=== PATIENT | male | born 1950 | race Caucasian/White ===

== ENCOUNTER 2020-04-04 10:07 | Emergency (ER) | payer MEDICARE, MEDICAID, SELFPAY ==
[2020-04-04 10:12] VITALS: BP 200/101; BP 202/83; PULSE 83; PULSE 84; RESP 20; TEMP 36.6; O2SAT 98; BMI 33.1
--- NOTE | 2020-04-04 11:11 | ED.MALEGU ---
HPI - Male Genitourinary General Chief complaint: Urogenital-Male Stated complaint: BLOOD IN URINE,HIGH BLOOD PRESSURE Time Seen by Provider: 04/04/20 11:11 Source: patient Mode of arrival: ambulatory Limitations: no limitations History of Present Illness HPI Narrative: patient recently admitted and discharged on 02/01 for UTI /urosepsis urine culture grew Enterococcus which was resistant to multiple antibiotics was prescribed Levaquin for 2 weeks. Patient does have history of hematuria post recent bladder intervention for bladder cancer in 01/05/20 and there is no change in hematuria patient came here as continuation of hematuria and now complaining of pain on the left side of abdomen for last few days Related Data Sexually active: Yes Allergies Allergy/AdvReac Type Severity Reaction Status Date / Time piperacillin [From ZOSYN] Allergy Intermediate REDNESS/WARMTH Verified 04/04/20 10:27 TO IV SITE. tazobactam [From ZOSYN] Allergy Intermediate REDNESS/WARMTH Verified 04/04/20 10:27 TO IV SITE. ibuprofen Allergy Unknown Unknown Verified 04/04/20 10:27 lamotrigine [Lamictal] Allergy Unknown Unknown Verified 04/04/20 10:27 Anti-Inflammatory Enzyme Allergy Unknown rash on Uncoded 02/12/20 00:00 both legs Review of Systems Review of Systems: Constitutional : No Weight loss, No Fever, No Chills, No Night Sweats, No Fatigue, No Malaise ENT/Mouth : No Hearing loss, No Ear Pain, No Nasal Congestion, No Sinus Pain, No Hoarseness, No sore throat, No Rhinorrhea, No Swallowing Difficulty Eyes: No Eye Pain, No Swelling, No Redness, No Foreign Body, No Discharge, No Vision Changes Cardiovascular : No Chest Pain, No SOB, No Dyspnea on Exertion, No Orthopnea, No Edema, No Palpitations Respiratory : No Cough, No Sputum, No Wheezing, No Smoke Exposure, No Dyspnea Gastrointestinal : neg Nausea, neg Vomiting, neg Diarrhea, positive abdominal Pain, No Hematochezia, No Melena Genitourinary : no irregular bleeding, No Dysuria, No Urinary Frequency, ++Hematuria, No Urinary Incontinence, No Urgency, No Flank Pain, No Urinary Flow Changes, No Hesitancy Musculoskeletal : No joint pain, No Myalgias, No Joint Swelling Skin : No Skin Lesions, No rash Neuro : No Weakness, No Numbness, No Paresthesias, No Loss of Consciousness, No Dizziness, No Headache Psych : No Anxiety/Panic, No Depression, No SI/HI/AH/VH, No Social Issues, Heme/Lymph: No Bruising, No Bleeding,No Lymphadenopathy Endocrine : No Polyuria, No Polydipsia, No Temperature Intolerance NEUROLOGIC: Alert and oriented x 3. Strength and sensation to light touch were grossly intact x 4. Yes all other systems are reviewed and are negative PMFSH Past Medical History Medical History Asthma Bladder cancer H disease HLD (hyperlipidemia) HTN (hypertension) Metabolic encephalopathy Sepsis Social History Social History Alcohol intake: never Smoking Status: Never smoker Smoked in Last 30 Days: No Use of substances other than those prescribed or required for medical reasons: No Advance Directives: No Advance Directives Information Provided: Yes Physical Exam Vital Signs and I&O and Narrative: Vital Signs and I&O: Vital Signs Temp 982 F H 04/04/20 13:41 Pulse 68 04/04/20 13:41 Resp 18 04/04/20 13:41 BP 188/82 H 04/04/20 13:41 Pulse Ox 97 04/04/20 13:41 Intake & Output 04/03/20 04/04/20 04/04/20 18:59 06:59 18:59 Intake Total 1000 / 1000 Balance 1000 / 1000 Weight 98.883 kg Intake: Intake, IV Amoun t 1000 / 1000 0.9 % Sodium C hloride 1,000 ml 1000 / 1000 @ 999 mls/hr I VCONT .Q1H1M [facility] Rx#:[id number] Body Mass Index 33.1 VITAL SIGNS: Reviewed. GENERAL: Well developed, well nourished, in no acute distress. HEAD: Normocephalic/atraumatic, Posterior oropharynx was without edema, erythema or exudate. EYES: PERRLA, Pupils <>, EOMI intact without pain, no nystagmus/pallor/icterus noted EARS: Ext canals without abnormality, TMs non-bulging and non-erythematous NOSE: Nares patent bilateral OROPHARYNX: no oral lesions noted, posterior pharynx clear and non-erythematous without noted tonsillar enlargement/erythema/exudates NECK: Supple, no adenopathy LUNGS: Normal breath sounds. No adventitious sounds or accessory muscle use. SpO2<> CARDIOVASCULAR: Regular rate and rhythm without noted murmurs, no JVD or lower extremity edema. ABDOMEN: Soft, mild tender LLQ, non-distended with bowel sounds. No rigidity. No guarding. No palpable masses or hernias noted MUSCULOSKELETAL: No tenderness, deformities, or effusions noted on gross inspection. EXTREMITIES: No cyanosis, clubbing or edema. SKIN: Inspection of the skin reveals no rashes, ulcerations, jaundice, pallor, or petechiae Course Course Course Narrative: patient with gross hematuria for more than 6 months secondary to bladder cancer seen urologist who did cystoscopy and removed the tumor in 02/17. Patient continued to bleed H&H is stable dropped to 8.6 from 9[address] Case discussed Dr[address] nereyda gamez urologist will see him in the office in 2 days advised to continue his old medications and drink plenty of water. I will give patient 1 g of tranexamic acid IV Reevaluation(s) Time: 13:55 Reevaluation #2: patient would like to go home refused to have finish tranexamic acid received only 500 mg will see urologist in 2 days MDM - Male Genitourinary Lab Data Result diagrams: 04/04/20 11:38 04/04/20 11:38 Labs: Lab Results 04/04/20 04/04/20 04/04/20 Range/Units 11:38 11:38 11:38 WBC 5.6 (4.8-10.8) X10*3/uL RBC 3.51 L (4.60-5.80) X10*6/uL Hgb 8.6 L (14.0-18.0) g/dl Hct 28.7 L (42-52) % MCV 81.8 (80-98) fL MCH 24.5 L (27.0-33.0) pg MCHC 30.0 L (31.0-36.0) g/dl RDW 14.2 (11.0-16.0) % Plt Count 243 (160-400) X10*3/uL MPV 11.5 (9.4-12.4) fL Immature Gran % (Auto) 0.4 (0.0-0.4) % Neut % (Auto) 73.7 H (45-73) % Lymph % (Auto) 19.4 L (20-40) % [place] % (Auto) 4.7 (2-11) % Eos % (Auto) 1.4 (0-4) % Baso % (Auto) 0.4 (0-2) % Neut # (Auto) 4.1 (2.0-8.3) X10*3/uL Lymph # (Auto) 1.1 L (1.2-4.9) X10*3/uL [place] # (Auto) 0.3 (0.1-1.2) X10*3/uL Eos # (Auto) 0.1 (0.0-0.4) X10*3/uL Baso # (Auto) 0.0 (0.0-0.2) X10*3/uL Abs Immat Gran (auto) 0.02 (0.00-0.03) X10*3/uL Absolute Nucleated RBC 0.000 (0.0-0.012) X10*3/uL Nucleated RBC % (auto) 0.0 (0.0-0.2) /100WBC Sodium 141 (135-145) mmol/L Potassium 4.6 (3.3-5.1) mmol/l Chloride 109 H (96-108) mmol/L Carbon Dioxide 24 (22-29) mmol/L Anion Gap 13 (12-20) BUN 13 (9-16) mg/dL Creatinine 1.31 (0.5-1.4) mg/dL Estim Creat Clear Calc 60.6 Estimated GFR 54 Random Glucose 105 (60-115) mg/dL Calcium 8.7 (8.4-10.2) mg/dL Total Bilirubin 0.7 (0.0-1.0) mg/dL AST 11 (5-37) U/L ALT 9 (0-40) U/L Alkaline Phosphatase 97 (39-117) U/L Total Protein 6.4 L (6.5-8.0) g/dL Albumin 4.0 (3.5-5.0) g/dL Urine Color RED Urine Appearance TURBID Urine pH 8.5 H (5.0-8.0) Ur Specific [place] 1.020 (1.005-1.025) Urine Protein 1+ H (NEG-TRACE) MG/DL Urine Glucose (UA) NEG (NEG) MG/DL Urine Ketones NEG (NEG) MG/DL Urine Blood 3+ H (NEG) Urine Nitrite NEG (NEG) Ur Leukocyte Esterase NEG (NEG) Urine RBC TNTC H (0) /HPF Urine WBC 1-4 (0-4) /HPF Ur Squamous Epith Cells NONE /LPF Urine Bacteria NONE /LPF Discharge Plan Discharge Clinical Impression: Hematuria Qualifiers: Hematuria type: gross Qualified Code(s): R31.0 - Gross hematuria Patient Disposition: Home, Self-Care Instructions: Hematuria (ED) Additional Instructions: call Urologist office tomorrow for appointment in next 2 days, drink plenty of fluids Referrals: Goyo Ortiz III, MD [Physician] - 2 days
[2020-04-04 11:19] VITALS: BP 176/89; PULSE 75
--- NOTE | 2020-04-04 11:20 | PC.NURSE ---
PT ALERT AND ORIENTED X4. SKIN PALE, WARM, DRY. PT REPORTS URINARY PROCEDURE BY DR. STARK ABOUT 2 MONTHS AGO AND HEMATURIA SINCE. PT DENIES DYSURIA. STATES HE IS ABLE TO FULLY EMPTY BLADDER. PT ALSO REPORTS LLQ PAIN, TENDER TO PALPATION. REPORTS A LITTLE NAUSEA. DENIES VOMITING, DIARRHEA. PT VOIDED APPROX 150ML CLEAR RED/ BROWN URINE. DR. SCHMITT AT BEDSIDE FOR INITIAL EVAL.
[2020-04-04 11:47] LABS: MANUAL DIFF FLAG NO
[2020-04-04 11:54] LABS: Basophils Percent Auto 0.4 % (0-2); Eosinophils Absolute Auto 0.1 X10*3/uL (0.0-0.4); Eosinophils Percent Auto 1.4 % (0-4); Hematocrit 28.7 % (42-52); Hemoglobin 8.6 g/dl (14.0-18.0); Imm Gran Abs Auto 0.02 X10*3/uL (0.00-0.03); Imm Gran Pct Auto 0.4 % (0.0-0.4); Lymphocytes Absolute Auto 1.1 X10*3/uL (1.2-4.9); Lymphocytes Percent Auto 19.4 % (20-40); Mean Corpuscular Hemoglobin 24.5 pg (27.0-33.0); Mean Corpuscular Volume 81.8 fL (80-98); Mean Platelet Volume 11.5 fL (9.4-12.4); Monocytes Absolute Auto 0.3 X10*3/uL (0.1-1.2); Monocytes Percent Auto 4.7 % (2-11); Neutrophils Absolute Auto 4.1 X10*3/uL (2.0-8.3); Neutrophils Percent Auto 73.7 % (45-73); Platelet Count 243 X10*3/uL (160-400); Red Blood Count 3.51 X10*6/uL (4.60-5.80); Red Cell Distribution Width 14.2 % (11.0-16.0); White Blood Count 5.6 X10*3/uL (4.8-10.8)
[2020-04-04] MEDS: Morphine Sulfate 4 MG/ML CARTRIDGE IVPUSH (11:55)
[2020-04-04] MEDS: ondansetron HCL 4 MG/2 ML VIAL IVPUSH (11:55)
[2020-04-04] MEDS: 0.9 % Sodium Chloride 1,000 ML 999 ML IVCONT (11:55)
[2020-04-04 12:17] LABS: Glucose Urine UA NEG (NEG); Leukocyte Esterase Urine NEG (NEG); Nitrite Urine NEG (NEG); PH 8.5 (5.0-8.0); Urine Blood 3+ (NEG); Urine Ketones NEG (NEG)
[2020-04-04 12:42] LABS: Alanine Aminotransferase 9 U/L (0-40); Alkaline Phosphatase 97 U/L (39-117); Anion Gap 13 (12-20); Aspartate Amino Transferase 11 U/L (5-37); Bilirubin Total 0.7 mg/dL (0.0-1.0); Blood Urea Nitrogen 13 mg/dL (9-16); Calcium 8.7 mg/dL (8.4-10.2); Carbon Dioxide 24 mmol/L (22-29); Chloride 109 mmol/L (96-108); Creatinine Clr Calc Pharmacy 60.6; Estimated Glomerular Filt Rate 54; Glucose Random 105 mg/dL (60-115); Potassium 4.6 mmol/l (3.3-5.1); Sodium 141 mmol/L (135-145); Total Protein 6.4 g/dL (6.5-8.0)
[2020-04-04 12:46] LABS: Appearance Urine TURBID; Urine Protein 1+ MG/DL (NEG-TRACE)
[2020-04-04 12:48] LABS: Color Urine RED
[2020-04-04 12:52] LABS: RBC Urine TNTC /HPF (0)
[2020-04-04 13:41] VITALS: BP 188/82; PULSE 68; RESP 18; TEMP 527.7; TEMP 982; O2SAT 97
--- NOTE | 2020-04-04 14:01 | PC.NURSE ---
PT EXPRESSING FRUSTERATION THAT HE WILL NOT BE ADMITTED. STATED JUST STOP THIS MEDICATION, I WANT TO LEAVE. THIS RN AND DR. SCHMITT ATTEMPTED TO CONVINCE PT TO STAY UNTIL TRANEXAMIC ACID FINISHED INFUSING, BUT PT REFUSED. APPROX 50-75% OF MED INFUSED.
== END 2020-04-04 14:04 | disposition home or self-care (01) ==
PROVIDERS: Emergency Provider Internal Medicine; PCP Internal Medicine
DX: R31.0 Gross hematuria (principal); C67.9 Malignant neoplasm of bladder, unspecified; I10 Essential (primary) hypertension; Z79.899 Other long term (current) drug therapy
CPT/HCPCS: 36415; 80053; 81001; 81003; 85025; 96361; 96374; 96375; 99284; J2270; J2405

== ENCOUNTER 2020-08-30 08:11 | Outpatient (REF) | payer MEDICARE, MEDICAID, SELFPAY ==
[2020-08-30 14:45] LABS: Hematocrit 32.5 % (42-52); Hemoglobin 9.6 g/dl (14.0-18.0); Mean Corpuscular HGB Conc 29.5 g/dl (31.0-36.0); Mean Corpuscular Hemoglobin 22.4 pg (27.0-33.0); Mean Corpuscular Volume 75.8 fL (80-98); Mean Platelet Volume 10.9 fL (9.4-12.4); Platelet Count 373 X10*3/uL (160-400); Red Blood Count 4.29 X10*6/uL (4.60-5.80); Red Cell Distribution Width 18.1 % (11.0-16.0); White Blood Count 8.9 X10*3/uL (4.8-10.8)
== END 2020-08-30 08:12 | disposition home or self-care (01) ==
LOC: HO.MDS 08:11
PROVIDERS: Visit Provider Internal Medicine
DX: D64.9 Anemia, unspecified (principal)
CPT/HCPCS: 36415; 36430; 85027; 86850; 86900; 86923; P9016

== ENCOUNTER 2020-09-04 04:31 | Emergency (ER) | payer MEDICARE, MEDICAID, SELFPAY ==
[2020-09-04 04:41] VITALS: BP 164/71; PULSE 81; RESP 15; TEMP 36; O2SAT 99; BMI 30.5
--- NOTE | 2020-09-04 05:00 | ED_ITS ---
HPI - Skin/Abscess/Foreign Bdy General Chief complaint: Allergic Reaction Stated complaint: Rash Time Seen by Provider: 09/04/20 04:36 Source: patient Mode of arrival: ambulatory Limitations: no limitations History of Present Illness HPI narrative: rash x 2 weeks did well with steroids but rash returned, has derm appointment in next couple of weeks complaint: rash Onset (ago): week(s) (2) Location: chest, LUE and RUE Severity: mild Quality: pruritic Pain Consistency: constant Relieving factors: medication Exacerbating factors: none Context: none Associated symptoms: denies other symptoms Treatments prior to arrival: OTC topical medication Related Data Home Medications Medication Instructions Recorded Confirmed albuterol sulfate 90 mcg/actuation 2 puff INHALATION Q4-6H PRN 06/17/20 08/24/20 aerosol inhaler atenolol 25 mg tablet 25 mg PO DAILY 06/17/20 08/24/20 budesonide-formoterol HFA 160 2 puff INHALATION BID 06/17/20 08/24/20 mcg-4.5 mcg/actuation aerosol inhaler Previous Rx's Medication Instructions Recorded zolpidem 10 mg tablet 10 mg PO BEDTIME PRN 30 Days #30 08/05/20 tab hydroxyzine HCl 25 mg tablet 25 mg PO TID PRN #30 tab 08/22/20 prednisone 10 mg tablet See Rx Instructions PO DAILY #20 08/22/20 tab oxycodone 20 mg tablet 20 mg PO .COMPLEX PRN 28 Days #84 09/02/20 tab hydrocortisone 1 appl TOPICAL BID PRN #28.4 g 09/04/20 prednisone 40 mg PO DAILY 5 Days #10 tab 09/04/20 Allergies Allergy/AdvReac Type Severity Reaction Status Date / Time piperacillin [From ZOSYN] Allergy Intermediate REDNESS/WARMTH Verified 09/02/20 12:48 TO IV SITE. tazobactam [From ZOSYN] Allergy Intermediate REDNESS/WARMTH Verified 09/02/20 12:48 TO IV SITE. ibuprofen Allergy Unknown Unknown Verified 09/02/20 12:48 lamotrigine [Lamictal] Allergy Unknown Unknown Verified 09/02/20 12:48 Anti-Inflammatory Enzyme Allergy Unknown rash on Uncoded 08/24/20 12:40 both legs Review of Systems Review of Systems: Constitutional : No Fever, No Chills ENT/Mouth : No sore throat, No Rhinorrhea Eyes: No Eye Pain, No Swelling, No Redness Cardiovascular : No Chest Pain, No SOB Respiratory : No Cough, No Sputum Gastrointestinal : No Nausea, No Vomiting, No Diarrhea, No abdominal Pain Genitourinary : No Dysuria, No Hematuria Musculoskeletal : No joint pain, No Myalgias, No Joint Swelling Skin : No Skin Lesions, positive skin rash Neuro : No Weakness, No Numbness, No Headache Psych : No Anxiety, No Depression [facility] Past Medical History Medical History Asthma Benign essential hypertension Bladder cancer Chronic kidney disease (CKD), stage III (moderate) H disease Hematuria HLD (hyperlipidemia) HTN (hypertension) Insomnia Lumbar degenerative disc disease Metabolic encephalopathy Obesity (BMI 30-39.9) Pure hypercholesterolemia Sepsis Type 2 diabetes mellitus with diabetic chronic kidney disease Surgical History History of bladder surgery History of cystoscopy Family History Family History Father Hypertension CVD (cardiovascular disease) Mother No problems noted. Social History Social History Alcohol intake: unknown Smoking Status: Unknown if ever smoked Use of substances other than those prescribed or required for medical reasons: Unknown Advance Directives: No Advance Directives Information Provided: No Physical Exam Vital Signs: Vital Signs: Last Vital Signs Temp 96.8 F 09/04/20 04:41 Pulse 81 09/04/20 04:41 Resp 15 09/04/20 04:41 BP 164/71 H 09/04/20 04:41 Pulse Ox 99 09/04/20 04:41 Body Mass Index 30.5 Appearance: Alert. Oriented X3. No acute distress. Eyes: Pupils equal, round and reactive to light. ENT: Pharynx normal. Neck: Normal inspection. Neck supple. CVS: Normal heart rate and rhythm. Pulses normal. Respiratory: No respiratory distress. Breath sounds normal. Abdomen: Soft and nontender. Skin: Skin warm and dry. on forearms pink shiny and somewhat flaky excoriated rash no signs of cellulitis or abscess Extremities: No lower extremity edema. Neuro: Oriented X 3. No motor deficit. No sensory deficit. MDM - Skin/Abscess/Foreign Bdy MDM Narrative Medical decision making narrative: 70 yo male with raised excoriated shiny flaking rash on extremities appears consistent wtih a dermatitis - will start on steroids and topical hydrocortisone refer to dermatology Lab Data Result diagrams: 09/04/20 05:03 Labs: Lab Results 09/04/20 Range/Units 05:03 Sodium 143 (135-145) mmol/L Potassium 4.3 (3.3-5.1) mmol/L Chloride 112 H (96-108) mmol/L Carbon Dioxide 24 (22-29) mmol/L Anion Gap 11 L (12-20) BUN 15 (9-16) mg/dL Creatinine 1.17 (0.5-1.4) mg/dL Estim Creat Clear Calc 65.3 Estimated GFR > 60 Random Glucose 110 (60-115) mg/dL Calcium 8.8 (8.4-10.2) mg/dL Discharge Plan Discharge Clinical Impression: Allergic contact dermatitis Patient Disposition: Home, Self-Care Instructions: Contact Dermatitis (ED) Additional Instructions: return to ED for any worsening symptoms or concerns Prescriptions: New prednisone 20 mg tablet 40 mg PO DAILY 5 Days Qty: 10 RF: 0 hydrocortisone 1 % cream 1 appl topical BID PRN (Reason: itching) Qty: 28.4 RF: 0 No Action zolpidem 10 mg tablet 10 mg PO BEDTIME PRN (Reason: insomnia) 30 Days Qty: 30 RF: 1 oxycodone 20 mg tablet 20 mg PO .COMPLEX PRN (Reason: SEVERE PAIN) 28 Days Qty: 84 RF: 0 albuterol sulfate 90 mcg/actuation HFA aerosol inhaler 2 puff inhalation Q4-6H PRNRF: 0 atenolol 25 mg tablet 25 mg PO DAILY RF: 0 budesonide-formoterol [Symbicort] 160-4.5 mcg/actuation HFA aerosol inhaler 2 puff inhalation BID RF: 0 prednisone 10 mg tablet See Rx Instructions PO DAILY Qty: 20 RF: 0 hydroxyzine HCl 25 mg tablet 25 mg PO TID PRN (Reason: itching) Qty: 30 RF: 0 Referrals: Nelson Pineda MD [Primary Care Provider] - 2 days (you need to see a chemical processing equipment repairer)
[2020-09-04] MEDS: predniSONE 20 MG TABLET 60 MG PO (05:20)
[2020-09-04 05:42] LABS: Blood Urea Nitrogen 15 mg/dL (9-16); Calcium 8.8 mg/dL (8.4-10.2); Creatinine Clr Calc Pharmacy 65.3; Estimated Glomerular Filt Rate > 60; Glucose Random 110 mg/dL (60-115)
[2020-09-04 05:51] LABS: Anion Gap 11 (12-20); Carbon Dioxide 24 mmol/L (22-29); Chloride 112 mmol/L (96-108); Potassium 4.3 mmol/L (3.3-5.1); Sodium 143 mmol/L (135-145)
== END 2020-09-04 07:07 | disposition home or self-care (01) ==
PROVIDERS: Emergency Provider Emergency Medicine; PCP Internal Medicine
DX: L23.9 Allergic contact dermatitis, unspecified cause (principal); E11.22 Type 2 diabetes mellitus with diabetic chronic kidney disease; I12.9 Hypertensive chronic kidney disease with stage 1 through stage 4 chronic kidney disease, or unspecified chronic kidney disease; N18.30 Chronic kidney disease, stage 3 unspecified; J45.909 Unspecified asthma, uncomplicated; Z85.51 Personal history of malignant neoplasm of bladder; E78.5 Hyperlipidemia, unspecified
CPT/HCPCS: 36415; 80048; 99283; 99284

== ENCOUNTER 2020-10-19 14:45 | Emergency (ER) | payer MEDICARE, MEDICAID, SELFPAY ==
--- NOTE | 2020-10-19 | ECG_ITS ---
Test Reason : CHEST PAIN Blood Pressure : / mmHG Vent. Rate : 070 BPM Atrial Rate : 070 BPM P-R Int : 194 ms QRS Dur : 112 ms QT Int : 414 ms P-R-T Axes : 035 -13 015 degrees QTc Int : 447 ms Normal sinus rhythm Minimal voltage criteria for LVH, may be normal variant Borderline ECG When compared with ECG of 28-JAN-2020 13:35, Vent. rate has decreased BY 41 BPM Referred By: Generic ED Physician Electronically Signed By:Salas Vanessa
[2020-10-19 14:52] VITALS: BP 189/82; BP 194/90; PULSE 73; PULSE 76; RESP 18; TEMP 36.8; O2SAT 100; O2SAT 98; BMI 30.4
[2020-10-19 15:15] VITALS: BP 172/77; PULSE 74; RESP 18; TEMP 36.6; O2SAT 100
--- NOTE | 2020-10-19 16:24 | ED.CHESTPAIN ---
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 stressed out with anxiety felt left-sided chest pain pulsating corrected for a few minutes while walking no radiation of pain no diaphoresis no shortness of breath no nausea or vomiting patient had similar pain in the past with workup negative Related Data Home Medications Medication Instructions Recorded Confirmed albuterol sulfate 90 mcg/actuation 2 puff INHALATION Q4-6H PRN 06/17/20 10/16/20 aerosol inhaler atenolol 25 mg tablet 25 mg PO DAILY 06/17/20 10/16/20 budesonide-formoterol HFA 160 2 puff INHALATION BID 06/17/20 10/16/20 mcg-4.5 mcg/actuation aerosol inhaler Previous Rx's Medication Instructions Recorded hydroxyzine HCl 25 mg tablet 25 mg PO TID PRN #30 tab 08/22/20 hydrocortisone 1 appl TOPICAL BID PRN #28.4 g 09/04/20 amlodipine 5 mg tablet 5 mg PO DAILY 30 Days #30 tab 09/08/20 triamcinolone acetonide 0.025 % 1 appl TOPICAL BID 10 Days #60 ml 09/08/20 lotion prednisone 20 mg tablet 40 mg PO DAILY 5 Days #10 tab 09/25/20 oxycodone 20 mg tablet 20 mg PO .COMPLEX PRN 28 Days #84 10/03/20 tab prednisone 10 mg tablet See Rx Instructions PO DAILY #20 10/03/20 tab zolpidem 10 mg tablet 10 mg PO BEDTIME PRN 30 Days #30 10/03/20 tab prednisone 10 mg PO DAILY #7 tab 10/19/20 Allergies Allergy/AdvReac Type Severity Reaction Status Date / Time piperacillin [From ZOSYN] Allergy Intermediate REDNESS/WARMTH Verified 10/16/20 18:19 TO IV SITE. tazobactam [From ZOSYN] Allergy Intermediate REDNESS/WARMTH Verified 10/16/20 18:19 TO IV SITE. ibuprofen Allergy Unknown Unknown Verified 10/16/20 18:19 lamotrigine [Lamictal] Allergy Unknown Unknown Verified 10/16/20 18:19 Anti-Inflammatory Enzyme Allergy Unknown rash on Uncoded 10/16/20 18:19 both legs Review of Systems Review of Systems: Constitutional : No Weight loss, No Fever, No Chills ENT/Mouth : No sore throat, No Rhinorrhea Eyes: No Eye Pain, No Swelling Cardiovascular : ++ Chest Pain, no palpitations Respiratory : No Cough, No Sputum, no shortness of breath Gastrointestinal : no Nausea, No Vomiting, No Diarrhea, No abdominal Pain, no black stools Genitourinary : No Dysuria, No Urinary Frequency Musculoskeletal : No joint pain, No Myalgias, No Joint Swelling Skin : No Skin Lesions, No rash Neuro : No Weakness, No Numbness, No Dizziness, No Headache Psych : No Anxiety/Panic, No Depression Heme/Lymph: No Bruising, No Lymphadenopathy Endocrine : No Polyuria, No Polydipsia All other systems reviewed and are negative [facility] Past Medical History Medical History Anemia Asthma Benign essential hypertension Bladder cancer Chronic kidney disease (CKD), stage III (moderate) H disease Hematuria HLD (hyperlipidemia) HTN (hypertension) Insomnia Lumbar degenerative disc disease Metabolic encephalopathy Obesity (BMI 30-39.9) Pruritic erythematous rash Pure hypercholesterolemia Sepsis 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 Social History Social History Alcohol intake: unknown Smoking Status: Unknown if ever smoked Advance Directives: No Advance Directives Information Provided: Yes Physical Exam Vital Signs: Vital Signs: Last Vital Signs Temp 98.2 F 10/19/20 16:36 Pulse 71 10/19/20 16:36 Resp 17 10/19/20 16:36 BP 175/84 H 10/19/20 16:49 Pulse Ox 98 10/19/20 16:36 Body Mass Index 30.4 Appearance: Alert. Oriented X3. No acute distress. anxious Eyes: Pupils equal, round and reactive to light. ENT: Pharynx normal. Neck: Normal inspection. Neck supple. CVS: Normal heart rate and rhythm. Pulses normal. Respiratory: No respiratory distress. Breath sounds normal. Abdomen: Soft and nontender. Bowel sounds are present, no mass palpable, no CVA tenderness Skin: Skin warm and dry. Normal skin color. Normal skin turgor. Extremities: No lower extremity edema. Neuro: Oriented X 3. No motor deficit. No sensory deficit. MDM - Chest Pain MDM Narrative Medical decision making narrative: Patient with atypical chest pain more interested in getting the pain medication for body aches and asking for prednisone not worried about chest pain no chest pain on arrival patient had just received 84 tablets of oxycodone on 10/03. Patient advised not to take that much pain medication and follow with PCP. Also patient insisted on getting prednisone for chronic dermatitis and has seen web pressman in the past gave him prednisone I advised him to use triamcinolone cream but patient insisting to get prednisone Lab Data Attestation: I reviewed the patient's lab results. Result diagrams: 10/19/20 16:34 10/19/20 16:34 Labs: Lab Results 10/19/20 10/19/20 10/19/20 Range/Units 16:34 16:34 16:34 WBC 7.5 (4.8-10.8) X10*3/uL RBC 3.97 L (4.60-5.80) X10*6/uL Hgb 9.4 L (14.0-18.0) g/dl Hct 32.2 L (42-52) % MCV 81.1 (80-98) fL MCH 23.7 L (27.0-33.0) pg MCHC 29.2 L (31.0-36.0) g/dl RDW 20.2 H (11.0-16.0) % Plt Count 260 D (160-400) X10*3/uL MPV 11.4 (9.4-12.4) fL Immature Gran % (Auto) 1.7 H (0.0-0.4) % Neut % (Auto) 60.7 (45-73) % Lymph % (Auto) 27.5 (20-40) % [place] % (Auto) 6.8 (2-11) % Eos % (Auto) 2.9 (0-4) % Baso % (Auto) 0.4 (0-2) % Lymph # (Auto) 2.1 (1.2-4.9) X10*3/uL [place] # (Auto) 0.5 (0.1-1.2) X10*3/uL Eos # (Auto) 0.2 (0.0-0.4) X10*3/uL Baso # (Auto) 0.0 (0.0-0.2) X10*3/uL Abs Immat Gran (auto) 0.13 H (0.00-0.03) X10*3/uL Absolute Neuts (auto) 4.6 (2.0-8.3) X10*3/uL Absolute Nucleated RBC 0.000 (0.0-0.012) X10*3/uL Nucleated RBC % (auto) 0.0 (0.0-0.2) /100WBC PT 11.6 (10.8-13.0) SEC INR 1.0 (0.9-1.1) APTT 31.7 (24.1-38.0) SEC Sodium 142 (135-145) mmol/L Potassium 3.7 (3.3-5.1) mmol/L Chloride 106 (96-108) mmol/L Carbon Dioxide 30 H (22-29) mmol/L Anion Gap 10 L (12-20) BUN 18 H (9-16) mg/dL Creatinine 1.43 H (0.5-1.4) mg/dL Estim Creat Clear Calc 53.3 Estimated GFR 49 Random Glucose 105 (60-115) mg/dL Calcium 8.5 (8.4-10.2) mg/dL Troponin I High Sens (<3.5-35.0) ng/L 10/19/20 Range/Units 16:34 WBC (4.8-10.8) X10*3/uL RBC (4.60-5.80) X10*6/uL Hgb (14.0-18.0) g/dl Hct (42-52) % MCV (80-98) fL MCH (27.0-33.0) pg MCHC (31.0-36.0) g/dl RDW (11.0-16.0) % Plt Count (160-400) X10*3/uL MPV (9.4-12.4) fL Immature Gran % (Auto) (0.0-0.4) % Neut % (Auto) (45-73) % Lymph % (Auto) (20-40) % [place] % (Auto) (2-11) % Eos % (Auto) (0-4) % Baso % (Auto) (0-2) % Lymph # (Auto) (1.2-4.9) X10*3/uL [place] # (Auto) (0.1-1.2) X10*3/uL Eos # (Auto) (0.0-0.4) X10*3/uL Baso # (Auto) (0.0-0.2) X10*3/uL Abs Immat Gran (auto) (0.00-0.03) X10*3/uL Absolute Neuts (auto) (2.0-8.3) X10*3/uL Absolute Nucleated RBC (0.0-0.012) X10*3/uL Nucleated RBC % (auto) (0.0-0.2) /100WBC PT (10.8-13.0) SEC INR (0.9-1.1) APTT (24.1-38.0) SEC Sodium (135-145) mmol/L Potassium (3.3-5.1) mmol/L Chloride (96-108) mmol/L Carbon Dioxide (22-29) mmol/L Anion Gap (12-20) BUN (9-16) mg/dL Creatinine (0.5-1.4) mg/dL Estim Creat Clear Calc Estimated GFR Random Glucose (60-115) mg/dL Calcium (8.4-10.2) mg/dL Troponin I High Sens 7.2 (<3.5-35.0) ng/L ECG Data ECG #1: Attestation: I personally reviewed and interpreted this ECG as follows: Interpretation: Sinus rhythm heart rate 70 beats per minute LVH normal intervals normal axis no acute ischemic changes Discharge Plan Discharge Clinical Impression: Anxiety Chest pain Qualifiers: Chest pain type: unspecified Qualified Code(s): R07.9 - Chest pain, unspecified Patient Disposition: Home, Self-Care Instructions: Chest Pain (ED), Anxiety (ED) Additional Instructions: Take medication as prescribed. Follow with web pressman and PCP for pain management Prescriptions: New prednisone 10 mg tablet 10 mg PO DAILY Qty: 7 RF: 0 No Action prednisone 20 mg tablet 40 mg PO DAILY 5 Days Qty: 10 RF: 0 oxycodone 20 mg tablet 20 mg PO .COMPLEX PRN (Reason: SEVERE PAIN) 28 Days Qty: 84 RF: 0 prednisone 10 mg tablet See Rx Instructions PO DAILY Qty: 20 RF: 0 zolpidem 10 mg tablet 10 mg PO BEDTIME PRN (Reason: insomnia) 30 Days Qty: 30 RF: 1 hydrocortisone 1 % cream 1 appl topical BID PRN (Reason: itching) Qty: 28.4 RF: 0 albuterol sulfate 90 mcg/actuation HFA aerosol inhaler 2 puff inhalation Q4-6H PRNRF: 0 atenolol 25 mg tablet 25 mg PO DAILY RF: 0 budesonide-formoterol [Symbicort] 160-4.5 mcg/actuation HFA aerosol inhaler 2 puff inhalation BID RF: 0 hydroxyzine HCl 25 mg tablet 25 mg PO TID PRN (Reason: itching) Qty: 30 RF: 0 amlodipine 5 mg tablet 5 mg PO DAILY 30 Days Qty: 30 RF: 2 triamcinolone acetonide 0.025 % lotion 1 appl topical BID 10 Days Qty: 60 RF: 0
[2020-10-19 16:36] VITALS: BP 184/83; PULSE 71; RESP 17; TEMP 36.8; O2SAT 98
[2020-10-19 16:40] LABS: MANUAL DIFF FLAG NO
[2020-10-19 16:44] LABS: Basophils Percent Auto 0.4 % (0-2); Eosinophils Absolute Auto 0.2 X10*3/uL (0.0-0.4); Eosinophils Percent Auto 2.9 % (0-4); Hematocrit 32.2 % (42-52); Hemoglobin 9.4 g/dl (14.0-18.0); Imm Gran Abs Auto 0.13 X10*3/uL (0.00-0.03); Imm Gran Pct Auto 1.7 % (0.0-0.4); Lymphocytes Absolute Auto 2.1 X10*3/uL (1.2-4.9); Lymphocytes Percent Auto 27.5 % (20-40); Mean Corpuscular HGB Conc 29.2 g/dl (31.0-36.0); Mean Corpuscular Hemoglobin 23.7 pg (27.0-33.0); Mean Corpuscular Volume 81.1 fL (80-98); Mean Platelet Volume 11.4 fL (9.4-12.4); Monocytes Absolute Auto 0.5 X10*3/uL (0.1-1.2); Monocytes Percent Auto 6.8 % (2-11); Neutrophils Absolute Auto 4.6 X10*3/uL (2.0-8.3); Neutrophils Percent Auto 60.7 % (45-73); Platelet Count 260 X10*3/uL (160-400); Red Blood Count 3.97 X10*6/uL (4.60-5.80); Red Cell Distribution Width 20.2 % (11.0-16.0); White Blood Count 7.5 X10*3/uL (4.8-10.8)
[2020-10-19 16:49] VITALS: BP 175/84
[2020-10-19 16:49] LABS: Prothrombin Time 11.6 SEC (10.8-13.0)
[2020-10-19 16:52] LABS: Partial Thromboplastin Time 31.7 SEC (24.1-38.0)
[2020-10-19 17:06] LABS: Anion Gap 10 (12-20); Blood Urea Nitrogen 18 mg/dL (9-16); Calcium 8.5 mg/dL (8.4-10.2); Carbon Dioxide 30 mmol/L (22-29); Chloride 106 mmol/L (96-108); Creatinine Clr Calc Pharmacy 53.3; Estimated Glomerular Filt Rate 49; Glucose Random 105 mg/dL (60-115); Potassium 3.7 mmol/L (3.3-5.1); Sodium 142 mmol/L (135-145)
[2020-10-19 17:14] LABS: Troponin-I High Sensitivity 7.2 ng/L (<3.5-35.0)
== END 2020-10-19 17:36 | disposition home or self-care (01) ==
PROVIDERS: Emergency Provider Internal Medicine; PCP Internal Medicine
DX: R07.9 Chest pain, unspecified (principal); F41.9 Anxiety disorder, unspecified; R53.1 Weakness; E11.22 Type 2 diabetes mellitus with diabetic chronic kidney disease; I12.9 Hypertensive chronic kidney disease with stage 1 through stage 4 chronic kidney disease, or unspecified chronic kidney disease; N18.30 Chronic kidney disease, stage 3 unspecified; C64.2 Malignant neoplasm of left kidney, except renal pelvis; Z85.51 Personal history of malignant neoplasm of bladder
CPT/HCPCS: 36415; 80048; 84484; 85025; 85610; 85730; 93005; 99283; 99284

== ENCOUNTER 2020-11-04 19:17 | Emergency (ER) | payer MEDICARE, MEDICAID, SELFPAY ==
[2020-11-04 19:31] VITALS: BMI 30.4
--- NOTE | 2020-11-04 19:33 | PC.NURSE ---
PA at bedside for wound repair.
[2020-11-04 20:26] VITALS: BP 197/94; PULSE 98; RESP 20; TEMP 36.3; O2SAT 97
--- NOTE | 2020-11-04 20:27 | ED.SKABFB ---
HPI - Skin/Abscess/Foreign Bdy General Chief complaint: Skin/Abscess/Foreign Body Stated complaint: r hand laceration Time Seen by Provider: 11/04/20 20:25 Source: patient Mode of arrival: ambulatory History of Present Illness HPI narrative: 64-year-old male with a past medical history of bladder and kidney cancer presenting to the ED complaining of multiple lacerations to right hand s/p catching falling knife. Tetanus unknown. Denies taking anticoagulation. Denies numbness, tingling, weakness, injury to other area MD complaint: laceration Related Data Home Medications Medication Instructions Recorded Confirmed albuterol sulfate 90 mcg/actuation 2 puff INHALATION Q4-6H PRN 06/17/20 10/16/20 aerosol inhaler atenolol 25 mg tablet 25 mg PO DAILY 06/17/20 10/16/20 budesonide-formoterol HFA 160 2 puff INHALATION BID 06/17/20 10/16/20 mcg-4.5 mcg/actuation aerosol inhaler Previous Rx's Medication Instructions Recorded hydroxyzine HCl 25 mg tablet 25 mg PO TID PRN #30 tab 08/22/20 hydrocortisone 1 appl TOPICAL BID PRN #28.4 g 09/04/20 amlodipine 5 mg tablet 5 mg PO DAILY 30 Days #30 tab 09/08/20 triamcinolone acetonide 0.025 % 1 appl TOPICAL BID 10 Days #60 ml 09/08/20 lotion prednisone 10 mg tablet See Rx Instructions PO DAILY #20 10/03/20 tab prednisone 10 mg PO DAILY #7 tab 10/19/20 oxycodone 20 mg tablet 20 mg PO .COMPLEX PRN 28 Days #84 11/01/20 tab zolpidem 10 mg tablet 10 mg PO BEDTIME PRN 30 Days #30 11/01/20 tab prednisone 20 mg tablet 40 mg PO DAILY 7 Days #14 tab 11/03/20 Allergies Allergy/AdvReac Type Severity Reaction Status Date / Time piperacillin [From ZOSYN] Allergy Intermediate REDNESS/WARMTH Verified 10/16/20 18:19 TO IV SITE. tazobactam [From ZOSYN] Allergy Intermediate REDNESS/WARMTH Verified 10/16/20 18:19 TO IV SITE. ibuprofen Allergy Unknown Unknown Verified 10/16/20 18:19 lamotrigine [Lamictal] Allergy Unknown Unknown Verified 10/16/20 18:19 Anti-Inflammatory Enzyme Allergy Unknown rash on Uncoded 10/16/20 18:19 both legs Review of Systems Review of Systems: Constitutional: No Fever, No Chills Cardiovascular: No Chest Pain, No SOB Respiratory: No Cough, No Sputum, No Wheezing Gastrointestinal: No Nausea, No Vomiting, No Abdominal pain Skin: +lacerations Neuro: No Weakness, No Numbness, No Paresthesias Yes all other systems are reviewed and are negative [facility] Past Medical History Attestation statement: The following information was validated with the patient. 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 Social History Social History Alcohol intake: unknown Smoking Status: Unknown if ever smoked Advance Directives: No Advance Directives Information Provided: No Physical Exam Vital Signs: Vital Signs: Last Vital Signs Temp 97.3 F 11/04/20 20:26 Pulse 98 11/04/20 20:26 Resp 20 11/04/20 20:26 BP 197/94 H 11/04/20 20:26 Pulse Ox 97 11/04/20 20:26 Body Mass Index 30.4 Const: General: cooperative and healthy appearing Orientation/consciousness: patient oriented x3 Limitations: no limitations HENMT: Head: Yes normal to inspection Ears: hearing grossly normal bilaterally General nose exam: Normal external nose present Face and sinus: Yes normal facial exam Eyes: General: appearance normal, both eyes and all related structures EOM: EOMs intact bilaterally Neck: Neck: Yes normal visual inspection and Yes no meningeal signs Resp: Effort & Inspection: normal respiratory effort Cardio: Rate: regular rate Peripheral pulses: radial pulses present Skin: Other: +2cm jagged laceration to right thumb proximal to PIP 1cm superficial laceration to thenar aspect right hand And 1.5cm laceration to the right palm thenar aspect with pulsatile bleeding Rashes: no rashes Neuro: General: patient oriented x3, tone normal and no meningeal signs Gait exam (Neuro): Normal gait present Extrem: Other: FROM right hand/digits intact. Finger to thumb opposition intact. NV intact. Wrist ROM intact Procedures Laceration Laceration 1: Site: hand Side (If applicable): right Size (cm): 2 Description: flap and irregular Local Anesthetic: lidocaine 1% and with epi Amount of anesthesia used (mL): 1 Pre-repair: wound explored and irrigated extensively Skin layer closed with: nylon Size (cm): 4-0 Number of sutures: 4 Technique: simple, interrupted Laceration 2: Site: hand Side (If applicable): right Size (cm): 1 Description: linear and clean Depth: simple, single layer Local Anesthetic: lidocaine 1% Amount of anesthesia used (mL): 2 Pre-repair: wound explored and irrigated extensively Skin layer closed with: nylon Size (cm): 4-0 Number of sutures: 2 Technique: simple, interrupted Laceration 3: Site: hand Size (cm): 1.5 Description: linear Local Anesthetic: lidocaine 1% Amount of anesthesia used (mL): 3 Pre-repair: wound explored Skin layer closed with: nylon Size (cm): 4-0 Number of sutures: 4 Technique: simple, interrupted MDM - Skin/Abscess/Foreign Bdy MDM Narrative Medical decision making narrative: On exam VSS, NAD/well-appearing, initial 1.5 cm laceration to right palm with pulsatile bleeding, controlled with deep suture. Remaining lacerations repaired with sutures. Tetanus updated. FROM/NV intact Discharge Plan Discharge Clinical Impression: Laceration Patient Disposition: Home, Self-Care Instructions: Laceration (ED) Additional Instructions: You need to return to any emergency department or urgent care in 7-10 days to have your stitches taken out Keep area dry and clean Do not get wet for 24 hours, after that you may get wet, but only pat dry, do not scrub Apply bacitracin or Neosporin at home Keep covered if working with hand/dirty If area begins to look infected, is red, there is drainage, or pus please return to the ED immediately Referrals: ED Physician,Generic [Emergency Provider] - 1 week (Return to any emergency department or urgent care in 7-10 days to have her stitches taken out) Interventions: ED Discharge Assessment Last Done: 11/04/20 20:31
[2020-11-04] MEDS: Diphth,Pertus(ACell),Tet Adult 0.5 ML SYRINGE IM (20:39)
--- NOTE | 2020-11-04 20:43 | PC.NURSE ---
Pts arms/hands cleaned of blood. graphic arts technician at bedside bandaging lac. VSS. Pt medicated with Tetanus per AUG. Pt provided with DC paperwork, discharged home with son.
== END 2020-11-04 20:46 | disposition home or self-care (01) ==
PROVIDERS: Emergency Provider Emergency Medicine
DX: S61.411A Laceration without foreign body of right hand, initial encounter (principal); M79.641 Pain in right hand; W26.0XXA Contact with knife, initial encounter; Y93.9 Activity, unspecified; Y92.9 Unspecified place or not applicable; Y99.9 Unspecified external cause status; Z79.899 Other long term (current) drug therapy
CPT/HCPCS: 12002; 90471; 90715; 99284

== ENCOUNTER 2020-11-14 09:14 | Outpatient (REF) | payer MEDICARE, MEDICAID, SELFPAY ==
--- NOTE | 2020-11-14 09:23 | ECG_ITS ---
Test Reason : MALIGNANT NEOPLASM Blood Pressure : / mmHG Vent. Rate : 072 BPM Atrial Rate : 072 BPM P-R Int : 170 ms QRS Dur : 098 ms QT Int : 400 ms P-R-T Axes : 051 -11 016 degrees QTc Int : 438 ms Normal sinus rhythm Normal ECG When compared with ECG of 19-OCT-2020 15:05, No significant change was found Referred By: Thomas Mena Electronically Signed By:SANDRA MARTIN MD
[2020-11-14 10:41] LABS: Eosinophils Absolute Auto 0.3 X10*3/uL (0.0-0.4); Eosinophils Percent Auto 3.9 % (0-4); Mean Platelet Volume 11.3 fL (9.4-12.4); Red Cell Distribution Width 18.4 % (11.0-16.0)
[2020-11-14 10:43] LABS: Basophils Percent Auto 0.2 % (0-2); Hematocrit 29.7 % (42-52); Hemoglobin 8.6 g/dl (14.0-18.0); Imm Gran Abs Auto 0.13 X10*3/uL (0.00-0.03); Lymphocytes Absolute Auto 1.1 X10*3/uL (1.2-4.9); Lymphocytes Percent Auto 16.5 % (20-40); Mean Corpuscular Hemoglobin 23.7 pg (27.0-33.0); Mean Corpuscular Volume 81.8 fL (80-98); Monocytes Absolute Auto 0.4 X10*3/uL (0.1-1.2); Monocytes Percent Auto 6.1 % (2-11); Neutrophils Absolute Auto 4.6 X10*3/uL (2.0-8.3); Neutrophils Percent Auto 71.3 % (45-73); Platelet Count 168 X10*3/uL (160-400); Red Blood Count 3.63 X10*6/uL (4.60-5.80); White Blood Count 6.4 X10*3/uL (4.8-10.8)
[2020-11-14 10:45] LABS: INTERNATIONAL NORM RATIO 0.9 (0.9-1.1)
[2020-11-14 11:12] LABS: Anion Gap 10 (12-20); Blood Urea Nitrogen 17 mg/dL (9-16); Calcium 8.2 mg/dL (8.4-10.2); Carbon Dioxide 27 mmol/L (22-29); Chloride 108 mmol/L (96-108); Estimated Glomerular Filt Rate 56; Glucose Random 98 mg/dL (60-115); Potassium 4.3 mmol/L (3.3-5.1); Sodium 141 mmol/L (135-145)
[2020-11-14 11:41] LABS: Glucose Urine UA NEG (NEG); Leukocyte Esterase Urine TRACE (NEG); Nitrite Urine NEG (NEG); PH 6.5 (5.0-8.0); Urine Blood 3+ (NEG); Urine Ketones NEG (NEG); Urine Protein 1+ MG/DL (NEG-TRACE)
[2020-11-14 11:53] LABS: Appearance Urine CLOUDY; Color Urine YELLOW
[2020-11-14 12:27] LABS: Mucus Urine TRACE /LPF; RBC Urine TNTC /HPF (0); Squamous Epithelial Cell Urine TRACE /LPF
== END 2020-11-14 09:15 | disposition home or self-care (01) ==
LOC: HO.LAB 09:14
PROVIDERS: PCP Internal Medicine; Visit Provider Urology
DX: C65.2 Malignant neoplasm of left renal pelvis (principal)
CPT/HCPCS: 36415; 80048; 81001; 85025; 85610; 86850; 86900; 86901; 87086; 93005

== ENCOUNTER 2021-04-10 10:14 | Inpatient (IN) | payer MEDICARE, MEDICAID, SELFPAY ==
[2021-04-10] VITALS (8 sets, daily range): BP systolic 146–193; BP diastolic 56–113; PULSE 66–96; RESP 16–20; TEMP 36.3–37.1; O2SAT 93–96; BMI 31.4; BMI 32.4
--- NOTE | ~2021-04-10 | US_ITS ---
EXAMINATION: US ABDOMEN COMPLETE CLINICAL INFORMATION: Acute kidney injury. History of bladder cancer.. COMPARISON: CT abdomen pelvis January 28, 2020 TECHNIQUE: Real-time imaging of the abdominal viscera. Color Doppler exam used. FINDINGS: PANCREAS: The head and body of pancreas are normal. The tail is obscured by bowel gas. ABDOMINAL AORTA: The proximal aorta not well seen due to bowel gas the mid and distal aorta are normal. INFERIOR VENA CAVA: Visualized portions are normal. LIVER: There is diffuse increased echogenicity of the parenchyma of liver consistent with fatty change. No focal liver lesion or intrahepatic bile duct dilatation. Right lobe of liver measures 16 cm. GALLBLADDER: Normal. The gallbladder is physiologically distended without evidence of stones, sludge, polyps, wall thickening or pericholecystic fluid. COMMON BILE DUCT: Normal in caliber measuring 0.2 cm in diameter. RIGHT KIDNEY: Normal. No hydronephrosis. No renal calculi or focal parenchymal lesions. The kidney measures 11.7 cm in maximum dimension. LEFT KIDNEY: Status post left nephrectomy. SPLEEN: Spleen is mildly enlarged. The spleen measures 13.4 cm in maximum dimension. FREE FLUID: None. US/US abdomen complete IMPRESSION: 1. Status post left nephrectomy. 2. No acute abnormality of the right kidney. 3. Mild diffuse fatty change of liver. No focal liver lesion. 4. Mild splenomegaly. Spleen measures 13.4 cm.
--- NOTE | 2021-04-10 10:49 | ED_ITS ---
HPI - Weakness General Chief complaint: Weakness Stated complaint: weakness Time Seen by Provider: 04/10/21 10:48 Source: patient Mode of arrival: EMS Limitations: no limitations History of Present Illness HPI Narrative: patient with extensive work up for bladder and prostate cancer and possibly kidney cancer. patient states he is weak all over. MD Complaint: generalized weakness Onset (ago): week(s) Duration: constant Location: generalized Severity: severe Relieving factors: none Exacerbating factors: none Related Data Home Medications Medication Instructions Recorded Confirmed oxycodone 20 mg tablet 1 tab PO BID-TID PRN 04/10/21 04/10/21 Previous Rx's Medication Instructions Recorded Ventolin HFA 90 mcg/actuation 2 puff INHALATION Q4H PRN #18 g NS 03/07/21 aerosol inhaler (albuterol sulfate) zolpidem 10 mg tablet 10 mg PO BEDTIME PRN 30 Days #30 03/24/21 tab ibuprofen 600 mg tablet 600 mg PO Q6H PRN #120 tab 04/02/21 Allergies Allergy/AdvReac Type Severity Reaction Status Date / Time piperacillin [From ZOSYN] Allergy Intermediate REDNESS/WARMTH Verified 02/15/21 10:33 TO IV SITE. tazobactam [From ZOSYN] Allergy Intermediate REDNESS/WARMTH Verified 02/15/21 10:33 TO IV SITE. ibuprofen Allergy Unknown Unknown Verified 02/15/21 10:33 lamotrigine [Lamictal] Allergy Unknown Unknown Verified 02/15/21 10:33 Anti-Inflammatory Enzyme Allergy Unknown rash on Uncoded 02/15/21 10:33 both legs Review of Systems Constitutional: Constitutional: Reports no additional constitutional complaints Eyes: Eyes: Reports no additional eye complaints ENT: Denies dizziness Cardiovascular: Cardiovascular: Reports no additional cardiovascular complaints Respiratory: Respiratory: Reports as per HPI Gastrointestinal: Gastrointestinal: Reports no additional gastrointestinal complaints Musculoskeletal: Musculoskeletal: Reports no additional musculoskeletal complaints Integumentary/Breasts: Skin/Breast: Denies rash Neurologic: Reports system reviewed and no additional complaints, except as documented, Denies dizziness and Denies Sensory deficit (Neuro) Psychiatric: Psychiatric: Denies anxiety [facility] Past Medical History Medical History (Updated 04/10/21 @ 15:11 by Marisela Thomas NP) Anemia Asthma Benign essential hypertension Bipolar disorder Bladder cancer 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 Social History Social History Housing: Apartment Alcohol intake: unknown Patient Tobacco Use Status: Never used Tobacco Use of substances other than those prescribed or required for medical reasons: No Advance Directives: No Advance Directives Information Provided: No service: No Current occupational status: disabled Physical Exam Vital Signs: Vital Signs: Last Vital Signs Temp 98.7 F 04/10/21 10:26 Pulse 94 04/10/21 15:29 Resp 20 04/10/21 15:29 BP 193/90 H 04/10/21 15:29 Pulse Ox 96 04/10/21 15:29 Body Mass Index 31.4 Neuro: Sensory Exam: No Sensory deficit (Neuro) Course Reevaluation(s) Reevaluation #1: patient with renal insufficiency, dehydration and one kidney will admit for ZINA and dehydration Time: 12:56 MDM - Weakness Lab Data Result diagrams: 04/10/21 10:57 04/10/21 10:57 Labs: Lab Results 04/10/21 04/10/21 04/10/21 Range/Units 10:57 10:57 11:42 WBC 9.2 (4.8-10.8) X10*3/uL RBC 4.70 D (4.60-5.80) X10*6/uL Hgb 12.5 L D (14.0-18.0) g/dl Hct 40.2 L D (42-52) % MCV 85.5 (80-98) fL MCH 26.6 L (27.0-33.0) pg MCHC 31.1 (31.0-36.0) g/dl RDW 15.2 (11.0-16.0) % Plt Count 227 D (160-400) X10*3/uL MPV 11.1 (9.4-12.4) fL Immature Gran % (Auto) 0.8 H (0.0-0.4) % Neut % (Auto) 68.3 (45-73) % Lymph % (Auto) 18.9 L (20-40) % [place] % (Auto) 8.3 (2-11) % Eos % (Auto) 3.3 (0-4) % Baso % (Auto) 0.4 (0-2) % Lymph # (Auto) 1.7 (1.2-4.9) X10*3/uL [place] # (Auto) 0.8 (0.1-1.2) X10*3/uL Eos # (Auto) 0.3 (0.0-0.4) X10*3/uL Baso # (Auto) 0.0 (0.0-0.2) X10*3/uL Abs Immat Gran (auto) 0.07 H (0.00-0.03) X10*3/uL Absolute Neuts (auto) 6.3 (2.0-8.3) X10*3/uL Absolute Nucleated RBC 0.000 (0.0-0.012) X10*3/uL Nucleated RBC % (auto) 0.0 (0.0-0.2) /100WBC Sodium 144 (135-145) mmol/L Potassium 4.7 (3.3-5.1) mmol/L Chloride 110 H (96-108) mmol/L Carbon Dioxide 24 (22-29) mmol/L Anion Gap 15 (12-20) BUN 23 H (9-16) mg/dL Creatinine 2.19 H (0.5-1.4) mg/dL Estim Creat Clear Calc 34.8 Estimated GFR 30 Random Glucose 82 (60-115) mg/dL Calcium 9.3 D (8.4-10.2) mg/dL Total Bilirubin 1.5 H (0.0-1.0) mg/dL Direct Bilirubin 0.4 (0.0-0.5) mg/dL AST 15 (5-37) U/L ALT 18 (0-40) U/L Alkaline Phosphatase 80 (39-117) U/L Total Protein 6.9 (6.5-8.0) g/dL Albumin 4.3 (3.5-5.0) g/dL Lipase 19 (8-78) U/L Urine Color YELLOW Urine Appearance CLOUDY Urine pH 6.0 (5.0-8.0) Ur Specific [place] 1.020 (1.005-1.025) Urine Protein 2+ H (NEG-TRACE) MG/DL Urine Glucose (UA) NEG (NEG) MG/DL Urine Ketones NEG (NEG) MG/DL Urine Blood 3+ H (NEG) Urine Nitrite NEG (NEG) Ur Leukocyte Esterase 1+ H (NEG) Urine RBC 76-150 H (0) /HPF Urine WBC 5-9 H (0-4) /HPF Ur Squamous Epith Cells 1+ /LPF Urine Bacteria TRACE /LPF Urine Mucus TRACE /LPF COVID-19 ([facility]) (Negative) COVID-19 Clin Com 04/10/21 Range/Units 14:30 WBC (4.8-10.8) X10*3/uL RBC (4.60-5.80) X10*6/uL Hgb (14.0-18.0) g/dl Hct (42-52) % MCV (80-98) fL MCH (27.0-33.0) pg MCHC (31.0-36.0) g/dl RDW (11.0-16.0) % Plt Count (160-400) X10*3/uL MPV (9.4-12.4) fL Immature Gran % (Auto) (0.0-0.4) % Neut % (Auto) (45-73) % Lymph % (Auto) (20-40) % [place] % (Auto) (2-11) % Eos % (Auto) (0-4) % Baso % (Auto) (0-2) % Lymph # (Auto) (1.2-4.9) X10*3/uL [place] # (Auto) (0.1-1.2) X10*3/uL Eos # (Auto) (0.0-0.4) X10*3/uL Baso # (Auto) (0.0-0.2) X10*3/uL Abs Immat Gran (auto) (0.00-0.03) X10*3/uL Absolute Neuts (auto) (2.0-8.3) X10*3/uL Absolute Nucleated RBC (0.0-0.012) X10*3/uL Nucleated RBC % (auto) (0.0-0.2) /100WBC Sodium (135-145) mmol/L Potassium (3.3-5.1) mmol/L Chloride (96-108) mmol/L Carbon Dioxide (22-29) mmol/L Anion Gap (12-20) BUN (9-16) mg/dL Creatinine (0.5-1.4) mg/dL Estim Creat Clear Calc Estimated GFR Random Glucose (60-115) mg/dL Calcium (8.4-10.2) mg/dL Total Bilirubin (0.0-1.0) mg/dL Direct Bilirubin (0.0-0.5) mg/dL AST (5-37) U/L ALT (0-40) U/L Alkaline Phosphatase (39-117) U/L Total Protein (6.5-8.0) g/dL Albumin (3.5-5.0) g/dL Lipase (8-78) U/L Urine Color Urine Appearance Urine pH (5.0-8.0) Ur Specific [place] (1.005-1.025) Urine Protein (NEG-TRACE) MG/DL Urine Glucose (UA) (NEG) MG/DL Urine Ketones (NEG) MG/DL Urine Blood (NEG) Urine Nitrite (NEG) Ur Leukocyte Esterase (NEG) Urine RBC (0) /HPF Urine WBC (0-4) /HPF Ur Squamous Epith Cells /LPF Urine Bacteria /LPF Urine Mucus /LPF COVID-19 ([facility]) Negative (Negative) COVID-19 Clin Com See Note Discharge Plan Discharge Clinical Impression: Acute kidney injury, Acute dehydration Patient Disposition: Admitted As Inpatient
[2021-04-10] MEDS: 0.9 % Sodium Chloride 1,000 ML 999 ML IVCONT ×2 (10:59→12:25)
[2021-04-10] MEDS: ondansetron HCL 4 MG/2 ML VIAL IVPUSH ×2 (11:02→20:47)
[2021-04-10 11:17] LABS: MANUAL DIFF FLAG NO
[2021-04-10 11:32] LABS: Basophils Percent Auto 0.4 % (0-2); Eosinophils Absolute Auto 0.3 X10*3/uL (0.0-0.4); Eosinophils Percent Auto 3.3 % (0-4); Hematocrit 40.2 % (42-52); Hemoglobin 12.5 g/dl (14.0-18.0); Imm Gran Abs Auto 0.07 X10*3/uL (0.00-0.03); Imm Gran Pct Auto 0.8 % (0.0-0.4); Lymphocytes Absolute Auto 1.7 X10*3/uL (1.2-4.9); Lymphocytes Percent Auto 18.9 % (20-40); Mean Corpuscular HGB Conc 31.1 g/dl (31.0-36.0); Mean Corpuscular Hemoglobin 26.6 pg (27.0-33.0); Mean Corpuscular Volume 85.5 fL (80-98); Mean Platelet Volume 11.1 fL (9.4-12.4); Monocytes Absolute Auto 0.8 X10*3/uL (0.1-1.2); Monocytes Percent Auto 8.3 % (2-11); Neutrophils Absolute Auto 6.3 X10*3/uL (2.0-8.3); Neutrophils Percent Auto 68.3 % (45-73); Platelet Count 227 X10*3/uL (160-400); Red Cell Distribution Width 15.2 % (11.0-16.0); White Blood Count 9.2 X10*3/uL (4.8-10.8)
[2021-04-10 11:45] LABS: Alanine Aminotransferase 18 U/L (0-40); Albumin Level 4.3 g/dL (3.5-5.0); Alkaline Phosphatase 80 U/L (39-117); Anion Gap 15 (12-20); Aspartate Amino Transferase 15 U/L (5-37); Bilirubin Direct 0.4 mg/dL (0.0-0.5); Bilirubin Total 1.5 mg/dL (0.0-1.0); Blood Urea Nitrogen 23 mg/dL (9-16); Calcium 9.3 mg/dL (8.4-10.2); Carbon Dioxide 24 mmol/L (22-29); Chloride 110 mmol/L (96-108); Creatinine Clr Calc Pharmacy 34.8; Estimated Glomerular Filt Rate 30; Glucose Random 82 mg/dL (60-115); Lipase 19 U/L (8-78); Potassium 4.7 mmol/L (3.3-5.1); Sodium 144 mmol/L (135-145); Total Protein 6.9 g/dL (6.5-8.0)
[2021-04-10 11:47] LABS: Appearance Urine CLOUDY; Color Urine YELLOW; Glucose Urine UA NEG (NEG); Leukocyte Esterase Urine 1+ (NEG); Nitrite Urine NEG (NEG); UACC Culture Trigger YES; Urine Blood 3+ (NEG); Urine Ketones NEG (NEG); Urine Protein 2+ MG/DL (NEG-TRACE)
[2021-04-10 12:15] LABS: Bacteria Urine TRACE /LPF; Mucus Urine TRACE /LPF; Squamous Epithelial Cell Urine 1+ /LPF
--- NOTE | 2021-04-10 13:31 | PM.IMHP ---
History of Present Illness Date of Service: 04/10/21 71-year-old man presented to the ER with complaints of weakness, dizziness and nausea over the last few days. He has a history of cancer of the left renal pelvis and ureter as well as bladder cancer that he was diagnosed with in 2010 and has undergone several ureteral procedures. He stated that he was also diagnosed with prostate cancer however, there is no documentation of that. His vital signs are stable although his blood pressure is noted to be elevated. HIs creatitine is elevated at 2.19. last creat of 1.27 in 10/2020. Urinalysis mildly positive with hx of kleibsiella. Bladder scan showed 60ml post void. He did report poor appetite and some nausea. No chest pain, sob, vomiting, diarrhea, bloody stool or urine. he was given a Liter of IV fluid. He will be admitted for further management and treatment of ZINA, nausea and generalized pain Review of Systems Review of Systems: Denies any recent fever chills or decrease in appetite respiratory denies any shortness of breath coverage production cardiovascular is adjustment of any PND or edema gastrointestinal denies any dysphagia abdominal pain nausea vomiting or diarrhea genitourinary denies any dysuria frequency or hematuria musculoskeletal denies any joint pain or swelling neuropsych denies any weakness or seizures all other systems reviewed are negative [facility] Medical History (Updated 04/10/21 @ 15:11 by Marisela Thomas NP) Anemia Asthma Benign essential hypertension Bipolar disorder Bladder cancer 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 Pertinent family history: . Surgical History History of bladder surgery History of cystoscopy History of left nephrectomy (~11/29/20) Social History Housing: Apartment Alcohol intake: unknown Patient Tobacco Use Status: Never used Tobacco Use of substances other than those prescribed or required for medical reasons: No Advance Directives: No Advance Directives Information Provided: No service: No Current occupational status: disabled Meds Allergies Allergy/AdvReac Type Severity Reaction Status Date / Time piperacillin [From ZOSYN] Allergy Intermediate REDNESS/WARMTH Verified 02/15/21 10:33 TO IV SITE. tazobactam [From ZOSYN] Allergy Intermediate REDNESS/WARMTH Verified 02/15/21 10:33 TO IV SITE. ibuprofen Allergy Unknown Unknown Verified 02/15/21 10:33 lamotrigine [Lamictal] Allergy Unknown Unknown Verified 02/15/21 10:33 Anti-Inflammatory Enzyme Allergy Unknown rash on Uncoded 02/15/21 10:33 both legs Active Medications: Current Medications Pharmacy Consult (Consult Rx Perform Med Rec) 1 each MISCELLANE ONCE PRN PRN Reason: Consult order Pharmacy Consult (Consult Rx Perform Med Rec) 1 each MISCELLANE ONCE PRN PRN Reason: Consult order Home Medications Medication Instructions Recorded Confirmed Last Taken Type oxycodone 20 mg tablet 1 tab PO BID-TID PRN 04/10/21 04/10/21 04/08/21 History Physical Exam Vital Signs and Narrative: Vital Signs: Last Vital Signs Temp 98.7 F 04/10/21 10:26 Pulse 94 04/10/21 11:58 Resp 19 04/10/21 11:58 BP 147/84 H 04/10/21 11:58 Pulse Ox 95 04/10/21 11:58 Body Mass Index 31.4 Appearing in no acute distress head is normocephalic atraumatic eyes pupils are PERRLA sclera is anicteric mouth throat mucous membranes are intact and moist neck is supple no lymphadenopathy, no JVD noted lung sounds are clear to auscultation heart regular rate rhythm, clear S1, S2 positive bowel sounds, abdomen is soft, nontender neuro patient is alert x3, no focal deficits Results Labs CBC and Chem 7: 04/10/21 10:57 04/10/21 10:57 Labs: Laboratory Results - last 24 hr 04/10/21 04/10/21 04/10/21 10:57 10:57 11:42 MCV 85.5 MCH 26.6 L MCHC 31.1 RDW 15.2 Plt Count 227 D MPV 11.1 Immature Gran % (Auto) 0.8 H Neut % (Auto) 68.3 Lymph % (Auto) 18.9 L [place] % (Auto) 8.3 Eos % (Auto) 3.3 Baso % (Auto) 0.4 Lymph # (Auto) 1.7 [place] # (Auto) 0.8 Eos # (Auto) 0.3 Baso # (Auto) 0.0 Abs Immat Gran (auto) 0.07 H Absolute Neuts (auto) 6.3 Absolute Nucleated RBC 0.000 Nucleated RBC % (auto) 0.0 Anion Gap 15 Estim Creat Clear Calc 34.8 Estimated GFR 30 Random Glucose 82 Calcium 9.3 D Total Bilirubin 1.5 H Direct Bilirubin 0.4 AST 15 ALT 18 Alkaline Phosphatase 80 Total Protein 6.9 Albumin 4.3 Lipase 19 Urine Color YELLOW Urine Appearance CLOUDY Urine pH 6.0 Ur Specific [place] 1.020 Urine Protein 2+ H Urine Glucose (UA) NEG Urine Ketones NEG Urine Blood 3+ H Urine Nitrite NEG Ur Leukocyte Esterase 1+ H Urine RBC 76-150 H Urine WBC 5-9 H Ur Squamous Epith Cells 1+ Urine Bacteria TRACE Urine Mucus TRACE Assessment and Plan (1) Acute kidney injury: Status: Acute 71 year old man with hx of Nephroureterectomy with bladder cuff on 11/29/2020 with 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 He reports a long history of bladder cancer diagnosed in 2010 ZINA No residual on bladder scan History of bladder cancer, no urinary symptoms IV fluids Urology consultation as patient reported that he is looking for a new urologist and would like a 2nd opinion Possible urinary tract infection Will treat empirically Follow cultures Recent Klebsiella urine culture on 02/24 Flank pain Will obtain renal ultrasound Bladder carcinoma Will consult Oncology, patient looking for a 2nd opinion Interested in treatment options He also reported prostate cancer however no documentation of this, add PSA Normocytic Anemia. No overt bleeding Follow CBC DVT prophylaxis with heparin Attending Dr. Mendoza Full code Quality Stroke Does the patient have a stroke diagnosis?: No VTE Prior VTE?: No VTE Risk Level:: Medical - moderate - high VTE Device Contraindication: Treatment Not Indicated VTE Drug Contraindication: N/A - Med Ordered
--- NOTE | 2021-04-10 14:51 | PHA.MEDREC ---
Pharmacy Consult ? Medication Reconciliation Pharmacy has completed the medication reconciliation. Patient has a prescription for atenolol but does not take it. Calli Starr, PharmD
[2021-04-10 14:56] LABS: COVID-19 Test Negative (Negative)
--- NOTE | 2021-04-10 16:32 | PC.NURSE ---
Attempted to hang maintenance fluids, but pt is refusing at this time. pt states his body cant handle that amount of fluid and he does not drink that much water. Pt explained the need for continous IV fluids, but he continues to refuse. Pt has a bed [facility]. Attempted to call report but nurse is at lunch.
[2021-04-10] MEDS: HYDROmorphone HCl 0.5 MG/0.5 ML SYRINGE IVPUSH ×2 (17:32→22:23)
[2021-04-10] MEDS: ALPRAZolam 0.5 MG TABLET PO (18:08)
[2021-04-10] MEDS: amLODIPine Besylate 2.5 MG TABLET PO (18:08)
[2021-04-10] MEDS: Lactated Ringers 1,000 ML 100 ML IVCONT (18:20)
--- NOTE | 2021-04-10 18:34 | PC.NURSE ---
Pt currently refusing Indwelling Molina catheter insertion. Patient educated on need for Molina and continued to refuse. Dr. Mendoza made aware. Will make oncoming nurse landa.
[2021-04-10] MEDS: Acetaminophen 325 MG TABLET 650 MG PO (20:47)
[2021-04-11] VITALS (8 sets, daily range): BP systolic 114–165; BP diastolic 54–82; PULSE 65–86; RESP 18–20; TEMP 36.3–36.9; O2SAT 94–96
[2021-04-11] MEDS: Heparin Sodium,Porcine 5,000 UNIT/ML VIAL 5000 UNIT SUBCUT ×2 (02:50→16:15)
[2021-04-11] MEDS: Lactated Ringers 1,000 ML 100 ML IVCONT ×3 (02:53→23:00)
[2021-04-11] MEDS: HYDROmorphone HCl 0.5 MG/0.5 ML SYRINGE IVPUSH ×3 (04:12→16:15)
[2021-04-11 06:18] LABS: MANUAL DIFF FLAG NO
[2021-04-11 06:29] LABS: Basophils Percent Auto 0.7 % (0-2); Eosinophils Absolute Auto 0.4 X10*3/uL (0.0-0.4); Eosinophils Percent Auto 6.1 % (0-4); Hematocrit 36.9 % (42-52); Hemoglobin 11.4 g/dl (14.0-18.0); Imm Gran Abs Auto 0.04 X10*3/uL (0.00-0.03); Imm Gran Pct Auto 0.7 % (0.0-0.4); Lymphocytes Absolute Auto 1.6 X10*3/uL (1.2-4.9); Lymphocytes Percent Auto 27.1 % (20-40); Mean Corpuscular HGB Conc 30.9 g/dl (31.0-36.0); Mean Corpuscular Hemoglobin 26.8 pg (27.0-33.0); Mean Corpuscular Volume 86.8 fL (80-98); Mean Platelet Volume 11.6 fL (9.4-12.4); Monocytes Absolute Auto 0.5 X10*3/uL (0.1-1.2); Monocytes Percent Auto 8.6 % (2-11); Neutrophils Absolute Auto 3.2 X10*3/uL (2.0-8.3); Neutrophils Percent Auto 56.8 % (45-73); Platelet Count 173 X10*3/uL (160-400); Red Blood Count 4.25 X10*6/uL (4.60-5.80); Red Cell Distribution Width 15.1 % (11.0-16.0); White Blood Count 5.7 X10*3/uL (4.8-10.8)
[2021-04-11 06:48] LABS: Anion Gap 10 (12-20); Blood Urea Nitrogen 19 mg/dL (9-16); Calcium 8.8 mg/dL (8.4-10.2); Carbon Dioxide 24 mmol/L (22-29); Chloride 112 mmol/L (96-108); Creatinine Clr Calc Pharmacy 42.5; Estimated Glomerular Filt Rate 37; Glucose Random 104 mg/dL (60-115); Potassium 4.1 mmol/L (3.3-5.1); Sodium 142 mmol/L (135-145)
[2021-04-11 07:12] LABS: Prostate Specific Antigen 2.58 ng/mL (<0.05-4.0)
[2021-04-11] MEDS: polyethylene glycoL 3350 17 GM POWD.PACK PO (08:18)
[2021-04-11] MEDS: amLODIPine Besylate 2.5 MG TABLET PO (08:18)
[2021-04-11] MEDS: 0.9 % Sodium Chloride Flush 3 ML SYRINGE IVFLUSH ×2 (08:19→16:16)
--- NOTE | 2021-04-11 09:22 | MHC.CM.PN ---
CM met with Patient at bedside and addressed IMM with him, providing him with the original and placing a copy on the chart. Patient lives alone in an apartment and has both a cane and a walker to assist with mobility. Home with new VNA is the goal for dc and CM has initiated and will follow for dc planning. Patient's Son/Cj is the HCP anf Dr. Nelson Pineda is the PCP.
[2021-04-11] MEDS: oxyCODONE HCl Immed Release 5 MG TABLET 20 MG PO ×2 (12:27→20:03)
--- NOTE | 2021-04-11 15:04 | MHC.CLN ---
Addendum entered by Rut Jeff, MELISSA 04/12/21 11:31: AGREE WITH PROVIDER'S ASSESSMENT BELOW Original Note: REGARDING 34 POUND WT LOSS REPORTED ON ADMISSION ASSESSMENT NO EVIDENCE OF WT LOSS PT HAD 13 POUND WT GAIN (10/19/20: 199.5 POUNDS, 04/11/21: 213 POUNDS)
--- NOTE | 2021-04-11 16:03 | PM.IMPN ---
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 He reports a long history of bladder cancer diagnosed in 2010 ZINA. improving No residual on bladder scan History of bladder cancer, no urinary symptoms IV fluids Urology consultation as patient reported that he is looking for a new urologist and would like a 2nd opinion Possible urinary tract infection No growth on urine cx Recent Klebsiella urine culture on 02/24 Flank pain Will obtain renal ultrasound-negative for acute abnormality Bladder carcinoma Will consult Oncology, patient looking for a 2nd opinion Interested in treatment options He also reported prostate cancer however no documentation of this, add PSA Normocytic Anemia.? No overt bleeding Follow CBC DVT prophylaxis with heparin Attending Dr. Ma Full code Subjective Subjective Date of Service: 04/11/21 Review of Systems Follow up ZINA, flank pain Pain is better today OOB to chair Physical Exam Vital Signs: Vital Signs: Last Vital Signs Temp 97.3 F 04/11/21 15:03 Pulse 71 04/11/21 15:03 Resp 20 04/11/21 15:03 BP 148/77 H 04/11/21 15:03 Pulse Ox 96 04/11/21 15:03 Body Mass Index 32.4 Appearing in no acute distress lung sounds are clear to auscultation heart regular rate rhythm, clear S1, S2 positive bowel sounds, abdomen is soft, nontender neuro patient is alert x3, no focal deficits Objective Data Current Medications Acetaminophen (Acetaminophen 325 Mg Tablet) 650 mg PO Q6H PRN PRN Reason: Pain, Mild (Pain Scale 1-3) Last Admin: 04/10/21 20:47 Dose: 650 mg Documented by: Amlodipine Besylate (Amlodipine Besylate 2.5 Mg Tablet) 2.5 mg PO DAILY [facility]; Protocol Last Admin: 04/11/21 08:18 Dose: 2.5 mg Documented by: Docusate Sodium (Docusate Sodium 100 Mg Capsule) 100 mg PO BEDTIME BALA Last Admin: 04/10/21 21:06 Dose: Not Given Documented by: Heparin Sodium (Porcine) (Heparin Sodium,Porcine 5,000 Unit/Ml Vial) 5,000 unit SUBCUT Q12H [facility] Last Admin: 04/11/21 02:50 Dose: 5,000 unit Documented by: Hydromorphone HCl (Hydromorphone Hcl 0.5 Mg/0.5 Ml Syringe) 0.5 mg IVPUSH Q4H PRN; Protocol PRN Reason: pain Last Admin: 04/11/21 08:18 Dose: 0.5 mg Documented by: Lactated Ringer's (Lr) 1,000 mls @ 100 mls/hr IVCONT .Q10H [facility] Last Admin: 04/11/21 12:28 Dose: 100 mls/hr Documented by: Ondansetron HCl (Ondansetron Hcl 4 Mg/2 Ml Vial) 4 mg IVPUSH Q8H PRN PRN Reason: Nausea and Vomiting Last Admin: 04/10/21 20:47 Dose: 4 mg Documented by: Oxycodone HCl (Oxycodone Hcl Immed Release 5 Mg Tablet) 20 mg PO TID PRN PRN Reason: severe pain Last Admin: 04/11/21 12:27 Dose: 20 mg Documented by: Pharmacy Consult (Consult Rx Perform Med Rec) 1 each MISCELLANE ONCE PRN PRN Reason: Consult order Polyethylene Glycol (Polyethylene Glycol 3350 17 Gm Powd.Pack) 17 gm PO DAILY [facility] Last Admin: 04/11/21 08:18 Dose: 17 gm Documented by: Sodium Chloride (0.9 % Sodium Chloride Flush 3 Ml Syringe) 3 ml IVFLUSH QSHIFT [facility] Last Admin: 04/11/21 08:19 Dose: 3 ml Documented by: Zolpidem Tartrate (Zolpidem Tartrate 5 Mg Tablet) 10 mg PO BEDTIME PRN PRN Reason: insomnia Labs CBC & Chem 7: 04/11/21 05:55 04/11/21 05:55 Labs: Laboratory Results - last 24 hr 04/11/21 04/11/21 05:55 05:55 MCV 86.8 MCH 26.8 L MCHC 30.9 L RDW 15.1 Plt Count 173 MPV 11.6 Immature Gran % (Auto) 0.7 H Neut % (Auto) 56.8 Lymph % (Auto) 27.1 [place] % (Auto) 8.6 Eos % (Auto) 6.1 H Baso % (Auto) 0.7 Lymph # (Auto) 1.6 [place] # (Auto) 0.5 Eos # (Auto) 0.4 Baso # (Auto) 0.0 Abs Immat Gran (auto) 0.04 H Absolute Neuts (auto) 3.2 Absolute Nucleated RBC 0.000 Nucleated RBC % (auto) 0.0 Anion Gap 10 L Estim Creat Clear Calc 42.5 Estimated GFR 37 Random Glucose 104 Calcium 8.8 Prostate Specific Ag 2.58 Microbiology Microbiology Results: Microbiology 04/10/21 Unknown Urine clean catch - Urine staples top Urine Culture - Final No growth. Quality Stroke Does the patient have a stroke diagnosis?: No VTE Prior VTE?: No VTE Risk Level:: Medical - moderate - high VTE Device Contraindication: Treatment Not Indicated VTE Drug Contraindication: N/A - Med Ordered
[2021-04-11] MEDS: Docusate Sodium 100 MG CAPSULE PO (19:54)
[2021-04-11] MEDS: Zolpidem Tartrate 5 MG TABLET 10 MG PO (19:55)
[2021-04-12 04:00] VITALS: BP 166/70; PULSE 56; RESP 18; TEMP 36.4; O2SAT 95
[2021-04-12] MEDS: Heparin Sodium,Porcine 5,000 UNIT/ML VIAL 5000 UNIT SUBCUT (04:10)
[2021-04-12 07:11] LABS: Anion Gap 11 (12-20); Blood Urea Nitrogen 22 mg/dL (9-16); Carbon Dioxide 28 mmol/L (22-29); Chloride 107 mmol/L (96-108); Creatinine Clr Calc Pharmacy 42.1; Estimated Glomerular Filt Rate 37; Glucose Random 92 mg/dL (60-115); Potassium 4.5 mmol/L (3.3-5.1); Sodium 141 mmol/L (135-145)
[2021-04-12 07:33] LABS: Calcium 8.8 mg/dL (8.4-10.2)
[2021-04-12 08:00] VITALS: BP 154/81; PULSE 77; RESP 18; TEMP 36.4; O2SAT 96
[2021-04-12] MEDS: oxyCODONE HCl Immed Release 5 MG TABLET 20 MG PO (08:07)
--- NOTE | 2021-04-12 09:51 | P.DS_ITS ---
DS: Providers Provider Date of Service: 04/12/21 Date of admission: 04/10/21 14:58 Primary care physician: Nelson Pineda MD Consults: 04/10/21 14:58 Consult to Urology Routine Consulting Provider: Ravi Pritchard Reason for consultation: bladder ca, wants second opinion, new urologist Has provider been notified: No 04/10/21 17:24 Consult to Nephrology Routine Consulting Provider: Yuriy Gandara Reason for consultation: zina ? 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 He has a history of cancer of the left renal pelvis and ureter as well as bladder cancer that he was diagnosed with in 2010 and has undergone several ureteral procedures. He stated that he was also diagnosed with prostate cancer however, there is no documentation of that.? His vital signs are stable although his blood pressure is noted to be elevated. HIs creatitine is elevated at 2.19. last creat of 1.27 in 10/2020. Urinalysis mildly positive with hx of kleibsiella. Bladder scan showed 60ml post void. He did report poor appetite and some nausea. No chest pain, sob, vomiting, diarrhea, bloody stool or urine.? he was given a Liter of? IV fluid.? He will be admitted for further management and treatment of ZINA, nausea and generalized pain ZINA. gradually improved History of bladder cancer, no urinary symptoms treated with IV fluids new baseline slightly higher now with solitary kidney (nephrectomy) Bladder carcinoma. no treatment inpatient. he waited by urologist with recommendation to follow-up with [facility] for referral to Radiation Time Spent with Patient Time attestation: Total time spent providing and/or coordinating discharge services: Discharge coordination time: Greater than 30 minutes Quality: Stroke Does the patient have a stroke diagnosis?: No Physical Exam Vital Signs: Vital Signs: Last Vital Signs Temp 97.5 F 04/12/21 08:00 Pulse 77 04/12/21 08:00 Resp 18 04/12/21 08:00 BP 154/81 H 04/12/21 08:00 Pulse Ox 96 04/12/21 08:00 Body Mass Index 32.4 Appearing in no acute distress head is normocephalic atraumatic eyes pupils are PERRLA sclera is anicteric mouth throat mucous membranes are intact and moist neck is supple no lymphadenopathy, no JVD noted lung sounds are clear to auscultation heart regular rate rhythm, clear S1, S2 positive bowel sounds, abdomen is soft, nontender neuro patient is alert x3, no focal deficits DS: Data Data Completed and Pending Labs on day of discharge: Laboratory Results - last 24 hr 04/12/21 06:09 Sodium 141 Potassium 4.5 Chloride 107 Carbon Dioxide 28 Anion Gap 11 L BUN 22 H Creatinine 1.84 H Estim Creat Clear Calc 42.1 Estimated GFR 37 Random Glucose 92 Calcium 8.8 Discharge Plan Discharge Anticipated Discharge Date/Time: 04/12/21 09:40 Patient Disposition: Home, Self-Care Discharge Diagnosis: ZINA Flank pain Referrals: Nelson Pineda MD [Primary Care Provider] - 1 Week Thomas Mena MD [Physician] - 1 Week ( needs referral to [facility] radiation oncology) Discharge Medications: Continued albuterol sulfate [Ventolin HFA] 90 mcg/actuation HFA aerosol inhaler 2 puff inhalation Q4H PRN (Reason: bronchospasm) Qty: 18 RF: 11 zolpidem 10 mg tablet 10 mg PO BEDTIME PRN (Reason: insomnia) 30 Days Qty: 30 RF: 1 ibuprofen 600 mg tablet 600 mg PO Q6H PRN (Reason: for fever) Qty: 120 RF: 0 oxycodone 20 mg tablet 1 tab PO BID-TID PRN (Reason: severe pain) RF: 0 No Action amlodipine 5 mg tablet 5 mg PO DAILY Qty: 90 RF: 0 Discharge Orders: Discharge Order (Routine); Ordered 04/12/21 Ordered By: Marisela Thomas Diet: advance to usual diet Activity on Discharge: As tolerated Stand Alone Forms: Patient Portal Discharge page Care Plan Goals: Follow up with urology service as outpatient Health Concerns: ZINA Flank pain Plan of Treatment: You were seen by Dr. Pritchard, urologist, with recommendation to follow-up with [facility] for referral to [facility] radiation oncology Assessment: See discharge summary Discharge Date/Time: 04/12/21 12:20
[2021-04-12 10:22] VITALS: BP 154/81; PULSE 77
[2021-04-12] MEDS: polyethylene glycoL 3350 17 GM POWD.PACK PO (10:22)
[2021-04-12] MEDS: amLODIPine Besylate 5 MG TABLET PO (10:22)
--- NOTE | 2021-04-12 10:36 | P.PNNP_ITS ---
Subjective Subjective Date of Service: 04/12/21 Principal diagnosis: CKD Interval history: Seen and examined, events noted Physical Exam Vital Signs: Vital Signs: Last Vital Signs Temp 97.5 F 04/12/21 08:00 Pulse 77 04/12/21 10:22 Resp 18 04/12/21 08:00 BP 154/81 H 04/12/21 10:22 Pulse Ox 96 04/12/21 08:00 Body Mass Index 32.4 Resp: Effort & Inspection: normal respiratory effort Auscultation: clear to auscultation bilaterally Cardio: Jugular venous distension: no JVD Neuro: Sensory Exam: No Sensory deficit (Neuro) Objective Data Labs CBC & Chem 7: 04/11/21 05:55 04/12/21 06:09 Labs: Laboratory Results - last 24 hr 04/12/21 06:09 Sodium 141 Potassium 4.5 Chloride 107 Carbon Dioxide 28 Anion Gap 11 L BUN 22 H Creatinine 1.84 H Estim Creat Clear Calc 42.1 Estimated GFR 37 Random Glucose 92 Calcium 8.8 Microbiology Microbiology Results: Microbiology 04/10/21 Unknown Urine clean catch - Urine staples top Urine Culture - Final No growth. 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 He reports a long history of bladder cancer diagnosed in 2010 1. ZINA: suspect at close to bsl func in a solitary func kidney 2. CKD 3: multifact including prior Nephrectomy and solitary func kidney 3. Bladder Ca recurrence and being eval for Urol Tx options REC: cont to track renal func; need to adjust chemo based on GFR Will arrange f/u with me as outpt re CKD management Time Spent With Patient Time: Total time spent is greater than 50% in coordination of care (as docu mented) at patient's floor/unit and/or counseling patient: Progress Note: Quality Stroke Does the patient have a stroke diagnosis?: No
--- NOTE | 2021-04-12 11:27 | MHC.CM.PN ---
Patient has been medically cleared for dc to home today, no services. Last IMM addressed yesterday. Patient will transport via [facility], per his request.
--- NOTE | 2021-04-12 12:04 | MHC.CM.PN ---
CM tried multiple times to reach the shuttle staff at [phone] with no luck. Per RN, Patient VERY eager to leave, CM provided patient with a taxi voucher.
== END 2021-04-12 12:20 | disposition home or self-care (01) | DRG 684 ==
LOC: HO.ED 13:08 → HO.EDOVER 15:32 → HO.IMC 16:29
PROVIDERS: Admitting Provider Nurse Practitioner Acute Care; Emergency Provider Emergency Medicine; PCP Internal Medicine; Visit Provider Nurse Practitioner Acute Care
DX: N17.9 Acute kidney failure, unspecified (principal); R10.9 Unspecified abdominal pain; C67.9 Malignant neoplasm of bladder, unspecified; N18.30 Chronic kidney disease, stage 3 unspecified; D63.1 Anemia in chronic kidney disease; Z90.5 Acquired absence of kidney; Z20.822 Contact with and (suspected) exposure to COVID-19; Z79.1 Long term (current) use of non-steroidal anti-inflammatories (NSAID); Z79.899 Other long term (current) drug therapy
CPT/HCPCS: 36415; 76700; 80048; 80076; 81001; 83690; 84153; 85025; 87086; 87635; 96361; 96374; 99285; J1170; J2405

== ENCOUNTER 2021-05-18 14:34 | Emergency (ER) | payer MEDICARE, MEDICAID, SELFPAY | END 2021-05-18 16:33 | disposition left against medical advice (07) | PROVIDERS: Emergency Provider Emergency Medicine | DX: M79.10 Myalgia, unspecified site (principal); C64.2 Malignant neoplasm of left kidney, except renal pelvis; E11.22 Type 2 diabetes mellitus with diabetic chronic kidney disease; I12.9 Hypertensive chronic kidney disease with stage 1 through stage 4 chronic kidney disease, or unspecified chronic kidney disease; N18.30 Chronic kidney disease, stage 3 unspecified; D63.1 Anemia in chronic kidney disease; E78.00 Pure hypercholesterolemia, unspecified ==

== ENCOUNTER 2021-05-19 00:36 | Inpatient (IN) | payer MEDICARE, MEDICAID, SELFPAY ==
[2021-05-19] VITALS (24 sets, daily range): BP systolic 132–243; BP diastolic 66–117; PULSE 82–97; RESP 15–30; TEMP 36.7–37.3; O2SAT 94–98; BMI 35.3
--- NOTE | 2021-05-19 | ECG_ITS ---
Test Reason : HYPERTENSION Blood Pressure : / mmHG Vent. Rate : 088 BPM Atrial Rate : 088 BPM P-R Int : 174 ms QRS Dur : 100 ms QT Int : 384 ms P-R-T Axes : -23 -26 -18 degrees QTc Int : 464 ms Normal sinus rhythm Minimal voltage criteria for LVH, may be normal variant ( R in aVL ) Left anterior fascicular block Abnormal ECG When compared with ECG of 14-NOV-2020 09:59, No significant change was found QRS Shifted left Referred By: Generic ED Physician Electronically Signed By:SHY TOLEDO MD
--- NOTE | ~2021-05-19 | CT_ITS ---
EXAMINATION: CT ABDOMEN AND PELVIS WITHOUT CONTRAST CLINICAL INFORMATION: Bladder cancer, hematuria and pain COMPARISON: 01/28/2020 TECHNIQUE: Multidetector volumetric imaging was performed from the superior aspect of the liver through the pubic symphysis. Sagittal and coronal reformatted images were obtained on the technologist's workstation. This CT examination was performed using dose optimization techniques as appropriate, variously including the following: *Automated exposure control *Adjustment of mA and/or kV according to patient size (this includes techniques or standardized protocols for targeted exams where dose is matched to indication/reason for exam; i.e. extremities or head) *Use of iterative reconstruction technique DLP: 818 mGy-cm FINDINGS: LUNG BASES: Regions of opacity in the basilar right middle and lower lobes are favored to reflect atelectasis. Coronary artery calcifications are present. LIVER, GALLBLADDER, AND BILIARY TREE: The liver is normal in size, shape, and attenuation. No focal hepatic lesion or biliary ductal dilatation is present. The gallbladder is unremarkable with no evidence of radiopaque gallstones, gallbladder wall thickening, or obvious pericholecystic inflammatory changes. PANCREAS: Unremarkable. SPLEEN: Mildly enlarged, measuring approximately 14 cm in length. ADRENAL GLANDS: Unremarkable. KIDNEYS AND URETERS: Status post left nephrectomy. There is moderate right hydroureteronephrosis with no obstructing calculus seen. Right-sided perinephric stranding noted. BLADDER: Collapsed with a Molina catheter in place. GASTROINTESTINAL TRACT: Colonic diverticulosis is noted. The small and large bowel are otherwise unremarkable without evidence of obstruction or pericolonic inflammatory change. Appendix appears nondilated. No free fluid or free air is seen. ABDOMINAL WALL: Small fat-containing left inguinal hernia noted. LYMPH NODES: Normal. VASCULAR: Scattered atherosclerotic calcifications are present. PELVIC VISCERA: Unremarkable. OSSEOUS STRUCTURES: Degenerative changes are noted in the spine. Bilateral L5 pars defects are noted. CT/CT abdomen pelvis wo con IMPRESSION: 1. Moderate right hydroureteronephrosis, suspicious for obstruction in the region of the ureterovesicular junction, which could be malignant in nature or secondary to blood clot in the setting of hematuria. No obstructing calculus seen. Bladder is collapsed with a Molina catheter and not well evaluated. 2. Status post left nephrectomy. 3. Coronary artery calcifications. Correlation with cardiac risk factors is recommended. This critical result was discussed with Dr. Booth on 05/19/2021 7:06 AM, and it was ascertained that the content and urgency of the report was understood at the time of direct communication.
--- NOTE | ~2021-05-19 | FL_ITS ---
EXAMINATION: XR FLUOROSCOPY WITH IMAGES CLINICAL INFORMATION: Urinary tract calculus COMPARISON: CT abdomen and pelvis 05/19/2021 TECHNIQUE: Fluoroscopy performed by Dr. Ravi Pritchard. Fluoroscopy time: 1.46 minutes Cumulative dose: 50.47 mGy Images: 2 FINDINGS: There is contrast right renal collecting system with hydronephrosis similar to recent CT. There is catheter right urinary tract and local in the collecting system. No extravasation of contrast. FL/FL guidance in OR IMPRESSION: Fluoroscopy for neurologic procedure.
[2021-05-19 03:59] LABS: MANUAL DIFF FLAG NO
[2021-05-19 04:01] LABS: Basophils Percent Auto 0.2 % (0-2); Eosinophils Absolute Auto 0.1 X10*3/uL (0.0-0.4); Eosinophils Percent Auto 0.9 % (0-4); Hematocrit 37.7 % (42.0-52.0); Hemoglobin 11.7 g/dl (14.0-18.0); Imm Gran Abs Auto 0.07 X10*3/uL (0.00-0.03); Imm Gran Pct Auto 0.6 % (0.0-0.4); Lymphocytes Absolute Auto 0.7 X10*3/uL (1.2-4.9); Mean Corpuscular Hemoglobin 27.5 pg (27.0-33.0); Mean Corpuscular Volume 88.5 fL (80.0-98.0); Mean Platelet Volume 10.8 fL (9.4-12.4); Monocytes Absolute Auto 0.7 X10*3/uL (0.1-1.2); Monocytes Percent Auto 5.6 % (2-11); Neutrophils Percent Auto 86.7 % (45-73); Platelet Count 179 X10*3/uL (160-400); Red Blood Count 4.26 X10*6/uL (4.60-5.80); Red Cell Distribution Width 15.6 % (11.0-16.0); White Blood Count 11.5 X10*3/uL (4.8-10.8)
--- NOTE | 2021-05-19 04:01 | ED.ABDPAIN ---
HPI - Abdominal Pain General Chief Complaint: Abdominal Pain <Richie Booth MD - Last Filed: 05/19/21 07:34> Stated Complaint: ABD PAIN/N/V <Richie Booth MD - Last Filed: 05/19/21 07:34> Time Seen by Provider: 05/19/21 04:01 <Richie Booth MD - Last Filed: 05/19/21 07:34> Source: patient <Richie Booth MD - Last Filed: 05/19/21 07:34> Mode of arrival: ambulatory <Richie Booth MD - Last Filed: 05/19/21 07:34> Limitations: no limitations <Richie Booth MD - Last Filed: 05/19/21 07:34> History of Present Illness HPI narrative: patient with low abdominal pain, started urinating blood yesterday, denies fever or chills, patient has had this happen to him before. patient with prior urinary retention and needed a graves. He only has one kidney and now has bladder cancer. <Richie Booth MD - Last Filed: 05/19/21 07:34> MD elicited complaint: abdominal pain <Richie Booth MD - Last Filed: 05/19/21 07:34> Pertinent past history: other (renal cancer, bladder cancer) <Richie Booth MD - Last Filed: 05/19/21 07:34> Onset (ago): hour(s) <Richie Booth MD - Last Filed: 05/19/21 07:34> Pain Consistency: constant <Richie Booth MD - Last Filed: 05/19/21 07:34> Location: suprapubic <Richie Booth MD - Last Filed: 05/19/21 07:34> Severity: severe <Richie Booth MD - Last Filed: 05/19/21 07:34> Quality: cramping <Richie Booth MD - Last Filed: 05/19/21 07:34> Exacerbating factors: nothing <Richie Booth MD - Last Filed: 05/19/21 07:34> Relieving factors: nothing <Richie Booth MD - Last Filed: 05/19/21 07:34> Associated symptoms: hematuria <Richie Booth MD - Last Filed: 05/19/21 07:34> Related Data Home Medications: Home Medications Medication Instructions Recorded Confirmed oxycodone 20 mg tablet 1 tab PO TID PRN 04/10/21 05/19/21 prednisone 10 mg tablet 10 mg PO DAILY tab 05/18/21 05/19/21 acetaminophen 325 mg tablet 650 mg PO Q6H PRN 05/19/21 05/19/21 albuterol sulfate 90 mcg/actuation 2 puff INHALATION Q4H PRN 05/19/21 05/19/21 aerosol inhaler (Ventolin HFA) atenolol 25 mg tablet 1 tab PO DAILY 05/19/21 05/19/21 ferrous sulfate 325 mg (65 mg 1 tab PO BID 05/19/21 05/19/21 iron) tablet Previous Rx's Medication Instructions Recorded ibuprofen 600 mg tablet 600 mg PO Q6H PRN #120 tab 04/30/21 zolpidem 10 mg tablet 10 mg PO BEDTIME PRN 30 Days #30 05/01/21 tab <Richie Booth MD - Last Filed: 05/19/21 07:34> Allergies/Adverse Reactions: Allergies Allergy/AdvReac Type Severity Reaction Status Date / Time piperacillin [From ZOSYN] Allergy Intermediate REDNESS/WARMTH Verified 05/18/21 12:01 TO IV SITE. tazobactam [From ZOSYN] Allergy Intermediate REDNESS/WARMTH Verified 05/18/21 12:01 TO IV SITE. ibuprofen Allergy Unknown Unknown Verified 05/18/21 12:01 lamotrigine [Lamictal] Allergy Unknown Unknown Verified 05/18/21 12:01 Anti-Inflammatory Enzyme Allergy Unknown rash on Uncoded 05/18/21 12:01 both legs <Richie Booth MD - Last Filed: 05/19/21 07:34> Review of Systems Constitutional: Reports no additional constitutional complaints <Richie Booth MD - Last Filed: 05/19/21 07:34> Eyes: Reports no additional eye complaints <Richie Booth MD - Last Filed: 05/19/21 07:34> Denies dizziness <Richie Booth MD - Last Filed: 05/19/21 07:34> Cardiovascular: Reports no additional cardiovascular complaints <Richie Booth MD - Last Filed: 05/19/21 07:34> Respiratory: Reports as per HPI <Richie Booth MD - Last Filed: 05/19/21 07:34> Gastrointestinal: Reports no additional gastrointestinal complaints <Richie Booth MD - Last Filed: 05/19/21 07:34> Musculoskeletal: Reports no additional musculoskeletal complaints <Richie Booth MD - Last Filed: 05/19/21 07:34> Skin/Breast: Denies rash <Richie Booth MD - Last Filed: 05/19/21 07:34> Reports system reviewed and no additional complaints, except as documented, Denies dizziness and Denies Sensory deficit (Neuro) <Richie Booth MD - Last Filed: 05/19/21 07:34> Psychiatric: Denies anxiety <Richie Booth MD - Last Filed: 05/19/21 07:34> Physical Exam Vital Signs: Vital Signs: Last Vital Signs Temp 98.6 F 05/19/21 03:45 Pulse 87 05/19/21 14:22 Resp 20 05/19/21 14:22 BP 198/96 H 05/19/21 14:22 Pulse Ox 95 05/19/21 14:22 Body Mass Index 35.3 <Richie Booth MD - Last Filed: 05/19/21 07:34> Vital Signs: Last Vital Signs Temp 98.6 F 05/19/21 03:45 Pulse 87 05/19/21 14:22 Resp 20 05/19/21 14:22 BP 198/96 H 05/19/21 14:22 Pulse Ox 95 05/19/21 14:22 Body Mass Index 35.3 <Luz Elena Tim DO - Last Filed: 05/19/21 15:44> Const: Other: male in obvious pain <Richie Booth MD - Last Filed: 05/19/21 07:34> Nutritional Appearance: average body habitus <Richie Booth MD - Last Filed: 05/19/21 07:34> Orientation/consciousness: oriented to person and patient oriented x3 <Richie Booth MD - Last Filed: 05/19/21 07:34> Limitations: no limitations <Richie Booth MD - Last Filed: 05/19/21 07:34> HENMT: Head: Yes normal to inspection <Richie Booth MD - Last Filed: 05/19/21 07:34> Ears: external ears normal <Richie Booth MD - Last Filed: 05/19/21 07:34> General nose exam: Normal external nose present <Richie Booth MD - Last Filed: 05/19/21 07:34> Mouth: Normal oral and palatal mucosa present and oropharynx normal <Richie Booth MD - Last Filed: 05/19/21 07:34> Throat: Yes posterior oropharynx normal <Richie Booth MD - Last Filed: 05/19/21 07:34> Eyes: General: appearance normal, both eyes and all related structures <Richie Booth MD - Last Filed: 05/19/21 07:34> Neck: Other: supple <Richie Booth MD - Last Filed: 05/19/21 07:34> Neck: Yes normal visual inspection <Richie Booth MD - Last Filed: 05/19/21 07:34> Chest: Chest palpation & inspection: normal inspection of the chest <Richie Booth MD - Last Filed: 05/19/21 07:34> Resp: Auscultation: clear to auscultation bilaterally <Richie Booth MD - Last Filed: 05/19/21 07:34> Cardio: Jugular venous distension: no JVD <Richie Booth MD - Last Filed: 05/19/21 07:34> Rate: regular rate <Richie Booth MD - Last Filed: 05/19/21 07:34> Rhythm: regular rhythm <Richie Booth MD - Last Filed: 05/19/21 07:34> Heart sounds: S1 normal heart sound present and S2 normal heart sound present <Richie Botoh MD - Last Filed: 05/19/21 07:34> GI: Other: suprapubic tenderness with guarding no rebound <Richie Booth MD - Last Filed: 05/19/21 07:34> : General: Yes no CVA tenderness <Richie Booth MD - Last Filed: 05/19/21 07:34> Back/Spine/Pelvis: Back: no CVA tenderness <Richie Booth MD - Last Filed: 05/19/21 07:34> Skin: General skin exam: no rashes or lesions noted <Richie Booth MD - Last Filed: 05/19/21 07:34> Neuro: General: oriented to person and patient oriented x3 <Richie Booth MD - Last Filed: 05/19/21 07:34> Cranial nerves: Yes CN's II-XII intact bilaterally <Richie Booth MD - Last Filed: 05/19/21 07:34> Motor exam (neuro): 5/5 motor strength present throughout <Richie Booth MD - Last Filed: 05/19/21 07:34> Sensory Exam: No Sensory deficit (Neuro) <Richie Booth MD - Last Filed: 05/19/21 07:34> Extrem: General: Yes normal to inspection <Richie Booth MD - Last Filed: 05/19/21 07:34> Psych: Appearance: grossly normal <Richie Booth MD - Last Filed: 05/19/21 07:34> Course Course Course Narrative: my brief ED course included trying to take care of the patient's BP pending admit to the hospitalists, repeat pain medications, Macho and Dr. Julissa dueñas. downtrending BP at this time, is never normotensive at baseline, Dr. Razo to follow up on admit <Luz Elena Tim DO - Last Filed: 05/19/21 15:44> Reevaluation(s) Reevaluation #1: Patient with slightly elevated WBC, new renal failure, hematuria and pain. Will treat urine for infection, discussed with Dr. Pritchard, will start cerftriaxone, awaiting CT results, admit for UTI and renal failure to the hospitalist <Richie Booth MD - Last Filed: 05/19/21 07:34> Time: 06:51 <Richie Booth MD - Last Filed: 05/19/21 07:34> MDM - Abdominal Pain Lab Data Result diagrams: : 05/19/21 03:54 05/19/21 03:54 <Richie Booth MD - Last Filed: 05/19/21 07:34> Labs: Lab Results 05/19/21 05/19/21 05/19/21 Range/Units 03:54 03:54 03:54 WBC 11.5 H (4.8-10.8) X10*3/uL RBC 4.26 L (4.60-5.80) X10*6/uL Hgb 11.7 L (14.0-18.0) g/dl Hct 37.7 L (42.0-52.0) % MCV 88.5 (80.0-98.0) fL MCH 27.5 (27.0-33.0) pg MCHC 31.0 (31.0-36.0) g/dl RDW 15.6 (11.0-16.0) % Plt Count 179 (160-400) X10*3/uL MPV 10.8 (9.4-12.4) fL Immature Gran % (Auto) 0.6 H (0.0-0.4) % Neut % (Auto) 86.7 H (45-73) % Lymph % (Auto) 6.0 L (20-40) % [place] % (Auto) 5.6 (2-11) % Eos % (Auto) 0.9 (0-4) % Baso % (Auto) 0.2 (0-2) % Lymph # (Auto) 0.7 L (1.2-4.9) X10*3/uL [place] # (Auto) 0.7 (0.1-1.2) X10*3/uL Eos # (Auto) 0.1 (0.0-0.4) X10*3/uL Baso # (Auto) 0.0 (0.0-0.2) X10*3/uL Abs Immat Gran (auto) 0.07 H (0.00-0.03) X10*3/uL Absolute Neuts (auto) 10.0 H (2.0-8.3) x10*3/uL Absolute Nucleated RBC 0.000 (0.0-0.012) X10*3/uL Nucleated RBC % (auto) 0.0 (0.0-0.2) /100WBC Sodium 142 (135-145) mmol/L Potassium 5.9 H D (3.3-5.1) mmol/L Chloride 108 (96-108) mmol/L Carbon Dioxide 25 (22-29) mmol/L Anion Gap 15 (12-20) BUN 33 H (9-16) mg/dL Creatinine 4.60 H* (0.5-1.4) mg/dL Estim Creat Clear Calc 17.0 Estimated GFR 13 Fasting Glucose 127 H (60-99) mg/dL Calcium 8.8 (8.4-10.2) mg/dL Total Bilirubin 1.2 H (0.0-1.0) mg/dL AST 15 (5-37) U/L ALT 17 (0-40) U/L Alkaline Phosphatase 94 (39-117) U/L Total Protein 6.6 (6.5-8.0) g/dL Albumin 4.2 (3.5-5.0) g/dL Urine Color Urine Appearance Urine pH (5.0-8.0) Ur Specific [place] (1.005-1.025) Urine Protein (NEG-TRACE) MG/DL Urine Glucose (UA) (NEG) MG/DL Urine Ketones (NEG) MG/DL Urine Blood (NEG) Urine Nitrite (NEG) Ur Leukocyte Esterase (NEG) Urine RBC (0) /HPF Urine WBC (0-4) /HPF Ur Squamous Epith Cells /LPF Urine Bacteria /LPF Urine Mucus /LPF COVID-19 ([facility]) Negative (Negative) COVID-19 Clin Com See Note 05/19/21 Range/Units 12:58 WBC (4.8-10.8) X10*3/uL RBC (4.60-5.80) X10*6/uL Hgb (14.0-18.0) g/dl Hct (42.0-52.0) % MCV (80.0-98.0) fL MCH (27.0-33.0) pg MCHC (31.0-36.0) g/dl RDW (11.0-16.0) % Plt Count (160-400) X10*3/uL MPV (9.4-12.4) fL Immature Gran % (Auto) (0.0-0.4) % Neut % (Auto) (45-73) % Lymph % (Auto) (20-40) % [place] % (Auto) (2-11) % Eos % (Auto) (0-4) % Baso % (Auto) (0-2) % Lymph # (Auto) (1.2-4.9) X10*3/uL [place] # (Auto) (0.1-1.2) X10*3/uL Eos # (Auto) (0.0-0.4) X10*3/uL Baso # (Auto) (0.0-0.2) X10*3/uL Abs Immat Gran (auto) (0.00-0.03) X10*3/uL Absolute Neuts (auto) (2.0-8.3) x10*3/uL Absolute Nucleated RBC (0.0-0.012) X10*3/uL Nucleated RBC % (auto) (0.0-0.2) /100WBC Sodium (135-145) mmol/L Potassium (3.3-5.1) mmol/L Chloride (96-108) mmol/L Carbon Dioxide (22-29) mmol/L Anion Gap (12-20) BUN (9-16) mg/dL Creatinine (0.5-1.4) mg/dL Estim Creat Clear Calc Estimated GFR Fasting Glucose (60-99) mg/dL Calcium (8.4-10.2) mg/dL Total Bilirubin (0.0-1.0) mg/dL AST (5-37) U/L ALT (0-40) U/L Alkaline Phosphatase (39-117) U/L Total Protein (6.5-8.0) g/dL Albumin (3.5-5.0) g/dL Urine Color RED Urine Appearance TURBID Urine pH 7.0 (5.0-8.0) Ur Specific [place] 1.020 (1.005-1.025) Urine Protein 3+ H (NEG-TRACE) MG/DL Urine Glucose (UA) NEG (NEG) MG/DL Urine Ketones NEG (NEG) MG/DL Urine Blood 3+ H (NEG) Urine Nitrite NEG (NEG) Ur Leukocyte Esterase 2+ H (NEG) Urine RBC TNTC H (0) /HPF Urine WBC 5-9 H (0-4) /HPF Ur Squamous Epith Cells NONE /LPF Urine Bacteria NONE /LPF Urine Mucus TRACE /LPF COVID-19 ([facility]) (Negative) COVID-19 Clin Com <Richie Booth MD - Last Filed: 05/19/21 07:34> Lab Results 05/19/21 05/19/21 05/19/21 Range/Units 03:54 03:54 03:54 WBC 11.5 H (4.8-10.8) X10*3/uL RBC 4.26 L (4.60-5.80) X10*6/uL Hgb 11.7 L (14.0-18.0) g/dl Hct 37.7 L (42.0-52.0) % MCV 88.5 (80.0-98.0) fL MCH 27.5 (27.0-33.0) pg MCHC 31.0 (31.0-36.0) g/dl RDW 15.6 (11.0-16.0) % Plt Count 179 (160-400) X10*3/uL MPV 10.8 (9.4-12.4) fL Immature Gran % (Auto) 0.6 H (0.0-0.4) % Neut % (Auto) 86.7 H (45-73) % Lymph % (Auto) 6.0 L (20-40) % [place] % (Auto) 5.6 (2-11) % Eos % (Auto) 0.9 (0-4) % Baso % (Auto) 0.2 (0-2) % Lymph # (Auto) 0.7 L (1.2-4.9) X10*3/uL [place] # (Auto) 0.7 (0.1-1.2) X10*3/uL Eos # (Auto) 0.1 (0.0-0.4) X10*3/uL Baso # (Auto) 0.0 (0.0-0.2) X10*3/uL Abs Immat Gran (auto) 0.07 H (0.00-0.03) X10*3/uL Absolute Neuts (auto) 10.0 H (2.0-8.3) x10*3/uL Absolute Nucleated RBC 0.000 (0.0-0.012) X10*3/uL Nucleated RBC % (auto) 0.0 (0.0-0.2) /100WBC Sodium 142 (135-145) mmol/L Potassium 5.9 H D (3.3-5.1) mmol/L Chloride 108 (96-108) mmol/L Carbon Dioxide 25 (22-29) mmol/L Anion Gap 15 (12-20) BUN 33 H (9-16) mg/dL Creatinine 4.60 H* (0.5-1.4) mg/dL Estim Creat Clear Calc 17.0 Estimated GFR 13 Fasting Glucose 127 H (60-99) mg/dL Calcium 8.8 (8.4-10.2) mg/dL Total Bilirubin 1.2 H (0.0-1.0) mg/dL AST 15 (5-37) U/L ALT 17 (0-40) U/L Alkaline Phosphatase 94 (39-117) U/L Total Protein 6.6 (6.5-8.0) g/dL Albumin 4.2 (3.5-5.0) g/dL Urine Color Urine Appearance Urine pH (5.0-8.0) Ur Specific [place] (1.005-1.025) Urine Protein (NEG-TRACE) MG/DL Urine Glucose (UA) (NEG) MG/DL Urine Ketones (NEG) MG/DL Urine Blood (NEG) Urine Nitrite (NEG) Ur Leukocyte Esterase (NEG) Urine RBC (0) /HPF Urine WBC (0-4) /HPF Ur Squamous Epith Cells /LPF Urine Bacteria /LPF Urine Mucus /LPF COVID-19 ([facility]) Negative (Negative) COVID-19 Clin Com See Note 05/19/21 Range/Units 12:58 WBC (4.8-10.8) X10*3/uL RBC (4.60-5.80) X10*6/uL Hgb (14.0-18.0) g/dl Hct (42.0-52.0) % MCV (80.0-98.0) fL MCH (27.0-33.0) pg MCHC (31.0-36.0) g/dl RDW (11.0-16.0) % Plt Count (160-400) X10*3/uL MPV (9.4-12.4) fL Immature Gran % (Auto) (0.0-0.4) % Neut % (Auto) (45-73) % Lymph % (Auto) (20-40) % [place] % (Auto) (2-11) % Eos % (Auto) (0-4) % Baso % (Auto) (0-2) % Lymph # (Auto) (1.2-4.9) X10*3/uL [place] # (Auto) (0.1-1.2) X10*3/uL Eos # (Auto) (0.0-0.4) X10*3/uL Baso # (Auto) (0.0-0.2) X10*3/uL Abs Immat Gran (auto) (0.00-0.03) X10*3/uL Absolute Neuts (auto) (2.0-8.3) x10*3/uL Absolute Nucleated RBC (0.0-0.012) X10*3/uL Nucleated RBC % (auto) (0.0-0.2) /100WBC Sodium (135-145) mmol/L Potassium (3.3-5.1) mmol/L Chloride (96-108) mmol/L Carbon Dioxide (22-29) mmol/L Anion Gap (12-20) BUN (9-16) mg/dL Creatinine (0.5-1.4) mg/dL Estim Creat Clear Calc Estimated GFR Fasting Glucose (60-99) mg/dL Calcium (8.4-10.2) mg/dL Total Bilirubin (0.0-1.0) mg/dL AST (5-37) U/L ALT (0-40) U/L Alkaline Phosphatase (39-117) U/L Total Protein (6.5-8.0) g/dL Albumin (3.5-5.0) g/dL Urine Color RED Urine Appearance TURBID Urine pH 7.0 (5.0-8.0) Ur Specific [place] 1.020 (1.005-1.025) Urine Protein 3+ H (NEG-TRACE) MG/DL Urine Glucose (UA) NEG (NEG) MG/DL Urine Ketones NEG (NEG) MG/DL Urine Blood 3+ H (NEG) Urine Nitrite NEG (NEG) Ur Leukocyte Esterase 2+ H (NEG) Urine RBC TNTC H (0) /HPF Urine WBC 5-9 H (0-4) /HPF Ur Squamous Epith Cells NONE /LPF Urine Bacteria NONE /LPF Urine Mucus TRACE /LPF COVID-19 ([facility]) (Negative) COVID-19 Clin Com <Luz Elena TimDO - Last Filed: 05/19/21 15:44> Imaging Data CT scan - abdomen: Radiologist's impression: Moderate right hydronephrosis with question of bladder mass <Richie Booth MD - Last Filed: 05/19/21 07:34> Critical Care Time Critical Care Time Attestation: I spent 40 minutes of critical care, with interventions, assessments, speaking to patient, consultants, and family. <Richie Booth MD - Last Filed: 05/19/21 07:34> Discharge Plan Discharge Clinical Impression: Hypertension, uncontrolled Hematuria Qualifiers: Hematuria type: gross Qualified Code(s): R31.0 - Gross hematuria Acute renal failure Qualifiers: Acute renal failure type: unspecified Qualified Code(s): N17.9 - Acute kidney failure, unspecified Urinary tract infection Qualifiers: Urinary tract infection type: acute cystitis Hematuria presence: with hematuria Qualified Code(s): N30.01 - Acute cystitis with hematuria <Richie Booth MD - Last Filed: 05/19/21 07:34> Patient Disposition: Admitted As Inpatient <Richie Booth MD - Last Filed: 05/19/21 07:34> [facility] Past Medical History Medical History: Medical History Anemia Asthma Benign essential hypertension Bipolar disorder Bladder cancer 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 Chronic kidney disease (CKD), stage III (moderate) Dermatitis Hematuria HLD (hyperlipidemia) HTN (hypertension) Insomnia Lumbar degenerative disc disease Metabolic encephalopathy Obesity (BMI 30-39.9) Pruritic erythematous rash 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 <Richie Booth MD - Last Filed: 05/19/21 07:34> Social History Social History: Social History Household Members: None Housing: Apartment Do you presently have visiting nurse or other home services: No Alcohol intake: unknown Patient Tobacco Use Status: Never used Tobacco Second Hand Smoke Exposure: Yes Use of substances other than those prescribed or required for medical reasons: Unknown Advance Directives: No Advance Directives Information Provided: No service: No Current occupational status: disabled <Richie Booth MD - Last Filed: 05/19/21 07:34>
[2021-05-19] MEDS: Morphine Sulfate 4 MG/ML CARTRIDGE IVPUSH ×2 (04:16→05:37)
[2021-05-19 04:17] LABS: COVID-19 Test Negative (Negative)
[2021-05-19 04:25] LABS: Alanine Aminotransferase 17 U/L (0-40); Albumin Level 4.2 g/dL (3.5-5.0); Alkaline Phosphatase 94 U/L (39-117); Anion Gap 15 (12-20); Aspartate Amino Transferase 15 U/L (5-37); Bilirubin Total 1.2 mg/dL (0.0-1.0); Blood Urea Nitrogen 33 mg/dL (9-16); Calcium 8.8 mg/dL (8.4-10.2); Carbon Dioxide 25 mmol/L (22-29); Chloride 108 mmol/L (96-108); Estimated Glomerular Filt Rate 13; Glucose Fasting 127 mg/dL (60-99); Potassium 5.9 mmol/L (3.3-5.1); Sodium 142 mmol/L (135-145); Total Protein 6.6 g/dL (6.5-8.0)
--- NOTE | 2021-05-19 04:33 | PC.NURSE ---
Pt bladder scanned by RN and tech, unable to detect any urine in bladder. pt states he has not voided all day. Ot states 03/10 at bladder site. Graves catheter placed per MD orders. Pt tolerated well. Red urine noted to come from graves catheter with very minimal urine output at this time, MD aware.
--- NOTE | 2021-05-19 05:24 | PC.NURSE ---
Pt alert and oriented x4, calm and cooperative. Pt extremely jaundice throughout entire body, eyes, and mucous membranes. Pt states eye jaundice started 1 month ago and skin jaundice started 1 week ago. Hx liver failure and cirrhosis. Abdomen slightly distended. Per pt and significant other, rectal bleeding noted all day. Pt states he feels weak and cold. BP negra low, MD Booth aware, fluids running.
[2021-05-19] MEDS: ondansetron HCL 4 MG/2 ML VIAL IVPUSH (05:37)
[2021-05-19] MEDS: 0.9 % Sodium Chloride 1,000 ML 999 ML IVCONT ×2 (05:40→06:26)
[2021-05-19] MEDS: Morphine Sulfate 10 MG/ML CARTRIDGE IVPUSH (07:05)
[2021-05-19] MEDS: HYDROmorphone HCl 2 MG/ML VIAL IVPUSH ×3 (07:45→14:20)
[2021-05-19] MEDS: Labetalol HCL 100 MG/20 ML VIAL 10 MG IVPUSH (07:47)
[2021-05-19] MEDS: cefTRIAXone sodium 1 GM in 0.9 % Sodium Chloride 50 ML IV (07:50)
[2021-05-19] MEDS: Sodium Polystyrene Sulfon/Sorb 15 GM/60 ML ORAL.SUSP 30 GM PO (07:51)
--- NOTE | 2021-05-19 09:06 | PHA.MEDREC ---
Pharmacy Consult ? Medication Reconciliation Pharmacy has completed the medication reconciliation. Patient reports he does not take amlodipine. Calli Starr, PharmD
[2021-05-19] MEDS: Labetalol HCL 100 MG/20 ML VIAL 20 MG IVPUSH (12:55)
[2021-05-19 13:14] LABS: Appearance Urine TURBID; Glucose Urine UA NEG (NEG); Leukocyte Esterase Urine 2+ (NEG); Nitrite Urine NEG (NEG); UACC Culture Trigger YES; Urine Blood 3+ (NEG); Urine Ketones NEG (NEG); Urine Protein 3+ MG/DL (NEG-TRACE)
[2021-05-19 13:15] LABS: Color Urine RED
--- NOTE | 2021-05-19 13:17 | PM.UROCN ---
History of Present Illness Consult details Consult date: 05/19/21 Narrative: Mateus is a pleasant male. He is seen for the following consultation - ZINA with hydronephrosis in the setting with solitary kidney Complicated genitourinary history In short he had bladder cancer superficial many years ago. 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 Underwent a left nephroureterectomy at [facility]. 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 Admitted to ER with general deconditioning and found to have creatinine 4.[address] scan with right hydronephrosis with elevated white count 11.5 Concern regarding distal ureteric obstruction in setting of recurrent bladder cancer Discussion was patient at bedside. Has Molina catheter in that is draining red urine will minimal amounts. Given current laboratories recommend cystoscopy with right stent placement to relieve any potential obstruction. He may require Interventional Radiology in placement of PCN tube if unable to place from below. Review of Systems Constitutional: Constitutional: Denies chills and Denies fever(s) Cardiovascular: Cardiovascular: Reports no additional cardiovascular complaints and Denies syncope Respiratory: Respiratory: Denies cough Gastrointestinal: Gastrointestinal: Denies abdominal pain and Denies heartburn Genitourinary: Genitourinary: Reports as per HPI and Denies change in libido Neurologic: Denies syncope Psychiatric: Psychiatric: Denies change in libido Endocrine: Endocrine: Denies change in libido [facility] Past Medical History Medical History Anemia Asthma Benign essential hypertension Bipolar disorder Bladder cancer 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 Surgical History Surgical History History of bladder surgery History of cystoscopy History of left nephrectomy (~11/29/20) Social History Social History Household Members: None Housing: Apartment Do you presently have visiting nurse or other home services: No Alcohol intake: unknown Patient Tobacco Use Status: Never used Tobacco Second Hand Smoke Exposure: Yes Use of substances other than those prescribed or required for medical reasons: Unknown Advance Directives: No Advance Directives Information Provided: No service: No Current occupational status: disabled Meds Allergies Allergy/AdvReac Type Severity Reaction Status Date / Time piperacillin [From ZOSYN] Allergy Intermediate REDNESS/WARMTH Verified 05/18/21 12:01 TO IV SITE. tazobactam [From ZOSYN] Allergy Intermediate REDNESS/WARMTH Verified 05/18/21 12:01 TO IV SITE. ibuprofen Allergy Unknown Unknown Verified 05/18/21 12:01 lamotrigine [Lamictal] Allergy Unknown Unknown Verified 05/18/21 12:01 Anti-Inflammatory Enzyme Allergy Unknown rash on Uncoded 05/18/21 12:01 both legs Active Medications: Current Medications Pharmacy Consult (Consult Rx Perform Med Rec) 1 each MISCELLANE ONCE PRN PRN Reason: Consult order Home Medications Medication Instructions Recorded Confirmed Last Taken Type oxycodone 20 mg tablet 1 tab PO TID PRN 04/10/21 05/19/21 04/08/21 History prednisone 10 mg tablet 10 mg PO DAILY tab 05/18/21 05/19/21 05/18/21 History acetaminophen 325 mg tablet 650 mg PO Q6H PRN 05/19/21 05/19/21 Unknown History albuterol sulfate 90 mcg/actuation 2 puff INHALATION Q4H PRN 05/19/21 05/19/21 Unknown History aerosol inhaler (Ventolin HFA) atenolol 25 mg tablet 1 tab PO DAILY 05/19/21 05/19/21 05/18/21 History ferrous sulfate 325 mg (65 mg 1 tab PO BID 05/19/21 05/19/21 05/18/21 History iron) tablet Physical Exam Vital Signs: Vital Signs: Last Vital Signs Temp 98.6 F 05/19/21 03:45 Pulse 94 05/19/21 12:54 Resp 16 05/19/21 12:54 BP 227/108 H 05/19/21 12:54 Pulse Ox 95 05/19/21 12:54 Body Mass Index 35.3 Const: General: cooperative, healthy appearing, comfortable and no acute distress Orientation/consciousness: patient oriented x3 HENMT: Face and sinus: Yes normal facial exam Mouth: moist mucous membranes Neck: Neck: Yes normal visual inspection, Yes full ROM and Yes trachea midline Chest: Chest palpation & inspection: normal inspection of the chest Resp: Effort & Inspection: normal respiratory effort, able to speak in complete sentences and no respiratory distress GI: Inspection: Yes normal to inspection Back/Spine/Pelvis: Cervical Spine: normal cervical lordosis Thoracic/Lumbar Spine: thoracic and lumbar spine normal to inspection Skin: General skin exam: no rashes or lesions noted Neuro: General: patient oriented x3, gait normal, tone normal and moves all extremities Extrem: General: Yes normal to inspection and Yes capillary refill normal Results Labs Result diagrams: 05/19/21 03:54 05/19/21 03:54 Labs: Abnormal lab results 05/19/21 05/19/21 05/19/21 Range/Units 03:54 03:54 12:58 WBC 11.5 H (4.8-10.8) X10*3/uL RBC 4.26 L (4.60-5.80) X10*6/uL Hgb 11.7 L (14.0-18.0) g/dl Hct 37.7 L (42.0-52.0) % Immature Gran % (Auto) 0.6 H (0.0-0.4) % Neut % (Auto) 86.7 H (45-73) % Lymph % (Auto) 6.0 L (20-40) % Lymph # (Auto) 0.7 L (1.2-4.9) X10*3/uL Abs Immat Gran (auto) 0.07 H (0.00-0.03) X10*3/uL Absolute Neuts (auto) 10.0 H (2.0-8.3) x10*3/uL Potassium 5.9 H D (3.3-5.1) mmol/L BUN 33 H (9-16) mg/dL Creatinine 4.60 H* (0.5-1.4) mg/dL Fasting Glucose 127 H (60-99) mg/dL Total Bilirubin 1.2 H (0.0-1.0) mg/dL Urine Protein 3+ H (NEG-TRACE) MG/DL Urine Blood 3+ H (NEG) Ur Leukocyte Esterase 2+ H (NEG) Short CBC 05/19/21 Range/Units 03:54 WBC 11.5 H (4.8-10.8) X10*3/uL Hgb 11.7 L (14.0-18.0) g/dl Hct 37.7 L (42.0-52.0) % Plt Count 179 (160-400) X10*3/uL BMP 05/19/21 03:54 Sodium 142 Potassium 5.9 H D Chloride 108 Carbon Dioxide 25 BUN 33 H Creatinine 4.60 H* Calcium 8.8 Liver Function 05/19/21 Range/Units 03:54 Total Bilirubin 1.2 H (0.0-1.0) mg/dL AST 15 (5-37) U/L ALT 17 (0-40) U/L Alkaline Phosphatase 94 (39-117) U/L Albumin 4.2 (3.5-5.0) g/dL Urine 05/19/21 Range/Units 12:58 Urine Color RED Urine Appearance TURBID Urine pH 7.0 (5.0-8.0) Ur Specific [place] 1.020 (1.005-1.025) Urine Protein 3+ H (NEG-TRACE) MG/DL Urine Glucose (UA) NEG (NEG) MG/DL All other labs normal. Assessment and Plan (1) Acute kidney injury: Status: Acute (2) Hydronephrosis: Status: Acute (3) Bladder cancer: Qualifiers: Bladder location: unspecified site Qualified Code(s): C67.9 - Malignant neoplasm of bladder, unspecified Status: Acute Cystoscopy, right retrograde, right stent placement Risks, benefits and alternatives to therapy were discussed. These include but are not limited to infection, bleeding, damage to local organs and tissues, need for further interventions. Anesthetic risks regarding cardiac arrhythmia, blood clots, and potential mortality were discussed. The patient understands the typical recovery time and the outpatient nature of the procedure. After consideration of these risks the patient gives full informed consent and they wish to move ahead with the procedure. Procedures Date of Service Date of Service: 05/19/21
[2021-05-19 13:19] LABS: Mucus Urine TRACE /LPF; RBC Urine TNTC /HPF (0)
[2021-05-19] MEDS: hydrALAZINE HCl 20 MG/ML VIAL 10 MG IVPUSH (14:05)
[2021-05-19] MEDS: atenoloL 25 MG TABLET PO (14:05)
[2021-05-19] MEDS: HYDROmorphone HCl 1 MG/ML SYRINGE IVPUSH (15:41)
[2021-05-19] MEDS: LORazepam 2 MG/ML VIAL 1 MG IVPUSH (15:41)
--- NOTE | 2021-05-19 15:50 | PC.NURSE ---
report given to nicole corea
[2021-05-19 17:40] LABS: Anion Gap 15 (12-20); Blood Urea Nitrogen 41 mg/dL (9-16); Calcium 8.6 mg/dL (8.4-10.2); Carbon Dioxide 23 mmol/L (22-29); Chloride 112 mmol/L (96-108); Creatinine Clr Calc Pharmacy 13.1; Estimated Glomerular Filt Rate 9; Glucose Random 122 mg/dL (60-115); Potassium 6.8 mmol/L (3.3-5.1); Sodium 143 mmol/L (135-145)
--- NOTE | 2021-05-19 18:44 | PM.CCN ---
Critical Care Event Note Summary Date of Service: 05/19/21 Code activated: No Narrative: 71-year-old gentleman with underlying history of urothelial cancer status post prior left nephroureterectomy, underlying bipolar disorder, CKD, obesity, diabetes mellitus being evaluated for right-sided abdominal discomfort, hematuria, and hypertension. Patient has had CT abdomen that demonstrated right-sided hydronephrosis. He also was noted to have an elevated potassium level and significant hypertension. He has been planned for right ureteral stenting. he has received multiple opioids for abdominal pain. On my exam in PACU pre-op, hypertensive SBP 190's, normoxemic on room air, confused, graves with hematuria. Laboratory studies significant for worsening renal function with potassium of 6.8 Patient has essentially obstructive uropathy with hyperkalemia and renal failure. Patient is to undergo right ureteral stenting. Would suggest initiation of Cardene drip and Lokelma 10 g now. Confusion is likely a a combination of acute uremia and secondary to multiple opioid doses. If postop patient has improved urine output with resolution of obstruction, then should be monitored on telemetry, otherwise ICU monitoring would be warranted. Critical Care Time (minutes): 0
--- NOTE | 2021-05-19 19:27 | MHC.SHP ---
Pre-Procedural Eval Section A Date of Service: 05/19/21 The patient is an INPATIENT: Yes Changes since office visit: No Cold of Flu in the past 2 weeks, No New Medical Problems, No Changes in Medication and No Patient answered all questions The History & Physical has been completed within 30 days and I have reviewed it.: Yes Section B Chief Complaint: ABD PAIN/N/V Allergies: Allergies Allergy/AdvReac Type Severity Reaction Status Date / Time piperacillin [From ZOSYN] Allergy Intermediate REDNESS/WARMTH Verified 05/18/21 12:01 TO IV SITE. tazobactam [From ZOSYN] Allergy Intermediate REDNESS/WARMTH Verified 05/18/21 12:01 TO IV SITE. ibuprofen Allergy Unknown Unknown Verified 05/18/21 12:01 lamotrigine [Lamictal] Allergy Unknown Unknown Verified 05/18/21 12:01 Anti-Inflammatory Enzyme Allergy Unknown rash on Uncoded 05/18/21 12:01 both legs Plan Diagnosis/Plan: Unchanged (Cystoscopy, clot evacuation, right retrograde and right stent placement) I have reviewed the history and physical and performed a pertinent physical examination on my patient. No changes have occurred unless specified.
--- NOTE | 2021-05-19 19:30 | P.CONAN_ITS ---
HPI - Anesthesia Eval Consult details Narrative: hydroneprosis PMFSH Active Problems Active Problems: All Active Problems (Updated 05/19/21 @ 15:40 by Luz Elena Tim DO) Hypertension, uncontrolled (Acute) Hydronephrosis (Acute) Acute renal failure (Acute) Urinary tract infection (Acute) Hypertension (Acute) Acute kidney injury (Acute) Dermatitis (Acute) 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 (Acute) Preoperative clearance (Acute) Transitional cell carcinoma of left kidney (Acute) Pruritic erythematous rash (Acute) Anemia (Acute) Allergic contact dermatitis (Acute) Obesity (BMI 30-39.9) (Acute) Insomnia (Acute) Lumbar degenerative disc disease (Acute) Asthma (Acute) Pure hypercholesterolemia (Acute) Type 2 diabetes mellitus with diabetic chronic kidney disease (Acute) Benign essential hypertension (Acute) Chronic kidney disease (CKD), stage III (moderate) (Acute) Hematuria (Acute) Bladder cancer (Acute) Past Medical History Medical History Anemia Asthma Benign essential hypertension Bipolar disorder Bladder cancer 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 Family history of problems with anesthesia: No Surgical History Surgical History History of bladder surgery History of cystoscopy History of left nephrectomy (~11/29/20) History of Problems with Anesthesia: No Social History Social History Household Members: None Housing: Apartment Do you presently have visiting nurse or other home services: No Alcohol intake: unknown Patient Tobacco Use Status: Never used Tobacco Second Hand Smoke Exposure: No Use of substances other than those prescribed or required for medical reasons: No Are you DNR?: No Advance Directives: No Advance Directives Information Provided: No Advance Directives on File: No service: No Current occupational status: disabled Meds Allergies Allergy/AdvReac Type Severity Reaction Status Date / Time piperacillin [From ZOSYN] Allergy Intermediate REDNESS/WARMTH Verified 05/18/21 12:01 TO IV SITE. tazobactam [From ZOSYN] Allergy Intermediate REDNESS/WARMTH Verified 05/18/21 12:01 TO IV SITE. ibuprofen Allergy Unknown Unknown Verified 05/18/21 12:01 lamotrigine [Lamictal] Allergy Unknown Unknown Verified 05/18/21 12:01 Anti-Inflammatory Enzyme Allergy Unknown rash on Uncoded 05/18/21 12:01 both legs Active Medications: Current Medications Pharmacy Consult (Consult Rx Perform Med Rec) 1 each MISCELLANE ONCE PRN PRN Reason: Consult order Home Medications Medication Instructions Recorded Confirmed Last Taken Type oxycodone 20 mg tablet 1 tab PO TID PRN 04/10/21 05/19/21 04/08/21 History prednisone 10 mg tablet 10 mg PO DAILY tab 05/18/21 05/19/21 05/18/21 History acetaminophen 325 mg tablet 650 mg PO Q6H PRN 05/19/21 05/19/21 Unknown History albuterol sulfate 90 mcg/actuation 2 puff INHALATION Q4H PRN 05/19/21 05/19/21 Unknown History aerosol inhaler (Ventolin HFA) atenolol 25 mg tablet 1 tab PO DAILY 05/19/21 05/19/21 05/18/21 History ferrous sulfate 325 mg (65 mg 1 tab PO BID 05/19/21 05/19/21 05/18/21 History iron) tablet Exam Exam Date and Time: May 19, 2021 193 Height,Weight and Vital Signs: Height 5 ft 7 in Weight 102.4 kg Last Vital Signs Temp 98.8 F 05/19/21 16:49 Pulse 97 05/19/21 16:49 Resp 20 05/19/21 16:49 BP 197/94 H 05/19/21 16:49 Pulse Ox 98 05/19/21 16:49 Pertinent Lab Results Pertinent Lab Results: Laboratory Tests 05/19/21 05/19/21 05/19/21 03:54 03:54 03:54 WBC 11.5 H RBC 4.26 L Hgb 11.7 L Hct 37.7 L MCV 88.5 MCH 27.5 MCHC 31.0 RDW 15.6 Plt Count 179 MPV 10.8 Immature Gran % (Auto) 0.6 H Neut % (Auto) 86.7 H Lymph % (Auto) 6.0 L [place] % (Auto) 5.6 Eos % (Auto) 0.9 Baso % (Auto) 0.2 Lymph # (Auto) 0.7 L [place] # (Auto) 0.7 Eos # (Auto) 0.1 Baso # (Auto) 0.0 Abs Immat Gran (auto) 0.07 H Absolute Neuts (auto) 10.0 H Absolute Nucleated RBC 0.000 Nucleated RBC % (auto) 0.0 Sodium 142 Potassium 5.9 H D Chloride 108 Carbon Dioxide 25 Anion Gap 15 BUN 33 H Creatinine 4.60 H* Estim Creat Clear Calc 17.0 Estimated GFR 13 Random Glucose Fasting Glucose 127 H Calcium 8.8 Total Bilirubin 1.2 H AST 15 ALT 17 Alkaline Phosphatase 94 Total Protein 6.6 Albumin 4.2 Urine Color Urine Appearance Urine pH Ur Specific [place] Urine Protein Urine Glucose (UA) Urine Ketones Urine Blood Urine Nitrite Ur Leukocyte Esterase Urine RBC Urine WBC Ur Squamous Epith Cells Urine Bacteria Urine Mucus COVID-19 ([facility]) Negative COVID-19 Clin Com See Note 05/19/21 05/19/21 12:58 17:00 WBC RBC Hgb Hct MCV MCH MCHC RDW Plt Count MPV Immature Gran % (Auto) Neut % (Auto) Lymph % (Auto) [place] % (Auto) Eos % (Auto) Baso % (Auto) Lymph # (Auto) [place] # (Auto) Eos # (Auto) Baso # (Auto) Abs Immat Gran (auto) Absolute Neuts (auto) Absolute Nucleated RBC Nucleated RBC % (auto) Sodium 143 Potassium 6.8 H* Chloride 112 H Carbon Dioxide 23 Anion Gap 15 BUN 41 H Creatinine 5.94 H* Estim Creat Clear Calc 13.1 Estimated GFR 9 Random Glucose 122 H Fasting Glucose Calcium 8.6 Total Bilirubin AST ALT Alkaline Phosphatase Total Protein Albumin Urine Color RED Urine Appearance TURBID Urine pH 7.0 Ur Specific [place] 1.020 Urine Protein 3+ H Urine Glucose (UA) NEG Urine Ketones NEG Urine Blood 3+ H Urine Nitrite NEG Ur Leukocyte Esterase 2+ H Urine RBC TNTC H Urine WBC 5-9 H Ur Squamous Epith Cells NONE Urine Bacteria NONE Urine Mucus TRACE COVID-19 ([facility]) COVID-19 Clin Com Airway Mallampati Class: II TM Dist: >3cm Neck ROM: Full Heart: RRR Lungs: CTA Assessment and Plan Assessment Anesthesia Assessment: Anesthesia Plan Discussed and Chart Reviewed Final Anesthetic Review Family History of Problems with Anesthesia: No History of Problems with Anesthesia: No NPO: Yes ASA Class: IV and Emergency Final Preanesthetic Review: Meds/Allgs Chart Reviewed, Consent Obtained/Reviewed and Anes Risks/Benef Reviewed Patient Risk: High Procedure Risk: Low Anesthetic Plan Anesthetic Plan: GA Disposition: Standard PACU
[2021-05-19 19:45] LABS: Glucose, Whole Blood 118 mg/dL (60-115)
--- NOTE | 2021-05-19 20:48 | W.PM.OPN ---
Operative Note Operative Note Date of Service: 05/19/21 Narrative: PreOperative Diagnosis: Right hydronephrosis Post Operative Diagnosis: Right hydronephrosis secondary to distal ureter tumor Procedure: Cystoscopy, clot evacuation, right retrograde, double stent placement Surgeon: Dr Ravi Pritchard Anesthesia: General Indications for procedure: 71-year-old male with extensive urologic history including recurrent superficial bladder cancer, invasive bladder cancer, left nephro ureterectomy. Presents with creatinine rising over 5 and decreased urine output. Imaging showed right hydroureteronephrosis Procedure: After informed consent was verified the patient was brought to the operating room and placed in a supine position. Anesthesia was administered per protocol. Patient was placed in modified dorsal lithotomy position and prepped and draped in sterile fashion. Safety pause time-out was observed. Antibiotics were held given high creatinine. Cystoscopy was performed. Right ureteric orifice was seen in normal position with bladder cancer exiting from the orifice causing the obstruction. Sensor guidewire was placed. There was a tortuous ureter. After manipulation we were able to advance an open-ended catheter into the renal pelvis. There was post hydronephrotic drip. Sensor guidewire was placed. Dual-lumen catheter placed. A 2nd wire was placed in the bladder. At this 0.26 [place] by 24 cm double-J stents were placed into the right renal pelvis and the bladder under fluoroscopy and direct visualization. This was done as we did not want to risk 1 stent closing. He tolerated procedure well. Molina catheter was placed. Good drainage seen in the bag. Was transferred in stable condition to the recovery area. Pathology: Drains: Six [place] by 24 cm stent x2
[2021-05-19] MEDS: levoFLOXacin/D5W 500 MG/100 ML PIGGYBACK 100 MG IV (21:10)
--- NOTE | 2021-05-19 23:16 | ECG_ITS ---
Test Reason : 453 Blood Pressure : / mmHG Vent. Rate : 085 BPM Atrial Rate : 085 BPM P-R Int : 170 ms QRS Dur : 090 ms QT Int : 410 ms P-R-T Axes : 042 -18 -03 degrees QTc Int : 487 ms Normal sinus rhythm Left axis deviation Nonspecific ST abnormality Abnormal ECG QRS axis Shifted right Referred By: Donaldo Roberts Electronically Signed By:SHY TOLEDO MD
--- NOTE | 2021-05-19 23:16 | PM.IMHP ---
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 very confused. not sure why he is being in the hospital. Patient has had CT abdomen that demonstrated right-sided hydronephrosis.? on initial arrival to the hospital pt found to be significantly hypertensive and managed in the ED initially with bp of 204/105. Pt was taken to OR for ureteral stenting and now pt is confused but graves cath has bloody urine and pt is confused. I cannot get ROS as pt is confused Vitals post procedure shows a temperature of 98.7?, heart rate of 85, respiratory rate of 18, blood pressure 132/66 satting 94% on 2 L of nasal cannula Labs are significant for hemoglobin of 10.2 that dropped from 11.7, hematocrit of 33.4, potassium 6.0, no EKG changes. A on of 43, creatinine of 6.37 which worsened from 4.6 on arrival to the hospital, baseline of around 1.8 , UA showed UTI CT abd showed moderate right hydro ureteral nephrosis, suspicious for obstruction in the region of the urethra vascular junction. She this could be malignant or secondary to blood clot in the setting of hematuria. No obstructing calculus seen. Status post left nephrectomy. 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 Surgical History History of bladder surgery History of cystoscopy History of left nephrectomy (~11/29/20) Social History Household Members: None Housing: House Do you presently have visiting nurse or other home services: No Unable to assess alcohol history related to: Unknown Alcohol intake: unknown Patient Tobacco Use Status: Never used Tobacco Second Hand Smoke Exposure: No Use of substances other than those prescribed or required for medical reasons: No Currently Displaying Signs/Symptoms of Drug Intoxication Withdrawal: No Have you been hit, kicked, punched, or otherwise hurt by someone within the past year? If so, by whom?: No Do you feel safe in your current relationship?: No Current Relationship Is there a partner from a previous relationship who is making you feel unsafe now?: No Are you made to feel afraid or neglected: No Are you DNR?: No Advance Directives: No Advance Directives Information Provided: No Advance Directives on File: No Do you have thoughts of harming others: None Do you have a plan to hurt others: No Plan Recently lost weight without trying: Unsure Eating poorly because of decreased appetite: No Nutrition Risks: No Nutritional Risk Poor oral hygiene: No service: No Current occupational status: disabled Meds Allergies Allergy/AdvReac Type Severity Reaction Status Date / Time piperacillin [From ZOSYN] Allergy Intermediate REDNESS/WARMTH Verified 05/18/21 12:01 TO IV SITE. tazobactam [From ZOSYN] Allergy Intermediate REDNESS/WARMTH Verified 05/18/21 12:01 TO IV SITE. ibuprofen Allergy Unknown Unknown Verified 05/18/21 12:01 lamotrigine [Lamictal] Allergy Unknown Unknown Verified 05/18/21 12:01 Anti-Inflammatory Enzyme Allergy Unknown rash on Uncoded 05/18/21 12:01 both legs Active Medications: Current Medications Acetaminophen (Acetaminophen 325 Mg Tablet) 650 mg PO Q6H PRN PRN Reason: Pain, Mild (Pain Scale 1-3) Albuterol Sulfate (Albuterol Sulfate (0.083%) 2.5 Mg/3 Ml Vial.Neb) 2.5 mg INHALE ONCE PRN PRN Reason: Wheezing Docusate Sodium (Docusate Sodium 100 Mg Capsule) 100 mg PO DAILY PRN PRN Reason: Constipation Fentanyl (Fentanyl Citrate/Pf 100 Mcg/2 Ml Vial) 25 mcg IVPUSH Q5M PRN; Protocol PRN Reason: Pain, Moderate (Pain Scale 4-6 Hydromorphone HCl (Hydromorphone Hcl 0.5 Mg/0.5 Ml Syringe) 0.25 mg IVPUSH Q5M PRN; Protocol PRN Reason: Pain, Severe (Pain Scale 7-10) Hydromorphone HCl (Hydromorphone Hcl 0.5 Mg/0.5 Ml Syringe) 0.5 mg IVPUSH Q4H PRN; Protocol PRN Reason: Pain, Severe (Pain Scale 7-10) Promethazine HCl 12.5 mg/ (Sodium Chloride) 50.5 mls @ 202 mls/hr IV ONCE PRN PRN Reason: Nausea and Vomiting Ceftriaxone Sodium 1 gm/ (Sodium Chloride) 50 mls @ 100 mls/hr IV Q24H BALA Ondansetron HCl (Ondansetron Hcl 4 Mg/2 Ml Vial) 4 mg IVPUSH Q8H PRN PRN Reason: Nausea and Vomiting Pharmacy Consult (Consult Rx Perform Med Rec) 1 each MISCELLANE ONCE PRN PRN Reason: Consult order Sodium Chloride (0.9 % Sodium Chloride Flush 3 Ml Syringe) [address] [facility] Home Medications Medication Instructions Recorded Confirmed Last Taken Type oxycodone 20 mg tablet 1 tab PO TID PRN 04/10/21 05/19/21 04/08/21 History prednisone 10 mg tablet 10 mg PO DAILY tab 05/18/21 05/19/21 05/18/21 History acetaminophen 325 mg tablet 650 mg PO Q6H PRN 05/19/21 05/19/21 Unknown History albuterol sulfate 90 mcg/actuation 2 puff INHALATION Q4H PRN 05/19/21 05/19/21 Unknown History aerosol inhaler (Ventolin HFA) atenolol 25 mg tablet 1 tab PO DAILY 05/19/21 05/19/21 05/18/21 History ferrous sulfate 325 mg (65 mg 1 tab PO BID 05/19/21 05/19/21 05/18/21 History iron) tablet Physical Exam Vital Signs and Narrative: Vital Signs: Last Vital Signs Temp 99.2 F 05/19/21 21:15 Pulse 83 05/19/21 21:15 Resp 22 H 05/19/21 21:15 BP 143/75 H 05/19/21 21:15 Pulse Ox 98 05/19/21 21:15 Oxygen Flow Rate 2 05/19/21 20:27 Body Mass Index 35.3 Const: Other: Pt is confused , oriented to self but not to place or time General: cooperative Eyes: General: appearance normal, both eyes and all related structures Pupils: Equal, round and reactive pupils present Resp: Effort & Inspection: normal respiratory effort, able to speak in complete sentences and abnormal respiratory pattern Auscultation: clear to auscultation bilaterally Cardio: Rate: regular rate Rhythm: regular rhythm GI: Palpation (GI): Soft to palpation Auscultation: normal bowel sounds : Other: graves cath bloody urine Skin: General skin exam: no rashes or lesions noted Neuro: Other: confused Cranial nerves: Yes Equal, round and reactive pupils present Extrem: General: Yes normal to inspection and Yes no pedal edema Results Labs CBC and Chem 7: 05/20/21 00:11 05/20/21 00:11 Labs: Laboratory Results - last 24 hr 05/19/21 05/19/21 05/19/21 03:54 03:54 03:54 MCV 88.5 MCH 27.5 MCHC 31.0 RDW 15.6 Plt Count 179 MPV 10.8 Immature Gran % (Auto) 0.6 H Neut % (Auto) 86.7 H Lymph % (Auto) 6.0 L [facility] % (Auto) 5.6 Eos % (Auto) 0.9 Baso % (Auto) 0.2 Lymph # (Auto) 0.7 L [facility] # (Auto) 0.7 Eos # (Auto) 0.1 Baso # (Auto) 0.0 Abs Immat Gran (auto) 0.07 H Absolute Neuts (auto) 10.0 H Absolute Nucleated RBC 0.000 Nucleated RBC % (auto) 0.0 Anion Gap 15 Estim Creat Clear Calc 17.0 Estimated GFR 13 POC Glucose Random Glucose Fasting Glucose 127 H Calcium 8.8 Total Bilirubin 1.2 H AST 15 ALT 17 Alkaline Phosphatase 94 Total Protein 6.6 Albumin 4.2 Urine Color Urine Appearance Urine pH Ur Specific [place] Urine Protein Urine Glucose (UA) Urine Ketones Urine Blood Urine Nitrite Ur Leukocyte Esterase Urine RBC Urine WBC Ur Squamous Epith Cells Urine Bacteria Urine Mucus COVID-19 ([facility]) Negative COVID-19 Clin Com See Note 05/19/21 05/19/21 05/19/21 12:58 17:00 19:40 MCV MCH MCHC RDW Plt Count MPV Immature Gran % (Auto) Neut % (Auto) Lymph % (Auto) [facility] % (Auto) Eos % (Auto) Baso % (Auto) Lymph # (Auto) [facility] # (Auto) Eos # (Auto) Baso # (Auto) Abs Immat Gran (auto) Absolute Neuts (auto) Absolute Nucleated RBC Nucleated RBC % (auto) Anion Gap 15 Estim Creat Clear Calc 13.1 Estimated GFR 9 POC Glucose 118 H Random Glucose 122 H Fasting Glucose Calcium 8.6 Total Bilirubin AST ALT Alkaline Phosphatase Total Protein Albumin Urine Color RED Urine Appearance TURBID Urine pH 7.0 Ur Specific [place] 1.020 Urine Protein 3+ H Urine Glucose (UA) NEG Urine Ketones NEG Urine Blood 3+ H Urine Nitrite NEG Ur Leukocyte Esterase 2+ H Urine RBC TNTC H Urine WBC 5-9 H Ur Squamous Epith Cells NONE Urine Bacteria NONE Urine Mucus TRACE COVID-19 ([facility]) COVID-19 Clin Com Imaging Radiologist's Impressions: Impressions Abdomen/Pelvis CT 05/19/21 05:38 IMPRESSION: 1. Moderate right hydroureteronephrosis, suspicious for obstruction in the region of the ureterovesicular junction, which could be malignant in nature or secondary to blood clot in the setting of hematuria. No obstructing calculus seen. Bladder is collapsed with a Graves catheter and not well evaluated. 2. Status post left nephrectomy. 3. Coronary artery calcifications. Correlation with cardiac risk factors is recommended. This critical result was discussed with Dr. Booth on 05/19/2021 7:06 AM, and it was ascertained that the content and urgency of the report was understood at the time of direct communication. 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 Status post ureteral stenting done in the ER tonight # hydronephrosis - possibly secondary to malignancy versus blood clot - status post ureteral stent - urology following - has urine output with hematuria # ZINA and CKD - most likely secondary to obstruction as well as UTI - status post resolution of obstruction with stent placement - will start him on IV fluids - follow BMP - nephrology consult # hyperkalemia - most likely secondary to kidney failure - no EKG changes - will start patient on fluids - insulin, glucose, calcium gluconate, Kayexalate given - Follow BMP # hypertensive crisis - now controlled - continue home antihypertensives # hematuria - secondary to cancer as well as not stent - follow H&H - urology consulted # bladder cancer - urology following DVT prophylaxis: SCDs Quality Stroke Does the patient have a stroke diagnosis?: No VTE Prior VTE?: No VTE Risk Level:: Medical - moderate - high VTE Device Contraindication: N/A - Device Ordered VTE Drug Contraindication: Treatment Not Indicated
[2021-05-20] VITALS (10 sets, daily range): BP systolic 129–208; BP diastolic 65–97; PULSE 81–98; RESP 18–20; TEMP 36.4–37.3; O2SAT 90–96; BMI 35.6
[2021-05-20 00:14] LABS: Hematocrit 33.4 % (42.0-52.0); Hemoglobin 10.2 g/dl (14.0-18.0)
[2021-05-20] MEDS: 0.9 % Sodium Chloride Flush 3 ML SYRINGE IVFLUSH ×3 (00:20→21:15)
[2021-05-20 00:35] LABS: Anion Gap 13 (12-20); Blood Urea Nitrogen 43 mg/dL (9-16); Calcium 7.8 mg/dL (8.4-10.2); Carbon Dioxide 25 mmol/L (22-29); Chloride 112 mmol/L (96-108); Creatinine Clr Calc Pharmacy 12.3; Estimated Glomerular Filt Rate 9; Glucose Random 142 mg/dL (60-115); Sodium 144 mmol/L (135-145)
[2021-05-20] MEDS: Insulin Regular, Human 100 UNIT/ML 3 ML VIAL 10 UNIT IVPUSH (07:03)
[2021-05-20] MEDS: Sodium Polystyrene Sulfon/Sorb 15 GM/60 ML ORAL.SUSP 30 GM PO (07:03)
[2021-05-20 07:08] LABS: Glucose, Whole Blood 108 mg/dL (60-115)
[2021-05-20 07:39] LABS: MANUAL DIFF FLAG NO
[2021-05-20 07:47] LABS: Basophils Percent Auto 0.3 % (0-2); Eosinophils Absolute Auto 0.3 X10*3/uL (0.0-0.4); Eosinophils Percent Auto 2.3 % (0-4); Hematocrit 34.2 % (42.0-52.0); Hemoglobin 10.2 g/dl (14.0-18.0); Imm Gran Abs Auto 0.05 X10*3/uL (0.00-0.03); Imm Gran Pct Auto 0.5 % (0.0-0.4); Lymphocytes Percent Auto 9.4 % (20-40); Mean Corpuscular HGB Conc 29.8 g/dl (31.0-36.0); Mean Corpuscular Hemoglobin 26.8 pg (27.0-33.0); Mean Corpuscular Volume 89.8 fL (80.0-98.0); Mean Platelet Volume 11.4 fL (9.4-12.4); Monocytes Absolute Auto 0.7 X10*3/uL (0.1-1.2); Monocytes Percent Auto 6.2 % (2-11); Neutrophils Absolute Auto 8.9 x10*3/uL (2.0-8.3); Neutrophils Percent Auto 81.3 % (45-73); Platelet Count 176 X10*3/uL (160-400); Red Blood Count 3.81 X10*6/uL (4.60-5.80); Red Cell Distribution Width 16.2 % (11.0-16.0); White Blood Count 10.9 X10*3/uL (4.8-10.8)
--- NOTE | 2021-05-20 08:14 | P.CONNP_ITS ---
History of Present Illness Reason for Consult Consult date: 05/20/21 Reason for consult: stone high K Chief Complaint Chief complaint: ZINA, UTI, Hyperkalemia, Obstructing stone Review of Systems Review of Systems Yes all other systems are reviewed and are negative Constitutional: Reports no additional constitutional complaints, Denies chills and Denies fever(s) Eyes: Reports no additional eye complaints Denies dizziness Cardiovascular: Reports no additional cardiovascular complaints and Denies syncope Respiratory: Reports as per HPI and Denies cough Gastrointestinal: Reports no additional gastrointestinal complaints, Denies abdominal pain and Denies heartburn Genitourinary: Reports as per HPI and Denies change in libido Musculoskeletal: Reports no additional musculoskeletal complaints Skin/Breast: Denies rash Reports system reviewed and no additional complaints, except as documented, Denies dizziness, Denies syncope and Denies Sensory deficit (Neuro) Psychiatric: Denies anxiety and Denies change in libido Endocrine: Denies change in libido [facility] Past Medical History Medical History Anemia Asthma Benign essential hypertension Bipolar disorder Bladder cancer 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 Surgical History Surgical History History of bladder surgery History of cystoscopy History of left nephrectomy (~11/29/20) Social History Social History Household Members: None Housing: House Do you presently have visiting nurse or other home services: No Unable to assess alcohol history related to: Unknown Alcohol intake: unknown Patient Tobacco Use Status: Never used Tobacco Second Hand Smoke Exposure: No Use of substances other than those prescribed or required for medical reasons: No Currently Displaying Signs/Symptoms of Drug Intoxication Withdrawal: No Have you been hit, kicked, punched, or otherwise hurt by someone within the past year? If so, by whom?: No Do you feel safe in your current relationship?: No Current Relationship Is there a partner from a previous relationship who is making you feel unsafe now?: No Are you made to feel afraid or neglected: No Are you DNR?: No Advance Directives: No Advance Directives Information Provided: No Advance Directives on File: No Do you have thoughts of harming others: None Do you have a plan to hurt others: No Plan Recently lost weight without trying: Unsure Eating poorly because of decreased appetite: No Nutrition Risks: No Nutritional Risk Poor oral hygiene: No service: No Current occupational status: disabled Meds Allergies Allergy/AdvReac Type Severity Reaction Status Date / Time piperacillin [From ZOSYN] Allergy Intermediate REDNESS/WARMTH Verified 05/18/21 12:01 TO IV SITE. tazobactam [From ZOSYN] Allergy Intermediate REDNESS/WARMTH Verified 05/18/21 12:01 TO IV SITE. ibuprofen Allergy Unknown Unknown Verified 05/18/21 12:01 lamotrigine [Lamictal] Allergy Unknown Unknown Verified 05/18/21 12:01 Anti-Inflammatory Enzyme Allergy Unknown rash on Uncoded 05/18/21 12:01 both legs Active Medications: Current Medications Acetaminophen (Acetaminophen 325 Mg Tablet) 650 mg PO Q6H PRN PRN Reason: Pain, Mild (Pain Scale 1-3) Albuterol Sulfate (Albuterol Sulfate (0.083%) 2.5 Mg/3 Ml Vial.Neb) 2.5 mg INHALE ONCE PRN PRN Reason: Wheezing Albuterol Sulfate (Albuterol Sulfate 90 Mcg 8 Gm Inhaler) 2 puff INHALE Q4H PRN PRN Reason: Wheezing Atenolol (Atenolol 25 Mg Tablet) 25 mg PO DAILY [facility]; Protocol Dextrose (Dextrose 50 % 25 Gm/50 Ml Vial) 25 gm IVPUSH Q15M PRN PRN Reason: per Hypoglycemia Standing Ord. Docusate Sodium (Docusate Sodium 100 Mg Capsule) 100 mg PO DAILY PRN PRN Reason: Constipation Fentanyl (Fentanyl Citrate/Pf 100 Mcg/2 Ml Vial) 25 mcg IVPUSH Q5M PRN; Protocol PRN Reason: Pain, Moderate (Pain Scale 4-6 Ferrous Sulfate (Ferrous Sulfate 324 Mg Tablet.) 324 mg PO BID [facility] Hydromorphone HCl (Hydromorphone Hcl 0.5 Mg/0.5 Ml Syringe) 0.5 mg IVPUSH Q4H PRN; Protocol PRN Reason: Pain, Severe (Pain Scale 7-10) Promethazine HCl 12.5 mg/ (Sodium Chloride) 50.5 mls @ 202 mls/hr IV ONCE PRN PRN Reason: Nausea and Vomiting Ceftriaxone Sodium 1 gm/ (Sodium Chloride) 50 mls @ 100 mls/hr IV Q24H [facility] Lactated Ringer's (Lr) 1,000 mls @ 125 mls/hr IVCONT .Q8H [facility] Ondansetron HCl (Ondansetron Hcl 4 Mg/2 Ml Vial) 4 mg IVPUSH Q8H PRN PRN Reason: Nausea and Vomiting Oxycodone HCl (Oxycodone Hcl Immed Release 5 Mg Tablet) 20 mg PO TID PRN PRN Reason: severe pain Pharmacy Consult (Consult Rx Perform Med Rec) 1 each MISCELLANE ONCE PRN PRN Reason: Consult order Prednisone (Prednisone 10 Mg Tablet) 40 mg PO DAILY [facility] Stop: 05/21/21 09:01 Prednisone (Prednisone 10 Mg Tablet) 30 mg PO DAILY [facility] Stop: 05/23/21 09:01 Prednisone (Prednisone 10 Mg Tablet) 20 mg PO DAILY [facility] Stop: 05/25/21 09:01 Prednisone (Prednisone 10 Mg Tablet) 10 mg PO DAILY [facility] Stop: 05/27/21 09:01 Sodium Chloride (0.9 % Sodium Chloride Flush 3 Ml Syringe) 3 ml IVFLUSH QSTNFT [facility] Last Admin: 05/20/21 00:20 Dose: 3 ml Documented by: Zolpidem Tartrate (Zolpidem Tartrate 5 Mg Tablet) 10 mg PO BEDTIME PRN PRN Reason: insomnia Home Medications Medication Instructions Recorded Confirmed Last Taken Type oxycodone 20 mg tablet 1 tab PO TID PRN 04/10/21 05/19/21 04/08/21 History prednisone 10 mg tablet 10 mg PO DAILY tab 05/18/21 05/19/21 05/18/21 History acetaminophen 325 mg tablet 650 mg PO Q6H PRN 05/19/21 05/19/21 Unknown History albuterol sulfate 90 mcg/actuation 2 puff INHALATION Q4H PRN 05/19/21 05/19/21 Unknown History aerosol inhaler (Ventolin HFA) atenolol 25 mg tablet 1 tab PO DAILY 05/19/21 05/19/21 05/18/21 History ferrous sulfate 325 mg (65 mg 1 tab PO BID 05/19/21 05/19/21 05/18/21 History iron) tablet Physical Exam Vital Signs: Last Vital Signs Temp 97.7 F 05/20/21 08:00 Pulse 85 05/20/21 08:00 Resp 18 05/20/21 08:00 BP 129/66 05/20/21 08:00 Pulse Ox 94 05/20/21 08:00 Oxygen Flow Rate 2 05/19/21 20:27 Body Mass Index 35.6 Const Other: Pt is confused , oriented to self but not to place or time General: cooperative, healthy appearing, comfortable and no acute distress Nutritional Appearance: average body habitus Orientation/consciousness: oriented to person and patient oriented x3 Limitations: no limitations and No language barrier HENMT Head: Yes normal to inspection Ears: external ears normal General nose exam: Normal external nose present Face and sinus: Yes normal facial exam Mouth: Normal oral and palatal mucosa present, oropharynx normal and moist mucous membranes Throat: Yes posterior oropharynx normal Eyes General: appearance normal, both eyes and all related structures Pupils: Equal, round and reactive pupils present Neck Other: supple Neck: Yes normal visual inspection, Yes full ROM and Yes trachea midline Chest Chest palpation & inspection: normal inspection of the chest Resp Effort & Inspection: normal respiratory effort, able to speak in complete sentences, abnormal respiratory pattern and no respiratory distress Auscultation: clear to auscultation bilaterally Cardio Jugular venous distension: no JVD Rate: regular rate Rhythm: regular rhythm Heart sounds: S1 normal heart sound present and S2 normal heart sound present GI Other: suprapubic tenderness with guarding no rebound Inspection: Yes normal to inspection Palpation (GI): Soft to palpation Auscultation: normal bowel sounds Other: graves cath bloody urine General: Yes no CVA tenderness Back/Spine/Pelvis Back: no CVA tenderness Cervical Spine: normal cervical lordosis Thoracic/Lumbar Spine: thoracic and lumbar spine normal to inspection Skin General skin exam: no rashes or lesions noted Neuro Other: confused General: oriented to person, patient oriented x3, gait normal, tone normal and moves all extremities Cranial nerves: Yes CN's II-XII intact bilaterally and Yes Equal, round and nereyda ctive pupils present Motor exam (neuro): 5/5 motor strength present throughout Sensory Exam: No Sensory deficit (Neuro) Extrem General: Yes normal to inspection, Yes capillary refill normal and Yes no pedal edema Psych Appearance: grossly normal Results Lab Results Result Diagrams: 05/20/21 07:02 05/20/21 00:11 Lab results: Chemistry 05/19/21 05/19/21 05/20/21 03:54 17:00 00:11 Sodium 142 143 144 Potassium 5.9 H D 6.8 H* 6.0 H* Carbon Dioxide 25 23 25 BUN 33 H 41 H 43 H Creatinine 4.60 H* 5.94 H* 6.37 H* Calcium 8.8 8.6 7.8 L D Hematology 05/19/21 05/20/21 05/20/21 03:54 00:11 07:02 WBC 11.5 H 10.9 H Hgb 11.7 L 10.2 L 10.2 L Plt Count 179 176 Urinalysis 05/19/21 12:58 Urine Color RED Urine Appearance TURBID Urine pH 7.0 Ur Specific [place] 1.020 Urine Protein 3+ H Urine Glucose (UA) NEG Urine Ketones NEG Urine Blood 3+ H Urine Nitrite NEG Ur Leukocyte Esterase 2+ H Urine RBC TNTC H Urine WBC 5-9 H Ur Squamous Epith Cells NONE Assessment and Plan (1) Hydronephrosis: Status: Acute (2) Acute renal failure: Qualifiers: Acute renal failure type: unspecified Qualified Code(s): N17.9 - Acute kidney failure, unspecified Status: Acute (3) Urinary tract infection: Qualifiers: Hematuria presence: with hematuria Urinary tract infection type: acute cystitis Qualified Code(s): N30.01 - Acute cystitis with hematuria Status: Acute (4) Hypertension: Status: Acute (5) 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 one kidney now remaining kidney is obstructed. He has had a sent placed last night retrograde by urology, and has good UO. He has progression of his cancer obstructing his only kidney. I agree with current management. I have ordered lokelma for the high K This is a 71-year-old male with past medical history of cancer of the left renal pelvis and ureter, transitional cell carcinoma of left kidney status post nephrectomy of left kidney, and now bladder cancer who presents to the hospital with hematuria found to have moderate right hydroureteronephrosis. Status post ureteral stenting done in the ER tonight # hydronephrosis - possibly secondary to malignancy versus blood clot - status post ureteral stent - urology following - has urine output with hematuria # ZINA and CKD - most likely secondary to obstruction as well as UTI - status post resolution of obstruction with stent placement - will start him on IV fluids - follow BMP - # hyperkalemia - most likely secondary to kidney failure - no EKG changes - will start patient on fluids - insulin, glucose, calcium gluconate, Kayexalate given - Follow BMP # hypertensive crisis - now controlled - continue home antihypertensives # hematuria - secondary to cancer as well as not stent - follow H&H - urology consulted # bladder cancer - urology following DVT prophylaxis: SCDs Procedures Date of Service Date of Service: 05/20/21
[2021-05-20 08:18] LABS: Anion Gap 15 (12-20); Blood Urea Nitrogen 43 mg/dL (9-16); Calcium 7.9 mg/dL (8.4-10.2); Carbon Dioxide 24 mmol/L (22-29); Chloride 109 mmol/L (96-108); Creatinine Clr Calc Pharmacy 13.2; Estimated Glomerular Filt Rate 9; Glucose Random 96 mg/dL (60-115); Potassium 5.6 mmol/L (3.3-5.1); Sodium 142 mmol/L (135-145)
[2021-05-20 08:34] LABS: Glucose, Whole Blood 167 mg/dL (60-115)
[2021-05-20 08:34] LABS: Glucose, Whole Blood 46 mg/dL (60-115)
[2021-05-20] MEDS: Calcium Gluconate/NaCl,Iso-Osm 1 GM/50 ML PLAST..BAG IV (08:40)
[2021-05-20] MEDS: Ferrous Sulfate 324 MG TABLET.DR PO ×2 (09:08→21:08)
[2021-05-20 10:18] LABS: Glucose, Whole Blood 127 mg/dL (60-115)
[2021-05-20] MEDS: cefTRIAXone sodium 1 GM in 0.9 % Sodium Chloride 50 ML IV ×2 (10:47→18:12)
[2021-05-20 10:59] LABS: Anion Gap 16 (12-20); Blood Urea Nitrogen 43 mg/dL (9-16); Calcium 8.1 mg/dL (8.4-10.2); Carbon Dioxide 24 mmol/L (22-29); Chloride 109 mmol/L (96-108); Glucose Random 121 mg/dL (60-115); Potassium 5.1 mmol/L (3.3-5.1); Sodium 144 mmol/L (135-145)
[2021-05-20 11:01] LABS: Creatinine Clr Calc Pharmacy 13.8; Estimated Glomerular Filt Rate 10
[2021-05-20] MEDS: 0.9 % Sodium Chloride 1,000 ML 125 ML IVCONT ×2 (12:01→21:13)
--- NOTE | 2021-05-20 14:40 | HO.POSTANES ---
Post Anesthesia Evaluation Post Anesthesia Evaluation Vital Signs: Vital Signs Temp Pulse Resp BP Pulse Ox 05/20/21 11:18 98.2 F 84 20 138/65 96 05/20/21 08:00 97.7 F 85 18 129/66 94 05/20/21 03:08 97.5 F 87 18 134/71 94 Anesthesia: General LMA Mental Status: Awake Pain Control: Satisfactory Nausea/Vomiting: None Hydration: Adequate Anesthesia-Related Issues: No Anes. Related Issues
--- NOTE | 2021-05-20 14:46 | MHC.CM.PN ---
CM MET WITH PT WHO REPORTS HE LIVES ALONE AND IS INDEPENDENT WITH ALL CARE. PT REPORTS HE HAS NO HOME SERVICES PT HAS A CANE AND A NEBULIZER. PT REPORTS HIS HCP IS HIS SON, JESUS, COPY REQUESTED. IMM DELIVERED CURRENT DC PLAN IS HOME WITH NO SERVICES PT WILL SELF ARRANGE TRANSPORT WITH FAMILY
--- NOTE | 2021-05-20 14:54 | P.PNIM_ITS ---
Subjective Subjective Date of Service: 05/21/21 Interval History: Patient found to be hypoglycemic this morning, treated with D50 and orange juice, currently feeling better awake alert answering questions appropriately, feels abdominal pain has improved, denies nausea vomiting, no headache tolerating diet. Review of Systems General no headache, no dizziness no fever chills. CVS no chest pain, no palpitation. Respiratory no cough no sputum production no respiratory distress. Gastrointestinal no nausea, no vomiting, no abdominal pain Skin no itching , chronic rash Review of Systems: Yes all other systems are reviewed and are negative Physical Exam Vital Signs: Vital Signs: Last Vital Signs Temp 98.2 F 05/20/21 11:18 Pulse 84 05/20/21 11:18 Resp 20 05/20/21 11:18 BP 138/65 05/20/21 11:18 Pulse Ox 96 05/20/21 11:18 Oxygen Flow Rate 2 05/19/21 20:27 Body Mass Index 35.6 General awake alert x3,no acute distress. Neck no JVD. CVS regular rate rhythm, Respiratory lungs clear to auscultation, no respiratory distress, no wheeze, no rhonchi. Gastrointestinal abdomen soft, nontender, bowel sounds audible, no guarding , no rigidity. Extremities no edema. Neuro nonfocal Skin rash Psych appropriate affect Molina punch color urine Objective Data Active Medications Acetaminophen (Acetaminophen 325 Mg Tablet) 650 mg PO Q6H PRN PRN Reason: Pain, Mild (Pain Scale 1-3) Albuterol Sulfate (Albuterol Sulfate (0.083%) 2.5 Mg/3 Ml Vial.Neb) 2.5 mg INHALE ONCE PRN PRN Reason: Wheezing Albuterol Sulfate (Albuterol Sulfate 90 Mcg 8 Gm Inhaler) 2 puff INHALE Q4H PRN PRN Reason: Wheezing Atenolol (Atenolol 25 Mg Tablet) 25 mg PO DAILY [facility]; Protocol Last Admin: 05/20/21 08:18 Dose: Not Given Documented by: JAE Non-Admin Reason: Physician Held Med Dextrose (Dextrose 50 % 25 Gm/50 Ml Vial) 25 gm IVPUSH Q15M PRN PRN Reason: per Hypoglycemia Standing Ord. Last Admin: 05/20/21 08:18 Dose: 25 gm Documented by: JAE Docusate Sodium (Docusate Sodium 100 Mg Capsule) 100 mg PO DAILY PRN PRN Reason: Constipation Fentanyl (Fentanyl Citrate/Pf 100 Mcg/2 Ml Vial) 25 mcg IVPUSH Q5M PRN; Protocol PRN Reason: Pain, Moderate (Pain Scale 4-6 Ferrous Sulfate (Ferrous Sulfate 324 Mg Tablet.) 324 mg PO BID [facility] Last Admin: 05/20/21 09:08 Dose: 324 mg Documented by: JAE Hydromorphone HCl (Hydromorphone Hcl 0.5 Mg/0.5 Ml Syringe) 0.5 mg IVPUSH Q4H PRN; Protocol PRN Reason: Pain, Severe (Pain Scale 7-10) Promethazine HCl 12.5 mg/ (Sodium Chloride) 50.5 mls @ 202 mls/hr IV ONCE PRN PRN Reason: Nausea and Vomiting Ceftriaxone Sodium 1 gm/ (Sodium Chloride) 50 mls @ 100 mls/hr IV Q24H [facility] Last Admin: 05/20/21 10:49 Dose: Not Given Documented by: JAE Non-Admin Reason: Medication Discontinued Sodium Chloride (Ns) 1,000 mls @ 125 mls/hr IVCONT .Q8H [facility] Last Admin: 05/20/21 12:01 Dose: 125 mls/hr Documented by: JAE Ceftriaxone Sodium 1 gm/ (Sodium Chloride) 50 mls @ 100 mls/hr IV Q24H [facility] Last Infusion: 05/20/21 11:33 Dose: 0 mls/hr Documented by: JAE Omeprazole (Omeprazole 20 Mg Capsule.) 20 mg PO DAILY@0630 [facility] Ondansetron HCl (Ondansetron Hcl 4 Mg/2 Ml Vial) 4 mg IVPUSH Q8H PRN PRN Reason: Nausea and Vomiting Oxycodone HCl (Oxycodone Hcl Immed Release 5 Mg Tablet) 20 mg PO TID PRN PRN Reason: severe pain Pharmacy Consult (Consult Rx Perform Med Rec) 1 each MISCELLANE ONCE PRN PRN Reason: Consult order Prednisone (Prednisone 10 Mg Tablet) 10 mg PO DAILY [facility] Sodium Chloride (0.9 % Sodium Chloride Flush 3 Ml Syringe) 3 ml IVFLUSH QSHIFT [facility] Last Admin: 05/20/21 08:18 Dose: 3 ml Documented by: HO.MORRIA Sodium Zirconium Cyclosilicate (Sodium Zirconium Cyclosilicate 10 Gm Powd.Pack) 5 gm PO DAILY [facility] Zolpidem Tartrate (Zolpidem Tartrate 5 Mg Tablet) 10 mg PO BEDTIME PRN PRN Reason: insomnia Labs CBC & Chem 7: 05/21/21 05:38 05/21/21 05:38 Labs: Laboratory Results - last 24 hr 05/19/21 05/19/21 05/20/21 17:00 19:40 00:11 MCV MCH MCHC RDW Plt Count MPV Immature Gran % (Auto) Neut % (Auto) Lymph % (Auto) Cobb % (Auto) Eos % (Auto) Baso % (Auto) Lymph # (Auto) Cobb # (Auto) Eos # (Auto) Baso # (Auto) Abs Immat Gran (auto) Absolute Neuts (auto) Absolute Nucleated RBC Nucleated RBC % (auto) Anion Gap 15 13 Estim Creat Clear Calc 13.1 12.3 Estimated GFR 9 9 POC Glucose 118 H Random Glucose 122 H 142 H Calcium 8.6 7.8 L D 05/20/21 05/20/21 05/20/21 07:02 07:02 07:02 MCV 89.8 MCH 26.8 L MCHC 29.8 L RDW 16.2 H Plt Count 176 MPV 11.4 Immature Gran % (Auto) 0.5 H Neut % (Auto) 81.3 H Lymph % (Auto) 9.4 L Cobb % (Auto) 6.2 Eos % (Auto) 2.3 Baso % (Auto) 0.3 Lymph # (Auto) 1.0 L Cobb # (Auto) 0.7 Eos # (Auto) 0.3 Baso # (Auto) 0.0 Abs Immat Gran (auto) 0.05 H Absolute Neuts (auto) 8.9 H Absolute Nucleated RBC 0.000 Nucleated RBC % (auto) 0.0 Anion Gap Cancelled 15 Estim Creat Clear Calc Cancelled 13.2 Estimated GFR Cancelled 9 POC Glucose Random Glucose Cancelled 96 Calcium Cancelled 7.9 L 05/20/21 05/20/21 05/20/21 07:02 08:04 08:31 MCV MCH MCHC RDW Plt Count MPV Immature Gran % (Auto) Neut % (Auto) Lymph % (Auto) Cobb % (Auto) Eos % (Auto) Baso % (Auto) Lymph # (Auto) Cobb # (Auto) Eos # (Auto) Baso # (Auto) Abs Immat Gran (auto) Absolute Neuts (auto) Absolute Nucleated RBC Nucleated RBC % (auto) Anion Gap Estim Creat Clear Calc Estimated GFR POC Glucose 108 46 L* 167 H Random Glucose Calcium 05/20/21 05/20/21 09:44 10:14 MCV MCH MCHC RDW Plt Count MPV Immature Gran % (Auto) Neut % (Auto) Lymph % (Auto) Cobb % (Auto) Eos % (Auto) Baso % (Auto) Lymph # (Auto) Cobb # (Auto) Eos # (Auto) Baso # (Auto) Abs Immat Gran (auto) Absolute Neuts (auto) Absolute Nucleated RBC Nucleated RBC % (auto) Anion Gap 16 Estim Creat Clear Calc 13.8 Estimated GFR 10 POC Glucose 127 H Random Glucose 121 H Calcium 8.1 L Microbiology Microbiology Results: Microbiology 05/19/21 13:15 Urine Culture - Final Urine Catheterized - Molina Catheter 05/19/21 07:33 Blood Culture - Preliminary Blood - Venous No growth after 24 hours. 05/19/21 07:16 Blood Culture - Preliminary Blood - Venous No growth after 24 hours. 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 # ZINA and CKD stage III most likely secondary to obstruction , UA showed no bacteria but positive for WBC and nitrates follow urine culture on IV ceftriaxone will DC if urine culture negative status post resolution of obstruction with stent placement continue IV fluid making urine, follow BMP case discussed with Dr. King # hyperkalemia most likely secondary to acute kidney failure, no EKG changes Potassium improved from 6.8 -5.1this am treated with insulin, glucose, calcium gluconate, and Kayexalate Follow BMP # hypertensive crisis due to obstruction, pain, not taking home medication blood pressure significantly improved continue home antihypertensive atenolol 25 mg daily # hematuria secondary to cancer , follow H&H and Urology follow Hematocrit stable # dermatitis Patient has chronic rash being followed by [facility] as well as primary care physician and is on prednisone 10 mg daily, frequently takes prednisone high-dose with tapering . # chronic back pain due to bladder tumor continue home analgesics takes oxycod one 20 mg t.i.d. DVT prophylaxis: SCDs due to hematuria Quality Stroke Does the patient have a stroke diagnosis?: No VTE Prior VTE?: No VTE Risk Level:: Medical - moderate - high VTE Device Contraindication: N/A - Device Ordered VTE Drug Contraindication: Treatment Not Indicated
[2021-05-20] MEDS: amLODIPine Besylate 5 MG TABLET PO (15:54)
[2021-05-20] MEDS: hydrALAZINE HCl 50 MG TABLET PO (18:50)
[2021-05-20 19:45] LABS: Glucose, Whole Blood 113 mg/dL (60-115)
[2021-05-20] MEDS: predniSONE 10 MG TABLET PO (21:23)
[2021-05-20] MEDS: oxyCODONE HCl Immed Release 5 MG TABLET 20 MG PO (21:24)
[2021-05-21] VITALS (11 sets, daily range): BP systolic 153–190; BP diastolic 76–94; PULSE 62–88; RESP 20; TEMP 36.4–36.9; O2SAT 94–97
[2021-05-21] MEDS: 0.9 % Sodium Chloride 1,000 ML 125 ML IVCONT ×3 (05:03→17:49)
[2021-05-21 06:14] LABS: Hematocrit 31.8 % (42.0-52.0); Hemoglobin 9.5 g/dl (14.0-18.0); Mean Corpuscular HGB Conc 29.9 g/dl (31.0-36.0); Mean Corpuscular Hemoglobin 26.8 pg (27.0-33.0); Mean Corpuscular Volume 89.6 fL (80.0-98.0); Mean Platelet Volume 11.4 fL (9.4-12.4); Platelet Count 139 X10*3/uL (160-400); Red Blood Count 3.55 X10*6/uL (4.60-5.80); Red Cell Distribution Width 15.6 % (11.0-16.0); White Blood Count 6.7 X10*3/uL (4.8-10.8)
[2021-05-21 06:47] LABS: Anion Gap 14 (12-20); Blood Urea Nitrogen 34 mg/dL (9-16); Calcium 8.1 mg/dL (8.4-10.2); Carbon Dioxide 23 mmol/L (22-29); Chloride 109 mmol/L (96-108); Creatinine Clr Calc Pharmacy 19.1; Estimated Glomerular Filt Rate 14; Glucose Random 136 mg/dL (60-115); Sodium 141 mmol/L (135-145)
[2021-05-21 07:46] LABS: Glucose, Whole Blood 109 mg/dL (60-115)
--- NOTE | 2021-05-21 08:19 | PM.PNNEP ---
Subjective Subjective Date of Service: 05/21/21 Interval history: stable overnight Physical Exam Vital Signs: Vital Signs: Last Vital Signs Temp 97.9 F 05/21/21 07:44 Pulse 75 05/21/21 07:44 Resp 20 05/21/21 07:44 BP 185/90 H 05/21/21 07:44 Pulse Ox 97 05/21/21 07:44 Oxygen Flow Rate 2 05/19/21 20:27 Body Mass Index 35.6 Const: Other: Pt is confused , oriented to self but not to place or time General: cooperative, healthy appearing, comfortable and no acute distress Nutritional Appearance: average body habitus Orientation/consciousness: oriented to person and patient oriented x3 Limitations: no limitations and No language barrier HENMT: Head: Yes normal to inspection Ears: external ears normal General nose exam: Normal external nose present Face and sinus: Yes normal facial exam Mouth: Normal oral and palatal mucosa present, oropharynx normal and moist mucous membranes Throat: Yes posterior oropharynx normal Eyes: General: appearance normal, both eyes and all related structures Pupils: Equal, round and reactive pupils present Neck: Other: supple Neck: Yes normal visual inspection, Yes full ROM and Yes trachea midline Chest: Chest palpation & inspection: normal inspection of the chest Resp: Effort & Inspection: normal respiratory effort, able to speak in complete sentences, abnormal respiratory pattern and no respiratory distress Auscultation: clear to auscultation bilaterally Cardio: Jugular venous distension: no JVD Rate: regular rate Rhythm: regular rhythm Heart sounds: S1 normal heart sound present and S2 normal heart sound present GI: Other: suprapubic tenderness with guarding no rebound Inspection: Yes normal to inspection Palpation (GI): Soft to palpation Auscultation: normal bowel sounds : Other: graves cath bloody urine General: Yes no CVA tenderness Back/Spine/Pelvis: Back: no CVA tenderness Cervical Spine: normal cervical lordosis Thoracic/Lumbar Spine: thoracic and lumbar spine normal to inspection Skin: General skin exam: no rashes or lesions noted Neuro: Other: confused General: oriented to person, patient oriented x3, gait normal, tone normal and moves all extremities Cranial nerves: Yes CN's II-XII intact bilaterally and Yes Equal, round and reactive pupils present Motor exam (neuro): 5/5 motor strength present throughout Sensory Exam: No Sensory deficit (Neuro) Extrem: General: Yes normal to inspection, Yes capillary refill normal and Yes no pedal edema Psych: Appearance: grossly normal Objective Data Labs CBC & Chem 7: 05/21/21 05:38 05/21/21 05:38 Labs: Laboratory Results - last 24 hr 05/20/21 05/20/21 05/20/21 08:04 08:31 09:44 WBC RBC Hgb Hct MCV MCH MCHC RDW Plt Count MPV Absolute Nucleated RBC Nucleated RBC % (auto) Sodium 144 Potassium 5.1 Chloride 109 H Carbon Dioxide 24 Anion Gap 16 BUN 43 H Creatinine 5.70 H* Estim Creat Clear Calc 13.8 Estimated GFR 10 POC Glucose 46 L* 167 H Random Glucose 121 H Calcium 8.1 L 05/20/21 05/20/21 05/21/21 10:14 19:29 05:38 WBC 6.7 RBC 3.55 L Hgb 9.5 L Hct 31.8 L MCV 89.6 MCH 26.8 L MCHC 29.9 L RDW 15.6 Plt Count 139 L MPV 11.4 Absolute Nucleated RBC 0.000 Nucleated RBC % (auto) 0.0 Sodium Potassium Chloride Carbon Dioxide Anion Gap BUN Creatinine Estim Creat Clear Calc Estimated GFR POC Glucose 127 H 113 Random Glucose Calcium 05/21/21 05/21/21 05:38 07:37 WBC RBC Hgb Hct MCV MCH MCHC RDW Plt Count MPV Absolute Nucleated RBC Nucleated RBC % (auto) Sodium 141 Potassium 5.0 Chloride 109 H Carbon Dioxide 23 Anion Gap 14 BUN 34 H Creatinine 4.11 H* Estim Creat Clear Calc 19.1 Estimated GFR 14 POC Glucose 109 Random Glucose 136 H Calcium 8.1 L Microbiology Microbiology Results: Microbiology 05/19/21 13:15 Urine Catheterized - Graves Catheter Urine Culture - Final 05/19/21 07:33 Blood - Venous Blood Culture - Preliminary No growth after 24 hours. 05/19/21 07:16 Blood - Venous Blood Culture - Preliminary No growth after 24 hours. 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 Moderate right hydroureteronephrosis, suspicious for obstruction in the region of the ureterovesicular junction, which could be malignant in nature or secondary to blood clot in the setting of hematuria. No obstructing calculus seen. Bladder is collapsed with a Graves catheter and not well evaluated. 2.? Status post left nephrectomy. 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 # ZINA and CKD stage III most likely secondary to obstruction , UA showed no bacteria but positive for WBC and nitrates follow urine culture on IV ceftriaxone status post resolution of obstruction with stent placement continue IV fluid making urine, follow BMP case discussed with Dr. King # hyperkalemia most likely secondary to acute kidney failure, no EKG changes Potassium improved from 6.8 -5.1this am treated with insulin, glucose, calcium gluconate, and Kayexalate Follow BMP # hypertensive crisis due to obstruction, pain, not taking home medication blood pressure significantly improved continue home antihypertensive atenolol 25 mg daily # hematuria secondary to cancer , follow H&H and Urology follow Hematocrit stable # dermatitis Patient has chronic rash being followed by immune a largest as well as primary care physician and is on prednisone 10 mg daily, frequently takes prednisone high-dose with tapering . # chronic back pain due to bladder tumor takes oxycodone 20 mg t.i.d. DVT prophylaxis: SCDs due to hematuria Time Spent With Patient Time: Total time spent is greater than 50% in coordination of care (as documented) at patient's floor/unit and/or counseling patient: Progress Note: Quality Stroke Does the patient have a stroke diagnosis?: No
[2021-05-21] MEDS: Ferrous Sulfate 324 MG TABLET.DR PO ×2 (08:24→19:56)
[2021-05-21] MEDS: hydrALAZINE HCl 50 MG TABLET PO (08:24)
[2021-05-21] MEDS: oxyCODONE HCl Immed Release 5 MG TABLET 20 MG PO ×3 (08:25→19:57)
[2021-05-21] MEDS: atenoloL 25 MG TABLET PO (08:25)
[2021-05-21] MEDS: predniSONE 10 MG TABLET PO (08:25)
[2021-05-21] MEDS: Omeprazole 20 MG CAPSULE.DR PO (08:25)
[2021-05-21] MEDS: 0.9 % Sodium Chloride Flush 3 ML SYRINGE IVFLUSH ×3 (08:26→19:56)
[2021-05-21] MEDS: cefTRIAXone sodium 1 GM in 0.9 % Sodium Chloride 50 ML IV (08:26)
[2021-05-21] MEDS: Sodium Zirconium Cyclosilicate 10 GM POWD.PACK 5 GM PO (08:26)
[2021-05-21] MEDS: amLODIPine Besylate 5 MG TABLET PO ×2 (08:26→10:38)
[2021-05-21] MEDS: Calamine/Zinc Oxide LOTION 177 ML BOTTLE 1 APPL TOPICAL (08:33)
--- NOTE | 2021-05-21 09:04 | P.PNIM_ITS ---
Subjective Subjective Date of Service: 05/21/21 Interval History: Being followed for hematuria acute kidney injury and hypertensive urgency, this morning patient complaining of back pain requesting for oxycodone and also complaining discomfort due to rash both upper extremities and legs, continue to have punch colored urine. Review of Systems General no headache, no dizziness no fever chills.? CVS no chest pain, no palpitation.? Respiratory no cough no sputum production no respiratory distress.? Gastrointestinal no nausea, no vomiting, no abdominal pain Skin itching , chronic rash Musculoskeletal back pain Review of Systems: Yes all other systems are reviewed and are negative Physical Exam Vital Signs: Vital Signs: Last Vital Signs Temp 97.9 F 05/21/21 07:44 Pulse 75 05/21/21 08:26 Resp 20 05/21/21 07:44 BP 185/90 H 05/21/21 08:26 Pulse Ox 97 05/21/21 07:44 Oxygen Flow Rate 2 05/19/21 20:27 Body Mass Index 35.6 General awake aler t x3,no acute dist ress.? Neck? no JV D. CVS? regular ra te rhythm, Respira tory lungs clear t o auscultation, no respiratory distr ess, no wheeze, no rhonchi. Gastroin testinal abdomen s oft, nontender, bravo wel sounds audible , no guarding , no rigidity. Extremi ties pitting edema . Neuro nonfocal S kin rash both uppe r extremities and legs, dry skin wit h hyperemia Psych appropriate affect Molina punch color urine Objective Data Active Medications Acetaminophen (Acetaminophen 325 Mg Tablet) 650 mg PO Q6H PRN PRN Reason: Pain, Mild (Pain Scale 1-3) Albuterol Sulfate (Albuterol Sulfate (0.083%) 2.5 Mg/3 Ml Vial.Neb) 2.5 mg INHALE ONCE PRN PRN Reason: Wheezing Albuterol Sulfate (Albuterol Sulfate 90 Mcg 8 Gm Inhaler) 2 puff INHALE Q4H PRN PRN Reason: Wheezing Amlodipine Besylate (Amlodipine Besylate 10 Mg Tablet) 10 mg PO DAILY BALA; Protocol Atenolol (Atenolol 100 Mg Tablet) 100 mg PO DAILY BALA; Protocol Calamine (Calamine/Zinc Oxide Lotion 177 Ml Bottle) 1 appl TOPICAL Q3H PRN; Protocol PRN Reason: itchiness Last Admin: 05/21/21 08:33 Dose: 1 appl Documented by: JAE Calamine (Calamine/Zinc Oxide Lotion 177 Ml Bottle) 1 appl TOPICAL QID PRN; Protocol PRN Reason: dermatitis Dextrose (Dextrose 50 % 25 Gm/50 Ml Vial) 25 gm IVPUSH Q15M PRN PRN Reason: per Hypoglycemia Standing Ord. Last Admin: 05/20/21 08:18 Dose: 25 gm Documented by: JAE Docusate Sodium (Docusate Sodium 100 Mg Capsule) 100 mg PO DAILY PRN PRN Reason: Constipation Fentanyl (Fentanyl Citrate/Pf 100 Mcg/2 Ml Vial) 25 mcg IVPUSH Q5M PRN; Protocol PRN Reason: Pain, Moderate (Pain Scale 4-6 Ferrous Sulfate (Ferrous Sulfate 324 Mg Tablet.) 324 mg PO BID [facility] Last Admin: 05/21/21 08:24 Dose: 324 mg Documented by: JAE Hydromorphone HCl (Hydromorphone Hcl 0.5 Mg/0.5 Ml Syringe) 0.5 mg IVPUSH Q4H PRN; Protocol PRN Reason: Pain, Severe (Pain Scale 7-10) Promethazine HCl 12.5 mg/ (Sodium Chloride) 50.5 mls @ 202 mls/hr IV ONCE PRN PRN Reason: Nausea and Vomiting Ceftriaxone Sodium 1 gm/ (Sodium Chloride) 50 mls @ 100 mls/hr IV Q24H [facility] Last Admin: 05/21/21 08:26 Dose: 100 mls/hr Documented by: JAE Sodium Chloride (Ns) 1,000 mls @ 125 mls/hr IVCONT .Q8H [facility] Last Admin: 05/21/21 05:03 Dose: 125 mls/hr Documented by: LOIS Ceftriaxone Sodium 1 gm/ (Sodium Chloride) 50 mls @ 100 mls/hr IV Q24H [facility] Last Infusion: 05/20/21 11:33 Dose: 0 mls/hr Documented by: JAE Omeprazole (Omeprazole 20 Mg Capsule.) 20 mg PO DAILY@0630 [facility] Last Admin: 05/21/21 08:25 Dose: 20 mg Documented by: JAE Ondansetron HCl (Ondansetron Hcl 4 Mg/2 Ml Vial) 4 mg IVPUSH Q8H PRN PRN Reason: Nausea and Vomiting Oxycodone HCl (Oxycodone Hcl Immed Release 5 Mg Tablet) 20 mg PO TID PRN PRN Reason: severe pain Last Admin: 05/21/21 08:25 Dose: 20 mg Documented by: JAE Pharmacy Consult (Consult Rx Perform Med Rec) 1 each MISCELLANE ONCE PRN PRN Reason: Consult order Prednisone (Prednisone 10 Mg Tablet) 10 mg PO DAILY [facility] Last Admin: 05/21/21 08:25 Dose: 10 mg Documented by: JAE Sodium Chloride (0.9 % Sodium Chloride Flush 3 Ml Syringe) 3 ml IVFLUSH QSHIFT [facility] Last Admin: 05/21/21 08:26 Dose: 3 ml Documented by: JAE Sodium Zirconium Cyclosilicate (Sodium Zirconium Cyclosilicate 10 Gm Powd.Pack) 5 gm PO DAILY [facility] Last Admin: 05/21/21 08:26 Dose: 5 gm Documented by: JAE Zolpidem Tartrate (Zolpidem Tartrate 5 Mg Tablet) 10 mg PO BEDTIME PRN PRN Reason: insomnia Labs CBC & Chem 7: 05/21/21 05:38 05/21/21 05:38 Labs: Laboratory Results - last 24 hr 05/20/21 05/20/21 05/20/21 09:44 10:14 19:29 MCV MCH MCHC RDW Plt Count MPV Absolute Nucleated RBC Nucleated RBC % (auto) Anion Gap 16 Estim Creat Clear Calc 13.8 Estimated GFR 10 POC Glucose 127 H 113 Random Glucose 121 H Calcium 8.1 L 05/21/21 05/21/21 05/21/21 05:38 05:38 07:37 MCV 89.6 MCH 26.8 L MCHC 29.9 L RDW 15.6 Plt Count 139 L MPV 11.4 Absolute Nucleated RBC 0.000 Nucleated RBC % (auto) 0.0 Anion Gap 14 Estim Creat Clear Calc 19.1 Estimated GFR 14 POC Glucose 109 Random Glucose 136 H Calcium 8.1 L Microbiology Microbiology Results: Microbiology 05/19/21 13:15 Urine Culture - Final Urine Catheterized - Molina Catheter 05/19/21 07:33 Blood Culture - Preliminary Blood - Venous No growth after 24 hours. 05/19/21 07:16 Blood Culture - Preliminary Blood - Venous No growth after 24 hours. 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 # ZINA and CKD stage III ?? most likely secondary to right hydroureteronephrosis , urine culture negative will DC IV ceftriaxone ?? status post resolution of obstruction with stent placement ?? continue IV fluid making urine, creatinine trending down gradually, follow BMP Being followed by Nephrology # hyperkalemia ?? secondary to acute kidney failure, no EKG changes ?? Potassium improved from 6.8 -5 this am ?? treated with insulin, glucose, calcium gluconate, and Kayexalate ?? Continue Lokelma, Follow BMP # hypertensive crisis ? ? Noted to have elevated blood pressure, on atenolol 25 mg and Norvasc 5 mg daily at home Treated with hydralazine 50 mg yesterday will increase dose of atenolol to 100 mg and Norvasc to 10 mg daily case discussed with Nephrology # hematuria ?? secondary to cancer , status post right stent placement 05/19/21, follow H&H and Urology follow up ?? Hematocrit stable # dermatitis ?? Patient has chronic rash being followed by [employer] crm developer and primary care physician with prednisone 10 mg daily, frequently takes prednisone high-dose with tapering . # chronic back pain due to bladder tumor continue home analgesics takes oxycodone 20 mg t.i.d. # normocytic anemia likely due to chronic kidney disease # obesity, low calorie diet recommended DVT prophylaxis: SCDs due to hematuria Quality Stroke Does the patient have a stroke diagnosis?: No VTE Prior VTE?: No VTE Risk Level:: Medical - moderate - high VTE Device Contraindication: N/A - Device Ordered VTE Drug Contraindication: Treatment Not Indicated
[2021-05-21] MEDS: atenoloL 25 MG TABLET 75 MG PO (10:37)
[2021-05-21 11:30] LABS: Glucose, Whole Blood 122 mg/dL (60-115)
[2021-05-21] MEDS: diphenhydrAMINE HCL 25 MG TABLET PO (12:17)
[2021-05-21] MEDS: Zolpidem Tartrate 5 MG TABLET 10 MG PO (19:57)
[2021-05-22 03:23] VITALS: BP 147/67; PULSE 67; RESP 18; TEMP 36.9; O2SAT 93
[2021-05-22] MEDS: oxyCODONE HCl Immed Release 5 MG TABLET 20 MG PO ×3 (06:40→21:05)
[2021-05-22] MEDS: 0.9 % Sodium Chloride 1,000 ML 125 ML IVCONT ×2 (06:40→11:14)
[2021-05-22 06:54] LABS: Hematocrit 34.1 % (42.0-52.0); Hemoglobin 10.2 g/dl (14.0-18.0); Mean Corpuscular HGB Conc 29.9 g/dl (31.0-36.0); Mean Corpuscular Hemoglobin 27.2 pg (27.0-33.0); Mean Corpuscular Volume 90.9 fL (80.0-98.0); Mean Platelet Volume 10.9 fL (9.4-12.4); Platelet Count 169 X10*3/uL (160-400); Red Blood Count 3.75 X10*6/uL (4.60-5.80); Red Cell Distribution Width 15.5 % (11.0-16.0); White Blood Count 6.9 X10*3/uL (4.8-10.8)
[2021-05-22 07:17] LABS: Anion Gap 16 (12-20); Blood Urea Nitrogen 35 mg/dL (9-16); Calcium 8.3 mg/dL (8.4-10.2); Carbon Dioxide 23 mmol/L (22-29); Chloride 111 mmol/L (96-108); Creatinine Clr Calc Pharmacy 24.8; Estimated Glomerular Filt Rate 20; Glucose Random 142 mg/dL (60-115); Potassium 4.7 mmol/L (3.3-5.1); Sodium 145 mmol/L (135-145)
[2021-05-22 07:41] VITALS: BP 156/74; PULSE 67; RESP 67; TEMP 36.7; O2SAT 98
[2021-05-22] MEDS: 0.9 % Sodium Chloride Flush 3 ML SYRINGE IVFLUSH ×3 (09:08→20:14)
[2021-05-22] MEDS: Ferrous Sulfate 324 MG TABLET.DR PO ×2 (09:09→20:14)
[2021-05-22] MEDS: predniSONE 10 MG TABLET PO (09:09)
[2021-05-22] MEDS: amLODIPine Besylate 10 MG TABLET PO (09:09)
[2021-05-22] MEDS: atenoloL 100 MG TABLET PO (09:09)
[2021-05-22] MEDS: Sodium Zirconium Cyclosilicate 10 GM POWD.PACK 5 GM PO (09:14)
[2021-05-22] MEDS: Calamine/Zinc Oxide LOTION 177 ML BOTTLE 1 APPL TOPICAL (09:14)
--- NOTE | 2021-05-22 11:04 | HO.PM.IMPN ---
Subjective Subjective Date of Service: 05/22/21 Interval History: seen and examined this AM reports pain overall improved, but still not at his baseline denies any cp or sob Review of Systems negative except HPI Physical Exam Vital Signs: Vital Signs: Last Vital Signs Temp 98.0 F 05/22/21 07:41 Pulse 67 05/22/21 07:41 Resp 67 H 05/22/21 07:41 BP 156/74 H 05/22/21 07:41 Pulse Ox 98 05/22/21 07:41 Oxygen Flow Rate 2 05/19/21 20:27 Body Mass Index 35.6 Const: Other: General - no acute distress, appears comfortable Cardiovascular - regular rate and rhythm, S1-S2 Lungs - normal respiratory effort, clear to auscultation bilaterally, no wheezing Abdomen - soft, nontender, no rebound or guarding Extremities - no edema bilaterally Neuro - awake and alert, no focal deficits - graves with punch colored urine Objective Data Active Medications Acetaminophen (Acetaminophen 325 Mg Tablet) 650 mg PO Q6H PRN PRN Reason: Pain, Mild (Pain Scale 1-3) Albuterol Sulfate (Albuterol Sulfate (0.083%) 2.5 Mg/3 Ml Vial.Neb) 2.5 mg INHALE ONCE PRN PRN Reason: Wheezing Albuterol Sulfate (Albuterol Sulfate 90 Mcg 8 Gm Inhaler) 2 puff INHALE Q4H PRN PRN Reason: Wheezing Amlodipine Besylate (Amlodipine Besylate 10 Mg Tablet) 10 mg PO DAILY BALA; Protocol Last Admin: 05/22/21 09:09 Dose: 10 mg Documented by: HUSSAIN Atenolol (Atenolol 100 Mg Tablet) 100 mg PO DAILY BALA; Protocol Last Admin: 05/22/21 09:09 Dose: 100 mg Documented by: HUSSAIN Calamine (Calamine/Zinc Oxide Lotion 177 Ml Bottle) 1 appl TOPICAL Q3H PRN; Protocol PRN Reason: itchiness Last Admin: 05/22/21 09:14 Dose: 1 appl Documented by: HUSSAIN Calamine (Calamine/Zinc Oxide Lotion 177 Ml Bottle) 1 appl TOPICAL DAILY BALA; Protocol Last Admin: 05/22/21 09:18 Dose: Not Given Documented by: HUSSAIN Non-Admin Reason: Previously Administered Dextrose (Dextrose 50 % 25 Gm/50 Ml Vial) 25 gm IVPUSH Q15M PRN PRN Reason: per Hypoglycemia Standing Ord. Last Admin: 05/20/21 08:18 Dose: 25 gm Documented by: JAE Diphenhydramine HCl (Diphenhydramine Hcl 25 Mg Tablet) 25 mg PO Q12H PRN PRN Reason: Itching Last Admin: 05/21/21 12:17 Dose: 25 mg Documented by: JAE Docusate Sodium (Docusate Sodium 100 Mg Capsule) 100 mg PO DAILY PRN PRN Reason: Constipation Fentanyl (Fentanyl Citrate/Pf 100 Mcg/2 Ml Vial) 25 mcg IVPUSH Q5M PRN; Protocol PRN Reason: Pain, Moderate (Pain Scale 4-6 Ferrous Sulfate (Ferrous Sulfate 324 Mg Tablet.) 324 mg PO BID ON LICENSE OF [facility] Last Admin: 05/22/21 09:09 Dose: 324 mg Documented by: HUSSAIN Hydromorphone HCl (Hydromorphone Hcl 0.5 Mg/0.5 Ml Syringe) 0.5 mg IVPUSH Q4H PRN; Protocol PRN Reason: Pain, Severe (Pain Scale 7-10) Promethazine HCl 12.5 mg/ (Sodium Chloride) 50.5 mls @ 202 mls/hr IV ONCE PRN PRN Reason: Nausea and Vomiting Last Infusion: 05/21/21 12:37 Dose: 0 mls/hr Documented by: JAE Sodium Chloride (Ns) 1,000 mls @ 125 mls/hr IVCONT .Q8H ON LICENSE OF [facility] Last Admin: 05/22/21 06:40 Dose: 125 mls/hr Documented by: MIGUEL Promethazine HCl 12.5 mg/ (Sodium Chloride) 50.5 mls @ 202 mls/hr IV Q6H PRN PRN Reason: Nausea Omeprazole (Omeprazole 20 Mg Capsule.) 20 mg PO DAILY@0630 ON LICENSE OF [facility] Last Admin: 05/21/21 08:25 Dose: 20 mg Documented by: JAE Oxycodone HCl (Oxycodone Hcl Immed Release 5 Mg Tablet) 20 mg PO TID PRN PRN Reason: severe pain Last Admin: 05/22/21 06:40 Dose: 20 mg Documented by: MIGUEL Pharmacy Consult (Consult Rx Perform Med Rec) 1 each MISCELLANE ONCE PRN PRN Reason: Consult order Prednisone (Prednisone 10 Mg Tablet) 10 mg PO DAILY ON LICENSE OF [facility] Last Admin: 05/22/21 09:09 Dose: 10 mg Documented by: HUSSAIN Sodium Chloride (0.9 % Sodium Chloride Flush 3 Ml Syringe) 3 ml IVFLUSH QSHIFT ON LICENSE OF [facility] Last Admin: 05/22/21 09:08 Dose: 3 ml Documented by: HUSSAIN Sodium Zirconium Cyclosilicate (Sodium Zirconium Cyclosilicate 10 Gm Powd.Pack) 5 gm PO DAILY ON LICENSE OF [facility] Last Admin: 05/22/21 09:14 Dose: 5 gm Documented by: HUSSAIN Zolpidem Tartrate (Zolpidem Tartrate 5 Mg Tablet) 5 mg PO BEDTIME PRN PRN Reason: insomnia Labs CBC & Chem 7: 05/22/21 06:44 05/22/21 06:44 Labs: Laboratory Results - last 24 hr 05/21/21 05/22/21 05/22/21 11:25 06:44 06:44 MCV 90.9 MCH 27.2 MCHC 29.9 L RDW 15.5 Plt Count 169 MPV 10.9 Absolute Nucleated RBC 0.000 Nucleated RBC % (auto) 0.0 Anion Gap 16 Estim Creat Clear Calc 24.8 Estimated GFR 20 POC Glucose 122 H Random Glucose 142 H Calcium 8.3 L Microbiology Microbiology Results: Microbiology 05/19/21 07:33 Blood Culture - Preliminary Blood - Venous No growth after 48 hours. 05/19/21 07:16 Blood Culture - Preliminary Blood - Venous No growth after 48 hours. 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 1. ZINA and CKD stage III, hyperkalemia secondary to obstructive uropathy from suspected bladder Ca s/p stent placement with improvement in renal function SCr below 4 now, continue IV hydration today Nephrology and urology both on board hyperK resolved 2. Hematuria -- secondary to bladder Ca punch colored urine h/h stable graves in place, to d/w urology -- but likely d/c with it in place 3. HTN crisis worsned by his pain on norvasc 10mg, atenolol 100mg - BP trend improved nephrology helping manage 4. 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 Acute on Chronic back pain -- secondary to bladder Ca continue oxycodone 20mg TID (outpatient dose) with IV dilaudid for breakthrough pain 6. normocytic anemia, no sigifniciant blood loss anemia likely due to chronic kidney disease 7.obesity low calorie diet recommended Full Code DVT pptx, SCD dispo: anticipiate home next 24-48 hours Quality Stroke Does the patient have a stroke diagnosis?: No VTE Prior VTE?: No VTE Risk Level:: Medical - moderate - high VTE Device Contraindication: N/A - Device Ordered VTE Drug Contraindication: Treatment Not Indicated
[2021-05-22 11:16] VITALS: BP 163/71; PULSE 62; RESP 18; TEMP 36.6; O2SAT 95
[2021-05-22 12:06] LABS: Glucose, Whole Blood 87 mg/dL (60-115)
--- NOTE | 2021-05-22 12:20 | MHC.CM.PN ---
per rounds pt to be dcd home on saturday plan remains home no servceis
[2021-05-22 15:21] VITALS: BP 154/71; PULSE 88; RESP 20; TEMP 36.8; O2SAT 95
[2021-05-22 19:23] VITALS: PULSE 88; RESP 20; TEMP 37; O2SAT 99
[2021-05-22] MEDS: Zolpidem Tartrate 5 MG TABLET PO (21:06)
--- NOTE | 2021-05-22 22:30 | PM.PNNEP ---
Subjective Subjective Date of Service: 05/22/21 Interval history: seen and examined this AM denies any cp or sob Physical Exam Vital Signs: Vital Signs: Last Vital Signs Temp 98.6 F 05/22/21 19:23 Pulse 88 05/22/21 19:23 Resp 20 05/22/21 19:23 BP 154/71 H 05/22/21 15:21 Pulse Ox 99 05/22/21 19:23 Oxygen Flow Rate 2 05/19/21 20:27 Body Mass Index 35.6 Other:??General - no acute distress, appears comfortable Cardiovascular - regular rate and rhythm, S1-S2 Lungs - normal respiratory effort, clear to auscultation bilaterally, no wheezing Abdomen - soft, nontender, no rebound or guarding Extremities - no edema bilaterally Neuro - awake and alert, no focal deficits - graves with punch colored urine Objective Data Labs CBC & Chem 7: 05/22/21 06:44 05/22/21 06:44 Labs: Laboratory Results - last 24 hr 05/20/21 05/22/21 05/22/21 17:02 06:44 06:44 WBC 6.9 RBC 3.75 L Hgb 10.2 L Hct 34.1 L MCV 90.9 MCH 27.2 MCHC 29.9 L RDW 15.5 Plt Count 169 MPV 10.9 Absolute Nucleated RBC 0.000 Nucleated RBC % (auto) 0.0 Sodium 145 Potassium 4.7 Chloride 111 H Carbon Dioxide 23 Anion Gap 16 BUN 35 H Creatinine 3.17 H Estim Creat Clear Calc 24.8 Estimated GFR 20 POC Glucose 87 Random Glucose 142 H Calcium 8.3 L Microbiology Microbiology Results: Microbiology 05/19/21 07:33 Blood - Venous Blood Culture - Preliminary No growth after 48 hours. 05/19/21 07:16 Blood - Venous Blood Culture - Preliminary No growth after 48 hours. 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 ZINA Due to moderate right hydroureteronephrosis 2. Status post rt.ureteral stenting 3. distal ureteric obstruction in setting of recurrent bladder cancer. 4. CKD stage III 5. Hyperkalemia hyperK resolved HAs post obstructive diuresis IVF 124 ml/ Hr F/u H/ H graves in place- f/u with urology Continue BP meds D/c'd Falguni Thx Will follow Dr. Alex Time Spent With Patient Time: Total time spent is greater than 50% in coordination of care (as documented) at patient's floor/unit and/or counseling patient: Progress Note: Quality Stroke Does the patient have a stroke diagnosis?: No
[2021-05-23] VITALS (7 sets, daily range): BP systolic 165–190; BP diastolic 72–84; PULSE 60–70; RESP 18–20; TEMP 36.4–37.1; O2SAT 94–95
[2021-05-23] MEDS: oxyCODONE HCl Immed Release 5 MG TABLET 20 MG PO (06:11)
[2021-05-23] MEDS: Omeprazole 20 MG CAPSULE.DR PO (06:12)
[2021-05-23 06:49] LABS: Anion Gap 13 (12-20); Blood Urea Nitrogen 34 mg/dL (9-16); Calcium 8.6 mg/dL (8.4-10.2); Carbon Dioxide 24 mmol/L (22-29); Chloride 111 mmol/L (96-108); Creatinine Clr Calc Pharmacy 32.5; Estimated Glomerular Filt Rate 27; Glucose Random 101 mg/dL (60-115); Potassium 4.5 mmol/L (3.3-5.1); Sodium 143 mmol/L (135-145)
[2021-05-23] MEDS: 0.9 % Sodium Chloride Flush 3 ML SYRINGE IVFLUSH (08:36)
[2021-05-23] MEDS: predniSONE 10 MG TABLET PO (08:36)
[2021-05-23] MEDS: atenoloL 100 MG TABLET PO (08:36)
[2021-05-23] MEDS: amLODIPine Besylate 10 MG TABLET PO (08:37)
[2021-05-23] MEDS: Ferrous Sulfate 324 MG TABLET.DR PO (08:37)
--- NOTE | 2021-05-23 09:47 | MHC.CM.PN ---
pt to be dcd today no skilled servceis orderd by
--- NOTE | 2021-05-23 11:02 | P.DS_ITS ---
DS: Providers Provider Date of Service: 05/23/21 Date of admission: 05/19/21 22:01 Primary care physician: Nelson Pineda MD Consults: 05/20/21 05:53 Consult to Urology Routine Consulting Provider: Ravi Pritchard Reason for consultation: obstructing ureter stone Has provider been notified: Yes 05/20/21 07:05 Consult to Nephrology Routine Consulting Provider: [facility] Reason for consultation: ZINA on CKD Has provider been notified: No DS: Diagnosis Discharge Diagnosis (1) Acute kidney injury: (2) Hyperkalemia: (3) CKD (chronic kidney disease), stage III: Status: Acute (4) Hematuria: (5) Hypertension, uncontrolled: (6) Anemia in chronic kidney disease (CKD): Status: Acute (7) Obesity (BMI 30-39.9): Status: Acute (8) Dermatitis: DS: Summary Hospital Course Hospital Course: From the admission HPI: this is a 71-year-old gentleman with underlying history of urothelial cancer status post prior left nephroureterectomy, underlying bipolar disorder, CKD, obesity, diabetes mellitus being evaluated for right-sided abdominal discomfort, hematuria, and hypertension.?Patient is oriented to self but not to place or time. very confused. not sure why he is being in the hospital.? Patient has had CT abdomen that demonstrated right-sided hydronephrosis.? on initial arrival to the hospital pt found to be significantly hypertensive and managed in the ED initially with bp of 204/105. Pt was taken to OR for ureteral stenting and now pt is confused but graves cath has bloody urine and pt is confused. I cannot get ROS as pt is confused Vitals post procedure shows a temperature of 98.7?, heart rate of 85, respiratory rate of 18, blood pressure 132/66 satting 94% on 2 L of nasal cannula Labs are significant for hemoglobin of 10.2 that dropped from 11.7, hematocrit of 33.4, potassium 6.0, no EKG changes.? A on of 43, creatinine of 6.37 which worsened from 4.6 on arrival to the hospital, baseline of around 1.8 , UA showed UTI CT abd showed moderate right hydro ureteral nephrosis, suspicious for obstruction in the region of the urethra vascular junction.? She this could be malignant or secondary to blood clot in the setting of hematuria.? No obstructing calculus seen.? Status post left nephrectomy.? Hospital Course: Patient presented with hematuria and pain. He was diagnosed with ZINA on CKD stage 3 secondary to obstructive uropathy - secondary to clot vs malignancy. He was found to be in hypertensive urgency and was also hyperkalemic. He was seen in consultation with urology and underwent: Cystoscopy, clot evacuation, right retrograde, double stent placement. He was treated with IV hydration and with these two measures his renal function improved towards his baseline and his hyperkalemia resolved. Patient needs to follow up with Dr. Mena in 1 weeks time ([facility]). Patients graves catether has been removed and he has passed his voiding trial. Patients hospital course was complicated by uncontrolled HTN. His atenolol was increased from 25mg to 100mg. Norvasc 10 mg and hydralazine 25mg TID were initiated. He should f/u with PCP for further uptitration as although his BP trend has improved, it is far from ideal. Time Spent with Patient Time attestation: Total time spent providing and/or coordinating discharge services: Discharge coordination time: Greater than 30 minutes Quality: Stroke Does the patient have a stroke diagnosis?: No Physical Exam Vital Signs: Vital Signs: Last Vital Signs Temp 97.7 F 05/23/21 07:32 Pulse 70 05/23/21 08:37 Resp 18 05/23/21 07:32 BP 184/84 H 05/23/21 08:37 Pulse Ox 94 05/23/21 07:32 Oxygen Flow Rate 2 05/19/21 20:27 Body Mass Index 35.6 Const: Other: General - no acute distress, appears comfortable Cardiovascular - regular rate and rhythm, S1-S2 Lungs - normal respiratory effort, clear to auscultation bilaterally, no wheezing Abdomen - soft, nontender, no rebound or guarding Extremities - no edema bilaterally Neuro - awake and alert, no focal deficits DS: Data Data Completed and Pending Labs on day of discharge: Laboratory Results - last 24 hr 05/20/21 05/23/21 17:02 06:06 Sodium 143 Potassium 4.5 Chloride 111 H Carbon Dioxide 24 Anion Gap 13 BUN 34 H Creatinine 2.42 H Estim Creat Clear Calc 32.5 Estimated GFR 27 POC Glucose 87 Random Glucose 101 Calcium 8.6 Preliminary micro results at discharge 05/19/21 07:33 Blood Culture - Preliminary Blood - Venous No growth after 48 hours. 05/19/21 07:16 Blood Culture - Preliminary Blood - Venous No growth after 48 hours. Discharge Plan Discharge Patient Disposition: Home, Self-Care Discharge Diagnosis: ZINA, Obstructive uropathy Referrals: Nelson Pineda MD [Primary Care Provider] - 1 Week Thomas Mena MD [Physician] - 1 Week Discharge Medications: New atenolol 100 mg Tablet 100 mg PO DAILY Qty: 30 RF: 0 amlodipine 10 mg Tablet 10 mg PO DAILY Qty: 30 RF: 0 hydralazine 25 mg tablet 25 mg PO TID Qty: 90 RF: 0 Continued zolpidem 10 mg tablet 10 mg PO BEDTIME PRN (Reason: insomnia) 30 Days Qty: 30 RF: 1 ferrous sulfate 325 mg (65 mg iron) tablet 1 tab PO BID RF: 0 albuterol sulfate [Ventolin HFA] 90 mcg/actuation HFA aerosol inhaler 2 puff inhalation Q4H PRN (Reason: Wheezing) RF: 0 acetaminophen 325 mg Tablet 650 mg PO Q6H PRN (Reason: Pain) RF: 0 oxycodone 20 mg tablet 1 tab PO TID PRN (Reason: severe pain) Qty: 30 RF: 0 prednisone 10 mg tablet 10 mg PO DAILY RF: 0 Discontinued ibuprofen 600 mg tablet 600 mg PO Q6H PRN (Reason: for fever) Qty: 120 RF: 0 atenolol 25 mg tablet 1 tab PO DAILY RF: 0 No Action oxycodone 20 mg tablet 20 mg PO .COMPLEX PRN (Reason: SEVERE PAIN) 28 Days Qty: 84 RF: 0 Discharge Orders: Discharge Order (Routine); Ordered 05/23/21 Ordered By: Rolando Ma Diet: advance to usual diet and low salt diet Activity on Discharge: As tolerated Stand Alone Forms: Patient Portal Discharge page Care Plan Goals: To continue treatment for bladder cancer Health Concerns: Bladder Cancer Kindey injury High blood pressure Plan of Treatment: Follow up with your urologist -- you need to be seen in 1 to 2 weeks. Your kidney numbers have improved. Do not take ibuprofen Your blood pressure medications have changed. You are now taking Atenolol 100mg (you were on 25mg) and Amlodipine 10mg, hydralazine 25mg TID Assessment: see d/c summary Discharge Date/Time: 05/23/21 14:19
[2021-05-23] MEDS: hydrALAZINE HCl 25 MG TABLET PO (12:51)
== END 2021-05-23 14:19 | disposition home or self-care (01) | DRG 660 ==
LOC: HO.ED 22:01 → HO.IMC 22:37
PROVIDERS: Hospitalist; Internal Medicine; Internal Medicine Nephrology; Admitting Provider Urology; Emergency Provider Emergency Medicine; PCP Internal Medicine; Visit Provider Family Medicine
PROC: 0T768DZ Dilation of Right Ureter with Intraluminal Device, Via Natural or Artificial Opening Endoscopic (ICD-10-PCS; principal; 2021-05-19 16:30)
DX: N13.6 Pyonephrosis (principal); C65.2 Malignant neoplasm of left renal pelvis; C79.19 Secondary malignant neoplasm of other urinary organs; I16.9 Hypertensive crisis, unspecified; N17.9 Acute kidney failure, unspecified; Z20.822 Contact with and (suspected) exposure to COVID-19; F31.9 Bipolar disorder, unspecified; E11.649 Type 2 diabetes mellitus with hypoglycemia without coma; I12.9 Hypertensive chronic kidney disease with stage 1 through stage 4 chronic kidney disease, or unspecified chronic kidney disease; R31.9 Hematuria, unspecified; E87.5 Hyperkalemia; E66.9 Obesity, unspecified; Z68.35 Body mass index [BMI] 35.0-35.9, adult; D63.1 Anemia in chronic kidney disease; N18.30 Chronic kidney disease, stage 3 unspecified; L30.9 Dermatitis, unspecified; E11.22 Type 2 diabetes mellitus with diabetic chronic kidney disease; G89.3 Neoplasm related pain (acute) (chronic); Z88.6 Allergy status to analgesic agent; Z79.52 Long term (current) use of systemic steroids; Z79.899 Other long term (current) drug therapy
CPT/HCPCS: 36415; 51798; 74176; 80048; 80053; 81001; 82947; 85014; 85018; 85025; 85027; 87040; 87086; 87635; 93005; 96361; 96374; 96375; 96376; 99285; C1758; C1769; C2617; J0610; J0696; J1170; J1956; J2060; J2270; J2405; J2550; J3010; Q0163; Q9967

== ENCOUNTER 2021-07-02 13:50 | Emergency (ER) | payer MEDICARE, MEDICAID, SELFPAY | END 2021-07-02 17:42 | disposition left against medical advice (07) | PROVIDERS: Emergency Provider Emergency Medicine | DX: R50.9 Fever, unspecified (principal); R11.10 Vomiting, unspecified ==

== ENCOUNTER 2021-11-16 02:43 | Emergency (ER) | payer MEDICARE, MEDICAID, SELFPAY ==
--- NOTE | ~2021-11-16 | XR_ITS ---
EXAMINATION: XR CHEST CLINICAL INFORMATION: Chest pain COMPARISON: 01/28/2020 TECHNIQUE: Frontal view of the chest was obtained. FINDINGS: Elevated right hemidiaphragm. This is new from prior radiographs. No consolidation, edema, or effusion. No pneumothorax. The cardiomediastinal silhouette is within normal limits. XR/XR chest 1V IMPRESSION: Elevated right hemidiaphragm. No acute pulmonary finding.
--- NOTE | 2021-11-16 02:52 | ECG_ITS ---
Test Reason : CHEST PAIN Blood Pressure : / mmHG Vent. Rate : 067 BPM Atrial Rate : 067 BPM P-R Int : 202 ms QRS Dur : 102 ms QT Int : 420 ms P-R-T Axes : 040 -06 029 degrees QTc Int : 443 ms Normal sinus rhythm Normal ECG When compared with ECG of 20-MAY-2021 00:48, Nonspecific T wave abnormality has replaced inverted T waves in Inferior leads Referred By: China Shipman Electronically Signed By:TRAV ELLIOTT
[2021-11-16 03:04] VITALS: BP 125/32; PULSE 63; RESP 13; TEMP 36.8; O2SAT 99; BMI 27.7
--- NOTE | 2021-11-16 03:23 | ED_ITS ---
HPI - Chest Pain General Chief Complaint: Chest Pain Stated Complaint: Chest pain Time Seen by Provider: 11/16/21 03:21 Source: patient and EMS Mode of arrival: EMS Limitations: no limitations History of Present Illness HPI narrative: 71 year-old male came in by ambulance for evaluation of chest pain. Chest pain started about 2 hours before arrival while patient was sleeping, pain was described as dull aching pain to the mid chest, no radiation, lasted for about 5 minutes, pain was 5/10, patient declined any other associated symptoms in particular no shortness of breath, no sweating, no fever, no chills. Related Data Home Medications Medication Instructions Recorded Confirmed acetaminophen 325 mg tablet 650 mg PO Q6H PRN 05/19/21 09/04/21 albuterol sulfate 90 mcg/actuation 2 puff INHALATION Q4H PRN 05/19/21 09/04/21 aerosol inhaler (Ventolin HFA) ferrous sulfate 325 mg (65 mg 1 tab PO BID 05/19/21 09/04/21 iron) tablet Previous Rx's Medication Instructions Recorded hydralazine 25 mg tablet 25 mg PO TID #90 tab 05/23/21 prednisone 10 mg tablet 10 mg PO DAILY #20 tab 05/29/21 atenolol 100 mg tablet 100 mg PO DAILY #30 tab 09/10/21 zolpidem 10 mg tablet 10 mg PO BEDTIME PRN 30 Days #30 10/25/21 tab oxycodone 20 mg tablet 20 mg PO .COMPLEX PRN 28 Days #84 11/11/21 tab amlodipine 5 mg tablet 5 mg PO DAILY #90 tab 11/13/21 Allergies Allergy/AdvReac Type Severity Reaction Status Date / Time piperacillin [From ZOSYN] Allergy Intermediate REDNESS/WARMTH Verified 09/04/21 14:07 TO IV SITE. tazobactam [From ZOSYN] Allergy Intermediate REDNESS/WARMTH Verified 09/04/21 14:07 TO IV SITE. ibuprofen Allergy Unknown Unknown Verified 09/04/21 14:07 lamotrigine [Lamictal] Allergy Unknown Unknown Verified 09/04/21 14:07 Anti-Inflammatory Enzyme Allergy Unknown rash on Uncoded 09/04/21 14:07 both legs Review of Systems Review of Systems: All other systems are reviewed and are negative Constitutional: Reports as per HPI and Reports no additional constitutional complaints Eyes: Reports as per HPI and Reports no additional eye complaints Reports system reviewed and no additional complaints, except as documented Cardiovascular: Reports as per HPI and Reports no additional cardiovascular complaints Respiratory: Reports as per HPI and Reports no additional respiratory complaints Gastrointestinal: Reports as per HPI and Reports no additional gastrointestinal complaints Genitourinary: Reports no additional female genitourinary complaints Musculoskeletal: Reports no additional musculoskeletal complaints Skin/Breast: Reports system reviewed and no additional complaints, except as docu Psychiatric: Reports no additional psychiatric complaints Endocrine: Reports no additional endocrine complaints Hematologic/Lymphatic: Reports no additional hematologic/lymphatic complaints Allergic/Immunologic: Reports no additional allergic/immunologic complaints Reports system reviewed and no additional complaints, except as documented and Reports Abnormal speech present [facility] Past Medical History 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 Chronic kidney disease (CKD), stage III (moderate) Dermatitis Hematuria Hematuria HLD (hyperlipidemia) HTN (hypertension) Hydronephrosis Hyperkalemia Hypertension Hypertension, uncontrolled Insomnia Lumbar degenerative disc disease Metabolic encephalopathy Obesity (BMI 30-39.9) Pruritic erythematous rash 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 Social History Social History Household Members: None Housing: House Do you presently have visiting nurse or other home services: No Alcohol intake: never Patient Tobacco Use Status: Never used Tobacco Second Hand Smoke Exposure: No Use of substances other than those prescribed or required for medical reasons: No Advance Directives: No service: No Current occupational status: disabled Physical Exam Vital Signs: Vital Signs: Last Vital Signs Temp 98.2 F 11/16/21 03:04 Pulse 63 11/16/21 06:37 Resp 14 11/16/21 06:37 BP 129/39 L 11/16/21 06:37 Pulse Ox 98 11/16/21 06:37 BMI result Body Mass Index 27.7 Vital signs have been reviewed as appeared to be correct. Blood pressure normal. Heart rate normal. Respiration rate normal. Temperature normal. Oxygen saturation normal. Appearance: Alert. Oriented X3. No acute distress. Head: Normal external exam. Normocephalic. Atraumatic. No Hardwick signs noted. No raccoon eyes noted Eyes: PERRLA. EOMI. Conjunctiva and sclera normal. Eyelids normal. ENT: TM's Normal. Pharynx normal. Uvula midline. Moist mucous membranes. No trismus noted. No drooling noted. No muffled voice noted. Neck: Normal inspection. Neck supple. FROM. No adenopathy. Thyroid Normal. No meningeal signs. No neck mass noted. CVS: Normal heart rate and rhythm. Heart sound normal. No murmurs noted. Pulses normal throughout. Respiratory: No respiratory distress. Painless inspiration. Breath sounds normal. No wheezes/rales/rhonchi noted. Chest nontender. No accessory muscle usage noted or decreased air movement noted. Abdomen: Soft and nontender. Urostomy back to the right abdomen with clear urine, no abdominal tenderness, no guarding. Back: No CVA tenderness. Full range of motion noted. Skin: Skin warm and dry. Normal skin color. Normal skin turgor. No rashes/lesions/lacerations noted. Extremities: No lower extremity edema. Extremities exhibit normal range of motion. Extremities nontender. Neuro: Oriented X 3. Cranial nerve exam: II-XII are grossly intact No motor deficit. No sensory deficit. Reflexes normal. Course Course Course Narrative: Assessment and plan. 71year-old male came in for evaluation of chest pain, patient is chest pain-free now, no symptoms, EKG is unremarkable, 2 troponin negative, patient HEART score is 3 patient will be safe to go home. [facility] - Chest Pain Lab Data Attestation: I reviewed the patient's lab results. Result diagrams: 11/16/21 03:59 11/16/21 03:59 Labs: Lab Results 11/16/21 11/16/21 11/16/21 Range/Units 03:59 03:59 04:00 WBC 4.5 L (4.8-10.8) X10*3/uL RBC 3.52 L (4.60-5.80) X10*6/uL Hgb 8.7 L (14.0-18.0) g/dl Hct 29.4 L (42.0-52.0) % MCV 83.5 (80.0-98.0) fL MCH 24.7 L (27.0-33.0) pg MCHC 29.6 L (31.0-36.0) g/dl RDW 15.9 (11.0-16.0) % Plt Count 118 L D (160-400) X10*3/uL MPV 12.4 (9.4-12.4) fL Immature Gran % (Auto) 0.7 H (0.0-0.4) % Neut % (Auto) 73.7 H (45-73) % Lymph % (Auto) 14.4 L (20-40) % [place] % (Auto) 9.0 (2-11) % Eos % (Auto) 2.0 (0-4) % Baso % (Auto) 0.2 (0-2) % Lymph # (Auto) 0.6 L (1.2-4.9) X10*3/uL [place] # (Auto) 0.4 (0.1-1.2) X10*3/uL Eos # (Auto) 0.1 (0.0-0.4) X10*3/uL Baso # (Auto) 0.0 (0.0-0.2) X10*3/uL Abs Immat Gran (auto) 0.03 (0.00-0.03) X10*3/uL Absolute Neuts (auto) 3.3 (2.0-8.3) x10*3/uL Absolute Nucleated RBC 0.000 (0.0-0.012) X10*3/uL Nucleated RBC % (auto) 0.0 (0.0-0.2) /100WBC Sodium 138 (135-145) mmol/L Potassium 5.0 (3.3-5.1) mmol/L Chloride 117 H (96-108) mmol/L Carbon Dioxide 15 L (22-29) mmol/L Anion Gap 11 L (12-20) BUN 77 H (9-16) mg/dL Creatinine 3.81 H (0.5-1.4) mg/dL Estim Creat Clear Calc 19.5 Estimated GFR 16 Random Glucose 108 (60-115) mg/dL Calcium 8.7 (8.4-10.2) mg/dL Total Bilirubin 1.0 (0.0-1.0) mg/dL Direct Bilirubin 0.4 (0.0-0.5) mg/dL AST 9 (5-37) U/L ALT 10 (0-40) U/L Alkaline Phosphatase 95 (39-117) U/L Troponin I High Sens 6.8 (<3.5-35.0) ng/L Total Protein 6.5 (6.5-8.0) g/dL Albumin 3.9 (3.5-5.0) g/dL Lipase 14 (8-78) U/L 11/16/21 Range/Units 06:10 WBC (4.8-10.8) X10*3/uL RBC (4.60-5.80) X10*6/uL Hgb (14.0-18.0) g/dl Hct (42.0-52.0) % MCV (80.0-98.0) fL MCH (27.0-33.0) pg MCHC (31.0-36.0) g/dl RDW (11.0-16.0) % Plt Count (160-400) X10*3/uL MPV (9.4-12.4) fL Immature Gran % (Auto) (0.0-0.4) % Neut % (Auto) (45-73) % Lymph % (Auto) (20-40) % [place] % (Auto) (2-11) % Eos % (Auto) (0-4) % Baso % (Auto) (0-2) % Lymph # (Auto) (1.2-4.9) X10*3/uL [place] # (Auto) (0.1-1.2) X10*3/uL Eos # (Auto) (0.0-0.4) X10*3/uL Baso # (Auto) (0.0-0.2) X10*3/uL Abs Immat Gran (auto) (0.00-0.03) X10*3/uL Absolute Neuts (auto) (2.0-8.3) x10*3/uL Absolute Nucleated RBC (0.0-0.012) X10*3/uL Nucleated RBC % (auto) (0.0-0.2) /100WBC Sodium (135-145) mmol/L Potassium (3.3-5.1) mmol/L Chloride (96-108) mmol/L Carbon Dioxide (22-29) mmol/L Anion Gap (12-20) BUN (9-16) mg/dL Creatinine (0.5-1.4) mg/dL Estim Creat Clear Calc Estimated GFR Random Glucose (60-115) mg/dL Calcium (8.4-10.2) mg/dL Total Bilirubin (0.0-1.0) mg/dL Direct Bilirubin (0.0-0.5) mg/dL AST (5-37) U/L ALT (0-40) U/L Alkaline Phosphatase (39-117) U/L Troponin I High Sens 6.3 (<3.5-35.0) ng/L Total Protein (6.5-8.0) g/dL Albumin (3.5-5.0) g/dL Lipase (8-78) U/L ECG Data ECG #1: Attestation: I personally reviewed and interpreted this ECG as follows: Interpretation: Normal sinus rhythm at 67 beats per minute, left axis deviation, prolongation of MS interval was first-degree AV block, otherwise unremarkable intervals, no ST- T changes. Discharge Plan Discharge Clinical Impression: Chest pain Patient Disposition: Home, Self-Care Instructions: Chest Pain (ED) Prescriptions: No Action prednisone 10 mg tablet 10 mg PO DAILY Qty: 20 0RF Rx Instructions: 4 tabs QD x 2 days then 3 tabs QD x 2 days then 2 tabs Qd x 2 days then 1 tab QD x 2 days PO daily; atenolol 100 mg tablet 100 mg PO DAILY Qty: 30 3RF zolpidem 10 mg tablet 10 mg PO BEDTIME PRN (Reason: insomnia) 30 Days Qty: 30 1RF oxycodone 20 mg tablet 20 mg PO .COMPLEX PRN (Reason: SEVERE PAIN) 28 Days Qty: 84 0RF Rx Instructions: 20 mg PO 2-3 X A DAY PRN; #84- 28 DAYS PARTIAL REFILL UPON PT REQUEST amlodipine 5 mg tablet 5 mg PO DAILY Qty: 90 0RF ferrous sulfate 325 mg (65 mg iron) tablet 1 tab PO BID 0RF albuterol sulfate [Ventolin HFA] 90 mcg/actuation HFA aerosol inhaler 2 puff inhalation Q4H PRN (Reason: Wheezing) 0RF acetaminophen 325 mg Tablet 650 mg PO Q6H PRN (Reason: Pain) 0RF hydralazine 25 mg tablet 25 mg PO TID Qty: 90 0RF Referrals: Physician,Unknown J [Physician] -
[2021-11-16 04:05] LABS: Eosinophils Absolute Auto 0.1 X10*3/uL (0.0-0.4); Mean Corpuscular Hemoglobin 24.7 pg (27.0-33.0); PLT ABN DIST 1; Red Cell Distribution Width 15.9 % (11.0-16.0); SCAN SMEAR FLAG 1
[2021-11-16 04:07] LABS: Basophils Percent Auto 0.2 % (0-2); Hematocrit 29.4 % (42.0-52.0); Hemoglobin 8.7 g/dl (14.0-18.0); Imm Gran Abs Auto 0.03 X10*3/uL (0.00-0.03); Imm Gran Pct Auto 0.7 % (0.0-0.4); Lymphocytes Absolute Auto 0.6 X10*3/uL (1.2-4.9); Lymphocytes Percent Auto 14.4 % (20-40); Mean Corpuscular HGB Conc 29.6 g/dl (31.0-36.0); Mean Corpuscular Volume 83.5 fL (80.0-98.0); Mean Platelet Volume 12.4 fL (9.4-12.4); Monocytes Absolute Auto 0.4 X10*3/uL (0.1-1.2); Neutrophils Absolute Auto 3.3 x10*3/uL (2.0-8.3); Neutrophils Percent Auto 73.7 % (45-73); Platelet Count 118 X10*3/uL (160-400); Red Blood Count 3.52 X10*6/uL (4.60-5.80); White Blood Count 4.5 X10*3/uL (4.8-10.8)
[2021-11-16 04:08] LABS: MANUAL DIFF FLAG NO
[2021-11-16 04:26] LABS: Troponin-I High Sensitivity 6.8 ng/L (<3.5-35.0)
[2021-11-16 04:27] LABS: Alanine Aminotransferase 10 U/L (0-40); Albumin Level 3.9 g/dL (3.5-5.0); Alkaline Phosphatase 95 U/L (39-117); Anion Gap 11 (12-20); Aspartate Amino Transferase 9 U/L (5-37); Bilirubin Direct 0.4 mg/dL (0.0-0.5); Blood Urea Nitrogen 77 mg/dL (9-16); Calcium 8.7 mg/dL (8.4-10.2); Carbon Dioxide 15 mmol/L (22-29); Chloride 117 mmol/L (96-108); Creatinine Clr Calc Pharmacy 19.5; Estimated Glomerular Filt Rate 16; Glucose Random 108 mg/dL (60-115); Lipase 14 U/L (8-78); Sodium 138 mmol/L (135-145); Total Protein 6.5 g/dL (6.5-8.0)
[2021-11-16 06:33] LABS: Troponin-I High Sensitivity 6.3 ng/L (<3.5-35.0)
[2021-11-16 06:37] VITALS: BP 129/39; PULSE 63; RESP 14; O2SAT 98
--- NOTE | 2021-11-16 07:25 | PC.NURSE ---
pt reports he can take hospital shuttle home. this rn to arrange now.
--- NOTE | 2021-11-16 07:40 | PC.NURSE ---
this rn to security to retrieve locked bag. competed paperwork with george corea pct witnessed handover to pt.
== END 2021-11-16 07:42 | disposition home or self-care (01) ==
PROVIDERS: Emergency Provider Emergency Medicine; PCP Internal Medicine
DX: R07.89 Other chest pain (principal); Z79.899 Other long term (current) drug therapy
CPT/HCPCS: 36415; 71045; 80048; 80076; 83690; 84484; 85025; 93005; 99284

== ENCOUNTER 2021-11-17 15:03 | Inpatient (IN) | payer MEDICARE, MEDICAID, SELFPAY ==
[2021-11-17 15:17] VITALS: BP 173/93; PULSE 73; RESP 16; TEMP 36.9; O2SAT 94; BMI 24.0
--- NOTE | 2021-11-17 15:35 | ED_ITS ---
HPI - General Adult General Chief complaint: General Medical Stated complaint: uti Time Seen by Provider: 11/17/21 15:35 Source: patient Mode of arrival: EMS Limitations: altered mental status History of Present Illness HPI narrative: Patient is 71 years old with history of urothelial cancer status post left nephroureterectomy, bipolar disorder, CKD, diabetes was seen here yesterday for chest and discharged. Patient lives in [facility] been feeling increased weak and lethargic for last 2 3 days his room was filled with trash and bedding and clothes were soaked with urine patient does not wear urostomy bag is oriented x3 but very poor historian and slow to answer. Related Data Home Medications Medication Instructions Recorded Confirmed albuterol sulfate 90 mcg/actuation 2 puff INHALATION Q4H PRN 05/19/21 11/17/21 aerosol inhaler (Ventolin HFA) oxycodone 20 mg tablet 1 tab PO BID-TID PRN 11/17/21 11/17/21 Previous Rx's Medication Instructions Recorded atenolol 100 mg tablet 100 mg PO DAILY #30 tab 09/10/21 zolpidem 10 mg tablet 10 mg PO BEDTIME PRN 30 Days #30 10/25/21 tab amlodipine 5 mg tablet 5 mg PO DAILY #90 tab 11/13/21 Allergies Allergy/AdvReac Type Severity Reaction Status Date / Time piperacillin [From ZOSYN] Allergy Intermediate REDNESS/WARMTH Verified 09/04/21 14:07 TO IV SITE. tazobactam [From ZOSYN] Allergy Intermediate REDNESS/WARMTH Verified 09/04/21 14:07 TO IV SITE. 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 Chronic kidney disease (CKD), stage III (moderate) Dermatitis Hematuria Hematuria HLD (hyperlipidemia) HTN (hypertension) Hydronephrosis Hyperkalemia Hypertension Hypertension, uncontrolled Insomnia Lumbar degenerative disc disease Metabolic encephalopathy Obesity (BMI 30-39.9) Pruritic erythematous rash 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 Social History Social History Household Members: None Housing: House Do you presently have visiting nurse or other home services: No Alcohol intake: never Patient Tobacco Use Status: Never used Tobacco Second Hand Smoke Exposure: No Advance Directives: Yes Advance Directives on File: Yes Advance Directives Date on File: 11/17/21 service: No Current occupational status: retired and disabled Physical Exam ED Vital Signs: Vital Signs - 24 hr 11/17/21 15:17 11/17/21 17:03 11/17/21 20:23 Temperature 98.4 F 98.0 F 97.7 F Pulse Rate 73 70 67 Respiratory Rate 16 18 17 Blood Pressure 173/93 H 163/63 H 156/61 H Pulse Oximetry 94 97 BMI result Body Mass Index 24.0 Appearance: Alert. Oriented X3. No acute distress. Unkept condition slow to answer Eyes: PERRLA, ENT: Pharynx normal. Oral Mucosa moist Neck: Normal inspection. Neck supple. CVS: Normal heart rate and rhythm. Pulses normal. Respiratory: No respiratory distress. Equal air entry bilateral, Abdomen: Soft and nontender. Bowel sounds are present, no mass palpable, no CVA tenderness, urostomy without any bag Skin: Skin warm and dry. Normal skin color. Normal skin turgor. Extremities: No lower extremity edema. No calf tenderness Neuro: Oriented X 3. No motor deficit. Medical Decision Making MDM Narrative Medical decision making narrative: Patient with significant non-anion gap metabolic acidosis likely renal tubular acidosis type 1 from urostomy fluid loss , IV hydration, will get blood culture urine culture antibiotics IV fluids and bicarb IV plan to admit Lab Data Lab results reviewed: Yes I reviewed the patient's lab results. Result diagrams: 11/17/21 16:16 11/17/21 19:49 Labs: Lab Results 11/17/21 11/17/21 11/17/21 Range/Units 15:57 16:16 16:16 WBC 4.0 L (4.8-10.8) X10*3/uL RBC 3.69 L (4.60-5.80) X10*6/uL Hgb 9.5 L (14.0-18.0) g/dl Hct 31.5 L (42.0-52.0) % MCV 85.4 (80.0-98.0) fL MCH 25.7 L (27.0-33.0) pg MCHC 30.2 L (31.0-36.0) g/dl RDW 16.1 H (11.0-16.0) % Plt Count 150 L D (160-400) X10*3/uL MPV Not Reportable Immature Gran % (Auto) 0.5 H (0.0-0.4) % Neut % (Auto) 66.7 (45-73) % Lymph % (Auto) 19.4 L (20-40) % [place] % (Auto) 11.1 H (2-11) % Eos % (Auto) 1.8 (0-4) % Baso % (Auto) 0.5 (0-2) % Lymph # (Auto) 0.8 L (1.2-4.9) X10*3/uL [place] # (Auto) 0.4 (0.1-1.2) X10*3/uL Eos # (Auto) 0.1 (0.0-0.4) X10*3/uL Baso # (Auto) 0.0 (0.0-0.2) X10*3/uL Abs Immat Gran (auto) 0.02 (0.00-0.03) X10*3/uL Absolute Neuts (auto) 2.6 (2.0-8.3) x10*3/uL Absolute Nucleated RBC 0.000 (0.0-0.012) X10*3/uL Nucleated RBC % (auto) 0.0 (0.0-0.2) /100WBC Smear Tech's Comments VERIFIED VBG pH (7.32-7.43) VBG pCO2 mmHg VBG pO2 mmHg VBG HCO3 (22-26) mmol/L VBG O2 Saturation % VBG Base Excess mmol/L Sodium 142 (135-145) mmol/L Potassium 5.7 H (3.3-5.1) mmol/L Chloride 124 H (96-108) mmol/L Carbon Dioxide 10 L* D (22-29) mmol/L Anion Gap 14 (12-20) BUN 63 H (9-16) mg/dL Creatinine 2.60 H (0.5-1.4) mg/dL Estim Creat Clear Calc 22.1 Estimated GFR 25 Random Glucose 84 (60-115) mg/dL Lactic Acid (0.5-2.0) mmol/L Calcium 7.6 L D (8.4-10.2) mg/dL Total Bilirubin 0.6 (0.0-1.0) mg/dL AST 40 H D (5-37) U/L ALT 18 (0-40) U/L Alkaline Phosphatase 85 (39-117) U/L Total Protein 6.3 L (6.5-8.0) g/dL Albumin 3.4 L (3.5-5.0) g/dL Urine Color Urine Appearance Urine pH (5.0-8.0) Ur Specific [place] (1.005-1.025) Urine Protein (NEG-TRACE) MG/DL Urine Glucose (UA) (NEG) MG/DL Urine Ketones (NEG) MG/DL Urine Blood (NEG) Urine Nitrite (NEG) Ur Leukocyte Esterase (NEG) Urine RBC (0) /HPF Urine WBC (0-4) /HPF Ur Squamous Epith Cells /LPF Urine Bacteria /LPF COVID-19 ([facility]) Negative (Negative) COVID-19 Clin Com See Note 11/17/21 11/17/21 11/17/21 Range/Units 17:50 17:54 19:32 WBC (4.8-10.8) X10*3/uL RBC (4.60-5.80) X10*6/uL Hgb (14.0-18.0) g/dl Hct (42.0-52.0) % MCV (80.0-98.0) fL MCH (27.0-33.0) pg MCHC (31.0-36.0) g/dl RDW (11.0-16.0) % Plt Count (160-400) X10*3/uL MPV Immature Gran % (Auto) (0.0-0.4) % Neut % (Auto) (45-73) % Lymph % (Auto) (20-40) % [place] % (Auto) (2-11) % Eos % (Auto) (0-4) % Baso % (Auto) (0-2) % Lymph # (Auto) (1.2-4.9) X10*3/uL [place] # (Auto) (0.1-1.2) X10*3/uL Eos # (Auto) (0.0-0.4) X10*3/uL Baso # (Auto) (0.0-0.2) X10*3/uL Abs Immat Gran (auto) (0.00-0.03) X10*3/uL Absolute Neuts (auto) (2.0-8.3) x10*3/uL Absolute Nucleated RBC (0.0-0.012) X10*3/uL Nucleated RBC % (auto) (0.0-0.2) /100WBC Smear Tech's Comments VBG pH 7.23 L (7.32-7.43) VBG pCO2 30 mmHg VBG pO2 52 mmHg VBG HCO3 13 L (22-26) mmol/L VBG O2 Saturation 79.0 % VBG Base Excess -12.7 mmol/L Sodium (135-145) mmol/L Potassium (3.3-5.1) mmol/L Chloride (96-108) mmol/L Carbon Dioxide (22-29) mmol/L Anion Gap (12-20) BUN (9-16) mg/dL Creatinine (0.5-1.4) mg/dL Estim Creat Clear Calc Estimated GFR Random Glucose (60-115) mg/dL Lactic Acid 0.7 (0.5-2.0) mmol/L Calcium (8.4-10.2) mg/dL Total Bilirubin (0.0-1.0) mg/dL AST (5-37) U/L ALT (0-40) U/L Alkaline Phosphatase (39-117) U/L Total Protein (6.5-8.0) g/dL Albumin (3.5-5.0) g/dL Urine Color YELLOW Urine Appearance CLEAR Urine pH 6.5 (5.0-8.0) Ur Specific [place] 1.010 (1.005-1.025) Urine Protein TRACE (NEG-TRACE) MG/DL Urine Glucose (UA) NEG (NEG) MG/DL Urine Ketones NEG (NEG) MG/DL Urine Blood 2+ H (NEG) Urine Nitrite NEG (NEG) Ur Leukocyte Esterase 3+ H (NEG) Urine RBC 0-2 (0) /HPF Urine WBC 5-9 H (0-4) /HPF Ur Squamous Epith Cells NONE /LPF Urine Bacteria 1+ /LPF COVID-19 ([facility]) (Negative) COVID-19 Clin Com 11/17/21 Range/Units 19:49 WBC (4.8-10.8) X10*3/uL RBC (4.60-5.80) X10*6/uL Hgb (14.0-18.0) g/dl Hct (42.0-52.0) % MCV (80.0-98.0) fL MCH (27.0-33.0) pg MCHC (31.0-36.0) g/dl RDW (11.0-16.0) % Plt Count (160-400) X10*3/uL MPV Immature Gran % (Auto) (0.0-0.4) % Neut % (Auto) (45-73) % Lymph % (Auto) (20-40) % [place] % (Auto) (2-11) % Eos % (Auto) (0-4) % Baso % (Auto) (0-2) % Lymph # (Auto) (1.2-4.9) X10*3/uL [place] # (Auto) (0.1-1.2) X10*3/uL Eos # (Auto) (0.0-0.4) X10*3/uL Baso # (Auto) (0.0-0.2) X10*3/uL Abs Immat Gran (auto) (0.00-0.03) X10*3/uL Absolute Neuts (auto) (2.0-8.3) x10*3/uL Absolute Nucleated RBC (0.0-0.012) X10*3/uL Nucleated RBC % (auto) (0.0-0.2) /100WBC Smear Tech's Comments VBG pH (7.32-7.43) VBG pCO2 mmHg VBG pO2 mmHg VBG HCO3 (22-26) mmol/L VBG O2 Saturation % VBG Base Excess mmol/L Sodium 146 H (135-145) mmol/L Potassium 4.9 (3.3-5.1) mmol/L Chloride 122 H (96-108) mmol/L Carbon Dioxide 15 L (22-29) mmol/L Anion Gap 14 (12-20) BUN 67 H (9-16) mg/dL Creatinine 2.76 H (0.5-1.4) mg/dL Estim Creat Clear Calc 20.8 Estimated GFR 23 Random Glucose 81 (60-115) mg/dL Lactic Acid (0.5-2.0) mmol/L Calcium 8.6 D (8.4-10.2) mg/dL Total Bilirubin (0.0-1.0) mg/dL AST (5-37) U/L ALT (0-40) U/L Alkaline Phosphatase (39-117) U/L Total Protein (6.5-8.0) g/dL Albumin (3.5-5.0) g/dL Urine Color Urine Appearance Urine pH (5.0-8.0) Ur Specific [place] (1.005-1.025) Urine Protein (NEG-TRACE) MG/DL Urine Glucose (UA) (NEG) MG/DL Urine Ketones (NEG) MG/DL Urine Blood (NEG) Urine Nitrite (NEG) Ur Leukocyte Esterase (NEG) Urine RBC (0) /HPF Urine WBC (0-4) /HPF Ur Squamous Epith Cells /LPF Urine Bacteria /LPF COVID-19 ([facility]) (Negative) COVID-19 Clin Com ECG Data Attestation: I personally reviewed and interpreted this ECG as follows: Interpretation: Number sinus rhythm heart rate 63 beats per minute normal intervals normal axis no acute ST-T changes impression normal EKG Discharge Plan Discharge Clinical Impression: UTI (urinary tract infection), Chronic kidney disease (CKD), stage III (moderate), Metabolic acidosis, Weakness Patient Disposition: Admitted As Inpatient
--- NOTE | 2021-11-17 15:41 | PC.NURSE ---
This rn spoke with pt's son on phone, son reports pt has become increasingly depressed over inability to find a urostomy bag that fits properly causing him to leak urine constantly. Son report pt has become increasingly reluctant to leave his room and has stopped caring for himself or performing his own adl,s.
[2021-11-17] MEDS: 0.9 % Sodium Chloride 1,000 ML 999 ML IV (15:55)
[2021-11-17 16:29] LABS: Basophils Percent Auto 0.5 % (0-2); Eosinophils Absolute Auto 0.1 X10*3/uL (0.0-0.4); Eosinophils Percent Auto 1.8 % (0-4); Hematocrit 31.5 % (42.0-52.0); Hemoglobin 9.5 g/dl (14.0-18.0); Imm Gran Abs Auto 0.02 X10*3/uL (0.00-0.03); Imm Gran Pct Auto 0.5 % (0.0-0.4); Lymphocytes Absolute Auto 0.8 X10*3/uL (1.2-4.9); Lymphocytes Percent Auto 19.4 % (20-40); MANUAL DIFF FLAG SCAN; Mean Corpuscular HGB Conc 30.2 g/dl (31.0-36.0); Mean Corpuscular Hemoglobin 25.7 pg (27.0-33.0); Mean Corpuscular Volume 85.4 fL (80.0-98.0); Monocytes Absolute Auto 0.4 X10*3/uL (0.1-1.2); Monocytes Percent Auto 11.1 % (2-11); Neutrophils Absolute Auto 2.6 x10*3/uL (2.0-8.3); Neutrophils Percent Auto 66.7 % (45-73); Platelet Count 150 X10*3/uL (160-400); Red Blood Count 3.69 X10*6/uL (4.60-5.80); Red Cell Distribution Width 16.1 % (11.0-16.0); SCAN SMEAR FLAG 1
[2021-11-17 16:31] LABS: PLT ABN DIST 1
[2021-11-17 16:44] LABS: Alanine Aminotransferase 18 U/L (0-40); Albumin Level 3.4 g/dL (3.5-5.0); Alkaline Phosphatase 85 U/L (39-117); Anion Gap 14 (12-20); Aspartate Amino Transferase 40 U/L (5-37); Bilirubin Total 0.6 mg/dL (0.0-1.0); Blood Urea Nitrogen 63 mg/dL (9-16); Calcium 7.6 mg/dL (8.4-10.2); Carbon Dioxide 10 mmol/L (22-29); Chloride 124 mmol/L (96-108); Creatinine Clr Calc Pharmacy 22.1; Estimated Glomerular Filt Rate 25; Glucose Random 84 mg/dL (60-115); Potassium 5.7 mmol/L (3.3-5.1); Sodium 142 mmol/L (135-145); Total Protein 6.3 g/dL (6.5-8.0)
[2021-11-17 16:47] LABS: COVID-19 Test Negative (Negative); IDNOW Serial# 55D5AD1C
[2021-11-17 17:03] VITALS: BP 163/63; PULSE 70; RESP 18; TEMP 36.7; O2SAT 97
--- NOTE | 2021-11-17 17:17 | ECG_ITS ---
Test Reason : WEAKNESS Blood Pressure : / mmHG Vent. Rate : 063 BPM Atrial Rate : 063 BPM P-R Int : 162 ms QRS Dur : 100 ms QT Int : 456 ms P-R-T Axes : 021 -12 013 degrees QTc Int : 466 ms Normal sinus rhythm Normal ECG When compared with ECG of 16-NOV-2021 02:52, T wave amplitude has decreased in Anterior leads Referred By: Favio Menjivar Electronically Signed By:TRAV ELLIOTT
[2021-11-17] MEDS: Sodium Bicarbonate 8.4% 50 MEQ/50 ML SYRINGE IVPUSH (17:32)
[2021-11-17] MEDS: cefTRIAXone sodium 1 GM in 0.9 % Sodium Chloride 50 ML IV (17:54)
[2021-11-17 18:00] LABS: Venous Blood Gas Refer to POC result
[2021-11-17 18:01] LABS: VBG Base Excess -12.7 mmol/L; VBG HCO3 13 mmol/L (22-26); VBG pCO2 30 mmHg; VBG pH 7.23 (7.32-7.43); VBG pO2 52 mmHg
--- NOTE | 2021-11-17 18:01 | MHC.CM.PN ---
IMM 11/17. Reviewed with HCP/son Cj Nation ([phone]). Pt with sl confusion, poor historian. Per family, this is new for this patient. Cj tells CM that his father has been struggling and stressed since his surgery in August of this year. Pt had bladder/kidney cancer. Cj states his father has been exhausted and out of it . Pt has [facility] twice/week. Lives in congregate [place] housing. Has an efficiency apartment. Has MOW. Uses a cane at times. Family provides transportation. D/C plan: Home with existing services vs STR. Will depend on hospital course. CM will follow for d/c needs.
[2021-11-17 18:15] LABS: Lactic Acid 0.7 mmol/L (0.5-2.0)
[2021-11-17 19:39] LABS: Appearance Urine CLEAR; Color Urine YELLOW; Glucose Urine UA NEG (NEG); Leukocyte Esterase Urine 3+ (NEG); Nitrite Urine NEG (NEG); PH 6.5 (5.0-8.0); UACC Culture Trigger YES; Urine Blood 2+ (NEG); Urine Ketones NEG (NEG); Urine Protein TRACE MG/DL (NEG-TRACE)
[2021-11-17 19:46] LABS: Bacteria Urine 1+ /LPF; RBC Urine 0-2 /HPF (0)
[2021-11-17 20:23] VITALS: BP 156/61; PULSE 67; RESP 17; TEMP 36.5
[2021-11-17 20:24] LABS: Anion Gap 14 (12-20); Blood Urea Nitrogen 67 mg/dL (9-16); Calcium 8.6 mg/dL (8.4-10.2); Carbon Dioxide 15 mmol/L (22-29); Chloride 122 mmol/L (96-108); Creatinine Clr Calc Pharmacy 20.8; Estimated Glomerular Filt Rate 23; Glucose Random 81 mg/dL (60-115); Potassium 4.9 mmol/L (3.3-5.1); Sodium 146 mmol/L (135-145)
[2021-11-17 20:59] LABS: SLIDE REVIEW VERIFIED
--- NOTE | 2021-11-17 21:13 | P.HPHOSP_ITS ---
History of Present Illness Date of Service: 11/17/21 Chief Complaint: Altered mental status 71-year-old male with a past medical history of hypertension, hyperlipidemia, CKD, obesity, history of urothelial cancer status post left nephroureterectomy with open bladder excision in November 2020; recurrent bladder cancer with muscle invasion status post multiple TURBT; status post urostomy bag by Dr. Mena; presented to the hospital today with a chief complaint of altered mental status. Spoke to the patient's son who mentioned that patient was noted to be not himself for the past 2 days; not keeping his urostomy bag; noted urine spill over; in general patient lives alone, independent of ADLs; had visiting nurses twice weekly; denies patient complaining of any pain; unclear if the patient has been eating and drinking over the past couple days. Denies any concerns for fall or trauma. Denies patient complaining of any chest pain or palpitations. Denies patient having any signs of fever. Review of all other systems is negative except mentioned above ER course: Per ER team patient urostomy bag has been placed; urinalysis was abnormal consistent with UTI; given antibiotics; also on labs noted to have hyperkalemia and acidosis with bicarb of 10. Given 1 L of normal saline. Follow-up lab sheila wed improvement in the serum bicarb levels. Admitted for further management. 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 Surgical History History of bladder surgery History of cystoscopy History of left nephrectomy (~11/29/20) Hx of total cystectomy (~08/03/21) Social History Household Members: None Housing: Apartment Do you presently have visiting nurse or other home services: No Alcohol intake: never Patient Tobacco Use Status: Never used Tobacco Second Hand Smoke Exposure: No Advance Directives Date on File: 11/17/21 service: No Current occupational status: retired and disabled Meds Allergies Allergy/AdvReac Type Severity Reaction Status Date / Time piperacillin [From ZOSYN] Allergy Intermediate REDNESS/WARMTH Verified 09/04/21 14:07 TO IV SITE. tazobactam [From ZOSYN] Allergy Intermediate REDNESS/WARMTH Verified 09/04/21 14:07 TO IV SITE. ibuprofen Allergy Unknown Unknown Verified 09/04/21 14:07 lamotrigine [Lamictal] Allergy Unknown Unknown Verified 09/04/21 14:07 Anti-Inflammatory Enzyme Allergy Unknown rash on Uncoded 09/04/21 14:07 both legs Active Medications: Current Medications Acetaminophen (Acetaminophen 325 Mg Tablet) 650 mg PO Q6H PRN PRN Reason: Pain, Mild (Pain Scale 1-3) Enoxaparin Sodium (Enoxaparin Sodium 40 Mg/0.4 Ml Syringe) 40 mg SUBCUT Q24H BALA Dextrose/Sodium Chloride (D51/2ns) 1,000 mls @ 100 mls/hr IVCONT .Q10H BALA Melatonin (Melatonin 3 Mg Tablet) 6 mg PO BEDTIME PRN PRN Reason: Insomnia Pharmacy Consult (Consult Rx Perform Med Rec) 1 each MISCELLANE ONCE STA Stop: 11/17/21 21:02 Senna (Sennosides 8.6 Mg Tablet) 17.2 mg PO BEDTIME PRN PRN Reason: Constipation Sodium Chloride (0.9 % Sodium Chloride Flush 3 Ml Syringe) 3 ml IVFLUSH QSHIFT BALA Home Medications Medication Instructions Recorded Confirmed Last Taken Type albuterol sulfate 90 mcg/actuation 2 puff inhalation Q4H PRN Wheezing 05/19/21 12/04/21 Unknown History aerosol inhaler (Ventolin HFA) Physical Exam Vital Signs and Narrative: Vital Signs: Last Vital Signs Temp 97.7 F 11/17/21 20: Pulse 67 11/17/21 20:23 Resp 17 11/17/21 20:23 BP 156/61 H 11/17/21 20:23 Pulse Ox 97 11/17/21 17:03 BMI result Body Mass Index 24.0 Gen: Appears be in no acute distress HEENT: NCAT, Moist mucosa. Pulmonary: Vesicular breath sounds, fair air entry CVS: Normal S1-S2 Abdomen: BS+, Soft, Nontender ; urostomy bag Filled with urine. Extremities: Warm well perfused Neuro: Patient drowsy but response to questions. Results Labs CBC and Chem 7: 11/21/21 05:34 11/21/21 05:34 Labs: Laboratory Results - last 24 hr 11/17/21 11/17/21 11/17/21 15:57 16:16 16:16 MCV 85.4 MCH 25.7 L MCHC 30.2 L RDW 16.1 H Plt Count 150 L D MPV Not Reportable Immature Gran % (Auto) 0.5 H Neut % (Auto) 66.7 Lymph % (Auto) 19.4 L [place] % (Auto) 11.1 H Eos % (Auto) 1.8 Baso % (Auto) 0.5 Lymph # (Auto) 0.8 L [place] # (Auto) 0.4 Eos # (Auto) 0.1 Baso # (Auto) 0.0 Abs Immat Gran (auto) 0.02 Absolute Neuts (auto) 2.6 Absolute Nucleated RBC 0.000 Nucleated RBC % (auto) 0.0 Smear Tech's Comments VERIFIED VBG pH VBG pCO2 VBG pO2 VBG HCO3 VBG O2 Saturation VBG Base Excess Anion Gap 14 Estim Creat Clear Calc 22.1 Estimated GFR 25 Random Glucose 84 Lactic Acid Calcium 7.6 L D Total Bilirubin 0.6 AST 40 H D ALT 18 Alkaline Phosphatase 85 Total Protein 6.3 L Albumin 3.4 L Urine Color Urine Appearance Urine pH Ur Specific [place] Urine Protein Urine Glucose (UA) Urine Ketones Urine Blood Urine Nitrite Ur Leukocyte Esterase Urine RBC Urine WBC Ur Squamous Epith Cells Urine Bacteria COVID-19 ([facility]) Negative COVID-19 Clin Com See Note 11/17/21 11/17/21 11/17/21 17:50 17:54 19:32 MCV MCH MCHC RDW Plt Count MPV Immature Gran % (Auto) Neut % (Auto) Lymph % (Auto) [place] % (Auto) Eos % (Auto) Baso % (Auto) Lymph # (Auto) [place] # (Auto) Eos # (Auto) Baso # (Auto) Abs Immat Gran (auto) Absolute Neuts (auto) Absolute Nucleated RBC Nucleated RBC % (auto) Smear Tech's Comments VBG pH 7.23 L VBG pCO2 30 VBG pO2 52 VBG HCO3 13 L VBG O2 Saturation 79.0 VBG Base Excess -12.7 Anion Gap Estim Creat Clear Calc Estimated GFR Random Glucose Lactic Acid 0.7 Calcium Total Bilirubin AST ALT Alkaline Phosphatase Total Protein Albumin Urine Color YELLOW Urine Appearance CLEAR Urine pH 6.5 Ur Specific [place] 1.010 Urine Protein TRACE Urine Glucose (UA) NEG Urine Ketones NEG Urine Blood 2+ H Urine Nitrite NEG Ur Leukocyte Esterase 3+ H Urine RBC 0-2 Urine WBC 5-9 H Ur Squamous Epith Cells NONE Urine Bacteria 1+ COVID-19 ([facility]) COVID-19 [employer] 11/17/21 19:49 MCV MCH MCHC RDW Plt Count MPV Immature Gran % (Auto) Neut % (Auto) Lymph % (Auto) [place] % (Auto) Eos % (Auto) Baso % (Auto) Lymph # (Auto) [place] # (Auto) Eos # (Auto) Baso # (Auto) Abs Immat Gran (auto) Absolute Neuts (auto) Absolute Nucleated RBC Nucleated RBC % (auto) Smear Tech's Comments VBG pH VBG pCO2 VBG pO2 VBG HCO3 VBG O2 Saturation VBG Base Excess Anion Gap 14 Estim Creat Clear Calc 20.8 Estimated GFR 23 Random Glucose 81 Lactic Acid Calcium 8.6 D Total Bilirubin AST ALT Alkaline Phosphatase Total Protein Albumin Urine Color Urine Appearance Urine pH Ur Specific [place] Urine Protein Urine Glucose (UA) Urine Ketones Urine Blood Urine Nitrite Ur Leukocyte Esterase Urine RBC Urine WBC Ur Squamous Epith Cells Urine Bacteria COVID-19 ([facility]) COVID-19 FullContact Com Assessment and Plan (1) Presence of urostomy: (2) Acidosis: Status: Resolved (3) UTI (urinary tract infection): Status: Acute Plan 71-year-old male with a past medical history of hypertension, hyperlipidemia, CKD, obesity, history of urothelial cancer status post left nephroureterectomy with open bladder excision in November 2020; recurrent bladder cancer with muscle invasion status post multiple TURBT; status post urostomy bag by Dr. Mena; presented to the hospital today with a chief complaint of altered mental status. Altered mental status: Likely toxic metabolic encephalopathy in setting of UTI. Supportive care. Aspiration precautions. UTI: Continue ceftriaxone. Follow up cultures. Non anion gap metabolic acidosis: Likely in setting of hyperkalemia versus renal losses. Concern for RTA. Serum bicarb improving. Nephrology consult. Will give the patient on D5 half NS. History of hypertension: Continue home amlodipine/hydralazine History of urothelial cancer status post left nephroureterectomy with open cuff of bladder excision: Patient had recurrent bladder cancer -status post multiple TURBT /stent placement. Urostomy procedure by Dr. Mena on 08/03/2021. Currently patient refusing to keep his urostomy bag. Patient has visiting nurses twice weekly to help with the Urostomy bag. Urology follow-up DVT prophylaxis: Lovenox Code status: Full code Quality Stroke Does the patient have a stroke diagnosis?: No VTE Prior VTE?: No VTE Risk Level:: Medical - moderate - high VTE Device Contraindication: Treatment Not Indicated VTE Drug Contraindication: N/A - Med Ordered
--- NOTE | 2021-11-17 21:19 | PHA.MEDREC ---
Pharmacy Consult ? Medication Reconciliation Pharmacy has completed the medication reconciliation. PER PT, NO LONGER ON HYDRALAZINE
[2021-11-17] MEDS: Dextrose 5 % and 0.45 % NaCl 1,000 ML 100 ML IVCONT (21:41)
[2021-11-17] MEDS: Enoxaparin Sodium 40 MG/0.4 ML SYRINGE SUBCUT (21:41)
--- NOTE | 2021-11-18 01:28 | PC.NURSE ---
Kayla called in to overflow unit RN, patient assigned to bed 3.
[2021-11-18 02:05] VITALS: BP 149/57; PULSE 65; RESP 15; TEMP 36.5; O2SAT 96
[2021-11-18 04:02] VITALS: BP 127/49; PULSE 56; RESP 14; O2SAT 95
[2021-11-18] MEDS: Dextrose 5 % and 0.45 % NaCl 1,000 ML 100 ML IVCONT (06:13)
[2021-11-18 06:53] LABS: MANUAL DIFF FLAG NO
[2021-11-18 07:13] LABS: Basophils Percent Auto 0.6 % (0-2); Eosinophils Absolute Auto 0.1 X10*3/uL (0.0-0.4); Eosinophils Percent Auto 3.6 % (0-4); Hematocrit 30.5 % (42.0-52.0); Hemoglobin 9.2 g/dl (14.0-18.0); Imm Gran Abs Auto 0.01 X10*3/uL (0.00-0.03); Imm Gran Pct Auto 0.3 % (0.0-0.4); Lymphocytes Absolute Auto 0.8 X10*3/uL (1.2-4.9); Lymphocytes Percent Auto 24.3 % (20-40); Mean Corpuscular HGB Conc 30.2 g/dl (31.0-36.0); Mean Corpuscular Hemoglobin 24.9 pg (27.0-33.0); Mean Corpuscular Volume 82.7 fL (80.0-98.0); Monocytes Absolute Auto 0.3 X10*3/uL (0.1-1.2); Monocytes Percent Auto 9.6 % (2-11); Neutrophils Absolute Auto 2.1 x10*3/uL (2.0-8.3); Neutrophils Percent Auto 61.6 % (45-73); Platelet Count 116 X10*3/uL (160-400); Red Blood Count 3.69 X10*6/uL (4.60-5.80); White Blood Count 3.3 X10*3/uL (4.8-10.8)
[2021-11-18 07:14] LABS: Anion Gap 11 (12-20); Blood Urea Nitrogen 57 mg/dL (9-16); Calcium 8.5 mg/dL (8.4-10.2); Carbon Dioxide 14 mmol/L (22-29); Chloride 123 mmol/L (96-108); Creatinine Clr Calc Pharmacy 25.9; Estimated Glomerular Filt Rate 29; Glucose Random 108 mg/dL (60-115); Potassium 4.4 mmol/L (3.3-5.1); Sodium 144 mmol/L (135-145)
[2021-11-18] MEDS: Sodium Bicarbonate 8.4% 150 MEQ in Dextrose 5 % 850 ML 100 MEQ IV ×2 (13:52→22:48)
--- NOTE | 2021-11-18 15:22 | P.PNIM_ITS ---
Subjective Subjective Date of Service: 11/18/21 Interval History: No acute issues overnight; somewhat confused to place and person this a.m. Review of Systems Denies chest pain Denies shortness of breath Denies nausea vomiting diarrhea Denies fever chills Physical Exam Vital Signs: Vital Signs: Last Vital Signs Temp 97.7 F 11/18/21 02:05 Pulse 56 11/18/21 04:02 Resp 14 11/18/21 04:02 BP 127/49 L 11/18/21 04:02 Pulse Ox 95 11/18/21 04:02 BMI result Body Mass Index 24.0 Const: Other: Awake alert confused at times but easily reoriented bowel Resp: Other: Clear to auscultation bilaterally no rales rhonchi or wheezes Cardio: Other: No S4; positive S1-S2; no S3 murmurs rubs gallops GI: Other: Soft nontender nondistended normoactive bowel sounds : Other: Urostomy bag draining yellow urine Extrem: Other: No edema Objective Data Active Medications Acetaminophen (Acetaminophen 325 Mg Tablet) 650 mg PO Q6H PRN PRN Reason: Pain, Mild (Pain Scale 1-3) Enoxaparin Sodium (Enoxaparin Sodium 40 Mg/0.4 Ml Syringe) 40 mg SUBCUT Q24H [facility] Last Admin: 11/17/21 21:41 Dose: 40 mg Documented by: DANISHA Dextrose/Sodium Chloride (D51/2ns) 1,000 mls @ 100 mls/hr IVCONT .Q10H [facility] Last Admin: 11/18/21 06:13 Dose: 100 mls/hr Documented by: PHILL Ceftriaxone Sodium 1 gm/ (Sodium Chloride) 50 mls @ 100 mls/hr IV Q24H [facility] Sodium Bicarbonate 150 meq/ (Dextrose) 1,000 mls @ 100 mls/hr IV .Q10H [facility] Last Admin: 11/18/21 13:52 Dose: 100 mls/hr Documented by: JOELLE Melatonin (Melatonin 3 Mg Tablet) 6 mg PO BEDTIME PRN PRN Reason: Insomnia Senna (Sennosides 8.6 Mg Tablet) 17.2 mg PO BEDTIME PRN PRN Reason: Constipation Sodium Chloride (0.9 % Sodium Chloride Flush 3 Ml Syringe) 3 ml IVFLUSH QSHIFT [facility] Last Admin: 11/18/21 09:07 Dose: Not Given Documented by: JOELLE Non-Admin Reason: IV Running Labs CBC & Chem 7: 11/18/21 06:18 11/18/21 06:18 Labs: Laboratory Results - last 24 hr 11/17/21 11/17/21 11/17/21 15:57 16:16 16:16 MCV 85.4 MCH 25.7 L MCHC 30.2 L RDW 16.1 H Plt Count 150 L D MPV Not Reportable Immature Gran % (Auto) 0.5 H Neut % (Auto) 66.7 Lymph % (Auto) 19.4 L [place] % (Auto) 11.1 H Eos % (Auto) 1.8 Baso % (Auto) 0.5 Lymph # (Auto) 0.8 L [place] # (Auto) 0.4 Eos # (Auto) 0.1 Baso # (Auto) 0.0 Abs Immat Gran (auto) 0.02 Absolute Neuts (auto) 2.6 Absolute Nucleated RBC 0.000 Nucleated RBC % (auto) 0.0 Smear Tech's Comments VERIFIED VBG pH VBG pCO2 VBG pO2 VBG HCO3 VBG O2 Saturation VBG Base Excess Anion Gap 14 Estim Creat Clear Calc 22.1 Estimated GFR 25 Random Glucose 84 Lactic Acid Calcium 7.6 L D Total Bilirubin 0.6 AST 40 H D ALT 18 Alkaline Phosphatase 85 Total Protein 6.3 L Albumin 3.4 L Urine Color Urine Appearance Urine pH Ur Specific [place] Urine Protein Urine Glucose (UA) Urine Ketones Urine Blood Urine Nitrite Ur Leukocyte Esterase Urine RBC Urine WBC Ur Squamous Epith Cells Urine Bacteria COVID-19 ([facility]) Negative COVID-19 Clin Com See Note 11/17/21 11/17/21 11/17/21 17:50 17:54 19:32 MCV MCH MCHC RDW Plt Count MPV Immature Gran % (Auto) Neut % (Auto) Lymph % (Auto) [place] % (Auto) Eos % (Auto) Baso % (Auto) Lymph # (Auto) [place] # (Auto) Eos # (Auto) Baso # (Auto) Abs Immat Gran (auto) Absolute Neuts (auto) Absolute Nucleated RBC Nucleated RBC % (auto) Smear Tech's Comments VBG pH 7.23 L VBG pCO2 30 VBG pO2 52 VBG HCO3 13 L VBG O2 Saturation 79.0 VBG Base Excess -12.7 Anion Gap Estim Creat Clear Calc Estimated GFR Random Glucose Lactic Acid 0.7 Calcium Total Bilirubin AST ALT Alkaline Phosphatase Total Protein Albumin Urine Color YELLOW Urine Appearance CLEAR Urine pH 6.5 Ur Specific [place] 1.010 Urine Protein TRACE Urine Glucose (UA) NEG Urine Ketones NEG Urine Blood 2+ H Urine Nitrite NEG Ur Leukocyte Esterase 3+ H Urine RBC 0-2 Urine WBC 5-9 H Ur Squamous Epith Cells NONE Urine Bacteria 1+ COVID-19 ([facility]) COVID-19 Cheers 11/17/21 11/18/21 11/18/21 19:49 06:18 06:18 MCV 82.7 MCH 24.9 L MCHC 30.2 L RDW 16.0 Plt Count 116 L MPV Not Reportable Immature Gran % (Auto) 0.3 Neut % (Auto) 61.6 Lymph % (Auto) 24.3 [place] % (Auto) 9.6 Eos % (Auto) 3.6 Baso % (Auto) 0.6 Lymph # (Auto) 0.8 L [place] # (Auto) 0.3 Eos # (Auto) 0.1 Baso # (Auto) 0.0 Abs Immat Gran (auto) 0.01 Absolute Neuts (auto) 2.1 Absolute Nucleated RBC 0.000 Nucleated RBC % (auto) 0.0 Smear Tech's Comments VBG pH VBG pCO2 VBG pO2 VBG HCO3 VBG O2 Saturation VBG Base Excess Anion Gap 14 11 L Estim Creat Clear Calc 20.8 25.9 Estimated GFR 23 29 Random Glucose 81 108 Lactic Acid Calcium 8.6 D 8.5 Total Bilirubin AST ALT Alkaline Phosphatase Total Protein Albumin Urine Color Urine Appearance Urine pH Ur Specific [place] Urine Protein Urine Glucose (UA) Urine Ketones Urine Blood Urine Nitrite Ur Leukocyte Esterase Urine RBC Urine WBC Ur Squamous Epith Cells Urine Bacteria COVID-19 ([facility]) COVID-19 Clin Com Microbiology Microbiology Results: Microbiology 11/17/21 19:41 Urine Culture - Preliminary Urine Catheterized - Molina Catheter Gram negative lefty Assessment and Plan (1) Metabolic encephalopathy: Status: Acute (2) UTI (urinary tract infection): Status: Acute (3) ZINA (acute kidney injury): Status: Acute Plan 71-year-old male with a past medical history of hypertension, hyperlipidemia, CKD, obesity, history of urothelial cancer status post left nephroureterectomy with open bladder excision in November 2020; recurrent bladder cancer with muscle invasion status post multiple TURBT; status post urostomy bag by Dr. Mena; presented to the hospital today with a chief complaint of altered mental status; active urinary sediment 1.Toxic metabolic encephalopathy(UTI) -preliminary culture GNR>100K -continue ceftriaxone pending ID and sensitivities 2.ZINA/metabolic acidosis -discussed with Renal; will start bicarb drip and follow -follow renals/divalents 3.Hypertension -acceptable control on current therapies -adjust as clinically indicated 4.History of urothelial cancer status post left nephroureterectomy -continue current therapies including urostomy bag -Urology follow-up DVT prophylaxis: Lovenox Code status: Full code Requires ongoing hospitalization to treat metabolic encephalopathy likely related to UTI with IV antibiotics pending ID and sensitivities Quality Stroke Does the patient have a stroke diagnosis?: No VTE Prior VTE?: No VTE Risk Level:: Medical - moderate - high VTE Device Contraindication: Treatment Not Indicated VTE Drug Contraindication: N/A - Med Ordered
[2021-11-18 16:36] VITALS: BP 133/63; PULSE 64; RESP 16; TEMP 36.8; O2SAT 96
[2021-11-18] MEDS: cefTRIAXone sodium 1 GM in 0.9 % Sodium Chloride 50 ML IV (17:00)
[2021-11-18 21:37] VITALS: BP 145/68; PULSE 66; RESP 18; TEMP 36.9; O2SAT 95
[2021-11-18 21:38] VITALS: BMI 30.4
[2021-11-18] MEDS: Enoxaparin Sodium 40 MG/0.4 ML SYRINGE SUBCUT (21:57)
--- NOTE | 2021-11-18 22:09 | MHC.PIE ---
p; pt arrived from [place] no diet ordred and 2 ivf ordered. pt asking for araseli mello i; dr talavera notified; ok to give sips of araseli mello. give ivf sodium bicarb, hold d5 1/2 e; will cont to monitor
[2021-11-18] MEDS: 0.9 % Sodium Chloride Flush 3 ML SYRINGE IVFLUSH (22:49)
[2021-11-19] VITALS (7 sets, daily range): BP systolic 164–199; BP diastolic 70–92; PULSE 60–87; RESP 14–20; TEMP 35.9–37.3; O2SAT 94–97
[2021-11-19] MEDS: Sodium Bicarbonate 8.4% 150 MEQ in Dextrose 5 % 850 ML 100 MEQ IV (09:07)
--- NOTE | 2021-11-19 12:08 | HO.PM.IMPN ---
Subjective Subjective Date of Service: 11/19/21 Interval History: No acute issues overnight; somewhat confused to place and person this a.m. Review of Systems Denies chest pain Denies shortness of breath Denies nausea vomiting diarrhea Denies fever chills Physical Exam Vital Signs: Vital Signs: Last Vital Signs Temp 98.6 F 11/19/21 11:39 Pulse 64 11/19/21 11:39 Resp 14 11/19/21 11:39 BP 195/92 H 11/19/21 11:39 Pulse Ox 95 11/19/21 11:39 BMI result Body Mass Index 30.4 Const: Other: Awake alert confused at times but easily reoriented bowel Resp: Other: Clear to auscultation bilaterally no rales rhonchi or wheezes Cardio: Other: No S4; positive S1-S2; no S3 murmurs rubs gallops GI: Other: Soft nontender nondistended normoactive bowel sounds : Other: Urostomy bag draining yellow urine Extrem: Other: No edema Objective Data Active Medications Acetaminophen (Acetaminophen 325 Mg Tablet) 650 mg PO Q6H PRN PRN Reason: Pain, Mild (Pain Scale 1-3) Enoxaparin Sodium (Enoxaparin Sodium 40 Mg/0.4 Ml Syringe) 40 mg SUBCUT Q24H [facility] Last Admin: 11/18/21 21:57 Dose: 40 mg Documented by: PHILL Dextrose/Sodium Chloride (D51/2ns) 1,000 mls @ 100 mls/hr IVCONT .Q10H [facility] Last Admin: 11/19/21 04:42 Dose: Not Given Documented by: QUANG Non-Admin Reason: IV Running Ceftriaxone Sodium 1 gm/ (Sodium Chloride) 50 mls @ 100 mls/hr IV Q24H [facility] Last Infusion: 11/18/21 17:46 Dose: 0 mls/hr Documented by: JOELLE Sodium Bicarbonate 150 meq/ (Dextrose) 1,000 mls @ 100 mls/hr IV .Q10H [facility] Last Admin: 11/19/21 09:07 Dose: 100 mls/hr Documented by: LIU Melatonin (Melatonin 3 Mg Tablet) 6 mg PO BEDTIME PRN PRN Reason: Insomnia Senna (Sennosides 8.6 Mg Tablet) 17.2 mg PO BEDTIME PRN PRN Reason: Constipation Sodium Chloride (0.9 % Sodium Chloride Flush 3 Ml Syringe) 3 ml IVFLUSH QSHIFT [facility] Last Admin: 11/19/21 09:07 Dose: Not Given Documented by: LIU Non-Admin Reason: IV Running Labs CBC & Chem 7: 11/18/21 06:18 11/18/21 06:18 Microbiology Microbiology Results: Microbiology 11/17/21 19:41 Urine Culture - Final Urine Catheterized - Molina Catheter Escherichia coli 11/17/21 18:06 Blood Culture - Preliminary Blood - Venous No growth after 24 hours. 11/17/21 17:51 Blood Culture - Preliminary Blood - Venous No growth after 24 hours. Assessment and Plan (1) Metabolic encephalopathy: Status: Acute (2) UTI (urinary tract infection): Status: Acute (3) ZINA (acute kidney injury): Status: Acute (4) HTN (hypertension): Status: Acute Plan 71-year-old male with a past medical history of hypertension, hyperlipidemia, CKD, obesity, history of urothelial cancer status post left nephroureterectomy with open bladder excision in November 2020; recurrent bladder cancer with muscle invasion status post multiple TURBT; status post urostomy bag by Dr. Mena; presented to the hospital today with a chief complaint of altered mental status; active urinary sediment 1.Toxic metabolic encephalopathy(UTI) -remians confused -preliminary culture GNR>100K SS CTX - 2.ZINA/metabolic acidosis -discussed with Renal; will start bicarb drip and follow -await part carbon; if improved/normalized will switch to normal saline -follow renals/divalents 3.Hypertension -unacceptable control on current therapies -amlodipine 5 mg daily -adjust as clinically indicated 4.History of urothelial cancer status post left nephroureterectomy -continue current therapies including urostomy bag -Urology follow-up DVT prophylaxis: Lovenox Code status: Full code Requires ongoing hospitalization to treat metabolic encephalopathy likely related to UTI with IV antibiotics; high risk for outpatient failure Quality Stroke Does the patient have a stroke diagnosis?: No VTE Prior VTE?: No VTE Risk Level:: Medical - moderate - high VTE Device Contraindication: Treatment Not Indicated VTE Drug Contraindication: N/A - Med Ordered
[2021-11-19] MEDS: amLODIPine Besylate 5 MG TABLET PO (12:44)
[2021-11-19 13:23] LABS: MANUAL DIFF FLAG NO
[2021-11-19 13:31] LABS: Basophils Percent Auto 0.3 % (0-2); Eosinophils Absolute Auto 0.1 X10*3/uL (0.0-0.4); Eosinophils Percent Auto 3.6 % (0-4); Hematocrit 28.7 % (42.0-52.0); Hemoglobin 8.9 g/dl (14.0-18.0); Lymphocytes Absolute Auto 0.7 X10*3/uL (1.2-4.9); Lymphocytes Percent Auto 19.9 % (20-40); Mean Corpuscular Hemoglobin 25.1 pg (27.0-33.0); Mean Corpuscular Volume 81.1 fL (80.0-98.0); Mean Platelet Volume 10.8 fL (9.4-12.4); Monocytes Absolute Auto 0.3 X10*3/uL (0.1-1.2); Monocytes Percent Auto 9.8 % (2-11); Neutrophils Absolute Auto 2.2 x10*3/uL (2.0-8.3); Neutrophils Percent Auto 66.4 % (45-73); Platelet Count 119 X10*3/uL (160-400); Red Blood Count 3.54 X10*6/uL (4.60-5.80); Red Cell Distribution Width 15.9 % (11.0-16.0); White Blood Count 3.4 X10*3/uL (4.8-10.8)
[2021-11-19 13:49] LABS: Alanine Aminotransferase 14 U/L (0-40); Albumin Level 3.3 g/dL (3.5-5.0); Alkaline Phosphatase 82 U/L (39-117); Anion Gap 9 (12-20); Aspartate Amino Transferase 11 U/L (5-37); Bilirubin Total 0.6 mg/dL (0.0-1.0); Blood Urea Nitrogen 30 mg/dL (9-16); Calcium 8.2 mg/dL (8.4-10.2); Carbon Dioxide 26 mmol/L (22-29); Chloride 115 mmol/L (96-108); Creatinine Clr Calc Pharmacy 46.6; Estimated Glomerular Filt Rate 50; Glucose Fasting 148 mg/dL (60-99); Potassium 3.5 mmol/L (3.3-5.1); Sodium 146 mmol/L (135-145); Total Protein 5.7 g/dL (6.5-8.0)
[2021-11-19] MEDS: Dextrose 5 % and 0.45 % NaCl 1,000 ML 100 ML IVCONT (14:26)
[2021-11-19] MEDS: cefTRIAXone sodium 1 GM in 0.9 % Sodium Chloride 50 ML IV (16:31)
[2021-11-19] MEDS: 0.9 % Sodium Chloride Flush 3 ML SYRINGE IVFLUSH (16:38)
[2021-11-19] MEDS: Enoxaparin Sodium 40 MG/0.4 ML SYRINGE SUBCUT (21:34)
[2021-11-20] VITALS (8 sets, daily range): BP systolic 168–200; BP diastolic 71–108; PULSE 69–90; RESP 15–18; TEMP 36.3–37.4; O2SAT 94–96
[2021-11-20 06:59] LABS: MANUAL DIFF FLAG NO
[2021-11-20 07:26] LABS: Basophils Percent Auto 0.3 % (0-2); Eosinophils Absolute Auto 0.2 X10*3/uL (0.0-0.4); Eosinophils Percent Auto 4.8 % (0-4); Hematocrit 29.6 % (42.0-52.0); Hemoglobin 9.1 g/dl (14.0-18.0); Imm Gran Abs Auto 0.01 X10*3/uL (0.00-0.03); Imm Gran Pct Auto 0.3 % (0.0-0.4); Lymphocytes Absolute Auto 0.8 X10*3/uL (1.2-4.9); Lymphocytes Percent Auto 21.7 % (20-40); Mean Corpuscular HGB Conc 30.7 g/dl (31.0-36.0); Mean Corpuscular Hemoglobin 24.9 pg (27.0-33.0); Mean Corpuscular Volume 81.1 fL (80.0-98.0); Monocytes Absolute Auto 0.4 X10*3/uL (0.1-1.2); Monocytes Percent Auto 10.7 % (2-11); Neutrophils Absolute Auto 2.3 x10*3/uL (2.0-8.3); Neutrophils Percent Auto 62.2 % (45-73); Platelet Count 114 X10*3/uL (160-400); Red Blood Count 3.65 X10*6/uL (4.60-5.80); Red Cell Distribution Width 15.8 % (11.0-16.0); White Blood Count 3.7 X10*3/uL (4.8-10.8)
[2021-11-20 07:39] LABS: Alanine Aminotransferase 14 U/L (0-40); Albumin Level 3.2 g/dL (3.5-5.0); Alkaline Phosphatase 82 U/L (39-117); Anion Gap 8 (12-20); Aspartate Amino Transferase 11 U/L (5-37); Bilirubin Total 0.7 mg/dL (0.0-1.0); Blood Urea Nitrogen 20 mg/dL (9-16); Calcium 8.6 mg/dL (8.4-10.2); Carbon Dioxide 27 mmol/L (22-29); Chloride 115 mmol/L (96-108); Creatinine Clr Calc Pharmacy 53.9; Estimated Glomerular Filt Rate 59; Glucose Fasting 120 mg/dL (60-99); Potassium 3.4 mmol/L (3.3-5.1); Sodium 147 mmol/L (135-145); Total Protein 5.8 g/dL (6.5-8.0)
[2021-11-20] MEDS: 0.9 % Sodium Chloride Flush 3 ML SYRINGE IVFLUSH ×3 (07:49→21:16)
[2021-11-20] MEDS: amLODIPine Besylate 5 MG TABLET PO (07:49)
--- NOTE | 2021-11-20 09:35 | MHC.CLN ---
Addendum entered by Rajni Trujillo RD 11/20/21 09:41: NUTRITION CONSULT FOR SKIN INTEGRITY. PATIENT WITH REDNESS TO BUTTOCKS. NO ADDITIONAL NUTRITION INTERVENTIONS AT THIS TIME. Original Note: NUTRITION DIET CHANGED TO 2 GRAM SODIUM DUE TO DX HTN AND CKD STAGE 3.
--- NOTE | 2021-11-20 11:39 | HO.PM.IMPN ---
Subjective Subjective Date of Service: 11/20/21 Interval History: No acute issues overnight; remains confused to place and person this a.m. Review of Systems Denies chest pain Denies shortness of breath Denies nausea vomiting diarrhea Denies fever chills Physical Exam Vital Signs: Vital Signs: Last Vital Signs Temp 97.6 F 11/20/21 11:33 Pulse 82 11/20/21 11:33 Resp 18 11/20/21 11:33 BP 197/97 H 11/20/21 11:33 Pulse Ox 94 11/20/21 11:33 BMI result Body Mass Index 30.4 Const: Other: Awake alert confused at times but easily reoriented bowel Resp: Other: Clear to auscultation bilaterally no rales rhonchi or wheezes Cardio: Other: No S4; positive S1-S2; no S3 murmurs rubs gallops GI: Other: Soft nontender nondistended normoactive bowel sounds : Other: Urostomy bag draining yellow urine Extrem: Other: No edema Objective Data Active Medications Acetaminophen (Acetaminophen 325 Mg Tablet) 650 mg PO Q6H PRN PRN Reason: Pain, Mild (Pain Scale 1-3) Amlodipine Besylate (Amlodipine Besylate 10 Mg Tablet) 10 mg PO DAILY [facility]; Protocol Enoxaparin Sodium (Enoxaparin Sodium 40 Mg/0.4 Ml Syringe) 40 mg SUBCUT Q24H [facility] Last Admin: 11/19/21 21:34 Dose: 40 mg Documented by: MYAH Ceftriaxone Sodium 1 gm/ (Sodium Chloride) 50 mls @ 100 mls/hr IV Q24H [facility] Last Infusion: 11/19/21 17:12 Dose: 0 mls/hr Documented by: LIU Melatonin (Melatonin 3 Mg Tablet) 6 mg PO BEDTIME PRN PRN Reason: Insomnia Senna (Sennosides 8.6 Mg Tablet) 17.2 mg PO BEDTIME PRN PRN Reason: Constipation Sodium Chloride (0.9 % Sodium Chloride Flush 3 Ml Syringe) 3 ml IVFLUSH QSHIFT [facility] Last Admin: 11/20/21 07:49 Dose: 3 ml Documented by: ROSIBEL Labs CBC & Chem 7: 11/20/21 06:21 11/20/21 06:21 Labs: Laboratory Results - last 24 hr 11/19/21 11/19/21 11/20/21 13:17 13:17 06:21 MCV 81.1 81.1 MCH 25.1 L 24.9 L MCHC 31.0 30.7 L RDW 15.9 15.8 Plt Count 119 L 114 L MPV 10.8 Not Reportable Immature Gran % (Auto) 0.0 0.3 Neut % (Auto) 66.4 62.2 Lymph % (Auto) 19.9 L 21.7 [place] % (Auto) 9.8 10.7 Eos % (Auto) 3.6 4.8 H Baso % (Auto) 0.3 0.3 Lymph # (Auto) 0.7 L 0.8 L [place] # (Auto) 0.3 0.4 Eos # (Auto) 0.1 0.2 Baso # (Auto) 0.0 0.0 Abs Immat Gran (auto) 0.00 0.01 Absolute Neuts (auto) 2.2 2.3 Absolute Nucleated RBC 0.000 0.000 Nucleated RBC % (auto) 0.0 0.0 Anion Gap 9 L Estim Creat Clear Calc 46.6 Estimated GFR 50 Fasting Glucose 148 H Calcium 8.2 L Total Bilirubin 0.6 AST 11 D ALT 14 Alkaline Phosphatase 82 Total Protein 5.7 L Albumin 3.3 L 11/20/21 06:21 MCV MCH MCHC RDW Plt Count MPV Immature Gran % (Auto) Neut % (Auto) Lymph % (Auto) [place] % (Auto) Eos % (Auto) Baso % (Auto) Lymph # (Auto) [place] # (Auto) Eos # (Auto) Baso # (Auto) Abs Immat Gran (auto) Absolute Neuts (auto) Absolute Nucleated RBC Nucleated RBC % (auto) Anion Gap 8 L Estim Creat Clear Calc 53.9 Estimated GFR 59 Fasting Glucose 120 H Calcium 8.6 Total Bilirubin 0.7 AST 11 ALT 14 Alkaline Phosphatase 82 Total Protein 5.8 L Albumin 3.2 L Microbiology Microbiology Results: Microbiology 11/17/21 18:06 Blood Culture - Preliminary Blood - Venous No growth after 48 hours. 11/17/21 17:51 Blood Culture - Preliminary Blood - Venous No growth after 48 hours. 11/17/21 19:41 Urine Culture - Final Urine Catheterized - Molina Catheter Escherichia coli Assessment and Plan (1) Metabolic encephalopathy: Status: Acute (2) ZINA (acute kidney injury): Status: Acute (3) HTN (hypertension): Status: Acute (4) Bladder cancer: Status: Acute Plan 71-year-old male with a past medical history of hypertension, hyperlipidemia, CKD, obesity, history of urothelial cancer status post left nephroureterectomy with open bladder excision in November 2020; recurrent bladder cancer with muscle invasion status post multiple TURBT; status post urostomy bag by Dr. Mena; presented to the hospital today with a chief complaint of altered mental status; active urinary sediment 1.Toxic metabolic encephalopathy(UTI) -remians confused -preliminary culture EColi>100K SS CTX -Ceftriaxone(3) 2.ZINA/metabolic acidosis -resolved -follow renals/divalents 3.Hypertension -unacceptable control on current therapies -amlodipine 10 mg daily(increase) -adjust as clinically indicated 4.History of urothelial cancer status post left nephroureterectomy -continue current therapies including urostomy bag -Urology follow-up DVT prophylaxis: Lovenox Code status: Full code Requires ongoing hospitalization to treat metabolic encephalopathy likely related to UTI with IV antibiotics; high risk for outpatient failure. Needs placement Quality Stroke Does the patient have a stroke diagnosis?: No VTE Prior VTE?: No VTE Risk Level:: Medical - moderate - high VTE Device Contraindication: Treatment Not Indicated VTE Drug Contraindication: N/A - Med Ordered
--- NOTE | 2021-11-20 11:44 | MHC.CM.PN ---
[facility] REVIEWED, PER HOSPITALIST PT NOT DOING WELL MANAGING UROSTOMY BAG, PER SON THEY HAVE BEEN UNABLE TO FIND A BAG THAT FIT CORRECTLY CAUSING CONSTANT LEAKING, VERNA PT WILL NEED STR, PER SON JESUS FIRST CHOICE IS [facility], VERNA PT WILL BE READY FOR TOMORROW 11/21, REFERAL TO BE PLACED TO [facility].
--- NOTE | 2021-11-20 14:47 | MHC.CM.PN ---
CM CONTACTED PT'S SON JESUS AT 2:13PM AT NUMBER ON FILE TO DISCUSS DCP PREFERRED [facility] IS NOT ABLE TO OFFER PT A BED, PER JESUS PT WOULD NOT WANT TO GO TO [facility] HIS FATHER THERE AND [facility] WOULD BE 2ND CHOICE, REFERRAL PLACED.
--- NOTE | 2021-11-20 15:05 | CONS_ITS ---
DATE OF SERVICE: 11/18/2021 REASON FOR CONSULTATION: Consult requested by the medical team to evaluate and help in management of the patient with renal insufficiency and metabolic acidosis. HISTORY OF PRESENT ILLNESS: The patient is a 71-year-old male with past medical history of longstanding hypertension, hyperlipidemia, chronic kidney disease stage 4 with baseline creatinine ranging anywhere between 2.0 to 3.0, who presented to the hospital with altered mental status. He has a history of ureterolithiasis, status post left nephroureterectomy and open bladder revision in November 2020. He had recurrent bladder CA with muscle invasion, status post multiple TURBT. He also has a urostomy in place, followed by Dr. Mena. Apparently, the patient's son mentioned the patient had not been his usual self for the last 2 days. He is not keeping his urostomy bag and urine has been spilling all over. Unclear if the patient has been eating or drinking much over the last couple of days. There is no fall or trauma. No chest pain or palpitation. He was evaluated in the ER and was diagnosed to have UTI. He was given antibiotics. He was hyperkalemic and acidotic with a bicarb of 10. He was given 1 L of normal saline with improvement of his creatinine level and his potassium level. Renal consult has been requested to help with management of his metabolic acidosis. 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 FAMILY HISTORY: Patient's father due to . He had a history of hypertension, CVA. The patient's mother is . PAST SURGICAL HISTORY: Patient has bladder surgery, cystoscopy, left nephrectomy, and total cystectomy with urostomy. PERSONAL AND SOCIAL HISTORY: Patient lives in his house, has a visiting nurse. Does not smoke. Does not use drugs. ALLERGIES: INCLUDE ZOSYN, IBUPROFEN, LAMICTAL, ANTI-INFLAMMATORY DRUG. MEDICATIONS: At home include albuterol, MDI, oxycodone. PHYSICAL EXAMINATION: GENERAL: Patient is resting in the bed, sleepy but arousable. Not giving a good history. VITAL SIGNS: Blood pressure was 127/49, pulse 56, afebrile. HEENT: Shows pupils equal bilaterally to light. No jugular venous distention. NECK: Supple. No thyromegaly is noted. Mucosa dry. There is no scleral icterus or conjunctival congestion. CARDIOVASCULAR: S1, S2 without rub or murmur. RESPIRATORY: Decreased in bases. No crepitation or rhonchi is noted. ABDOMEN: Soft with an ostomy in place. EXTREMITIES: Showed no edema. LABORATORY DATA: Labs done today, sodium 144, potassium 4.4, chloride 123, CO2 of 14, anion gap 11, BUN 57, creatinine 2.2. Estimated GFR 29, calcium 8.5, albumin 3.4. WBC 3.3, hemoglobin 9.2, hematocrit 30.5, platelets 116. Urinalysis shows specific gravity of 1.010, protein trace, glucose negative, ketone negative, rbc's 0-2, wbc's 5-9. IMPRESSION: 1. 71-year-old male with mild acute kidney injury. Acute kidney injury. Patient likely is in renal hypoperfusion/prerenal state. The exact baseline creatinine is unclear at this juncture, though his creatinine has been ranging anywhere between 2-3. I will rule out obstruction in this patient as well. 2. Chronic kidney disease, stage 4, baseline setting of longstanding hypertension, diabetes. 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 3. Non-anion gap metabolic acidosis in the setting of renal failure and urostomy. 4. Hyperkalemia is resolved. RECOMMENDATION: At this juncture, I have taken liberty to order a spot urine for electrolytes protein creatinine. I discussed with the medical team and advised him to change the IV fluids to D5 water with 150 mEq of sodium bicarb at 100 mL/h. I have also advised him to order a renal ultrasound to assess size of the kidney and to rule out obstruction. Antibiotic treatment with ceftriaxone as per medical team. Thank you for allowing me to participate in medical management of the patient. MD SANDRA Matamoros/JOSEY / [phone]
[2021-11-20] MEDS: cefTRIAXone sodium 1 GM in 0.9 % Sodium Chloride 50 ML IV (17:36)
[2021-11-20] MEDS: Enoxaparin Sodium 40 MG/0.4 ML SYRINGE SUBCUT (21:16)
[2021-11-21] MEDS: Melatonin 3 MG TABLET 6 MG PO (00:10)
[2021-11-21] MEDS: Albuterol Sulfate 90 MCG 8 GM INHALER 2 PUFF INHALE ×2 (00:48→16:34)
[2021-11-21 03:40] VITALS: BP 150/49; PULSE 79; RESP 16; TEMP 36.1; O2SAT 96
[2021-11-21 06:31] LABS: Basophils Percent Auto 0.4 % (0-2); Eosinophils Absolute Auto 0.1 X10*3/uL (0.0-0.4); Eosinophils Percent Auto 2.2 % (0-4); Hematocrit 29.5 % (42.0-52.0); Imm Gran Abs Auto 0.01 X10*3/uL (0.00-0.03); Imm Gran Pct Auto 0.2 % (0.0-0.4); Lymphocytes Absolute Auto 1.1 X10*3/uL (1.2-4.9); MANUAL DIFF FLAG SCAN; Mean Corpuscular HGB Conc 30.5 g/dl (31.0-36.0); Mean Corpuscular Hemoglobin 25.2 pg (27.0-33.0); Mean Corpuscular Volume 82.6 fL (80.0-98.0); Monocytes Absolute Auto 0.5 X10*3/uL (0.1-1.2); Monocytes Percent Auto 10.1 % (2-11); Neutrophils Absolute Auto 2.8 x10*3/uL (2.0-8.3); Neutrophils Percent Auto 63.1 % (45-73); PLT CLUMP 1; Red Blood Count 3.57 X10*6/uL (4.60-5.80); Red Cell Distribution Width 15.8 % (11.0-16.0); SCAN SMEAR FLAG 1
[2021-11-21 06:53] LABS: Alanine Aminotransferase 14 U/L (0-40); Albumin Level 3.4 g/dL (3.5-5.0); Alkaline Phosphatase 84 U/L (39-117); Anion Gap 13 (12-20); Aspartate Amino Transferase 11 U/L (5-37); Bilirubin Total 0.6 mg/dL (0.0-1.0); Blood Urea Nitrogen 15 mg/dL (9-16); Carbon Dioxide 29 mmol/L (22-29); Chloride 111 mmol/L (96-108); Creatinine Clr Calc Pharmacy 47.6; Estimated Glomerular Filt Rate 51; Glucose Fasting 113 mg/dL (60-99); Potassium 3.7 mmol/L (3.3-5.1); Sodium 149 mmol/L (135-145); Total Protein 6.2 g/dL (6.5-8.0)
[2021-11-21 07:07] LABS: Platelet Count 120 X10*3/uL (160-400); SLIDE REVIEW VERIFIED; White Blood Count 4.5 X10*3/uL (4.8-10.8)
[2021-11-21 07:58] VITALS: BP 177/79; PULSE 71; RESP 18; TEMP 36.1; O2SAT 95
[2021-11-21] MEDS: amLODIPine Besylate 10 MG TABLET PO (08:08)
[2021-11-21] MEDS: Acetaminophen 325 MG TABLET 650 MG PO (08:08)
[2021-11-21] MEDS: 0.9 % Sodium Chloride Flush 3 ML SYRINGE IVFLUSH ×2 (08:09→16:30)
[2021-11-21 09:06] VITALS: BP 177/79; PULSE 71; O2SAT 95
[2021-11-21 11:33] VITALS: BP 135/69; PULSE 58; RESP 18; TEMP 36.2; O2SAT 95
--- NOTE | 2021-11-21 12:01 | MHC.CM.PN ---
PER HOSPITALIST PT MEDICALLY CLEARED TO D/C TO STR, PT AGREEABLE TO GO TO [facility] AND TRANSPORT REQUESTED FOR 4PM W/ACTION AMBULANCE, CM CONTACTED PT'S SON JESUS AT NUMBER ON FILE TO UPDATE AND IS AGREEABLE TO PLAN.
[2021-11-21 13:08] LABS: COVID-19 Test Negative (Negative); IDNOW Serial# 16C4AD1C
--- NOTE | 2021-11-21 13:55 | P.DS_ITS ---
DS: Providers Provider Date of Service: 11/21/21 Date of admission: 11/17/21 21:02 Primary care physician: Nelson Pineda MD DS: Diagnosis Discharge Diagnosis (1) Metabolic encephalopathy: Status: Acute (2) ZINA (acute kidney injury): Status: Acute (3) HTN (hypertension): Status: Acute (4) Bladder cancer: Status: Acute DS: Summary Hospital Course Hospital Course: Chief Complaint: ? Altered mental status ?71-year-old male with a past medical history of hypertension, hyperlipidemia, CKD, obesity, history of urothelial cancer status post left nephroureterectomy with open bladder excision in November 2020; recurrent bladder cancer with muscle invasion status post multiple TURBT; status post urostomy bag by Dr. Mena; presented to the hospital today with a chief complaint of altered mental status. ? Spoke to the patient's son who mentioned that patient was noted to be not himself for the past 2 days; not keeping his urostomy bag; noted urine spill over; in general patient lives alone, independent of ADLs; had visiting nurses twice weekly; denies patient complaining of any pain; unclear if the patient has been eating and drinking over the past couple days.? Denies any concerns for fall or trauma.? Denies patient complaining of any chest pain or palpitations.? Denies patient having any signs of fever.? Review of all other systems is negative except mentioned above ER course: Per ER team patient urostomy bag has been placed; urinalysis was abnormal consistent with UTI; given antibiotics; also on labs noted to have hyperkalemia and acidosis with bicarb of 10.? Given 1 L of normal saline.? Follow-up lab showed improvement in the serum bicarb levels.? Admitted for further management. hospital course 71-year-old male with a past medical history of hypertension, hyperlipidemia, CKD, obesity, history of urothelial cancer status post left nephroureterectomy with open bladder excision in November 2020; recurrent bladder cancer with muscle invasion status post multiple TURBT; status post urostomy bag by Dr. Mena; presented to the hospital today with a chief complaint of altered mental status; active urinary sediment, patient admitted to medical floor with a diagnosis of toxic metabolic encephalopathy likely due to urinary tract infection, acute kidney injury and high-dose narcotic medication patient treated with IV fluids, IV ceftriaxone urine culture grew E coli sensitive to ceftriaxone, blood cultures x2 negative, narcotic medications were held patient confusion resolved currently awake alert answering questions appropriately due to complicated UTI with history of urothelial cancer and chronic urostomy bag patient is being discharge on by mouth Ceftin for total 10 days treatment. ZINA on chronic kidney disease stage 3/metabolic acidosis resolved with IV hydration Hypertension continue home medication amlodipine 5 mg and atenolol if noted to have elevated blood pressure may increase dose of amlodipine to 10 mg question compliance with home medication History of urothelial cancer status post left nephroureterectomy, continue urostomy bag and outpatient urology follow history of asthma stable continue home inhalers patient being discharged to rehab facility for less than 30 days due to generalized weakness Time Spent with Patient Time attestation: Total time spent providing and/or coordinating discharge services: Discharge coordination time: Greater than 30 minutes Quality: Safe Use of Opioids Does Pt have an Active Cancer Diagnosis on the Problem List?: No Quality: Stroke Does the patient have a stroke diagnosis?: No Physical Exam Vital Signs: Vital Signs: Last Vital Signs Temp 97.1 F 11/21/21 11:33 Pulse 58 11/21/21 11:33 Resp 18 11/21/21 11:33 BP 135/69 11/21/21 11:33 Pulse Ox 95 11/21/21 11:33 BMI result Body Mass Index 30.4 Const: Other: General awake alert x3, no acute distress. Neck no JVD. CVS regular rate rhythm, Respiratory lungs clear to auscultation, no respiratory distress, no wheeze, no rhonchi. Gastrointestinal abdomen soft, nontender, bowel sounds audible Extremities no edema. Neuro speech clear/nonfocal. musculoskeletal no deformity DS: Data Data Completed and Pending Completed studies during hospitalization [Text1]: Procedures Dilation of Right Ureter with Intraluminal Device, Via Natural or Artificial Opening Endoscopic (05/19/21) Extirpation of Matter from Right Ureter, Via Natural or Artificial Opening Endoscopic (05/19/21) Labs on day of discharge: Laboratory Results - last 24 hr 11/21/21 11/21/21 11/21/21 05:34 05:34 12:20 WBC 4.5 L RBC 3.57 L Hgb 9.0 L Hct 29.5 L MCV 82.6 MCH 25.2 L MCHC 30.5 L RDW 15.8 Plt Count 120 L MPV Not Reportable Immature Gran % (Auto) 0.2 Neut % (Auto) 63.1 Lymph % (Auto) 24.0 [place] % (Auto) 10.1 Eos % (Auto) 2.2 Baso % (Auto) 0.4 Lymph # (Auto) 1.1 L [place] # (Auto) 0.5 Eos # (Auto) 0.1 Baso # (Auto) 0.0 Abs Immat Gran (auto) 0.01 Absolute Neuts (auto) 2.8 Absolute Nucleated RBC 0.000 Nucleated RBC % (auto) 0.0 Smear Tech's Comments VERIFIED Sodium 149 H Potassium 3.7 Chloride 111 H Carbon Dioxide 29 Anion Gap 13 BUN 15 Creatinine 1.38 Estim Creat Clear Calc 47.6 Estimated GFR 51 Fasting Glucose 113 H Calcium 9.0 Total Bilirubin 0.6 AST 11 ALT 14 Alkaline Phosphatase 84 Total Protein 6.2 L Albumin 3.4 L COVID-19 ([facility]O) Negative COVID-19 Clin Com See Note Preliminary micro results at discharge 11/17/21 18:06 Blood Culture - Preliminary Blood - Venous No growth after 48 hours. 11/17/21 17:51 Blood Culture - Preliminary Blood - Venous No growth after 48 hours. Discharge Plan Discharge Patient Disposition: Xfer [facility] Discharge Diagnosis: toxic metabolic encephalopathy urinary tract infection acute on chronic kidney disease stage 3 history of urothelial cancer status post left nephroureterectomy Referrals: Nelson Pineda MD [Primary Care Provider] - 1 Week Discharge Medications: New melatonin 3 mg Tablet 6 mg PO BEDTIME PRN (Reason: Insomnia) Qty: 20 0RF cefuroxime axetil 250 mg tablet 250 mg PO BID 7 Days Qty: 14 0RF Continued atenolol 100 mg tablet 100 mg PO DAILY Qty: 30 3RF zolpidem 10 mg tablet 10 mg PO BEDTIME PRN (Reason: insomnia) 30 Days Qty: 30 1RF amlodipine 5 mg tablet 5 mg PO DAILY Qty: 90 0RF albuterol sulfate [Ventolin HFA] 90 mcg/actuation HFA aerosol inhaler 2 puff inhalation Q4H PRN (Reason: Wheezing) 0RF Discontinued oxycodone 20 mg tablet 1 tab PO BID-TID PRN (Reason: severe pain) 0RF Discharge Orders: Discharge Order (Routine); Ordered 11/21/21 Ordered By: Diogenes Costa Diet: advance to usual diet Activity on Discharge: As tolerated Stand Alone Forms: Patient Portal Discharge page Care Plan Goals: toxic metabolic encephalopathy resolved, did not require oxycodone since had no complaints of pain, may use low-dose oxycodone as needed, take Ceftin 250 mg 1 tablet twice daily for 7 more days for complicated UTI, hypertension with uncontrolled blood pressure follow blood pressure closely and increase dose of Norvasc to 10 mg daily if noted to have persistent elevated blood pressure being discharged to rehab facility for less than 30 days Health Concerns: continue all home medications as above Plan of Treatment: outpatient follow-up with primary care physician in 7-10 days Assessment: as per discharge summary
[2021-11-21 15:18] VITALS: BP 142/83; PULSE 87; RESP 16; TEMP 36.8; O2SAT 94
[2021-11-21 15:21] VITALS: BP 129/70; PULSE 50; RESP 16; TEMP 36.1; O2SAT 97
[2021-11-21] MEDS: cefTRIAXone sodium 1 GM in 0.9 % Sodium Chloride 50 ML IV (16:29)
[2021-11-21 16:54] LABS: Influenza A PCR NEGATIVE (Negative); Influenza B PCR NEGATIVE (Negative); Resp Syncy Virus RNA Qual PCR NEGATIVE (Negative); SARS COV2 PCR INHOUSE NEGATIVE (Negative)
== END 2021-11-21 18:25 | disposition skilled nursing facility (03) | DRG 689 ==
LOC: HO.ED 17:14 → HO.EDOVER 21:16 → HO.S3 11-18 18:47
PROVIDERS: Hospitalist; Admitting Provider Hospitalist; Emergency Provider Internal Medicine; PCP Internal Medicine; Visit Provider Hospitalist
DX: N39.0 Urinary tract infection, site not specified (principal); G93.41 Metabolic encephalopathy; E87.2 Acidosis; N18.30 Chronic kidney disease, stage 3 unspecified; F31.9 Bipolar disorder, unspecified; J45.909 Unspecified asthma, uncomplicated; B96.20 Unspecified Escherichia coli [E. coli] as the cause of diseases classified elsewhere; E11.22 Type 2 diabetes mellitus with diabetic chronic kidney disease; Z93.6 Other artificial openings of urinary tract status; Z85.51 Personal history of malignant neoplasm of bladder; Z91.19 Patient's noncompliance with other medical treatment and regimen; Z90.5 Acquired absence of kidney; Z88.1 Allergy status to other antibiotic agents; Z88.5 Allergy status to narcotic agent; Z88.8 Allergy status to other drugs, medicaments and biological substances; Z79.899 Other long term (current) drug therapy
CPT/HCPCS: 0241U; 36415; 71045; 80048; 80053; 80076; 81001; 82803; 83605; 83690; 84484; 85025; 87040; 87086; 87088; 87186; 87635; 93005; 96361; 96365; 96375; 97116; 97162; 99283; 99284; 99285; J0696; J1650; U0003; U0005

== ENCOUNTER 2021-12-03 20:02 | Inpatient (IN) | payer MEDICARE, MEDICAID, SELFPAY ==
--- NOTE | 2021-12-03 | ECG_ITS ---
Test Reason : SYNCOPE Blood Pressure : / mmHG Vent. Rate : 094 BPM Atrial Rate : 094 BPM P-R Int : 204 ms QRS Dur : 100 ms QT Int : 356 ms P-R-T Axes : 038 -18 037 degrees QTc Int : 445 ms Normal sinus rhythm Normal ECG When compared with ECG of 17-NOV-2021 17:28, Vent. rate has increased BY 31 BPM Referred By: Generic ED Physician Electronically Signed By:TRAV ELLIOTT
--- NOTE | ~2021-12-03 | CT_ITS ---
EXAMINATION: NONCONTRAST HEAD CT NONCONTRAST CERVICAL SPINE CT INDICATION INFORMATION: Acute mental status change status post fall COMPARISON: Head CT 01/28/2020 TECHNIQUE: Separate noncontrast CT examinations of the head and cervical spine were performed. Coronal and sagittal images were created for each examination at the technologist workstation. This CT examination was performed using dose optimization techniques as appropriate, variously including the following: *Automated exposure control *Adjustment of mA and/or kV according to patient size (this includes techniques or standardized protocols for targeted exams where dose is matched to indication/reason for exam; i.e. 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 No other intra or extra-axial fluid collection, hemorrhage, or mass. No ventriculomegaly. No midline shift or herniation. Basal cisterns are patent. [place]-white matter differentiation is maintained. No territorial encephalomalacia. Small chronic left lentiform nucleus and bilateral thalamic lacunar infarcts, unchanged. Proportional prominence of the ventricles and sulcal spaces is consistent with mild volume loss. Patchy periventricular and deep white matter hypoattenuation is consistent with mild small vessel ischemic changes. No calvarial fracture or soft tissue abnormality. The mastoid air cells and visualized portions of the paranasal sinuses are well aerated. CERVICAL SPINE: Alignment: Straightening of the normal cervical lordosis. Minimal retrolisthesis at C5-C6. No additional subluxation. Vertebra: No acute fracture. No prevertebral soft tissue swelling. Degenerative disc disease: Moderate multilevel degenerative disc disease with multilevel disc height loss, endplate sclerosis and proliferative change throughout the cervical spine most advanced at C5-C6. There is multilevel bilateral facet arthrosis and uncovertebral spurring. Multilevel central spinal canal narrowing noted though not optimally assessed via CT. Other findings: No cervical lymphadenopathy. Visualized major salivary glands and thyroid gland are unremarkable. Mild mosaic attenuation at the right lung apex, likely mild air trapping. CT/CT cervical spine wo con IMPRESSION: 1. No intracranial hemorrhage, calvarial fracture, or other acute intracranial abnormality. 2. No traumatic subluxation or acute cervical spine fracture.
--- NOTE | ~2021-12-03 | CT_ITS ---
EXAMINATION: CT ABDOMEN AND PELVIS WITHOUT CONTRAST CLINICAL INFORMATION: ARF COMPARISON: CT abdomen pelvis 05/19/2021 TECHNIQUE: Multidetector volumetric imaging was performed from the superior aspect of the liver through the pubic symphysis. Sagittal and coronal reformatted images were obtained on the technologist's workstation. This CT examination was performed using dose optimization techniques as appropriate, variously including the following: *Automated exposure control *Adjustment of mA and/or kV according to patient size (this includes techniques or standardized protocols for targeted exams where dose is matched to indication/reason for exam; i.e. extremities or head) *Use of iterative reconstruction technique The exam is degraded by marked motion artifact. DLP: 1567 mGy-cm FINDINGS: LUNG BASES: Right basilar atelectasis is present. Coronary calcifications are seen. LIVER, GALLBLADDER, AND BILIARY TREE: The liver is normal in size, shape, and attenuation. No focal hepatic lesion or biliary ductal dilatation is present. The gallbladder is unremarkable with no evidence of radiopaque gallstones, gallbladder wall thickening, or obvious pericholecystic inflammatory changes. PANCREAS: Unremarkable. SPLEEN: Unremarkable. ADRENAL GLANDS: Unremarkable. KIDNEYS AND URETERS: Status post left nephrectomy. The moderate hydronephrosis that had been present previously has resolved and there is now some minimal fullness in the right renal collecting system but no gross hydronephrosis. BLADDER: Patient status post cystectomy along with a prostatectomy. There has been interval additional pelvic and bowel surgery with multiple surgical clips and findings related to ileal conduit creation. An ostomy is present in the right lower quadrant. GASTROINTESTINAL TRACT: The small and large bowel are unremarkable aside from interval bowel surgery described above along with scattered colonic diverticula. The appendix is unremarkable. ABDOMINAL WALL: Right lower quadrant ostomy with. Small right inguinal hernia containing some fluid. LYMPH NODES: No retroperitoneal lymphadenopathy. VASCULAR: Unremarkable. PELVIC VISCERA: Status post cystoprostatectomy OSSEOUS STRUCTURES: Unremarkable. CT/CT abdomen pelvis wo con IMPRESSION: Solitary remaining right kidney with some mild collecting system prominence but the moderate hydronephrosis that was present in the past has resolved. Other findings described above. Fleischner guidelines were followed.
--- NOTE | ~2021-12-03 | XR_ITS ---
EXAMINATION: XR CHEST CLINICAL INFORMATION: Shortness of breath COMPARISON: Chest x-ray 11/16/2021 TECHNIQUE: Frontal view of the chest was obtained. FINDINGS: Redemonstrated elevation of the right hemidiaphragm. Mild right basilar streaky opacities compatible with atelectasis. Left lung is clear. Mild streaky opacity in the right lung apex likely atelectasis or scarring. No other focal airspace opacity. No pleural fluid collection. No pneumothorax. Cardiomediastinal silhouette is unchanged. No cardiomegaly or evidence pulmonary edema. No acute osseous injury. XR/XR chest 1V IMPRESSION: 1. Unchanged elevation the right hemidiaphragm with right basilar atelectasis. 2. Streaky right apical opacities likely atelectasis or scarring. No consolidation or effusions.
[2021-12-03 20:15] VITALS: BP 117/62; PULSE 94; RESP 18; TEMP 37.9; O2SAT 96; BMI 28.0
[2021-12-03 20:44] LABS: MANUAL DIFF FLAG NO
[2021-12-03 20:49] LABS: Basophils Percent Auto 0.4 % (0-2); Eosinophils Absolute Auto 0.2 X10*3/uL (0.0-0.4); Eosinophils Percent Auto 3.8 % (0-4); Hematocrit 26.8 % (42.0-52.0); Imm Gran Abs Auto 0.02 X10*3/uL (0.00-0.03); Imm Gran Pct Auto 0.4 % (0.0-0.4); Lymphocytes Absolute Auto 0.5 X10*3/uL (1.2-4.9); Mean Corpuscular HGB Conc 29.9 g/dl (31.0-36.0); Mean Corpuscular Hemoglobin 25.2 pg (27.0-33.0); Mean Corpuscular Volume 84.5 fL (80.0-98.0); Mean Platelet Volume 12.9 fL (9.4-12.4); Monocytes Absolute Auto 0.3 X10*3/uL (0.1-1.2); Monocytes Percent Auto 6.4 % (2-11); Neutrophils Absolute Auto 4.2 x10*3/uL (2.0-8.3); Platelet Count 203 X10*3/uL (160-400); Red Blood Count 3.17 X10*6/uL (4.60-5.80); Red Cell Distribution Width 15.9 % (11.0-16.0); White Blood Count 5.3 X10*3/uL (4.8-10.8)
[2021-12-03 21:08] LABS: Alanine Aminotransferase 7 U/L (0-40); Albumin Level 3.6 g/dL (3.5-5.0); Alkaline Phosphatase 77 U/L (39-117); Anion Gap 15 (12-20); Aspartate Amino Transferase 11 U/L (5-37); Bilirubin Total 0.7 mg/dL (0.0-1.0); Blood Urea Nitrogen 33 mg/dL (9-16); Calcium 8.8 mg/dL (8.4-10.2); Carbon Dioxide 17 mmol/L (22-29); Chloride 114 mmol/L (96-108); Creatinine Clr Calc Pharmacy 31.8; Estimated Glomerular Filt Rate 29; Glucose Random 104 mg/dL (60-115); Potassium 5.1 mmol/L (3.3-5.1); Sodium 141 mmol/L (135-145); Total Protein 6.1 g/dL (6.5-8.0)
--- NOTE | 2021-12-03 21:14 | ED.AMS ---
HPI - Altered Mental Status General Chief Complaint: Altered Mental Status Stated Complaint: fall Time Seen by Provider: 12/03/21 21:14 History of Present Illness HPI narrative: Patient is a 71 male with a history of bladder cancer. This any facility. Was found on the ground. Question as to the etiology patient denies any chest pain it feels weak. No nausea no vomiting. Has a history of bladder cancer status post bladder removal. Has a urostomy. Vaccinated for COVID. History of anemia. Sent in for further evaluation Related Data Home Medications Medication Instructions Recorded Confirmed albuterol sulfate 90 mcg/actuation 2 puff INHALATION Q4H PRN 05/19/21 11/17/21 aerosol inhaler (Ventolin HFA) Previous Rx's Medication Instructions Recorded atenolol 100 mg tablet 100 mg PO DAILY #30 tab 09/10/21 amlodipine 5 mg tablet 5 mg PO DAILY #90 tab 11/13/21 cefuroxime axetil 250 mg tablet 250 mg PO BID 7 Days #14 tab 11/21/21 melatonin 3 mg tablet 6 mg PO BEDTIME PRN #20 tab 11/21/21 zolpidem 10 mg tablet (Ambien) 10 mg PO BEDTIME PRN #10 tab 11/21/21 zolpidem 10 mg tablet 10 mg PO BEDTIME PRN 30 Days #30 11/24/21 tab Allergies Allergy/AdvReac Type Severity Reaction Status Date / Time piperacillin [From ZOSYN] Allergy Intermediate REDNESS/WARMTH Verified 09/04/21 14:07 TO IV SITE. tazobactam [From ZOSYN] Allergy Intermediate REDNESS/WARMTH Verified 09/04/21 14:07 TO IV SITE. ibuprofen Allergy Unknown Unknown Verified 09/04/21 14:07 lamotrigine [Lamictal] Allergy Unknown Unknown Verified 09/04/21 14:07 Anti-Inflammatory Enzyme Allergy Unknown rash on Uncoded 09/04/21 14:07 both legs Review of Systems Review of Systems: Positive generalized weakness Yes all other systems are reviewed and are negative PMFSH Past Medical History Attestation statement: The following information was validated with the patient. 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 Social History Social History Household Members: None Housing: Apartment Do you presently have visiting nurse or other home services: Yes Alcohol intake: never Patient Tobacco Use Status: Never used Tobacco Second Hand Smoke Exposure: No Advance Directives: Yes Advance Directives Date on File: 11/17/21 service: No Current occupational status: retired and disabled Physical Exam ED Vital Signs: Vital Signs - 24 hr 12/03/21 20:15 12/03/21 21:30 12/04/21 01:08 Temperature 100.2 F 98.9 F Pulse Rate 94 95 82 Respiratory Rate 18 23 H 18 Blood Pressure 117/62 130/56 L 102/47 L Pulse Oximetry 96 97 94 12/04/21 02:00 12/04/21 02:35 Temperature Pulse Rate 82 76 Respiratory Rate Blood Pressure 124/60 105/57 L Pulse Oximetry 100 100 BMI result Body Mass Index 28.0 Appearance: Alert. Oriented X3. No acute distress. Eyes: Pupils equal, round and reactive to light. ENT: Pharynx normal. Neck: Normal inspection. Neck supple. No lymph nodes noted. No crepitus CVS: Normal heart rate and rhythm. Pulses normal. Normal S1 and S2 Respiratory: No respiratory distress. Breath sounds normal. No Wheezing. No rales Abdomen: Soft and nontender. No rigidity. No distention. good BS x4 Skin: Skin warm and dry. Normal skin color. Normal skin turgor. Extremities: No lower extremity edema. Neurovascular intact to all extremities. No Lacerations. No Rash Neuro: Oriented X 3. No motor deficit. No sensory deficit. Moving all extermities. No slurred speech MDM - Altered Mental Status MDM Narrative Medical decision making narrative: Patient presented initially with having been fallen on the ground. Patient's BUN and creatinine was elevated consistent with having dehydration. White count is normal there is no shift. Patient's chest x-ray did not show any focal infiltrate. There was a low-grade temperature 100 degrees. Given Tylenol. Given IV fluids. Lactate and cultures were done. Lactate was less than 1. There is no evidence for severe sepsis. After IV fluids patient's mentation improved. Answering questions. Patient's chest x-ray did not show any focal infiltrate. Of note by 1:15 patient did have a slight drop in blood pressure to approximately 102/47 . Additional IV fluids was ordered. Urine was obtained. Rocephin was started for empiric coverage. On recheck patient's blood pressure is now 120/70. More likely the low blood pressure was in error or is secondary to dehydration. No evidence for sepsis. Patient's case discussed with the hospitalist team for admission. Patient's CPK was less than a 1000 there is no evidence for rhabdo. Currently in stable condition awaiting admissions Lab Data Result diagrams: 12/03/21 20:38 12/03/21 20:38 Labs: Lab Results 12/03/21 12/03/21 12/03/21 Range/Units 20:38 20:38 20:38 WBC 5.3 (4.8-10.8) X10*3/uL RBC 3.17 L (4.60-5.80) X10*6/uL Hgb 8.0 L (14.0-18.0) g/dl Hct 26.8 L (42.0-52.0) % MCV 84.5 (80.0-98.0) fL MCH 25.2 L (27.0-33.0) pg MCHC 29.9 L (31.0-36.0) g/dl RDW 15.9 (11.0-16.0) % Plt Count 203 D (160-400) X10*3/uL MPV 12.9 H (9.4-12.4) fL Immature Gran % (Auto) 0.4 (0.0-0.4) % Neut % (Auto) 79.0 H (45-73) % Lymph % (Auto) 10.0 L (20-40) % [place] % (Auto) 6.4 (2-11) % Eos % (Auto) 3.8 (0-4) % Baso % (Auto) 0.4 (0-2) % Lymph # (Auto) 0.5 L (1.2-4.9) X10*3/uL [place] # (Auto) 0.3 (0.1-1.2) X10*3/uL Eos # (Auto) 0.2 (0.0-0.4) X10*3/uL Baso # (Auto) 0.0 (0.0-0.2) X10*3/uL Abs Immat Gran (auto) 0.02 (0.00-0.03) X10*3/uL Absolute Neuts (auto) 4.2 (2.0-8.3) x10*3/uL Absolute Nucleated RBC 0.000 (0.0-0.012) X10*3/uL Nucleated RBC % (auto) 0.0 (0.0-0.2) /100WBC Sodium (135-145) mmol/L Potassium (3.3-5.1) mmol/L Chloride (96-108) mmol/L Carbon Dioxide (22-29) mmol/L Anion Gap (12-20) BUN (9-16) mg/dL Creatinine (0.5-1.4) mg/dL Estim Creat Clear Calc Estimated GFR Random Glucose (60-115) mg/dL Lactic Acid (0.5-2.0) mmol/L Calcium (8.4-10.2) mg/dL Total Bilirubin (0.0-1.0) mg/dL AST (5-37) U/L ALT (0-40) U/L Alkaline Phosphatase (39-117) U/L Total Creatine Kinase (38-174) U/L Total Protein (6.5-8.0) g/dL Albumin (3.5-5.0) g/dL Urine Color Urine Appearance Urine pH (5.0-8.0) Ur Specific [place] (1.005-1.025) Urine Protein (NEG-TRACE) MG/DL Urine Glucose (UA) (NEG) MG/DL Urine Ketones (NEG) MG/DL Urine Blood (NEG) Urine Nitrite (NEG) Ur Leukocyte Esterase (NEG) Urine RBC (0) /HPF Urine WBC (0-4) /HPF Ur Squamous Epith Cells /LPF Urine Bacteria /LPF Hyaline Casts /LPF Urine Mucus /LPF COVID-19 ([facility]) Negative (Negative) COVID-19 Clin Com See Note Influenza Type A (SAMANTHA) Negative (Negative) Influenza Type B (SAMANTHA) Negative (Negative) Influenza A & B Note See Note 12/03/21 12/03/21 12/03/21 Range/Units 20:38 22:17 22:18 WBC (4.8-10.8) X10*3/uL RBC (4.60-5.80) X10*6/uL Hgb (14.0-18.0) g/dl Hct (42.0-52.0) % MCV (80.0-98.0) fL MCH (27.0-33.0) pg MCHC (31.0-36.0) g/dl RDW (11.0-16.0) % Plt Count (160-400) X10*3/uL MPV (9.4-12.4) fL Immature Gran % (Auto) (0.0-0.4) % Neut % (Auto) (45-73) % Lymph % (Auto) (20-40) % [place] % (Auto) (2-11) % Eos % (Auto) (0-4) % Baso % (Auto) (0-2) % Lymph # (Auto) (1.2-4.9) X10*3/uL [place] # (Auto) (0.1-1.2) X10*3/uL Eos # (Auto) (0.0-0.4) X10*3/uL Baso # (Auto) (0.0-0.2) X10*3/uL Abs Immat Gran (auto) (0.00-0.03) X10*3/uL Absolute Neuts (auto) (2.0-8.3) x10*3/uL Absolute Nucleated RBC (0.0-0.012) X10*3/uL Nucleated RBC % (auto) (0.0-0.2) /100WBC Sodium 141 (135-145) mmol/L Potassium 5.1 D (3.3-5.1) mmol/L Chloride 114 H (96-108) mmol/L Carbon Dioxide 17 L (22-29) mmol/L Anion Gap 15 (12-20) BUN 33 H D (9-16) mg/dL Creatinine 2.27 H (0.5-1.4) mg/dL Estim Creat Clear Calc 31.8 Estimated GFR 29 Random Glucose 104 (60-115) mg/dL Lactic Acid 0.6 (0.5-2.0) mmol/L Calcium 8.8 (8.4-10.2) mg/dL Total Bilirubin 0.7 (0.0-1.0) mg/dL AST 11 (5-37) U/L ALT 7 (0-40) U/L Alkaline Phosphatase 77 (39-117) U/L Total Creatine Kinase 896 H (38-174) U/L Total Protein 6.1 L (6.5-8.0) g/dL Albumin 3.6 (3.5-5.0) g/dL Urine Color Urine Appearance Urine pH (5.0-8.0) Ur Specific [place] (1.005-1.025) Urine Protein (NEG-TRACE) MG/DL Urine Glucose (UA) (NEG) MG/DL Urine Ketones (NEG) MG/DL Urine Blood (NEG) Urine Nitrite (NEG) Ur Leukocyte Esterase (NEG) Urine RBC (0) /HPF Urine WBC (0-4) /HPF Ur Squamous Epith Cells /LPF Urine Bacteria /LPF Hyaline Casts /LPF Urine Mucus /LPF COVID-19 ([facility]) (Negative) COVID-19 Clin Com Influenza Type A (SAMANTHA) (Negative) Influenza Type B (SAMANTHA) (Negative) Influenza A & B Note 12/04/21 Range/Units 01:10 WBC (4.8-10.8) X10*3/uL RBC (4.60-5.80) X10*6/uL Hgb (14.0-18.0) g/dl Hct (42.0-52.0) % MCV (80.0-98.0) fL MCH (27.0-33.0) pg MCHC (31.0-36.0) g/dl RDW (11.0-16.0) % Plt Count (160-400) X10*3/uL MPV (9.4-12.4) fL Immature Gran % (Auto) (0.0-0.4) % Neut % (Auto) (45-73) % Lymph % (Auto) (20-40) % [place] % (Auto) (2-11) % Eos % (Auto) (0-4) % Baso % (Auto) (0-2) % Lymph # (Auto) (1.2-4.9) X10*3/uL [place] # (Auto) (0.1-1.2) X10*3/uL Eos # (Auto) (0.0-0.4) X10*3/uL Baso # (Auto) (0.0-0.2) X10*3/uL Abs Immat Gran (auto) (0.00-0.03) X10*3/uL Absolute Neuts (auto) (2.0-8.3) x10*3/uL Absolute Nucleated RBC (0.0-0.012) X10*3/uL Nucleated RBC % (auto) (0.0-0.2) /100WBC Sodium (135-145) mmol/L Potassium (3.3-5.1) mmol/L Chloride (96-108) mmol/L Carbon Dioxide (22-29) mmol/L Anion Gap (12-20) BUN (9-16) mg/dL Creatinine (0.5-1.4) mg/dL Estim Creat Clear Calc Estimated GFR Random Glucose (60-115) mg/dL Lactic Acid (0.5-2.0) mmol/L Calcium (8.4-10.2) mg/dL Total Bilirubin (0.0-1.0) mg/dL AST (5-37) U/L ALT (0-40) U/L Alkaline Phosphatase (39-117) U/L Total Creatine Kinase (38-174) U/L Total Protein (6.5-8.0) g/dL Albumin (3.5-5.0) g/dL Urine Color YELLOW Urine Appearance CLEAR Urine pH 7.0 (5.0-8.0) Ur Specific [place] 1.010 (1.005-1.025) Urine Protein NEG (NEG-TRACE) MG/DL Urine Glucose (UA) NEG (NEG) MG/DL Urine Ketones NEG (NEG) MG/DL Urine Blood 3+ H (NEG) Urine Nitrite NEG (NEG) Ur Leukocyte Esterase 1+ H (NEG) Urine RBC 5-9 H (0) /HPF Urine WBC 5-9 H (0-4) /HPF Ur Squamous Epith Cells 1+ /LPF Urine Bacteria 2+ /LPF Hyaline Casts 1-4 /LPF Urine Mucus 2+ /LPF COVID-19 ([facility]) (Negative) COVID-19 Clin Com Influenza Type A (SAMANTHA) (Negative) Influenza Type B (SAMANTHA) (Negative) Influenza A & B Note Discharge Plan Discharge Clinical Impression: Acute dehydration Patient Disposition: Admitted As Inpatient
[2021-12-03 21:30] VITALS: BP 130/56; PULSE 95; RESP 23; O2SAT 97
[2021-12-03 21:32] LABS: COVID-19 Test Negative (Negative); IDNOW Serial# 9DB6401D; Influenza A Negative (Negative); Influenza B2 Negative (Negative)
[2021-12-03] MEDS: 0.9 % Sodium Chloride 1,000 ML 999 ML IV (22:20)
[2021-12-03] MEDS: Acetaminophen 325 MG TABLET 650 MG PO (22:35)
[2021-12-03 22:42] LABS: Lactic Acid 0.6 mmol/L (0.5-2.0)
[2021-12-04] VITALS (11 sets, daily range): BP systolic 95–164; BP diastolic 47–65; PULSE 64–82; RESP 11–18; TEMP 36.2–37.3; O2SAT 94–100
[2021-12-04] MEDS: Albuterol Sulfate 90 MCG 8 GM INHALER 2 PUFF INHALE (00:59)
[2021-12-04 01:27] LABS: Appearance Urine CLEAR; Color Urine YELLOW; Glucose Urine UA NEG (NEG); Leukocyte Esterase Urine 1+ (NEG); Nitrite Urine NEG (NEG); UACC Culture Trigger YES; Urine Blood 3+ (NEG); Urine Ketones NEG (NEG); Urine Protein NEG (NEG-TRACE)
[2021-12-04 01:39] LABS: Bacteria Urine 2+ /LPF; Mucus Urine 2+ /LPF; Squamous Epithelial Cell Urine 1+ /LPF
--- NOTE | 2021-12-04 02:22 | PC.NURSE ---
Pt became hypotensive with SBP in 80s. HR remains in 80s. Dr. Razo aware. Pt medicated per AUG Pt is more alert and now oriented x 4 Will continue to monitor
[2021-12-04] MEDS: cefTRIAXone sodium 1 GM in 0.9 % Sodium Chloride 50 ML IV (02:32)
[2021-12-04] MEDS: 0.9 % Sodium Chloride 1,000 ML 999 ML IV ×3 (02:33→04:56)
[2021-12-04 06:16] LABS: MANUAL DIFF FLAG NO
[2021-12-04 06:22] LABS: Basophils Percent Auto 0.3 % (0-2); Eosinophils Absolute Auto 0.1 X10*3/uL (0.0-0.4); Eosinophils Percent Auto 3.9 % (0-4); Hematocrit 25.6 % (42.0-52.0); Hemoglobin 7.4 g/dl (14.0-18.0); Imm Gran Abs Auto 0.02 X10*3/uL (0.00-0.03); Imm Gran Pct Auto 0.7 % (0.0-0.4); Lymphocytes Absolute Auto 0.7 X10*3/uL (1.2-4.9); Lymphocytes Percent Auto 24.2 % (20-40); Mean Corpuscular HGB Conc 28.9 g/dl (31.0-36.0); Mean Corpuscular Hemoglobin 25.2 pg (27.0-33.0); Mean Corpuscular Volume 87.1 fL (80.0-98.0); Mean Platelet Volume 10.9 fL (9.4-12.4); Monocytes Absolute Auto 0.4 X10*3/uL (0.1-1.2); Monocytes Percent Auto 12.1 % (2-11); Neutrophils Absolute Auto 1.8 x10*3/uL (2.0-8.3); Neutrophils Percent Auto 58.8 % (45-73); Platelet Count 131 X10*3/uL (160-400); Red Blood Count 2.94 X10*6/uL (4.60-5.80); Red Cell Distribution Width 15.9 % (11.0-16.0); White Blood Count 3.1 X10*3/uL (4.8-10.8)
[2021-12-04] MEDS: Lactated Ringers 1,000 ML 100 ML IVCONT ×2 (06:30→15:39)
[2021-12-04] MEDS: Heparin Sodium,Porcine 5,000 UNIT/ML VIAL 5000 UNIT SUBCUT ×2 (06:31→18:42)
[2021-12-04 06:40] LABS: Blood Urea Nitrogen 30 mg/dL (9-16); Creatinine Clr Calc Pharmacy 39.1; Estimated Glomerular Filt Rate 36; Glucose Random 97 mg/dL (60-115)
--- NOTE | 2021-12-04 06:56 | P.HPHOSP_ITS ---
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 of note patient was discharged from the hospital on 11/21 after being found altered secondary to urinary tract infection. He was sent to rehab facility, patient reports that he left the rehab facility feeling better but today he was outside his house, he was trying to get into the house, somehow lost consciousness. Patient does not remember much history around the episode, report that he only remembered wanting to go inside the house. He does not remember how he was feeling before or after. patient denies any chest pain, no palpitations prior to syncopized. Patient otherwise denies having any chest pain, no shortness of breath, no headache or change in vision, no abdominal pain nausea or vomiting, no diarrhea constipation, no urinary symptoms, no change in urine in the urostomy bag. No lower extremity edema. On arrival to the ED vitals were noted to be unremarkable labs are significant for WBC count of 5.3, hemoglobin of 8.0 with a baseline of around 10, chloride of 114, creatinine of 2.27 with a baseline of 1.38, CPK of 896, UA positive for leukocyte Estrace, WBC, abdominal CT shows solitary remaining right kidney with some mild collecting system prominence but the moderate hydronephrosis that was present in the past has resolved. 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 Surgical History History of bladder surgery History of cystoscopy History of left nephrectomy (~11/29/20) Hx of total cystectomy (~08/03/21) Social History Household Members: None Housing: Apartment Do you presently have visiting nurse or other home services: Yes Alcohol intake: never Patient Tobacco Use Status: Never used Tobacco Second Hand Smoke Exposure: No Advance Directives: Yes Advance Directives Date on File: 11/17/21 service: No Current occupational status: retired and disabled Meds Allergies Allergy/AdvReac Type Severity Reaction Status Date / Time piperacillin [From ZOSYN] Allergy Intermediate REDNESS/WARMTH Verified 09/04/21 14:07 TO IV SITE. tazobactam [From ZOSYN] Allergy Intermediate REDNESS/WARMTH Verified 09/04/21 14:07 TO IV SITE. ibuprofen Allergy Unknown Unknown Verified 09/04/21 14:07 lamotrigine [Lamictal] Allergy Unknown Unknown Verified 09/04/21 14:07 Anti-Inflammatory Enzyme Allergy Unknown rash on Uncoded 09/04/21 14:07 both legs Active Medications: Current Medications Acetaminophen (Acetaminophen 325 Mg Tablet) 650 mg PO Q6H PRN PRN Reason: Pain, Mild (Pain Scale 1-3) Docusate Sodium (Docusate Sodium 100 Mg Capsule) 100 mg PO DAILY PRN PRN Reason: Constipation Heparin Sodium (Porcine) (Heparin Sodium,Porcine 5,000 Unit/Ml Vial) 5,000 unit SUBCUT Q12H [facility] Last Admin: 12/04/21 06:31 Dose: 5,000 unit Documented by: Ceftriaxone Sodium 1 gm/ (Sodium Chloride) 50 mls @ 100 mls/hr IV Q24H [facility] Lactated Ringer's (Lr) 1,000 mls @ 100 mls/hr IVCONT .Q10H [facility] Last Admin: 12/04/21 06:30 Dose: 100 mls/hr Documented by: Ondansetron HCl (Ondansetron Hcl 4 Mg/2 Ml Vial) 4 mg IVPUSH Q8H PRN PRN Reason: Nausea and Vomiting Sodium Chloride (0.9 % Sodium Chloride Flush 3 Ml Syringe) 3 ml IVFLUSH QSHIFT [facility] Home Medications Medication Instructions Recorded Confirmed Last Taken Type albuterol sulfate 90 mcg/actuation 2 puff INHALATION Q4H PRN 05/19/21 11/17/21 Unknown History aerosol inhaler (Ventolin HFA) Physical Exam Vital Signs and Narrative: Vital Signs: Last Vital Signs Temp 97.8 F 12/04/21 04:56 Pulse 70 12/04/21 06:13 Resp 11 L 12/04/21 06:13 BP 136/63 12/04/21 06:13 Pulse Ox 96 12/04/21 06:13 Oxygen Flow Rate 4 12/03/21 20:15 BMI result Body Mass Index 28.0 Const: General: cooperative and no acute distress Orientation /consciousness: patient oriented x3 Eyes: General: appearance normal, both eyes and all related structures Pupils: Equal, round and reactive pupils present Resp: Effort & Inspection: normal respiratory effort Auscultation: clear to auscultation bilaterally Cardio: Rate: regular rate Rhythm: regular rhythm GI: Palpation (GI): Soft to palpation Auscultation: normal bowel sounds Skin: General skin exam: no rashes or lesions noted Neuro: General: patient oriented x3 Cranial nerves: Yes Equal, round and reactive pupils present Cognition (Neuro): normal cognition Extrem: General: Yes normal to inspection and Yes no pedal edema Results Labs CBC and Chem 7: 12/04/21 06:10 12/04/21 06:10 Labs: Laboratory Results - last 24 hr 12/03/21 12/03/21 12/03/21 20:38 20:38 20:38 MCV 84.5 MCH 25.2 L MCHC 29.9 L RDW 15.9 Plt Count 203 D MPV 12.9 H Immature Gran % (Auto) 0.4 Neut % (Auto) 79.0 H Lymph % (Auto) 10.0 L [place] % (Auto) 6.4 Eos % (Auto) 3.8 Baso % (Auto) 0.4 Lymph # (Auto) 0.5 L [place] # (Auto) 0.3 Eos # (Auto) 0.2 Baso # (Auto) 0.0 Abs Immat Gran (auto) 0.02 Absolute Neuts (auto) 4.2 Absolute Nucleated RBC 0.000 Nucleated RBC % (auto) 0.0 Anion Gap Estim Creat Clear Calc Estimated GFR Random Glucose Lactic Acid Calcium Total Bilirubin AST ALT Alkaline Phosphatase Total Creatine Kinase Total Protein Albumin Urine Color Urine Appearance Urine pH Ur Specific [place] Urine Protein Urine Glucose (UA) Urine Ketones Urine Blood Urine Nitrite Ur Leukocyte Esterase Urine RBC Urine WBC Ur Squamous Epith Cells Urine Bacteria Hyaline Casts Urine Mucus COVID-19 (FAUSTO) Negative COVID-19 Clin Com See Note Influenza Type A (SAMANTHA) Negative Influenza Type B (SAMANTHA) Negative Influenza A & B Note See Note 12/03/21 12/03/21 12/03/21 20:38 22:17 22:18 MCV MCH MCHC RDW Plt Count MPV Immature Gran % (Auto) Neut % (Auto) Lymph % (Auto) [place] % (Auto) Eos % (Auto) Baso % (Auto) Lymph # (Auto) [place] # (Auto) Eos # (Auto) Baso # (Auto) Abs Immat Gran (auto) Absolute Neuts (auto) Absolute Nucleated RBC Nucleated RBC % (auto) Anion Gap 15 Estim Creat Clear Calc 31.8 Estimated GFR 29 Random Glucose 104 Lactic Acid 0.6 Calcium 8.8 Total Bilirubin 0.7 AST 11 ALT 7 Alkaline Phosphatase 77 Total Creatine Kinase 896 H Total Protein 6.1 L Albumin 3.6 Urine Color Urine Appearance Urine pH Ur Specific [place] Urine Protein Urine Glucose (UA) Urine Ketones Urine Blood Urine Nitrite Ur Leukocyte Esterase Urine RBC Urine WBC Ur Squamous Epith Cells Urine Bacteria Hyaline Casts Urine Mucus COVID-19 (FAUSTO) COVID-19 Clin Com Influenza Type A (SAMANTHA) Influenza Type B (SAMANTHA) Influenza A & B Note 12/04/21 12/04/21 12/04/21 01:10 06:10 06:10 MCV 87.1 MCH 25.2 L MCHC 28.9 L RDW 15.9 Plt Count 131 L D MPV 10.9 Immature Gran % (Auto) 0.7 H Neut % (Auto) 58.8 Lymph % (Auto) 24.2 [place] % (Auto) 12.1 H Eos % (Auto) 3.9 Baso % (Auto) 0.3 Lymph # (Auto) 0.7 L [place] # (Auto) 0.4 Eos # (Auto) 0.1 Baso # (Auto) 0.0 Abs Immat Gran (auto) 0.02 Absolute Neuts (auto) 1.8 L Absolute Nucleated RBC 0.000 Nucleated RBC % (auto) 0.0 Anion Gap Estim Creat Clear Calc 39.1 Estimated GFR 36 Random Glucose 97 Lactic Acid Calcium 8.0 L D Total Bilirubin AST ALT Alkaline Phosphatase Total Creatine Kinase Total Protein Albumin Urine Color YELLOW Urine Appearance CLEAR Urine pH 7.0 Ur Specific [place] 1.010 Urine Protein NEG Urine Glucose (UA) NEG Urine Ketones NEG Urine Blood 3+ H Urine Nitrite NEG Ur Leukocyte Esterase 1+ H Urine RBC 5-9 H Urine WBC 5-9 H Ur Squamous Epith Cells 1+ Urine Bacteria 2+ Hyaline Casts 1-4 Urine Mucus 2+ COVID-19 (FAUSTO) COVID-19 Clin Com Influenza Type A (SAMANTHA) Influenza Type B (SAMANTHA) Influenza A & B Note Imaging Radiologist's Impressions: Impressions Abdomen/Pelvis CT 12/03/21 22:21 IMPRESSION: Solitary remaining right kidney with some mild collecting system prominence but the moderate hydronephrosis that was present in the past has resolved. Other findings described above. Fleischner guidelines were followed. Assessment and Plan (1) ZINA (acute kidney injury): Status: Acute (2) UTI (urinary tract infection): Status: Acute (3) Syncope: Status: Acute Plan 71-year-old male with past medical history as mentioned above presents to the hospital after a syncopal episode # ZINA - Likely secondary to UTI as well as dehydration - will treat with IV fluids and antibiotics - follow BMP # acute on recurrent UTIs - patient with history of urostomy bag - was treated with IV antibiotics - infectious disease consulted for possible chronic antibiotics # syncope - patient does not know any of the events surrounding this episode - likely secondary to his dehydration as well as ZINA and UTI - EKG shows no significant abnormality - will place on telemetry DVT prophylaxis: Heparin subQ Quality Stroke Does the patient have a stroke diagnosis?: No VTE Prior VTE?: No VTE Risk Level:: Medical - moderate - high VTE Device Contraindication: Treatment Not Indicated VTE Drug Contraindication: N/A - Med Ordered
[2021-12-04 06:57] LABS: Anion Gap 11 (12-20); Carbon Dioxide 18 mmol/L (22-29); Chloride 119 mmol/L (96-108); Potassium 4.9 mmol/L (3.3-5.1); Sodium 143 mmol/L (135-145)
[2021-12-04 07:49] LABS: Glucose, Whole Blood 85 mg/dL (60-115)
--- NOTE | 2021-12-04 08:23 | PHA.MEDREC ---
Pharmacy Consult ? Medication Reconciliation Pharmacy has completed the medication reconciliation. Patient reported medications. Does not know when the last time he took medications was. Calli Starr, PharmD
--- NOTE | 2021-12-04 11:15 | MHC.CM.PN ---
PT REPORTS HE LIVES IN [facility] IN [place] HE REPORTS HE HAS MEALS ON WHEELS AND USED TO HAVE ENHABIT VNA HE REPORTS THE VNA DISCHARGED HIM RECENTLY AND HE DOES NOT FEEL HE IS ABLE TO MANAGE HIS OSTOMY ON HIS OWN AND DOES NOT KNOW HOW TO ORDER SUPPLIES [place] REPORTS THE LAST TIME HE WAS DISCHARGED (11/21/21) HE WENT TO [facility]. HE REPORTS THIS WAS NOT A GOOD EXPERIENCE AND HE IS NOT INTERESTED IN GOING TO STR AGAIN HE REPORTS HE FEELS HE GOT WORSE THERE BECAUSE HE SPENT MOST OF THE TIME IN BED OR A CHAIR HE WOULD LIKE TO HAVE VNA AGAIN FOR ALF AND IS INTERESTED IN HOME PT IF INDICATED PT REPORTS HE IS COVID-19 VACCINATED WITH MODERNA X 3 PCP: DONNA BUSTOS HCP ON FILE IMM DELIVERED, COPY SENT TO [facility] CURRENT DC PLAN IS HOME VS HOME WITH SERVICES REFERRAL MADE TO ENHABIT VNA IN CASE SERVICES ARE WARRANTED FAMILY TO TRANSPORT
--- NOTE | 2021-12-04 12:54 | W.PM.IDCN ---
History of Present Illness Data of Consult Service Date: 12/04/21 Requesting physician: Diogenes Costa Primary Care Provider: Nelson Pineda MD [facility] Reason for consult: syncope?infection He presents with weakness and syncope outside house. He had surgery with urostomy bag for uroepithelial cancer 11/2020 with left ureteronephrectomy. He has no fever or chill. He had been seen in October for E coli urine and received cephalosporin. 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 Chronic kidney disease (CKD), stage III (moderate) CKD (chronic kidney disease), stage III Dermatitis Hematuria Hematuria HLD (hyperlipidemia) HTN (hypertension) Hydronephrosis Hyperkalemia Hypertension Hypertension, uncontrolled Insomnia Lumbar degenerative disc disease Metabolic encephalopathy Obesity (BMI 30-39.9) Presence of urostomy Pruritic erythematous rash 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 Family history: reviewed and not pertinent Surgical History Surgical History History of bladder surgery History of cystoscopy History of left nephrectomy (~11/29/20) Hx of total cystectomy (~08/03/21) Social History Social History Household Members: None Housing: Apartment Do you presently have visiting nurse or other home services: Yes Alcohol intake: never Patient Tobacco Use Status: Never used Tobacco Second Hand Smoke Exposure: No Use of substances other than those prescribed or required for medical reasons: No Advance Directives: Yes Advance Directives Date on File: 11/17/21 service: No Current occupational status: retired and disabled Meds Allergies Allergy/AdvReac Type Severity Reaction Status Date / Time piperacillin [From ZOSYN] Allergy Intermediate REDNESS/WARMTH Verified 09/04/21 14:07 TO IV SITE. tazobactam [From ZOSYN] Allergy Intermediate REDNESS/WARMTH Verified 09/04/21 14:07 TO IV SITE. ibuprofen Allergy Unknown Unknown Verified 09/04/21 14:07 lamotrigine [Lamictal] Allergy Unknown Unknown Verified 09/04/21 14:07 Anti-Inflammatory Enzyme Allergy Unknown rash on Uncoded 09/04/21 14:07 both legs Active Medications: Current Medications Acetaminophen (Acetaminophen 325 Mg Tablet) 650 mg PO Q6H PRN PRN Reason: Pain, Mild (Pain Scale 1-3) Docusate Sodium (Docusate Sodium 100 Mg Capsule) 100 mg PO DAILY PRN PRN Reason: Constipation Heparin Sodium (Porcine) (Heparin Sodium,Porcine 5,000 Unit/Ml Vial) 5,000 unit SUBCUT Q12H [facility] Last Admin: 12/04/21 06:31 Dose: 5,000 unit Documented by: Ceftriaxone Sodium 1 gm/ (Sodium Chloride) 50 mls @ 100 mls/hr IV Q24H [facility] Lactated Ringer's (Lr) 1,000 mls @ 100 mls/hr IVCONT .Q10H [facility] Last Admin: 12/04/21 06:30 Dose: 100 mls/hr Documented by: Ondansetron HCl (Ondansetron Hcl 4 Mg/2 Ml Vial) 4 mg IVPUSH Q8H PRN PRN Reason: Nausea and Vomiting Pharmacy Consult (Consult Rx Perform Med Rec) 1 each MISCELLANE ONCE PRN PRN Reason: Consult order Sodium Chloride (0.9 % Sodium Chloride Flush 3 Ml Syringe) 3 ml IVFLUSH QSHIFT [facility] Last Admin: 12/04/21 12:38 Dose: Not Given Documented by: Home Medications Medication Instructions Recorded Confirmed Last Taken Type albuterol sulfate 90 mcg/actuation 2 puff INHALATION Q4H PRN 05/19/21 12/04/21 Unknown History aerosol inhaler (Ventolin HFA) oxycodone 20 mg tablet 1 tab PO BID-TID PRN 12/04/21 12/04/21 Unknown History Physical Exam Vital Signs: Vital Signs: Last Vital Signs Temp 97.7 F 12/04/21 12:28 Pulse 72 12/04/21 12:28 Resp 15 12/04/21 12:28 BP 164/65 H 12/04/21 12:28 Pulse Ox 98 12/04/21 12:28 Oxygen Flow Rate 4 12/03/21 20:15 BMI result Body Mass Index 28.0 Const: General: cooperative HEENT: Face and sinus: Yes normal facial exam Resp: Effort & Inspection: normal respiratory effort Cardio: Rate: regular rate Rhythm: regular rhythm GI: Palpation (GI): Soft to palpation and nontender Extrem: General: Yes normal to inspection Results Labs CBC & Chem 7: 12/04/21 06:10 12/04/21 06:10 Labs: Short CBC 12/03/21 12/04/21 Range/Units 20:38 06:10 WBC 5.3 3.1 L (4.8-10.8) X10*3/uL Hgb 8.0 L 7.4 L (14.0-18.0) g/dl Hct 26.8 L 25.6 L (42.0-52.0) % Plt Count 203 D 131 L D (160-400) X10*3/uL BMP 12/03/21 12/04/21 20:38 06:10 Sodium 141 143 Potassium 5.1 D 4.9 Chloride 114 H 119 H Carbon Dioxide 17 L 18 L BUN 33 H D 30 H Creatinine 2.27 H 1.85 H Calcium 8.8 8.0 L D Cardiac Enzymes 12/03/21 Range/Units 22:17 Total Creatine Kinase 896 H (38-174) U/L Liver Function 12/03/21 Range/Units 20:38 Total Bilirubin 0.7 (0.0-1.0) mg/dL AST 11 (5-37) U/L ALT 7 (0-40) U/L Alkaline Phosphatase 77 (39-117) U/L Albumin 3.6 (3.5-5.0) g/dL Urine 12/04/21 Range/Units 01:10 Urine Color YELLOW Urine Appearance CLEAR Urine pH 7.0 (5.0-8.0) Ur Specific [place] 1.010 (1.005-1.025) Urine Protein NEG (NEG-TRACE) MG/DL Urine Glucose (UA) NEG (NEG) MG/DL Assessment and Plan (1) Syncope: Status: Acute He has syncope as primary event. 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
--- NOTE | 2021-12-04 14:06 | CONS_ITS ---
DATE OF SERVICE: REASON FOR CONSULTATION: Acute renal failure. I was called to see this patient to assist in management of acute renal failure superimposed on chronic kidney disease. HISTORY OF PRESENT ILLNESS: Mateus is known to our service. He is a 71-year-old man with a history of hypertension, diabetes mellitus, and urothelial cancer, status post left nephroureterectomy with urostomy bag. He has a solitary right kidney and has had obstruction in the past, requiring cystoscopy and stent placement. Baseline creatinine has been fluctuating between 1.2 to 1.5 mg/dL. He comes in because of altered mentation and at the time of admission was found to have acute kidney injury with a creatinine of 2.27 during this consultation. Ongoing medical problems include history of acute kidney injury; chronic kidney disease, stage 3; asthma; hypertension; diabetes mellitus; urothelial cancer, status post left nephrectomy; hypertension; obesity; and diabetes mellitus. FAMILY HISTORY: Not significant for this admission, although father had hypertension and coronary artery disease. He is . SURGICAL HISTORY: Include bladder surgery, cystoscopy, left nephrectomy and total cystectomy with urostomy bag placement. SOCIAL HISTORY: He does not smoke. No history of alcohol abuse. He is retired. MEDICATIONS: At home included albuterol. ALLERGIES: HE IS ALLERGIC TO ZOSYN, IBUPROFEN, LAMICTAL. MEDICATIONS: All the current medications reviewed. REVIEW OF SYSTEMS: Shows some confusion at home. No headache, nausea, or vomiting. No abdominal pain, diarrhea, constipation. No urinary symptoms. No fever. No rash. No polyuria or polydipsia. PHYSICAL EXAMINATION: GENERAL: Mateus is a 71-year-old man. He is lying flat, comfortable, not in any distress. NECK: Supple. No JVD. Mucosa is dry. LUNGS: Air entry equal with few scattered rhonchi. HEART: S1, S2 heard. No gallop. ABDOMEN: Soft, nontender. There is an ostomy bag on the right lower quadrant. NEURO: Alert and awake. EXTREMITIES: Trace edema. No rash. No clubbing. VITAL SIGNS: Blood pressure 104/53, pulse 100 per minute. He did have a relatively low blood pressure earlier. LABORATORY DATA: Hemoglobin 7.4, platelets 131, WBC 3.1. Sodium 143, potassium 4.9, CO2 18, BUN 30, creatinine 1.85, calcium 8.0. Urine with hematuria and leukocyte esterase, wbc's, no rbc's were present. No significant proteinuria. CT scan showed solitary right kidney. No hydronephrosis. IMPRESSION: A 71-year-old man with a solitary right kidney, status post left nephrectomy with chronic kidney disease with a baseline creatinine of 1.2 to 1.7 mg/dL currently. ASSESSMENT: Acute kidney injury. Acute kidney injury is most likely due to hypoperfusion from volume depletion. Hypotension could be a contributing factor as well. There is no evidence of obstruction based on the CAT scan. My recommendation is to cautiously hydrate him. I agree with current IV fluids. Keep intake more than the output. Maintain systolic blood pressure more than 100 mmHg. Avoid nephrotoxic agents and avoid hypotension. The renal function should return to baseline with hydration. There is no reason to be believe he has any active glomerulonephritis based on bland urinary sediments. We will follow him closely with the team. Yuriy Gandara MD BPA/MODL / [id number]
--- NOTE | 2021-12-04 14:21 | PM.EVENT ---
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 urothelial cancer status post left nephroureterectomy with open bladder excision in November 2020, recurrent bladder cancer with muscle invasion status post multiple TURP, status post urostomy bag, presents the hospital after losing consciousness at home.? of note patient was discharged from the hospital on 11/21 after being found altered secondary to urinary tract infection.? He was sent to rehab facility, patient reports that he left the rehab facility feeling better but today he was outside his house, he was trying to get into the house, somehow lost consciousness.? Patient does not remember much history around the episode, report that he only remembered wanting to go inside the house.? He does not remember how he was feeling before or after.? patient denies any chest pain, no palpitations prior to syncopized. ? Patient otherwise denies having any chest pain, no shortness of breath, no headache or change in vision, no abdominal pain nausea or vomiting, no diarrhea constipation, no urinary symptoms, no change in urine in the urostomy bag.? No lower extremity edema.? On arrival to the ED vitals? were noted to be unremarkable ?labs are significant for WBC count of 5.3, hemoglobin of 8.0 with a baseline of around? 10, chloride of 114, creatinine of 2.27 with a baseline of 1.38, CPK of 896, UA positive for leukocyte Estrace, WBC, ?abdominal CT shows solitary remaining right kidney with some mild collecting system prominence but the moderate hydronephrosis that was present in the past has resolved. #? syncope ? patient denies symptoms of lightheadedness dizziness, chest pain prior to syncope, he was dropped home by his son and was trying to open the door with the keys when he passed out continue tele monitor, EKG showed no acute abnormality showed tachycardia. CT head and C-spine negative , no evidence of stroke. use of high dose oxycodone,will lower dose of oxycodone low blood pressures on arrival question orthostatic blood pressures, not obtained, question related to anemia, doubt underlying infection cause of syncope. placed on Procrit follow CBC no hx of sz # ZINA on chronic kidney disease stage 3 creatinine 2.27 on arrival trending down to 1.85 with IV fluids, likely pre renal, CT abdomen showed no hydronephrosis urostomy with clear urine, consult Nephrology and follow BMP #?acute on recurrent UTIs -? patient with history of urostomy bag, patient asymptomatic UA mildly positive, on IV ceftriaxone day [address] Ward she recommend Ceftin for 10 days, hydration and she recommend to search for alternative causes for syncope suggest malignancy or cardiac # acute on chronic anemia likely related to underlying chronic kidney disease, check iron studies, stool guaiacs, follow CBC, Procrit given # htn hold hold meds atenolol and norvasc follow bp ?DVT prophylaxis:? Heparin subQ
[2021-12-04] MEDS: Zolpidem Tartrate 5 MG TABLET 10 MG PO (22:13)
[2021-12-05] MEDS: cefTRIAXone sodium 1 GM in 0.9 % Sodium Chloride 50 ML IV (01:54)
[2021-12-05] MEDS: Lactated Ringers 1,000 ML 100 ML IVCONT (01:54)
[2021-12-05 03:21] VITALS: BP 137/66; PULSE 68; RESP 16; TEMP 36.2; O2SAT 96
[2021-12-05] MEDS: Heparin Sodium,Porcine 5,000 UNIT/ML VIAL 5000 UNIT SUBCUT (05:45)
[2021-12-05 06:21] LABS: Hematocrit 24.8 % (42.0-52.0); Hemoglobin 7.4 g/dl (14.0-18.0); Mean Corpuscular HGB Conc 29.8 g/dl (31.0-36.0); Mean Corpuscular Hemoglobin 25.3 pg (27.0-33.0); Mean Corpuscular Volume 84.6 fL (80.0-98.0); Mean Platelet Volume 11.8 fL (9.4-12.4); Platelet Count 140 X10*3/uL (160-400); Red Blood Count 2.93 X10*6/uL (4.60-5.80); White Blood Count 2.7 X10*3/uL (4.8-10.8)
[2021-12-05 06:44] LABS: Anion Gap 8 (12-20); Blood Urea Nitrogen 19 mg/dL (9-16); Carbon Dioxide 19 mmol/L (22-29); Chloride 120 mmol/L (96-108); Creatinine Clr Calc Pharmacy 51.6; Estimated Glomerular Filt Rate 50; Glucose Random 89 mg/dL (60-115); Iron 14 mcg/dL (45-160); Percent Iron Saturation 6 % (15-50); Potassium 4.3 mmol/L (3.3-5.1); Sodium 143 mmol/L (135-145); Total Iron Binding Capacity 238 mcg/dL (228-428); Unsaturated Iron Binding 224 ug/dL
[2021-12-05 07:00] LABS: Ferritin 44 ng/mL (20-250)
[2021-12-05 07:41] VITALS: BP 135/68; PULSE 66; RESP 18; TEMP 36.6; O2SAT 98
[2021-12-05] MEDS: atenoloL 25 MG TABLET PO (08:06)
[2021-12-05] MEDS: Docusate Sodium 100 MG CAPSULE PO (08:06)
[2021-12-05] MEDS: Ferrous Sulfate 324 MG TABLET.DR PO (08:07)
--- NOTE | 2021-12-05 08:35 | PC.NURSE ---
Vitor texted Dr. Kirk concerning pt insisting on an enema. Awaiting response.
[2021-12-05 08:37] VITALS: BP 135/68; PULSE 66; O2SAT 98
[2021-12-05] MEDS: bisacodyL 10 MG SUPP.RECT PR (09:47)
--- NOTE | 2021-12-05 09:53 | HO.PM.IMPN ---
Subjective Subjective Date of Service: 12/05/21 Interval History: Kidney function improving Complaining of constipation no overnight events Review of Systems No fever, chills or weakness No chest pain, palpitation No shortness of breath or coughing No abdominal pain, nausea or vomiting but having constipation No urinary symptoms No any rash or wounds Physical Exam Vital Signs: Vital Signs: Last Vital Signs Temp 97.8 F 12/05/21 07:41 Pulse 66 12/05/21 08:37 Resp 18 12/05/21 07:41 BP 135/68 12/05/21 08:37 Pulse Ox 98 12/05/21 08:37 Oxygen Flow Rate 4 12/03/21 20:15 BMI result Body Mass Index 28.0 Const: Other: Constitutional : Alert, oriented,in mild distress from constipation Neck : Normal inspection, Supple Cardiovascular : RRR, no JVP, no lower extremity edema Respiratory : fair bilateral air entry, no crackles, wheezes or rhonchi Gastrointestinal: soft, lax, Normal bowel sounds, Non tender Skin : Warm, Dry Neurological : Alert & oriented x3, No focal deficit Objective Data Active Medications Acetaminophen (Acetaminophen 325 Mg Tablet) 650 mg PO Q6H PRN PRN Reason: Pain, Mild (Pain Scale 1-3) Albuterol Sulfate (Albuterol Sulfate 90 Mcg 8 Gm Inhaler) 2 puff INHALE Q4H PRN PRN Reason: Wheezing Atenolol (Atenolol 25 Mg Tablet) 25 mg PO DAILY [facility]; Protocol Last Admin: 12/05/21 08:06 Dose: 25 mg Documented by: DIVYA Docusate Sodium (Docusate Sodium 100 Mg Capsule) 100 mg PO DAILY PRN PRN Reason: Constipation Last Admin: 12/05/21 08:06 Dose: 100 mg Documented by: DIVYA Ferrous Sulfate (Ferrous Sulfate 324 Mg Tablet.Dr) 324 mg PO DAILY [facility] Last Admin: 12/05/21 08:07 Dose: 324 mg Documented by: DIVYA Heparin Sodium (Porcine) (Heparin Sodium,Porcine 5,000 Unit/Ml Vial) 5,000 unit SUBCUT Q12H [facility] Last Admin: 12/05/21 05:45 Dose: 5,000 unit Documented by: SCOTTIE Ceftriaxone Sodium 1 gm/ (Sodium Chloride) 50 mls @ 100 mls/hr IV Q24H [facility] Last Infusion: 12/05/21 02:28 Dose: 0 mls/hr Documented by: SCOTTIE Ondansetron HCl (Ondansetron Hcl 4 Mg/2 Ml Vial) 4 mg IVPUSH Q8H PRN PRN Reason: Nausea and Vomiting Oxycodone HCl (Oxycodone Hcl Immed Release 5 Mg Tablet) 5 mg PO Q6H PRN PRN Reason: Pain, Severe (Pain Scale 7-10) Pharmacy Consult (Consult Rx Perform Med Rec) 1 each MISCELLANE ONCE PRN PRN Reason: Consult order Sodium Chloride (0.9 % Sodium Chloride Flush 3 Ml Syringe) 3 ml IVFLUSH QSHIFT [facility] Last Admin: 12/05/21 08:11 Dose: Not Given Documented by: DIVYA Non-Admin Reason: IV Running Zolpidem Tartrate (Zolpidem Tartrate 5 Mg Tablet) 10 mg PO BEDTIME PRN PRN Reason: insomnia Last Admin: 12/04/21 22:13 Dose: 10 mg Documented by: SCOTTIE Labs CBC & Chem 7: 12/05/21 05:46 12/05/21 05:46 Labs: Laboratory Results - last 24 hr 12/03/21 12/04/21 12/05/21 20:38 06:10 05:46 MCV 84.6 MCH 25.3 L MCHC 29.8 L RDW 16.0 Plt Count 140 L MPV 11.8 Absolute Nucleated RBC 0.000 Nucleated RBC % (auto) 0.0 Anion Gap Creatinine 2.27 H 1.85 H Estim Creat Clear Calc Estimated GFR Random Glucose Calcium Iron TIBC % Saturation Unsat Iron Binding Ferritin 12/05/21 05:46 MCV MCH MCHC RDW Plt Count MPV Absolute Nucleated RBC Nucleated RBC % (auto) Anion Gap 8 L Creatinine 1.40 Estim Creat Clear Calc 51.6 Estimated GFR 50 Random Glucose 89 Calcium 8.0 L Iron 14 L TIBC 238 % Saturation 6 L Unsat Iron Binding 224 Ferritin 44 Microbiology Microbiology Results: Microbiology 12/04/21 06:09 Blood Culture - Preliminary Blood - Venous No growth after 24 hours. 12/04/21 06:10 Blood Culture - Preliminary Blood - Venous No growth after 24 hours. 12/03/21 22:17 Blood Culture - Preliminary Blood - Venous No growth after 24 hours. 12/03/21 22:18 Blood Culture - Preliminary Blood - Venous No growth after 24 hours. Assessment and Plan (1) Syncope: Status: Acute (2) ZINA (acute kidney injury): Status: Acute (3) UTI (urinary tract infection): Status: Acute Plan 71-year-old male with past medical history as mentioned above presents to the hospital after a syncopal episode # ZINA secondary to UTI as well as dehydration improving Hold IV fluids and antibiotics follow BMP # acute on recurrent UTIs patient with history of urostomy bag Continue IV antibiotics Id recommended to continue ceftriaxone and discharged on 10 days of Ceftin # syncope Could be secondary to his dehydration, postural hypotension Check postural vital # constipation CT scan of the abdomen negative for any massive constipation use Metamucil, Colace To use suppository DVT prophylaxis: Heparin subQ The patient will need overnight hospital stay pending final urine culture and improvement kidney function to prevent possible decomposition into sepsis. Quality Stroke Does the patient have a stroke diagnosis?: No VTE Prior VTE?: No VTE Risk Level:: Medical - moderate - high VTE Device Contraindication: Treatment Not Indicated VTE Drug Contraindication: N/A - Med Ordered
--- NOTE | 2021-12-05 10:06 | PM.PNNEP ---
Subjective Subjective Date of Service: 12/05/21 Interval history: Events noted Complaining of constipation Physical Exam Vital Signs: Vital Signs: Last Vital Signs Temp 97.8 F 12/05/21 07:41 Pulse 66 12/05/21 08:37 Resp 18 12/05/21 07:41 BP 135/68 12/05/21 08:37 Pulse Ox 98 12/05/21 08:37 Oxygen Flow Rate 4 12/03/21 20:15 BMI result Body Mass Index 28.0 Const: Orientation/consciousness: patient oriented x3 Resp: Effort & Inspection: normal respiratory effort Auscultation: clear to auscultation bilaterally Cardio: Rate: regular rate Rhythm: regular rhythm GI: Palpation (GI): Soft to palpation and nontender Auscultation: normal bowel sounds Skin: General skin exam: no rashes or lesions noted Neuro: General: patient oriented x3 Cognition (Neuro): normal cognition Extrem: General: Yes no pedal edema Objective Data Labs CBC & Chem 7: 12/05/21 05:46 12/05/21 05:46 Labs: Laboratory Results - last 24 hr 12/05/21 12/05/21 05:46 05:46 WBC 2.7 L RBC 2.93 L Hgb 7.4 L Hct 24.8 L MCV 84.6 MCH 25.3 L MCHC 29.8 L RDW 16.0 Plt Count 140 L MPV 11.8 Absolute Nucleated RBC 0.000 Nucleated RBC % (auto) 0.0 Sodium 143 Potassium 4.3 Chloride 120 H Carbon Dioxide 19 L Anion Gap 8 L BUN 19 H Creatinine 1.40 Estim Creat Clear Calc 51.6 Estimated GFR 50 Random Glucose 89 Calcium 8.0 L Iron 14 L TIBC 238 % Saturation 6 L Unsat Iron Binding 224 Ferritin 44 Microbiology Microbiology Results: Microbiology 12/04/21 06:09 Blood - Venous Blood Culture - Preliminary No growth after 24 hours. 12/04/21 06:10 Blood - Venous Blood Culture - Preliminary No growth after 24 hours. 12/03/21 22:17 Blood - Venous Blood Culture - Preliminary No growth after 24 hours. 12/03/21 22:18 Blood - Venous Blood Culture - Preliminary No growth after 24 hours. Procedures Date of Service Date of Service: 12/05/21 Assessment & Plan Assessment and plan (1) Syncope: Status: Acute (2) ZINA (acute kidney injury): Status: Acute (3) History of urinary diversion procedure: Status: Acute Plan 71-year-old male with ZINA superimposed on CKD # ZINA - Due to hypoperfusion/dehydration - Cr improving with hydration Keep I > O # Recurrent UTIs - patient with history of urostomy bag -On antibiotics Met Acidosis Add PO Sod bicarbonte 650 mg PO TID x 3 days Anemia On Epogen Time Spent With Patient Time: Total time spent is greater than 50% in coordination of care (as documented) at patient's floor/unit and/or counseling patient: Progress Note: Quality Stroke Does the patient have a stroke diagnosis?: No
[2021-12-05] MEDS: Albuterol Sulfate 90 MCG 8 GM INHALER 2 PUFF INHALE (12:02)
--- NOTE | 2021-12-05 12:24 | PC.NURSE ---
Pt was sitting in bathroom demanding an enema,I explained to him that he could not have an enema because it was not ordered. I told him that he could have Colace and I would tiger text the doctor. I tiger texted doctor, a short time later came to see patient. Ordered a dulcolax suppository which this adjusto writer operator administered. Explained to patient give the suppository a little while to work. Pt was in bathroom almost immediately, yelling in bathroom. He had no results. In addition ordered colace scheduled BID and Psyllium seed 3.4 gm daily. Pt continued to be loud. Pt is also a high risk patient was told numerous times to not get up by himself, to ring the sheikh. This adjusto writer operator told patient he could not have his door shut due to being a high risk and which point he closed his door.
[2021-12-05] MEDS: oxyCODONE HCl Immed Release 5 MG TABLET PO (16:13)
[2021-12-05] MEDS: Acetaminophen 325 MG TABLET 650 MG PO (16:13)
[2021-12-05] MEDS: Zolpidem Tartrate 5 MG TABLET 10 MG PO (21:09)
[2021-12-05 23:25] VITALS: BP 158/77; PULSE 69; RESP 17; TEMP 36.3; O2SAT 97
[2021-12-06] VITALS (11 sets, daily range): BP systolic 150–188; BP diastolic 75–91; PULSE 53–78; RESP 15–20; TEMP 36.1–36.8; O2SAT 95–100
[2021-12-06] MEDS: cefTRIAXone sodium 1 GM in 0.9 % Sodium Chloride 50 ML IV (01:24)
[2021-12-06] MEDS: Heparin Sodium,Porcine 5,000 UNIT/ML VIAL 5000 UNIT SUBCUT ×2 (06:48→17:34)
[2021-12-06 07:03] LABS: Anion Gap 12 (12-20); Blood Urea Nitrogen 18 mg/dL (9-16); Calcium 8.3 mg/dL (8.4-10.2); Carbon Dioxide 19 mmol/L (22-29); Chloride 116 mmol/L (96-108); Creatinine Clr Calc Pharmacy 52.8; Estimated Glomerular Filt Rate 51; Glucose Random 94 mg/dL (60-115); Potassium 4.2 mmol/L (3.3-5.1); Sodium 143 mmol/L (135-145)
[2021-12-06] MEDS: atenoloL 25 MG TABLET PO (09:04)
[2021-12-06] MEDS: Docusate Sodium 100 MG CAPSULE PO ×2 (09:04→19:39)
[2021-12-06] MEDS: Ferrous Sulfate 324 MG TABLET.DR PO (09:04)
[2021-12-06] MEDS: 0.9 % Sodium Chloride Flush 3 ML SYRINGE IVFLUSH ×3 (09:05→19:43)
--- NOTE | 2021-12-06 10:08 | PM.PNNEP ---
Subjective Subjective Date of Service: 12/06/21 Interval history: Kidney function improving Complaining of constipation no overnight events Physical Exam Vital Signs: Vital Signs: Last Vital Signs Temp 97.3 F 12/06/21 08:00 Pulse 78 12/06/21 09:14 Resp 20 12/06/21 08:00 BP 172/87 H 12/06/21 08:00 Pulse Ox 98 12/06/21 08:00 O2 Del Method 12/06/21 08:00 O2 Flow Rate 2 12/04/21 12:28 Oxygen Flow Rate 4 12/03/21 20:15 BMI result Body Mass Index 28.0 Const: Orientation/consciousness: patient oriented x3 Resp: Effort & Inspection: normal respiratory effort Auscultation: clear to auscultation bilaterally Cardio: Rate: regular rate Rhythm: regular rhythm GI: Palpation (GI): Soft to palpation and nontender Auscultation: normal bowel sounds Skin: General skin exam: no rashes or lesions noted Neuro: General: patient oriented x3 Cognition (Neuro): normal cognition Extrem: General: Yes no pedal edema Objective Data Labs CBC & Chem 7: 12/05/21 05:46 12/06/21 03:39 Labs: Laboratory Results - last 24 hr 12/06/21 03:39 Sodium 143 Potassium 4.2 Chloride 116 H Carbon Dioxide 19 L Anion Gap 12 BUN 18 H Creatinine 1.37 Estim Creat Clear Calc 52.8 Estimated GFR 51 Random Glucose 94 Calcium 8.3 L Microbiology Microbiology Results: Microbiology 12/04/21 06:09 Blood - Venous Blood Culture - Preliminary No growth after 48 hours. 12/04/21 06:10 Blood - Venous Blood Culture - Preliminary No growth after 48 hours. 12/03/21 22:17 Blood - Venous Blood Culture - Preliminary No growth after 48 hours. 12/03/21 22:18 Blood - Venous Blood Culture - Preliminary No growth after 48 hours. 12/04/21 00:00 Urine clean catch - Urine staples top Urine Culture - Final Procedures Date of Service Date of Service: 12/06/21 Assessment & Plan Assessment and plan (1) Syncope: Status: Acute (2) ZINA (acute kidney injury): Status: Acute (3) History of urinary diversion procedure: Status: Acute Plan 71-year-old male with ZINA superimposed on CKD # ZINA - Due to hypoperfusion/dehydration - Cr improving with hydration Keep I > O # Recurrent UTIs - patient with history of urostomy bag -On antibiotics Met Acidosis Sod bicarbonte 650 mg PO TID x 3 days Anemia On Epogen Time Spent With Patient Time: Total time spent is greater than 50% in coordination of care (as documented) at patient's floor/unit and/or counseling patient: Progress Note: Quality Stroke Does the patient have a stroke diagnosis?: No
--- NOTE | 2021-12-06 13:30 | P.PNIM_ITS ---
Subjective Subjective Date of Service: 12/06/21 Interval History: Kidney function improving Had bowel movement yesterday and this morning no overnight events Review of Systems No fever, chills or weakness No chest pain, palpitation No shortness of breath or coughing No abdominal pain, nausea or vomiting but having constipation No urinary symptoms No any rash or wounds Physical Exam Vital Signs: Vital Signs: Last Vital Signs Temp 98.3 F 12/06/21 11:55 Pulse 55 12/06/21 11:55 Resp 20 12/06/21 11:55 BP 171/83 H 12/06/21 11:55 Pulse Ox 96 12/06/21 11:55 O2 Del Method 12/06/21 11:55 O2 Flow Rate 2 12/04/21 12:28 Oxygen Flow Rate 4 12/03/21 20:15 BMI result Body Mass Index 28.0 Const: Other: Constitutional : Alert, oriented, not in distress Neck : Normal inspection, Supple Cardiovascular : RRR, no JVP, no lower extremity edema Respiratory : fair bilateral air entry, no crackles, wheezes or rhonchi Gastrointestinal: soft, lax, Normal bowel sounds, Non tender Skin : Warm, Dry Neurological : Alert & oriented x3, No focal deficit Objective Data Active Medications Acetaminophen (Acetaminophen 325 Mg Tablet) 650 mg PO Q6H PRN PRN Reason: Pain, Mild (Pain Scale 1-3) Last Admin: 12/05/21 16:13 Dose: 650 mg Documented By: REY Albuterol Sulfate (Albuterol Sulfate 90 Mcg 8 Gm Inhaler) 2 puff INHALE Q4H PRN PRN Reason: Wheezing Last Admin: 12/05/21 12:02 Dose: 2 puff Documented By: REY Atenolol (Atenolol 25 Mg Tablet) 25 mg PO DAILY [facility]; Protocol Last Admin: 12/06/21 09:04 Dose: 25 mg Documented By: ZONIA Docusate Sodium (Docusate Sodium 100 Mg Capsule) 100 mg PO BID [facility] Last Admin: 12/06/21 09:04 Dose: 100 mg Documented By: ZONIA Ferrous Sulfate (Ferrous Sulfate 324 Mg Tablet.) 324 mg PO DAILY [facility] Last Admin: 12/06/21 09:04 Dose: 324 mg Documented By: ZONIA Heparin Sodium (Porcine) (Heparin Sodium,Porcine 5,000 Unit/Ml Vial) 5,000 unit SUBCUT Q12H [facility] Last Admin: 12/06/21 06:48 Dose: 5,000 unit Documented By: QUANG Ceftriaxone Sodium 1 gm/ (Sodium Chloride) 50 mls @ 100 mls/hr IV Q24H [facility] Last Infusion: 12/06/21 02:08 Dose: 0 mls/hr Documented By: QUANG Ondansetron HCl (Ondansetron Hcl 4 Mg/2 Ml Vial) 4 mg IVPUSH Q8H PRN PRN Reason: Nausea and Vomiting Oxycodone HCl (Oxycodone Hcl Immed Release 5 Mg Tablet) 5 mg PO Q6H PRN PRN Reason: Pain, Severe (Pain Scale 7-10) Last Admin: 12/05/21 16:13 Dose: 5 mg Documented By: REY Pharmacy Consult (Consult Rx Perform Med Rec) 1 each MISCELLANE ONCE PRN PRN Reason: Consult order Psyllium Hydrophilic Mucilloid (Psyllium Seed 3.4 Gm Powd.Pack) 3.4 gm PO DAILY [facility] Last Admin: 12/06/21 09:03 Dose: 3.4 gm Documented By: ZONIA Sodium Chloride (0.9 % Sodium Chloride Flush 3 Ml Syringe) 3 ml IVFLUSH QSHIFT [facility] Last Admin: 12/06/21 09:05 Dose: 3 ml Documented By: ZONIA Zolpidem Tartrate (Zolpidem Tartrate 5 Mg Tablet) 10 mg PO BEDTIME PRN PRN Reason: insomnia Last Admin: 12/05/21 21:09 Dose: 10 mg Documented By: REY Labs CBC & Chem 7: 12/05/21 05:46 12/06/21 03:39 Labs: Laboratory Results - last 24 hr 12/06/21 03:39 Anion Gap 12 Estim Creat Clear Calc 52.8 Estimated GFR 51 Random Glucose 94 Calcium 8.3 L Microbiology Microbiology Results: Microbiology 12/04/21 06:09 Blood Culture - Preliminary Blood - Venous No growth after 48 hours. 12/04/21 06:10 Blood Culture - Preliminary Blood - Venous No growth after 48 hours. 12/03/21 22:17 Blood Culture - Preliminary Blood - Venous No growth after 48 hours. 12/03/21 22:18 Blood Culture - Preliminary Blood - Venous No growth after 48 hours. 12/04/21 00:00 Urine Culture - Final Urine clean catch - Urine staples top Assessment and Plan (1) ZINA (acute kidney injury): Status: Acute (2) UTI (urinary tract infection): Status: Acute Plan 71-year-old male with past medical history as mentioned above presents to the hospital after a syncopal episode # ZINA secondary to UTI as well as dehydration improving Hold IV fluids and antibiotics follow BMP # acute on recurrent UTIs patient with history of urostomy bag Urine culture not growing any specific bacteria Continue IV antibiotics day 3, DC and start p.o. Id recommended to continue ceftriaxone and discharged on 10 days of Ceftin # syncope Could be secondary to his dehydration, postural hypotension Check postural vital # constipation Resolved after enema CT scan of the abdomen negative for any massive constipation use Metamucil, Colace DVT prophylaxis: Heparin subQ The patient will need overnight hospital stay pending safe discharge plan as he has no one home, has no she is to his apartment as his family is away and tomorrow. Quality Stroke Does the patient have a stroke diagnosis?: No VTE Prior VTE?: No VTE Risk Level:: Medical - moderate - high VTE Device Contraindication: Treatment Not Indicated VTE Drug Contraindication: N/A - Med Ordered
--- NOTE | 2021-12-06 14:37 | MHC.CM.PN ---
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
[2021-12-06] MEDS: Zolpidem Tartrate 5 MG TABLET 10 MG PO (20:58)
[2021-12-07] VITALS (10 sets, daily range): BP systolic 161–200; BP diastolic 72–94; PULSE 51–68; RESP 16–18; TEMP 36.3–36.9; O2SAT 95–97
--- NOTE | 2021-12-07 00:16 | PC.NURSE ---
Addendum entered by Romana Lazo RN 12/07/21 05:55: BP rechecked =182/80 HR= 57 , Dr. Perez was updated. Addendum entered by Romana Lazo RN 12/07/21 04:05: BP at 3AM was 200/94 by machine , 198/86 manually, HR=54, Dr. Perez was made aware and said to give Atenolol 25 mg po early, pt complied and med given. Original Note: Urostomy appliance was leaking at shift change, reinforced but not holding, whole urostomy appliance was changed. Pt had BV=539/91 Hr=54 around [place], rechecked by Manual =185/80, pt denies any pain nor any other complaints, Dr. Perez was made aware.
[2021-12-07] MEDS: atenoloL 25 MG TABLET PO ×2 (04:03→07:25)
[2021-12-07] MEDS: Heparin Sodium,Porcine 5,000 UNIT/ML VIAL 5000 UNIT SUBCUT (05:42)
[2021-12-07] MEDS: 0.9 % Sodium Chloride Flush 3 ML SYRINGE IVFLUSH (07:25)
[2021-12-07] MEDS: Ferrous Sulfate 324 MG TABLET.DR PO (07:25)
--- NOTE | 2021-12-07 10:14 | PM.PNNEP ---
Subjective Subjective Date of Service: 12/07/21 Interval history: Events noted Feels better Non oliguric Physical Exam Vital Signs: Vital Signs: Last Vital Signs Temp 97.5 F 12/07/21 07:47 Pulse 51 12/07/21 07:47 Resp 16 12/07/21 07:47 BP 164/84 H 12/07/21 07:47 Pulse Ox 97 12/07/21 07:47 O2 Del Method 12/07/21 07:47 O2 Flow Rate 2 12/04/21 12:28 Oxygen Flow Rate 4 12/03/21 20:15 BMI result Body Mass Index 28.0 Const: General: cooperative and no acute distress HEENT: Face and sinus: Yes normal facial exam Eyes: General: appearance normal, both eyes and all related structures Pupils: Equal, round and reactive pupils present Resp: Effort & Inspection: normal respiratory effort Auscultation: clear to auscultation bilaterally Cardio: Rate: regular rate Rhythm: regular rhythm GI: Palpation (GI): Soft to palpation and nontender Auscultation: normal bowel sounds Skin: General skin exam: no rashes or lesions noted Neuro: Cranial nerves: Yes Equal, round and reactive pupils present Cognition (Neuro): normal cognition Extrem: General: Yes normal to inspection and Yes no pedal edema Objective Data Labs CBC & Chem 7: 12/05/21 05:46 12/06/21 03:39 Microbiology Microbiology Results: Microbiology 12/04/21 06:09 Blood - Venous Blood Culture - Preliminary No growth after 48 hours. 12/04/21 06:10 Blood - Venous Blood Culture - Preliminary No growth after 48 hours. 12/03/21 22:17 Blood - Venous Blood Culture - Preliminary No growth after 48 hours. 12/03/21 22:18 Blood - Venous Blood Culture - Preliminary No growth after 48 hours. 12/04/21 00:00 Urine clean catch - Urine staples top Urine Culture - Final Procedures Date of Service Date of Service: 12/07/21 Assessment & Plan Assessment and plan (1) Syncope: Status: Acute (2) ZINA (acute kidney injury): Status: Acute (3) History of urinary diversion procedure: Status: Acute Plan ?71-year-old male with ZINA? superimposed on CKD # ZINA - ? Due to hypoperfusion/dehydration -? Cr improving with hydration Keep I > O # Recurrent UTIs -? patient with history of urostomy bag -On antibiotics Met Acidosis Change Sod bicarbonate 650 mg PO QD upon discharge Anemia Will arrange for Epogen as out patient Time Spent With Patient Time: Total time spent is greater than 50% in coordination of care (as documented) at patient's floor/unit and/or counseling patient: Progress Note: Quality Stroke Does the patient have a stroke diagnosis?: No
[2021-12-07] MEDS: amLODIPine Besylate 5 MG TABLET PO (11:43)
--- NOTE | 2021-12-07 11:44 | W.MHC.F2F ---
Service Date Service Date: 12/07/21 Encounter Date of encounter: 12/07/21 Reasons for Services Signs and symptoms assessed: pt requires jail for BP monitoring, urostomy management, and PT for unsteady gait/fall risk ; med reconciliation - narcotic dose, atenolol dose decreased Reason for jail: medication management and other (urostomy care) Reason for physical therapy: home safety and mobility and gait/transfer training Overseeing Care: Nelson Pineda Homebound: Leaving the home is medically contraindicated at this time without the asist of a device and/or another person due th the listed conditions above and below. Reason homebound: unsteady gait / fall risk Certification: Based on the above findings, I certify that this patient is confined to the home and needs intermittent jail care, physical therapy and/or speech therapy, or continues to need occupational therapy. The patient is under my care, and I have initiated the establishment of the plan of care. The patient will be followed by a physician who will periodically review the plan of care.
--- NOTE | 2021-12-07 11:57 | PM.DS ---
DS: Providers Provider Date of Service: 12/07/21 Date of admission: 12/04/21 05:34 Date of discharge: 12/07/21 Primary care physician: Nelson Pineda MD Consults: 12/04/21 06:59 Consult to Infectious Diseases Routine Consulting Provider: Jael Ward Reason for consultation: recurrent UTI Has provider been notified: No 12/04/21 10:21 Consult to Nephrology Routine Consulting Provider: Yuriy Gandara Reason for consultation: zina on ckd Has provider been notified: No Attending physician on discharge: Rolando Ma Discharging clinician: Swapna Medellin DS: Diagnosis Discharge Diagnosis (1) Syncope: Status: Acute (2) ZINA (acute kidney injury): Status: Acute (3) History of urinary diversion procedure: Status: Acute DS: Summary Hospital Course Hospital Course: From H&P on day of admission this is a 71-year-old male with past medical history of hypertension, hyperlipidemia, CKD, history of? urothelial cancer status post left nephroureterectomy with open bladder excision in November 2020, recurrent bladder cancer with muscle invasion status post multiple TURP, status post urostomy bag, presents the hospital after losing consciousness at home.? of note patient was discharged from the hospital on 11/21 after being found altered secondary to urinary tract infection.? He was sent to rehab facility, patient reports that he left the rehab facility feeling better but today he was outside his house, he was trying to get into the house, somehow lost consciousness.? Patient does not remember much history around the episode, report that he only remembered wanting to go inside the house.? He does not remember how he was feeling before or after.? patient denies any chest pain, no palpitations prior to syncopized. ? Patient otherwise denies having any chest pain, no shortness of breath, no headache or change in vision, no abdominal pain nausea or vomiting, no diarrhea constipation, no urinary symptoms, no change in urine in the urostomy bag.? No lower extremity edema.? On arrival to the ED vitals? were noted to be unremarkable ?labs are significant for WBC count of 5.3, hemoglobin of 8.0 with a baseline of around? 10, chloride of 114, creatinine of 2.27 with a baseline of 1.38, CPK of 896, UA positive for leukocyte Estrace, WBC, ?abdominal CT shows solitary remaining right kidney with some mild collecting system prominence but the moderate hydronephrosis that was present in the past has resolved. ? Imaging reviewed show no significant abnormal abnormality otherwise Syncope. thought to be related to to dehydration. BP was soft on admission. Treated with IV fluid and BP improved. can consider outpatient ECHO as patient does not want to stay for further testing. UTI. history of Urostomy. Urine culture not growing any specific bacteria. seen by ID, recommended to complete 10 days of ceftin ZINA on CKD3. Secondary to UTI and dehydration. Treated with IV fluid. Renal function improved and is back to baseline. Patient was seen by Nephrology during admission. He was also noted to have lobe bicarb level and was started on supplement mental bicarb on discharge. Repeat labs recommended for next week. Should follow-up with PCP. hypertension. BP was low on admission and atenolol and Norvasc were initially held. Atenolol was restarted at lower dose. Continue atenolol 25 mg daily. Due to bradycardia atenolol was not titrated up. Norvasc was resumed. Blood pressure is elevated and should be monitored closely by PCP/visiting nurses to determine need for additional agent. Anemia. chronic, Nephrology will arrange for Epogen as outpatient. There was no evidence of acute blood loss Pain. dose of narcotics was decreased from 20 mg b.i.d. p.r.n. to 5 mg q.6 hours as needed. He had adequate control of his pain while hospitalized. he is instructed to stop taking his 20 mg tablet and start taking 5 mg tablet as needed. He can follow-up with his PCP if this needs to be up titrated. Patient was evaluated by Physical therapy who recommended short-term rehab. Patient declined short-term rehab and elected to instead return home with group home and physical therapy. He was eager to return home and did not want to remain in the hospital for additional testing Time Spent with Patient Time attestation: Total time spent providing and/or coordinating discharge services: Discharge coordination time: Greater than 30 minutes Quality: Safe Use of Opioids Does Pt have an Active Cancer Diagnosis on the Problem List?: No Quality: Stroke Does the patient have a stroke diagnosis?: No Physical Exam Vital Signs: Vital Signs: Last Vital Signs Temp 98.1 F 12/07/21 11:28 Pulse 56 12/07/21 11:28 Resp 18 12/07/21 11:28 BP 196/83 H 12/07/21 10:53 Pulse Ox 95 12/07/21 11:28 O2 Del Method 12/07/21 11:28 O2 Flow Rate 2 12/04/21 12:28 Oxygen Flow Rate 4 12/03/21 20:15 BMI result Body Mass Index 28.0 DS: Data Data Completed and Pending Completed studies during hospitalization [Text1]: Procedures Dilation of Right Ureter with Intraluminal Device, Via Natural or Artificial Opening Endoscopic (05/19/21) Extirpation of Matter from Right Ureter, Via Natural or Artificial Opening Endoscopic (05/19/21) Labs on day of discharge: Preliminary micro results at discharge 12/04/21 06:09 Blood Culture - Preliminary Blood - Venous No growth after 48 hours. 12/04/21 06:10 Blood Culture - Preliminary Blood - Venous No growth after 48 hours. 12/03/21 22:17 Blood Culture - Preliminary Blood - Venous No growth after 48 hours. 12/03/21 22:18 Blood Culture - Preliminary Blood - Venous No growth after 48 hours. Discharge Plan Discharge Patient Disposition: Home Health Service Discharge Diagnosis: syncope ZINA UTI Referrals: [facility] [Outside] - 1 Day ([facility]) Nelson Pineda MD [Primary Care Provider] - 1 Week Yuriy Gandara MD [Physician] - 1 Week Discharge Medications: New cefuroxime axetil 500 mg Tablet 500 mg PO Q12H 7 Days Qty: 14 0RF sodium bicarbonate 650 mg tablet 650 mg PO DAILY 15 Days Qty: 15 0RF docusate sodium [Colace] 100 mg capsule 100 mg PO BID 30 Days Qty: 60 0RF oxycodone 5 mg tablet 5 mg PO Q6H PRN (Reason: severe pain (scale score 7-10)) Qty: 10 0RF Rx Instructions: Partial Fill upon patient request. Continued amlodipine 5 mg tablet 5 mg PO DAILY Qty: 90 0RF zolpidem 10 mg tablet 10 mg PO BEDTIME PRN (Reason: insomnia) 30 Days Qty: 30 1RF albuterol sulfate [Ventolin HFA] 90 mcg/actuation HFA aerosol inhaler 2 puff inhalation Q4H PRN (Reason: Wheezing) Changed atenolol 100 mg tablet 25 mg PO DAILY Qty: 30 3RF Discontinued oxycodone 20 mg tablet 1 tab PO BID-TID PRN (Reason: severe pain) Discharge Orders: Discharge Order (Routine); Ordered 12/07/21 Ordered By: Swapna Medellin Diet: advance to usual diet Activity on Discharge: As tolerated Stand Alone Forms: Patient Portal Discharge page Other Ambulatory Orders: Basic Metabolic Panel (Routine) Timeframe: 20211211 Facility: [facility] - Location: Laboratory Ordered By: Swapna Medellin Care Plan Goals: see below Health Concerns: possible syncope ZINA high blood pressure Plan of Treatment: take antibiotics as prescribed until completion have labs repeated on Saturday Take sodium bicarbonate until repeat labs are obtained on Saturday - call PCP or nephrology office call to schedule follow-up appointment with Nephrology call to schedule follow-up appointment with PCP dose of atenolol has been decreased to 25 mg daily stop taking oxycodone 20 mg tablets, dose has been decreased to 5mg every 6 hours as needed for severe pain - call PCP for follow up You will be discharged with visiting nurses and home physical therapy Assessment: see discharge summary Discharge Date/Time: 12/07/21 17:33
[2021-12-07] MEDS: Sodium Bicarbonate 650 MG TABLET PO (14:13)
== END 2021-12-07 17:33 | disposition home health service (06) | DRG 683 ==
LOC: HO.ED 12-04 01:44 → HO.EDOVER 12-04 05:46 → HO.S3 12-04 17:12
PROVIDERS: Hospitalist; Student in an Organized Health Care Education/Training Program; Admitting Provider Internal Medicine; Emergency Provider Emergency Medicine Emergency Medical Services; PCP Internal Medicine; Visit Provider Physician Assistant Medical
DX: N17.9 Acute kidney failure, unspecified (principal); N39.0 Urinary tract infection, site not specified; E87.2 Acidosis; I12.9 Hypertensive chronic kidney disease with stage 1 through stage 4 chronic kidney disease, or unspecified chronic kidney disease; N18.30 Chronic kidney disease, stage 3 unspecified; D63.1 Anemia in chronic kidney disease; E86.0 Dehydration; F31.9 Bipolar disorder, unspecified; Z85.51 Personal history of malignant neoplasm of bladder; E78.5 Hyperlipidemia, unspecified; Z20.822 Contact with and (suspected) exposure to COVID-19; Z93.6 Other artificial openings of urinary tract status; Z87.440 Personal history of urinary (tract) infections; Z90.5 Acquired absence of kidney; Z88.1 Allergy status to other antibiotic agents; Z88.6 Allergy status to analgesic agent; Z88.8 Allergy status to other drugs, medicaments and biological substances; Z79.899 Other long term (current) drug therapy
CPT/HCPCS: 36415; 70450; 71045; 72125; 74176; 80048; 80053; 81001; 82550; 82728; 82947; 83540; 83605; 85025; 85027; 87040; 87086; 87502; 87635; 93005; 96361; 96365; 97116; 97162; 99285; J0696; J0885

== ENCOUNTER 2022-06-15 06:58 | Outpatient (REF) | payer MEDICARE, MEDICAID, SELFPAY ==
--- NOTE | ~2022-06-15 | XR_ITS ---
EXAMINATION: XR SKULL XR CERVICAL SPINE CLINICAL INFORMATION: Headache and cervicalgia. COMPARISON: CT head of 12/03/[address] cervical spine of 12/03/2021. TECHNIQUE: 6 images of the skull and 4 images of the cervical spine. FINDINGS: The calvarium appears intact. No destructive bony lesion is identified. On one Jenifer image, there is artifact seen overlying the skull. This is not present on repeat study. No significant paranasal sinus disease is identified. The mastoid air cells appear to be well aerated. Pineal calcification not appreciated. Three-view cervical spine study does not demonstrate any evidence of abnormal prevertebral soft tissue swelling. There is disc space narrowing seen C3 through C7 with marginal spurring seen C2 through C7. No acute fracture is appreciated. XR/XR cervical spine 3V IMPRESSION: No significant skull abnormality appreciated. Cervical spondylosis without acute fracture identified.
--- NOTE | ~2022-06-15 | XR_ITS ---
EXAMINATION: XR SKULL XR CERVICAL SPINE CLINICAL INFORMATION: Headache and cervicalgia. COMPARISON: CT head of 12/03/[address] cervical spine of 12/03/2021. TECHNIQUE: 6 images of the skull and 4 images of the cervical spine. FINDINGS: The calvarium appears intact. No destructive bony lesion is identified. On one Jenifer image, there is artifact seen overlying the skull. This is not present on repeat study. No significant paranasal sinus disease is identified. The mastoid air cells appear to be well aerated. Pineal calcification not appreciated. Three-view cervical spine study does not demonstrate any evidence of abnormal prevertebral soft tissue swelling. There is disc space narrowing seen C3 through C7 with marginal spurring seen C2 through C7. No acute fracture is appreciated. XR/XR skull min 4V IMPRESSION: No significant skull abnormality appreciated. Cervical spondylosis without acute fracture identified.
[2022-06-15 07:06] LABS: MANUAL DIFF FLAG NO
[2022-06-15 07:25] LABS: Basophils Percent Auto 0.5 % (0-2); Eosinophils Absolute Auto 0.3 X10*3/uL (0.0-0.4); Eosinophils Percent Auto 7.3 % (0-4); Hematocrit 34.2 % (42.0-52.0); Hemoglobin 10.4 g/dl (14.0-18.0); Imm Gran Abs Auto 0.01 X10*3/uL (0.00-0.03); Imm Gran Pct Auto 0.2 % (0.0-0.4); Lymphocytes Percent Auto 22.6 % (20-40); Mean Corpuscular HGB Conc 30.4 g/dl (31.0-36.0); Mean Corpuscular Hemoglobin 26.9 pg (27.0-33.0); Mean Corpuscular Volume 88.4 fL (80.0-98.0); Mean Platelet Volume 12.9 fL (9.4-12.4); Monocytes Absolute Auto 0.3 X10*3/uL (0.1-1.2); Monocytes Percent Auto 7.5 % (2-11); Neutrophils Absolute Auto 2.6 x10*3/uL (2.0-8.3); Neutrophils Percent Auto 61.9 % (45-73); Platelet Count 179 X10*3/uL (160-400); Red Blood Count 3.87 X10*6/uL (4.60-5.80); Red Cell Distribution Width 15.4 % (11.0-16.0); White Blood Count 4.3 X10*3/uL (4.8-10.8)
[2022-06-15 07:52] LABS: Estimated Average Glucose 94 mg/dL; Hemoglobin A1c % 4.9 %
[2022-06-15 08:13] LABS: Alanine Aminotransferase < 6 U/L (0-40); Alkaline Phosphatase 106 U/L (39-117); Anion Gap 13 (12-20); Aspartate Amino Transferase 8 U/L (5-37); Bilirubin Total 0.6 mg/dL (0.0-1.0); Blood Urea Nitrogen 21 mg/dL (9-16); Carbon Dioxide 24 mmol/L (22-29); Chloride 111 mmol/L (96-108); Cholesterol 151 mg/dL; Estimated Glomerular Filt Rate 43; Glucose Fasting 106 mg/dL (60-99); HDL Cholesterol 56 mg/dL; Iron 25 mcg/dL (45-160); LDL Cholesterol Calculated 83 mg/dl; Percent Iron Saturation 8 % (15-50); Potassium 4.6 mmol/L (3.3-5.1); Sodium 143 mmol/L (135-145); Total Iron Binding Capacity 297 mcg/dL (228-428); Total Protein 6.4 g/dL (6.5-8.0); Triglycerides 64 mg/dL; Unsaturated Iron Binding 272 ug/dL; Vitamin D 25-OH Total 14.8 ng/mL (>30)
[2022-06-15 08:27] LABS: Folate 13.5 ng/mL (> or = 4.0); Vitamin B12 280 pg/mL (200-900)
[2022-06-18 13:59] LABS: Erythropoietin (EPO) 13.3 mIU/mL (2.6-18.5)
== END 2022-06-15 06:59 | disposition home or self-care (01) ==
LOC: HO.XRAY 06:58
PROVIDERS: PCP Internal Medicine; Visit Provider Internal Medicine
DX: E11.9 Type 2 diabetes mellitus without complications (principal); I10 Essential (primary) hypertension; E53.8 Deficiency of other specified B group vitamins; E55.9 Vitamin D deficiency, unspecified; D50.9 Iron deficiency anemia, unspecified; R51.9 Headache, unspecified; M54.2 Cervicalgia; E78.00 Pure hypercholesterolemia, unspecified
CPT/HCPCS: 36415; 70260; 72040; 80053; 80061; 82306; 82607; 82668; 82746; 83036; 83540; 85025

== ENCOUNTER 2023-02-26 12:42 | Emergency (ER) | payer MEDICARE, MEDICAID, SELFPAY ==
--- NOTE | ~2023-02-26 | CT_ITS ---
EXAMINATION: CT HEAD WITHOUT CONTRAST CLINICAL INFORMATION: Altered mental status COMPARISON: CT head 12/03/2021 TECHNIQUE: Contiguous axial imaging was performed from the skull base to vertex without intravenous administration of contrast. This CT examination was performed using dose optimization techniques as appropriate, variously including the following: *Automated exposure control *Adjustment of mA and/or kV according to patient size (this includes techniques or standardized protocols for targeted exams where dose is matched to indication/reason for exam; i.e. extremities or head) *Use of iterative reconstruction technique DLP: 648 mGy-cm FINDINGS: There is no evidence of acute intracranial hemorrhage or territorial infarction. No abnormal mass effect or midline shift is seen. Escalante to white matter differentiation is grossly preserved. No abnormal extra-axial fluid collections are identified. Commensurate prominence of the ventricles and sulci is compatible with generalized parenchymal volume loss. There is periventricular and subcortical white matter hypoattenuation, most likely representing microangiopathic disease. 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 No acute calvarial fracture.. Paranasal sinuses and mastoid air cells are well-aerated. CT/CT head/brain wo IV con IMPRESSION: No CT evidence of acute intracranial hemorrhage or edematous territorial infarction. Stable chronic changes as detailed above.
--- NOTE | ~2023-02-26 | XR_ITS ---
EXAMINATION: XR CERVICAL SPINE CLINICAL INFORMATION: Found on ground neck pain COMPARISON: Cervical spine radiograph from 06/15/2022 TECHNIQUE: 4 views of the cervical spine FINDINGS: No acute visible fracture or dislocation. Straightening of normal cervical curvature which may be secondary to patient positioning versus muscle spasm. Moderate multilevel degenerative changes with disc space narrowing, endplate sclerosis, osteophyte from it, and facet arthropathy. Visualized dens is intact. Lateral masses are symmetric. Vertebral body heights and disc spaces are maintained. Prevertebral soft tissues are unremarkable. Posterior elements are intact. Paraspinal soft tissues are unremarkable. Visualized portions of the upper chest are unremarkable. XR/XR cervical spine 3V IMPRESSION: 1. No acute visible fracture or dislocation. 2. Straightening of normal cervical curvature which may be secondary to patient positioning versus muscle spasm. 3. Moderate multilevel degenerative changes.
[2023-02-26 12:57] VITALS: BP 142/90; BP 150/90; PULSE 75; RESP 18; TEMP 36.9; O2SAT 97; BMI 28.1
--- NOTE | 2023-02-26 13:43 | ED_ITS ---
HPI - General Adult General Chief complaint: General Medical Stated complaint: UNWIT FALL,PT STS PAIN ?'S SHARK BITE,?ALTERED Time Seen by Provider: 02/26/23 13:07 Source: EMS Mode of arrival: EMS Limitations: altered mental status History of Present Illness HPI narrative: found on the ground at a construction site. According to his son patient has this when he has a UTI Onset (ago): hour(s) Related Data Home Medications Medication Instructions Recorded Confirmed oxycodone 20 mg tablet 20 mg PO TID PRN SEVERE PAIN 02/26/23 02/26/23 Previous Rx's Medication Instructions Recorded amlodipine 5 mg tablet 5 mg PO DAILY #90 tabs 01/25/23 sertraline 50 mg tablet 50 mg PO DAILY 30 days #30 tabs 01/25/23 trazodone 100 mg tablet 100 mg PO BEDTIME PRN sleep #30 02/12/23 tabs albuterol sulfate 90 mcg/actuation 2 puff inhalation Q4H PRN for 02/13/23 aerosol inhaler (Ventolin HFA) wheezing #18 ea zolpidem 10 mg tablet 10 mg PO BEDTIME PRN insomnia 30 02/13/23 days #30 tabs Allergies Allergy/AdvReac Type Severity Reaction Status Date / Time piperacillin [From ZOSYN] Allergy Intermediate REDNESS/WARMTH Verified 09/28/22 17:34 TO IV SITE. tazobactam [From ZOSYN] Allergy Intermediate REDNESS/WARMTH Verified 09/28/22 17:34 TO IV SITE. 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 Chronic kidney disease (CKD), stage III (moderate) CKD (chronic kidney disease), stage III Dermatitis Hematuria Hematuria HLD (hyperlipidemia) HTN (hypertension) Hydronephrosis Hyperkalemia Hypertension Hypertension, uncontrolled Insomnia Lumbar degenerative disc disease Metabolic encephalopathy Obesity (BMI 30-39.9) Overweight (BMI 25.0-29.9) Presence of urostomy Pruritic erythematous rash 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 Social History Social History Household Members: None Housing: Apartment Do you presently have visiting nurse or other home services: No Alcohol intake: current Alcohol intake frequency: does not drink Patient Tobacco Use Status: Never used Tobacco Smoked in Last 30 Days: No e-Cigarette/Vaping Use: Never Used Second Hand Smoke Exposure: No Use of substances other than those prescribed or required for medical reasons: No Advance Directives: Yes Advance Directives on File: Yes Advance Directives Date on File: 11/17/21 service: No Current occupational status: retired and disabled Physical Exam ED Vital Signs: Vital Signs - 24 hr 02/26/23 12:57 02/26/23 17:29 02/26/23 19:40 Temperature 98.4 F 97.8 F 97.5 F Pulse Rate 75 61 62 Respiratory Rate 18 18 18 Blood Pressure 150/90 H 190/88 H 202/79 H Pulse Oximetry 97 96 97 Oxygen Delivery Method Room Air Room Air Room Air 02/26/23 20:43 02/26/23 23:21 02/27/23 05:36 Temperature 97.8 F 97.7 F Pulse Rate 67 80 69 Respiratory Rate 16 16 Blood Pressure 205/88 H 161/83 H 177/74 H Pulse Oximetry 94 95 Oxygen Delivery Method Room Air Room Air 02/27/23 07:44 Temperature Pulse Rate 69 Respiratory Rate Blood Pressure 177/74 H Pulse Oximetry 95 Oxygen Delivery Method BMI result Body Mass Index 28.1 Const Other: Unkept male, confused thin Orientation/consciousness: oriented to person Limitations: altered mental status HENMT Head: Yes normal to inspection Ears: external ears normal General nose exam: Normal external nose present Mouth: Normal oral and palatal mucosa present and oropharynx normal Throat: Yes posterior oropharynx normal Eyes General: appearance normal, both eyes and all related structures Neck Neck: Yes normal visual inspection Chest Chest palpation & inspection: normal inspection of the chest Resp Auscultation: clear to auscultation bilaterally Cardio Jugular venous distension: no JVD Rate: regular rate Rhythm: regular rhythm Heart sounds: S1 normal heart sound present and S2 normal heart sound present GI Other: right ileostomy draining urine Inspection: Yes normal to inspection Palpation (GI): Soft to palpation, nontender and No hepatosplenomegaly present Auscultation: normal bowel sounds General: Yes no CVA tenderness Back/Spine/Pelvis Back: no CVA tenderness Skin General skin exam: no rashes or lesions noted Neuro General: oriented to person Cranial nerves: Yes CN's II-XII intact bilaterally Motor exam (neuro): 5/5 motor strength present throughout Extrem General: Yes normal to inspection Psych Appearance: grossly normal Course Reevaluation(s) Reevaluation #1: URIne and renal function are normal, will scan his head as a source of his confusion has not been found Time: 16:47 Reevaluation #2: patient with confusion and weakness, severe atrophy no acute illness will get case management and physical therapy Time: 19:06 Reevaluation #3: physician observation: started at 7pm reason to see if his mental status improves or will need placement Time: 19:07 Additional Reevaluation(s): Patient to be discharged back home with home therapy hollowed [employer] for [facility] and physical therapy. Son will pick patient up. All likely secondary to degenerative disc disease. Medications Administered Generic Name Dose Route Start Last Admin Trade Name Freq PRN Reason Stop Dose Admin Albuterol Sulfate 2 puff 02/26/23 21:51 02/26/23 22:07 Albuterol Sulfate 90 Mcg 8 Gm Inhaler INHALE 2 puff Q4H PRN Administration for wheezing Amlodipine Besylate 5 mg 02/27/23 09:00 02/27/23 08:10 Amlodipine Besylate 5 Mg Tablet PO 5 mg DAILY BALA Administration Protocol Oxycodone HCl 20 mg 02/26/23 21:51 02/27/23 04:38 Oxycodone Hcl Immed Release 5 Mg Tablet PO 20 mg TID PRN Administration SEVERE PAIN Sertraline HCl 50 mg 02/27/23 09:00 02/27/23 08:10 Sertraline Hcl 50 Mg Tablet PO 50 mg DAILY BALA Administration Trazodone HCl 100 mg 02/26/23 21:51 02/26/23 22:07 Trazodone Hcl 100 Mg Tablet PO 100 mg BEDTIME PRN Administration sleep Zolpidem Tartrate 5 mg 02/26/23 21:51 02/26/23 22:07 Zolpidem Tartrate 5 Mg Tablet PO 5 mg BEDTIME PRN Administration insomnia Discontinued Medications Generic Name Dose Route Start Last Admin Trade Name Freq PRN Reason Stop Dose Admin Oxycodone HCl 20 mg 02/26/23 20:10 02/26/23 20:26 Oxycodone Hcl Immed Release 5 Mg Tablet PO 02/26/23 20:11 20 mg ONCE ONE Administration Medical Decision Making Differential Diagnosis Differential Diagnoses: The differential diagnosis associated with the presentation includes (head trauma, UTI, renal failure, cerebral bleed were all considered) Admission/Observation Consideration of admission/observation: Escalation of care including admission/observation considered (upon arrival patient was considered for admission) Lab Data MDM Lab Attestation statement: I reviewed the patient's lab results. (no elevated WBC, baseline anemia, no renal failure, no UTI) 02/26/23 14:18 02/26/23 14:18 Labs: Lab Results 02/26/23 02/26/23 02/26/23 Range/Units 14:18 14:18 15:24 WBC 5.4 (4.8-10.8) X10*3/uL RBC 3.56 L (4.60-5.80) X10*6/uL Hgb 9.6 L (14.0-18.0) g/dl Hct 30.3 L (42.0-52.0) % MCV 85.1 (80.0-98.0) fL MCH 27.0 (27.0-33.0) pg MCHC 31.7 (31.0-36.0) g/dl RDW 15.2 (11.0-16.0) % Plt Count 210 (160-400) X10*3/uL MPV 12.1 (9.4-12.4) fL Immature Gran % (Auto) 0.2 (0.0-0.4) % Neut % (Auto) 76.5 H (45-73) % Lymph % (Auto) 14.2 L (20-40) % [place] % (Auto) 7.4 (2-11) % Eos % (Auto) 1.3 (0-4) % Baso % (Auto) 0.4 (0-2) % Lymph # (Auto) 0.8 L (1.2-4.9) X10*3/uL [place] # (Auto) 0.4 (0.1-1.2) X10*3/uL Eos # (Auto) 0.1 (0.0-0.4) X10*3/uL Baso # (Auto) 0.0 (0.0-0.2) X10*3/uL Abs Immat Gran (auto) 0.01 (0.00-0.03) X10*3/uL Absolute Neuts (auto) 4.2 (2.0-8.3) x10*3/uL Absolute Nucleated RBC 0.000 (0.0-0.012) X10*3/uL Nucleated RBC % (auto) 0.0 (0.0-0.2) /100WBC Sodium 142 (135-145) mmol/L Potassium 4.2 (3.3-5.1) mmol/L Chloride 108 (96-108) mmol/L Carbon Dioxide 25 (22-29) mmol/L Anion Gap 13 (12-20) BUN 10 (9-16) mg/dL Creatinine 1.35 (0.5-1.4) mg/dL Estim Creat Clear Calc 52.9 Estimated GFR 52 Random Glucose 96 (60-115) mg/dL Calcium 9.2 (8.4-10.2) mg/dL Urine Color Yellow Urine Appearance Clear Urine pH 8.0 (5.0-9.0) Ur Specific [place] 1.010 (1.005-1.025) Urine Protein Negative (Neg-Trace) mg/dL Urine Glucose (UA) Negative (Negative) mg/dL Urine Ketones Negative (Negative) mg/dL Urine Blood Negative (Negative) Urine Nitrite Negative (Negative) Ur Leukocyte Esterase Trace H (Negative) Urine RBC 0-2 (0-2) /HPF Urine WBC 0-5 (0-5) /HPF Ur Squamous Epith Cells 0-2 (0-2) /HPF Urine Bacteria None Seen (None Seen) Hyaline Casts 3-5 (0-2) /LPF Urine Opiates Screen (Not Detect) Urine Fentanyl Screen (Not Detect) Ur Barbiturates Screen (Not Detect) Ur Phencyclidine Scrn (Not Detect) Ur Amphetamines Screen (Not Detect) U Benzodiazepines Scrn (Not Detect) Urine Cocaine Screen (Not Detect) U Marijuana (THC) Screen (Not Detect) 02/26/23 Range/Units 15:24 WBC (4.8-10.8) X10*3/uL RBC (4.60-5.80) X10*6/uL Hgb (14.0-18.0) g/dl Hct (42.0-52.0) % MCV (80.0-98.0) fL MCH (27.0-33.0) pg MCHC (31.0-36.0) g/dl RDW (11.0-16.0) % Plt Count (160-400) X10*3/uL MPV (9.4-12.4) fL Immature Gran % (Auto) (0.0-0.4) % Neut % (Auto) (45-73) % Lymph % (Auto) (20-40) % [place] % (Auto) (2-11) % Eos % (Auto) (0-4) % Baso % (Auto) (0-2) % Lymph # (Auto) (1.2-4.9) X10*3/uL [place] # (Auto) (0.1-1.2) X10*3/uL Eos # (Auto) (0.0-0.4) X10*3/uL Baso # (Auto) (0.0-0.2) X10*3/uL Abs Immat Gran (auto) (0.00-0.03) X10*3/uL Absolute Neuts (auto) (2.0-8.3) x10*3/uL Absolute Nucleated RBC (0.0-0.012) X10*3/uL Nucleated RBC % (auto) (0.0-0.2) /100WBC Sodium (135-145) mmol/L Potassium (3.3-5.1) mmol/L Chloride (96-108) mmol/L Carbon Dioxide (22-29) mmol/L Anion Gap (12-20) BUN (9-16) mg/dL Creatinine (0.5-1.4) mg/dL Estim Creat Clear Calc Estimated GFR Random Glucose (60-115) mg/dL Calcium (8.4-10.2) mg/dL Urine Color Urine Appearance Urine pH (5.0-9.0) Ur Specific [place] (1.005-1.025) Urine Protein (Neg-Trace) mg/dL Urine Glucose (UA) (Negative) mg/dL Urine Ketones (Negative) mg/dL Urine Blood (Negative) Urine Nitrite (Negative) Ur Leukocyte Esterase (Negative) Urine RBC (0-2) /HPF Urine WBC (0-5) /HPF Ur Squamous Epith Cells (0-2) /HPF Urine Bacteria (None Seen) Hyaline Casts (0-2) /LPF Urine Opiates Screen Not Detected (Not Detect) Urine Fentanyl Screen Not Detected (Not Detect) Ur Barbiturates Screen Not Detected (Not Detect) Ur Phencyclidine Scrn Not Detected (Not Detect) Ur Amphetamines Screen Not Detected (Not Detect) U Benzodiazepines Scrn Not Detected (Not Detect) Urine Cocaine Screen Not Detected (Not Detect) U Marijuana (THC) Screen Not Detected (Not Detect) Independent Interpretation I performed an independent interpretation of an: EKG (sinus 70, no st or twave changes), Plain X-Ray (cervical: severe djd) and CT Scan (severe atrophy) Radiology Impression Discussion of test interpretation with radiology: I have reviewed the radiologist's reading. Independent Historian Clinical information obtained from an independent historian. History obtained from or confirmed by: Other (son) External Record Review External record reviewed: Inpatient record and Outpatient record Prescription Management I considered prescription management with: Antibiotic (considered but no evidence of UTI) Chronic Conditions Patient?s care impacted by: Other (renal and bladder cancer) Social Determinants assisted living for memory issues Discharge Plan Discharge Clinical Impression: Acute confusion, Dementia Patient Disposition: Home, Self-Care Instructions: Acute Delirium (ED), Dementia (ED) Additional Instructions: Take your medications as prescribed. If you were prescribed antibiotics today, it is important that you take your medication to their entirety, do not skip any doses, do not finish them early. Follow-up with your primary care provider this week. Return to the emergency department with new or worsening symptoms. Such as fevers, chills, chest pain, shortness of breath, nausea, vomiting, dizziness, headache, vision changes, lethargy In case of emergency call 911 Prescriptions: No Action amlodipine 5 mg tablet 5 mg PO DAILY Qty: 90 1RF sertraline 50 mg tablet 50 mg PO DAILY 30 Days Qty: 30 2RF trazodone 100 mg tablet 100 mg PO BEDTIME PRN (Reason: sleep) Qty: 30 0RF albuterol sulfate [Ventolin HFA] 90 mcg/actuation HFA aerosol inhaler 2 puff inhalation Q4H PRN (Reason: for wheezing) Qty: 18 2RF zolpidem 10 mg tablet 10 mg PO BEDTIME PRN (Reason: insomnia) 30 Days Qty: 30 1RF oxycodone 20 mg tablet 20 mg PO TID PRN (Reason: SEVERE PAIN) Referrals: Prashanth BENOIT [Outside]
--- NOTE | 2023-02-26 13:53 | ECG_ITS ---
Test Reason : FOUND ON THE GROUND Blood Pressure : / mmHG Vent. Rate : 068 BPM Atrial Rate : 068 BPM P-R Int : 198 ms QRS Dur : 100 ms QT Int : 442 ms P-R-T Axes : 032 -28 012 degrees QTc Int : 469 ms Normal sinus rhythm Possible Left atrial enlargement Septal infarct , age undetermined Abnormal ECG When compared with ECG of 03-DEC-2021 20:51, Septal infarct is now Present Referred By: Richie Booth Electronically Signed By:MADONNA IRBY
--- NOTE | 2023-02-26 13:54 | PC.NURSE ---
Patient took off his collar refuses to keep it on. Dr. Cartwright notified. MD states try to convince him to keep it on. I wall see if he will comply. Patient refused. Doesn't want to stay. Will call son patient requested to call him.
--- NOTE | 2023-02-26 14:06 | PC.NURSE ---
Dr. Booth removed urostomy bag because it was leaking. Called OR for cardiovascular surgical tech to bring up proper urostomy bag. [phone].
[2023-02-26 14:23] LABS: MANUAL DIFF FLAG NO
[2023-02-26 14:25] LABS: Basophils Percent Auto 0.4 % (0-2); Eosinophils Absolute Auto 0.1 X10*3/uL (0.0-0.4); Eosinophils Percent Auto 1.3 % (0-4); Hematocrit 30.3 % (42.0-52.0); Hemoglobin 9.6 g/dl (14.0-18.0); Imm Gran Abs Auto 0.01 X10*3/uL (0.00-0.03); Imm Gran Pct Auto 0.2 % (0.0-0.4); Lymphocytes Absolute Auto 0.8 X10*3/uL (1.2-4.9); Lymphocytes Percent Auto 14.2 % (20-40); Mean Corpuscular HGB Conc 31.7 g/dl (31.0-36.0); Mean Corpuscular Volume 85.1 fL (80.0-98.0); Mean Platelet Volume 12.1 fL (9.4-12.4); Monocytes Absolute Auto 0.4 X10*3/uL (0.1-1.2); Monocytes Percent Auto 7.4 % (2-11); Neutrophils Absolute Auto 4.2 x10*3/uL (2.0-8.3); Neutrophils Percent Auto 76.5 % (45-73); Platelet Count 210 X10*3/uL (160-400); Red Blood Count 3.56 X10*6/uL (4.60-5.80); Red Cell Distribution Width 15.2 % (11.0-16.0); White Blood Count 5.4 X10*3/uL (4.8-10.8)
[2023-02-26 14:40] LABS: Anion Gap 13 (12-20); Blood Urea Nitrogen 10 mg/dL (9-16); Calcium 9.2 mg/dL (8.4-10.2); Carbon Dioxide 25 mmol/L (22-29); Chloride 108 mmol/L (96-108); Creatinine Clr Calc Pharmacy 52.9; Estimated Glomerular Filt Rate 52; Glucose Random 96 mg/dL (60-115); Potassium 4.2 mmol/L (3.3-5.1); Sodium 142 mmol/L (135-145)
--- NOTE | 2023-02-26 15:10 | PC.NURSE ---
Applied a new urostomy bag to patient looks like its not leaking. Will collect a urine when we have enough in the bag. Spoke to son he knows he's here and states the urostomy bag is always leaking. Patient c/o right groin pain 12/08. Patient states he want to go back home. Patient is altered not able to go back at this time.
[2023-02-26 15:30] LABS: Appearance Urine Clear; Color Urine Yellow; Glucose Urine UA Negative (Negative); Leukocyte Esterase Urine Trace (Negative); Nitrite Urine Negative (Negative); UMIC TRIGGER UACC YES; Urine Blood Negative (Negative); Urine Ketones Negative (Negative); Urine Protein Negative (Neg-Trace)
[2023-02-26 15:32] LABS: Bacteria Urine None Seen (None Seen); RBC Urine 0-2 /HPF (0-2); Squamous Epithelial Cell Urine 0-2 /HPF (0-2); WBC Urine 0-5 /HPF (0-5)
[2023-02-26 17:29] VITALS: BP 190/88; PULSE 61; RESP 18; TEMP 36.6; O2SAT 96
[2023-02-26 19:40] VITALS: BP 202/79; PULSE 62; RESP 18; TEMP 36.4; O2SAT 97
--- NOTE | 2023-02-26 19:59 | PC.NURSE ---
Patient c/o right groin pain tigered Dr. Booth at 7:58 PM. patient would like urostomy hooked up to graves bag. also blood pressure is 202/79 in 8 pain in right groin takes oxycodone 20mg at home.
[2023-02-26 20:04] LABS: Amphetamine Screen Urine Not Detected (Not Detect); Barbiturates, Urine Not Detected (Not Detect); Benzodiazepines Screen Urine Not Detected (Not Detect); Cannabinoid Screen Urine Not Detected (Not Detect); Cocaine Screen Urine Not Detected (Not Detect); Fentanyl, urine Not Detected (Not Detect); Opiate Screen Urine Not Detected (Not Detect); Phencyclidine Screen Urine Not Detected (Not Detect)
--- NOTE | 2023-02-26 20:19 | PHA.MEDREC ---
Pharmacy Consult ? Medication Reconciliation Pharmacy has completed the medication reconciliation. Patient confused. Med rec done by claim history. Shari MckeonD
[2023-02-26] MEDS: oxyCODONE HCl Immed Release 5 MG TABLET 20 MG PO (20:26)
--- NOTE | 2023-02-26 20:42 | PC.NURSE ---
pt arrived via main [facility]
[2023-02-26 20:43] VITALS: BP 205/88; PULSE 67; RESP 16; TEMP 36.6; O2SAT 94
--- NOTE | 2023-02-26 21:10 | MHC.CM.ED ---
BELLA met with patient at the request of Dr. Booth. Pt is medically cleared. Pt was found outside on the ground at a construction site. Bystanders called the ambulance. Pt has no recollection of todays events and does not know why he is in the Emergency Room. Pt tells me he lives alone. Pt lives at [facility] in [place]. Pt tells CM there are 20 apartments in the facility and he has MOW. Uses a cane. 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 States he no longer drives and walks or rides his bicycle. Pt states his HCP is his son. HCP on file: [facility] ([phone]). 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 PCP is Dr. Pineda. States he has an oncologist at [facility], but cannot remember his name. States he has enlarged lymph nodes and he is having a biopsy on Mar 06 at [facility]. Pt states he was told it was stage 4 cancer, but the doctors our unsure from where. States he thinks it may be from his bladder. Pt had kidney cancer, and then bladder CA and prostate Ca. Pt states he must have the biopsy to find out how long he has to live and cannot go to [facility]. CM explained to patient that the has concerns about his confusion and ability to safely go home. Pt states CM should call his son, but states his son doesn't help him much. CM spoke with son, Cj, who states that this has happened to his father in the past, and he usually gets better. States he can bring his father home when discharged, but that he lives alone and he cannot care for him. jC verifies that patient lives in elderly housing and has MOW. States that his father had a CT scan at [facility], [facility], in November of 2022 and that his lymph nodes are enlarged. States the oncologist thinks it's probably a stage 4 cancer, but family is unsure of where from. Son thinks it's probably his kidney/bladder. Verifies that the biopsy is scheduled for Mar [address] Thomas (? spelling) is his oncologist at [facility] and Dr. Mena is his father's urologist. Pt has an ileostomy. Cj also states his father had a stroke in 2019 and has frequent UTI's. Plan of care: Pt to stay overnight. PT evaluation in the am. ? assess patient for capacity, however patient is very aware of his medical condition. No referrals yet placed pending PT assessment. CM will follow for discharge planning.
[2023-02-26] MEDS: traZODone HCL 100 MG TABLET PO (22:07)
[2023-02-26] MEDS: Albuterol Sulfate 90 MCG 8 GM INHALER 2 PUFF INHALE (22:07)
[2023-02-26] MEDS: Zolpidem Tartrate 5 MG TABLET PO (22:07)
--- NOTE | 2023-02-26 22:11 | PC.NURSE ---
pt b/p /, denies any pain, Dr. Booth notified
[2023-02-26 23:21] VITALS: BP 161/83; PULSE 80
[2023-02-27] MEDS: oxyCODONE HCl Immed Release 5 MG TABLET 20 MG PO (04:38)
--- NOTE | 2023-02-27 04:44 | PC.NURSE ---
pt c/o 02/07 RLQ pain that rdiates to lower back, medicated with 20mg of oxycodone po
[2023-02-27 05:36] VITALS: BP 177/74; PULSE 69; RESP 16; TEMP 36.5; O2SAT 95
[2023-02-27 07:44] VITALS: BP 177/74; PULSE 69; O2SAT 95
--- NOTE | 2023-02-27 08:00 | PC.NURSE ---
pt did not recieve food tray - kitchen notified. states they will bring the tray up shortly.
--- NOTE | 2023-02-27 08:01 | PC.NURSE ---
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 pt verbalizes that he has had the urostomy for about a year and states that it has leaked ever since the day that he got it. pt states that he has seen providers and specialists about the leaking and they told him that he needs to go to a specialist in [place] to fix the issue. pt in count includes the [facility]. skin cleaned and intact. call sheikh within reach.
[2023-02-27] MEDS: Sertraline HCL 50 MG TABLET PO (08:10)
[2023-02-27] MEDS: amLODIPine Besylate 5 MG TABLET PO (08:10)
--- NOTE | 2023-02-27 08:11 | PC.NURSE ---
pt a&ox3, pt verbalizing 7/10 pain in the groin oziel. pt verbalizes that this is a constant pain and has been bothering him for months. medication administered per provider order. bed alarm turned on. call sheikh placed within reach.
--- NOTE | 2023-02-27 11:05 | MHC.CM.ED ---
Patient remains in ER overflow. Physical therapy eval completed. Home therapy is recommended. Met with patient in regards to discharge planning. Patient feels he can safely go home. Referral made to [facility] at patient's request for assisted and physical therapy. Spoke with patient's son, Cj, via telephone at [phone]. Cj will be here at 1130am. Patient, Aliya OCASIO, and Leyda KAYE aware. Continue to monitor for d/c needs.
--- NOTE | 2023-02-27 11:41 | PC.NURSE ---
pt resting comfortably watching television in no apparent distress. bed alarm turned on. call sheikh placed within reach.
--- NOTE | 2023-02-27 11:42 | PC.NURSE ---
per CM, awaiting for provider to put discharge paperwork in so pt can be transferred to front lobby where pt's son will be bringing him home. will d/c patient when paperwork is put in.
--- NOTE | 2023-02-27 11:55 | PC.NURSE ---
this nurse got a tiger text from case management this morning that the patient is to be discharged and out front of the ed awaiting for sons arrival for 1130 that the provider will put in the dc paperwork, after a period of time it was noted that there was not d/c paperwork in yet- case management was notified of this and they reminded the provider to enter it. this nurse then got a phone call from security in the [place] who was with the patients son, the son was put on the phone and he expressed his anger that he had left work arrived to the ED and his father wasnt ready and waiting for him. This nurse explained to the son that the son is dressed and ready but we were unable to bring the patient until he had appropriate discharge paperwork by the provider. The son again expressed his anger and stated that he was returning to work and we should call him when everything is all set and he is sitting in the WR waiting for his arrival. This nurse called the spring encaser Bridget and told her what occurred with the son- she stated that she had reached out to the provider for the discharge paperwork.
--- NOTE | 2023-02-27 12:35 | PC.NURSE ---
went over discharge paperwork with pt - pt verbalized understanding. pt currently getting changed to go home with son. pt's son was contacted via telephone. son states that he will be here at 1. will have pt brought down in wheelchair to front lobby to be discharged by 1.
== END 2023-02-27 13:03 | disposition home or self-care (01) ==
PROVIDERS: Emergency Provider Emergency Medicine
DX: F03.918 Unspecified dementia, unspecified severity, with other behavioral disturbance (principal); R94.31 Abnormal electrocardiogram [ECG] [EKG]; M54.2 Cervicalgia; R51.9 Headache, unspecified; R26.81 Unsteadiness on feet; Z79.899 Other long term (current) drug therapy
CPT/HCPCS: 36415; 70450; 72040; 80048; 80307; 81001; 85025; 93005; 97162; 99285

== ENCOUNTER 2023-07-25 11:04 | Outpatient (AMB) | payer MEDICARE, MEDICAID, SELFPAY ==
[2023-07-25 11:07] VITALS: BP 150/90; PULSE 70; O2SAT 95; BMI 29.2
--- NOTE | 2023-07-25 11:07 | A.OFFPC_ITS ---
Vital Signs 07/25/23 11:07 Height 5 ft 8 in Weight 192 lb BMI 29.2 BP 150/90 H Blood Pressure Location Lt brachial Position Sitting Pulse 70 Pulse Source Pulse Oximeter Pulse Oximetry (%) 95 Oxygen Delivery Method Room Air Intake Visit Reasons: Follow up Inspection Supervisor Required: No Accompanied by: Self / Same As Patient Allergies piperacillin [From ZOSYN] Allergy (Intermediate, Verified 07/25/23 12:00) REDNESS/WARMTH TO IV SITE. tazobactam [From ZOSYN] Allergy (Intermediate, Verified 07/25/23 12:00) REDNESS/WARMTH TO IV SITE. ibuprofen Allergy (Unknown, Verified 07/25/23 12:00) Unknown lamotrigine [Lamictal] Allergy (Unknown, Verified 07/25/23 12:00) Unknown Anti-Inflammatory Enzyme Allergy (Unknown, Uncoded 07/25/23 12:00) rash on both legs Medication List - Last Reconciled 07/25/23 by Nelson Pineda MD albuterol sulfate 90 mcg/actuation (Ventolin HFA) 2 puffs inhalation Q4H PRN amlodipine 5 mg PO DAILY ostomy supplies (Visi-Flow [employer]ing [employer] [facility] misc) As directed oxycodone 20 mg PO TID PRN oxycodone 20 mg PO 2-3 X A DAY PRN; #84- 28 DAYS PARTIAL REFILL UPON PT REQUEST 28 days sertraline 50 mg PO DAILY 30 days trazodone 100 mg PO BEDTIME PRN zolpidem 10 mg PO BEDTIME PRN 30 days Tobacco use date assessed: 07/25/23 Fall risk assessment: 1 Fall in past year Last assessed Fall Risk: 07/25/23 Dental Screening Dental Screen Date: 07/25/23 Did you have a dental visit in the last 12 months?: No Did you have a dental problem in the last 6 months where you did not have access to dental care?: No Was dental information given to patient?: No HPI Follow up HPI Details Patient comes in today for his follow up visit - was last seen in August 2022 States that he has been undergoing treatment for mahsa 4 bladder cancer for a few months now - patient is being followed up and managed by oncology at [facility] Based on information gathered from patient and his son, it sounds like he has been undergoing treatment for his bladder CA with immunotherapy since 2022 although we have not received any correspondence from [facility] regarding his treatments and follow up visits over the past year now States that he has a follow up CT scheduled for next month on 08/12/2023 Patient states that he continues to experience increased pain diffusely, including over his lower back and both legs He denies any fever, headaches or dizziness Denies any chest pains, no increased shortness of breath No nausea / vomiting, no abdominal pain No change in bowel habits noted FORMERLY [facility], [facility]1983 Medical History Overweight (BMI 25.0-29.9) Presence of urostomy CKD (chronic kidney disease), stage III Hematuria Hyperkalemia Hypertension, uncontrolled Hydronephrosis Urinary tract infection Acute renal failure Hypertension Bipolar disorder Acute kidney injury Dermatitis 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 Pruritic erythematous rash Anemia Obesity (BMI 30-39.9) Insomnia Lumbar degenerative disc disease Type 2 diabetes mellitus with diabetic chronic kidney disease Benign essential hypertension Chronic kidney disease (CKD), stage III (moderate) Hematuria Metabolic encephalopathy HLD (hyperlipidemia) Bladder cancer Asthma HTN (hypertension) Surgical History History of urinary diversion procedure Hx of total cystectomy (~08/03/21) History of left nephrectomy (~11/29/20) History of cystoscopy History of bladder surgery Family History Father Hypertension CVD (cardiovascular disease) Mother No problems noted. Social History Household Members: None Housing: Apartment Do you presently have visiting nurse or other home services: No Alcohol intake: current Alcohol intake frequency: does not drink Comment: pt refuses alarm Patient Tobacco Use Status: Never used Tobacco e-Cigarette/Vaping Use: Never Used Second Hand Smoke Exposure: No Advance Directives Date on File: 11/17/21 service: No Current occupational status: retired and disabled Cognitive needs: No Hearing needs: No Vision needs: No Questionnaire PHQ-9 Over the last 2 weeks, how often have you been bothered by any of the following problems? 1. Little interest or pleasure in doing things: more than half the days 2. Feeling down, depressed, or hopeless: more than half the days 3. Trouble falling or staying asleep, or sleeping too much: more than half the days 4. Feeling tired or having little energy: several days 5. Poor appetite or overeating: not at all 6. Feeling bad about yourself - or that you are a failure or have let yourself or your family down: several days 7. Trouble concentrating on things, such as reading the newspaper or watching television: not at all 8. Moving or speaking so slowly that other people could have noticed. Or the opposite - being so fidgety or restless that you have been moving around a lot more than usual: not at all 9. Thoughts that you would be better off or of hurting yourself in some way: not at all Total score: 8 Depression Screening Interpretation: Positive Depression Screening Follow-up: Existing condition and In treatment Depression Screening Done: Yes 91238 - PHQ-9 Billing: Yes Source: Developed by Drs. Con Turcios, Shaista Silveira, Bryson Gutierrez and colleagues, with an educational greer from [employer]. Thrive Questionnaire Date Thrive assessed: 07/25/23 I am a: Patient What is your living situation today?: I have a steady place to live Within the past 12 months, did the food you bought not last and you didn't have the money to get more?: Never true Within the past 12 months, did you worry whether your food would run out before you got money to buy more?: Never true Do you have trouble paying for medicines?: No Do you have trouble getting transportation to medical appointments?: No Do you have trouble paying your heating and electricity bill?: No Do you have trouble taking care of your child, family member or friend?: No Do you have trouble with day-to-day activities such as bathing, preparing meals, shopping, managing finances, etc.?: No Are you currently unemployed and looking for a job?: No Are you interested in more education?: No Please select the resources that you would like help with: None Currently or been in a relationship where the following occur: no concerns reported THRIVE Score: 0 AUDIT C Alcohol Use Questionnaire (AUDIT-C) 1. How often do you have a drink containing alcohol?: Never 3. How often do you have six or more drinks on one occasion?: Never Total Score: 0 Score Reviewed/Action Taken: Yes CELSA-7 AMB Questionnaire CELSA-7 Date CELSA - 7 assessed: 07/25/23 Feeling nervous, anxious, or on edge: 0 = Not at all Not being able to stop or control worryin = Not at all Worrying too much about different things: 0 = Not at all Trouble relaxin = Not at all Being so restless that it is hard to sit still: 0 = Not at all Becoming easily annoyed or irritable: 0 = Not at all Feeling afraid as if something awful might happen: 0 = Not at all Total CELSA-7 score (0-4 normal; 5-9 mild; 10-14 moderate; 15-21 severe): 0 Source: Developed by Drs. Con Turcios, Shaista Silveira, Bryson Gutierrez and colleagues, with an educational greer from [employer]. Review of Systems Const Denies chills, Reports fatigue, Denies fever(s) and Denies headache(s) ENT Denies dysphagia, Denies dizziness, Denies otalgia, Denies headache(s), Reports neck pain (recurrent), Denies odynophagia, Denies sinus pain and Denies sore throat Card Denies chest pain, Denies palpitations and Denies dyspnea Resp Denies cough and Denies dyspnea GI Denies abdominal pain, Denies constipation, Denies dysphagia, Denies heartburn, Denies diarrhea, Denies nausea, Denies odynophagia and Denies vomiting Details: (+) permanent ostomy with bag Reports hematuria (on and off) Musc Reports back pain (over the lumbar spine - chronic), Reports arthralgias (involving multiple joints) and Reports neck pain (recurrent) Skin/Breast Details: (+) recurrent scattered erythematous rash Neuro Denies dizziness and Denies headache(s) Psych Reports depression Endo Reports fatigue and Denies palpitations Santiago/Lymph Denies easy bruising Physical exam (Primary Care) Vital Signs: Last Vital Signs Pulse 70 07/25/23 11:07 BP 150/90 H 07/25/23 11:07 Pulse Ox 95 07/25/23 11:07 Oxygen Delivery Method Room Air 07/25/23 11:07 BMI result Body Mass Index 29.2 Tobacco/Smoking Status: Tobacco use Status Tobacco use date assessed 07/25/23 07/25/23 11:22 Patient Tobacco Use Status Never used Tobacco 07/25/23 11:08 e-Cigarette/Vaping Use Never Used 07/25/23 11:08 PHQ-9: PHQ-9 Score PHQ-9: Total score 8 07/28/23 15:28 Depression Screening Interpretation: Positive Depression Screening Follow-up: Existing condition and In treatment Thrive Assessment: Date of Thrive Assessment Date Thrive assessed 07/25/23 07/25/23 11:22 Currently or been in a relationship where the following occur: no concerns reported Const General: no acute distress and alert HENMT Ears: TM's normal bilaterally and EAC's normal Throat: Yes posterior oropharynx normal and Yes tonsils normal (no TP congestion) Neck Neck: Yes no lymphadenopathy and Yes supple Resp Auscultation: clear to auscultation bilaterally, no rales and no wheezes Cardio Rate: regular rate Rhythm: regular rhythm Heart sounds: no murmurs GI Other: (+) permanent ostomy over the suprapubic area Palpation (GI): Soft to palpation and nontender Auscultation: normal bowel sounds Back/Spine/Pelvis Cervical Spine: Cervical spine tenderness Thoracic/Lumbar Spine: lumbar spinal tenderness Skin Rashes: rashes noted ((+) scattered erythematous pruritic rash) Extrem General: Yes no clubbing, cyanosis or edema Assessment and Plan Assessment & Plan (1) Bladder carcinoma: Code(s): C67.9 - Malignant neoplasm of bladder, unspecified Plan: Patient was diagnosed with 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, pN0 Underwent complete bladder cystectomy with ureteroileal conduit on 08/03/2021 He was seen by oncology and advised against chemotherapy, as he was reportedly told that he was not a good candidate for chemoTx CT abdomen and pelvis in November 2021 showed no evidence of metastatic disease BUT follow up CT done sometime in the summer of 2022 revealed (+) worsening adenopathy concerning for recurrent disease He was referred by urology to oncology subsequently for further work up and management and we have so far not received any correspondence or reports from oncology since Based on what patient and his son is telling us today, it sounds like he has been on some immunotherapy since March 2023 for stage 4 bladder cancer and he will have a follow up CT done next month (August 2023) for reassessment of treatment response - will try to obtain copies of his pertinent records from [facility] for review and documentation Follow up with urology and oncology as scheduled (2) 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: Code(s): C65.2 - Malignant neoplasm of left renal pelvis; C66.2 - Malignant neoplasm of left ureter Plan: S/P laparoscopic left nephroureterectomy at [facility] on 11/29/2020 Follow up with urology as scheduled (3) Neck pain: Code(s): M54.2 - Cervicalgia Plan: Repeat cervical spine x-rays done in May 2022 revealed (+) cervical spondylosis without any acute fracture identified Cervical spine MRI done in the past revealed (+) multilevel cervical spondylosis (4) Dermatitis: Code(s): L30.9 - Dermatitis, unspecified Plan: (+) recurrent widespread itchy rash, especially on his lower legs - symptoms have been ongoing for years Has been seen by dermatology (Dr. Medina and Dr. 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 Reyes) and sent for labs to check immunology - labs came back normal Has been treated with oral Prednisone as needed over the years; states that he has not taken Prednisone for about a year now He was also reportedly referred to and seen by artillery officer (Dr. Albright) on [facility] for further evaluation about a year ago - office has not yet received any reports for review He currently appears controlled on Triamcinolone acetonide 0.1% cream QD PRN - Rx refilled, per request (5) Benign essential hypertension: Code(s): I10 - Essential (primary) hypertension Plan: Reinforced low sodium diet - goal is systolic BP of at least 140 mm Continue Amlodipine 5 mg QD - due to his recently declining renal function, Lisinopril 30 mg QD was stopped and he was started back on Amlodipine 5 mg QD 1 to 2 yrs ago (6) Chronic kidney disease (CKD), stage III (moderate): Code(s): N18.30 - Chronic kidney disease, stage 3 unspecified Qualifiers: Chronic kidney disease stage 3 subtype: unspecified whether 3a or 3b Qualified Code(s): N18.30 - Chronic kidney disease, stage 3 unspecified Plan: Serum creatinine was at 1.35 and GFR was at 52 back on 02/26/2023 Patient has not had any follow up labs done here at [facility] since but states that he had labs drawn regularly every couple of weeks at [facility] lately Will try to obtain copies of his most recent labs from [facility] to review for now Will continue to monitor GFR and serum creatinine regularly (7) Pure hypercholesterolemia: Code(s): E78.00 - Pure hypercholesterolemia, unspecified Plan: Reinforced low cholesterol diet Stopped taking his Atorvastatin a while back; fasting lipids done in March 2020 were okay (his LDL was at 79 mg/dl) back then and they do not appear to have gotten worse on his follow up labs in May 2022 Will try to obtain a copy of his most recent labs done at [facility] for now and if they do not include a fasting lipid profile over the past year, will have patient get these rechecked before his next follow-up appointment (8) Type 2 diabetes mellitus with diabetic chronic kidney disease: Code(s): E11.22 - Type 2 diabetes mellitus with diabetic chronic kidney disease Qualifiers: Diabetes mellitus intermodal customer service insulin use: without group home use Chronic kidney disease stage: stage 3 (moderate) Chronic kidney disease stage 3 subtype: unspecified whether 3a or 3b Qualified Code(s): E11.22 - Type 2 diabe patti mellitus with diabetic chronic kidney disease; N18.30 - Chronic kidney disease, stage 3 unspecified Plan: In-office HgbA1c was at 6.0% when it was last checked in August 2022 at his last visit; was at 5.7% previously - goal is at least <7.0% Reinforced diabetic diet - patient has been able to control his DM with diet alone so far has not had to take any Rx for his blood sugar for the past couple of years (9) Asthma: Code(s): J45.909 - Unspecified asthma, uncomplicated Qualifiers: Asthma severity: moderate Asthma persistence: persistent Asthma complication type: uncomplicated Qualified Code(s): J45.40 - Moderate persistent asthma, uncomplicated Plan: Has been reportedly stable - continue Symbicort 160-4.5 mcg 2 puffs BID and Albuterol HFA 2 puffs 4 times a day as needed Patient also has Albuterol solution 0.083% to use with his nebulizer when needed (10) Lumbar degenerative disc disease: Code(s): M51.36 - Other intervertebral disc degeneration, lumbar region Plan: Reinforced activity and weight-lifting restrictions Continue Oxycodone 20 mg 2 to 3 times a day as needed for pain Will again consider pain management referral if his pain progresses and are no longer adequately controlled on his current Rx (11) Insomnia: Code(s): G47.00 - Insomnia, unspecified Qualifiers: Insomnia type: unspecified Qualified Code(s): G47.00 - Insomnia, unspecified Plan: Sleep hygiene reinforced Continue Zolpidem 10 mg Q HS PRN Advised patient that his trouble sleeping through the night has more to do with his urostomy issues as he has had to wake up every couple of hours to change his bag so increasing his sleeping medications would not be the right course of action at this time (12) Overweight (BMI 25.0-29.9): Code(s): E66.3 - Overweight Plan: Reinforced diet Exercise is unrealistic at this time given patient's cancer diagnosis and multiple comorbidities Plan Follow up in 4 months Medications: New triamcinolone acetonide 0.1% 1 appl topical DAILY PRN 454 grams 2RF rash Coding Level of Care Code Est Pt Level 4 (30540) Diagnoses Bladder carcinoma C67.9 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 C65.2; C66.2 Neck pain M54.2 Dermatitis L30.9 Benign essential hypertension I10 Stage 3 chronic kidney disease, unspecified whether stage 3a or 3b CKD N18.30 Chronic kidney disease stage 3 subtype: unspecified whether 3a or 3b Pure hypercholesterolemia E78.00 Type 2 diabetes mellitus with stage 3 chronic kidney disease, without long-term current use of insulin, unspecified whether stage 3a or 3b CKD E11.22; N18.30 Diabetes mellitus group home insulin use: without intermodal customer service use Chronic kidney disease stage: stage 3 (moderate) Chronic kidney disease stage 3 subtype: unspecified whether 3a or 3b Moderate persistent asthma without complication J45.40 Asthma severity: moderate Asthma persistence: persistent Asthma complication type: uncomplicated Lumbar degenerative disc disease M51.36 Insomnia, unspecified type G47.00 Insomnia type: unspecified Overweight (BMI 25.0-29.9) E66.3
== END 2023-07-25 14:17 | disposition home or self-care (01) ==
PROVIDERS: Visit Provider Internal Medicine
DX: I12.9 Hypertensive chronic kidney disease with stage 1 through stage 4 chronic kidney disease, or unspecified chronic kidney disease (principal); C67.9 Malignant neoplasm of bladder, unspecified; C65.2 Malignant neoplasm of left renal pelvis; N18.30 Chronic kidney disease, stage 3 unspecified
CPT/HCPCS: 99214

== ENCOUNTER 2024-01-07 12:50 | Inpatient (IN) | payer MEDICARE, SELFPAY ==
--- NOTE | ~2024-01-07 | CT_ITS ---
EXAMINATION: CT HEAD WITHOUT CONTRAST CT CERVICAL SPINE WITHOUT CONTRAST CLINICAL INFORMATION: Neck pain. Fall with head strike. COMPARISON: Head CT dated 02/26/[address] cervical spine from 12/03/2021. TECHNIQUE: Contiguous axial imaging was performed from the skullbase to vertex without intravenous administration of contrast. Multidetector helical imaging was performed through the cervical spine. Limited with motion artifacts. This CT examination was performed using dose optimization techniques as appropriate, variously including the following: *Automated exposure control *Adjustment of mA and/or kV according to patient size (this includes techniques or standardized protocols for targeted exams where dose is matched to indication/reason for exam; i.e. extremities or head) *Use of iterative reconstruction technique DLP: 1250 mGy-cm. FINDINGS: HEAD: There is no evidence of acute intracranial hemorrhage or territorial infarction. No abnormal mass effect or midline shift is seen. Escalante to white matter differentiation is well preserved. A small retrocerebellar arachnoid cyst is unchanged. 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 Ventricular size is unchanged. Small chronic lacunar infarcts also visible in the thalami. Chronic white matter microangiopathy is grossly stable. The osseous structures and soft tissues are normal. The mastoid air cells and visualized portions of the paranasal sinuses are well aerated. Severe leftward nasal septal deviation and nasal septal spurring noted. CERVICAL SPINE: No acute fracture or significant subluxation is identified in the cervical spine. Multilevel disc-osteophyte complexes and hypertrophic facet arthropathy again visible with varying degrees of foraminal encroachment. Moderate to severe multilevel central canal stenosis is evident. There is ankylosis of the right C3-C4 facet joint. The atlantoaxial articulation is normally maintained. The paraspinal soft tissues are normal. The lung apices are clear. CT/CT cervical spine wo IV con IMPRESSION: 1. No acute intracranial hemorrhage or territorial infarction. Moderate diffuse brain parenchymal volume loss and chronic lacunar infarcts in the deep escalante matter structures. 2. No evidence of acute cervical spine traumatic injury. Moderate cervical spondylosis with moderate to severe multilevel central canal stenosis and foraminal narrowing.
--- NOTE | ~2024-01-07 | CT_ITS ---
EXAMINATION: CT CHEST WITH CONTRAST CLINICAL INFORMATION: Fall with chest trauma COMPARISON: CT abdomen 12/03/2021, chest radiograph 12/03/2021 TECHNIQUE: Multidetector volumetric CT imaging of the chest was obtained after the administration of 85 mL of Omnipaque 350 intravenous contrast without immediate adverse reactions. Axial MIP volume rendering provided. Sagittal and coronal reformatted images were obtained. This CT examination was performed using dose optimization techniques as appropriate, variously including the following: *Automated exposure control *Adjustment of mA and/or kV according to patient size (this includes techniques or standardized protocols for targeted exams where dose is matched to indication/reason for exam; i.e. extremities or head) *Use of iterative reconstruction technique DLP: 489 mGy-cm FINDINGS: Severe motion artifact degrades diagnostic quality. LUNGS: Right basilar atelectasis is seen increased when compared to 12/03/2021. The lungs are otherwise unremarkable with no evidence of inflammation or nodules. MEDIASTINUM: Heart size normal. Moderate coronary calcium. No mediastinal hematoma. Thoracic aorta unremarkable although there is marked motion artifact proximally. PLEURA: There is no pleural effusion. No pneumothorax. No pleural mass or thickening. AXILLA: No lymphadenopathy. UPPER ABDOMEN: Spleen mildly enlarged at 12.6 cm. No evidence of splenic or hepatic injury. There is marked perinephric stranding around the right kidney with mild hydronephrosis and dilatation of the proximal collecting system. The patient will be undergoing a CT scan of the abdomen and pelvis which will further evaluate this. OSSEOUS STRUCTURES: Marked degenerative changes are present throughout the spine. No fractures or bony destructive lesions. No rib fractures are seen. Marked artifact interferes with interpretation. CT/CT chest w IV con IMPRESSION: 1. No evidence of a traumatic injury in the chest. 2. Incidental note made of right basilar atelectasis, mild splenomegaly and marked perinephric stranding around the right kidney with mild hydronephrosis. The patient will be undergoing a CT scan of the abdomen and pelvis which will further evaluate this. Fleischner guidelines were followed.
--- NOTE | ~2024-01-07 | CT_ITS ---
EXAMINATION: CT ABDOMEN AND PELVIS WITH CONTRAST CLINICAL INFORMATION: Fall with abdominal trauma COMPARISON: CT abdomen pelvis 12/03/2021 TECHNIQUE: Multidetector volumetric images were obtained from the superior aspect of the liver through the pubic symphysis following administration 85 mL of Omnipaque 350 intravenous contrast. Sagittal and coronal reformatted images were obtained on the technologist's workstation. Oral contrast: No This CT examination was performed using dose optimization techniques as appropriate, variously including the following: *Automated exposure control *Adjustment of mA and/or kV according to patient size (this includes techniques or standardized protocols for targeted exams where dose is matched to indication/reason for exam; i.e. extremities or head) *Use of iterative reconstruction technique DLP: 1026 mGy-cm FINDINGS: LUNG BASES: See CT chest report - right lower lobe atelectasis/consolidation is present. LIVER, GALLBLADDER, AND BILIARY TREE: The liver is enlarged at 19 cm and demonstrates decreased attenuation suggesting hepatic steatosis. No evidence of a liver laceration.. No focal hepatic lesion or biliary ductal dilatation is present. The gallbladder is unremarkable with no evidence of radiopaque gallstones, gallbladder wall thickening, or obvious pericholecystic inflammatory changes. PANCREAS: Unremarkable. SPLEEN: Spleen is enlarged at 15 cm in length. No evidence of splenic injury. ADRENAL GLANDS: Unremarkable. KIDNEYS AND URETERS: Status post left nephrectomy. There is right-sided hydronephrosis down to the level of the UPJ. There is marked perinephric stranding. No perinephric hematoma is seen. Stranding measures water density. No renal mass or laceration is seen. BLADDER: Patient status post cystectomy. An ileal loop is seen in the right lower quadrant with urostomy. GASTROINTESTINAL TRACT: The rectosigmoid is markedly distended with stool with moderate stool seen throughout the remainder of the colon. There is colonic diverticulosis without diverticulitis. Degenerative changes are present in the spine. No spine or pelvic fracture is seen No bowel obstruction or free air. The small bowel is unremarkable. The appendix is normal ABDOMINAL WALL: There is evidence of prior possible left inguinal hernia repair small inguinal hernias are seen containing only fat with some fluid present on the right. No abdominal wall hematomas. LYMPH NODES: No retroperitoneal lymphadenopathy or retroperitoneal hematoma is VASCULAR: No evidence of a vascular injury PELVIC VISCERA: No hemoperitoneum or significant ascites. No free air OSSEOUS STRUCTURES: Degenerative changes are present spine. There is grade 1 anterolisthesis of L5 upon S1. CT/CT abdomen pelvis w IV con IMPRESSION: 1. No evidence of an acute traumatic injury in the abdomen or pelvis. 2. There is mild right-sided hydronephrosis and perinephric stranding but an obvious injury is not seen. 3. Incidental note made of enlarged fatty liver, splenomegaly, left nephrectomy, cystectomy with ileal loop and right lower quadrant urostomy, colonic diverticulosis and degenerative changes in the spine. Fleischner guidelines were followed.
[2024-01-07 12:50] VITALS: BP 189/101; PULSE 100; RESP 22; O2SAT 99
[2024-01-07 12:54] VITALS: BMI 27.4
--- NOTE | 2024-01-07 13:13 | ED.FALL ---
HPI - Fall General Chief Complaint: Fall Stated Complaint: FALL,FOUND ON GROUND FOR DAYS,CONFUSED PER EMS Time Seen by Provider: 01/07/24 13:04 Source: EMS Mode of arrival: EMS Limitations: altered mental status History of Present Illness ED Provider: Omari ALVARES HPI Narrative: This is a 73-year-old male coming from independent living facility past medical history ZINA, anemia, asthma, hypertension, bipolar, bladder cancer, cancel the left renal pelvis and ureter, hypertension, hyperlipidemia, hypokalemia, obesity, metabolic encephalopathy, transitional cell carcinoma of left kidney, urostomy in place, diabetes presenting to the emergency department status post fall, unclear downtime, patient unable to provide history. He is only responding to painful stimuli. Unable to answer questions. According to EMS other residents of the same building reported that patient has closed head not been moved from the washer for days, when they went to go check on patient he was found down and not responding to questions. He will track with his eyes when you are speaking to him. However very difficult time obtaining history and review of systems due to patient not being able to speak at this time. Related Data Home Medications ?Medication ?Instructions ?Recorded ?Confirmed oxycodone 20 mg tablet 20 mg PO Q4H PRN SEVERE PAIN 02/26/23 01/07/24 morphine 30 mg tablet,extended 30 mg PO Q12H 01/07/24 01/07/24 release prochlorperazine maleate 5 mg 5 - 10 mg PO Q6H PRN nausea 01/07/24 01/07/24 tablet Previous Rx's ?Medication ?Instructions ?Recorded ostomy supplies (Visi-Flow #1 ea 03/28/23 [facility] amlodipine 5 mg tablet 5 mg PO DAILY #90 tabs 06/26/23 sertraline 50 mg tablet 50 mg PO DAILY 30 days #30 tabs 11/06/23 trazodone 100 mg tablet 100 mg PO BEDTIME PRN sleep #30 11/06/23 tabs albuterol sulfate 90 mcg/actuation 2 puff inhalation Q4H PRN for 12/30/23 aerosol inhaler (Ventolin HFA) wheezing #18 ea Allergies Allergy/AdvReac Type Severity Reaction Status Date / Time piperacillin [From ZOSYN] Allergy Intermediate REDNESS/WARMTH Verified 01/07/24 12:57 TO IV SITE. tazobactam [From ZOSYN] Allergy Intermediate REDNESS/WARMTH Verified 01/07/24 12:57 TO IV SITE. ibuprofen Allergy Unknown Unknown Verified 01/07/24 12:57 lamotrigine [Lamictal] Allergy Unknown Unknown Verified 01/07/24 12:57 Anti-Inflammatory Enzyme Allergy Unknown rash on Uncoded 07/25/23 12:00 both legs Review of Systems Review of Systems: Yes all other systems are reviewed and are negative [facility] Past Medical History Attestation statement: The following information was validated with the patient. 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 Pruritic erythematous rash Anemia Obesity (BMI 30-39.9) Insomnia Lumbar degenerative disc disease Type 2 diabetes mellitus with diabetic chronic kidney disease Benign essential hypertension Chronic kidney disease (CKD), stage III (moderate) Hematuria Metabolic encephalopathy HLD (hyperlipidemia) Bladder cancer Asthma HTN (hypertension) Surgical History History of urinary diversion procedure Hx of total cystectomy (~08/03/21) History of left nephrectomy (~11/29/20) History of cystoscopy History of bladder surgery Family History Family History Father Hypertension CVD (cardiovascular disease) Mother No problems noted. Social History Social History Household Members: None Housing: Apartment Do you presently have visiting nurse or other home services: No Unable to assess alcohol history related to: Refusing to respond Alcohol intake: current Alcohol intake frequency: does not drink Comment: pt refuses alarm Patient Tobacco Use Status: Never used Tobacco e-Cigarette/Vaping Use: Never Used Second Hand Smoke Exposure: No Advance Directives: Yes Advance Directives on File: Yes Advance Directives Date on File: 11/17/21 Do you have a plan to hurt others: No Plan service: No Current occupational status: retired and disabled Cognitive needs: No Hearing needs: No Vision needs: No Physical Exam Vital Signs: Vital Signs: Last Vital Signs Temp 98.2 F 01/07/24 16:44 Pulse 98 01/07/24 16:44 Resp 20 01/07/24 16:44 BP 148/81 H 01/07/24 16:44 Pulse Ox 99 01/07/24 16:44 O2 Del Method Room Air 01/07/24 16:44 BMI result Body Mass Index 27.4 Appearance: Awake. Not oriented to person, place, time or situation. Unable to answer questions.? No acute distress.? Head: Normocephalic, atraumatic, no step-offs or deformities Eyes: Pupils equal, round and reactive to light.? ENT: Pharynx normal.? Neck: Normal inspection.? Neck supple.? CVS: Normal heart rate and rhythm.? Pulses normal.? Respiratory: No respiratory distress.? Breath sounds normal.? Abdomen: Soft and nontender.?+ urostomy bag that is duct taped on to patient's skin Skin: Skin warm and dry.? Normal skin color.? Normal skin turgor.? Extremities: No lower extremity edema.? No calf ttp. Global weakness Neuro: Awake. Not oriented to person, place, time or situation. Unable to answer questions. Course Reevaluation(s) Reevaluation #1: CBC with leukocytosis and left shift. Lactic WNL. Coags normal. Chemistry pending . UA w/ infection. ATBX ordered. Scans pending. Time: 14:15 Reevaluation #2: Patient with acute kidney injury. Total bilirubin 1.4 higher than his baseline. Elevated transaminases and a 2-1 fashion. Troponin 165.8 I suspect this is secondary to ZINA. BNP 1369 will hold on IVF at this time. Will give Lasix at this time. Time: 14:19 Reevaluation #3: Discuss this case with my attending who recommends gentle hydration. Agrees with my diagnosis and treatment plan. Time: 15:04 Additional Reevaluation(s): Plan hospital admisison Medications Administered Discontinued Medications Generic Name Dose Route Start Last Admin Trade Name Freq PRN Reason Stop Dose Admin Acetaminophen 650 mg 01/07/24 14:36 01/07/24 15:00 Acetaminophen Supp 650 Mg Supp.Rect OR 01/07/24 14:37 650 mg ONCE ONE Administration Furosemide 20 mg 01/07/24 14:42 01/07/24 14:59 Furosemide 20 Mg/2 Ml Vial IVPUSH 01/07/24 14:43 20 mg ONCE ONE Administration Protocol Ceftriaxone Sodium 1 gm/ 50 mls @ 100 mls/hr 01/07/24 13:16 01/07/24 14:31 Sodium Chloride IV 01/07/24 13:45 Infused ONCE ONE Infusion Sodium Chloride 1,000 mls @ 999 mls/hr 01/07/24 14:45 01/07/24 14:59 Ns IV 01/07/24 15:45 999 mls/hr .Q1H1M BALA Administration Iohexol 100 ml 01/07/24 13:34 01/07/24 13:35 Iohexol 350 Mg/Ml 100 Ml Infus..Btl IV 01/07/24 13:35 85 ml ONCE ONE Administration Medical Decision Making Medical Decision Making [facility] Narrative: 73-year-old male presents to the emergency department status post fall, patient unable to answer questions. Physical exam global weakness. Patient not following commands. Unable to obtain neurological assessment. Patient is unkempt. He has a urostomy bag depth tape to his abdomen. Bilateral pupils are pinpoint and not reactive to light. In a cervical collar. Will rule out traumatic injury to head, neck, chest, abdomen and pelvis. Will rule out UTI, metabolic derangements, dysrhythmia. Unlikely ACS, PE. Will also rule out rhabdomyolysis. Plan at this time labs, imaging, urine. Differential Diagnosis Differential Diagnoses: The differential diagnosis associated with the presentation includes Will rule out traumatic injury to head, neck, chest, abdomen and pelvis. Will rule out UTI, metabolic derangements, dysrhythmia. Unlikely ACS, PE. Will also rule out rhabdomyolysis. Admission/Observation Consideration of admission/observation: Escalation of care including admission/observation considered Lab Data [facility] Lab Attestation statement: I reviewed the patient's lab results. 01/07/24 13:44 01/07/24 13:44 Labs: Lab Results 01/07/24 01/07/24 01/07/24 Range/Units 13:34 13:36 13:44 WBC 20.1 H (4.8-10.8) X10*3/uL RBC 4.61 D (4.60-5.80) X10*6/uL Hgb 13.6 L D (14.0-18.0) g/dl Hct 41.2 L D (42.0-52.0) % MCV 89.4 (80.0-98.0) fL MCH 29.5 (27.0-33.0) pg MCHC 33.0 (31.0-36.0) g/dl RDW 14.9 (11.0-16.0) % Plt Count 161 (160-400) X10*3/uL MPV 9.8 (9.4-12.4) fL Immature Gran % (Auto) 0.5 H (0.0-0.4) % Neut % (Auto) 91.4 H (45-73) % Lymph % (Auto) 3.2 L (20-40) % [place] % (Auto) 4.7 (2-11) % Eos % (Auto) 0.0 (0-4) % Baso % (Auto) 0.2 (0-2) % Lymph # (Auto) 0.7 L (1.2-4.9) X10*3/uL [place] # (Auto) 1.0 (0.1-1.2) X10*3/uL Eos # (Auto) 0.0 (0.0-0.4) X10*3/uL Baso # (Auto) 0.1 (0.0-0.2) X10*3/uL Abs Immat Gran (auto) 0.11 H (0.00-0.03) X10*3/uL Absolute Neuts (auto) 18.4 H (2.0-8.3) x10*3/uL Absolute Nucleated RBC 0.000 (0.0-0.012) X10*3/uL Nucleated RBC % (auto) 0.0 (0.0-0.2) /100WBC Smear Tech's Comments VERIFIED PT 16.0 H (11.1-13.3) SEC INR 1.3 H (0.9-1.1) Sodium 140 (135-145) mmol/L Potassium 4.3 (3.3-5.1) mmol/L Chloride 107 (96-108) mmol/L Carbon Dioxide 23 (22-29) mmol/L Anion Gap 14 (12-20) BUN 30 H (9-16) mg/dL Creatinine 1.75 H (0.5-1.4) mg/dL Estim Creat Clear Calc 39.3 Estimated GFR 39 POC Glucose 89 (60-115) mg/dL Random Glucose 96 (60-115) mg/dL Lactic Acid 1.3 (0.5-2.0) mmol/L Calcium 9.1 (8.4-10.2) mg/dL Magnesium 1.8 (1.6-2.6) mg/dL Total Bilirubin 1.4 H (0.0-1.0) mg/dL AST 102 H (5-37) U/L ALT 66 H (0-40) U/L Alkaline Phosphatase 192 H (39-117) U/L Total Creatine Kinase 4793 H (38-174) U/L Troponin I High Sens 165.8 H* (<3.5-35.0) ng/L B-Natriuretic Peptide 1369 H (<100) pg/mL Total Protein 7.0 (6.5-8.0) g/dL Albumin 3.9 (3.5-5.0) g/dL Lipase 41 (8-78) U/L Urine Color Yellow Urine Appearance Turbid Urine pH >= 9.0 (5.0-9.0) Ur Specific [place] 1.010 (1.005-1.025) Urine Protein 100 (2+) H (Neg-Trace) mg/dL Urine Glucose (UA) Negative (Negative) mg/dL Urine Ketones Negative (Negative) mg/dL Urine Blood Moderate (2+) H (Negative) Urine Nitrite Positive H (Negative) Ur Leukocyte Esterase Large (3+) H (Negative) Urine RBC 3-5 H (0-2) /HPF Urine WBC 21-50 H (0-5) /HPF Ur Squamous Epith Cells 3-5 (0-2) /HPF Other Crystals Present Urine Bacteria 4+ (None Seen) Hyaline Casts 6-10 (0-2) /LPF Independent Interpretation I performed an independent interpretation of an: EKG (Normal sinus rhythm Left anterior fascicular block Moderate voltage criteria for LVH, may be normal variant ( R in aVL , [place] product ) Prolonged QT Abnormal ECG When compared with ECG of 26-FEB-2023 14:01, Criteria for Septal infarct are no longer Present) and CT Scan Radiology Impression Discussion of test interpretation with radiology: I have reviewed the radiologist's reading. External Record Review External record reviewed: Inpatient record, Office record, Outpatient record, Prior outpatient labs, Prior outpatient radiology, Primary care record and Outside ED record Chronic Conditions Patient?s care impacted by: Diabetes, Hypertension and Other (ZINA, anemia, asthma, hypertension, bipolar, bladder cancer, cancel the left renal pelvis and ureter, hypertension, hyperlipidemia, hypokalemia, obesity, metabolic encephalopathy, transitional cell carcinoma of left kidney, urostomy in place, diabetes) Critical Care Time Critical Care Time Critical Care Time: Yes Total Critical Care Time: 35 Attestation: I attest to this time spent taking care of the patient, obtaining history, physical, reviewing labs, imaging, speaking to my attending, specialist or hospitalist. Discharge Plan Discharge Clinical Impression: UTI (urinary tract infection), Rhabdomyolysis, ZINA (acute kidney injury), Sepsis Patient Disposition: Still a Patient Prescriptions: No Action (DME) Visi-Flow [employer] Misc See Rx Instructions .Route Qty: 1 5RF Rx Instructions: As directed amlodipine 5 mg tablet 5 mg PO DAILY Qty: 90 1RF sertraline 50 mg tablet 50 mg PO DAILY 30 Days Qty: 30 2RF trazodone 100 mg tablet 100 mg PO BEDTIME PRN (Reason: sleep) Qty: 30 2RF albuterol sulfate [Ventolin HFA] 90 mcg/actuation HFA aerosol inhaler 2 puff inhalation Q4H PRN (Reason: for wheezing) Qty: 18 0RF morphine 30 mg tablet extended release 30 mg PO Q12H prochlorperazine maleate 5 mg tablet 5 - 10 mg PO Q6H PRN (Reason: nausea) oxycodone 20 mg tablet 20 mg PO Q4H PRN (Reason: SEVERE PAIN) Print Language: Guamanian
[2024-01-07] MEDS: iohexoL 350 MG/ML 100 ML INFUS..BTL IV (13:35)
[2024-01-07 13:39] LABS: Glucose, Whole Blood 89 mg/dL (60-115)
[2024-01-07 13:40] LABS: Appearance Urine Turbid; Color Urine Yellow; Glucose Urine UA Negative (Negative); Leukocyte Esterase Urine Large (3+) (Negative); Nitrite Urine Positive (Negative); PH >= 9.0 (5.0-9.0); UMIC TRIGGER UACC YES; Urine Blood Moderate (2+) (Negative); Urine Ketones Negative (Negative); Urine Protein 100 (2+) mg/dL (Neg-Trace)
[2024-01-07 13:52] LABS: Basophils Absolute Auto 0.1 X10*3/uL (0.0-0.2); Basophils Percent Auto 0.2 % (0-2); Hematocrit 41.2 % (42.0-52.0); Hemoglobin 13.6 g/dl (14.0-18.0); Imm Gran Abs Auto 0.11 X10*3/uL (0.00-0.03); Imm Gran Pct Auto 0.5 % (0.0-0.4); Lymphocytes Absolute Auto 0.7 X10*3/uL (1.2-4.9); Lymphocytes Percent Auto 3.2 % (20-40); MANUAL DIFF FLAG SCAN; Mean Corpuscular Hemoglobin 29.5 pg (27.0-33.0); Mean Corpuscular Volume 89.4 fL (80.0-98.0); Mean Platelet Volume 9.8 fL (9.4-12.4); Monocytes Percent Auto 4.7 % (2-11); Neutrophils Absolute Auto 18.4 x10*3/uL (2.0-8.3); Neutrophils Percent Auto 91.4 % (45-73); Platelet Count 161 X10*3/uL (160-400); Red Blood Count 4.61 X10*6/uL (4.60-5.80); Red Cell Distribution Width 14.9 % (11.0-16.0); SCAN SMEAR FLAG 1; White Blood Count 20.1 X10*3/uL (4.8-10.8)
[2024-01-07] MEDS: cefTRIAXone sodium 1 GM in 0.9 % Sodium Chloride 50 ML IV (13:55)
[2024-01-07 13:58] LABS: INTERNATIONAL NORM RATIO 1.3 (0.9-1.1)
[2024-01-07 13:58] LABS: Bacteria Urine 4+ (None Seen); Other Crystals Urine Present; UACC Culture Trigger YES; WBC Urine 21-50 /HPF (0-5)
[2024-01-07 14:06] LABS: Lactic Acid 1.3 mmol/L (0.5-2.0)
[2024-01-07 14:10] LABS: SLIDE REVIEW VERIFIED
[2024-01-07 14:14] LABS: B Type Natriuretic Peptide 1369 pg/mL (<100)
[2024-01-07 14:15] LABS: Alanine Aminotransferase 66 U/L (0-40); Albumin Level 3.9 g/dL (3.5-5.0); Alkaline Phosphatase 192 U/L (39-117); Anion Gap 14 (12-20); Aspartate Amino Transferase 102 U/L (5-37); Bilirubin Total 1.4 mg/dL (0.0-1.0); Blood Urea Nitrogen 30 mg/dL (9-16); Calcium 9.1 mg/dL (8.4-10.2); Carbon Dioxide 23 mmol/L (22-29); Chloride 107 mmol/L (96-108); Creatinine Clr Calc Pharmacy 39.3; Estimated Glomerular Filt Rate 39; Glucose Random 96 mg/dL (60-115); Lipase 41 U/L (8-78); Magnesium 1.8 mg/dL (1.6-2.6); Potassium 4.3 mmol/L (3.3-5.1); Sodium 140 mmol/L (135-145)
[2024-01-07 14:17] LABS: Troponin-I High Sensitivity 165.8 ng/L (<3.5-35.0)
--- NOTE | 2024-01-07 14:18 | ECG_ITS ---
Test Reason : FALL Blood Pressure : / mmHG Vent. Rate : 095 BPM Atrial Rate : 095 BPM P-R Int : 180 ms QRS Dur : 106 ms QT Int : 382 ms P-R-T Axes : 040 -49 035 degrees QTc Int : 480 ms Normal sinus rhythm Left anterior fascicular block Moderate voltage criteria for LVH, may be normal variant ( R in aVL , [place] product ) Prolonged QT Abnormal ECG When compared with ECG of 26-FEB-2023 14:01, Criteria for Septal infarct are no longer Present Referred By: Manuela Fernandez Electronically Signed By:Salas Vanessa
[2024-01-07 14:34] VITALS: BP 177/95; PULSE 92; RESP 22; TEMP 38.9; O2SAT 99
[2024-01-07] MEDS: 0.9 % Sodium Chloride 1,000 ML 999 ML IV (14:59)
[2024-01-07] MEDS: Furosemide 20 MG/2 ML VIAL IVPUSH (14:59)
[2024-01-07] MEDS: Acetaminophen Supp 650 MG SUPP.RECT PR (15:00)
--- NOTE | 2024-01-07 16:34 | PHA.MEDREC ---
Pharmacy Consult ? Medication Reconciliation Pharmacy has completed the medication reconciliation. Spoke to patient son Cj to confirm med list. Cj states his father is no longer taking Gabapentin 100 mg tid, vitamin B-12 100 mcg qweek, Ferrous sulfate 325 mg 3XW, Zolpidem 10 mg at bedtime prn, and Triamcinolone acet 0.1% ointment daily prn rash. Cj says he doesn't think his father is taking Amlodipine 5 mg daily like he should.
[2024-01-07 16:44] VITALS: BP 148/81; PULSE 98; RESP 20; TEMP 36.8; O2SAT 99
--- NOTE | 2024-01-07 16:47 | PC.NURSE ---
Addendum entered by Debi Boss 01/07/24 18:56: *urostomy Original Note: New ostomy bag applied, pt repositioned onto right side. VSS, BP and temp improved. Hospitalist to bedside for consult. Awaiting bed assignment for admission.
--- NOTE | 2024-01-07 17:27 | P.HPHOSP_ITS ---
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 The patient was unable to provide any meaningful history. denies any pain at time of interveiw but was totally lost and confused. EMS reported that residets called as he was found on floor with unclear downtime. In ED he was found to have elevated CK, ZINA with evidence of Urosepsis. started on IV fluids and antibiotics and admitted for further treatment. 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 Surgical History History of urinary diversion procedure Hx of total cystectomy (~08/03/21) History of left nephrectomy (~11/29/20) History of cystoscopy History of bladder surgery Social History Household Members: None Housing: Apartment Do you presently have visiting nurse or other home services: No Unable to assess alcohol history related to: Refusing to respond Alcohol intake: current Alcohol intake frequency: does not drink Comment: pt refuses alarm Patient Tobacco Use Status: Never used Tobacco e-Cigarette/Vaping Use: Never Used Second Hand Smoke Exposure: No Advance Directives: Yes Advance Directives on File: Yes Advance Directives Date on File: 11/17/21 Do you have a plan to hurt others: No Plan service: No Current occupational status: retired and disabled Cognitive needs: No Hearing needs: No Vision needs: No Meds Allergies Allergy/AdvReac Type Severity Reaction Status Date / Time piperacillin [From ZOSYN] Allergy Intermediate REDNESS/WARMTH Verified 01/07/24 12:57 TO IV SITE. tazobactam [From ZOSYN] Allergy Intermediate REDNESS/WARMTH Verified 01/07/24 12:57 TO IV SITE. ibuprofen Allergy Unknown Unknown Verified 01/07/24 12:57 lamotrigine [Lamictal] Allergy Unknown Unknown Verified 01/07/24 12:57 Anti-Inflammatory Enzyme Allergy Unknown rash on Uncoded 07/25/23 12:00 both legs Active Medications: Current Medications Acetaminophen (Acetaminophen 325 Mg Tablet) 650 mg PO Q6H PRN PRN Reason: Pain, Mild (Pain Scale 1-3), fever or headache Albuterol Sulfate (Albuterol Sulfate 90 Mcg 8 Gm Inhaler) 2 puff INHALE Q4H PRN PRN Reason: for wheezing Amlodipine Besylate (Amlodipine Besylate 5 Mg Tablet) 5 mg PO DAILY BALA; Protocol Benzonatate (Benzonatate 100 Mg Capsule) 100 mg PO TID PRN PRN Reason: Cough Calcium Carbonate (Calcium Carbonate 750 Mg Tab.Chew) 750 mg PO Q4H PRN PRN Reason: Heartburn Heparin Sodium (Porcine) (Heparin Sodium,Porcine 5,000 Unit/Ml Vial) 5,000 unit SUBCUT Q12H [facility] Sodium Chloride (Ns) 1,000 mls @ 100 mls/hr IVCONT .Q10H BALA Ceftriaxone Sodium 1 gm/ (Sodium Chloride) 50 mls @ 100 mls/hr IV Q24H [facility] Magnesium Hydroxide (Milk Of Magnesia 30 Ml Oral.Susp) 30 ml PO DAILY PRN PRN Reason: Constipation Melatonin (Melatonin 3 Mg Tablet) 6 mg PO BEDTIME PRN PRN Reason: Insomnia Morphine Sulfate (Morphine Sulfate Er 30 Mg Tablet.Er) 30 mg PO BID [facility] Morphine Sulfate (Morphine Sulfate 4 Mg/Ml Cartridge) 2 mg IVPUSH Q4H PRN; Protocol PRN Reason: Pain, Severe (Pain Scale 7-10) Ondansetron HCl (Ondansetron Hcl 4 Mg/2 Ml Vial) 4 mg IVPUSH Q8H PRN PRN Reason: Nausea and Vomiting Oxycodone HCl (Oxycodone Hcl Immed Release 5 Mg Tablet) 10 mg PO Q4H PRN PRN Reason: SEVERE PAIN Sertraline HCl (Sertraline Hcl 50 Mg Tablet) 50 mg PO DAILY BALA Sodium Chloride (0.9 % Sodium Chloride Flush 3 Ml Syringe) 3 ml IVFLUSH QSHIFT [facility] Home Medications ?Medication ?Instructions ?Recorded ?Confirmed ?Last Taken ?Type oxycodone 20 mg tablet 20 mg PO Q4H PRN SEVERE PAIN 02/26/23 01/07/24 Unknown History morphine 30 mg tablet,extended 30 mg PO Q12H 01/07/24 01/07/24 Unknown History release prochlorperazine maleate 5 mg 5 - 10 mg PO Q6H PRN nausea 01/07/24 01/07/24 Unknown History tablet Physical Exam 2 Vital Signs and Narrative: Vital Signs: Last Vital Signs Temp 98.2 F 01/07/24 16:44 Pulse 98 01/07/24 16:44 Resp 20 01/07/24 16:44 BP 148/81 H 01/07/24 16:44 Pulse Ox 99 01/07/24 16:44 O2 Del Method Room Air 01/07/24 16:44 BMI result Body Mass Index 27.4 Const: Other: Constitutional : alert with stimulation but frail and weak, not in distress Cardiovascular : no JVP, no lower extremity edema Respiratory : bilateral chest movement, not in resp distress Gastrointestinal: soft, lax, Non tender Skin : Warm, Dry Neurological : Alert & disoreiented, moving extremities , No focal deficit Results Labs 01/07/24 13:44 01/07/24 13:44 Labs: Laboratory Results - last 24 hr 01/07/24 01/07/24 01/07/24 13:34 13:36 13:44 MCV 89.4 MCH 29.5 MCHC 33.0 RDW 14.9 Plt Count 161 MPV 9.8 Immature Gran % (Auto) 0.5 H Neut % (Auto) 91.4 H Lymph % (Auto) 3.2 L [place] % (Auto) 4.7 Eos % (Auto) 0.0 Baso % (Auto) 0.2 Lymph # (Auto) 0.7 L [place] # (Auto) 1.0 Eos # (Auto) 0.0 Baso # (Auto) 0.1 Abs Immat Gran (auto) 0.11 H Absolute Neuts (auto) 18.4 H Absolute Nucleated RBC 0.000 Nucleated RBC % (auto) 0.0 Smear Tech's Comments VERIFIED PT 16.0 H INR 1.3 H Anion Gap 14 Estim Creat Clear Calc 39.3 Estimated GFR 39 POC Glucose 89 Random Glucose 96 Lactic Acid 1.3 Calcium 9.1 Magnesium 1.8 Total Bilirubin 1.4 H AST 102 H ALT 66 H Alkaline Phosphatase 192 H Total Creatine Kinase 4793 H Troponin I High Sens 165.8 H* B-Natriuretic Peptide 1369 H Total Protein 7.0 Albumin 3.9 Lipase 41 Urine Color Yellow Urine Appearance Turbid Urine pH >= 9.0 Ur Specific [place] 1.010 Urine Protein 100 (2+) H Urine Glucose (UA) Negative Urine Ketones Negative Urine Blood Moderate (2+) H Urine Nitrite Positive H Ur Leukocyte Esterase Large (3+) H Urine RBC 3-5 H Urine WBC 21-50 H Ur Squamous Epith Cells 3-5 Other Crystals Present Urine Bacteria 4+ Hyaline Casts 6-10 Imaging Radiologist's Impressions: Impressions Cervical Spine CT 01/07/24 14:04 IMPRESSION: 1. No acute intracranial hemorrhage or territorial infarction. Moderate diffuse brain parenchymal volume loss and chronic lacunar infarcts in the deep staples matter structures. 2. No evidence of acute cervical spine traumatic injury. Moderate cervical spondylosis with moderate to severe multilevel central canal stenosis and foraminal narrowing. Head CT 01/07/24 14:04 IMPRESSION: 1. No acute intracranial hemorrhage or territorial infarction. Moderate diffuse brain parenchymal volume loss and chronic lacunar infarcts in the deep staples matter structures. 2. No evidence of acute cervical spine traumatic injury. Moderate cervical spondylosis with moderate to severe multilevel central canal stenosis and foraminal narrowing. Abdomen/Pelvis CT 01/07/24 14:10 IMPRESSION: 1. No evidence of an acute traumatic injury in the abdomen or pelvis. 2. There is mild right-sided hydronephrosis and perinephric stranding but an obvious injury is not seen. 3. Incidental note made of enlarged fatty liver, splenomegaly, left nephrectomy, cystectomy with ileal loop and right lower quadrant urostomy, colonic diverticulosis and degenerative changes in the spine. Fleischner guidelines were followed. Chest CT 01/07/24 14:10 IMPRESSION: 1. No evidence of a traumatic injury in the chest. 2. Incidental note made of right basilar atelectasis, mild splenomegaly and marked perinephric stranding around the right kidney with mild hydronephrosis. The patient will be undergoing a CT scan of the abdomen and pelvis which will further evaluate this. Fleischner guidelines were followed. 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 ZINA on CKD3 2/2 acute Rhabdomyolysis follow Cr avoid nephrotoxins IVF I\O Fall PT evaluation acute Toxic metabolic encephalopathy 2/2 sepsis from UTI normal LA Pending cultures IV Ceftriaxone recurrent reorientation Transaminitis, 2/2 Rhabdo Elevated Trop likely 2/2 Rhabdo No EKG changes to suggest ACS, patient did not report chest pain, trend Trop Elevated BNP no evidence of fluid overload, likely 2/2 ZINA monitor clinically DVT PPx Heparin The patient will likely need 2 overnight hospital stay for antibiotics pending cultures, IVF for kidney injury Quality Stroke Does the patient have a stroke diagnosis?: No VTE Prior VTE?: No VTE Risk Level:: Medical - moderate - high VTE Device Contraindication: Treatment Not Indicated VTE Drug Contraindication: N/A - Med Ordered
[2024-01-07 18:08] VITALS: BP 128/87; PULSE 97; RESP 18; TEMP 36.7; O2SAT 93
--- NOTE | 2024-01-07 18:25 | PC.NURSE ---
Pt answering questions now- states he does not recall events leading to hospitalization today. Continues to have difficulty following directions- failed swallow eval-referrred for speech consult, hospitalist notified. 400ml clear yellow urine with sediment drained from urostomy bag. VSS. Generalized weakness persists during neuro exam, no neuro deficits noted. Repositioned pt to left side but pt put self back onto back.
--- NOTE | 2024-01-07 18:56 | PC.NURSE ---
Report given to Poonam OCASIO pt exits my care at this time.
[2024-01-07] MEDS: 0.9 % Sodium Chloride 1,000 ML 100 ML IVCONT (19:07)
[2024-01-07 19:31] LABS: Troponin-I High Sensitivity 182.6 ng/L (<3.5-35.0)
--- NOTE | 2024-01-07 20:11 | PC.NURSE ---
came from independent living with AMS. Someone called for well being check and EMS pt noted pt to be lying on floor, altered , covered in feces. Unknown downtime. Pt poor historian. 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 Pt has urostomy bag ( changed in ED). ct WNL. Pt not on thinners. Pt is unable / refuses (?) to answer questions . Neuros appear intact at this time. CPK evelvated ( admit for rhaybdo) . TTrop 165 ( Rhabdo?), BNP 1300- treated with lasix. Pt also has UTI and is given antibiotics. Pt failed swallow eval and NPO at this time until speech consult
[2024-01-07] MEDS: Heparin Sodium,Porcine 5,000 UNIT/ML VIAL 5000 UNIT SUBCUT (20:49)
[2024-01-07 22:50] VITALS: BP 145/77; PULSE 95; RESP 18; TEMP 36.8; O2SAT 95
[2024-01-08] VITALS (8 sets, daily range): BP systolic 145–183; BP diastolic 76–88; PULSE 73–100; RESP 16–20; TEMP 36.8–36.9; O2SAT 93–95; BMI 25.8
[2024-01-08] MEDS: 0.9 % Sodium Chloride Flush 3 ML SYRINGE IVFLUSH ×2 (00:53→15:58)
--- NOTE | 2024-01-08 03:49 | PC.NURSE ---
Pt's BP is 100/[address] Gibbons aware.
[2024-01-08] MEDS: Morphine Sulfate 4 MG/ML CARTRIDGE 2 MG IVPUSH (04:20)
[2024-01-08 06:38] LABS: MANUAL DIFF FLAG NO
[2024-01-08 06:44] LABS: Basophils Percent Auto 0.2 % (0-2); Eosinophils Percent Auto 0.1 % (0-4); Hematocrit 38.8 % (42.0-52.0); Imm Gran Abs Auto 0.15 X10*3/uL (0.00-0.03); Imm Gran Pct Auto 0.9 % (0.0-0.4); Lymphocytes Absolute Auto 0.7 X10*3/uL (1.2-4.9); Lymphocytes Percent Auto 4.1 % (20-40); Mean Corpuscular HGB Conc 33.5 g/dl (31.0-36.0); Mean Corpuscular Hemoglobin 29.5 pg (27.0-33.0); Mean Corpuscular Volume 88.2 fL (80.0-98.0); Mean Platelet Volume 10.9 fL (9.4-12.4); Monocytes Absolute Auto 0.8 X10*3/uL (0.1-1.2); Monocytes Percent Auto 4.7 % (2-11); Neutrophils Absolute Auto 15.7 x10*3/uL (2.0-8.3); Platelet Count 165 X10*3/uL (160-400); White Blood Count 17.4 X10*3/uL (4.8-10.8)
[2024-01-08 07:00] LABS: Alanine Aminotransferase 48 U/L (0-40); Albumin Level 3.7 g/dL (3.5-5.0); Alkaline Phosphatase 161 U/L (39-117); Anion Gap 14 (12-20); Aspartate Amino Transferase 71 U/L (5-37); Bilirubin Total 1.2 mg/dL (0.0-1.0); Blood Urea Nitrogen 38 mg/dL (9-16); Calcium 9.2 mg/dL (8.4-10.2); Carbon Dioxide 23 mmol/L (22-29); Chloride 109 mmol/L (96-108); Creatinine Clr Calc Pharmacy 36.4; Estimated Glomerular Filt Rate 35; Glucose Random 105 mg/dL (60-115); Sodium 142 mmol/L (135-145); Total Protein 6.8 g/dL (6.5-8.0)
[2024-01-08] MEDS: 0.9 % Sodium Chloride 1,000 ML 100 ML IVCONT ×2 (07:15→17:19)
[2024-01-08] MEDS: amLODIPine Besylate 5 MG TABLET PO (07:16)
[2024-01-08] MEDS: Heparin Sodium,Porcine 5,000 UNIT/ML VIAL 5000 UNIT SUBCUT ×2 (07:16→21:20)
[2024-01-08] MEDS: oxyCODONE HCl Immed Release 5 MG TABLET PO (07:16)
[2024-01-08] MEDS: Sertraline HCL 50 MG TABLET PO (07:16)
[2024-01-08] MEDS: Morphine Sulfate ER 30 MG TABLET.ER PO ×2 (07:51→19:13)
[2024-01-08] MEDS: oxyCODONE HCl Immed Release 5 MG TABLET 10 MG PO ×3 (07:52→22:12)
--- NOTE | 2024-01-08 09:33 | MHC.SL.SWA ---
Speech Pathologist Impression: Risk of aspiration, oral phase dysphagia Risk of Aspiration Due to: Confusion Dysphasia Diet Status: UPGRADE from NPO, start on NDD1/THIN Liquid Consistency and Strategies for Safe Swallow: Liquid Intake Recommendation: Thin Liquid Intake Strategies: Small Sips Solid Food Consistency: Dietary Recommendations: Pureed (NDD1) Additional Modifications to Solid Foods: Recommend START on PUREED (NDD1) diet and THIN liquids. Per RN, patient tolerated pills WHOLE in LIQUID this morning. At this time, patient requires total 1:1 assistance, with encouragement for patient to feed himself when possible. Standard aspiration precautions apply. Plan for PRODUCE SORTER to re-evaluate tomorrow morning for potential upgrade. Oral Medication Intake: Whole with Liquid Please contact the pharmacy regarding appropriate crushable or liquid drug formulations that are available whenever modified delivery is recommended. Compensatory Strategies and Precautions to be Taken for Safe Swallow: Sitting Upright (90 deg) Small Bites and Sips Rate of Ingestion Change Supervision While Eating and Drinking for Safe Swallow: Total Assistance (1:1) Swallowing Recommended Treatments: Compens. Strategy Educat. Recommendation for Speech: Inpatient Speech Therapy Comment: PRODUCE SORTER to monitor tolerance and re-assess for potential upgrade Frequency/Duration: M-F PRN Date Range for Service Req: Timeline to reassess: Plumbing Warehouse Helper Clinican/Clinical Fellow: No Supervisory Statement: I have reviewed and agree with the student/clinical fellow's documentation: N/A Speech Language Pathologist: Abril Vo M.A., CCC-PRODUCE SORTER
--- NOTE | 2024-01-08 11:08 | MHC.CM.PN ---
PT UNABLE TO PROVIDE RELIABLE HISTORY, CM CALLED HIS SON/HCP, JESUS [phone] JESUS REPORTS THE PT LIVES IN [facility]REG[facility] HOUSING HE IS ACTIVE WITH MOW AND DID HAVE A RN COMING, BUT HE IS UNSURE IF THAT IS STILL ACTIVE OR WHAT AGENCY PT USES A CANE AT BASELINE HCP ON FILE PCP: DONNA BUSTOS IMM DELIVERED DCP: HOME RESUME MOW ? VNA VS STR PT WAS WITH BLADIMIR BENOIT DURING HIS LAST ADMISSION, REFERRAL SENT TRANSPORT TBD BY DISPO: SHUTTLE VS BLS
--- NOTE | 2024-01-08 12:02 | HO.PM.IMPN ---
Subjective Subjective Date of Service: 01/08/24 Interval History: seen and evaluated this morning looks lethargic and confused more alert than admission time Blood culture growing GNR Cr mildly worse Review of Systems Review of Systems: Yes all other systems are reviewed and are negative Physical Exam Vital Signs: Vital Signs: Last Vital Signs Temp 98.5 F 01/08/24 07:20 Pulse 95 01/08/24 07:20 Resp 16 01/08/24 07:20 BP 164/88 H 01/08/24 09:06 Pulse Ox 94 01/08/24 07:20 O2 Del Method Room Air 01/08/24 07:20 BMI result Body Mass Index 25.8 Const: Other: Constitutional : alert but frail and weak, not in distress Cardiovascular : no JVP, no lower extremity edema Respiratory : bilateral chest movement, not in resp distress Gastrointestinal: soft, lax, Non tender Skin : Warm, Dry Neurological : Alert & disoreiented, moving extremities , No focal deficit Objective Data Active Medications Acetaminophen (Acetaminophen 325 Mg Tablet) 650 mg PO Q6H PRN PRN Reason: Pain, Mild (Pain Scale 1-3), fever or headache Albuterol Sulfate (Albuterol Sulfate 90 Mcg 8 Gm Inhaler) 2 puff INHALE Q4H PRN PRN Reason: for wheezing Amlodipine Besylate (Amlodipine Besylate 5 Mg Tablet) 5 mg PO DAILY [facility]; Protocol Last Admin: 01/08/24 07:16 Dose: 5 mg Documented By: DARCI Benzonatate (Benzonatate 100 Mg Capsule) 100 mg PO TID PRN PRN Reason: Cough Calcium Carbonate (Calcium Carbonate 750 Mg Tab.Chew) 750 mg PO Q4H PRN PRN Reason: Heartburn Heparin Sodium (Porcine) (Heparin Sodium,Porcine 5,000 Unit/Ml Vial) 5,000 unit SUBCUT Q12H [facility] Last Admin: 01/08/24 07:16 Dose: 5,000 unit Documented By: DARCI Sodium Chloride (Ns) 1,000 mls @ 100 mls/hr IVCONT .Q10H [facility] Last Admin: 01/08/24 07:15 Dose: 100 mls/hr Documented By: DARCI Ceftriaxone Sodium 1 gm/ (Sodium Chloride) 50 mls @ 100 mls/hr IV Q24H [facility] Magnesium Hydroxide (Milk Of Magnesia 30 Ml Oral.Susp) 30 ml PO DAILY PRN PRN Reason: Constipation Melatonin (Melatonin 3 Mg Tablet) 6 mg PO BEDTIME PRN PRN Reason: Insomnia Morphine Sulfate (Morphine Sulfate 4 Mg/Ml Cartridge) 2 mg IVPUSH Q4H PRN; Protocol PRN Reason: Pain, Severe (Pain Scale 7-10) Last Admin: 01/08/24 04:20 Dose: 2 mg Documented By: BALDEMAR Morphine Sulfate (Morphine Sulfate Er 30 Mg Tablet.Er) 30 mg PO Q12H [facility] Last Admin: 01/08/24 07:51 Dose: 30 mg Documented By: DARCI Ondansetron HCl (Ondansetron Hcl 4 Mg/2 Ml Vial) 4 mg IVPUSH Q8H PRN PRN Reason: Nausea and Vomiting Oxycodone HCl (Oxycodone Hcl Immed Release 5 Mg Tablet) 10 mg PO Q4H PRN PRN Reason: Pain, Severe (Pain Scale 7-10) Last Admin: 01/08/24 07:52 Dose: 10 mg Documented By: DARCI Sertraline HCl (Sertraline Hcl 50 Mg Tablet) 50 mg PO DAILY [facility] Last Admin: 01/08/24 07:16 Dose: 50 mg Documented By: DARCI Sodium Chloride (0.9 % Sodium Chloride Flush 3 Ml Syringe) 3 ml IVFLUSH QSHIFT [facility] Last Admin: 01/08/24 07:13 Dose: Not Given Documented By: DARCI Non-Admin Reason: IV Running Labs 01/08/24 05:24 01/08/24 05:24 Labs: Laboratory Results - last 24 hr 01/07/24 01/07/24 01/07/24 13:34 13:36 13:44 MCV 89.4 MCH 29.5 MCHC 33.0 RDW 14.9 Plt Count 161 MPV 9.8 Immature Gran % (Auto) 0.5 H Neut % (Auto) 91.4 H Lymph % (Auto) 3.2 L Mcnairy % (Auto) 4.7 Eos % (Auto) 0.0 Baso % (Auto) 0.2 Lymph # (Auto) 0.7 L Mcnairy # (Auto) 1.0 Eos # (Auto) 0.0 Baso # (Auto) 0.1 Abs Immat Gran (auto) 0.11 H Absolute Neuts (auto) 18.4 H Absolute Nucleated RBC 0.000 Nucleated RBC % (auto) 0.0 Smear Tech's Comments VERIFIED PT 16.0 H INR 1.3 H Anion Gap 14 Estim Creat Clear Calc 39.3 Estimated GFR 39 POC Glucose 89 Random Glucose 96 Lactic Acid 1.3 Calcium 9.1 Magnesium 1.8 Total Bilirubin 1.4 H AST 102 H ALT 66 H Alkaline Phosphatase 192 H Total Creatine Kinase 4793 H Troponin I High Sens 165.8 H* B-Natriuretic Peptide 1369 H Total Protein 7.0 Albumin 3.9 Lipase 41 Urine Color Yellow Urine Appearance Turbid Urine pH >= 9.0 Ur Specific Richardson 1.010 Urine Protein 100 (2+) H Urine Glucose (UA) Negative Urine Ketones Negative Urine Blood Moderate (2+) H Urine Nitrite Positive H Ur Leukocyte Esterase Large (3+) H Urine RBC 3-5 H Urine WBC 21-50 H Ur Squamous Epith Cells 3-5 Other Crystals Present Urine Bacteria 4+ Hyaline Casts 6-10 01/07/24 01/08/24 18:55 05:24 MCV 88.2 MCH 29.5 MCHC 33.5 RDW 15.0 Plt Count 165 MPV 10.9 Immature Gran % (Auto) 0.9 H Neut % (Auto) 90.0 H Lymph % (Auto) 4.1 L Mcnairy % (Auto) 4.7 Eos % (Auto) 0.1 Baso % (Auto) 0.2 Lymph # (Auto) 0.7 L Mcnairy # (Auto) 0.8 Eos # (Auto) 0.0 Baso # (Auto) 0.0 Abs Immat Gran (auto) 0.15 H Absolute Neuts (auto) 15.7 H Absolute Nucleated RBC 0.000 Nucleated RBC % (auto) 0.0 Smear Tech's Comments PT INR Anion Gap 14 Estim Creat Clear Calc 36.4 Estimated GFR 35 POC Glucose Random Glucose 105 Lactic Acid Calcium 9.2 Magnesium Total Bilirubin 1.2 H AST 71 H ALT 48 H Alkaline Phosphatase 161 H Total Creatine Kinase 2985 H Troponin I High Sens 182.6 H* B-Natriuretic Peptide Total Protein 6.8 Albumin 3.7 Lipase Urine Color Urine Appearance Urine pH Ur Specific Richardson Urine Protein Urine Glucose (UA) Urine Ketones Urine Blood Urine Nitrite Ur Leukocyte Esterase Urine RBC Urine WBC Ur Squamous Epith Cells Other Crystals Urine Bacteria Hyaline Casts Microbiology Microbiology Results: Microbiology 01/07/24 13:44 Blood Culture - Preliminary Blood - Venous Prelim: GNR Gram Stain only Assessment and Plan (1) Sepsis: Status: Acute (2) ZINA (acute kidney injury): Status: Acute (3) Rhabdomyolysis: Status: Acute (4) UTI (urinary tract infection): Status: Acute Plan A 73 years old male with PMH of asthma, Bladder CA, Metastatic CA to pelvis on Narcotic, HLD, TCC Lt kidney, Urostomy in place among others who presents from independent living with fall and altered mentation. ZINA on CKD3 2/2 acute Rhabdomyolysis follow Cr, worse at 1.9 avoid nephrotoxins continue IVF I\O nephrology consult Fall PT evaluation acute Toxic metabolic encephalopathy 2/2 sepsis from UTI normal LA Pending cultures Continue IV Ceftriaxone recurrent reorientation Transaminitis, 2/2 Rhabdo Elevated Trop likely 2/2 Rhabdo No EKG changes to suggest ACS, patient did not report chest pain, trend Trop Elevated BNP no evidence of fluid overload, likely 2/2 ZINA monitor clinically DVT PPx Heparin The patient will likely need 2 overnight hospital stay for antibiotics pending cultures, IVF for kidney injury Quality Stroke Does the patient have a stroke diagnosis?: No VTE Prior VTE?: No VTE Risk Level:: Medical - moderate - high VTE Device Contraindication: Treatment Not Indicated VTE Drug Contraindication: N/A - Med Ordered
[2024-01-08] MEDS: cefTRIAXone sodium 1 GM in 0.9 % Sodium Chloride 50 ML IV (12:16)
[2024-01-08] MEDS: hydrALAZINE HCl 25 MG TABLET PO ×2 (15:57→21:20)
--- NOTE | 2024-01-08 18:44 | P.CDIM_ITS ---
PROVIDER RESPONSE TEXT: To clarify, the appropriate diagnosis supported by the clinical indicators: Rhabdomyolysis: traumatic ; fall QUERY TEXT: PHYSICIAN'S DOCUMENTATION REQUEST Date of Query: 01/08/2024 08:49 AM EDT Patient Name: Mateus Nation Admit Date: 01/07/2024 Dear Alex Marte, A review of the medical record indicates additional documentation may be needed. Please review below and update the documentation accordingly. Clinical Indicators: Ed: Fall to the ground for days, closed head, will rule out Traumatic head injury, lying at home alte red [place]. [place] 4793 H IV fluids Based on the above, could you clarify any specificity to the documented Rhabdomyolysis: Rhabdomyolysis Traumatic, non-traumatic etc. Other (explain) Clinically unable to determine (explain) Thank you, Taina Short, CCS, CDIS Use of terms such as suspected, likely, concern for, or probable (associated with a specific diagnosi s that is being evaluated, monitored, or treated as if it exists) are acceptable and can be coded in the inpatient se tting, when documented at the time of discharge. Please use your independent medical judgment in providing your response. THIS QUERY IS PART OF THE PERMANENT MEDICAL RECORD
[2024-01-09] VITALS (7 sets, daily range): BP systolic 160–187; BP diastolic 60–89; PULSE 68–79; RESP 13–18; TEMP 36.7–37.2; O2SAT 92–95
[2024-01-09] MEDS: 0.9 % Sodium Chloride 1,000 ML 100 ML IVCONT ×4 (02:26→23:17)
[2024-01-09] MEDS: Morphine Sulfate 4 MG/ML CARTRIDGE 2 MG IVPUSH (05:05)
[2024-01-09 05:55] LABS: PLT CLUMP 1; Red Cell Distribution Width 15.2 % (11.0-16.0)
[2024-01-09 05:57] LABS: Hematocrit 35.4 % (42.0-52.0); Hemoglobin 11.8 g/dl (14.0-18.0); Mean Corpuscular HGB Conc 33.3 g/dl (31.0-36.0); Mean Corpuscular Hemoglobin 29.4 pg (27.0-33.0); Mean Corpuscular Volume 88.3 fL (80.0-98.0); Mean Platelet Volume 10.4 fL (9.4-12.4); Red Blood Count 4.01 X10*6/uL (4.60-5.80)
[2024-01-09 06:06] LABS: Platelet Count 139 X10*3/uL (160-400); White Blood Count 10.3 X10*3/uL (4.8-10.8)
[2024-01-09 06:09] LABS: Anion Gap 13 (12-20); Blood Urea Nitrogen 37 mg/dL (9-16); Calcium 8.9 mg/dL (8.4-10.2); Carbon Dioxide 20 mmol/L (22-29); Chloride 112 mmol/L (96-108); Creatinine Clr Calc Pharmacy 42.8; Estimated Glomerular Filt Rate 42; Glucose Random 129 mg/dL (60-115); Sodium 141 mmol/L (135-145)
[2024-01-09] MEDS: oxyCODONE HCl Immed Release 5 MG TABLET 10 MG PO ×2 (06:26→21:53)
[2024-01-09] MEDS: Heparin Sodium,Porcine 5,000 UNIT/ML VIAL 5000 UNIT SUBCUT ×2 (08:33→20:03)
[2024-01-09] MEDS: Sertraline HCL 50 MG TABLET PO (08:34)
[2024-01-09] MEDS: amLODIPine Besylate 5 MG TABLET PO (08:34)
[2024-01-09] MEDS: Morphine Sulfate ER 30 MG TABLET.ER PO ×2 (08:34→20:01)
[2024-01-09] MEDS: hydrALAZINE HCl 25 MG TABLET PO ×3 (08:34→20:02)
[2024-01-09 08:51] LABS: Alanine Aminotransferase 33 U/L (0-40); Albumin Level 3.4 g/dL (3.5-5.0); Alkaline Phosphatase 113 U/L (39-117); Aspartate Amino Transferase 32 U/L (5-37); Bilirubin Direct 0.3 mg/dL (0.0-0.5); Bilirubin Total 0.6 mg/dL (0.0-1.0); Total Protein 6.4 g/dL (6.5-8.0)
[2024-01-09] MEDS: Albuterol Sulfate 90 MCG 8 GM INHALER 2 PUFF INHALE ×3 (10:25→21:39)
[2024-01-09] MEDS: cefTRIAXone sodium 1 GM in 0.9 % Sodium Chloride 50 ML IV (12:40)
--- NOTE | 2024-01-09 13:16 | MHC.SL.SWA ---
Speech Pathologist Impression: Risk of Aspiration Due to: Dysphasia Diet Status: Recommend UPGRADE diet to Regular, continue with thin liquids, pills whole with liquid. Patient is able to eat independently, but should be encouraged to alternate sips of liquid with bites of solid. Liquid Consistency and Strategies for Safe Swallow: Liquid Intake Recommendation: Thin Liquid Intake Strategies: Small Sips Solid Food Consistency: Dietary Recommendations: Regular Additional Modifications to Solid Foods: Oral Medication Intake: Whole with Liquid Please contact the pharmacy regarding appropriate crushable or liquid drug formulations that are available whenever modified delivery is recommended. Compensatory Strategies and Precautions to be Taken for Safe Swallow: Sitting Upright (90 deg) Liquids from Cup Liquids from Straw Small Bites and Sips Alternate Liquids/Solids Supervision While Eating and Drinking for Safe Swallow: None Needed Foods to Avoid: Swallowing Recommended Treatments: Compens. Strategy Educat. Recommendation for Speech: Inpatient Speech Therapy Comment: Patient seen for repeat assessment of swallow at lunch today. Patient seen yesterday in ED, was reportedly uncooperative with the assessment which was limited due to his behaviors, with patient placed conservatively on Pureed Diet with thin liquids. At lunch to day, patient expressing irritation and annoyance at mush he was receiving, SHANK ARCHER promptly offered to re-assess to advance his diet. Patient was initially offered bite of chicken salad from floor stock, with patient grimacing and spitting it out immediately, again complaining mostly about the texture. Family members present then encouraged him to cooperate with other trials of foods, re-iterating that it was to advance his diet to more preferred foods. Patient then accepted bite of softened cracker in puree, producing a normal rotary chew and timely swallow. On harder cracker dipped in puree, patient had mildly more prolonged period of mastication, and mild oral residue noted after swallow, cleared by sip of liquid. Patient then reluctantly accepted bite of a saltine, chewing this consistency somewhat slowly, however may have been due to distaste, and had mild oral residual after swallow cleared by sip of liquid. Recommend UPGRADE diet to Regular, continue with thin liquids, pills whole with liquid. Patient is able to eat independently, but should be encouraged to alternate sips of liquid with bites of solid. SHANK ARCHER adjusted diet in [facility], notified RN of recommendation in person, , RD by secure text. SHANK ARCHER to f/u X1 for toleration. Frequency/Duration: M-F PRN Date Range for Service Req: Timeline to reassess: Corn Breeder Clinican/Clinical Fellow: No Supervisory Statement: I have reviewed and agree with the student/clinical fellow's documentation: N/A Speech Language Pathologist: Abril Vo M.A., CCC-SHANK ARCHER
--- NOTE | 2024-01-09 13:35 | MHC.CM.PN ---
Per MD rounds patient's mental status improving. Able to participate in PT. STR is the recommendation. Patient is agreeable and does not have a facility preference. Referrals sent to local facilities via [facility]. CM will continue to follow.
--- NOTE | 2024-01-09 13:45 | P.PNIM_ITS ---
Subjective Subjective Date of Service: 01/09/24 Interval History: seen and evaluated this morning more alert and interactive Blood culture growing GNR Cr improved Review of Systems Review of Systems: Yes all other systems are reviewed and are negative Physical Exam 2 Vital Signs: Vital Signs: Last Vital Signs Temp 98.8 F 01/09/24 08:00 Pulse 70 01/09/24 13:17 Resp 13 01/09/24 08:00 BP 187/89 H 01/09/24 08:00 Pulse Ox 94 01/09/24 13:17 O2 Del Method Room Air 01/09/24 08:00 BMI result Body Mass Index 25.8 Const: Other: Constitutional : alert but frail and weak, not in distress Cardiovascular : no JVP, no lower extremity edema Respiratory : bilateral chest movement, not in resp distress Gastrointestinal: soft, lax, Non tender Skin : Warm, Dry Neurological : Alert & oriented to self and place, moving extremities , No focal deficit Objective Data Active Medications Acetaminophen (Acetaminophen 325 Mg Tablet) 650 mg PO Q6H PRN PRN Reason: Pain, Mild (Pain Scale 1-3), fever or headache Albuterol Sulfate (Albuterol Sulfate 90 Mcg 8 Gm Inhaler) 2 puff INHALE Q4H PRN PRN Reason: for wheezing Last Admin: 01/09/24 10:25 Dose: 2 puff Documented By: JAMAICA Amlodipine Besylate (Amlodipine Besylate 5 Mg Tablet) 5 mg PO DAILY [facility]; Protocol Last Admin: 01/09/24 08:34 Dose: 5 mg Documented By: JAMAICA Benzonatate (Benzonatate 100 Mg Capsule) 100 mg PO TID PRN PRN Reason: Cough Calcium Carbonate (Calcium Carbonate 750 Mg Tab.Chew) 750 mg PO Q4H PRN PRN Reason: Heartburn Heparin Sodium (Porcine) (Heparin Sodium,Porcine 5,000 Unit/Ml Vial) 5,000 unit SUBCUT Q12H [facility] Last Admin: 01/09/24 08:33 Dose: 5,000 unit Documented By: JAMAICA Hydralazine HCl (Hydralazine Hcl 25 Mg Tablet) 25 mg PO TID [facility]; Protocol Last Admin: 01/09/24 08:34 Dose: 25 mg Documented By: JAMAICA Sodium Chloride (Ns) 1,000 mls @ 100 mls/hr IVCONT .Q10H [facility] Last Admin: 01/09/24 10:26 Dose: 100 mls/hr Documented By: JAMAICA Ceftriaxone Sodium 1 gm/ (Sodium Chloride) 50 mls @ 100 mls/hr IV Q24H [facility] Last Admin: 01/09/24 12:40 Dose: 100 mls/hr Documented By: MARISA Magnesium Hydroxide (Milk Of Magnesia 30 Ml Oral.Susp) 30 ml PO DAILY PRN PRN Reason: Constipation Melatonin (Melatonin 3 Mg Tablet) 6 mg PO BEDTIME PRN PRN Reason: Insomnia Morphine Sulfate (Morphine Sulfate 4 Mg/Ml Cartridge) 2 mg IVPUSH Q4H PRN; Protocol PRN Reason: Pain, Severe (Pain Scale 7-10) Last Admin: 01/09/24 05:05 Dose: 2 mg Documented By: SANDRA Morphine Sulfate (Morphine Sulfate Er 30 Mg Tablet.Er) 30 mg PO Q12H [facility] Last Admin: 01/09/24 08:34 Dose: 30 mg Documented By: JAMAICA Ondansetron HCl (Ondansetron Hcl 4 Mg/2 Ml Vial) 4 mg IVPUSH Q8H PRN PRN Reason: Nausea and Vomiting Oxycodone HCl (Oxycodone Hcl Immed Release 5 Mg Tablet) 10 mg PO Q4H PRN PRN Reason: Pain, Severe (Pain Scale 7-10) Last Admin: 01/09/24 06:26 Dose: 10 mg Documented By: SANDRA Sertraline HCl (Sertraline Hcl 50 Mg Tablet) 50 mg PO DAILY [facility] Last Admin: 01/09/24 08:34 Dose: 50 mg Documented By: JAMAICA Sodium Chloride (0.9 % Sodium Chloride Flush 3 Ml Syringe) 3 ml IVFLUSH QSHIFT [facility] Last Admin: 01/09/24 08:36 Dose: Not Given Documented By: JAMAICA Non-Admin Reason: IV Running Labs 01/09/24 05:33 01/09/24 05:33 Labs: Laboratory Results - last 24 hr 01/09/24 05:33 MCV 88.3 MCH 29.4 MCHC 33.3 RDW 15.2 Plt Count 139 L MPV 10.4 Absolute Nucleated RBC 0.000 Nucleated RBC % (auto) 0.0 Anion Gap 13 Estim Creat Clear Calc 42.8 Estimated GFR 42 Random Glucose 129 H Calcium 8.9 Total Bilirubin 0.6 Direct Bilirubin 0.3 AST 32 ALT 33 Alkaline Phosphatase 113 Total Creatine Kinase 714 H Total Protein 6.4 L Albumin 3.4 L Microbiology Microbiology Results: Microbiology 01/07/24 13:44 Blood Culture - Preliminary Blood - Venous Gram negative lefty 01/07/24 13:56 Blood Culture - Preliminary Blood - Venous No growth after 24 hours. 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 ZINA on CKD3 2/2 acute Rhabdomyolysis CK trended to 700s Cr improved to 1.6 avoid nephrotoxins continue IVF today I\O nephrology consult Fall PT evaluation acute Toxic metabolic encephalopathy 2/2 sepsis from UTI with GNR bacteremia normal LA Pending cultures Continue IV Ceftriaxone recurrent reorientation Transaminitis, 2/2 Rhabdo Elevated Trop likely 2/2 Rhabdo No EKG changes to suggest ACS, patient did not report chest pain, trend Trop Elevated BNP no evidence of fluid overload, likely 2/2 ZINA monitor clinically DVT PPx Heparin The patient will likely need overnight hospital stay for antibiotics pending cultures, IVF for kidney injury Quality Stroke Does the patient have a stroke diagnosis?: No VTE Prior VTE?: No VTE Risk Level:: Medical - moderate - high VTE Device Contraindication: Treatment Not Indicated VTE Drug Contraindication: N/A - Med Ordered
--- NOTE | 2024-01-09 17:49 | P.CONNP_ITS ---
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 The patient was confused on admit , he was found on floor with unclear downtime. Found to have ZINA. 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 Surgical History Surgical History History of urinary diversion procedure Hx of total cystectomy (~08/03/21) History of left nephrectomy (~11/29/20) History of cystoscopy History of bladder surgery Social History Social History Household Members: None Housing: Apartment Do you presently have visiting nurse or other home services: No Unable to assess alcohol history related to: Refusing to respond Alcohol intake: current Alcohol intake frequency: does not drink Comment: pt refuses alarm Patient Tobacco Use Status: Never used Tobacco e-Cigarette/Vaping Use: Never Used Second Hand Smoke Exposure: No Advance Directives Date on File: 11/17/21 service: No Current occupational status: retired and disabled Cognitive needs: No Hearing needs: No Vision needs: No Meds Allergies Allergy/AdvReac Type Severity Reaction Status Date / Time piperacillin [From ZOSYN] Allergy Intermediate REDNESS/WARMTH Verified 01/07/24 12:57 TO IV SITE. tazobactam [From ZOSYN] Allergy Intermediate REDNESS/WARMTH Verified 01/07/24 12:57 TO IV SITE. ibuprofen Allergy Unknown Unknown Verified 01/07/24 12:57 lamotrigine [Lamictal] Allergy Unknown Unknown Verified 01/07/24 12:57 Anti-Inflammatory Enzyme Allergy Unknown rash on Uncoded 07/25/23 12:00 both legs Active Medications: Current Medications Acetaminophen (Acetaminophen 325 Mg Tablet) 650 mg PO Q6H PRN PRN Reason: Pain, Mild (Pain Scale 1-3), fever or headache Albuterol Sulfate (Albuterol Sulfate 90 Mcg 8 Gm Inhaler) 2 puff INHALE Q4H PRN PRN Reason: for wheezing Last Admin: 01/09/24 15:56 Dose: 2 puff Amlodipine Besylate (Amlodipine Besylate 5 Mg Tablet) 5 mg PO DAILY [facility]; Protocol Last Admin: 01/09/24 08:34 Dose: 5 mg Benzonatate (Benzonatate 100 Mg Capsule) 100 mg PO TID PRN PRN Reason: Cough Calcium Carbonate (Calcium Carbonate 750 Mg Tab.Chew) 750 mg PO Q4H PRN PRN Reason: Heartburn Heparin Sodium (Porcine) (Heparin Sodium,Porcine 5,000 Unit/Ml Vial) 5,000 unit SUBCUT Q12H [facility] Last Admin: 01/09/24 08:33 Dose: 5,000 unit Hydralazine HCl (Hydralazine Hcl 25 Mg Tablet) 25 mg PO TID [facility]; Protocol Last Admin: 01/09/24 15:22 Dose: 25 mg Ceftriaxone Sodium 1 gm/ (Sodium Chloride) 50 mls @ 100 mls/hr IV Q24H [facility] Last Infusion: 01/09/24 13:25 Dose: Infused Magnesium Hydroxide (Milk Of Magnesia 30 Ml Oral.Susp) 30 ml PO DAILY PRN PRN Reason: Constipation Melatonin (Melatonin 3 Mg Tablet) 6 mg PO BEDTIME PRN PRN Reason: Insomnia Morphine Sulfate (Morphine Sulfate 4 Mg/Ml Cartridge) 2 mg IVPUSH Q4H PRN; Protocol PRN Reason: Pain, Severe (Pain Scale 7-10) Last Admin: 01/09/24 05:05 Dose: 2 mg Morphine Sulfate (Morphine Sulfate Er 30 Mg Tablet.Er) 30 mg PO Q12H [facility] Last Admin: 01/09/24 08:34 Dose: 30 mg Ondansetron HCl (Ondansetron Hcl 4 Mg/2 Ml Vial) 4 mg IVPUSH Q8H PRN PRN Reason: Nausea and Vomiting Oxycodone HCl (Oxycodone Hcl Immed Release 5 Mg Tablet) 10 mg PO Q4H PRN PRN Reason: Pain, Severe (Pain Scale 7-10) Last Admin: 01/09/24 06:26 Dose: 10 mg Sertraline HCl (Sertraline Hcl 50 Mg Tablet) 50 mg PO DAILY [facility] Last Admin: 01/09/24 08:34 Dose: 50 mg Sodium Chloride (0.9 % Sodium Chloride Flush 3 Ml Syringe) 3 ml IVFLUSH QSHIFT [facility] Last Admin: 01/09/24 15:17 Dose: Not Given Trazodone HCl (Trazodone Hcl 100 Mg Tablet) 100 mg PO BEDTIME PRN PRN Reason: sleep Home Medications ?Medication ?Instructions ?Recorded ?Confirmed ?Last Taken ?Type oxycodone 20 mg tablet 20 mg PO Q4H PRN SEVERE PAIN 02/26/23 01/07/24 Unknown History morphine 30 mg tablet,extended 30 mg PO Q12H 01/07/24 01/07/24 Unknown History release prochlorperazine maleate 5 mg 5 - 10 mg PO Q6H PRN nausea 01/07/24 01/07/24 Unknown History tablet Physical Exam Vital Signs: Last Vital Signs Temp 98.4 F 01/09/24 16:00 Pulse 68 01/09/24 16:00 Resp 14 01/09/24 16:00 BP 160/60 H 01/09/24 16:00 Pulse Ox 95 01/09/24 16:00 O2 Del Method Room Air 01/09/24 16:00 BMI result Body Mass Index 25.8 Results Lab Results 01/09/24 05:33 01/09/24 05:33 Lab results: Chemistry 01/07/24 01/08/24 01/09/24 13:44 05:24 05:33 Sodium 140 142 141 Potassium 4.3 4.0 4.0 Carbon Dioxide 23 23 20 L BUN 30 H 38 H 37 H Creatinine 1.75 H 1.89 H 1.61 H Calcium 9.1 9.2 8.9 Hematology 01/07/24 01/08/24 01/09/24 13:44 05:24 05:33 WBC 20.1 H 17.4 H 10.3 Hgb 13.6 L D 13.0 L 11.8 L Plt Count 161 165 139 L Urinalysis 01/07/24 13:34 Urine Color Yellow Urine Appearance Turbid Urine pH >= 9.0 Ur Specific [place] 1.010 Urine Protein 100 (2+) H Urine Glucose (UA) Negative Urine Ketones Negative Urine Blood Moderate (2+) H Urine Nitrite Positive H Ur Leukocyte Esterase Large (3+) H Urine RBC 3-5 H Urine WBC 21-50 H Ur Squamous Epith Cells 3-5 Hyaline Casts 6-10 Assessment and Plan (1) ZINA (acute kidney injury): Status: Acute Plan ?73/m with PMH of asthma, Bladder CA, 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 on CKD BL cr 1.4 # ZINA/ solitary functioning kidney CKD BL cr 1.4 ZINA- peak cr of 1.8 - ? Due to hypoperfusion/dehydration, sepsis - mild rhabdo not likely contributing, ck already improving -? Cr improving with hydration, no h/o chf Keep I > O # Recurrent UTIs -? patient with history of urostomy bag -On antibiotics ct abd- 01/07/24 KIDNEYS AND URETERS: Status post left nephrectomy. There is right-sided hydronephrosis down to the level of the UPJ. There is marked perinephric stranding. No perinephric hematoma is seen. Stranding measures water density. No renal mass or laceration is seen. Procedures Date of Service Date of Service: 01/10/24
[2024-01-09] MEDS: traZODone HCL 100 MG TABLET PO (21:50)
[2024-01-10 03:16] VITALS: BP 140/66; PULSE 80; RESP 18; TEMP 36.4; O2SAT 93
[2024-01-10 07:47] LABS: Hematocrit 33.7 % (42.0-52.0); Mean Corpuscular HGB Conc 32.6 g/dl (31.0-36.0); Mean Corpuscular Hemoglobin 29.8 pg (27.0-33.0); Mean Corpuscular Volume 91.3 fL (80.0-98.0); Mean Platelet Volume 11.9 fL (9.4-12.4); Platelet Count 134 X10*3/uL (160-400); Red Blood Count 3.69 X10*6/uL (4.60-5.80); Red Cell Distribution Width 15.2 % (11.0-16.0); White Blood Count 4.3 X10*3/uL (4.8-10.8)
[2024-01-10] MEDS: 0.9 % Sodium Chloride 1,000 ML 100 ML IVCONT ×2 (07:48→15:16)
[2024-01-10 08:00] VITALS: BP 151/72; PULSE 74; RESP 14; TEMP 36.8; O2SAT 95
[2024-01-10 08:01] LABS: Anion Gap 12 (12-20); Blood Urea Nitrogen 32 mg/dL (9-16); Calcium 8.7 mg/dL (8.4-10.2); Carbon Dioxide 21 mmol/L (22-29); Chloride 114 mmol/L (96-108); Estimated Glomerular Filt Rate 42; Glucose Random 110 mg/dL (60-115); Potassium 4.1 mmol/L (3.3-5.1); Sodium 143 mmol/L (135-145)
[2024-01-10] MEDS: Morphine Sulfate ER 30 MG TABLET.ER PO ×2 (08:16→19:56)
[2024-01-10] MEDS: Heparin Sodium,Porcine 5,000 UNIT/ML VIAL 5000 UNIT SUBCUT ×2 (08:16→19:55)
[2024-01-10] MEDS: amLODIPine Besylate 5 MG TABLET PO (08:16)
[2024-01-10] MEDS: Sertraline HCL 50 MG TABLET PO (08:16)
[2024-01-10] MEDS: hydrALAZINE HCl 25 MG TABLET PO ×3 (08:16→19:56)
[2024-01-10] MEDS: Albuterol Sulfate 90 MCG 8 GM INHALER 2 PUFF INHALE ×2 (09:08→16:47)
--- NOTE | 2024-01-10 09:20 | MHC.SL.SWA ---
Speech Pathologist Impression: Risk of Aspiration Due to: Dysphasia Diet Status: Recommend continue on Regular diet with thin liquids, pills whole with liquid. Patient is able to eat independently, but should be encouraged to alternate sips of liquid with bites of solid. Liquid Consistency and Strategies for Safe Swallow: Liquid Intake Recommendation: Thin Liquid Intake Strategies: Small Sips Solid Food Consistency: Dietary Recommendations: Regular Additional Modifications to Solid Foods: Recommend START on PUREED (NDD1) diet and THIN liquids. Per RN, patient tolerated pills WHOLE in LIQUID this morning. At this time, patient requires total 1:1 assistance, with encouragement for patient to feed himself when possible. Standard aspiration precautions apply. 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 Oral Medication Intake: Whole with Liquid Please contact the pharmacy regarding appropriate crushable or liquid drug formulations that are available whenever modified delivery is recommended. Compensatory Strategies and Precautions to be Taken for Safe Swallow: Sitting Upright (90 deg) Liquids from Cup Liquids from Straw Small Bites and Sips Alternate Liquids/Solids Supervision While Eating and Drinking for Safe Swallow: None Needed Foods to Avoid: Swallowing Recommended Treatments: Compens. Strategy Educat. Recommendation for Speech: Inpatient Speech Therapy Comment: Patient seen at breakfast this morning. Diet was advanced yesterday to least restrictive: Regular with thin liquids, pills whole with liquid after patient evidenced toleration of this consistency on repeat clinical swallow. Patient this morning was awake an alert, had breakfast tray present, had eaten some of his omelet and cereal on tray, leaving most other food items untouched. Patient did not have c/o about food, just reported not feeling very hungry and feeling generally uncomfortable. Patient was observed taking sips of coffee with which he evidenced no difficulty. Patient refused any further food trials this morning, as he did not wish to eat any more of the meal. Patient has evidenced previously that he is averse to many foods and textures, with regular diet he can elect preferred foods to hopefully increase oral intake. Recommend continue on Regular Diet with thin liquids, pills whole with liquid. Recommend D/C speech services at this time as patient is on least restrictive diet and tolerating. Please re-consult if any additional concerns arise during inpatient stay. Frequency/Duration: M-F PRN Date Range for Service Req: Timeline to reassess: Blacksmith Assistant Clinican/Clinical Fellow: No Supervisory Statement: I have reviewed and agree with the student/clinical fellow's documentation: N/A Speech Language Pathologist: Susie Lawrence M.A., CCC-BU[employer]ER AND PAINTER
--- NOTE | 2024-01-10 11:19 | HO.WOUND ---
Wound Consult: Initial 73yr old?Male admitted to [facility] on 01/08/24 - See progress notes and H&P for detailed history.? Wound consult placed for Left heel wound POA.? Patient agreeable to assessment and photo documentation.? Patient reports she has had the wound for over a month - he reports frustration with wound not healing however reports she has not treated wound nor sought treatment for wound. Left Heel Etiology: Untageable Pressure Injury ??Present on Admission Measurements: 0.6cm x 2cm x 0.1cm Wound Bed: moist scab with yellow slough and maceration noted Drainage / Odor: ruffin small amount no odor noted Edges: ? irregular Britt wound: Red slow to rosalinda tissue - ? No Induration, Fluctuance or Warmth noted Pain: Painful per pt statement Goals of Treatment: ? Off Load and Durafiber AG for moisture management See Ostomy note for Urostomy Care provided. Recommendations: 1. Turn and Reposition every 2 hours and as needed for patient comfort.? Use pillows or wedges to support off loading positions. 2. Off Load all bony prominences with use of pillows and heel boots if needed.? Apply Preventative foams where needed. ? 3. Monitor for incontinence and moisture control, use barrier creams when needed for prevention and treatment. 4. Provide adequate and supplemental nutrition.? 5. Order or Continue low air loss mattress. 6. When applicable maintain blood glucose levels per Providers order. 7. Left Heel - Elevate heel off of surface of bed with pillows. Cleanse with Ns moist gauze. Apply skin prep. Apply Durafiber AG to wound bed cover with foam dressing and change every 3 days and PRN. Re-consult wound care Nurse for wound deterioration or wound changes.
--- NOTE | 2024-01-10 11:26 | HO.OSTOMY ---
Ostomy Consult: Initial 73yr old?Male admitted to [facility] on 01/08/24 - See progress notes and H&P for detailed history.?Ostomy consult placed for Urostomy with leaking and difficult to pouch stoma.? Patient agreeable to assessment and photo documentation.? Patient reports he uses a Convex pouch normally. He reports his son is bringing in his pouches from home today after 5. He is unable to recall the brand he uses. He reports it was created a few years ago at [facility] and has had problems with pouch adherence due to it being with in his crease of his abdomen. He is agreeable to a pouch change into Coloplast Convex pouch # [id number] since he is leaking currently. Stoma when sitting within crease Stoma - red moist round and above skin level but with in skin fold - needs convexity. Peristomal skin intact. Coloplast barrier ring used along with convex pouch [id number] and curved barrier strips to seal and belt. He was agreeable to these steps. Applied without complications. Patient will have own supplies this evening and is pending discharge tomorrow per direct care team.
[2024-01-10] MEDS: cefTRIAXone sodium 1 GM in 0.9 % Sodium Chloride 50 ML IV (12:47)
--- NOTE | 2024-01-10 14:31 | MHC.CM.PN ---
Per MD rounds patient not medically cleared for dc. Awaiting final cultures, potentially later today. DP:STR @ DB via BLS. Facililty updated.
[2024-01-10 15:06] VITALS: BP 150/69; PULSE 73; RESP 18; TEMP 36.7; O2SAT 95
--- NOTE | 2024-01-10 15:10 | P.PNIM_ITS ---
Subjective Subjective Date of Service: 01/10/24 Interval History: seen and evaluated this morning more alert and interactive Blood culture growing EColi Cr improved `1.6 Review of Systems Review of Systems: Yes all other systems are reviewed and are negative Physical Exam 2 Vital Signs: Vital Signs: Last Vital Signs Temp 98.1 F 01/10/24 15:06 Pulse 73 01/10/24 15:06 Resp 18 01/10/24 15:06 BP 150/69 H 01/10/24 15:06 Pulse Ox 95 01/10/24 15:06 O2 Del Method Room Air 01/10/24 15:06 BMI result Body Mass Index 25.8 Const: Other: Constitutional : alert but frail and weak, not in distress Cardiovascular : no JVP, no lower extremity edema Respiratory : bilateral chest movement, not in resp distress Gastrointestinal: soft, lax, Non tender Skin : Warm, Dry Neurological : Alert & oriented to self and place, moving extremities , No focal deficit Objective Data Active Medications Acetaminophen (Acetaminophen 325 Mg Tablet) 650 mg PO Q6H PRN PRN Reason: Pain, Mild (Pain Scale 1-3), fever or headache Albuterol Sulfate (Albuterol Sulfate 90 Mcg 8 Gm Inhaler) 2 puff INHALE Q4H PRN PRN Reason: for wheezing Last Admin: 01/10/24 09:08 Dose: 2 puff Documented By: JAMAICA Amlodipine Besylate (Amlodipine Besylate 5 Mg Tablet) 5 mg PO DAILY [facility]; Protocol Last Admin: 01/10/24 08:16 Dose: 5 mg Documented By: JAMAICA Benzonatate (Benzonatate 100 Mg Capsule) 100 mg PO TID PRN PRN Reason: Cough Calcium Carbonate (Calcium Carbonate 750 Mg Tab.Chew) 750 mg PO Q4H PRN PRN Reason: Heartburn Heparin Sodium (Porcine) (Heparin Sodium,Porcine 5,000 Unit/Ml Vial) 5,000 unit SUBCUT Q12H [facility] Last Admin: 01/10/24 08:16 Dose: 5,000 unit Documented By: JAMAICA Hydralazine HCl (Hydralazine Hcl 25 Mg Tablet) 25 mg PO TID [facility]; Protocol Last Admin: 01/10/24 08:16 Dose: 25 mg Documented By: JAMAICA Ceftriaxone Sodium 1 gm/ (Sodium Chloride) 50 mls @ 100 mls/hr IV Q24H [facility] Last Infusion: 01/10/24 13:45 Dose: Infused Documented By: JAMAICA Sodium Chloride (Ns) 1,000 mls @ 100 mls/hr IVCONT .Q10H [facility] Stop: 01/10/24 20:00 Last Admin: 01/10/24 07:48 Dose: 100 mls/hr Documented By: JAMAICA Magnesium Hydroxide (Milk Of Magnesia 30 Ml Oral.Susp) 30 ml PO DAILY PRN PRN Reason: Constipation Melatonin (Melatonin 3 Mg Tablet) 6 mg PO BEDTIME PRN PRN Reason: Insomnia Morphine Sulfate (Morphine Sulfate 4 Mg/Ml Cartridge) 2 mg IVPUSH Q4H PRN; Protocol PRN Reason: Pain, Severe (Pain Scale 7-10) Last Admin: 01/09/24 05:05 Dose: 2 mg Documented By: SANDRA Morphine Sulfate (Morphine Sulfate Er 30 Mg Tablet.Er) 30 mg PO Q12H [facility] Last Admin: 01/10/24 08:16 Dose: 30 mg Documented By: JAMAICA Ondansetron HCl (Ondansetron Hcl 4 Mg/2 Ml Vial) 4 mg IVPUSH Q8H PRN PRN Reason: Nausea and Vomiting Oxycodone HCl (Oxycodone Hcl Immed Release 5 Mg Tablet) 10 mg PO Q4H PRN PRN Reason: Pain, Severe (Pain Scale 7-10) Last Admin: 01/09/24 21:53 Dose: 10 mg Documented By: DARCI Sertraline HCl (Sertraline Hcl 50 Mg Tablet) 50 mg PO DAILY [facility] Last Admin: 01/10/24 08:16 Dose: 50 mg Documented By: JAMAICA Sodium Chloride (0.9 % Sodium Chloride Flush 3 Ml Syringe) 3 ml IVFLUSH QSHIFT [facility] Last Admin: 01/10/24 14:58 Dose: Not Given Documented By: JAMAICA Non-Admin Reason: IV Running Trazodone HCl (Trazodone Hcl 100 Mg Tablet) 100 mg PO BEDTIME PRN PRN Reason: sleep Last Admin: 01/09/24 21:50 Dose: 100 mg Documented By: DARCI Labs 01/10/24 07:33 01/10/24 07:33 Labs: Laboratory Results - last 24 hr 01/10/24 07:33 MCV 91.3 MCH 29.8 MCHC 32.6 RDW 15.2 Plt Count 134 L MPV 11.9 Absolute Nucleated RBC 0.000 Nucleated RBC % (auto) 0.0 Anion Gap 12 Estim Creat Clear Calc 42.0 Estimated GFR 42 Random Glucose 110 Calcium 8.7 Total Creatine Kinase 326 H Microbiology Microbiology Results: Microbiology 01/07/24 13:44 Blood Culture - Final Blood - Venous Escherichia coli 01/07/24 13:56 Blood Culture - Preliminary Blood - Venous No growth after 48 hours. 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 ZINA on CKD3 2/2 acute Rhabdomyolysis CK trended down Cr improved to 1.6 avoid nephrotoxins continue IVF I\O nephrology input appreciated follow BMP Fall PT evaluation acute Toxic metabolic encephalopathy 2/2 sepsis from UTI with E.Coli bacteremia normal LA E.Coli cultures Continue IV Ceftriaxone recurrent reorientation Transaminitis, 2/2 Rhabdo Elevated Trop likely 2/2 Rhabdo No EKG changes to suggest ACS, patient did not report chest pain, trend Trop Elevated BNP no evidence of fluid overload, likely 2/2 ZINA monitor clinically DVT PPx Heparin The patient will likely need overnight hospital stay for IVF for kidney injury Quality Stroke Does the patient have a stroke diagnosis?: No VTE Prior VTE?: No VTE Risk Level:: Medical - moderate - high VTE Device Contraindication: Treatment Not Indicated VTE Drug Contraindication: N/A - Med Ordered
[2024-01-10 19:18] VITALS: BP 145/63; PULSE 88; RESP 18; TEMP 36.6; O2SAT 93
[2024-01-10 19:56] VITALS: BP 145/63
[2024-01-10] MEDS: oxyCODONE HCl Immed Release 5 MG TABLET 10 MG PO (19:57)
[2024-01-10] MEDS: 0.9 % Sodium Chloride Flush 3 ML SYRINGE IVFLUSH (19:57)
[2024-01-10] MEDS: traZODone HCL 100 MG TABLET PO (19:57)
[2024-01-11 03:50] VITALS: BP 143/69; PULSE 68; RESP 16; TEMP 36.4; O2SAT 94
[2024-01-11 07:31] VITALS: BP 162/75; PULSE 66; RESP 18; TEMP 36.4; O2SAT 95
[2024-01-11 07:50] LABS: Anion Gap 11 (12-20); Blood Urea Nitrogen 29 mg/dL (9-16); Calcium 8.4 mg/dL (8.4-10.2); Carbon Dioxide 19 mmol/L (22-29); Chloride 116 mmol/L (96-108); Creatinine Clr Calc Pharmacy 45.9; Estimated Glomerular Filt Rate 46; Glucose Random 93 mg/dL (60-115); Potassium 3.9 mmol/L (3.3-5.1); Sodium 142 mmol/L (135-145)
[2024-01-11 08:34] VITALS: BP 162/75
[2024-01-11] MEDS: Morphine Sulfate ER 30 MG TABLET.ER PO (08:34)
[2024-01-11] MEDS: hydrALAZINE HCl 25 MG TABLET PO (08:34)
[2024-01-11 08:35] VITALS: BP 162/75
[2024-01-11] MEDS: oxyCODONE HCl Immed Release 5 MG TABLET 10 MG PO ×2 (08:35→12:33)
[2024-01-11] MEDS: amLODIPine Besylate 5 MG TABLET PO (08:35)
[2024-01-11] MEDS: Sertraline HCL 50 MG TABLET PO (08:35)
[2024-01-11] MEDS: Heparin Sodium,Porcine 5,000 UNIT/ML VIAL 5000 UNIT SUBCUT (08:35)
[2024-01-11] MEDS: 0.9 % Sodium Chloride Flush 3 ML SYRINGE IVFLUSH (08:35)
[2024-01-11] MEDS: Albuterol Sulfate 90 MCG 8 GM INHALER 2 PUFF INHALE (08:39)
--- NOTE | 2024-01-11 09:55 | MHC.CM.PN ---
Per MD patient medically cleared for dc to [facility]. S transport scheduled for 2pm to [facility]. Patient, son, RN and MD aware. IMM delivered.
--- NOTE | 2024-01-11 11:47 | P.DS_ITS ---
DS: Providers Provider Date of Service: 01/11/24 Date of admission: 01/07/24 17:07 Primary care physician: Unknown Physician Consults: 01/08/24 12:05 Consult to Nephrology Routine Consulting Provider: [facility] Reason for consultation: ZINA 2/2 Rhabdomyolysis 01/10/24 09:24 Consult to Wound Care Routine Reason for consultation: painful left heel wound. 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 The patient was unable to provide any meaningful history. denies any pain at time of interveiw but was totally lost and confused. EMS reported that residets called as he was found on floor with unclear downtime. In ED he was found to have elevated CK, ZINA with evidence of Urosepsis. started on IV fluids and antibiotics and admitted for further treatment. Hospital course - Acute Toxic metabolic encephalopathy secondary to sepsis from UTI with E.Coli bacteremia sensitive E.Coli in blood culture. Treated with IV Ceftriaxone with good response as mentaiton improved back to baseline. to finish total of 2 weeks of antibiotics. 10 more days of Ceftin on discharge. - ZINA on CKD3 secondary to acute Rhabdomyolysis CK elevated at 5000 on admission, trended down with IV fluid usage as creatinine improved from 1.75 to 1.5 which is around baseline. nephrology input appreciated and will follow as outpatient. - Fall, PT evaluation and recommended short term rehab. - Transaminitis and elevated Troponin secondary to Rhabdomyolysis. No EKG changes to suggest ACS, patient did not report chest pain. trended flat. Liver enzymes recovered. - Elevated BNP, no evidence of fluid overload - Left heel unstageable pressure wound. open with mild tenderness and pain. to give Doxycycline for 5 days. keep heel off pressure. use foam dressing. Discharge plan Continue Ceftin for 10 more days Doxycycline for 5 more days Keep left heel elevated and off pressure , cover w foam dressing Increase Amlodipine to 10 mg daily Start Losartan 25 mg daily and monitor your blood pressure for the next week before reporting readings to PCP Time Attestation Discharge Coordination Time (in mins): 41 Quality: Safe Use of Opioids Does Pt have an Active Cancer Diagnosis on the Problem List?: No Quality: Stroke Does the patient have a stroke diagnosis?: No Physical Exam Vital Signs: Vital Signs: Last Vital Signs Temp 97.5 F 01/11/24 07:31 Pulse 66 01/11/24 07:31 Resp 18 01/11/24 07:31 BP 162/75 H 01/11/24 08:35 Pulse Ox 95 01/11/24 07:31 O2 Del Method Room Air 01/11/24 07:31 BMI result Body Mass Index 25.8 Const: Other: Constitutional : alert but frail and weak, not in distress Cardiovascular : no JVP, no lower extremity edema Respiratory : bilateral chest movement, not in resp distress Gastrointestinal: soft, lax, Non tender Skin : Warm, Dry, left heel unstageable pressure wound Neurological : Alert & oriented to self and place, moving extremities , No focal deficit DS: Data Data Completed and Pending Completed studies during hospitalization [Text1]: Procedures Dilation of Right Ureter with Intraluminal Device, Via Natural or Artificial Opening Endoscopic (05/19/21) Extirpation of Matter from Right Ureter, Via Natural or Artificial Opening Endoscopic (05/19/21) Labs on day of discharge: Laboratory Results - last 24 hr 01/11/24 06:10 Sodium 142 Potassium 3.9 Chloride 116 H Carbon Dioxide 19 L Anion Gap 11 L BUN 29 H Creatinine 1.50 H Estim Creat Clear Calc 45.9 Estimated GFR 46 Random Glucose 93 Calcium 8.4 Preliminary micro results at discharge 01/07/24 13:56 Blood Culture - Preliminary Blood - Venous No growth after 48 hours. Imaging Chest x-ray: Radiologist's impression: ITS Impressions Cervical Spine CT 01/07/24 14:04 IMPRESSION: 1. No acute intracranial hemorrhage or territorial infarction. Moderate diffuse brain parenchymal volume loss and chronic lacunar infarcts in the deep staples matter structures. 2. No evidence of acute cervical spine traumatic injury. Moderate cervical spondylosis with moderate to severe multilevel central canal stenosis and foraminal narrowing. Head CT 01/07/24 14:04 IMPRESSION: 1. No acute intracranial hemorrhage or territorial infarction. Moderate diffuse brain parenchymal volume loss and chronic lacunar infarcts in the deep staples matter structures. 2. No evidence of acute cervical spine traumatic injury. Moderate cervical spondylosis with moderate to severe multilevel central canal stenosis and foraminal narrowing. Abdomen/Pelvis CT 01/07/24 14:10 IMPRESSION: 1. No evidence of an acute traumatic injury in the abdomen or pelvis. 2. There is mild right-sided hydronephrosis and perinephric stranding but an obvious injury is not seen. 3. Incidental note made of enlarged fatty liver, splenomegaly, left nephrectomy, cystectomy with ileal loop and right lower quadrant urostomy, colonic diverticulosis and degenerative changes in the spine. Fleischner guidelines were followed. Chest CT 01/07/24 14:10 IMPRESSION: 1. No evidence of a traumatic injury in the chest. 2. Incidental note made of right basilar atelectasis, mild splenomegaly and marked perinephric stranding around the right kidney with mild hydronephrosis. The patient will be undergoing a CT scan of the abdomen and pelvis which will further evaluate this. Fleischner guidelines were followed. Discharge Plan Discharge Anticipated Discharge Date/Time: 01/11/24 11:37 Patient Disposition: Xfer SNF Discharge Diagnosis: E.Coli bacteremia Heel wound Referrals: [facility] [Outside] - 1 Day (short term rehab) Physician,Unknown J [Primary Care Provider] - 1 Week Discharge Medications: New cefuroxime axetil 500 mg tablet 500 mg PO BID Qty: 20 0RF losartan 25 mg tablet 25 mg PO DAILY Qty: 30 0RF doxycycline monohydrate 100 mg capsule 100 mg PO BID Qty: 10 0RF Continued (DME) [employer] Misc See Rx Instructions .Route Qty: 1 5RF Rx Instructions: As directed sertraline 50 mg tablet 50 mg PO DAILY 30 Days Qty: 30 2RF trazodone 100 mg tablet 100 mg PO BEDTIME PRN (Reason: sleep) Qty: 30 2RF albuterol sulfate [Ventolin HFA] 90 mcg/actuation HFA aerosol inhaler 2 puff inhalation Q4H PRN (Reason: for wheezing) Qty: 18 0RF prochlorperazine maleate 5 mg tablet 5 - 10 mg PO Q6H PRN (Reason: nausea) morphine 30 mg tablet extended release 30 mg PO Q12H Qty: 20 0RF oxycodone 20 mg tablet 20 mg PO Q4H PRN (Reason: SEVERE PAIN) Qty: 20 0RF Changed amlodipine 5 mg tablet 10 mg PO DAILY Qty: 90 1RF Discharge Orders: Discharge Order (Routine); Ordered 01/11/24 Ordered By: Alex Marte Diet: Advance to usual diet Activity on Discharge: As tolerated Stand Alone Forms: Patient Portal Discharge page Print Language: Swiss Activity Restrictions/Additional Instructions: Wound care Recommendations: 1. Turn and Reposition every 2 hours and as needed for patient comfort.? Use pillows or wedges to support off loading positions. 2. Off Load all bony prominences with use of pillows and heel boots if needed.? Apply Preventative foams where needed. ? 3. Monitor for incontinence and moisture control, use barrier creams when needed for prevention and treatment. 4. Provide adequate and supplemental nutrition.? 5. Order or Continue low air loss mattress. 6. When applicable maintain blood glucose levels per Providers order. 7. Left Heel - Elevate heel off of surface of bed with pillows. Cleanse with Ns moist gauze. Apply skin prep. Apply Durafiber AG to wound bed cover with foam dressing and change every 3 days and PRN. Care Plan Goals: Continue Ceftin for 10 more days Doxycycline for 5 more days Keep left heel elevated and off pressure , cover w foam dressing Increase Amlodipine to 10 mg daily Start Losartan 25 mg daily and monitor your blood pressure for the next week before reporting readings to PCP Health Concerns: Read below Plan of Treatment: Read below Assessment: Read below
[2024-01-11] MEDS: Doxycycline Monohydrate 100 MG CAPSULE PO (12:20)
== END 2024-01-11 14:04 | disposition skilled nursing facility (03) | DRG 871 ==
LOC: HO.ED 15:02 → HO.EDOVER 17:29 → HO.S3 23:34
PROVIDERS: Physician Assistant; Admitting Provider Student in an Organized Health Care Education/Training Program; Emergency Provider Emergency Medicine; PCP Internal Medicine; Visit Provider Student in an Organized Health Care Education/Training Program
DX: A41.9 Sepsis, unspecified organism (principal); G92.8 Other toxic encephalopathy; N17.9 Acute kidney failure, unspecified; N13.6 Pyonephrosis; B96.20 Unspecified Escherichia coli [E. coli] as the cause of diseases classified elsewhere; T79.6XXA Traumatic ischemia of muscle, initial encounter; W19.XXXA Unspecified fall, initial encounter; Z90.5 Acquired absence of kidney; N18.30 Chronic kidney disease, stage 3 unspecified; E86.0 Dehydration; Z85.51 Personal history of malignant neoplasm of bladder; Z85.528 Personal history of other malignant neoplasm of kidney; Z85.830 Personal history of malignant neoplasm of bone; Z87.440 Personal history of urinary (tract) infections; Z93.6 Other artificial openings of urinary tract status; Z79.899 Other long term (current) drug therapy
CPT/HCPCS: 36415; 70450; 71260; 72125; 74177; 80048; 80053; 80076; 81001; 82550; 82947; 83605; 83690; 83735; 83880; 84484; 85025; 85027; 85610; 87040; 87077; 87086; 87186; 87205; 92526; 92610; 93005; 94640; 97162; 99285; J0696; J1644; J1940; J2270; Q9967

== ENCOUNTER → 2024-01-07 14:18 | Outpatient (BNV) | payer MEDICARE, SELFPAY | PROVIDERS: Admitting Provider Student in an Organized Health Care Education/Training Program; Emergency Provider Emergency Medicine; Visit Provider Internal Medicine Cardiovascular Disease | DX: R94.31 Abnormal electrocardiogram [ECG] [EKG] (principal) | CPT/HCPCS: 93010 ==

== ENCOUNTER → 2024-01-07 17:07 | Outpatient (BNV) | payer MEDICARE, MEDICAID, SELFPAY | PROVIDERS: Admitting Provider Student in an Organized Health Care Education/Training Program; Emergency Provider Emergency Medicine; Visit Provider Student in an Organized Health Care Education/Training Program | DX: A41.9 Sepsis, unspecified organism (principal); N17.9 Acute kidney failure, unspecified; M62.82 Rhabdomyolysis; G92.8 Other toxic encephalopathy; S81.809A Unspecified open wound, unspecified lower leg, initial encounter; N39.0 Urinary tract infection, site not specified | CPT/HCPCS: 99223; 99232; 99233; 99239 ==

== ENCOUNTER 2024-01-29 14:47 | Inpatient (IN) | payer MEDICARE, MEDICAID, SELFPAY ==
--- NOTE | ~2024-01-29 | US_ITS ---
EXAMINATION: US VENOUS ULTRASOUND WITH DOPPLER LOWER EXTREMITY, BILATERAL CLINICAL INFORMATION: Bilateral lower extremity edema and swelling COMPARISON: Right lower extremity DVT study 02/19/2014, bilateral DVT exam 09/15/2012 TECHNIQUE: Ultrasound of the deep veins is performed from the hip to the calf with compression sonography and color and pulse Doppler assessment. Spectral analysis with color-flow imaging is performed. FINDINGS: RIGHT: There is noncompressive partially occlusive thrombus present in the right popliteal vein. There is normal venous compression and respiratory variation and augmented flow seen throughout the remainder. The visualized common femoral vein, superficial femoral vein, profunda femoral vein, and the trifurcation region shows no evidence of deep venous thrombosis. There is no significant popliteal fossa cyst. Edema is noted in the calf. Prominent lymph nodes are seen in the groin measuring up to 2.3 x 0.8 x 2.2 cm. LEFT: There is normal venous compression and respiratory variation and augmented flow. The visualized common femoral vein, superficial femoral vein, profunda femoral vein, popliteal vein, and the trifurcation region shows no evidence of deep venous thrombosis. There is no significant popliteal fossa cyst. Edema is noted in the calf. US/US venous duplex LE BI IMPRESSION: 1. Partially occlusive acute thrombus in the right popliteal vein. 2. No DVT seen in the left lower extremity.
--- NOTE | ~2024-01-29 | NM_ITS ---
EXAMINATION: NM LUNG IMAGE PERFUSION CLINICAL INFORMATION: Recent DVT with dyspnea. Evaluate for pulmonary emboli COMPARISON: Compared to the chest x-ray from today and the contrast-enhanced CT scan the chest of 01/07/2024 TECHNIQUE: Multiple oblique gamma camera images of the chest were obtained following the intravenous administration of 4.0 mCi of technetium 99m MAA. Perfusion study only was performed. Ventilatory images were not obtained. FINDINGS: On today's chest x-ray, there is asymmetric elevation of the right hemidiaphragm and bibasilar markings suggesting a component of atelectasis with a right sided chest port noted. On the perfusion images again there is some mild volume loss at the right base as noted on the prior chest x-ray. There is very mild heterogeneity to the distributed activity within the bilateral lung parenchyma. I do not appreciate any fixed segmental or subsegmental defects on the perfusion images. NM/NM pul perfusion IMPRESSION: Low probability VQ scan. No fixed segmental or subsegmental defects. There is very mild heterogeneity to the distributed activity and note made of asymmetric elevation of the right hemidiaphragm as seen on the recent prior chest x-ray
--- NOTE | ~2024-01-29 | XR_ITS ---
EXAMINATION: XR CHEST CLINICAL INFORMATION: Shortness of breath COMPARISON: 12/03/2021 TECHNIQUE: Frontal view of the chest was obtained. FINDINGS: There is Port-A-Cath present on the right with the tip over the atriocaval junction. There is elevation of right hemidiaphragm. Bibasilar atelectasis present. No evidence of infiltrates or nodules. Cardiomediastinal silhouette is normal. XR/XR chest 1V IMPRESSION: No active cardiopulmonary disease.
[2024-01-29 14:53] VITALS: BP 116/70; BP 136/53; PULSE 68; PULSE 70; RESP 18; TEMP 36.4; O2SAT 92; O2SAT 94; BMI 30.5
--- NOTE | 2024-01-29 14:58 | ECG_ITS ---
Test Reason : dyspnea Blood Pressure : / mmHG Vent. Rate : 062 BPM Atrial Rate : 062 BPM P-R Int : 218 ms QRS Dur : 106 ms QT Int : 428 ms P-R-T Axes : 027 -30 005 degrees QTc Int : 434 ms Sinus rhythm with 1st degree A-V block Left axis deviation Minimal voltage criteria for LVH, may be normal variant ( R in aVL ) Abnormal ECG When compared with ECG of 07-JAN-2024 14:57, RI interval has increased Vent. rate has decreased BY 33 BPM Referred By: Chana Tim Electronically Signed By:Salas Vanessa
--- NOTE | 2024-01-29 15:01 | PC.NURSE ---
Brought in via ems from home after VNA was concerned about patient having SOB. Patient with d/c home from snf yesterday and was found to have a blood clot in the right leg prior to d/c home. Patient reports was prescribed eliquis and has been taking it BID. Patient with ostomy bag that he uses duck tape to secure. States that its the only way the bag will stay on. Denies sob, sating 86% upon arrival to ED, placed no 2 liters NC
--- NOTE | 2024-01-29 15:17 | ED.SOB ---
HPI - SOB/Dyspnea General Chief Complaint: Dyspnea Stated Complaint: SOB, RECENT DVT/RLE, SENT BY [facility] NONCOMP W/AMBER Time Seen by Provider: 01/29/24 14:53 Source: patient and old records reviewed Mode of arrival: EMS Limitations: no limitations History of Present Illness ED Provider: CHRISTINE CERON Narrative: 73 yo male with PMH of asthma not on home O2, bladder cancer - mets to pelvis, hyperlipidemia, chronic lymphedema, CKD, anemia, transition cell carcinoma L kidney, DM, HTN just admitted here and treated for UTI with E. Coli bacteremia, ZINA and rhabdo - he notes he was at rehab until 2 days ago. He has [facility]NA coming in. He was dx with R leg DVT this week and sent home on eliquis he reports he is compliant. He states he feels fine the [facility]NA freaked out over his legs being swollen. He states he has chronic asthma and feels fine no fevers, cough, sputum. He denies chest pain or dyspnea nand states his legs always look like this. of note the patient tried to leave AMA and was going to until son talked him into staying patient does not want to go on hospice so he agreed to treatment he still is adamant he took the AM dose of his amber MD elicited complaint: shortness of breath Pertinent past history: asthma and diabetes Onset (ago): week(s) Timing: intermittent Severity: mild Exacerbating factors: movement Relieving factors: rest Known history of: asthma Associated symptoms: other (leg edema) Treatment prior to arrival: oxygen Related Data Home Medications ?Medication ?Instructions ?Recorded ?Confirmed prochlorperazine maleate 5 mg 5 - 10 mg PO Q6H PRN nausea 01/07/24 01/07/24 tablet Previous Rx's ?Medication ?Instructions ?Recorded ostomy supplies (Visi-Flow #1 ea 03/28/23 [employer] [facility] misc) cefuroxime axetil 500 mg tablet 500 mg PO BID #20 tabs 01/11/24 doxycycline monohydrate 100 mg 100 mg PO BID #10 caps 01/11/24 capsule losartan 25 mg tablet 25 mg PO DAILY #30 tabs 01/11/24 morphine 30 mg tablet,extended 30 mg PO Q12H #20 tabs 01/11/24 release oxycodone 20 mg tablet 20 mg PO Q4H PRN SEVERE PAIN #20 01/11/24 tabs albuterol sulfate 90 mcg/actuation 2 puff inhalation Q4H PRN for 01/18/24 aerosol inhaler (Ventolin HFA) wheezing #18 ea amlodipine 5 mg tablet 10 mg (2 x 5 mg) PO DAILY #90 tabs 01/22/24 sertraline 50 mg tablet 50 mg PO DAILY 30 days #30 tabs 01/27/24 trazodone 100 mg tablet 100 mg PO BEDTIME PRN sleep #30 01/27/24 tabs Allergies Allergy/AdvReac Type Severity Reaction Status Date / Time piperacillin [From ZOSYN] Allergy Intermediate REDNESS/WARMTH Verified 01/29/24 14:54 TO IV SITE. tazobactam [From ZOSYN] Allergy Intermediate REDNESS/WARMTH Verified 01/29/24 14:54 TO IV SITE. ibuprofen Allergy Unknown Unknown Verified 01/29/24 14:54 lamotrigine [Lamictal] Allergy Unknown Unknown Verified 01/29/24 14:54 Anti-Inflammatory Enzyme Allergy Unknown rash on Uncoded 01/29/24 14:54 both legs Review of Systems Review of Systems: Constitutional : No Fever, No Chills ENT/Mouth : No sore throat, No Rhinorrhea, No Swallowing Difficulty Eyes: No Eye Pain, No Swelling, No Redness Cardiovascular : No Chest Pain, positive SOB, No Orthopnea, positive Edema Respiratory : No Cough, No Sputum, No Wheezing, positive dyspnea Gastrointestinal : No Nausea, No Vomiting, No Diarrhea, No abdominal Pain, No Hematochezia, No Melena Genitourinary : No Dysuria, No Urinary Frequency, No Hematuria Musculoskeletal : No joint pain, No Myalgias Skin : No Skin Lesions, No rash Neuro : No Weakness, No Numbness, No Dizziness, No Headache Psych : No Anxiety/Panic, No Depression All other systems reviewed and are negative [facility] Past Medical History Attestation statement: The following information was validated with the patient. Source: old records reviewed Medical History Overweight (BMI 25.0-29.9) Presence of urostomy CKD (chronic kidney disease), stage III Hematuria Hyperkalemia Hypertension, uncontrolled Hydronephrosis Urinary tract infection Acute renal failure Hypertension Bipolar disorder Acute kidney injury Dermatitis 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 Pruritic erythematous rash Anemia Obesity (BMI 30-39.9) Insomnia Lumbar degenerative disc disease Type 2 diabetes mellitus with diabetic chronic kidney disease Benign essential hypertension Chronic kidney disease (CKD), stage III (moderate) Hematuria Metabolic encephalopathy HLD (hyperlipidemia) Bladder cancer Asthma HTN (hypertension) Surgical History History of urinary diversion procedure Hx of total cystectomy (~08/03/21) History of left nephrectomy (~11/29/20) History of cystoscopy History of bladder surgery Family History Family History Father Hypertension CVD (cardiovascular disease) Mother No problems noted. Social History Social History Household Members: None Housing: Apartment Do you presently have visiting nurse or other home services: No Unable to assess alcohol history related to: Refusing to respond Alcohol intake: former Comment: pt refuses alarm Patient Tobacco Use Status: Never used Tobacco Smoked in Last 30 Days: No e-Cigarette/Vaping Use: Never Used Second Hand Smoke Exposure: No Use of substances other than those prescribed or required for medical reasons: No Advance Directives: Yes Advance Directives on File: Yes Advance Directives Date on File: 11/17/21 service: No Current occupational status: retired and disabled Cognitive needs: No Hearing needs: No Vision needs: No Physical Exam Vital Signs: Vital Signs: Last Vital Signs Temp 98 F 01/29/24 18:00 Pulse 76 01/29/24 18:00 Resp 18 01/29/24 18:00 BP 164/86 H 01/29/24 18:00 Pulse Ox 97 01/29/24 18:00 O2 Del Method Nasal Cannula 01/29/24 18:00 O2 Flow Rate 2 01/29/24 18:00 Oxygen Flow Rate 2 01/29/24 14:53 BMI result Body Mass Index 30.5 Appearance: Alert. Oriented X3. No acute distress. Eyes: Pupils equal, round and reactive to light. ENT: Pharynx normal. Neck: Normal inspection. Neck supple. CVS: Normal heart rate and rhythm. Pulses normal. Respiratory: No respiratory distress. Breath sounds slightly diminished bases Abdomen: Soft and nontender. Skin: Skin warm and dry. Normal skin color. Normal skin turgor. Extremities: bilateral 2+ pitting lower extremity edema. Neuro: Oriented X 3. No motor deficit. No sensory deficit. Course Course Course Narrative: ZINA on CKD VQ scan ordered trop lower than baseline Medications Administered Generic Name Dose Route Start Last Admin Trade Name Freq PRN Reason Stop Dose Admin Sodium Chloride 1,000 mls @ 80 mls/hr 01/29/24 16:15 01/29/24 18:29 Ns IVCONT 80 mls/hr .[id number] BALA Administration Medical Decision Making Medical Decision Making [facility] Narrative: 73 yo male with PMH of asthma not on home O2, bladder cancer - mets to pelvis, hyperlipidemia, chronic lymphedema, CKD, anemia, transition cell carcinoma L kidney, DM, HTN here with c/o recent RLE DVT on eliquis he reports compliance he was never dyspneic per his reports no hypoxia reported at this time he notes his VNA freaked out due to his legs being swollen but he states he has lymphedema. At this time will obtain basic labs, EKG, CXR, DVT study. He notes that he is compliant with his eliquis and he is not sure why they are questioning him. CHF possible, asthma, VTE but he reports compliance with eliquis SON IS HERE AND REPORTS HE HAS TAKEN NO ELIQUIS, HE WAS FOUND WITH LOW o2 SATS AND HE IS NOT COMPLIANT WITH THERAPY. PATIENT TRIED TO LEAVE AMA BUT SON WAS ABLE TO TALK HIM INTO STAYING Differential Diagnosis Differential Diagnoses: The differential diagnosis associated with the presentation includes lymphedema, DVT, could be PE but he denies CP/SOB but given hypoxia and lack of taking medications VTE highly likely unsure if he took eliquis this AM Admission/Observation Consideration of admission/observation: Escalation of care including admission/observation considered admit for ZINA on CKD Consult Healthcare Provider Management of the patient was discussed with: Hospitalist (will admit) Lab Data [facility] Lab Attestation statement: I reviewed the patient's lab results. 01/29/24 15:38 01/29/24 15:38 Labs: Lab Results 01/29/24 Range/Units 15:38 WBC 3.0 L (4.8-10.8) X10*3/uL RBC 3.25 L (4.60-5.80) X10*6/uL Hgb 9.7 L (14.0-18.0) g/dl Hct 30.7 L (42.0-52.0) % MCV 94.5 (80.0-98.0) fL MCH 29.8 (27.0-33.0) pg MCHC 31.6 (31.0-36.0) g/dl RDW 14.6 (11.0-16.0) % Plt Count 94 L D (160-400) X10*3/uL MPV 11.9 (9.4-12.4) fL Immature Gran % (Auto) 0.7 H (0.0-0.4) % Neut % (Auto) 60.0 (45-73) % Lymph % (Auto) 24.8 (20-40) % Bates % (Auto) 7.6 (2-11) % Eos % (Auto) 5.6 H (0-4) % Baso % (Auto) 1.3 (0-2) % Lymph # (Auto) 0.8 L (1.2-4.9) X10*3/uL Bates # (Auto) 0.2 (0.1-1.2) X10*3/uL Eos # (Auto) 0.2 (0.0-0.4) X10*3/uL Baso # (Auto) 0.0 (0.0-0.2) X10*3/uL Abs Immat Gran (auto) 0.02 (0.00-0.03) X10*3/uL Absolute Neuts (auto) 1.8 L (2.0-8.3) x10*3/uL Absolute Nucleated RBC 0.000 (0.0-0.012) X10*3/uL Nucleated RBC % (auto) 0.0 (0.0-0.2) /100WBC PT 15.9 H (11.1-13.3) SEC INR 1.3 H (0.9-1.1) Sodium 139 (135-145) mmol/L Potassium 5.4 H D (3.3-5.1) mmol/L Chloride 110 H (96-108) mmol/L Carbon Dioxide 24 (22-29) mmol/L Anion Gap 10 L (12-20) BUN 40 H (9-16) mg/dL Creatinine 2.29 H (0.5-1.4) mg/dL Estim Creat Clear Calc 31.9 Estimated GFR 28 Random Glucose 93 (60-115) mg/dL Calcium 9.0 D (8.4-10.2) mg/dL Magnesium 2.5 (1.6-2.6) mg/dL Total Bilirubin 0.6 (0.0-1.0) mg/dL Direct Bilirubin 0.2 (0.0-0.5) mg/dL AST 11 (5-37) U/L ALT 7 (0-40) U/L Alkaline Phosphatase 81 (39-117) U/L Troponin I High Sens 3.7 D (<3.5-35.0) ng/L B-Natriuretic Peptide 124 H (<100) pg/mL Total Protein 6.0 L (6.5-8.0) g/dL Albumin 3.6 (3.5-5.0) g/dL Independent Interpretation I performed an independent interpretation of an: EKG, Plain X-Ray (normal ) and Ultrasound (+ DVT) Interpretation: Rate: 62 Rhythm: NSR [place]: left Normal P waves. Normal BENIGNO. Normal QRS complex. ST T wave : inverted t waves V1, inverted t waves III, no NATE qTC: 434 prior studies: no acute ischemia The study has been interpreted contemporaneously by me. Radiology Impression Discussion of test interpretation with radiology: I have reviewed the radiologist's reading. Radiologist Impression: VQ scan low prob Independent Historian Clinical information obtained from an independent historian. History obtained from or confirmed by: EMS and Other (son) External Record Review External record reviewed: Inpatient record Discharge Plan Discharge Clinical Impression: Acute kidney injury superimposed on chronic kidney disease, Hypoxia DVT (deep venous thrombosis) Qualifiers: DVT location: lower extremity Affected thrombotic vein of extremity: popliteal Chronicity: acute Laterality: right Qualified Code(s): I82.431 - Acute embolism and thrombosis of right popliteal vein Patient Disposition: Admitted As Inpatient Print Language: Wolof
[2024-01-29 15:43] LABS: MANUAL DIFF FLAG NO
[2024-01-29 15:44] LABS: Basophils Percent Auto 1.3 % (0-2); Eosinophils Absolute Auto 0.2 X10*3/uL (0.0-0.4); Eosinophils Percent Auto 5.6 % (0-4); Hematocrit 30.7 % (42.0-52.0); Hemoglobin 9.7 g/dl (14.0-18.0); Imm Gran Abs Auto 0.02 X10*3/uL (0.00-0.03); Imm Gran Pct Auto 0.7 % (0.0-0.4); Lymphocytes Absolute Auto 0.8 X10*3/uL (1.2-4.9); Lymphocytes Percent Auto 24.8 % (20-40); Mean Corpuscular HGB Conc 31.6 g/dl (31.0-36.0); Mean Corpuscular Hemoglobin 29.8 pg (27.0-33.0); Mean Corpuscular Volume 94.5 fL (80.0-98.0); Mean Platelet Volume 11.9 fL (9.4-12.4); Monocytes Absolute Auto 0.2 X10*3/uL (0.1-1.2); Monocytes Percent Auto 7.6 % (2-11); Neutrophils Absolute Auto 1.8 x10*3/uL (2.0-8.3); Red Blood Count 3.25 X10*6/uL (4.60-5.80); Red Cell Distribution Width 14.6 % (11.0-16.0)
[2024-01-29 15:50] LABS: INTERNATIONAL NORM RATIO 1.3 (0.9-1.1); Prothrombin Time 15.9 SEC (11.1-13.3)
[2024-01-29 16:01] LABS: Alanine Aminotransferase 7 U/L (0-40); Albumin Level 3.6 g/dL (3.5-5.0); Alkaline Phosphatase 81 U/L (39-117); Anion Gap 10 (12-20); Aspartate Amino Transferase 11 U/L (5-37); Bilirubin Direct 0.2 mg/dL (0.0-0.5); Bilirubin Total 0.6 mg/dL (0.0-1.0); Blood Urea Nitrogen 40 mg/dL (9-16); Carbon Dioxide 24 mmol/L (22-29); Chloride 110 mmol/L (96-108); Creatinine Clr Calc Pharmacy 31.9; Estimated Glomerular Filt Rate 28; Glucose Random 93 mg/dL (60-115); Magnesium 2.5 mg/dL (1.6-2.6); Potassium 5.4 mmol/L (3.3-5.1); Sodium 139 mmol/L (135-145)
[2024-01-29 16:03] LABS: Platelet Count 94 X10*3/uL (160-400)
[2024-01-29 16:04] LABS: Troponin-I High Sensitivity 3.7 ng/L (<3.5-35.0)
[2024-01-29 16:18] LABS: B Type Natriuretic Peptide 124 pg/mL (<100)
--- NOTE | 2024-01-29 16:36 | MHC.EDTECH ---
d/c bladder scan order with verbal order from DO
--- NOTE | 2024-01-29 16:45 | PC.NURSE ---
Patient declining for IV fluids to be started, stating he would like to go home. Sating 85% on RA, patient stating he does not care that he is dying from cancer so he needs to go home. Declined for 02 to be placed, removed cardiac monitoring and removed hospital attire. Provider at bedside to speak to patient , patient aware that he can sign out AMA. IV removed.
--- NOTE | 2024-01-29 17:38 | PC.NURSE ---
Patients son at bedside , son and provider spoke with patient and patient agreed to stay. New IV placed, patient brought to nuc med for scan. Patient declining to take off personal clothes at this time
[2024-01-29 18:00] VITALS: BP 164/86; PULSE 76; RESP 18; TEMP 36.6; O2SAT 97
[2024-01-29] MEDS: 0.9 % Sodium Chloride 1,000 ML 80 ML IVCONT (18:29)
--- NOTE | 2024-01-29 18:37 | PC.NURSE ---
Returned from [facility], allowed to be changed back into hospital attire, urostomy bag replaced, patietn provided with food / fluids. Maintenance fluids started
[2024-01-29] MEDS: Apixaban 5 MG TABLET PO ×2 (19:15→20:00)
--- NOTE | 2024-01-29 19:16 | PC.NURSE ---
assumed care of pt at 1900 - pt resting comfortably on stretcher in no apparent distress, reporting all over body pain from his cancer diagnosis - requesting his home pain medications. will alert MD. strong po given with water. pt wearing 3L O2 via nasal cannula, at 96%. pt ate dinner, call sheikh within reach. plan of care ongoing.
--- NOTE | 2024-01-29 19:43 | P.HPHOSP_ITS ---
History of Present Illness Date of Service: 01/29/24 Chief Complaint: Leg swelling This is a 73-year-old male with pertinent history of bladder cancer with mets to pelvis, CKD stage 3, hypertension, mood disorder, asthma not on home O2, transitional cell carcinoma of left kidney, presence of urostomy who was sent to the emergency department for evaluation of leg swelling. Patient states [facility] at home noticed that the leg was swollen and send the patient to the ER for further evaluation. Patient was diagnosed with right leg DVT about 6-7 days ago but there reports of noncompliance with Eliquis. Patient states vaguely that he has been taking Eliquis for the last 2 days, unknown dose or frequency. No fever, chills, chest discomfort, palpitations, shortness of breath, abdominal pain, changes in urinary or bowel habits. Of note, the patient was recently admitted on 01/06 with acute encephalopathy due to UTI with E coli bacteremia and ZINA and discharged on 01/10 with p.o. Ceftin and doxycycline. In the emergency department, imaging with partially occlusive acute thrombus in the right popliteal vein. Creatinine found to be elevated. Review of Systems 2 Constitutional: Constitutional: Reports no additional constitutional complaints Cardiovascular: Cardiovascular: Reports no additional cardiovascular complaints Respiratory: Respiratory: Reports no additional respiratory complaints Gastrointestinal: Gastrointestinal: Reports no additional gastrointestinal complaints Genitourinary: Genitourinary: Reports no additional male genitourinary complaints [facility] Medical History Overweight (BMI 25.0-29.9) Presence of urostomy CKD (chronic kidney disease), stage III Hematuria Hyperkalemia Hypertension, uncontrolled Hydronephrosis Urinary tract infection Acute renal failure Hypertension Bipolar disorder Acute kidney injury Dermatitis 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 Pruritic erythematous rash Anemia Obesity (BMI 30-39.9) Insomnia Lumbar degenerative disc disease Type 2 diabetes mellitus with diabetic chronic kidney disease Benign essential hypertension Chronic kidney disease (CKD), stage III (moderate) Hematuria Metabolic encephalopathy HLD (hyperlipidemia) Bladder cancer Asthma HTN (hypertension) Family History Father Hypertension CVD (cardiovascular disease) Mother No problems noted. Surgical History History of urinary diversion procedure Hx of total cystectomy (~08/03/21) History of left nephrectomy (~11/29/20) History of cystoscopy History of bladder surgery Social History Household Members: None Housing: Apartment Do you presently have visiting nurse or other home services: No Unable to assess alcohol history related to: Refusing to respond Alcohol intake: former Comment: pt refuses alarm Patient Tobacco Use Status: Never used Tobacco Smoked in Last 30 Days: No e-Cigarette/Vaping Use: Never Used Second Hand Smoke Exposure: No Use of substances other than those prescribed or required for medical reasons: No Advance Directives: Yes Advance Directives on File: Yes Advance Directives Date on File: 11/17/21 service: No Current occupational status: retired and disabled Cognitive needs: No Hearing needs: No Vision needs: No Meds Allergies Allergy/AdvReac Type Severity Reaction Status Date / Time piperacillin [From ZOSYN] Allergy Intermediate REDNESS/WARMTH Verified 01/29/24 14:54 TO IV SITE. tazobactam [From ZOSYN] Allergy Intermediate REDNESS/WARMTH Verified 01/29/24 14:54 TO IV SITE. ibuprofen Allergy Unknown Unknown Verified 01/29/24 14:54 lamotrigine [Lamictal] Allergy Unknown Unknown Verified 01/29/24 14:54 Anti-Inflammatory Enzyme Allergy Unknown rash on Uncoded 01/29/24 14:54 both legs Active Medications: Current Medications Apixaban (Apixaban 5 Mg Tablet) 10 mg PO BID [facility]A Stop: 02/05/24 21:01 Sodium Chloride (Ns) 1,000 mls @ 80 mls/hr IVCONT .[id number] [facility] Last Admin: 01/29/24 18:29 Dose: 80 mls/hr Home Medications ?Medication ?Instructions ?Recorded ?Confirmed ?Last Taken ?Type prochlorperazine maleate 5 mg 5 - 10 mg PO Q6H PRN nausea 01/07/24 01/07/24 Unknown History tablet Physical Exam 2 Vital Signs and Narrative: Vital Signs: Last Vital Signs Temp 98 F 01/29/24 18:00 Pulse 76 01/29/24 18:00 Resp 18 01/29/24 18:00 BP 164/86 H 01/29/24 18:00 Pulse Ox 97 01/29/24 18:00 O2 Del Method Nasal Cannula 01/29/24 18:00 O2 Flow Rate 2 01/29/24 18:00 Oxygen Flow Rate 2 01/29/24 14:53 BMI result Body Mass Index 30.5 Middle-aged male lying in bed in no distress Neck supple, no JVD Regular rate and rhythm, S1-S2 heard Regular breath sounds bilaterally, no wheezing or crackles appreciated Abdomen soft nontender, no guarding, no rigidity, urostomy bag present Patient is awake, alert and oriented to self, place, time and person ; no focal motor deficit Psych: Normal mood Bilateral edema + Results Labs 01/29/24 15:38 01/29/24 15:38 Labs: Laboratory Results - last 24 hr 01/29/24 15:38 MCV 94.5 MCH 29.8 MCHC 31.6 RDW 14.6 Plt Count 94 L D MPV 11.9 Immature Gran % (Auto) 0.7 H Neut % (Auto) 60.0 Lymph % (Auto) 24.8 [place] % (Auto) 7.6 Eos % (Auto) 5.6 H Baso % (Auto) 1.3 Lymph # (Auto) 0.8 L [place] # (Auto) 0.2 Eos # (Auto) 0.2 Baso # (Auto) 0.0 Abs Immat Gran (auto) 0.02 Absolute Neuts (auto) 1.8 L Absolute Nucleated RBC 0.000 Nucleated RBC % (auto) 0.0 PT 15.9 H INR 1.3 H Anion Gap 10 L Estim Creat Clear Calc 31.9 Estimated GFR 28 Random Glucose 93 Calcium 9.0 D Magnesium 2.5 Total Bilirubin 0.6 Direct Bilirubin 0.2 AST 11 ALT 7 Alkaline Phosphatase 81 Troponin I High Sens 3.7 D B-Natriuretic Peptide 124 H Total Protein 6.0 L Albumin 3.6 Imaging Radiologist's Impressions: Impressions Chest X-Ray 01/29/24 15:18 IMPRESSION: No active cardiopulmonary disease. Venous Duplex 01/29/24 15:55 IMPRESSION: 1. Partially occlusive acute thrombus in the right popliteal vein. 2. No DVT seen in the left lower extremity. Pulmonary Perfusion Imaging 01/29/24 18:10 IMPRESSION: Low probability VQ scan. No fixed segmental or subsegmental defects. There is very mild heterogeneity to the distributed activity and note made of asymmetric elevation of the right hemidiaphragm as seen on the recent prior chest x-ray Assessment and Plan (1) Acute kidney injury superimposed on chronic kidney disease: Status: Acute (2) DVT (deep venous thrombosis): Qualifiers: Affected thrombotic vein of extremity: popliteal Chronicity: acute DVT location: lower extremity Laterality: right Qualified Code(s): I82.431 - Acute embolism and thrombosis of right popliteal vein Status: Acute Plan This is a 73-year-old male with pertinent history of bladder cancer with mets to pelvis, CKD stage 3, hypertension, mood disorder, asthma not on home O2, transitional cell carcinoma of left kidney, presence of urostomy who was sent to the emergency department for evaluation of leg swelling. #. Acute kidney injury on CKD stage 3: Patient given IV crystalloids in the ER. Monitor creatinine urine output. Avoid nephrotoxins #. Right lower extremity DVT: Question of noncompliance with Eliquis. Initiating Eliquis 10 mg b.i.d. x7 days followed by Eliquis 5 mg daily. Will need lifelong anticoagulation in the setting of underlying cancer #. Bladder cancer with Mets/transitional cell carcinoma of left kidney: On opioids p.r.n. for analgesia #. Hypertension: Hold ARB in the setting of ZINA #. Asthma: No exacerbation during admission Med rec pending DVT prophylaxis: Eliquis Full code. Discussed with patient at bedside Admit as inpatient and will require two night minimum hospital stay for close monitoring of kidney function (as above), which is not possible in a lesser acute setting. Quality Stroke Does the patient have a stroke diagnosis?: No VTE Prior VTE?: No VTE Risk Level:: Medical - moderate - high VTE Device Contraindication: Treatment Not Indicated VTE Drug Contraindication: N/A - Med Ordered
[2024-01-29] MEDS: traZODone HCL 100 MG TABLET PO (19:59)
[2024-01-29] MEDS: Morphine Sulfate ER 30 MG TABLET.ER PO (19:59)
[2024-01-29] MEDS: oxyCODONE HCl Immed Release 5 MG TABLET 20 MG PO (20:00)
[2024-01-29 20:41] VITALS: BP 173/94; PULSE 79; RESP 18; TEMP 36.9; O2SAT 94
[2024-01-29 20:50] LABS: Appearance Urine Cloudy; Color Urine Yellow; Glucose Urine UA Negative (Negative); Leukocyte Esterase Urine Large (3+) (Negative); Nitrite Urine Negative (Negative); PH 5.5 (5.0-9.0); UMIC TRIGGER UACC YES; Urine Blood Small (1+) (Negative); Urine Ketones Negative (Negative); Urine Protein 100 (2+) mg/dL (Neg-Trace)
--- NOTE | 2024-01-29 20:54 | PHA.MEDREC ---
Pharmacy Consult ? Medication Reconciliation Pharmacy has completed the medication reconciliation. Went to speak to patient about medications but patient was a bit distressed. Patient was here 01/11/24 and was able to use discharge packet to confirm medications.
[2024-01-29 21:11] LABS: Bacteria Urine Trace (None Seen); Squamous Epithelial Cell Urine 0-2 /HPF (0-2); UACC Culture Trigger YES; WBC Urine >50 /HPF (0-5)
--- NOTE | 2024-01-29 21:20 | PC.NURSE ---
pt urostomy bag changed, urine collected and sent to lab. pt given new hospital gown and warm blankets. needs met, resting comfortably, offers no current complaints. call sheikh within reach - will continue to monitor
--- NOTE | 2024-01-29 21:58 | MHC.EDTECH ---
Late Entry, this tech took over care of patient at 1900,hourly rounds and vitals completed, patient's nephrostomy was leaking, patient was cleaned and linen changed,belongings list completed,patient has money in wallet and refused to count RN Katarzyna at bedside and witnessed,call sheikh in reach
[2024-01-29] MEDS: Melatonin 3 MG TABLET 6 MG PO (23:56)
[2024-01-30] VITALS (7 sets, daily range): BP systolic 112–154; BP diastolic 51–67; PULSE 55–67; RESP 12–18; TEMP 36.2–36.9; O2SAT 91–96
--- NOTE | 2024-01-30 00:12 | MHC.EDTECH ---
Hourly rounds and vitals completed,emptied nephrostomy 250MLS of yellow urine,warm blankets given,call sheikh in reach
--- NOTE | 2024-01-30 03:50 | MHC.EDTECH ---
Hourly rounds and vitals completed,emptied 250MLS from nephrostomy,patient was repositioned to comfort,call sheikh in reach
[2024-01-30 04:59] LABS: Eosinophils Absolute Auto 0.2 X10*3/uL (0.0-0.4); Hemoglobin 9.2 g/dl (14.0-18.0); Imm Gran Abs Auto 0.01 X10*3/uL (0.00-0.03); Imm Gran Pct Auto 0.4 % (0.0-0.4); MANUAL DIFF FLAG SCAN; Mean Corpuscular Volume 93.5 fL (80.0-98.0); Monocytes Percent Auto 11.4 % (2-11); PLT CLUMP 1; SCAN SMEAR FLAG 1
[2024-01-30 05:01] LABS: Basophils Percent Auto 0.9 % (0-2); Eosinophils Percent Auto 8.3 % (0-4); Hematocrit 28.9 % (42.0-52.0); Lymphocytes Absolute Auto 0.7 X10*3/uL (1.2-4.9); Mean Corpuscular HGB Conc 31.8 g/dl (31.0-36.0); Mean Corpuscular Hemoglobin 29.8 pg (27.0-33.0); Mean Platelet Volume 12.6 fL (9.4-12.4); Monocytes Absolute Auto 0.3 X10*3/uL (0.1-1.2); Neutrophils Absolute Auto 1.1 x10*3/uL (2.0-8.3); Red Blood Count 3.09 X10*6/uL (4.60-5.80); Red Cell Distribution Width 14.5 % (11.0-16.0)
[2024-01-30 05:04] LABS: Platelet Count 75 X10*3/uL (160-400); White Blood Count 2.3 X10*3/uL (4.8-10.8)
[2024-01-30 05:13] LABS: Anion Gap 11 (12-20); Blood Urea Nitrogen 37 mg/dL (9-16); Calcium 8.4 mg/dL (8.4-10.2); Carbon Dioxide 24 mmol/L (22-29); Chloride 112 mmol/L (96-108); Creatinine Clr Calc Pharmacy 36.2; Estimated Glomerular Filt Rate 33; Glucose Random 94 mg/dL (60-115); Potassium 4.8 mmol/L (3.3-5.1); Sodium 142 mmol/L (135-145)
[2024-01-30 05:18] LABS: SLIDE REVIEW VERIFIED
[2024-01-30] MEDS: 0.9 % Sodium Chloride 1,000 ML 80 ML IVCONT ×2 (06:02→16:46)
--- NOTE | 2024-01-30 06:05 | PC.NURSE ---
pt continues to sleep comfortably on stretcher, respirations even and unlabored in no apparent distress. normal saline running at 80ml/hr per mar. call sheikh within reach, waiting for bed assignment upstairs. plan of care ongoing
--- NOTE | 2024-01-30 06:29 | MHC.EDTECH ---
Rounds and vitals completed,emptied 225MLS from nephrostomy,patient is resting comfortably call sheikh in reach
[2024-01-30] MEDS: Morphine Sulfate ER 30 MG TABLET.ER PO ×3 (08:51→19:53)
[2024-01-30] MEDS: Apixaban 5 MG TABLET 10 MG PO ×2 (08:51→19:53)
[2024-01-30] MEDS: oxyCODONE HCl Immed Release 5 MG TABLET 20 MG PO ×2 (08:53→14:27)
[2024-01-30] MEDS: 0.9 % Sodium Chloride Flush 3 ML SYRINGE IVFLUSH ×2 (08:54→16:47)
--- NOTE | 2024-01-30 08:57 | PC.NURSE ---
this RN resumed care of pt at 0645. a&ox4. vss and up to date. pt reporting 7/10 pain in his right leg - requesting medication. prn medication utilized. morning medication also utilized. pt requesting NC to be d/c'd so he can eat without cannula in the way - pt currently on RA - resting at 93%. no sob/wob noted. respirations even/unlabored. pt waiting for bed assignment at this time. plan of care ongoing. call sheikh placed within reach.
--- NOTE | 2024-01-30 09:33 | PC.NURSE ---
urostomy bag emptied - 400ml of clear/pale yellow urine noted/documented.
--- NOTE | 2024-01-30 14:40 | PC.NURSE ---
pt reporting increase in pain in RLE - PRN medication utilized. effectiveness pending. pt continues to rest in no apparent distress. sitting upright/eating lunch. respirations remain even/unlabored. plan of care ongoing.
--- NOTE | 2024-01-30 14:48 | PC.NURSE ---
admission worksheet complete.
--- NOTE | 2024-01-30 15:49 | HO.PM.IMPN ---
Subjective Subjective Date of Service: 01/30/24 Interval History: No acute issues overnight. Mild shortness of breath associated with his history of asthma Review of Systems Denies chest pain Admits shortness of breath at rest Denies nausea vomiting diarrhea Denies fever chills Physical Exam Vital Signs: Vital Signs: Last Vital Signs Temp 97.8 F 01/30/24 15:11 Pulse 67 01/30/24 15:11 Resp 12 01/30/24 15:11 BP 135/67 01/30/24 15:11 Pulse Ox 95 01/30/24 15:11 O2 Del Method Nasal Cannula 01/30/24 15:11 O2 Flow Rate 2 01/30/24 15:11 Oxygen Flow Rate 2 01/29/24 14:53 BMI result Body Mass Index 30.5 Const: Other: Awake alert vague Resp: Other: Scattered expiratory wheezes at bases Cardio: Other: No S4; positive S1-S2; no S3 murmurs rubs or gallops GI: Other: Soft nontender nondistended normoactive bowel sounds Extrem: Other: No edema bilaterally Objective Data Active Medications Acetaminophen (Acetaminophen 325 Mg Tablet) 650 mg PO Q6H PRN PRN Reason: Pain, Mild (Pain Scale 1-3), fever or headache Albuterol Sulfate (Albuterol Sulfate (0.083%) 2.5 Mg/3 Ml Vial.Neb) 2.5 mg INHALE Q4H PRN PRN Reason: Wheezing Apixaban (Apixaban 5 Mg Tablet) 10 mg PO BID [facility] Stop: 02/05/24 21:01 Last Admin: 01/30/24 08:51 Dose: 10 mg Documented By: ZONIA Calcium Carbonate (Calcium Carbonate 750 Mg Tab.Chew) 750 mg PO Q4H PRN PRN Reason: Heartburn Sodium Chloride (Ns) 1,000 mls @ 80 mls/hr IVCONT .[id number] [facility] Last Admin: 01/30/24 06:02 Dose: 80 mls/hr Documented By: ANY Magnesium Hydroxide (Milk Of Magnesia 30 Ml Oral.Susp) 30 ml PO DAILY PRN PRN Reason: Constipation Melatonin (Melatonin 3 Mg Tablet) 6 mg PO BEDTIME PRN PRN Reason: Insomnia Last Admin: 01/29/24 23:56 Dose: 6 mg Documented By: ANY Morphine Sulfate (Morphine Sulfate Er 30 Mg Tablet.Er) 30 mg PO Q12H [facility] Last Admin: 01/30/24 08:51 Dose: 30 mg Documented By: ZONIA Ondansetron HCl (Ondansetron Hcl 4 Mg/2 Ml Vial) 4 mg IVPUSH Q8H PRN PRN Reason: Nausea and Vomiting Oxycodone HCl (Oxycodone Hcl Immed Release 5 Mg Tablet) 20 mg PO Q4H PRN PRN Reason: Pain, Severe (Pain Scale 7-10) Last Admin: 01/30/24 14:27 Dose: 20 mg Documented By: ZONIA Sodium Chloride (0.9 % Sodium Chloride Flush 3 Ml Syringe) 3 ml IVFLUSH QSHIFT [facility] Last Admin: 01/30/24 08:54 Dose: 3 ml Documented By: ZONIA Trazodone HCl (Trazodone Hcl 100 Mg Tablet) 100 mg PO BEDTIME PRN PRN Reason: Insomnia Last Admin: 01/29/24 19:59 Dose: 100 mg Documented By: ANY Labs 01/30/24 04:41 01/30/24 04:41 Labs: Laboratory Results - last 24 hr 01/29/24 01/29/24 01/30/24 15:38 20:43 04:41 MCV 94.5 93.5 MCH 29.8 29.8 MCHC 31.6 31.8 RDW 14.6 14.5 Plt Count 94 L D 75 L MPV 11.9 12.6 H Immature Gran % (Auto) 0.7 H 0.4 Neut % (Auto) 60.0 48.0 Lymph % (Auto) 24.8 31.0 [place] % (Auto) 7.6 11.4 H Eos % (Auto) 5.6 H 8.3 H Baso % (Auto) 1.3 0.9 Lymph # (Auto) 0.8 L 0.7 L [place] # (Auto) 0.2 0.3 Eos # (Auto) 0.2 0.2 Baso # (Auto) 0.0 0.0 Abs Immat Gran (auto) 0.02 0.01 Absolute Neuts (auto) 1.8 L 1.1 L Absolute Nucleated RBC 0.000 0.000 Nucleated RBC % (auto) 0.0 0.0 Smear Tech's Comments VERIFIED PT 15.9 H INR 1.3 H Anion Gap 10 L 11 L Estim Creat Clear Calc 31.9 36.2 Estimated GFR 28 33 Random Glucose 93 94 Calcium 9.0 D 8.4 D Magnesium 2.5 Total Bilirubin 0.6 Direct Bilirubin 0.2 AST 11 ALT 7 Alkaline Phosphatase 81 Troponin I High Sens 3.7 D B-Natriuretic Peptide 124 H Total Protein 6.0 L Albumin 3.6 Urine Color Yellow Urine Appearance Cloudy Urine pH 5.5 Ur Specific [place] 1.010 Urine Protein 100 (2+) H Urine Glucose (UA) Negative Urine Ketones Negative Urine Blood Small (1+) H Urine Nitrite Negative Ur Leukocyte Esterase Large (3+) H Urine RBC 6-10 H Urine WBC >50 H Ur Squamous Epith Cells 0-2 Urine Bacteria Trace Hyaline Casts 3-5 Microbiology Microbiology Results: Microbiology 01/29/24 21:14 Urine Culture - Preliminary Urine clean catch - Clean Catch Midstream Gram negative lefty Assessment and Plan (1) Acute kidney injury superimposed on chronic kidney disease: Status: Acute (2) DVT (deep venous thrombosis): Status: Acute Plan This is a 73-year-old male with pertinent history of bladder cancer with mets to pelvis, CKD stage 3, hypertension, mood disorder, asthma not on home O2, transitional cell carcinoma of left kidney, presence of urostomy who was sent to the emergency department for evaluation of leg swelling. 1.Acute kidney injury/CKD stage 3 -likely secondary to volume repletion; replete -follow renals/divalents 2.Right lower extremity DVT - Eliquis 10 mg b.i.d. x7 days followed by Eliquis 5 mg daily -will need ongoing anticoagulation secondary to bladder cancer with metastatic disease 3.Bladder cancer with Mets/transitional cell carcinoma of left kidney -continue outpatient analgesic regimen -adjust as indicated 4. Hypertension -hold JOANA inhibitor -restart when clinically appropriate Eliquis Full code Requires ongoing hospitalization for volume repletion to reverse acute kidney injury Quality Stroke Does the patient have a stroke diagnosis?: No VTE Prior VTE?: No VTE Risk Level:: Medical - moderate - high VTE Device Contraindication: Treatment Not Indicated VTE Drug Contraindication: N/A - Med Ordered
--- NOTE | 2024-01-30 16:26 | MHC.CM.PN ---
PT REPORTS HE LIVES ALONE AND IS INDEPENDENT WITH CARE HE HAS NO SERVICES AND USES A WALKER AND CANE PRN PT HAS A HCP ON FILE PCP: DONNA BUSTOS IMM DELIVERED DCP: HOME WITH [facility] PT SAYS HE DID HAVE A [facility] CNMT, BUT DOES NOT KNOW THE AGENCY SON WILL TRANSPORT
[2024-01-30] MEDS: traZODone HCL 100 MG TABLET PO (19:53)
[2024-01-30] MEDS: Albuterol Sulfate 90 MCG 8 GM INHALER 2 PUFF INHALE (20:51)
[2024-01-31] MEDS: oxyCODONE HCl Immed Release 5 MG TABLET 20 MG PO ×3 (05:43→17:09)
[2024-01-31] MEDS: 0.9 % Sodium Chloride Flush 3 ML SYRINGE IVFLUSH ×3 (05:44→17:10)
[2024-01-31] MEDS: Morphine Sulfate ER 30 MG TABLET.ER PO ×4 (05:44→20:38)
--- NOTE | 2024-01-31 06:37 | PC.NURSE ---
Patient was upset the beginning of the shift because he stated he was waiting 2hrs for his inhaler. RN notified pharmacy to send up inhaler patient was still disgruntled, he was verbally aggressive and stated that he is leaving AMA. MD Macias made aware that patient wanted to leave AMA . Patient then changed his mind but remained uncooperative with staff, kicking staff out of his room. Vitals and assessments were not able to be done.
--- NOTE | 2024-01-31 06:41 | PC.NURSE ---
Patient neuro assessment done at shift change he is alert and oriented to self, place and year. Speech is clear , no facial drop noted. Patient follows all commands. Patient moves all extremities strong and equal . He complains of dizziness and blurry vision along with hearing impairment to the right ear. Patient denies headache pain, numbness and tingaling and other neuro deficits. Lung sounds are clear, abdomen is round non tender. Patient uses the urinal at the bedside and he takes his medications whole with thin liquids. Please see assessments for more details.
[2024-01-31 07:04] VITALS: BP 141/65; PULSE 60; RESP 18; TEMP 36.6; O2SAT 92
[2024-01-31] MEDS: amLODIPine Besylate 10 MG TABLET PO (08:08)
[2024-01-31] MEDS: Apixaban 5 MG TABLET 10 MG PO ×2 (08:08→20:38)
[2024-01-31] MEDS: Losartan Potassium 25 MG TABLET PO (08:08)
[2024-01-31] MEDS: Sertraline HCL 50 MG TABLET PO (08:08)
--- NOTE | 2024-01-31 08:29 | MHC.CM.PN ---
Addendum entered by Jena Hollis 01/31/24 09:42: Patient is active with [facility]. Addendum entered by Jena Hollis 01/31/24 09:36: Patient was active with [facility] in 2021, but not currently. CM awaits a return call from PCP's office (Dr. Nelson Pineda @ Ext. [phone]) with the name of the current VNA. CM will follow. Original Note: CM met with Patient at bedside and addressed IMM with him, original was given to Patient and a copy has been placed on the chart. Patient lives in an apartment, part of the [facility] and he uses both a cane and a walker to assist with mobility. Patient is active with [facility] and home/resume said services is the goal. CM has initiated and will follow for dc planning. PCP is Dr. Nelson Pineda and the HCP is Son/Cj.
[2024-01-31 08:58] LABS: MANUAL DIFF FLAG NO
[2024-01-31 09:05] LABS: Basophils Percent Auto 0.6 % (0-2); Eosinophils Absolute Auto 0.2 X10*3/uL (0.0-0.4); Hematocrit 32.4 % (42.0-52.0); Hemoglobin 10.2 g/dl (14.0-18.0); Imm Gran Abs Auto 0.01 X10*3/uL (0.00-0.03); Imm Gran Pct Auto 0.3 % (0.0-0.4); Lymphocytes Absolute Auto 0.8 X10*3/uL (1.2-4.9); Lymphocytes Percent Auto 25.4 % (20-40); Mean Corpuscular HGB Conc 31.5 g/dl (31.0-36.0); Mean Corpuscular Hemoglobin 29.5 pg (27.0-33.0); Mean Corpuscular Volume 93.6 fL (80.0-98.0); Mean Platelet Volume 12.8 fL (9.4-12.4); Monocytes Absolute Auto 0.3 X10*3/uL (0.1-1.2); Monocytes Percent Auto 8.5 % (2-11); Neutrophils Absolute Auto 1.9 x10*3/uL (2.0-8.3); Neutrophils Percent Auto 59.2 % (45-73); Red Blood Count 3.46 X10*6/uL (4.60-5.80); Red Cell Distribution Width 14.2 % (11.0-16.0); White Blood Count 3.2 X10*3/uL (4.8-10.8)
[2024-01-31 09:06] LABS: Platelet Count 89 X10*3/uL (160-400)
[2024-01-31 09:21] LABS: Alanine Aminotransferase 5 U/L (0-40); Albumin Level 3.5 g/dL (3.5-5.0); Alkaline Phosphatase 80 U/L (39-117); Anion Gap 10 (12-20); Aspartate Amino Transferase 10 U/L (5-37); Bilirubin Total 0.6 mg/dL (0.0-1.0); Blood Urea Nitrogen 28 mg/dL (9-16); Calcium 8.6 mg/dL (8.4-10.2); Carbon Dioxide 28 mmol/L (22-29); Chloride 110 mmol/L (96-108); Creatinine Clr Calc Pharmacy 44.6; Estimated Glomerular Filt Rate 42; Glucose Fasting 114 mg/dL (60-99); Potassium 4.6 mmol/L (3.3-5.1); Sodium 143 mmol/L (135-145); Total Protein 5.9 g/dL (6.5-8.0)
--- NOTE | 2024-01-31 14:55 | P.PNIM_ITS ---
Subjective Subjective Date of Service: 01/31/24 Interval History: No acute issues overnight. Compliant with therapies Review of Systems Denies chest pain Admits shortness of breath at rest Denies nausea vomiting diarrhea Denies fever chills Physical Exam 2 Vital Signs: Vital Signs: Last Vital Signs Temp 97.9 F 01/31/24 07:04 Pulse 60 01/31/24 07:04 Resp 18 01/31/24 07:04 BP 141/65 H 01/31/24 07:04 Pulse Ox 92 01/31/24 07:04 O2 Del Method Room Air 01/31/24 07:04 O2 Flow Rate 2 01/30/24 15:11 Oxygen Flow Rate 2 01/29/24 14:53 BMI result Body Mass Index 30.5 Const: Other: Awake alert vague Resp: Other: Scattered expiratory wheezes at bases Cardio: Other: No S4; positive S1-S2; no S3 murmurs rubs or gallops GI: Other: Soft nontender nondistended normoactive bowel sounds Extrem: Other: No edema bilaterally Objective Data Active Medications Acetaminophen (Acetaminophen 325 Mg Tablet) 650 mg PO Q6H PRN PRN Reason: Pain, Mild (Pain Scale 1-3), fever or headache Albuterol Sulfate (Albuterol Sulfate (0.083%) 2.5 Mg/3 Ml Vial.Neb) 2.5 mg INHALE Q4H PRN PRN Reason: Wheezing Albuterol Sulfate (Albuterol Sulfate 90 Mcg 8 Gm Inhaler) 2 puff INHALE Q4H PRN PRN Reason: for wheezing Last Admin: 01/30/24 20:51 Dose: 2 puff Documented By: SHERLY Amlodipine Besylate (Amlodipine Besylate 10 Mg Tablet) 10 mg PO DAILY [facility]; Protocol Last Admin: 01/31/24 08:08 Dose: 10 mg Documented By: DEBO Apixaban (Apixaban 5 Mg Tablet) 10 mg PO BID [facility] Stop: 02/05/24 21:01 Last Admin: 01/31/24 08:08 Dose: 10 mg Documented By: DEBO Calcium Carbonate (Calcium Carbonate 750 Mg Tab.Chew) 750 mg PO Q4H PRN PRN Reason: Heartburn Sodium Chloride (Ns) 1,000 mls @ 80 mls/hr IVCONT .[id number] [facility] Last Admin: 01/31/24 05:48 Dose: Not Given Documented By: SHERLY Non-Admin Reason: Patient Refused Losartan Potassium (Losartan Potassium 25 Mg Tablet) 25 mg PO DAILY [facility]; Protocol Last Admin: 01/31/24 08:08 Dose: 25 mg Documented By: DEBO Magnesium Hydroxide (Milk Of Magnesia 30 Ml Oral.Susp) 30 ml PO DAILY PRN PRN Reason: Constipation Melatonin (Melatonin 3 Mg Tablet) 6 mg PO BEDTIME PRN PRN Reason: Insomnia Last Admin: 01/29/24 23:56 Dose: 6 mg Documented By: ANY Morphine Sulfate (Morphine Sulfate Er 30 Mg Tablet.Er) 30 mg PO Q12H [facility] Last Admin: 01/31/24 08:07 Dose: 30 mg Documented By: DEBO Morphine Sulfate (Morphine Sulfate Er 30 Mg Tablet.Er) 30 mg PO Q12H [facility] Last Admin: 01/31/24 05:44 Dose: 30 mg Documented By: SHERLY Ondansetron HCl (Ondansetron Hcl 4 Mg/2 Ml Vial) 4 mg IVPUSH Q8H PRN PRN Reason: Nausea and Vomiting Oxycodone HCl (Oxycodone Hcl Immed Release 5 Mg Tablet) 20 mg PO Q4H PRN PRN Reason: Pain, Severe (Pain Scale 7-10) Last Admin: 01/31/24 11:57 Dose: 20 mg Documented By: DEBO Oxycodone HCl (Oxycodone Hcl Immed Release 5 Mg Tablet) 20 mg PO Q4H PRN PRN Reason: SEVERE PAIN Sertraline HCl (Sertraline Hcl 50 Mg Tablet) 50 mg PO DAILY [facility] Last Admin: 01/31/24 08:08 Dose: 50 mg Documented By: DEBO Sodium Chloride (0.9 % Sodium Chloride Flush 3 Ml Syringe) [facility] Last Admin: 01/31/24 08:08 Dose: 3 ml Documented By: DEBO Trazodone HCl (Trazodone Hcl 100 Mg Tablet) 100 mg PO BEDTIME PRN PRN Reason: Insomnia Last Admin: 01/30/24 19:53 Dose: 100 mg Documented By: SHERLY Trazodone HCl (Trazodone Hcl 100 Mg Tablet) 100 mg PO BEDTIME PRN PRN Reason: sleep Labs 01/31/24 08:44 01/31/24 08:44 Labs: Laboratory Results - last 24 hr 01/31/24 08:44 MCV 93.6 MCH 29.5 MCHC 31.5 RDW 14.2 Plt Count 89 L MPV 12.8 H Immature Gran % (Auto) 0.3 Neut % (Auto) 59.2 Lymph % (Auto) 25.4 [place] % (Auto) 8.5 Eos % (Auto) 6.0 H Baso % (Auto) 0.6 Lymph # (Auto) 0.8 L [place] # (Auto) 0.3 Eos # (Auto) 0.2 Baso # (Auto) 0.0 Abs Immat Gran (auto) 0.01 Absolute Neuts (auto) 1.9 L Absolute Nucleated RBC 0.000 Nucleated RBC % (auto) 0.0 Anion Gap 10 L Estim Creat Clear Calc 44.6 Estimated GFR 42 Fasting Glucose 114 H Calcium 8.6 Total Bilirubin 0.6 AST 10 ALT 5 Alkaline Phosphatase 80 Total Protein 5.9 L Albumin 3.5 Microbiology Microbiology Results: Microbiology 01/29/24 21:14 Urine Culture - Preliminary Urine clean catch - Clean Catch Midstream Klebsiella pneumoniae Assessment and Plan (1) Acute kidney injury superimposed on chronic kidney disease: Status: Acute (2) DVT (deep venous thrombosis): Status: Acute Plan This is a 73-year-old male with pertinent history of bladder cancer with mets to pelvis, CKD stage 3, hypertension, mood disorder, asthma not on home O2, transitional cell carcinoma of left kidney, presence of urostomy who was sent to the emergency department for evaluation of leg swelling. 1.Acute kidney injury/CKD stage 3 -likely secondary to volume repletion; replete -follow renals/divalents 2.Right lower extremity DVT - Eliquis 10 mg b.i.d. x7 days followed by Eliquis 5 mg daily.. Patient's insurance will cover -will need ongoing anticoagulation secondary to bladder cancer with metastatic disease 3.Bladder cancer with Mets/transitional cell carcinoma of left kidney -continue outpatient analgesic regimen -adjust as indicated 4. Hypertension -hold JOANA inhibitor -restart when clinically appropriate Eliquis Full code Requires ongoing hospitalization for volume repletion to reverse acute kidney injury Quality Stroke Does the patient have a stroke diagnosis?: No VTE Prior VTE?: No VTE Risk Level:: Medical - moderate - high VTE Device Contraindication: Treatment Not Indicated VTE Drug Contraindication: N/A - Med Ordered
[2024-01-31 15:37] VITALS: BP 126/62; PULSE 57; RESP 12; TEMP 37.2; O2SAT 93
[2024-01-31 19:22] VITALS: BP 148/62; PULSE 98; RESP 12; TEMP 37.3; O2SAT 92
[2024-01-31] MEDS: traZODone HCL 100 MG TABLET PO (20:38)
[2024-01-31] MEDS: Melatonin 3 MG TABLET 6 MG PO (20:38)
[2024-02-01 03:36] VITALS: BP 128/56; PULSE 57; RESP 20; TEMP 36.5; O2SAT 92
[2024-02-01] MEDS: Morphine Sulfate ER 30 MG TABLET.ER PO ×2 (05:26→07:58)
[2024-02-01] MEDS: oxyCODONE HCl Immed Release 5 MG TABLET 20 MG PO (05:32)
[2024-02-01 06:24] LABS: MANUAL DIFF FLAG NO
[2024-02-01 06:31] LABS: Basophils Percent Auto 0.6 % (0-2); Eosinophils Absolute Auto 0.3 X10*3/uL (0.0-0.4); Eosinophils Percent Auto 8.4 % (0-4); Hematocrit 32.8 % (42.0-52.0); Hemoglobin 10.4 g/dl (14.0-18.0); Imm Gran Abs Auto 0.02 X10*3/uL (0.00-0.03); Imm Gran Pct Auto 0.6 % (0.0-0.4); Lymphocytes Absolute Auto 0.9 X10*3/uL (1.2-4.9); Lymphocytes Percent Auto 27.4 % (20-40); Mean Corpuscular HGB Conc 31.7 g/dl (31.0-36.0); Mean Corpuscular Hemoglobin 29.8 pg (27.0-33.0); Monocytes Absolute Auto 0.3 X10*3/uL (0.1-1.2); Monocytes Percent Auto 8.1 % (2-11); Neutrophils Absolute Auto 1.8 x10*3/uL (2.0-8.3); Neutrophils Percent Auto 54.9 % (45-73); Red Blood Count 3.49 X10*6/uL (4.60-5.80); Red Cell Distribution Width 14.2 % (11.0-16.0); White Blood Count 3.2 X10*3/uL (4.8-10.8)
[2024-02-01 06:32] LABS: Platelet Count 77 X10*3/uL (160-400)
[2024-02-01 06:54] LABS: Alanine Aminotransferase 6 U/L (0-40); Albumin Level 3.6 g/dL (3.5-5.0); Alkaline Phosphatase 81 U/L (39-117); Anion Gap 10 (12-20); Aspartate Amino Transferase 10 U/L (5-37); Bilirubin Total 0.7 mg/dL (0.0-1.0); Blood Urea Nitrogen 27 mg/dL (9-16); Calcium 9.2 mg/dL (8.4-10.2); Carbon Dioxide 28 mmol/L (22-29); Chloride 109 mmol/L (96-108); Estimated Glomerular Filt Rate 41; Glucose Fasting 100 mg/dL (60-99); Potassium 4.6 mmol/L (3.3-5.1); Sodium 142 mmol/L (135-145); Total Protein 6.2 g/dL (6.5-8.0)
[2024-02-01 07:26] VITALS: BP 119/60; PULSE 51; RESP 18; TEMP 36.4; O2SAT 92
[2024-02-01] MEDS: 0.9 % Sodium Chloride Flush 3 ML SYRINGE IVFLUSH ×2 (07:57→15:02)
[2024-02-01] MEDS: Apixaban 5 MG TABLET 10 MG PO (07:58)
[2024-02-01] MEDS: Sertraline HCL 50 MG TABLET PO (07:59)
[2024-02-01] MEDS: Losartan Potassium 25 MG TABLET PO (07:59)
[2024-02-01] MEDS: amLODIPine Besylate 10 MG TABLET PO (07:59)
--- NOTE | 2024-02-01 10:25 | MHC.CM.PN ---
PT WILL DC HOME TODAY WITH [facility] TO TRANSPORT
[2024-02-01 11:16] VITALS: BP 128/60; PULSE 64; RESP 20; TEMP 36.7; O2SAT 92
--- NOTE | 2024-02-01 11:26 | P.DS_ITS ---
DS: Providers Provider Date of Service: 02/01/24 Date of admission: 01/29/24 19:41 Date of discharge: 02/01/24 Primary care physician: Nelson Pineda MD DS: Diagnosis Discharge Diagnosis (1) Acute kidney injury superimposed on chronic kidney disease: Status: Acute (2) DVT (deep venous thrombosis): Status: Acute DS: Summary Hospital Course Hospital Course: 73-year-old male with pertinent history of bladder cancer with mets to pelvis, CKD stage 3, hypertension, mood disorder, asthma not on home O2, transitional cell carcinoma of left kidney, presence of urostomy who was sent to the emergenc y department for evaluation of leg swelling. Patient states [facility] at home noticed that the leg was swollen and send the patient to the ER for further evaluation. Patient was diagnosed with right leg DVT about 6-7 days ago but there reports of noncompliance with Eliquis. Patient states vaguely that he has been taking Eliquis for the last 2 days, unknown dose or frequency. No fever, chills, chest discomfort, palpitations, shortness of breath, abdominal pain, changes in urinary or bowel habits. Of note, the patient was recently admitted on 01/06 with acute encephalopathy due to UTI with E coli bacteremia and ZINA and discharged on 01/10 with p.o. Ceftin and doxycycline. In the emergency department, imaging with partially occlusive acute thrombus in the right popliteal vein. Creatinine found to be elevated. Hospital Course Patient was admitted to telemetry where monitor failed to demonstrate an acute dysrhythmia. He was maintained on Eliquis 10 mg b.i.d. while admitted. A venous duplex was done of his right lower extremity which demonstrated partially occluded thrombus right popliteal artery. Given his renal status a V/Q scan was performed which failed to demonstrate pulmonary emboli. At this point in time he is medically acceptable to be discharged to home. Long discussion with son about the importance of compliance with therapies in the backdrop of transitional cell carcinoma of the left kidney. [facility] has been asked to see patient to help with compliance. Time Attestation Discharge Coordination Time (in mins): 35 Quality: Safe Use of Opioids Does Pt have an Active Cancer Diagnosis on the Problem List?: Yes Opioid Measure Date for [facility] Report: 01/02/24 Opioid Measure Time for [facility] Report: 11:29 Quality: Stroke Does the patient have a stroke diagnosis?: No Physical Exam Vital Signs: Vital Signs: Last Vital Signs Temp 98.1 F 02/01/24 11:16 Pulse 64 02/01/24 11:16 Resp 20 02/01/24 11:16 BP 128/60 02/01/24 11:16 Pulse Ox 92 02/01/24 11:16 O2 Del Method Room Air 02/01/24 11:16 O2 Flow Rate 2 01/30/24 15:11 Oxygen Flow Rate 2 01/29/24 14:53 BMI result Body Mass Index 30.5 Const: Other: Awake alert vague Resp: Other: Scattered expiratory wheezes at bases Cardio: Other: No S4; positive S1-S2; no S3 murmurs rubs or gallops GI: Other: Soft nontender nondistended normoactive bowel sounds Extrem: Other: No edema bilaterally DS: Data Data Completed and Pending Completed studies during hospitalization [Text1]: Procedures Dilation of Right Ureter with Intraluminal Device, Via Natural or Artificial Opening Endoscopic (05/19/21) Extirpation of Matter from Right Ureter, Via Natural or Artificial Opening Endoscopic (05/19/21) Labs on day of discharge: Laboratory Results - last 24 hr 02/01/24 05:53 WBC 3.2 L RBC 3.49 L Hgb 10.4 L Hct 32.8 L MCV 94.0 MCH 29.8 MCHC 31.7 RDW 14.2 Plt Count 77 L MPV 13.0 H Immature Gran % (Auto) 0.6 H Neut % (Auto) 54.9 Lymph % (Auto) 27.4 [place] % (Auto) 8.1 Eos % (Auto) 8.4 H Baso % (Auto) 0.6 Lymph # (Auto) 0.9 L [place] # (Auto) 0.3 Eos # (Auto) 0.3 Baso # (Auto) 0.0 Abs Immat Gran (auto) 0.02 Absolute Neuts (auto) 1.8 L Absolute Nucleated RBC 0.000 Nucleated RBC % (auto) 0.0 Sodium 142 Potassium 4.6 Chloride 109 H Carbon Dioxide 28 Anion Gap 10 L BUN 27 H Creatinine 1.66 H Estim Creat Clear Calc 44.0 Estimated GFR 41 Fasting Glucose 100 H Calcium 9.2 D Total Bilirubin 0.7 AST 10 ALT 6 Alkaline Phosphatase 81 Total Protein 6.2 L Albumin 3.6 Discharge Plan Discharge Anticipated Discharge Date/Time: 02/01/24 11:10 Patient Disposition: Home Health Service Discharge Diagnosis: ZINA on CKD Referrals: Nelson Pineda MD [Primary Care Provider] - 1 Week Discharge Medications: New Eliquis 5 mg tablet 10 mg PO BID 5 Days Qty: 20 0RF Continued (DME) Visi-Flow Loading Dock Hand-Stoma Cone Misc See Rx Instructions .Route Qty: 1 5RF Rx Instructions: As directed albuterol sulfate [Ventolin HFA] 90 mcg/actuation HFA aerosol inhaler 2 puff inhalation Q4H PRN (Reason: for wheezing) Qty: 18 0RF amlodipine 5 mg tablet 10 mg PO DAILY Qty: 90 1RF trazodone 100 mg tablet 100 mg PO BEDTIME PRN (Reason: sleep) Qty: 30 2RF sertraline 50 mg tablet 50 mg PO DAILY 30 Days Qty: 30 2RF losartan 25 mg tablet 25 mg PO DAILY Qty: 30 0RF morphine 30 mg tablet extended release 30 mg PO Q12H Qty: 20 0RF oxycodone 20 mg tablet 20 mg PO Q4H PRN (Reason: SEVERE PAIN) Qty: 20 0RF Discharge Orders: Discharge Order (Routine); Ordered 02/01/24 Ordered By: Esteban Benavidez Diet: Advance to usual diet Activity on Discharge: As tolerated Stand Alone Forms: Patient Portal Discharge page Print Language: Portuguese Care Plan Goals: Complete Eliquis 2 tabs twice a day for 5 days. He has been sent home with a script for Eliquis 1 tab twice a day to fill after the initial is gone. It is very important that you take this med faithfully Health Concerns: CY will come in to help you set up your medicine and establish routine in which she will remember to take your meds daily Plan of Treatment: Resume all pre-hospital medications and follow up with PCP next available Assessment: See discharge summary
--- NOTE | 2024-02-01 13:41 | P.F2F_ITS ---
Service Date Service Date: 02/01/24 Encounter Date of encounter: 02/01/24 Encounter: Acute hospitalization Reasons for Services Signs and symptoms assessed: Med compliance and assess lower extremity Reason for nursing home: medication management and teach disease management Homebound: Leaving the home is medically contraindicated at this time without the asist of a device and/or another person due th the listed conditions above and below. Reason homebound: unsteady gait / fall risk and unable to drive Certification: Based on the above findings, I certify that this patient is confined to the home and needs intermittent nursing home care, physical therapy and/or speech therapy, or continues to need occupational therapy. The patient is under my care, and I have initiated the establishment of the plan of care. The patient will be followed by a physician who will periodically review the plan of care. Time Spent With Patient Time: Total time managing care of this patient today ____ minutes.
[2024-02-01 15:41] LABS: Glucose, Whole Blood 137 mg/dL (60-115)
[2024-02-01 15:52] VITALS: BP 117/57; PULSE 79; RESP 18; TEMP 36.8; O2SAT 93
== END 2024-02-01 16:51 | disposition home health service (06) | DRG 683 ==
LOC: HO.ED 16:57 → HO.EDOVER 19:46 → HO.IMC 01-30 14:42
PROVIDERS: Admitting Provider Student in an Organized Health Care Education/Training Program; Emergency Provider Emergency Medicine; PCP Internal Medicine; Visit Provider Hospitalist
DX: N17.9 Acute kidney failure, unspecified (principal); I82.431 Acute embolism and thrombosis of right popliteal vein; I12.9 Hypertensive chronic kidney disease with stage 1 through stage 4 chronic kidney disease, or unspecified chronic kidney disease; N18.30 Chronic kidney disease, stage 3 unspecified; J45.909 Unspecified asthma, uncomplicated; C67.9 Malignant neoplasm of bladder, unspecified; Z85.528 Personal history of other malignant neoplasm of kidney; Z91.148 Patient's other noncompliance with medication regimen for other reason; Z93.6 Other artificial openings of urinary tract status; Z90.5 Acquired absence of kidney; Z79.01 Long term (current) use of anticoagulants; Z79.899 Other long term (current) drug therapy
CPT/HCPCS: 36415; 71045; 78580; 80048; 80053; 80076; 81001; 82947; 83735; 83880; 84484; 85025; 85610; 87086; 87088; 87186; 93005; 93970; 99285; A9540

== ENCOUNTER → 2024-01-29 14:58 | Outpatient (BNV) | payer MEDICARE, SELFPAY | PROVIDERS: Admitting Provider Student in an Organized Health Care Education/Training Program; Emergency Provider Emergency Medicine; PCP Internal Medicine; Visit Provider Internal Medicine Cardiovascular Disease | DX: R94.31 Abnormal electrocardiogram [ECG] [EKG] (principal) | CPT/HCPCS: 93010 ==

== ENCOUNTER → 2024-01-29 19:41 | Outpatient (BNV) | payer MEDICARE, SELFPAY | PROVIDERS: Admitting Provider Student in an Organized Health Care Education/Training Program; Emergency Provider Emergency Medicine; PCP Internal Medicine; Visit Provider Student in an Organized Health Care Education/Training Program | DX: N17.9 Acute kidney failure, unspecified (principal); N18.9 Chronic kidney disease, unspecified; I82.431 Acute embolism and thrombosis of right popliteal vein | CPT/HCPCS: 99223; 99232; 99239; G0180 ==

== ENCOUNTER 2024-02-05 16:19 | Outpatient (AMB) | payer MEDICARE, SELFPAY ==
--- NOTE | 2024-02-05 16:48 | MHC.PC.OV ---
Vital Signs 02/05/24 16:50 Height 5 ft 8 in Weight 196 lb 3.382 oz BMI 29.8 BP 118/58 L Blood Pressure Location Lt brachial Position Sitting Pulse 80 Pulse Source Pulse Oximeter Pulse Oximetry (%) 94 Oxygen Delivery Method Room Air Intake Visit Reasons: dcf Identity Management Developer Required: No Accompanied by: Son Allergies piperacillin [From ZOSYN] Allergy (Intermediate, Verified 02/05/24 17:09) REDNESS/WARMTH TO IV SITE. tazobactam [From ZOSYN] Allergy (Intermediate, Verified 02/05/24 17:09) REDNESS/WARMTH TO IV SITE. ibuprofen Allergy (Unknown, Verified 02/05/24 17:09) Unknown lamotrigine [Lamictal] Allergy (Unknown, Verified 02/05/24 17:09) Unknown Anti-Inflammatory Enzyme Allergy (Unknown, Uncoded 02/05/24 17:09) rash on both legs Medication List - Last Reconciled 02/05/24 by Nelson Pineda MD albuterol sulfate 90 mcg/actuation (Ventolin HFA) 2 puffs inhalation Q4H PRN amlodipine 10 mg (2 x 5 mg) PO DAILY apixaban (Eliquis) 10 mg (2 x 5 mg) PO BID 5 days losartan 25 mg PO DAILY morphine ER 30 mg PO Q12H ostomy supplies ([employer] misc) As directed oxycodone 20 mg PO Q4H PRN sertraline 50 mg PO DAILY 30 days trazodone 100 mg PO BEDTIME PRN Tobacco use date assessed: 07/25/23 Fall risk assessment: No Falls in past year Last assessed Fall Risk: 02/05/24 Dental Screening Dental Screen Date: 07/25/23 HPI dcf HPI Details Patient comes in today for his HDF follow up visit He was admitted to [facility] for a few days last week after he was sent to the ER by [facility] for increased right leg swelling Work ups done revealed (+) right leg DVT and he was started on Eliquis, initially at 10 mg BID, but he is now reportedly down to his maintenance dose of 5 mg BID He was also noted to have ZINA at the time, with his GFR significantly declined from his baseline although his repeat labs at the time of discharged showed that his GFR and renal function has returned to his baseline (stage 3 CKD) His son admitted that patient has a habit of drinking sodas and coffee all day long if he has his way and hardly drinks any water Patient states that he currently feels okay He denies any headaches or dizziness Denies any chest pains, no increased SOB No nausea/vomiting, no abdominal pain No change in bowel habits noted States that he will need his Eliquis Rx refilled if he is to continue on the Rx [facility] Medical History Overweight (BMI 25.0-29.9) Presence of urostomy CKD (chronic kidney disease), stage III Hematuria Hyperkalemia Hypertension, uncontrolled Hydronephrosis Urinary tract infection Acute renal failure Hypertension Bipolar disorder Acute kidney injury Dermatitis 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 Pruritic erythematous rash Anemia Obesity (BMI 30-39.9) Insomnia Lumbar degenerative disc disease Type 2 diabetes mellitus with diabetic chronic kidney disease Benign essential hypertension Chronic kidney disease (CKD), stage III (moderate) Hematuria Metabolic encephalopathy HLD (hyperlipidemia) Bladder cancer Asthma HTN (hypertension) Surgical History History of urinary diversion procedure Hx of total cystectomy (~08/03/21) History of left nephrectomy (~11/29/20) History of cystoscopy History of bladder surgery Family History Father Hypertension CVD (cardiovascular disease) Mother No problems noted. Social History Household Members: None Housing: Apartment Do you presently have visiting nurse or other home services: No Unable to assess alcohol history related to: Refusing to respond Alcohol intake: former Comment: pt refuses alarm Patient Tobacco Use Status: Never used Tobacco e-Cigarette/Vaping Use: Never Used Second Hand Smoke Exposure: No Advance Directives Date on File: 11/17/21 service: No Current occupational status: retired and disabled Cognitive needs: No Hearing needs: No Vision needs: No Questionnaire Thrive Questionnaire Date Thrive assessed: 01/31/24 CELSA-7 AMB Questionnaire CELSA-7 Date CELSA - 7 assessed: 01/25/24 Source: Developed by Drs. Con Turcios, Shaista Silveira, Bryson Gutierrez and colleagues, with an educational greer from [employer]. Review of Systems Const Denies chills, Reports fatigue, Denies fever(s) and Denies headache(s) ENT Denies dysphagia, Denies dizziness, Denies otalgia, Denies headache(s), Reports neck pain (recurrent), Denies odynophagia and Denies sore throat Card Denies chest pain, Denies palpitations and Denies dyspnea Resp Denies cough and Denies dyspnea GI Denies abdominal pain, Denies constipation, Denies dysphagia, Denies heartburn, Denies diarrhea, Denies nausea, Denies odynophagia and Denies vomiting Details: (+) permanent ostomy with bag Reports hematuria (on and off) Musc Reports back pain (over the lumbar spine - chronic), Reports arthralgias (involving multiple joints) and Reports neck pain (recurrent) Skin/Breast Denies rash Neuro Denies dizziness and Denies headache(s) Psych Reports depression Endo Reports fatigue and Denies palpitations Santiago/Lymph Denies easy bruising Physical exam (Primary Care) Vital Signs: Last Vital Signs Pulse 80 02/05/24 16:50 BP 118/58 L 02/05/24 16:50 Pulse Ox 94 02/05/24 16:50 Oxygen Delivery Method Room Air 02/05/24 16:50 BMI result Body Mass Index 29.8 Tobacco/Smoking Status: Tobacco use Status Tobacco use date assessed 07/25/23 02/05/24 16:57 Patient Tobacco Use Status Never used Tobacco 02/05/24 16:57 e-Cigarette/Vaping Use Never Used 02/05/24 16:57 Thrive Assessment: Date of Thrive Assessment Date Thrive assessed 01/31/24 02/05/24 16:57 Const General: no acute distress and alert HENMT Ears: TM's normal bilaterally and EAC's normal Throat: Yes posterior oropharynx normal and Yes tonsils normal (no TP congestion) Neck Neck: Yes no lymphadenopathy and Yes supple Thyroid: Thyroid normal Resp Auscultation: clear to auscultation bilaterally, no rales and no wheezes Cardio Rate: regular rate Rhythm: regular rhythm Heart sounds: no murmurs GI Other: (+) permanent ostomy over the suprapubic area Palpation (GI): Soft to palpation and nontender Auscultation: normal bowel sounds General: Yes no CVA tenderness Back/Spine/Pelvis Back: no CVA tenderness Cervical Spine: Cervical spine tenderness Thoracic/Lumbar Spine: lumbar spinal tenderness Skin Rashes: no rashes Extrem General: No clubbing, No cyanosis and Yes edema (over the right leg) Results Reviewed Results Reviewed: Laboratory Tests 01/29/24 02/01/24 15:38 05:53 WBC 3.2 L Hgb 10.4 L Hct 32.8 L Plt Count 77 L Sodium 142 Potassium 4.6 Creatinine 2.29 H 1.66 H Estimated GFR 28 41 Fasting Glucose 100 H Calcium 9.2 D Magnesium 2.5 AST 10 ALT 6 B-Natriuretic Peptide 124 H Assessment and Plan Assessment & Plan (1) DVT (deep venous thrombosis): Code(s): I82.409 - Acute embolism and thrombosis of unspecified deep veins of unspecified lower extremity Qualifiers: Affected thrombotic vein of extremity: popliteal Chronicity: acute DVT location: lower extremity Laterality: right Qualified Code(s): I82.431 - Acute embolism and thrombosis of right popliteal vein Plan: Venous duplex of the right lower extremity revealed (+) partially occluded thrombus in the right popliteal artery He also had telemetry monitoring while he was at the hospital last week, which did not reveal any acute dysrhythmias V/Q scan also did not demonstrate any pulmonary emboli Continue Eliquis 5 mg BID - Rx refilled (2) Chronic kidney disease (CKD), stage III (moderate): Code(s): N18.30 - Chronic kidney disease, stage 3 unspecified Qualifiers: Chronic kidney disease stage 3 subtype: unspecified whether 3a or 3b Qualified Code(s): N18.30 - Chronic kidney disease, stage 3 unspecified Plan: Patient apparently suffered ZINA last week when he was admitted - his renal function at the time was in Stage 4 CKD His renal function has since improved and has reverted back to his baseline stage 3 CKD He was seen by nephrology a couple of years ago but has not seen them since Will refer him to nephrology here at [facility] for follow up and continuing management (3) Bladder carcinoma: Comment: currently on Enfortumab vedotin plus Pembrolizumab - initiated in March 2023 Code(s): C67.9 - Malignant neoplasm of bladder, unspecified Plan: Patient was diagnosed with 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, pN0 He underwent complete bladder cystectomy with ureteroileal conduit on 08/03/2021 He was seen by oncology and advised against chemotherapy, as he was reportedly told that he was not a good candidate for chemoTx CT abdomen and pelvis in November 2021 showed no evidence of metastatic disease BUT follow up CT done sometime in the summer of 2022 revealed (+) worsening adenopathy concerning for recurrent disease He was seen by oncology and ultimately was diagnosed with metastatic transitional cell carcinoma He apparently started receiving immunotherapy sometime in March 2023 for stage 4 bladder cancer Follow up with urology and oncology as scheduled (4) 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: Code(s): C65.2 - Malignant neoplasm of left renal pelvis; C66.2 - Malignant neoplasm of left ureter Plan: S/P laparoscopic left nephroureterectomy at [facility] on 11/29/2020 Follow up with urology as scheduled (5) Neck pain: Code(s): M54.2 - Cervicalgia Plan: Repeat cervical spine x-rays done in May 2022 revealed (+) cervical spondylosis without any acute fracture identified Cervical spine MRI done in the past revealed (+) multilevel cervical spondylosis Will recommend physical therapy if his neck pain flares up; will consider pain management referral if PT does not help much (6) Benign essential hypertension: Code(s): I10 - Essential (primary) hypertension Plan: Reinforced low sodium diet - goal is systolic BP of at least 140 mm Continue Amlodipine 10 mg QD - due to his recently declining renal function, Lisinopril 30 mg QD was stopped and he was started back on Amlodipine 5 mg QD 1 to 2 yrs ago, with dose gradually increased to 10 mg QD since (7) Pure hypercholesterolemia: Code(s): E78.00 - Pure hypercholesterolemia, unspecified Plan: Reinforced low cholesterol diet Patient stopped taking his Atorvastatin a while back; fasting lipids done in March 2020 were okay (his LDL was at 79 mg/dl) back then and they do not appear to have gotten worse on his follow up labs in May 2022 (total cholesterol = 151; LDL cholesterol = 83 (8) Type 2 diabetes mellitus with diabetic chronic kidney disease: Code(s): E11.22 - Type 2 diabetes mellitus with diabetic chronic kidney disease Qualifiers: Diabetes mellitus group home insulin use: without vermin exterminator use Chronic kidney disease stage: stage 3 (moderate) Chronic kidney disease stage 3 subtype: unspecified whether 3a or 3b Qualified Code(s): E11.22 - Type 2 diabetes mellitus with diabetic chronic kidney disease; N18.30 - Chronic kidney disease, stage 3 unspecified Plan: In-office HgbA1c was at 6.0% when it was last checked in August 2022 at his last visit; was at 5.7% previously - goal is at least <7.0% Reinforced diabetic diet - patient has been able to control his DM with diet alone so far has not had to take any Rx for his blood sugar for the past couple of years (9) Asthma: Code(s): J45.909 - Unspecified asthma, uncomplicated Qualifiers: Asthma severity: moderate Asthma persistence: persistent Asthma complication type: uncomplicated Qualified Code(s): J45.40 - Moderate persistent asthma, uncomplicated Plan: His asthma has been reportedly stable - continue Albuterol HFA 2 puffs 4 times a day as needed He used to also been on Symbicort 160-4.5 mcg 1 inhalation BID but appears to have stopped using this a while back, with no problems since Patient also has Albuterol solution 0.083% to use with his nebulizer when needed (10) Dermatitis: Code(s): L30.9 - Dermatitis, unspecified Plan: (+) recurrent widespread itchy rash, especially on his lower legs - symptoms have been ongoing for years Has been seen by dermatology (Dr. Medina and Dr. 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 Reyes) and sent for labs to check immunology - labs came back normal Has been treated with oral Prednisone as needed over the years; states that he has not taken Prednisone for about a year now He was also reportedly referred to and seen by tax investigator (Dr. Albright) on [facility] for further evaluation about a year ago - He currently appears controlled on Triamcinolone acetonide 0.1% cream QD PRN (11) Lumbar degenerative disc disease: Code(s): M51.36 - Other intervertebral disc degeneration, lumbar region Plan: Reinforced activity and weight-lifting restrictions Continue Oxycodone 20 mg 2 to 3 times a day as needed for pain Will again consider pain management referral if his pain progresses and are no longer adequately controlled on his current Rx (12) Insomnia: Code(s): G47.00 - Insomnia, unspecified Qualifiers: Insomnia type: unspecified Qualified Code(s): G47.00 - Insomnia, unspecified Plan: Sleep hygiene reinforced Continue Zolpidem 10 mg Q HS PRN Advised patient that his trouble sleeping through the night has more to do with his urostomy issues as he has had to wake up every couple of hours to change his bag so increasing his sleeping medications would not be the right course of action at this time (13) Overweight (BMI 25.0-29.9): Code(s): E66.3 - Overweight Plan: Reinforced diet Exercise is unrealistic at this time given patient's cancer diagnosis and multiple comorbidities Plan Follow up in 3 months Orders: Referrals Nephrology Referral N18.30 - Chronic kidney disease, stage 3 unspecified Medications: Changed From apixaban (Eliquis) 10 mg (2 x 5 mg) PO BID 5 days 20 tabs 0RF To Eliquis (apixaban) 5 mg PO BID 90 days 180 tabs 1RF NS Coding Level of Care Code TCM Mod MDM <= 7 Days Diagnoses DVT (deep venous thrombosis) I82.431 Affected thrombotic vein of extremity: popliteal Chronicity: acute DVT location: lower extremity Laterality: right Stage 3 chronic kidney disease, unspecified whether stage 3a or 3b CKD N18.30 Chronic kidney disease stage 3 subtype: unspecified whether 3a or 3b Bladder carcinoma C67.9 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 C65.2; C66.2 Neck pain M54.2 Benign essential hypertension I10 Pure hypercholesterolemia E78.00 Type 2 diabetes mellitus with stage 3 chronic kidney disease, without long-term current use of insulin, unspecified whether stage 3a or 3b CKD E11.22; N18.30 Diabetes mellitus group home insulin use: without vermin exterminator use Chronic kidney disease stage: stage 3 (moderate) Chronic kidney disease stage 3 subtype: unspecified whether 3a or 3b Moderate persistent asthma without complication J45.40 Asthma severity: moderate Asthma persistence: persistent Asthma complication type: uncomplicated Dermatitis L30.9 Lumbar degenerative disc disease M51.36 Insomnia, unspecified type G47.00 Insomnia type: unspecified Overweight (BMI 25.0-29.9) E66.3
[2024-02-05 16:50] VITALS: BP 118/58; PULSE 80; O2SAT 94; BMI 29.8
== END 2024-02-05 17:24 | disposition home or self-care (01) ==
PROVIDERS: PCP Internal Medicine; Visit Provider Internal Medicine
DX: I82.431 Acute embolism and thrombosis of right popliteal vein (principal); N18.30 Chronic kidney disease, stage 3 unspecified; C67.9 Malignant neoplasm of bladder, unspecified; C65.2 Malignant neoplasm of left renal pelvis; M54.2 Cervicalgia; I10 Essential (primary) hypertension; E78.00 Pure hypercholesterolemia, unspecified; J45.40 Moderate persistent asthma, uncomplicated; L30.9 Dermatitis, unspecified; M51.36 Other intervertebral disc degeneration, lumbar region; G47.00 Insomnia, unspecified; E66.3 Overweight
CPT/HCPCS: 99495

== ENCOUNTER → 2024-02-26 23:59 | Outpatient (BNV) | payer MEDICARE, SELFPAY | PROVIDERS: PCP Internal Medicine; Visit Provider Internal Medicine | DX: A41.51 Sepsis due to Escherichia coli [E. coli] (principal); F31.9 Bipolar disorder, unspecified; E11.29 Type 2 diabetes mellitus with other diabetic kidney complication; C68.9 Malignant neoplasm of urinary organ, unspecified | CPT/HCPCS: G0180 ==

== ENCOUNTER 2024-03-06 15:52 | Outpatient (AMB) | payer MEDICARE, SELFPAY ==
--- NOTE | 2024-03-06 15:55 | HO.NEPHOV_ITS ---
Vital Signs 03/06/24 15:56 Height 5 ft 8 in Weight 196 lb 4 oz BMI 29.8 BP 110/60 Blood Pressure Location Rt brachial Position Sitting Pulse 65 Pulse Source Pulse Oximeter Pulse Oximetry (%) 95 Oxygen Delivery Method Room Air Intake Visit Reasons: CKD stage 3- Conf Assurance Specialist Required: No Accompanied by: Son Allergies piperacillin [From ZOSYN] Allergy (Intermediate, Verified 03/06/24 15:58) REDNESS/WARMTH TO IV SITE. tazobactam [From ZOSYN] Allergy (Intermediate, Verified 03/06/24 15:58) REDNESS/WARMTH TO IV SITE. ibuprofen Allergy (Unknown, Verified 03/06/24 15:58) Unknown lamotrigine [Lamictal] Allergy (Unknown, Verified 03/06/24 15:58) Unknown Anti-Inflammatory Enzyme Allergy (Unknown, Uncoded 02/05/24 17:09) rash on both legs HPI Comments Details: I had the privilege of seeing Mateus , in consultation in the office for follow up and management of his CKD. He is a 73-year-old male with pertinent history of bladder cancer with mets to pelvis, CKD stage 3, hypertension, transitional cell carcinoma of left kidney, presence of urostomy. He recently had leg swelling and was found to have partially occlusive acute thrombus in the right popliteal vein. He has questionable H/O non compliance. He has H/O Urosepsis as well. He denied H/O fever, chills, chest discomfort, palpitations, shortness of breath, abdominal pain, changes in urinary or bowel habits. He recently had ZINA on CKD but his recent serum creatinine was found to be stable. He was accompanied by is son during this visit. 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 Pruritic erythematous rash Anemia Obesity (BMI 30-39.9) Insomnia Lumbar degenerative disc disease Type 2 diabetes mellitus with diabetic chronic kidney disease Benign essential hypertension Chronic kidney disease (CKD), stage III (moderate) Hematuria Metabolic encephalopathy HLD (hyperlipidemia) Bladder cancer Asthma HTN (hypertension) Surgical History History of urinary diversion procedure Hx of total cystectomy (~08/03/21) History of left nephrectomy (~11/29/20) History of cystoscopy History of bladder surgery Family History Father Hypertension CVD (cardiovascular disease) Mother No problems noted. Social History Household Members: None Housing: Apartment Do you presently have visiting nurse or other home services: No Unable to assess alcohol history related to: Refusing to respond Alcohol intake: former Comment: pt refuses alarm Patient Tobacco Use Status: Never used Tobacco e-Cigarette/Vaping Use: Never Used Second Hand Smoke Exposure: No Advance Directives Date on File: 11/17/21 service: No Current occupational status: retired and disabled Cognitive needs: No Hearing needs: No Vision needs: No Review of Systems Const All systems reviewed & are unremarkable except as noted in HPI and below Physical Exam Vital Signs: Last Vital Signs Pulse 65 03/06/24 15:56 BP 110/60 03/06/24 15:56 Pulse Ox 95 03/06/24 15:56 Oxygen Delivery Method Room Air 03/06/24 15:56 BMI result Body Mass Index 29.8 Const General: comfortable and no acute distress Orientation/consciousness: patient oriented x3 HEENT Head: Yes normocephalic Mouth: Normal oral and palatal mucosa present Eyes EOM: EOMs intact bilaterally Neck Neck: Yes supple Resp Auscultation: clear to auscultation bilaterally Cardio Jugular venous distension: no JVD Rate: regular rate GI Palpation (GI): Soft to palpation Auscultation: normal bowel sounds Neuro General: patient oriented x3 and moves all extremities Results Reviewed Nephrology Results: Hgb 10.4 g/dl (14.0-18.0) L 02/01/24 WBC 3.2 X10*3/uL (4.8-10.8) L 02/01/24 Plt Count 77 X10*3/uL (160-400) L 02/01/24 Sodium 142 mmol/L (135-145) 02/01/24 Potassium 4.6 mmol/L (3.3-5.1) 02/01/24 Chloride 109 mmol/L (96-108) H 02/01/24 Carbon Dioxide 28 mmol/L (22-29) 02/01/24 BUN 27 mg/dL (9-16) H 02/01/24 Creatinine 1.66 mg/dL (0.5-1.4) H 02/01/24 Calcium 9.2 mg/dL (8.4-10.2) 02/01/24 Urine Protein 100 (2+) mg/dL (Neg-Trace) H 01/29/24 Assessment & Plan Assessment & Plan (1) Chronic kidney disease (CKD), stage III (moderate): Code(s): N18.30 - Chronic kidney disease, stage 3 unspecified Category: Medical Qualifiers: Chronic kidney disease stage 3 subtype: unspecified whether 3a or 3b Qualified Code(s): N18.30 - Chronic kidney disease, stage 3 unspecified (2) Solitary kidney, acquired: Code(s): Z90.5 - Acquired absence of kidney Category: Medical (3) Hypertension: Code(s): I10 - Essential (primary) hypertension Category: Medical Qualifiers: Hypertension type: primary hypertension Qualified Code(s): I10 - Essential (primary) hypertension Plan Has acquired solitary kidney S/P nephrectomy for renal malignancy. Has a Urostomy. Has had multiple ZINA on CKD which also might have caused some drop in GFR. Currently his renal function is close to baseline. He needs close follow up with Urology. He has hypertension but he is not sure whether he is taking losartan as well as Amlodipine. If his serum creatinine rises above baseline & if he is taking ARB, I plan to hold the same. He should avoid NSAID's and maintain good hydration. I did not make any medication changes today but discussed his complex H/O, current clinical status and further follow up and management startegies. Answered all his and his son's questions. Time spent reviewing all his extensive medical records, retrieving all data, patient encounter involved 61 minutes. F/U labs ordered and F/U appointment given. Orders: Orders Creatinine 3 Months N18.30 - Chronic kidney disease, stage 3 unspecified Blood Urea Nitrogen 3 Months N18.30 - Chronic kidney disease, stage 3 unspecified Electrolytes 3 Months N18.30 - Chronic kidney disease, stage 3 unspecified Calcium 3 Months N18.30 - Chronic kidney disease, stage 3 unspecified Coding Level of Care Code New Pt Level 5 (38916) Diagnoses Stage 3 chronic kidney disease, unspecified whether stage 3a or 3b CKD N18.30 Chronic kidney disease stage 3 subtype: unspecified whether 3a or 3b Solitary kidney, acquired Z90.5 Primary hypertension I10 Hypertension type: primary hypertension
[2024-03-06 15:56] VITALS: BP 110/60; PULSE 65; O2SAT 95; BMI 29.8
== END 2024-03-06 16:30 | disposition home or self-care (01) ==
PROVIDERS: PCP Internal Medicine; Referring Provider Internal Medicine; Visit Provider Internal Medicine Nephrology
DX: I12.9 Hypertensive chronic kidney disease with stage 1 through stage 4 chronic kidney disease, or unspecified chronic kidney disease (principal); N18.30 Chronic kidney disease, stage 3 unspecified; Z90.5 Acquired absence of kidney
CPT/HCPCS: 99205

== ENCOUNTER → 2024-03-06 15:52 | Outpatient (BNVA) | payer MEDICARE, SELFPAY | PROVIDERS: PCP Internal Medicine; Referring Provider Internal Medicine; Visit Provider Internal Medicine Nephrology | DX: I12.9 Hypertensive chronic kidney disease with stage 1 through stage 4 chronic kidney disease, or unspecified chronic kidney disease (principal); N18.30 Chronic kidney disease, stage 3 unspecified; C61 Malignant neoplasm of prostate; Z90.5 Acquired absence of kidney | CPT/HCPCS: 99202 ==

== ENCOUNTER 2024-05-15 12:23 | Inpatient (IN) | payer OTHER, SELFPAY ==
[2024-05-15 12:32] VITALS: BP 123/63; PULSE 81; RESP 16; TEMP 37.2; O2SAT 94; BMI 25.1
[2024-05-15 12:50] LABS: MANUAL DIFF FLAG NO
--- NOTE | 2024-05-15 13:00 | PC.NURSE ---
patient a&o, came in for uncontrolled pain, iv inserted, labs drawn,nasal swab obtained, pts vitals currently stable, rr equal and non labored, pt has urostomy which he has duct taped to his abdomen, this nurse has attempted to make suggestions to assist patient with the urostomy- pt refusing help and states I use the duct tape all the time, I do this myself and it works for me pts son now at bedside and will speak provider and case management to make further decisions with fathers care.
[2024-05-15 13:03] LABS: Basophils Percent Auto 0.2 % (0-2); Eosinophils Absolute Auto 0.1 X10*3/uL (0.0-0.4); Eosinophils Percent Auto 1.3 % (0-4); Hematocrit 36.2 % (42.0-52.0); Hemoglobin 11.6 g/dl (14.0-18.0); Imm Gran Abs Auto 0.06 X10*3/uL (0.00-0.03); Imm Gran Pct Auto 0.7 % (0.0-0.4); Lymphocytes Absolute Auto 0.7 X10*3/uL (1.2-4.9); Lymphocytes Percent Auto 8.5 % (20-40); Mean Corpuscular Hemoglobin 30.2 pg (27.0-33.0); Mean Corpuscular Volume 94.3 fL (80.0-98.0); Mean Platelet Volume 11.9 fL (9.4-12.4); Monocytes Absolute Auto 0.4 X10*3/uL (0.1-1.2); Monocytes Percent Auto 4.3 % (2-11); Neutrophils Absolute Auto 7.3 x10*3/uL (2.0-8.3); Platelet Count 119 X10*3/uL (160-400); Red Blood Count 3.84 X10*6/uL (4.60-5.80); Red Cell Distribution Width 15.7 % (11.0-16.0); White Blood Count 8.6 X10*3/uL (4.8-10.8)
[2024-05-15 13:14] LABS: Alanine Aminotransferase 35 U/L (0-40); Albumin Level 3.7 g/dL (3.5-5.0); Alkaline Phosphatase 106 U/L (39-117); Anion Gap 8 (12-20); Aspartate Amino Transferase 35 U/L (5-37); Bilirubin Total 1.3 mg/dL (0.0-1.0); Blood Urea Nitrogen 30 mg/dL (9-16); Calcium 8.4 mg/dL (8.4-10.2); Carbon Dioxide 26 mmol/L (22-29); Chloride 107 mmol/L (96-108); Creatinine Clr Calc Pharmacy 26.5; Estimated Glomerular Filt Rate 27; Glucose Random 89 mg/dL (60-115); Potassium 4.2 mmol/L (3.3-5.1); Sodium 137 mmol/L (135-145); Total Protein 6.5 g/dL (6.5-8.0)
[2024-05-15 13:15] LABS: Lactic Acid 0.5 mmol/L (0.5-2.0)
--- NOTE | 2024-05-15 13:18 | ED.ABDPAIN ---
HPI - Abdominal Pain General Chief Complaint: Abdominal Pain Stated Complaint: FROM , HIGH BP, LETHARGY, LOW O2 per EMS Time Seen by Provider: 05/15/24 12:39 Source: patient Mode of arrival: ambulatory History of Present Illness ED Provider: Kaleb HPI narrative: 74-year-old male comes in for uncontrolled pain, reportedly on hospice but is a full code and states he has not been getting adequate pain control and did not know what else to do. He has known metastatic cancer. Related Data Previous Rx's ?Medication ?Instructions ?Recorded ostomy supplies (Visi-Flow #1 ea 03/28/23 Lease Administration Supervisor-[facility] misc) losartan 25 mg tablet 25 mg PO DAILY #30 tabs 01/11/24 morphine 30 mg tablet,extended 30 mg PO Q12H #20 tabs 01/11/24 release oxycodone 20 mg tablet 20 mg PO Q4H PRN SEVERE PAIN #20 01/11/24 tabs Eliquis 5 mg tablet (apixaban) 5 mg PO BID 90 days #180 tabs 02/05/24 SHOWER CHAIR #1 ea 02/26/24 albuterol sulfate 90 mcg/actuation 2 puff inhalation Q4H PRN for 03/03/24 aerosol inhaler (Ventolin HFA) wheezing #18 ea amlodipine 5 mg tablet 10 mg (2 x 5 mg) PO DAILY #90 tabs 03/03/24 trazodone 100 mg tablet 100 mg PO BEDTIME PRN sleep #30 03/03/24 tabs Allergies Allergy/AdvReac Type Severity Reaction Status Date / Time piperacillin [From ZOSYN] Allergy Intermediate REDNESS/WARMTH Verified 05/15/24 12:35 TO IV SITE. tazobactam [From ZOSYN] Allergy Intermediate REDNESS/WARMTH Verified 05/15/24 12:35 TO IV SITE. ibuprofen Allergy Unknown Unknown Verified 05/15/24 12:35 lamotrigine [Lamictal] Allergy Unknown Unknown Verified 05/15/24 12:35 Anti-Inflammatory Enzyme Allergy Unknown rash on Uncoded 02/05/24 17:09 both legs Review of Systems Review of Systems Pertinent positives and negatives as stated in HPI PMFSH Past Medical History Medical History DVT (deep venous thrombosis) Overweight (BMI 25.0-29.9) Presence of urostomy CKD (chronic kidney disease), stage III Hematuria Hyperkalemia Hypertension, uncontrolled Hydronephrosis Urinary tract infection Acute renal failure Hypertension Bipolar disorder Acute kidney injury Dermatitis 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 Pruritic erythematous rash Anemia Obesity (BMI 30-39.9) Insomnia Lumbar degenerative disc disease Type 2 diabetes mellitus with diabetic chronic kidney disease Benign essential hypertension Chronic kidney disease (CKD), stage III (moderate) Hematuria Metabolic encephalopathy HLD (hyperlipidemia) Bladder cancer Asthma HTN (hypertension) Surgical History History of urinary diversion procedure Hx of total cystectomy (~08/03/21) History of left nephrectomy (~11/29/20) History of cystoscopy History of bladder surgery Family History Family History Father Hypertension CVD (cardiovascular disease) Mother No problems noted. Social History Social History Household Members: None Housing: Apartment Do you presently have visiting nurse or other home services: No Unable to assess alcohol history related to: Refusing to respond Alcohol intake: former Comment: pt refuses alarm Patient Tobacco Use Status: Never used Tobacco e-Cigarette/Vaping Use: Never Used Second Hand Smoke Exposure: No Advance Directives Date on File: 11/17/21 service: No Current occupational status: retired and disabled Cognitive needs: No Hearing needs: No Vision needs: No Physical Exam ED Vital Signs: Vital Signs - 24 hr 05/15/24 12:32 05/15/24 16:00 Temperature 99.0 F Pulse Rate 81 77 Respiratory Rate 16 16 Blood Pressure 123/63 166/73 H Pulse Oximetry 94 94 Oxygen Delivery Method Room Air Room Air BMI result Body Mass Index 25.1 VITAL SIGNS: Reviewed. GENERAL: Well developed, well nourished, in no acute distress. HEAD: Normocephalic/atraumatic EYES: PERRLA, EOMI LUNGS: Normal breath sounds. No adventitious sounds or accessory muscle use. SpO2<94> CARDIOVASCULAR: Regular rate and rhythm without noted murmurs ABDOMEN: Soft, non-tender, non-distended with bowel sounds, wound is taped up with duct tape. MUSCULOSKELETAL: No tenderness, deformities, or effusions noted on gross inspection. EXTREMITIES: No cyanosis, clubbing or edema. SKIN: Inspection of the skin reveals no rashes NEUROLOGIC: Alert and oriented x 4. Strength and sensation to light touch were grossly intact x 4. Medical Decision Making Medical Decision Making [facility] Narrative: 74-year-old male with history and clinical presentation, DD DX: Uncontrolled pain, will need improved pain control, unclear whether or not he is on hospice given the fact that he is still full code, reaching out to case management for further clarification regarding patient's hospice status as well as discussion with family for code status. I reviewed interpreted all investigations there there is no associated leukocytosis to suggest underlying infection, there is a stable normocytic anemia and a chronically stable thrombocytopenia. There is a worsening evidence of renal function, will encourage p.o. hydration but given metastatic source of cancer this is not entirely surprising. Mild bump in total bilirubin but no right upper quadrant pain and no nausea or vomiting. Patient was provided with morphine for pain. Viral testing is negative. Case management is recommending physician observation in the emergency room until further analysis with transition from [facility] hospice care to [facility] hospice. They will need to be further discussion regarding goals of care and MOLST. Specifically DNR/DNI. Patient placed in physician observation at 1717, he is otherwise hemodynamically stable, he was placed on morphine regimen that is noted in his prior prescription list. Differential Diagnosis Differential Diagnoses: The differential diagnosis associated with the presentation includes See above Admission/Observation Consideration of admission/observation: Escalation of care including admission/observation considered Unknown at this time Consult Healthcare Provider Management of the patient was discussed with: Director Medical Economics Case management Lab Data [facility] Lab Attestation statement: I reviewed the patient's lab results. See above 05/15/24 12:43 05/15/24 12:43 Labs: Lab Results 05/15/24 Range/Units 12:43 WBC 8.6 (4.8-10.8) X10*3/uL RBC 3.84 L (4.60-5.80) X10*6/uL Hgb 11.6 L (14.0-18.0) g/dl Hct 36.2 L (42.0-52.0) % MCV 94.3 (80.0-98.0) fL MCH 30.2 (27.0-33.0) pg MCHC 32.0 (31.0-36.0) g/dl RDW 15.7 (11.0-16.0) % Plt Count 119 L D (160-400) X10*3/uL MPV 11.9 (9.4-12.4) fL Immature Gran % (Auto) 0.7 H (0.0-0.4) % Neut % (Auto) 85.0 H (45-73) % Lymph % (Auto) 8.5 L (20-40) % [place] % (Auto) 4.3 (2-11) % Eos % (Auto) 1.3 (0-4) % Baso % (Auto) 0.2 (0-2) % Lymph # (Auto) 0.7 L (1.2-4.9) X10*3/uL [place] # (Auto) 0.4 (0.1-1.2) X10*3/uL Eos # (Auto) 0.1 (0.0-0.4) X10*3/uL Baso # (Auto) 0.0 (0.0-0.2) X10*3/uL Abs Immat Gran (auto) 0.06 H (0.00-0.03) X10*3/uL Absolute Neuts (auto) 7.3 (2.0-8.3) x10*3/uL Absolute Nucleated RBC 0.000 (0.0-0.012) X10*3/uL Nucleated RBC % (auto) 0.0 (0.0-0.2) /100WBC Sodium 137 (135-145) mmol/L Potassium 4.2 (3.3-5.1) mmol/L Chloride 107 (96-108) mmol/L Carbon Dioxide 26 (22-29) mmol/L Anion Gap 8 L (12-20) BUN 30 H (9-16) mg/dL Creatinine 2.40 H (0.5-1.4) mg/dL Estim Creat Clear Calc 26.5 Estimated GFR 27 Random Glucose 89 (60-115) mg/dL Lactic Acid 0.5 (0.5-2.0) mmol/L Calcium 8.4 D (8.4-10.2) mg/dL Total Bilirubin 1.3 H (0.0-1.0) mg/dL AST 35 (5-37) U/L ALT 35 (0-40) U/L Alkaline Phosphatase 106 (39-117) U/L Troponin I High Sens 4.8 (<3.5-35.0) ng/L Total Protein 6.5 (6.5-8.0) g/dL Albumin 3.7 (3.5-5.0) g/dL Influenza Type A (PCR) NEGATIVE (Negative) Influenza Type B (PCR) NEGATIVE (Negative) RSV RNA Qual (PCR) NEGATIVE (Negative) SARS-CoV-2 RNA (RT-PCR) NEGATIVE (Negative) Medications Administered Discontinued Medications Generic Name Dose Route Start Last Admin Trade Name Freq PRN Reason Stop Dose Admin Morphine Sulfate 15 mg 05/15/24 13:19 05/15/24 13:48 Morphine Sulfate Immed Release 15 Mg Tablet PO 05/15/24 13:20 15 mg ONCE ONE Administration Critical Care Time Critical Care Time Critical Care Time: Yes Total Critical Care Time: 60 Attestation: I personally attest to this time spent taking care of the patient. Discharge Plan Discharge Clinical Impression: Uncontrolled pain, Metastatic cancer Patient Disposition: Still a Patient Prescriptions: No Action (DME) Visi-Flow Lease Administration Supervisor-[facility] Misc See Rx Instructions .Route Qty: 1 5RF Rx Instructions: As directed (DME) SHOWER CHAIR See Rx Instructions .Route .MEDSUPPLY Qty: 1 0RF Rx Instructions: As directed amlodipine 5 mg tablet 10 mg PO DAILY Qty: 90 1RF trazodone 100 mg tablet 100 mg PO BEDTIME PRN (Reason: sleep) Qty: 30 2RF albuterol sulfate [Ventolin HFA] 90 mcg/actuation HFA aerosol inhaler 2 puff inhalation Q4H PRN (Reason: for wheezing) Qty: 18 2RF losartan 25 mg tablet 25 mg PO DAILY Qty: 30 0RF morphine 30 mg tablet extended release 30 mg PO Q12H Qty: 20 0RF oxycodone 20 mg tablet 20 mg PO Q4H PRN (Reason: SEVERE PAIN) Qty: 20 0RF Eliquis 5 mg tablet 5 mg PO BID 90 Days Qty: 180 1RF Print Language: Botswanan
[2024-05-15 13:21] LABS: Troponin-I High Sensitivity 4.8 ng/L (<3.5-35.0)
[2024-05-15 13:44] LABS: Influenza A PCR NEGATIVE (Negative); Influenza B PCR NEGATIVE (Negative); Resp Syncy Virus RNA Qual PCR NEGATIVE (Negative); SARS COV2 PCR INHOUSE NEGATIVE (Negative)
[2024-05-15] MEDS: Morphine Sulfate Immed Release 15 MG TABLET PO (13:48)
--- NOTE | 2024-05-15 15:45 | MHC.CM.PN ---
pt was under hospice w/[facility] until he was transferred here due to pain control per [facility] pt asked [facility] transferred to [facility] has dcd pt they feel he is not safe to go home without additonal help at home ..after much discussion pt will be an ed boarder till a safe dc can be in place if pt [facility] pt can stay under respite for 5 days until a safe dc can be put in place if pt stays with [facility] have a contract w/chyna ,eben and ashu linda all of this was duiscusse with pts son usama [phone] who will coming into speak with the pt about same dr edge notied of this plan as asked to do a dnr w/pt as he does not have one son will let us know what pt wishes are
--- NOTE | 2024-05-15 15:57 | MHC.CM.PN ---
timothy kearney will be working the weekend for [facility] and can be reached at [phone] call to update
[2024-05-15 16:00] VITALS: BP 166/73; PULSE 77; RESP 16; O2SAT 94
--- NOTE | 2024-05-15 16:57 | PC.NURSE ---
pharmacy called for med req
[2024-05-15 18:00] VITALS: BP 143/65; PULSE 85; RESP 18; TEMP 36.9; O2SAT 94
--- NOTE | 2024-05-15 18:07 | PHA.MEDREC ---
Addendum entered by Chapo Haq [facility] 05/15/24 18:43: Med rec reviewed Original Note: Pharmacy Consult ? Medication Reconciliation Pharmacy has completed the medication reconciliation.Spoke with son Cj at bedside and he confirmed his dad has only been using the Trazodone 100mg tabs once at bedtime as needed for sleep, Oxycodone 20mg tabs once tab once tab every 4 hours as needed for pain and Morphine 30mg tabs once every 12 hours as needed for pain. The patient was taking Eliquis 5mg tabs 1 BID but the patients son states as of 2 months ago the patient has stopped taken them due to [facility] fearing he might fall at home or in the shower and bleed out . The patient confirmed he thinks he is taking a HBP mediaciton but is not sure the name when when I asked if it was the Amlodioine 5mg tab, looking in claims Amlodipine 5mg tabs were filled 04/16 for a 90 day supply. The patients son confirmed he took the Oxycodone and Morphine this morning around 11:20, the Trazodone was taken last night and the Amlodipine is unknown when the patient last took that.
[2024-05-15] MEDS: Morphine Sulfate ER 30 MG TABLET.ER PO (18:19)
--- NOTE | 2024-05-15 19:07 | PC.NURSE ---
provider evaluated pts urostomy as its leaking, it was removed by provider, we obtained a new appliance, this nurse cut the appliance to 1inch to fit pts stoma which was beefy red, skin prep was applied and the appliance was applied. pt then got oob to chair to sit while an inpt bed was brought into the room, upon returning to the bed the patients appliance fell off, overnight nurse was getting report from this nurse when the tech notified us of this happening, night nurse to attempt to fix the appliance as well.
[2024-05-15 20:28] LABS: Appearance Urine Cloudy; Color Urine Yellow; Glucose Urine UA Negative (Negative); Leukocyte Esterase Urine Large (3+) (Negative); Nitrite Urine Negative (Negative); Specific Gravity - Urine 1.015 (1.005-1.025); UMIC TRIGGER UACC YES; Urine Blood Large (3+) (Negative); Urine Ketones Negative (Negative); Urine Protein 30 (1+) mg/dL (Neg-Trace)
--- NOTE | 2024-05-15 20:39 | MHC.EDTECH ---
This tech took over care of patient at 1900,rounded and introduced self to patient,patient is resting,watching TV,belongings list completed,pt has $311.00 Daniels,locked in safe,security at bedside as a witness. copy placed in chart,call sheikh in reach
[2024-05-15 21:30] LABS: Bacteria Urine Trace (None Seen); RBC Urine >20 /HPF (0-2); Squamous Epithelial Cell Urine 0-2 /HPF (0-2); UACC Culture Trigger YES; WBC Urine >50 /HPF (0-5)
[2024-05-15 22:00] VITALS: BP 145/63; PULSE 80; RESP 18; TEMP 37.5; O2SAT 93
[2024-05-15] MEDS: traZODone HCL 100 MG TABLET PO (23:41)
[2024-05-15] MEDS: oxyCODONE HCl Immed Release 5 MG TABLET 20 MG PO (23:41)
[2024-05-16 03:20] VITALS: BP 129/66; PULSE 62; RESP 16; TEMP 37; O2SAT 97
--- NOTE | 2024-05-16 04:00 | MHC.EDTECH ---
400 ml empty from Patient urostomy .
[2024-05-16] MEDS: oxyCODONE HCl Immed Release 5 MG TABLET 20 MG PO ×3 (05:13→19:50)
--- NOTE | 2024-05-16 05:27 | PC.NURSE ---
Patient medicated for PRN pain with Oxycodone 20mg as ordered. Pain level is currently 5 out of 10. Requested and given a chicken salad sandwich, pudding, cheese stick, and araseli mello. Awaiting breakfast tray that's expected to arrive later this morning. Watching TV. Care ongoing by this RN.
[2024-05-16 05:54] VITALS: BP 162/73; PULSE 65; RESP 16; TEMP 36.1; O2SAT 97
--- NOTE | 2024-05-16 06:02 | MHC.EDTECH ---
350 ml urine empty from urostomy bag .
[2024-05-16 09:23] VITALS: BP 147/65; PULSE 62; RESP 16; TEMP 37.1; O2SAT 92
[2024-05-16] MEDS: amLODIPine Besylate 10 MG TABLET PO (09:23)
--- NOTE | 2024-05-16 10:00 | PC.NURSE ---
patient sleeping without discomfort. Even unlabored respirations.
--- NOTE | 2024-05-16 11:33 | MHC.CM.ED ---
Addendum entered by Bridget Kemp 05/16/24 11:40: Shiela Hassan CM Director aware. Original Note: Patient remains in ER overflow. Met with patient and son, Cj, in regards to discharge planning. Patient sleeping at this time. Patient lives in an apartment in congregate housing and was active with [facility]. No MOLST. HCP verified to be on file. Cj states he will not be able to provide 24/7 care for his dad because he works full-time. Cj also doesn't feel patient is at a point with 24/7 care is needed. Patient's [facility] is currently not active. Patient previously had [facility]. [facility] Counselors made aware. Per Sara of [facility], they will only sign patient onto their service if patient and son are agreeable to LTC. Anticipate patient will remain in ER until Saturday. Leyda KAYE will complete MOLST with patient. Continue to monitor for d/c needs.
--- NOTE | 2024-05-16 12:30 | PC.NURSE ---
patient sitting upright in bed, with lunch tray given and assistance with set up provided. patient denies any discomfort or pain at this time. Patient independently eating meals. call sheikh within reach.
--- NOTE | 2024-05-16 13:45 | PC.NURSE ---
hospice music therapist at bedside to assess patient. patient alert oriented and interactive with nurse.
[2024-05-16 14:00] VITALS: BP 123/83; PULSE 77; RESP 16; TEMP 36.9; O2SAT 94
[2024-05-16] MEDS: hydrOXYzine HCL 25 MG TABLET PO (17:42)
[2024-05-16] MEDS: Morphine Sulfate ER 30 MG TABLET.ER PO (18:09)
--- NOTE | 2024-05-16 19:11 | PC.NURSE ---
received report from Jennifer OCASIO, assume care of pt at this time
[2024-05-16] MEDS: traZODone HCL 100 MG TABLET PO (19:50)
[2024-05-16 19:51] VITALS: BP 145/67; PULSE 97; RESP 20; TEMP 36.4; O2SAT 93
--- NOTE | 2024-05-16 19:52 | PC.NURSE ---
pt yelling and cussing because, housekeeping cleaned the room next to him. Pt states, I have asthma, do you have to do it now? Explained to pt, it had to be cleaned now, because another pt was coming.
--- NOTE | 2024-05-16 21:07 | PC.NURSE ---
pt awake and asking form more pain medicine Informed pt, I just gave it to him, 1 hours ago. Pt then starts yelling, I am dying, and you people are not giving me my pain medicine. I take it every 4 hours at home informed pt, I would try to get him a one time dose
[2024-05-17] MEDS: oxyCODONE HCl Immed Release 5 MG TABLET 20 MG PO ×4 (05:50→21:16)
[2024-05-17 06:00] VITALS: BP 150/72; PULSE 84; RESP 18; TEMP 36.4; O2SAT 95
--- NOTE | 2024-05-17 06:08 | PC.NURSE ---
pt c/o of being wet, his urostomy bag was full. Pt yelled, that it should have been emptied every hour. Pt c/o of pain, pt medicated with 20mg oxycodone. Pt states, I take 2 pills of Morphine at home. Pt has 30mg of Morphine, PO, asked pt if he wanted it. Pt states, I take both morphine and oxycodone at the same time. Pt refused to have his urostomy bag changed. Pt yelled, only a doctor could change his bag reinforced the tape around the side of the bag. Bag was emptied of 500cc urine.
[2024-05-17] MEDS: Morphine Sulfate ER 30 MG TABLET.ER PO (06:14)
--- NOTE | 2024-05-17 06:56 | PC.NURSE ---
report given Katarzyna OCASIO
[2024-05-17 09:54] VITALS: BP 150/72; RESP 22
[2024-05-17] MEDS: HYDROmorphone HCl 0.5 MG/0.5 ML SYRINGE IVPUSH ×2 (09:54→14:32)
[2024-05-17] MEDS: amLODIPine Besylate 10 MG TABLET PO (09:54)
[2024-05-17 14:20] VITALS: BP 141/66; PULSE 108; RESP 18; TEMP 36.9; O2SAT 92
[2024-05-17 14:32] VITALS: RESP 14
--- NOTE | 2024-05-17 15:43 | MHC.CM.ED ---
Patient remains in ER overflow. Patient was signed onto [facility] on 05/16. [facility] financial counselors already consulted to help with [facility]. Continue to monitor for d/c needs.
--- NOTE | 2024-05-17 20:45 | PC.NURSE ---
pt's bed and gown were wet with urine, urosotomy bag was leaking, dressing was so wet it was pulling away from skin. bag and ostomy seal changed, but still leaking d/t location along a fold. bed changed, pt washed and changed, repositioned in bed. very stiff to move
[2024-05-17 21:08] VITALS: BP 139/63; PULSE 103; RESP 18; TEMP 38.1; O2SAT 96
[2024-05-17] MEDS: traZODone HCL 100 MG TABLET PO (22:02)
--- NOTE | 2024-05-17 22:20 | PC.NURSE ---
pt sitting up on edge of bed moaning in pain, assisted back to bed. pt medicated per AUG
[2024-05-17 22:22] VITALS: TEMP 36.8
[2024-05-18] VITALS (8 sets, daily range): BP systolic 116–159; BP diastolic 60–72; PULSE 78–105; RESP 18–40; TEMP 36.3–39.2; O2SAT 90–92
[2024-05-18] MEDS: Morphine Sulfate ER 30 MG TABLET.ER PO (01:03)
[2024-05-18] MEDS: oxyCODONE HCl Immed Release 5 MG TABLET 20 MG PO ×2 (03:35→08:04)
[2024-05-18] MEDS: Acetaminophen 325 MG TABLET 650 MG PO (08:02)
[2024-05-18] MEDS: amLODIPine Besylate 10 MG TABLET PO (08:02)
--- NOTE | 2024-05-18 08:12 | PC.NURSE ---
this nurse took over pt care at 7am, pt is awake/alert, moaning in pain,this nurse had the patient upon his initial arrival to the ED and his current mentation/state has greatly changed from the day he arrived. Pt is not not able to carry on a conversation in full sentences and is no longer independent with eating. Currently, when he is asked a direct question he is able to answer but is moaning with the answer, pt was given his AM medication along with tylenol and pain medications- pt put the medication in his mouth and had difficulty swallowing the pills- he was given water- was unable to sip through a straw, was spoon fed water which he was able to swallow without cough but continued to pocket the pills in his mouth. This nurse continued to spoon feed the patient water until he was able to swallow the medication. His breakfast tray is a regular diet which he is no longer able to chew and swallow at this time- notified Niesha KAYE of this change- pt should have a puree type diet and be a 1:1 feed. Pt was offered yogurt and applesauce off the tray which he declined. Pts urostomy is intact but continues to leak which has been an issue since before coming to the ED. RR is equal/ lungs diminished and RR was 38 which is also a change. This nurse advocates for the patient to either be placed on a SOU[employer]EL[employer] MAKER pump for comfort or switch to liquid PO morphine with IVP ativan for hospice purposes. Bindu KAYE in the ED is coming to see the patient as molst needs to be completed. Case management is reaching out to hospice to re-eval the patient.
--- NOTE | 2024-05-18 08:15 | MHC.EDTECH ---
pt had 0% breakfast was having a hard time swallowing
--- NOTE | 2024-05-18 08:20 | MHC.EDTECH ---
pt urostomy bag was empty, voided 200ml
--- NOTE | 2024-05-18 08:45 | MHC.EDTECH ---
pt was washed up with complete bed change
--- NOTE | 2024-05-18 08:51 | MHC.CM.ED ---
Addendum entered by Bridget Kemp 05/18/24 11:29: [facility] SW on -site to see patient. Hospice nurse will be on-site around 1-130pm to determine if GIP is appropriate. Patient, Aliya OCASIO and Bindu KAYE aware. Original Note: Received notification from Bindu KAYE that patient's having issues with pain control with oral meds. [facility] made aware and will have nurse on-site to assess patient. Continue to monitor for d/c needs.
[2024-05-18] MEDS: LORazepam 2 MG/ML VIAL 0.5 MG IVPUSH ×2 (09:40→17:24)
--- NOTE | 2024-05-18 09:44 | PC.NURSE ---
pt medicated with ativan, family at bedside requesting a recliner chair, also wanting to feed the patient
[2024-05-18] MEDS: HYDROmorphone HCl 0.5 MG/0.5 ML SYRINGE IVPUSH ×3 (10:09→17:12)
--- NOTE | 2024-05-18 12:46 | MHC.EDTECH ---
pt ate less than 25% for lunch
--- NOTE | 2024-05-18 13:09 | PC.NURSE ---
pt turned/positioned to comfort, tape applied to urostomy to attempt to stop leaking. pt then medicated for increased pain 04/09, will continue to monitor
--- NOTE | 2024-05-18 13:11 | MHC.EDTECH ---
pt was washed up urostomy bag keeps leaking and new take was applied
--- NOTE | 2024-05-18 14:53 | MHC.SL.SWA ---
Speech Pathologist Impression: Risk of Aspiration, Oralpharyngeal Dysphagia Risk of Aspiration Due to: Medically Fragile Reduced Cognition Dysphasia Diet Status: Upgrade liquids from PTL to THIN Liquid Consistency and Strategies for Safe Swallow: Liquid Intake Recommendation: Thin Liquid Intake Strategies: Small Sips No Straws Liquids by Teaspoon Only Solid Food Consistency: Dietary Recommendations: Pureed (NDD1) Additional Modifications to Solid Foods: Feed small bites, check oral cavity for clearance periodically, ensure patient had cleared bolus before presenting next bite. Liquids to be given by teaspoon only. Hold tray if patient is lethargic or not attending to feeding. Per EMR, patient to transition to [facility] hospice. Oral Medication Intake: Crushed with Puree Please contact the pharmacy regarding appropriate crushable or liquid drug formulations that are available whenever modified delivery is recommended. Compensatory Strategies and Precautions to be Taken for Safe Swallow: Sitting Upright (90 deg) No Straw Liquids from Spoon Small Bites and Sips Alternate Liquids/Solids Rate of Ingestion Change Oral Check Supervision While Eating and Drinking for Safe Swallow: Total Assistance (1:1) Swallowing Recommended Treatments: Compens. Strategy Educat. Recommendation for Speech: Inpatient Speech Therapy Telecine Operator Clinican/Clinical Fellow: No Supervisory Statement: I have reviewed and agree with the student/clinical fellow's documentation: N/A Speech Language Pathologist: Abril Vo M.A., CCC-LOADING MACHINE OPERATOR HELPER
--- NOTE | 2024-05-18 14:56 | MHC.SL.SWA ---
Speech Pathologist Impression: Risk of Aspiration, Oralpharyngeal Dysphagia Risk of Aspiration Due to: Medically Fragile Reduced Cognition Dysphasia Diet Status: Upgrade liquids from PTL to THIN Liquid Consistency and Strategies for Safe Swallow: Liquid Intake Recommendation: Thin Liquid Intake Strategies: Small Sips No Straws Liquids by Teaspoon Only Solid Food Consistency: Dietary Recommendations: Pureed (NDD1) Additional Modifications to Solid Foods: Feed small bites, check oral cavity for clearance periodically, ensure patient had cleared bolus before presenting next bite. Liquids to be given by teaspoon only. Hold tray if patient is lethargic or not attending to feeding. Meds are being given via IV at this time. Per EMR, patient to transition to [facility] hospice. Oral Medication Intake: NPO Please contact the pharmacy regarding appropriate crushable or liquid drug formulations that are available whenever modified delivery is recommended. Compensatory Strategies and Precautions to be Taken for Safe Swallow: Sitting Upright (90 deg) No Straw Liquids from Spoon Small Bites and Sips Alternate Liquids/Solids Rate of Ingestion Change Oral Check Supervision While Eating and Drinking for Safe Swallow: Total Assistance (1:1) Swallowing Recommended Treatments: Compens. Strategy Educat. Recommendation for Speech: Inpatient Speech Therapy Coater Clinican/Clinical Fellow: No Supervisory Statement: I have reviewed and agree with the student/clinical fellow's documentation: N/A Speech Language Pathologist: Abril Vo M.A., CCC-CONSUMER SERVICES CONSULTANT
--- NOTE | 2024-05-18 15:31 | MHC.CM.ED ---
Received notification from [facility] that patient will be admitted to hospital under GIP for hospice. Bindu KAYE and Aliya OCASIO made aware. Bindu KAYE will contact hospitalist. Continue to monitor for d/c needs.
--- NOTE | 2024-05-18 16:27 | PC.NURSE ---
Pt is to be admitted under hospice, Dr Costa came to see the patient and was told about the patients leaking urostomy. Additionally in a tiger text this nurse suggested the patient have a wound consult or urology consult to address the leaking urostomy. This nurse took care of the patient when he initally presented to the ED. The patient came in with duct tape across his abdomen- when this nurse asked why he told this nurse that his urostomy always leaks and that helped it to not leak. Numerous attempts and appliance changes have occurred since then and the urostomy continues to leak. The patient is cleaned and full bed changes are done often- considering the patient is on hospice hopefully wound or urology can find something to assist in his care.
--- NOTE | 2024-05-18 16:46 | PC.NURSE ---
tech went in with patients dinner, pt refused to take PO, pt was also asked if he needed pain medication which he declined at this time.
--- NOTE | 2024-05-18 17:08 | PC.NURSE ---
while turning to clean the patient he began to scream out in pain, pt is now agreeable to have pain medication
--- NOTE | 2024-05-18 17:11 | P.HPHOSP_ITS ---
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, initially presented to [place] emergency room on 05/15 for uncontrolled pain, workup in the emergency room showed no leukocytosis, had normocytic anemia and chronically stable thrombocytopenia , patient was treated with IV morphine, viral testing was negative, vitals were stable, patient was placed under physician observation in the emergency room, at that time he was awake alert tolerating diet, this morning patient complained of pain, was treated with IV Dilaudid black top paver operator evaluated, MOLST form was filled out via telephone with son Cj Nation by ED provider, patient is DNR DNI and now being admitted under [facility] hospice for better pain control since requiring IV analgesics, at present time patient is unresponsive unable to provide any meaningful history as per nurse patient was unable to swallow pills this morning but was able to take thin liquids, speech therapy evaluated the patient and recommend pureed diet and thin liquids with spoon and no pills. Review of Systems 2 Review of Systems: Unable to obtain due to mental status [facility] Medical History DVT (deep venous thrombosis) Overweight (BMI 25.0-29.9) Presence of urostomy CKD (chronic kidney disease), stage III Hematuria Hyperkalemia Hypertension, uncontrolled Hydronephrosis Urinary tract infection Acute renal failure Hypertension Bipolar disorder Acute kidney injury Dermatitis 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 Pruritic erythematous rash Anemia Obesity (BMI 30-39.9) Insomnia Lumbar degenerative disc disease Type 2 diabetes mellitus with diabetic chronic kidney disease Benign essential hypertension Chronic kidney disease (CKD), stage III (moderate) Hematuria Metabolic encephalopathy HLD (hyperlipidemia) Bladder cancer Asthma HTN (hypertension) Family History Father Hypertension CVD (cardiovascular disease) Mother No problems noted. Surgical History History of urinary diversion procedure Hx of total cystectomy (~08/03/21) History of left nephrectomy (~11/29/20) History of cystoscopy History of bladder surgery Social History Household Members: None Housing: Apartment Do you presently have visiting nurse or other home services: No Unable to assess alcohol history related to: Refusing to respond Alcohol intake: former Comment: pt refuses alarm Patient Tobacco Use Status: Never used Tobacco Smoked in Last 30 Days: No e-Cigarette/Vaping Use: Never Used Second Hand Smoke Exposure: No Use of substances other than those prescribed or required for medical reasons: No Advance Directives: Yes Advance Directives on File: Yes Advance Directives Date on File: 11/17/21 Do you have a plan to hurt others: No Plan service: No Current occupational status: retired and disabled Cognitive needs: No Hearing needs: No Vision needs: No Meds Allergies Allergy/AdvReac Type Severity Reaction Status Date / Time piperacillin [From ZOSYN] Allergy Intermediate REDNESS/WARMTH Verified 05/15/24 12:35 TO IV SITE. tazobactam [From ZOSYN] Allergy Intermediate REDNESS/WARMTH Verified 05/15/24 12:35 TO IV SITE. ibuprofen Allergy Unknown Unknown Verified 05/15/24 12:35 lamotrigine [Lamictal] Allergy Unknown Unknown Verified 05/15/24 12:35 Anti-Inflammatory Enzyme Allergy Unknown rash on Uncoded 02/05/24 17:09 both legs Active Medications: Current Medications Hydromorphone HCl (Hydromorphone Hcl 1 Mg/Ml Syringe) 1 mg IVPUSH Q6H BALA; Protocol Hydromorphone HCl (Hydromorphone Hcl 0.5 Mg/0.5 Ml Syringe) 0.5 mg IVPUSH Q2H PRN; Protocol PRN Reason: Pain, Severe (Pain Scale 7-10) Lorazepam (Lorazepam 2 Mg/Ml Vial) 0.5 mg IVPUSH Q4H PRN PRN Reason: anxiety/restlessness Last Admin: 05/18/24 09:40 Dose: 0.5 mg Home Medications ?Medication ?Instructions ?Recorded ?Confirmed ?Last Taken ?Type morphine 30 mg tablet,extended 30 mg PO Q12H PRN Pain 05/15/24 05/15/24 05/15/24 11:30 History release Physical Exam 2 Vital Signs and Narrative: Vital Signs: Last Vital Signs Temp 97.3 F 05/18/24 13:49 Pulse 85 05/18/24 13:49 Resp 20 05/18/24 13:49 BP 116/60 05/18/24 13:49 Pulse Ox 90 L 05/18/24 13:49 O2 Del Method Room Air 05/18/24 13:49 O2 Flow Rate 2 05/17/24 14:20 BMI result Body Mass Index 25.1 Const: Other: General unresponsive Neck no JVD. CVS regular rate rhythm, Respiratory lungs tachypneic, no wheeze Gastrointestinal abdomen soft, bowel sounds , midline scar, urostomy stoma red moist around within skin folds, skin around stoma no redness Extremities no edema. 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 Metastatic bladder cancer with Mets admitted due to worsening pain not responding to oral analgesics Admit under [facility] hospice IV Dilaudid scheduled and as needed IV Ativan as needed for anxiety Scopolamine patch Oxygen for comfort Continue pureed diet with thin liquids avoid pills Obtain wound consult for leaking urostomy bag In regard to chronic medical issues including chronic kidney disease stage 3, hypertension, mood disorder, asthma, transitional cell carcinoma of left kidney, hold all home medications. DNR DNI Quality Stroke Does the patient have a stroke diagnosis?: No VTE Prior VTE?: No VTE Risk Level:: Medical - moderate - high VTE Device Contraindication: Treatment Not Indicated VTE Drug Contraindication: Treatment Not Indicated
--- NOTE | 2024-05-18 17:26 | PC.NURSE ---
pt medicated for 10/10 pain, pt continued to thrash arms and scream out with increased agitation, pt was also medicated for agitation. dr. hinkle requested pt to have 2L NC placed, the NC was placed and pt ripped it out of his nose- no O2 will be administered at this time. will call pharmacy for the missing medication
[2024-05-18] MEDS: Scopolamine 1.5 MG PATCH.TD.3 EAR-BEHIND (17:53)
--- NOTE | 2024-05-18 18:17 | MHC.EDTECH ---
pt was washed up inc. of urine from the leaking urostomy bag
--- NOTE | 2024-05-18 18:32 | MHC.EDTECH ---
pt voided 50ml and urostomy bag was cleaned around the edges that are leaking
[2024-05-18] MEDS: HYDROmorphone HCl 1 MG/ML SYRINGE IVPUSH (20:19)
--- NOTE | 2024-05-18 20:27 | PC.NURSE ---
urostomy leaking yellow. changed padding at this time after pt was medicated for pain.
[2024-05-19] VITALS (10 sets, daily range): BP systolic 117–170; BP diastolic 68–81; PULSE 95–104; RESP 18–32; TEMP 37–38.1; O2SAT 94–97
[2024-05-19] MEDS: HYDROmorphone HCl 1 MG/ML SYRINGE IVPUSH ×4 (01:05→19:17)
[2024-05-19] MEDS: HYDROmorphone HCl 0.5 MG/0.5 ML SYRINGE IVPUSH (03:28)
[2024-05-19] MEDS: LORazepam 2 MG/ML VIAL 0.5 MG IVPUSH (03:37)
--- NOTE | 2024-05-19 06:22 | PC.NURSE ---
Dr Macias made aware of pt bp 162/70 hr 104.
--- NOTE | 2024-05-19 08:13 | HO.OSTOMY ---
Ostomy Consult: Initial 74yr old?Male admitted to [facility] on 05/18/24 - See progress notes and H&P for detailed history.?Ostomy consult placed for Urostomy with leaking and difficult to pouch stoma.? Patient agreeable to assessment and photo documentation.? Patient is alert and awake but not able to make meaningful conversation. He was medicated recently but remains in pain direct care nurse aware. Patient is known to this policy writer sales from previous consultations. Patient is known to use a Convex pouch normally as pouch adherence difficult due to it being with in his crease of his abdomen. He is agreeable to a pouch change into Coloplast Convex pouch # [id number] (only available from inpt wound care nurse). The creases on either side at 3 and 9 o'clock were filled with Brava Barrier Strip Paste (Storeroom#[id number]) Pouch cut to 25MM oval. Pouch completed with Coloplast Elastic C strips to hold in place and a Brava Belt. (These are also only available from inpt wound care nurse). One pouch change left at bedside for future use. Please reuse belt this is not a onetime use item. Stoma when sitting within crease Stoma - red moist round and above skin level but with in skin fold - needs convexity. Peristomal skin intact. Coloplast barrier ring used along with convex pouch [id number] and curved barrier strips to seal and belt. He was agreeable to these steps. Applied without complications.
--- NOTE | 2024-05-19 10:30 | PC.NURSE ---
Pt ostomy keeps leaking- wound care nurse at bedside- dressing changed by wound care nurse. New appliance placed- bed and linens changed as they were saturated with urine- pt refused to eat food due to texture. Pt offered yogurt/pudding refused both. Pt placed in recliner for comfort- at bedside
--- NOTE | 2024-05-19 11:44 | MHC.CLN ---
ADDED ENSURE TID PER NURSING REQUEST
--- NOTE | 2024-05-19 12:31 | MHC.SL.DTX ---
Dysphagia Diet modifications: Last documented Solid diet consistencies: Pureed (NDD1) Last documented Liquid consistency: Pudding Thick Changes made to current diet?: Yes Liquid Consistency and Strategies: Liquid Intake Recommendation: Thin Compensatory Strategies for Safe Swallow: Small Sips Compensatory Strategies for Safe Swallow(b): Sitting Upright (90 deg) Small Bites and Sips Alternate Liquids/Solids Rate of Ingestion Change Solid Food Consistency: Dietary Recommendations: Chopped/Advanced (NDD3) Additional Modifications to Solids: YOUTH COUNSELOR recommending upgrade to Chopped/Advanced Solids (NDD3) and Thin Liquids. Meds Whole with Puree. YOUTH COUNSELOR will follow-up to monitor tolerance. Oral Medication Intake: Whole with Puree Strategies and Precautions to be Taken for Safe Swallow: Sitting Upright (90 deg) Small Bites and Sips Alternate Liquids/Solids Rate of Ingestion Change Supervision While Eating and/Drinking: Total Assistance (1:1) Foods to Avoid: Swallowing Recommended Treatments: Compens. Strategy Educat. Level of Impact on: Daily activities: Moderate Education: None Employment: None Community: None Prognosis for Improvement: Fair Recommendation for Speech: Inpatient Speech Therapy Comment: Feed small bites, check oral cavity for clearance periodically, ensure patient had cleared bolus before presenting next bite. Liquids to be given by teaspoon only. Hold tray if patient is lethargic or not attending to feeding. Meds are being given via IV at this time. Per EMR, patient to transition to [facility] hospice. Additional Comments: Treatment: Per RN, Pt refused breakfast stating that it looked like dog food . RN also reported Hospice consult is not finalized, and may not go through. Pt is requesting upgrade. Pt is upright in his recliner when approached. He makes eye contact and nods vaguely when asked questions, but did not respond to me verbally. He accepted PO when offered to him by opening his mouth. He refused puree mixed with katlin cracker, but accepted the cracker with follow-up bite of puree solids. Mastication of the gracher was deemed to be within functional limits. He needed 1:1 assistance to eat today if given and cup or a cracker in his hand he did not accept it. He was able to tolerated Thin Liquids via Ice chip, Spoon and administered Straw sip with no overt s/s of aspiration. YOUTH COUNSELOR recommending upgrade to Chopped/Advanced Solids (NDD3) and Thin Liquids. Meds Whole with Puree. YOUTH COUNSELOR will follow-up to monitor tolerance. Assessment: Psychology Lecturer Clinican/Clinical Fellow: No Supervisory Statement: I have reviewed and agree with the student/clinical fellow's documentation: N/A Speech Language Pathologist: Levi Velazquez M.A., [facility]-YOUTH COUNSELOR
--- NOTE | 2024-05-19 13:00 | PC.NURSE ---
AEROSPACE MANAGER at bedside- diet changed to regular chopped- pt still refusing to eat- AEROSPACE MANAGER will reach out to dietary to add ensure to his diet
--- NOTE | 2024-05-19 13:36 | HO.PM.IMPN ---
Subjective Subjective Date of Service: 05/19/24 Interval History: Patient awake, declined pureed food, when asked if he wants to drink juice he nodded yes, denies pain, make eye contact but does not communicate in full sentence. Review of Systems Patient awake but not verbalizing or answering questions other than yes or no Physical Exam Vital Signs: Vital Signs: Last Vital Signs Temp 99.0 F 05/19/24 07:07 Pulse 100 05/19/24 08:22 Resp 18 05/19/24 08:22 BP 145/68 H 05/19/24 08:22 Pulse Ox 97 05/19/24 08:22 O2 Del Method Room Air 05/19/24 08:22 O2 Flow Rate 2 05/17/24 14:20 BMI result Body Mass Index 25.1 Const: Other: General awake alert, sitting on chair, in no acute distress. Neck no JVD. CVS regular rate rhythm, Respiratory lungs clear to auscultation, no respiratory distress Gastrointestinal abdomen soft, non tender, urostomy in place Extremities no edema. Neuro moving all 4 extremity speech clear. Skin no rash Objective Data Active Medications Fentanyl (Fentanyl 25 Mcg Patch.Td72) 25 mcg TRANSDERMA Q72H BALA Hydromorphone HCl (Hydromorphone Hcl 1 Mg/Ml Syringe) 1 mg IVPUSH Q6H BALA; Protocol Last Admin: 05/19/24 07:52 Dose: 1 mg Documented By: RAFAELA Hydromorphone HCl (Hydromorphone Hcl 0.5 Mg/0.5 Ml Syringe) 0.5 mg IVPUSH Q2H PRN; Protocol PRN Reason: Pain, Severe (Pain Scale 7-10) Last Admin: 05/19/24 03:28 Dose: 0.5 mg Documented By: ALISON Lorazepam (Lorazepam 2 Mg/Ml Vial) 0.5 mg IVPUSH Q4H PRN PRN Reason: anxiety/restlessness Last Admin: 05/19/24 03:37 Dose: 0.5 mg Documented By: ALISON Labs 05/15/24 12:43 05/15/24 12:43 Assessment and Plan (1) Metastatic cancer: Status: Acute (2) Uncontrolled pain: Status: Acute Plan 74-year-old gentleman with past medical history significant for metastatic bladder cancer, chronic kidney disease stage 3, hypertension, mood disorder, history of asthma, 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 Metastatic bladder cancer with Mets admitted due to worsening pain not responding to oral analgesics under [facility] hospice Continue IV Dilaudid scheduled and as needed IV Ativan as needed for anxiety as per GI IP hospice dc Scopolamine patch since no secretions Oxygen for comfort Seen by MONOTYPE MACHINIST they upgraded diet to chopped/advanced solids NDD 3 and thin liquids, meds whole with puree MONOTYPE MACHINIST will follow to monitor tolerance. Spoke with hospice nurse discussed regarding fentanyl patch will place on 25 mcg q.72 hours patch and adjust dose as tolerated. Leakage around ostomy Seen by wound care Coloplast barrier ring along with convex pouch and curved barrier strips applied without complications. Un stageable pressure injury left heel, seen by wound nurse they recommend offload and dura fiber Ag for moisture management, follow recommendation In regard to chronic medical issues including chronic kidney disease stage 3, hypertension, mood disorder, asthma, transitional cell carcinoma of left kidney, hold all home medications. DNR DNI Quality Stroke Does the patient have a stroke diagnosis?: No VTE Prior VTE?: No VTE Risk Level:: Medical - moderate - high VTE Device Contraindication: Treatment Not Indicated VTE Drug Contraindication: Treatment Not Indicated
--- NOTE | 2024-05-19 14:30 | PC.NURSE ---
Spoke with hospice with recommendations to change medication for better pain control- Hospice spoke with with recommendations
[2024-05-19] MEDS: fentaNYL 25 MCG PATCH.TD72 TRANSDERMA (14:56)
[2024-05-20] MEDS: HYDROmorphone HCl 1 MG/ML SYRINGE IVPUSH ×4 (01:08→20:11)
[2024-05-20] MEDS: LORazepam 2 MG/ML VIAL 0.5 MG IVPUSH ×3 (01:19→20:18)
[2024-05-20] MEDS: HYDROmorphone HCl 0.5 MG/0.5 ML SYRINGE IVPUSH ×4 (02:56→22:48)
[2024-05-20 03:07] VITALS: BP 166/76; PULSE 97; RESP 18; TEMP 36.8; O2SAT 94
[2024-05-20 07:46] VITALS: RESP 22
[2024-05-20 07:51] VITALS: BP 148/69; PULSE 87; RESP 18; TEMP 36.5; O2SAT 94
--- NOTE | 2024-05-20 09:57 | P.PNIM_ITS ---
Subjective Subjective Date of Service: 05/20/24 Interval History: Being followed for [facility] hospice Sitting on bed eating breakfast complaining about food being cold and soft, complaining of generalized pain, no acute events overnight, stable oxygenation. Review of Systems All other symptoms reviewed and negative. Physical Exam 2 Vital Signs: Vital Signs: Last Vital Signs Temp 97.7 F 05/20/24 07:51 Pulse 87 05/20/24 07:51 Resp 18 05/20/24 07:51 BP 148/69 H 05/20/24 07:51 Pulse Ox 94 05/20/24 07:51 O2 Del Method Nasal Cannula 05/20/24 07:51 O2 Flow Rate 2 05/20/24 07:51 BMI result Body Mass Index 25.1 Const: Other: General awake alert, sitting on chair, in no acute distress. Neck no JVD. CVS regular rate rhythm, Respiratory lungs clear to auscultation, no respiratory distress Gastrointestinal abdomen soft, non tender, urostomy in place cloudy urine with leakage Extremities no edema. Neuro moving all 4 extremity speech clear. Skin no rash Objective Data Active Medications Acetaminophen (Acetaminophen 325 Mg Tablet) 650 mg PO Q6H PRN PRN Reason: fever Fentanyl (Fentanyl 25 Mcg Patch.Td72) 25 mcg TRANSDERMA Q72H BALA Last Admin: 05/19/24 14:56 Dose: 25 mcg Documented By: RAFAELA Hydromorphone HCl (Hydromorphone Hcl 1 Mg/Ml Syringe) 1 mg IVPUSH Q6H BALA; Protocol Last Admin: 05/20/24 06:33 Dose: 1 mg Documented By: SCOTTIE Hydromorphone HCl (Hydromorphone Hcl 0.5 Mg/0.5 Ml Syringe) 0.5 mg IVPUSH Q2H PRN; Protocol PRN Reason: Pain, Severe (Pain Scale 7-10) Last Admin: 05/20/24 07:46 Dose: 0.5 mg Documented By: ARTIE Lorazepam (Lorazepam 2 Mg/Ml Vial) 0.5 mg IVPUSH Q4H PRN PRN Reason: anxiety/restlessness Last Admin: 05/20/24 01:19 Dose: 0.5 mg Documented By: SCOTTIE Labs 05/15/24 12:43 05/15/24 12:43 Assessment and Plan (1) Metastatic cancer: Status: Acute (2) Uncontrolled pain: Status: Acute Plan 74-year-old gentleman with past medical history significant for metastatic bladder cancer, chronic kidney disease stage 3, hypertension, mood disorder, history of asthma, 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 Metastatic bladder cancer with Mets admitted due to worsening pain not responding to oral analgesics under [facility] hospice Continue IV Dilaudid scheduled and as needed IV Ativan as needed for anxiety as per GI IP hospice dc Scopolamine patch since no secretions Oxygen for comfort Seen by FINANCIAL COUNSELOR they upgraded diet to chopped/advanced solids NDD 3 and thin liquids, meds whole with puree or crushed FINANCIAL COUNSELOR will follow to monitor tolerance. Spoke with hospice nurse discussed regarding fentanyl patch will place on 25 mcg q.72 hours patch and adjust dose as tolerated. Leakage around ostomy Seen by wound care Coloplast barrier ring along with convex pouch and curved barrier strips applied without complications. Being followed by wound nurse due to recurrent leakage Un stageable pressure injury left heel, seen by wound nurse they recommend offload and dura fiber Ag for moisture management, follow recommendation Intermittent asthma will resume albuterol inhaler as per patient request, no acute exacerbation In regard to chronic medical issues including chronic kidney disease stage 3, hypertension, mood disorder, transitional cell carcinoma of left kidney, hold all home medications. DNR DNI Quality Stroke Does the patient have a stroke diagnosis?: No VTE Prior VTE?: No VTE Risk Level:: Medical - moderate - high VTE Device Contraindication: Treatment Not Indicated VTE Drug Contraindication: Treatment Not Indicated
--- NOTE | 2024-05-20 12:40 | MHC.SL.SWA ---
Speech Pathologist Impression:Oralpharyngeal Dysphagia (pt now on hospice, no further SALES SUPERINTENDENT intervention indicated, SALES SUPERINTENDENT to be consulted if appropriate) Risk of Aspiration Due to: Medically Fragile Reduced Cognition Dysphasia Diet Status: 05/20 Pt has transitioned to hospice, [facility] regular diet w/thin liquids, aspiration precautions Liquid Consistency and Strategies for Safe Swallow: Liquid Intake Recommendation: Thin Liquid Intake Strategies: Small Sips Solid Food Consistency: Dietary Recommendations: Regular Additional Modifications to Solid Foods: SALES SUPERINTENDENT recommending upgrade to Chopped/Advanced Solids (NDD3) and Thin Liquids. Meds Whole with Puree. SALES SUPERINTENDENT will follow-up to monitor tolerance. Oral Medication Intake: Whole with Puree Please contact the pharmacy regarding appropriate crushable or liquid drug formulations that are available whenever modified delivery is recommended. Compensatory Strategies and Precautions to be Taken for Safe Swallow: Sitting Upright (90 deg) Small Bites and Sips Alternate Liquids/Solids Rate of Ingestion Change Supervision While Eating and Drinking for Safe Swallow: Total Assistance (1:1) Foods to Avoid: Swallowing Recommended Treatments: Compens. Strategy Educat. Recommendation for Speech: Inpatient Speech Therapy Comment: Pt has transitioned to hospice, no further SALES SUPERINTENDENT intervention indicated. Education provided to pt and family on aspiration precautions and safety strategies during PO intake. Pt and family verbalize understanding, MD notified of [facility] diet change. SALES SUPERINTENDENT to be consulted as appropriate. Frequency/Duration: Date Range for Service Req: Timeline to reassess: Contract Designer Clinican/Clinical Fellow: No Supervisory Statement: I have reviewed and agree with the student/clinical fellow's documentation: N/A Speech Language Pathologist: Ellie Sosa M.S., [facility]-SALES SUPERINTENDENT
--- NOTE | 2024-05-20 13:03 | MHC.CM.PN ---
per domi vásquez for hvns/hospice family is working with financial counselor for [employer] pt unable to go home due to care needs referrals made to snf
--- NOTE | 2024-05-20 14:51 | HO.OSTOMY ---
Ostomy Consult: Follow up 74yr old?Male admitted to [facility] on 05/18/24 - See progress notes and H&P for detailed history.?Ostomy consult followup for Urostomy with leaking and difficult to pouch stoma.? Patient agreeable to assessment and photo documentation.? Patient is alert and awake but not able to make meaningful conversation. Patient is known to this abstract writer from previous consultations. Patient is known to use a Convex pouch normally as pouch adherence difficult due to it being with in his crease of his abdomen. He is agreeable to a pouch change into Coloplast Convex pouch # [id number] (only available from in wound care nurse 2 left at bedside for future use). The creases on either side at 3 and 9 o'clock were filled with Brava Barrier Strip Paste (Storeroom#[id number]) including his umbillicus as this was a source of leaking when assessed. Pouch cut to 25MM oval. Pouch completed with Coloplast Elastic C strips to hold in place and a Brava Belt. (These are also only available from inpt wound care nurse). Please reuse belt this is not a onetime use item. Stoma when sitting within crease Stoma - red moist round and above skin level but with in skin fold - needs convexity. Peristomal skin intact. Coloplast barrier ring used along with convex pouch [id number] and curved barrier strips to seal and belt. He was agreeable to these steps. Applied without complications.
[2024-05-20 15:27] VITALS: BP 158/74; PULSE 84; RESP 20; TEMP 36.5; O2SAT 97
--- NOTE | 2024-05-20 19:25 | PC.NURSE ---
Pt. belongings were sent 4th floor to black box.
[2024-05-20 19:28] VITALS: BP 154/70; PULSE 84; RESP 20; TEMP 37.4; O2SAT 98
[2024-05-21] MEDS: HYDROmorphone HCl 1 MG/ML SYRINGE IVPUSH ×5 (00:58→23:50)
[2024-05-21] MEDS: LORazepam 2 MG/ML VIAL 0.5 MG IVPUSH ×4 (01:06→21:06)
[2024-05-21] MEDS: HYDROmorphone HCl 0.5 MG/0.5 ML SYRINGE IVPUSH (03:09)
[2024-05-21 03:14] VITALS: BP 140/69; PULSE 96; RESP 20; TEMP 37.4; O2SAT 95
[2024-05-21 07:18] VITALS: BP 138/84; PULSE 87; RESP 18; TEMP 37.1; O2SAT 96
--- NOTE | 2024-05-21 07:22 | HO.PM.IMPN ---
Subjective Subjective Date of Service: 05/21/24 Interval History: Being followed for [facility] hospice for pain control in setting of metastatic bladder cancer No new issues, pain seems adequately controlled asking to have some fruites Review of Systems All other symptoms reviewed and negative. Physical Exam Vital Signs: Vital Signs: Last Vital Signs Temp 98.8 F 05/21/24 07:18 Pulse 87 05/21/24 07:18 Resp 18 05/21/24 07:18 BP 138/84 05/21/24 07:18 Pulse Ox 96 05/21/24 07:18 O2 Del Method Nasal Cannula 05/21/24 07:18 O2 Flow Rate 2 05/21/24 07:18 BMI result Body Mass Index 25.1 Const: Other: General awake alert, lying in bedr, in no acute distress. CVS regular rate rhythm, Respiratory lungs clear to auscultation, no respiratory distress Gastrointestinal abdomen soft, non tender, urostomy in place cloudy urine with leakage Extremities no edema. Neuro NF Skin no rash Objective Data Active Medications Acetaminophen (Acetaminophen 325 Mg Tablet) 650 mg PO Q6H PRN PRN Reason: fever Albuterol Sulfate (Albuterol Sulfate 90 Mcg 8 Gm Inhaler) 2 puff INHALE RQ4H PRN PRN Reason: sob Fentanyl (Fentanyl 25 Mcg Patch.Td72) 25 mcg TRANSDERMA Q72H [facility] Last Admin: 05/19/24 14:56 Dose: 25 mcg Documented By: RAFAELA Hydromorphone HCl (Hydromorphone Hcl 1 Mg/Ml Syringe) 1 mg IVPUSH Q6H [facility]; Protocol Last Admin: 05/21/24 06:19 Dose: 1 mg Documented By: PHILL Hydromorphone HCl (Hydromorphone Hcl 0.5 Mg/0.5 Ml Syringe) 0.5 mg IVPUSH Q2H PRN; Protocol PRN Reason: Pain, Severe (Pain Scale 7-10) Last Admin: 05/21/24 03:09 Dose: 0.5 mg Documented By: PHILL Lorazepam (Lorazepam 2 Mg/Ml Vial) 0.5 mg IVPUSH Q4H PRN PRN Reason: anxiety/restlessness Last Admin: 05/21/24 01:06 Dose: 0.5 mg Documented By: PHILL Labs 05/15/24 12:43 05/15/24 12:43 Microbiology Microbiology Results: Microbiology 05/15/24 13:02 Blood Culture - Final Blood - Venous No growth after 5 days. 05/15/24 12:43 Blood Culture - Final Blood - Venous No growth after 5 days. Blood Culture - Final No growth after 5 days. 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 presented to [place] [facility] due to uncontrolled pain, on patient complained of pain, started on IV Dilaudid as needed and Ativan as needed, MOLST form signed completed and admitted under [facility] hospice Metastatic bladder cancer with Mets under [facility] hospice for pain control Continue IV Dilaudid scheduled and as needed IV Ativan as needed for anxiety PRN Scopolamine patch for secretion Oxygen for comfort BOOM TRUCK DRIVER recommends chopped/advanced solids NDD 3 and thin liquids, meds whole with puree or crushed, BOOM TRUCK DRIVER will follow to monitor tolerance. Continue fentanyl and adjust dose as need for maximum pain control Leakage around ostomy Seen by wound care Coloplast barrier ring along with convex pouch and curved barrier strips applied without complications. Being followed by wound nurse due to recurrent leakage Unstageable pressure injury left heel, seen by wound nurse they recommend offload and dura fiber Ag for moisture management, follow recommendation Intermittent asthma will resume albuterol inhaler as per patient request, no acute exacerbation In regard to chronic medical issues including chronic kidney disease stage 3, hypertension, mood disorder, transitional cell carcinoma of left kidney, hold all home medications. DNR DNI Quality Stroke Does the patient have a stroke diagnosis?: No VTE Prior VTE?: No VTE Risk Level:: Medical - moderate - high VTE Device Contraindication: Treatment Not Indicated VTE Drug Contraindication: Treatment Not Indicated
[2024-05-21] MEDS: Albuterol Sulfate 90 MCG 8 GM INHALER 2 PUFF INHALE (14:25)
[2024-05-21 15:47] VITALS: BP 144/69; PULSE 85; RESP 18; TEMP 36.1; O2SAT 96
[2024-05-21 19:35] VITALS: BP 144/71; PULSE 88; RESP 20; TEMP 37.3; O2SAT 97
[2024-05-22 02:44] VITALS: BP 159/75; PULSE 84; RESP 20; TEMP 36.6; O2SAT 94
[2024-05-22] MEDS: HYDROmorphone HCl 0.5 MG/0.5 ML SYRINGE IVPUSH ×3 (04:30→17:21)
[2024-05-22] MEDS: HYDROmorphone HCl 1 MG/ML SYRINGE IVPUSH ×3 (06:07→20:31)
[2024-05-22 07:10] VITALS: BP 172/81; PULSE 79; RESP 17; TEMP 36.9; O2SAT 96
--- NOTE | 2024-05-22 07:49 | P.PNIM_ITS ---
Subjective Subjective Date of Service: 05/22/24 Interval History: Being followed for [facility] hospice for pain control in setting of metastatic bladder cancer No new issues, pain seems adequately controlled, has sitter for agitations Review of Systems All other symptoms reviewed and negative. Physical Exam 2 Vital Signs: Vital Signs: Last Vital Signs Temp 98.4 F 05/22/24 07:10 Pulse 79 05/22/24 07:10 Resp 17 05/22/24 07:10 BP 172/81 H 05/22/24 07:10 Pulse Ox 96 05/22/24 07:10 O2 Del Method Nasal Cannula 05/22/24 07:10 O2 Flow Rate 2 05/22/24 07:10 BMI result Body Mass Index 25.1 Const: Other: General awake alert, lying in bedr, in no acute distress. CVS regular rate rhythm, Respiratory lungs clear to auscultation, no respiratory distress Gastrointestinal abdomen soft, non tender, urostomy in place cloudy urine with leakage Extremities no edema. Neuro NF Skin no rash Objective Data Active Medications Acetaminophen (Acetaminophen 325 Mg Tablet) 650 mg PO Q6H PRN PRN Reason: fever Albuterol Sulfate (Albuterol Sulfate 90 Mcg 8 Gm Inhaler) 2 puff INHALE RQ4H PRN PRN Reason: sob Last Admin: 05/21/24 14:25 Dose: 2 puff Documented By: ABDIEL Fentanyl (Fentanyl 25 Mcg Patch.Td72) 25 mcg TRANSDERMA Q72H [facility] Last Admin: 05/19/24 14:56 Dose: 25 mcg Documented By: RAFAELA Hydromorphone HCl (Hydromorphone Hcl 1 Mg/Ml Syringe) 1 mg IVPUSH Q6H [facility]; Protocol Last Admin: 05/22/24 06:07 Dose: 1 mg Documented By: PHILL Hydromorphone HCl (Hydromorphone Hcl 0.5 Mg/0.5 Ml Syringe) 0.5 mg IVPUSH Q2H PRN; Protocol PRN Reason: Pain, Severe (Pain Scale 7-10) Last Admin: 05/22/24 04:30 Dose: 0.5 mg Documented By: PHILL Lorazepam (Lorazepam 2 Mg/Ml Vial) 0.5 mg IVPUSH Q4H PRN PRN Reason: anxiety/restlessness Last Admin: 05/21/24 21:06 Dose: 0.5 mg Documented By: PHILL Labs 05/15/24 12:43 05/15/24 12:43 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 presented to [place] ED due to uncontrolled pain, on patient complained of pain, started on IV Dilaudid as needed and Ativan as needed, MOLST form signed completed and admitted under [facility] hospice Metastatic bladder cancer with Mets under [facility] hospice for pain control Continue IV Dilaudid scheduled and as needed IV Ativan as needed for anxiety PRN Scopolamine patch for secretion Oxygen for comfort ETHYLENE OXIDE PANELBOARD OPERATOR recommends chopped/advanced solids NDD 3 and thin liquids, meds whole with puree or crushed, ETHYLENE OXIDE PANELBOARD OPERATOR will follow to monitor tolerance. Continue fentanyl and adjust dose as need for maximum pain control Leakage around ostomy Seen by wound care Coloplast barrier ring along with convex pouch and curved barrier strips applied without complications. Being followed by wound nurse due to recurrent leakage Unstageable pressure injury left heel, seen by wound nurse they recommend offload and dura fiber Ag for moisture management, follow recommendation Intermittent asthma will resume albuterol inhaler as per patient request, no acute exacerbation In regard to chronic medical issues including chronic kidney disease stage 3, hypertension, mood disorder, transitional cell carcinoma of left kidney, hold all home medications. DNR DNI awaiting placement Quality Stroke Does the patient have a stroke diagnosis?: No VTE Prior VTE?: No VTE Risk Level:: Medical - moderate - high VTE Device Contraindication: Treatment Not Indicated VTE Drug Contraindication: Treatment Not Indicated
[2024-05-22 08:12] VITALS: BP 128/62
[2024-05-22] MEDS: LORazepam 2 MG/ML VIAL 0.5 MG IVPUSH ×3 (08:15→21:34)
[2024-05-22] MEDS: fentaNYL 25 MCG PATCH.TD72 TRANSDERMA (12:30)
--- NOTE | 2024-05-22 12:30 | MHC.CM.PN ---
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 CM FOLLOWING
[2024-05-22 15:28] VITALS: BP 155/79; PULSE 78; RESP 14; TEMP 36.2; O2SAT 96
[2024-05-22] MEDS: Albuterol Sulfate 90 MCG 8 GM INHALER 2 PUFF INHALE (16:44)
[2024-05-22 19:44] VITALS: RESP 16
[2024-05-22 20:31] VITALS: RESP 17
[2024-05-23] MEDS: HYDROmorphone HCl 1 MG/ML SYRINGE IVPUSH ×3 (02:07→12:31)
[2024-05-23] MEDS: LORazepam 2 MG/ML VIAL 0.5 MG IVPUSH (04:10)
[2024-05-23 04:44] VITALS: RESP 17
[2024-05-23] MEDS: HYDROmorphone HCl 0.5 MG/0.5 ML SYRINGE IVPUSH ×3 (04:44→13:12)
--- NOTE | 2024-05-23 08:08 | P.PNIM_ITS ---
Subjective Subjective Date of Service: 05/23/24 Interval History: Being followed for [facility] hospice for pain control in setting of metastatic bladder cancer No new issues, pain seems adequately controlled, has sitter for agitations Review of Systems All other symptoms reviewed and negative. Physical Exam 2 Vital Signs: Vital Signs: Last Vital Signs Temp 97.1 F 05/22/24 15:28 Pulse 78 05/22/24 15:28 Resp 17 05/23/24 04:44 BP 155/79 H 05/22/24 15:28 Pulse Ox 96 05/22/24 15:28 O2 Del Method Room Air 05/22/24 15:28 O2 Flow Rate 2 05/22/24 07:10 BMI result Body Mass Index 25.1 Const: Other: appear comfortable, no distress Objective Data Active Medications Acetaminophen (Acetaminophen 325 Mg Tablet) 650 mg PO Q6H PRN PRN Reason: fever Albuterol Sulfate (Albuterol Sulfate 90 Mcg 8 Gm Inhaler) 2 puff INHALE RQ4H PRN PRN Reason: sob Last Admin: 05/22/24 16:44 Dose: 2 puff Documented By: ABDIEL Fentanyl (Fentanyl 25 Mcg Patch.Td72) 25 mcg TRANSDERMA Q72H [facility] Last Admin: 05/22/24 12:30 Dose: 25 mcg Documented By: ABDIEL Hydromorphone HCl (Hydromorphone Hcl 1 Mg/Ml Syringe) 1 mg IVPUSH Q6H [facility]; Protocol Last Admin: 05/23/24 07:30 Dose: 1 mg Documented By: PRETTY Hydromorphone HCl (Hydromorphone Hcl 0.5 Mg/0.5 Ml Syringe) 0.5 mg IVPUSH Q2H PRN; Protocol PRN Reason: Pain, Severe (Pain Scale 7-10) Last Admin: 05/23/24 04:44 Dose: 0.5 mg Documented By: GINETTE Lorazepam (Lorazepam 2 Mg/Ml Vial) 0.5 mg IVPUSH Q4H PRN PRN Reason: anxiety/restlessness Last Admin: 05/23/24 04:10 Dose: 0.5 mg Documented By: GINETTE Labs 05/15/24 12:43 05/15/24 12:43 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 presented to [place] ED due to uncontrolled pain, on patient complained of pain, started on IV Dilaudid as needed and Ativan as needed, MOLST form signed completed and admitted under [facility] hospice for comfort care Metastatic bladder cancer with Mets under [facility] hospice for pain control and comfort care Continue IV Dilaudid scheduled and as needed IV Ativan as needed for anxiety PRN Scopolamine patch for secretion Oxygen for comfort Leakage around ostomy Seen by wound care Coloplast barrier ring along with convex pouch and curved barrier strips applied without complications. Being followed by wound nurse due to recurrent leakage Unstageable pressure injury left heel, seen by wound nurse they recommend offload and dura fiber Ag for moisture management, follow recommendation Intermittent asthma will resume albuterol inhaler as per patient request, no acute exacerbation In regard to chronic medical issues including chronic kidney disease stage 3, hypertension, mood disorder, transitional cell carcinoma of left kidney, hold all home medications. DNR DNI/comfort measures only Quality Stroke Does the patient have a stroke diagnosis?: No VTE Prior VTE?: No VTE Risk Level:: Medical - moderate - high VTE Device Contraindication: Treatment Not Indicated VTE Drug Contraindication: Treatment Not Indicated
[2024-05-23] MEDS: HYDROmorphone HCl 1 MG/ML SYRINGE 1.5 MG IVPUSH ×3 (14:16→21:07)
[2024-05-23] MEDS: fentaNYL 50 MCG PATCH.TD72 TRANSDERMA (14:17)
[2024-05-23] MEDS: Albuterol Sulfate 90 MCG 8 GM INHALER 2 PUFF INHALE (16:39)
[2024-05-23] MEDS: LORazepam 2 MG/ML VIAL 1 MG IVPUSH ×2 (19:54→22:36)
[2024-05-24] MEDS: HYDROmorphone HCl 1 MG/ML SYRINGE 1.5 MG IVPUSH ×6 (01:11→21:56)
[2024-05-24] MEDS: LORazepam 2 MG/ML VIAL 1 MG IVPUSH ×3 (01:11→13:44)
[2024-05-24 03:03] VITALS: RESP 20
--- NOTE | 2024-05-24 06:54 | HO.PM.IMPN ---
Subjective Subjective Date of Service: 05/24/24 Interval History: Being followed for [facility] hospice and comfort care for pain control in setting of metastatic bladder cancer with cancer pain syndrome No new issues, pain seems adequately controlled, has sitter for agitations Review of Systems All other symptoms reviewed and negative. Physical Exam Vital Signs: Vital Signs: Last Vital Signs Temp 97.1 F 05/22/24 15:28 Pulse 78 05/22/24 15:28 Resp 20 05/24/24 03:03 BP 155/79 H 05/22/24 15:28 Pulse Ox 96 05/22/24 15:28 O2 Del Method Room Air 05/22/24 15:28 O2 Flow Rate 2 05/22/24 07:10 BMI result Body Mass Index 25.1 Const: Other: Awake, comfortable, no distress Objective Data Active Medications Acetaminophen (Acetaminophen 325 Mg Tablet) 650 mg PO Q6H PRN PRN Reason: fever Albuterol Sulfate (Albuterol Sulfate 90 Mcg 8 Gm Inhaler) 2 puff INHALE RQ4H PRN PRN Reason: sob Last Admin: 05/23/24 16:39 Dose: 2 puff Documented By: PRETTY Fentanyl (Fentanyl 50 Mcg Patch.Td72) 50 mcg TRANSDERMA Q72H [facility] Last Admin: 05/23/24 14:17 Dose: 50 mcg Documented By: PRETTY Hydromorphone HCl (Hydromorphone Hcl 1 Mg/Ml Syringe) 1.5 mg IVPUSH Q4H [facility]; Protocol Last Admin: 05/24/24 05:08 Dose: 1.5 mg Documented By: BALDEMAR Lorazepam (Lorazepam 2 Mg/Ml Vial) 1 mg IVPUSH Q2H PRN PRN Reason: anxiety/restlessness Last Admin: 05/24/24 05:09 Dose: 1 mg Documented By: BALDEMAR Labs 05/15/24 12:43 05/15/24 12:43 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 presented to [place] ED due to uncontrolled pain, on patient complained of pain, started on IV Dilaudid as needed and Ativan as needed, MOLST form signed completed and admitted under [facility] hospice for comfort care Metastatic bladder cancer with Mets and cancer pain syndrome under [facility] hospice for pain control and comfort care Continue IV Dilaudid scheduled and as needed--adust dose as needed for comforr IV Ativan as needed for anxiety PRN Scopolamine patch for secretion Oxygen for comfort Leakage around ostomy Seen by wound care Coloplast barrier ring along with convex pouch and curved barrier strips applied without complications. Being followed by wound nurse due to recurrent leakage Unstageable pressure injury left heel, seen by wound nurse they recommend offload and dura fiber Ag for moisture management, follow recommendation Intermittent-- albuterol inhaler as per patient request, no acute exacerbation In regard to chronic medical issues including chronic kidney disease stage 3, hypertension, mood disorder, transitional cell carcinoma of left kidney, hold all home medications. DNR DNI/comfort measures only Quality Stroke Does the patient have a stroke diagnosis?: No VTE Prior VTE?: No VTE Risk Level:: Medical - moderate - high VTE Device Contraindication: Treatment Not Indicated VTE Drug Contraindication: Treatment Not Indicated
[2024-05-24 07:16] VITALS: RESP 16
[2024-05-24 08:05] VITALS: O2SAT 93
[2024-05-24] MEDS: HYDROmorphone HCl 1 MG/ML SYRINGE IVPUSH ×2 (14:31→16:41)
[2024-05-24] MEDS: Haloperidol Lactate 5 MG/ML VIAL IVPUSH (15:26)
[2024-05-25] MEDS: LORazepam 2 MG/ML VIAL 1 MG IVPUSH ×2 (00:59→14:17)
[2024-05-25] MEDS: HYDROmorphone HCl 1 MG/ML SYRINGE IVPUSH ×3 (01:00→23:17)
[2024-05-25] MEDS: HYDROmorphone HCl 1 MG/ML SYRINGE 1.5 MG IVPUSH ×6 (02:24→22:01)
--- NOTE | 2024-05-25 07:39 | HO.PM.IMPN ---
Subjective Subjective Date of Service: 05/25/24 Interval History: Being followed for [facility] hospice and comfort care for pain control in setting of metastatic bladder cancer with cancer pain syndrome No new issues, pain seems adequately controlled, has sitter for agitations but is less agitated Physical Exam Vital Signs: Vital Signs: Last Vital Signs Temp 97.1 F 05/22/24 15:28 Pulse 78 05/22/24 15:28 Resp 16 05/24/24 07:16 BP 155/79 H 05/22/24 15:28 Pulse Ox 93 05/24/24 08:05 O2 Del Method Room Air 05/24/24 08:05 O2 Flow Rate 2 05/22/24 07:10 BMI result Body Mass Index 25.1 Const: Other: resting comfortable, without distress Objective Data Active Medications Acetaminophen (Acetaminophen 325 Mg Tablet) 650 mg PO Q6H PRN PRN Reason: fever Albuterol Sulfate (Albuterol Sulfate 90 Mcg 8 Gm Inhaler) 2 puff INHALE RQ4H PRN PRN Reason: sob Last Admin: 05/23/24 16:39 Dose: 2 puff Documented By: PRETTY Fentanyl (Fentanyl 50 Mcg Patch.Td72) 50 mcg TRANSDERMA Q72H [facility] Last Admin: 05/23/24 14:17 Dose: 50 mcg Documented By: PRETTY Haloperidol Lactate (Haloperidol Lactate 5 Mg/Ml Vial) 0.5 mg IVPUSH Q4H PRN PRN Reason: anxiety/restlessness Last Admin: 05/24/24 15:26 Dose: 0.5 mg Documented By: PRETTY Hydromorphone HCl (Hydromorphone Hcl 1 Mg/Ml Syringe) 1.5 mg IVPUSH Q4H [facility]; Protocol Last Admin: 05/25/24 02:24 Dose: 1.5 mg Documented By: JERONIMO Hydromorphone HCl (Hydromorphone Hcl 1 Mg/Ml Syringe) 1 mg IVPUSH Q2H PRN; Protocol PRN Reason: Pain, Severe (Pain Scale 7-10) Last Admin: 05/25/24 01:00 Dose: 1 mg Documented By: JERONIMO Lorazepam (Lorazepam 2 Mg/Ml Vial) 1 mg IVPUSH Q2H PRN PRN Reason: anxiety/restlessness Last Admin: 05/25/24 00:59 Dose: 1 mg Documented By: JERONIMO Labs 05/15/24 12:43 05/15/24 12:43 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 presented to [place] ED due to uncontrolled pain, on patient complained of pain, started on IV Dilaudid as needed and Ativan as needed, MOLST form signed completed and admitted under [facility] hospice for comfort care Metastatic bladder cancer with Mets and cancer pain syndrome under [facility] hospice for pain control and comfort care Continue IV Dilaudid scheduled and as needed--adust dose as needed for comfort IV Ativan, Haldol as needed for anxiety and restlessness PRN Scopolamine patch for secretion Oxygen for comfort Leakage around ostomy Seen by wound care Coloplast barrier ring along with convex pouch and curved barrier strips applied without complications. Being followed by wound nurse due to recurrent leakage Unstageable pressure injury left heel, seen by wound nurse they recommend offload and dura fiber Ag for moisture management, follow recommendation Intermittent-- albuterol inhaler as per patient request, no acute exacerbation In regard to chronic medical issues including chronic kidney disease stage 3, hypertension, mood disorder, transitional cell carcinoma of left kidney, hold all home medications. DNR DNI/comfort measures only Quality Stroke Does the patient have a stroke diagnosis?: No VTE Prior VTE?: No VTE Risk Level:: Medical - moderate - high VTE Device Contraindication: Treatment Not Indicated VTE Drug Contraindication: Treatment Not Indicated
[2024-05-25 13:09] VITALS: RESP 16
--- NOTE | 2024-05-25 16:25 | MHC.CM.PN ---
PT REMAINS GIP UNDER [facility]
[2024-05-26] MEDS: HYDROmorphone HCl 1 MG/ML SYRINGE 1.5 MG IVPUSH ×6 (02:16→21:03)
[2024-05-26] MEDS: fentaNYL 50 MCG PATCH.TD72 TRANSDERMA (13:31)
--- NOTE | 2024-05-26 14:28 | HO.OSTOMY ---
Addendum entered by Meena Silveira RN 05/27/24 10:49: A few days worth of special order pouch and C strips brought to bedside. Until able to order supply from purchasing. Original Note: Ostomy Consult: Follow up 74yr old?Male admitted to [facility] on 05/18/24 - See progress notes and H&P for detailed history.?Ostomy consult followup for Urostomy with leaking and difficult to pouch stoma.? Patient agreeable to assessment and photo documentation.? Patient is alert and awake but not able to make meaningful conversation at times. Patient is known to this global technical writer from previous consultations. Patient is known to use a Convex pouch normally as pouch adherence difficult due to it being with in his crease of his abdomen. He is agreeable to a pouch change into Coloplast Convex pouch # [id number] (only available from in wound care nurse 1 left at bedside for future use). The creases on either side at 3 and 9 o'clock were filled with Brava Barrier Strip Paste (Storeroom#[id number]) including his umbilicus as this was a source of leaking when assessed. Pouch cut to 25MM oval. Pouch completed with Coloplast Elastic C strips to hold in place and a Brava Belt. (These are also only available from inpt wound care nurse). Please reuse belt this is not a onetime use item. Step by Step Instructions: Lay patient flat to apply pouch - he has to many creases to bit in another position and get a good seal. Remove pouch every 3 days. Change sooner if you notice any leaking. ?Do not reinforce with tape. Clean skin around stoma with warm water and soft cloth. ?Avoid using soaps or lotions. ?Do not use Adhesive remover. *Soaps can contain aloes/lanolins/extracts which leave film on skin that will interfere with pouch adherence Pat skin dry. Prepare products; Cut ostomy pouch approximately 25MM round - Use Templates left at bedside, Coloplast Convex pouch [id number] (Special order). Pat skin dry again the next part must be done fast. Fill the 3 and 9 o'clock creases with Brava Barrier Strip Paste and the umbilicus as well. Remove adhesive paper backing from back of pouch wafer apply Gentle Warm pressure to seal the wafer to his skin. ? Complete pouch change with application of [place] Elastic C strips to allow for added adherence. ?Complete with belt application - pt instructed to wear the belt to for added pressure to correct the way the stoma faces. ? Supplies needed 3 and 9 o'clock area filled with brave strip paste Mendon Elastic C strips Pouch in place with belt Stoma - red moist round and above skin level but with in skin fold - needs convexity. Peristomal skin intact. Coloplast barrier ring used along with convex pouch [id number] and curved barrier strips to seal and belt. He was agreeable to these steps. Applied without complications.
--- NOTE | 2024-05-26 17:10 | HO.PM.IMPN ---
Subjective Subjective Date of Service: 05/26/24 Interval History: [facility] hospice Review of Systems denies new c/o Physical Exam Vital Signs: Vital Signs: Last Vital Signs Temp 97.1 F 05/22/24 15:28 Pulse 78 05/22/24 15:28 Resp 16 05/25/24 13:09 BP 155/79 H 05/22/24 15:28 Pulse Ox 93 05/24/24 08:05 O2 Del Method Room Air 05/24/24 08:05 O2 Flow Rate 2 05/22/24 07:10 BMI result Body Mass Index 25.1 resting comfortable, without distress. cvs: rrr, [id number]. res: clear to auscultation ,no rhonchii or wheezing abd: nd ,nt, bs present. : has some bladder area discomfort ext pulses present , no cyanosis . neuro: axo3 , nonfocal. Objective Data Active Medications Acetaminophen (Acetaminophen 325 Mg Tablet) 650 mg PO Q6H PRN PRN Reason: fever Albuterol Sulfate (Albuterol Sulfate 90 Mcg 8 Gm Inhaler) 2 puff INHALE RQ4H PRN PRN Reason: sob Last Admin: 05/23/24 16:39 Dose: 2 puff Documented By: PRETTY Bisacodyl (Bisacodyl 10 Mg Supp.Rect) 10 mg [place] BEDTIME PRN PRN Reason: Constipation Fentanyl (Fentanyl 50 Mcg Patch.Td72) 50 mcg TRANSDERMA Q72H BALA Last Admin: 05/26/24 13:31 Dose: 50 mcg Documented By: RAE Haloperidol Lactate (Haloperidol Lactate 5 Mg/Ml Vial) 0.5 mg IVPUSH Q4H PRN PRN Reason: anxiety/restlessness Last Admin: 05/24/24 15:26 Dose: 0.5 mg Documented By: PRETTY Hydromorphone HCl (Hydromorphone Hcl 1 Mg/Ml Syringe) 1.5 mg IVPUSH Q4H BALA; Protocol Last Admin: 05/26/24 13:30 Dose: 1.5 mg Documented By: RAE Hydromorphone HCl (Hydromorphone Hcl 1 Mg/Ml Syringe) 1 mg IVPUSH Q2H PRN; Protocol PRN Reason: Pain, Severe (Pain Scale 7-10) Last Admin: 05/25/24 23:17 Dose: 1 mg Documented By: MARI Lorazepam (Lorazepam 2 Mg/Ml Vial) 1 mg IVPUSH Q2H PRN PRN Reason: anxiety/restlessness Last Admin: 05/25/24 14:17 Dose: 1 mg Documented By: MARCK Senna (Sennosides 8.6 Mg Tablet) 17.2 mg PO BEDTIME PRN PRN Reason: Constipation Labs 05/15/24 12:43 05/15/24 12:43 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 plan: Continue IV Dilaudid scheduled and as needed--adust dose as needed for comfort,IV Ativan, Haldol as needed for anxiety and restlessness PRN Scopolamine patch for secretion Oxygen for comfort Leakage around ostomy:Seen by wound care Coloplast barrier ring along with convex pouch and curved barrier strips applied without complications. Being followed by wound nurse due to recurrent leakage Unstageable pressure injury left heel, seen by wound nurse they recommend offload and dura fiber Ag for moisture management, follow recommendation Intermittent-- albuterol inhaler as per patient request, no acute exacerbation In regard to chronic medical issues including chronic kidney disease stage 3, hypertension, mood disorder, transitional cell carcinoma of left kidney, hold all home medications. DNR DNI/comfort measures only Quality Stroke Does the patient have a stroke diagnosis?: No VTE Prior VTE?: No VTE Risk Level:: Medical - moderate - high VTE Device Contraindication: Treatment Not Indicated VTE Drug Contraindication: Treatment Not Indicated
[2024-05-26 21:03] VITALS: RESP 17
[2024-05-27] MEDS: HYDROmorphone HCl 1 MG/ML SYRINGE 1.5 MG IVPUSH ×6 (01:38→21:14)
[2024-05-27 05:14] VITALS: RESP 16
--- NOTE | 2024-05-27 11:29 | MHC.CM.PN ---
EMR REVIEWED. PT REMAINS UNDER [facility]PICE WITH [facility]. PT MAY NEED LTC PLACEMENT WITH HOSPICE CARE. PER FINANCIAL SERVICES, THE MH [facility] WAS FAXED YESTERDAY AND FS COUNSELOR WILL F/U ON TUESDAY 05/29. PT WILL NEED MH APPROVED FOR R AND B AT A SNF. CM CONTINUES TO FOLLOW.
[2024-05-27] MEDS: Albuterol Sulfate 90 MCG 8 GM INHALER 2 PUFF INHALE ×2 (13:24→21:24)
--- NOTE | 2024-05-27 15:38 | P.PNIM_ITS ---
Subjective Subjective Date of Service: 05/27/24 Interval History: [facility] hospice Review of Systems denies new c/o Physical Exam 2 Vital Signs: Vital Signs: Last Vital Signs Temp 97.1 F 05/22/24 15:28 Pulse 78 05/22/24 15:28 Resp 16 05/27/24 05:14 BP 155/79 H 05/22/24 15:28 Pulse Ox 93 05/24/24 08:05 O2 Del Method Room Air 05/24/24 08:05 O2 Flow Rate 2 05/22/24 07:10 BMI result Body Mass Index 25.1 resting comfortable, without distress. cvs: rrr, [id number]. res: clear to auscultation ,no rhonchii or wheezing abd: nd ,nt, bs present. : has some bladder area discomfort ext pulses present , no cyanosis . neuro: axo3 , nonfocal. Objective Data Active Medications Acetaminophen (Acetaminophen 325 Mg Tablet) 650 mg PO Q6H PRN PRN Reason: fever Albuterol Sulfate (Albuterol Sulfate 90 Mcg 8 Gm Inhaler) 2 puff INHALE RQ4H PRN PRN Reason: sob Last Admin: 05/27/24 13:24 Dose: 2 puff Documented By: STEFFANY Bisacodyl (Bisacodyl 10 Mg Supp.Rect) 10 mg [place] BEDTIME PRN PRN Reason: Constipation Fentanyl (Fentanyl 50 Mcg Patch.Td72) 50 mcg TRANSDERMA Q72H BALA Last Admin: 05/26/24 13:31 Dose: 50 mcg Documented By: RAE Haloperidol Lactate (Haloperidol Lactate 5 Mg/Ml Vial) 0.5 mg IVPUSH Q4H PRN PRN Reason: anxiety/restlessness Last Admin: 05/24/24 15:26 Dose: 0.5 mg Documented By: PRETTY Hydromorphone HCl (Hydromorphone Hcl 1 Mg/Ml Syringe) 1.5 mg IVPUSH Q4H BALA; Protocol Last Admin: 05/27/24 13:23 Dose: 1.5 mg Documented By: STEFFANY Hydromorphone HCl (Hydromorphone Hcl 1 Mg/Ml Syringe) 1 mg IVPUSH Q2H PRN; Protocol PRN Reason: Pain, Severe (Pain Scale 7-10) Last Admin: 05/25/24 23:17 Dose: 1 mg Documented By: MARI Lorazepam (Lorazepam 2 Mg/Ml Vial) 1 mg IVPUSH Q2H PRN PRN Reason: anxiety/restlessness Last Admin: 05/25/24 14:17 Dose: 1 mg Documented By: MARCK Senna (Sennosides 8.6 Mg Tablet) 17.2 mg PO BEDTIME PRN PRN Reason: Constipation Labs 05/15/24 12:43 05/15/24 12:43 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 plan: Continue IV Dilaudid scheduled and as needed--adust dose as needed for comfort,IV Ativan, Haldol as needed for anxiety and restlessness PRN Scopolamine patch for secretion Oxygen for comfort Leakage around ostomy:Seen by wound care Coloplast barrier ring along with convex pouch and curved barrier strips applied without complications. Being followed by wound nurse due to recurrent leakage Unstageable pressure injury left heel, seen by wound nurse they recommend offload and dura fiber Ag for moisture management, follow recommendation Intermittent-- albuterol inhaler as per patient request, no acute exacerbation In regard to chronic medical issues including chronic kidney disease stage 3, hypertension, mood disorder, transitional cell carcinoma of left kidney, hold all home medications. DNR DNI/comfort measures only Quality Stroke Does the patient have a stroke diagnosis?: No VTE Prior VTE?: No VTE Risk Level:: Medical - moderate - high VTE Device Contraindication: Treatment Not Indicated VTE Drug Contraindication: Treatment Not Indicated
[2024-05-27] MEDS: Haloperidol Lactate 5 MG/ML VIAL 1 MG IVPUSH (21:29)
[2024-05-28] MEDS: HYDROmorphone HCl 1 MG/ML SYRINGE 1.5 MG IVPUSH ×6 (01:31→21:16)
[2024-05-28 09:11] VITALS: BP 123/63; PULSE 89
--- NOTE | 2024-05-28 11:22 | P.PNIM_ITS ---
Subjective Subjective Date of Service: 05/28/24 Interval History: [facility] Review of Systems denies new c/o Review of Systems: Yes all other systems are reviewed and are negative Physical Exam 2 Vital Signs: Vital Signs: Last Vital Signs Temp 97.1 F 05/22/24 15:28 Pulse 89 05/28/24 09:11 Resp 16 05/27/24 05:14 BP 123/63 05/28/24 09:11 Pulse Ox 93 05/24/24 08:05 O2 Del Method Room Air 05/24/24 08:05 O2 Flow Rate 2 05/22/24 07:10 BMI result Body Mass Index 25.1 resting comfortable, without distress. cvs: rrr, [id number]. res: clear to auscultation ,no rhonchii or wheezing abd: nd ,nt, bs present. : has some bladder area discomfort ext pulses present , no cyanosis . neuro: axo3 , nonfocal. Objective Data Active Medications Acetaminophen (Acetaminophen 325 Mg Tablet) 650 mg PO Q6H PRN PRN Reason: fever Albuterol Sulfate (Albuterol Sulfate 90 Mcg 8 Gm Inhaler) 2 puff INHALE RQ4H PRN PRN Reason: sob Last Admin: 05/27/24 21:24 Dose: 2 puff Documented By: BALDEMAR Bisacodyl (Bisacodyl 10 Mg Supp.Rect) 10 mg [place] BEDTIME PRN PRN Reason: Constipation Fentanyl (Fentanyl 50 Mcg Patch.Td72) 50 mcg TRANSDERMA Q72H BALA Last Admin: 05/26/24 13:31 Dose: 50 mcg Documented By: RAE Haloperidol Lactate (Haloperidol Lactate 5 Mg/Ml Vial) 1 mg IVPUSH Q4H PRN PRN Reason: anxiety/restlessness Last Admin: 05/27/24 21:29 Dose: 1 mg Documented By: BALDEMAR Hydromorphone HCl (Hydromorphone Hcl 1 Mg/Ml Syringe) 1.5 mg IVPUSH Q4H BALA; Protocol Last Admin: 05/28/24 09:09 Dose: 1.5 mg Documented By: JUAN JOSE Hydromorphone HCl (Hydromorphone Hcl 1 Mg/Ml Syringe) 1 mg IVPUSH Q2H PRN; Protocol PRN Reason: Pain, Severe (Pain Scale 7-10) Last Admin: 05/25/24 23:17 Dose: 1 mg Documented By: MARI Lassiter (Sennosides 8.6 Mg Tablet) 17.2 mg PO BEDTIME PRN PRN Reason: Constipation Labs 05/15/24 12:43 05/15/24 12:43 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 plan: Continue IV Dilaudid scheduled and as needed--adust dose as needed for comfort,IV Ativan, Haldol as needed for anxiety and restlessness PRN Scopolamine patch for secretion Oxygen for comfort Leakage around ostomy:Seen by wound care Coloplast barrier ring along with convex pouch and curved barrier strips applied without complications. Being followed by wound nurse due to recurrent leakage Unstageable pressure injury left heel, seen by wound nurse they recommend offload and dura fiber Ag for moisture management, follow recommendation Intermittent-- albuterol inhaler as per patient request, no acute exacerbation In regard to chronic medical issues including chronic kidney disease stage 3, hypertension, mood disorder, transitional cell carcinoma of left kidney, hold all home medications. DNR DNI/comfort measures only Quality Stroke Does the patient have a stroke diagnosis?: No VTE Prior VTE?: No VTE Risk Level:: Medical - moderate - high VTE Device Contraindication: Treatment Not Indicated VTE Drug Contraindication: Treatment Not Indicated
[2024-05-28] MEDS: Albuterol Sulfate 90 MCG 8 GM INHALER 2 PUFF INHALE ×3 (13:32→23:45)
[2024-05-28] MEDS: Haloperidol Lactate 5 MG/ML VIAL 1 MG IVPUSH (23:23)
[2024-05-28] MEDS: HYDROmorphone HCl 1 MG/ML SYRINGE IVPUSH (23:47)
[2024-05-29] MEDS: HYDROmorphone HCl 1 MG/ML SYRINGE 1.5 MG IVPUSH ×3 (01:48→09:00)
[2024-05-29 08:00] VITALS: BP 138/75; PULSE 75; RESP 14; TEMP 37.1; O2SAT 93
[2024-05-29] MEDS: polyethylene glycoL 3350 17 GM POWD.PACK PO (09:00)
[2024-05-29] MEDS: Docusate Sodium 100 MG CAPSULE PO ×2 (09:00→19:51)
[2024-05-29] MEDS: Albuterol Sulfate 90 MCG 8 GM INHALER 2 PUFF INHALE (10:37)
--- NOTE | 2024-05-29 11:22 | MHC.CM.PN ---
EMR REVIEWED. PT REMAINS UNDER [facility] WITH [facility]. PT MAY NEED LTC PLACEMENT WITH HOSPICE CARE. PER FINANCIAL SERVICES, THE MH [facility] WAS FAXED ON 05/26/24 AND FS COUNSELOR WILL F/U TODAY. PT WILL NEED MH APPROVED FOR ROOM AND BOARD AT A SNF. CM CONTINUES TO FOLLOW.
[2024-05-29] MEDS: HYDROmorphone HCl 1 MG/ML SYRINGE IVPUSH ×2 (12:22→17:48)
--- NOTE | 2024-05-29 12:23 | P.PNIM_ITS ---
Subjective Subjective Date of Service: 05/29/24 Interval History: [facility] hospice Review of Systems seems similar seems upset ? advised for po intake Physical Exam 2 Vital Signs: Vital Signs: Last Vital Signs Temp 98.7 F 05/29/24 08:00 Pulse 75 05/29/24 08:00 Resp 14 05/29/24 08:00 BP 138/75 05/29/24 08:00 Pulse Ox 93 05/29/24 08:00 O2 Del Method Room Air 05/29/24 08:00 O2 Flow Rate 2 05/22/24 07:10 BMI result Body Mass Index 25.1 resting comfortable, without distress. cvs: rrr, [id number]. res: clear to auscultation ,no rhonchii or wheezing abd: nd ,nt, bs present. : has some bladder area discomfort ext pulses present , no cyanosis . neuro: axo3 , nonfocal. Objective Data Active Medications Acetaminophen (Acetaminophen 325 Mg Tablet) 650 mg PO Q6H PRN PRN Reason: fever Albuterol Sulfate (Albuterol Sulfate 90 Mcg 8 Gm Inhaler) 2 puff INHALE RQ4H PRN PRN Reason: sob Last Admin: 05/29/24 10:37 Dose: 2 puff Documented By: DARCI Bisacodyl (Bisacodyl 10 Mg Supp.Rect) 10 mg [place] BEDTIME PRN PRN Reason: Constipation Docusate Sodium (Docusate Sodium 100 Mg Capsule) 100 mg PO BID [facility] Last Admin: 05/29/24 09:00 Dose: 100 mg Documented By: JUAN JOSE Fentanyl (Fentanyl 50 Mcg Patch.Td72) 50 mcg TRANSDERMA Q72H [facility] Last Admin: 05/26/24 13:31 Dose: 50 mcg Documented By: RAE Haloperidol Lactate (Haloperidol Lactate 5 Mg/Ml Vial) 1 mg IVPUSH Q4H PRN PRN Reason: anxiety/restlessness Last Admin: 05/28/24 23:23 Dose: 1 mg Documented By: BALDEMAR Hydromorphone HCl (Hydromorphone Hcl 1 Mg/Ml Syringe) 1 mg IVPUSH Q2H PRN; Protocol PRN Reason: Pain, Severe (Pain Scale 7-10) Last Admin: 05/29/24 12:22 Dose: 1 mg Documented By: HO.PARROWA Hydromorphone HCl (Hydromorphone Hcl 2 Mg Tablet) 1 mg PO Q4H PRN PRN Reason: Pain, Moderate(Pain Scale 4-6) Lorazepam (Lorazepam 1 Mg Tablet) 1 mg PO BID PRN PRN Reason: anxiety/restlessness Polyethylene Glycol (Polyethylene Glycol 3350 17 Gm Powd.Pack) 17 gm PO DAILY [facility]A Last Admin: 05/29/24 09:00 Dose: 17 gm Documented By: JUAN JOSE Senna (Sennosides 8.6 Mg Tablet) 17.2 mg PO BEDTIME PRN PRN Reason: Constipation Labs 05/15/24 12:43 05/15/24 12:43 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 plan: Continue IV Dilaudid scheduled and as needed--adust dose as needed for comfort,IV Ativan, Haldol as needed for anxiety and restlessness PRN Scopolamine patch for secretion Oxygen for comfort Leakage around ostomy:Seen by wound care Coloplast barrier ring along with convex pouch and curved barrier strips applied without complications. Being followed by wound nurse due to recurrent leakage Unstageable pressure injury left heel, seen by wound nurse they recommend offload and dura fiber Ag for moisture management, follow recommendation Intermittent-- albuterol inhaler as per patient request, no acute exacerbation In regard to chronic medical issues including chronic kidney disease stage 3, hypertension, mood disorder, transitional cell carcinoma of left kidney, hold all home medications. DNR DNI/comfort measures only Quality Stroke Does the patient have a stroke diagnosis?: No VTE Prior VTE?: No VTE Risk Level:: Medical - moderate - high VTE Device Contraindication: Treatment Not Indicated VTE Drug Contraindication: Treatment Not Indicated
[2024-05-29] MEDS: fentaNYL 50 MCG PATCH.TD72 TRANSDERMA (14:14)
[2024-05-29] MEDS: HYDROmorphone HCl 2 MG TABLET 1 MG PO ×2 (15:37→19:51)
[2024-05-29] MEDS: traZODone HCL 100 MG TABLET PO (19:51)
[2024-05-30] MEDS: Haloperidol Lactate 5 MG/ML VIAL 1 MG IVPUSH (01:41)
[2024-05-30] MEDS: HYDROmorphone HCl 1 MG/ML SYRINGE IVPUSH ×2 (01:47→05:59)
[2024-05-30 01:50] VITALS: BP 114/65; PULSE 94
[2024-05-30] MEDS: Ondansetron ODT 4 MG TAB.RAPDIS TRANSLINGU (02:21)
[2024-05-30] MEDS: HYDROmorphone HCl 2 MG TABLET 1 MG PO ×3 (09:01→21:07)
[2024-05-30] MEDS: Docusate Sodium 100 MG CAPSULE PO (09:02)
[2024-05-30] MEDS: polyethylene glycoL 3350 17 GM POWD.PACK PO (09:02)
--- NOTE | 2024-05-30 13:26 | P.PNIM_ITS ---
Subjective Subjective Date of Service: 05/30/24 Interval History: [facility] Review of Systems no overnight events seems similar Physical Exam 2 Vital Signs: Vital Signs: Last Vital Signs Temp 98.7 F 05/29/24 08:00 Pulse 94 05/30/24 01:50 Resp 14 05/29/24 08:00 BP 114/65 05/30/24 01:50 Pulse Ox 93 05/29/24 08:00 O2 Del Method Room Air 05/29/24 08:00 O2 Flow Rate 2 05/22/24 07:10 BMI result Body Mass Index 25.1 resting comfortable, without distress. cvs: rrr, [id number]. res: clear to auscultation ,no rhonchii or wheezing abd: nd ,nt, bs present. : has some bladder area discomfort ext pulses present , no cyanosis . neuro: axo3 , nonfocal. Objective Data Active Medications Acetaminophen (Acetaminophen 325 Mg Tablet) 650 mg PO Q6H PRN PRN Reason: fever Albuterol Sulfate (Albuterol Sulfate 90 Mcg 8 Gm Inhaler) 2 puff INHALE RQ4H PRN PRN Reason: sob Last Admin: 05/29/24 10:37 Dose: 2 puff Documented By: DARCI Bisacodyl (Bisacodyl 10 Mg Supp.Rect) 10 mg [place] BEDTIME PRN PRN Reason: Constipation Docusate Sodium (Docusate Sodium 100 Mg Capsule) 100 mg PO BID [facility] Last Admin: 05/30/24 09:02 Dose: 100 mg Documented By: ALVARO Fentanyl (Fentanyl 50 Mcg Patch.Td72) 50 mcg TRANSDERMA Q72H [facility] Last Admin: 05/29/24 14:14 Dose: 50 mcg Documented By: JUAN JOSE Haloperidol Lactate (Haloperidol Lactate 5 Mg/Ml Vial) 1 mg IVPUSH Q4H PRN PRN Reason: anxiety/restlessness Last Admin: 05/30/24 01:41 Dose: 1 mg Documented By: KETAN Hydromorphone HCl (Hydromorphone Hcl 1 Mg/Ml Syringe) 1 mg IVPUSH Q2H PRN; Protocol PRN Reason: Pain, Severe (Pain Scale 7-10) Last Admin: 05/30/24 05:59 Dose: 1 mg Documented By: KETAN Hydromorphone HCl (Hydromorphone Hcl 2 Mg Tablet) 1 mg PO Q4H PRN PRN Reason: Pain, Moderate(Pain Scale 4-6) Last Admin: 05/30/24 09:01 Dose: 1 mg Documented By: ALVARO Lorazepam (Lorazepam 1 Mg Tablet) 1 mg PO BID PRN PRN Reason: anxiety/restlessness Ondansetron HCl (Ondansetron Odt 4 Mg Tab.Rapdis) 4 mg TRANSLINGU Q6H PRN PRN Reason: Nausea and Vomiting Last Admin: 05/30/24 02:21 Dose: 4 mg Documented By: KETAN Polyethylene Glycol (Polyethylene Glycol 3350 17 Gm Powd.Pack) 17 gm PO DAILY [facility] Last Admin: 05/30/24 09:02 Dose: 17 gm Documented By: ALVARO Senna (Sennosides 8.6 Mg Tablet) 17.2 mg PO BEDTIME PRN PRN Reason: Constipation Trazodone HCl (Trazodone Hcl 100 Mg Tablet) 100 mg PO BEDTIME PRN PRN Reason: sleep Last Admin: 05/29/24 19:51 Dose: 100 mg Documented By: NANETTEQC Labs 05/15/24 12:43 05/15/24 12:43 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 plan: Continue IV Dilaudid scheduled and as needed--adust dose as needed for comfort,IV Ativan, Haldol as needed for anxiety and restlessness PRN Scopolamine patch for secretion Oxygen for comfort Leakage around ostomy:Seen by wound care Coloplast barrier ring along with convex pouch and curved barrier strips applied without complications. Being followed by wound nurse due to recurrent leakage Unstageable pressure injury left heel, seen by wound nurse they recommend offload and dura fiber Ag for moisture management, follow recommendation Intermittent-- albuterol inhaler as per patient request, no acute exacerbation In regard to chronic medical issues including chronic kidney disease stage 3, hypertension, mood disorder, transitional cell carcinoma of left kidney, hold all home medications. DNR DNI/comfort measures only Quality Stroke Does the patient have a stroke diagnosis?: No VTE Prior VTE?: No VTE Risk Level:: Medical - moderate - high VTE Device Contraindication: Treatment Not Indicated VTE Drug Contraindication: Treatment Not Indicated
[2024-05-30 22:07] VITALS: RESP 18
[2024-05-30] MEDS: traZODone HCL 100 MG TABLET PO (22:48)
[2024-05-31] MEDS: HYDROmorphone HCl 2 MG TABLET 1 MG PO ×2 (05:05→11:09)
--- NOTE | 2024-05-31 06:08 | PC.NURSE ---
0610-Urostomy remained intact, morning output 500ml yellow urine, medicated times 2 with po Dilaudid with some effect per patient this am dose. slept in naps, no s/sx acute resp distress.
--- NOTE | 2024-05-31 11:44 | P.PNIM_ITS ---
Subjective Subjective Date of Service: 05/31/24 Interval History: [facility] hosp[facility] Review of Systems no overnight events seems similar Physical Exam 2 Vital Signs: Vital Signs: Last Vital Signs Temp 98.7 F 05/29/24 08:00 Pulse 94 05/30/24 01:50 Resp 18 05/30/24 22:07 BP 114/65 05/30/24 01:50 Pulse Ox 93 05/29/24 08:00 O2 Del Method Room Air 05/29/24 08:00 O2 Flow Rate 2 05/22/24 07:10 BMI result Body Mass Index 25.1 resting comfortable, without distress. cvs: rrr, [id number]. res: clear to auscultation ,no rhonchii or wheezing abd: nd ,nt, bs present. : has some bladder area discomfort ext pulses present , no cyanosis . neuro: axo3 , nonfocal. Objective Data Active Medications Acetaminophen (Acetaminophen 325 Mg Tablet) 650 mg PO Q6H PRN PRN Reason: fever Albuterol Sulfate (Albuterol Sulfate 90 Mcg 8 Gm Inhaler) 2 puff INHALE RQ4H PRN PRN Reason: sob Last Admin: 05/29/24 10:37 Dose: 2 puff Documented By: DARCI Bisacodyl (Bisacodyl 10 Mg Supp.Rect) 10 mg [place] BEDTIME PRN PRN Reason: Constipation Docusate Sodium (Docusate Sodium 100 Mg Capsule) 100 mg PO BID [facility] Last Admin: 05/31/24 07:39 Dose: Not Given Documented By: MICHAELA Non-Admin Reason: Patient Refused Fentanyl (Fentanyl 50 Mcg Patch.Td72) 50 mcg TRANSDERMA Q72H [facility] Last Admin: 05/29/24 14:14 Dose: 50 mcg Documented By: JUAN JOSE Haloperidol Lactate (Haloperidol Lactate 5 Mg/Ml Vial) 1 mg IVPUSH Q4H PRN PRN Reason: anxiety/restlessness Last Admin: 05/30/24 01:41 Dose: 1 mg Documented By: KETAN Hydromorphone HCl (Hydromorphone Hcl 1 Mg/Ml Syringe) 1 mg IVPUSH Q2H PRN; Protocol PRN Reason: Pain, Severe (Pain Scale 7-10) Last Admin: 05/30/24 05:59 Dose: 1 mg Documented By: KETAN Hydromorphone HCl (Hydromorphone Hcl 2 Mg Tablet) 1 mg PO Q4H PRN PRN Reason: Pain, Moderate(Pain Scale 4-6) Last Admin: 05/31/24 11:09 Dose: 1 mg Documented By: MICHAELA Lorazepam (Lorazepam 1 Mg Tablet) 1 mg PO BID PRN PRN Reason: anxiety/restlessness Ondansetron HCl (Ondansetron Odt 4 Mg Tab.Rapdis) 4 mg TRANSLINGU Q6H PRN PRN Reason: Nausea and Vomiting Last Admin: 05/30/24 02:21 Dose: 4 mg Documented By: KETAN Polyethylene Glycol (Polyethylene Glycol 3350 17 Gm Powd.Pack) 17 gm PO DAILY [facility] Last Admin: 05/31/24 07:39 Dose: Not Given Documented By: MICHAELA Non-Admin Reason: Patient Refused Senna (Sennosides 8.6 Mg Tablet) 17.2 mg PO BEDTIME PRN PRN Reason: Constipation Trazodone HCl (Trazodone Hcl 100 Mg Tablet) 100 mg PO BEDTIME PRN PRN Reason: sleep Last Admin: 05/30/24 22:48 Dose: 100 mg Documented By: SEXK Labs 05/15/24 12:43 05/15/24 12:43 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 plan: Continue IV Dilaudid scheduled and as needed--adust dose as needed for comfort,IV Ativan, Haldol as needed for anxiety and restlessness PRN Scopolamine patch for secretion Oxygen for comfort Leakage around ostomy:Seen by wound care Coloplast barrier ring along with convex pouch and curved barrier strips applied without complications. Being followed by wound nurse due to recurrent leakage Unstageable pressure injury left heel, seen by wound nurse they recommend offload and dura fiber Ag for moisture management, follow recommendation Intermittent-- albuterol inhaler as per patient request, no acute exacerbation In regard to chronic medical issues including chronic kidney disease stage 3, hypertension, mood disorder, transitional cell carcinoma of left kidney, hold all home medications. DNR DNI/comfort measures only Quality Stroke Does the patient have a stroke diagnosis?: No VTE Prior VTE?: No VTE Risk Level:: Medical - moderate - high VTE Device Contraindication: Treatment Not Indicated VTE Drug Contraindication: Treatment Not Indicated
[2024-05-31] MEDS: oxyCODONE HCl Immed Release 5 MG TABLET 10 MG PO (21:06)
[2024-05-31] MEDS: Docusate Sodium 100 MG CAPSULE PO (21:06)
[2024-05-31] MEDS: traZODone HCL 100 MG TABLET PO (21:06)
[2024-06-01] MEDS: oxyCODONE HCl Immed Release 5 MG TABLET 10 MG PO ×4 (03:24→20:57)
[2024-06-01] MEDS: LORazepam 1 MG TABLET PO ×2 (03:24→23:25)
[2024-06-01] MEDS: Docusate Sodium 100 MG CAPSULE PO ×2 (08:35→20:57)
--- NOTE | 2024-06-01 11:21 | P.PNIM_ITS ---
Subjective Subjective Date of Service: 06/01/24 Interval History: [facility] hospice pain seems reasonably controlled. Review of Systems no overnight events seems similar Physical Exam 2 Vital Signs: Vital Signs: Last Vital Signs Temp 98.7 F 05/29/24 08:00 Pulse 94 05/30/24 01:50 Resp 18 05/30/24 22:07 BP 114/65 05/30/24 01:50 Pulse Ox 93 05/29/24 08:00 O2 Del Method Room Air 05/29/24 08:00 O2 Flow Rate 2 05/22/24 07:10 BMI result Body Mass Index 25.1 Const: Other: resting comfortable, without distress Objective Data Active Medications Acetaminophen (Acetaminophen 325 Mg Tablet) 650 mg PO Q6H PRN PRN Reason: fever Albuterol Sulfate (Albuterol Sulfate 90 Mcg 8 Gm Inhaler) 2 puff INHALE RQ4H PRN PRN Reason: sob Last Admin: 05/29/24 10:37 Dose: 2 puff Documented By: DARCI Bisacodyl (Bisacodyl 10 Mg Supp.Rect) 10 mg [place] BEDTIME PRN PRN Reason: Constipation Docusate Sodium (Docusate Sodium 100 Mg Capsule) 100 mg PO BID [facility] Last Admin: 06/01/24 08:35 Dose: 100 mg Documented By: MICHAELA Fentanyl (Fentanyl 50 Mcg Patch.Td72) 50 mcg TRANSDERMA Q72H [facility] Last Admin: 05/29/24 14:14 Dose: 50 mcg Documented By: JUAN JOSE Haloperidol (Haloperidol 1 Mg Tablet) 1 mg PO Q4H PRN PRN Reason: anxiety/restlessness Haloperidol Lactate (Haloperidol Lactate 5 Mg/Ml Vial) 1 mg IVPUSH Q4H PRN PRN Reason: anxiety/restlessness Last Admin: 05/30/24 01:41 Dose: 1 mg Documented By: KTEAN Lorazepam (Lorazepam 1 Mg Tablet) 1 mg PO BID PRN PRN Reason: anxiety/restlessness Last Admin: 06/01/24 03:24 Dose: 1 mg Documented By: SCOTTIE Ondansetron HCl (Ondansetron Odt 4 Mg Tab.Rapdis) 4 mg TRANSLINGU Q6H PRN PRN Reason: Nausea and Vomiting Last Admin: 05/30/24 02:21 Dose: 4 mg Documented By: KETAN Oxycodone HCl (Oxycodone Hcl Immed Release 5 Mg Tablet) 10 mg PO Q4H PRN PRN Reason: Pain, Severe (Pain Scale 7-10) Last Admin: 06/01/24 08:35 Dose: 10 mg Documented By: MICHAELA Polyethylene Glycol (Polyethylene Glycol 3350 17 Gm Powd.Pack) 17 gm PO DAILY [facility] Last Admin: 06/01/24 08:35 Dose: Not Given Documented By: MICHAELA Non-Admin Reason: Patient Refused Senna (Sennosides 8.6 Mg Tablet) 17.2 mg PO BEDTIME PRN PRN Reason: Constipation Trazodone HCl (Trazodone Hcl 100 Mg Tablet) 100 mg PO BEDTIME PRN PRN Reason: sleep Last Admin: 05/31/24 21:06 Dose: 100 mg Documented By: SCOTTIE Labs 05/15/24 12:43 05/15/24 12:43 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 continue oral pain med and fentanyl Leakage around ostomy:Seen by wound care Coloplast barrier ring along with convex pouch and curved barrier strips applied without complications. Being followed by wound nurse due to recurrent leakage Unstageable pressure injury left heel, seen by wound nurse they recommend offload and dura fiber Ag for moisture management, follow recommendation Intermittent-- albuterol inhaler as per patient request, no acute exacerbation In regard to chronic medical issues including chronic kidney disease stage 3, hypertension, mood disorder, transitional cell carcinoma of left kidney, hold all home medications. DNR DNI/comfort measures only Quality Stroke Does the patient have a stroke diagnosis?: No VTE Prior VTE?: No VTE Risk Level:: Medical - moderate - high VTE Device Contraindication: Treatment Not Indicated VTE Drug Contraindication: Treatment Not Indicated
--- NOTE | 2024-06-01 11:56 | MHC.CM.PN ---
Patient will discharge with [facility] hospice to a SNF. [employer] application has been sent by financial computer methods analyst, Perri, 05/26/24. She stated that she will follow up with [facility] today. The plan is to provide the facilities with the application for review. DP to snf on hospice via BLS.
[2024-06-01] MEDS: fentaNYL 50 MCG PATCH.TD72 TRANSDERMA (14:04)
[2024-06-01] MEDS: traZODone HCL 100 MG TABLET PO (20:57)
[2024-06-02] MEDS: oxyCODONE HCl Immed Release 5 MG TABLET 10 MG PO ×2 (06:05→18:11)
[2024-06-02 07:53] VITALS: BP 117/66; PULSE 69; RESP 16; TEMP 36.6; O2SAT 93
[2024-06-02] MEDS: polyethylene glycoL 3350 17 GM POWD.PACK PO (09:04)
[2024-06-02] MEDS: Docusate Sodium 100 MG CAPSULE PO ×2 (09:04→20:48)
--- NOTE | 2024-06-02 10:34 | HO.PM.IMPN ---
Subjective Subjective Date of Service: 06/02/24 Interval History: [facility] hospice pain seems reasonably controlled and doesn't want med adjustment at this time Review of Systems r Physical Exam Vital Signs: Vital Signs: Last Vital Signs Temp 97.9 F 06/02/24 07:53 Pulse 69 06/02/24 07:53 Resp 16 06/02/24 07:53 BP 117/66 06/02/24 07:53 Pulse Ox 93 06/02/24 07:53 O2 Del Method Room Air 06/02/24 07:53 O2 Flow Rate 2 05/22/24 07:10 BMI result Body Mass Index 25.1 Const: Other: resting comfortable, without distress Objective Data Active Medications Acetaminophen (Acetaminophen 325 Mg Tablet) 650 mg PO Q6H PRN PRN Reason: fever Albuterol Sulfate (Albuterol Sulfate 90 Mcg 8 Gm Inhaler) 2 puff INHALE RQ4H PRN PRN Reason: sob Last Admin: 05/29/24 10:37 Dose: 2 puff Documented By: DARCI Bisacodyl (Bisacodyl 10 Mg Supp.Rect) 10 mg [place] BEDTIME PRN PRN Reason: Constipation Docusate Sodium (Docusate Sodium 100 Mg Capsule) 100 mg PO BID [facility] Last Admin: 06/02/24 09:04 Dose: 100 mg Documented By: GYPSY Fentanyl (Fentanyl 50 Mcg Patch.Td72) 50 mcg TRANSDERMA Q72H [facility] Last Admin: 06/01/24 14:04 Dose: 50 mcg Documented By: MICHAELA Haloperidol (Haloperidol 1 Mg Tablet) 1 mg PO Q4H PRN PRN Reason: anxiety/restlessness Haloperidol Lactate (Haloperidol Lactate 5 Mg/Ml Vial) 1 mg IVPUSH Q4H PRN PRN Reason: anxiety/restlessness Last Admin: 05/30/24 01:41 Dose: 1 mg Documented By: KETAN Lorazepam (Lorazepam 1 Mg Tablet) 1 mg PO BID PRN PRN Reason: anxiety/restlessness Last Admin: 06/01/24 23:25 Dose: 1 mg Documented By: SCOTTIE Ondansetron HCl (Ondansetron Odt 4 Mg Tab.Rapdis) 4 mg TRANSLINGU Q6H PRN PRN Reason: Nausea and Vomiting Last Admin: 05/30/24 02:21 Dose: 4 mg Documented By: KETAN Oxycodone HCl (Oxycodone Hcl Immed Release 5 Mg Tablet) 10 mg PO Q4H PRN PRN Reason: Pain, Severe (Pain Scale 7-10) Last Admin: 06/02/24 06:05 Dose: 10 mg Documented By: SCOTTIE Polyethylene Glycol (Polyethylene Glycol 3350 17 Gm Powd.Pack) 17 gm PO DAILY [facility] Last Admin: 06/02/24 09:04 Dose: 17 gm Documented By: GYPSY Senna (Sennosides 8.6 Mg Tablet) 17.2 mg PO BEDTIME PRN PRN Reason: Constipation Trazodone HCl (Trazodone Hcl 100 Mg Tablet) 100 mg PO BEDTIME PRN PRN Reason: sleep Last Admin: 06/01/24 20:57 Dose: 100 mg Documented By: SCOTTIE Labs 05/15/24 12:43 05/15/24 12:43 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 continue oral pain med and fentanyl Leakage around ostomy:Seen by wound care Coloplast barrier ring along with convex pouch and curved barrier strips applied without complications. Being followed by wound nurse due to recurrent leakage Unstageable pressure injury left heel, seen by wound nurse they recommend offload and dura fiber Ag for moisture management, follow recommendation Intermittent-- albuterol inhaler as per patient request, no acute exacerbation In regard to chronic medical issues including chronic kidney disease stage 3, hypertension, mood disorder, transitional cell carcinoma of left kidney, hold all home medications. DNR DNI/comfort measures only Quality Stroke Does the patient have a stroke diagnosis?: No VTE Prior VTE?: No VTE Risk Level:: Medical - moderate - high VTE Device Contraindication: Treatment Not Indicated VTE Drug Contraindication: Treatment Not Indicated
--- NOTE | 2024-06-02 15:53 | HO.OSTOMY ---
Ostomy Consult: Follow up 74yr old?[place] [facility] [place] - See progress notes and H&P for detailed history.?Ostomy consult followup for Urostomy with leaking and difficult to pouch stoma.? Patient agreeable to assessment and photo documentation.? Patient is alert and awake plesant and making polite conversation at the time of my consult. Patient is known to this conventional mortgage underwriter from previous consultations. Patient is known to use a Convex pouch normally as pouch adherence difficult due to it being with in his crease of his abdomen. He is agreeable to a pouch change into Coloplast Convex pouch # [id number] (only available from inpt wound care nurse 1 left at bedside for future use). The creases on either side at 3 and 9 o'clock were filled with Brava Barrier Strip Paste (Storeroom#[id number]) including his umbilicus as this was a source of leaking when assessed. Pouch cut to 25MM oval. Pouch completed with Coloplast Elastic C strips to hold in place and a Brava Belt. (These are also only available from inpt wound care nurse). Please reuse belt this is not a onetime use item. Some pouch supplies remain at bedside - however pouch box ordered for patient supply - to arrive soon. Step by Step Instructions: Lay patient flat to apply pouch - he has to many creases to bit in another position and get a good seal. Remove pouch every 3 days. Change sooner if you notice any leaking. ?Do not reinforce with tape. Clean skin around stoma with warm water and soft cloth. ?Avoid using soaps or lotions. ?Do not use Adhesive remover. *Soaps can contain aloes/lanolins/extracts which leave film on skin that will interfere with pouch adherence Pat skin dry. Prepare products; Cut ostomy pouch approximately 25MM round - Use Templates left at bedside, Coloplast Convex pouch [id number] (Special order). Pat skin dry again the next part must be done fast. Fill the 3 and 9 o'clock creases with Brava Barrier Strip Paste and the umbilicus as well. Remove adhesive paper backing from back of pouch wafer apply Gentle Warm pressure to seal the wafer to his skin. ? Complete pouch change with application of [place] Elastic C strips to allow for added adherence. ?Complete with belt application - pt instructed to wear the belt to for added pressure to correct the way the stoma faces. ? Supplies needed 3 and 9 o'clock area filled with brave strip paste [place] Elastic C strips Pouch in place with belt Stoma - red moist round and above skin level but with in skin fold - needs convexity. Peristomal skin intact. Coloplast barrier ring used along with convex pouch [id number] and curved barrier strips to seal and belt. He was agreeable to these steps. Applied without complications.
[2024-06-02] MEDS: Acetaminophen 325 MG TABLET 650 MG PO (18:17)
[2024-06-02] MEDS: LORazepam 1 MG TABLET PO (18:17)
[2024-06-02] MEDS: traZODone HCL 100 MG TABLET PO (20:48)
[2024-06-03] MEDS: Acetaminophen 325 MG TABLET 650 MG PO ×3 (06:44→20:41)
[2024-06-03] MEDS: Albuterol Sulfate 90 MCG 8 GM INHALER 2 PUFF INHALE ×2 (06:47→22:14)
[2024-06-03] MEDS: oxyCODONE HCl Immed Release 5 MG TABLET 10 MG PO ×4 (06:53→23:33)
[2024-06-03] MEDS: LORazepam 1 MG TABLET PO (06:53)
[2024-06-03] MEDS: Docusate Sodium 100 MG CAPSULE PO ×2 (06:53→19:23)
--- NOTE | 2024-06-03 11:47 | HO.PM.IMPN ---
Subjective Subjective Date of Service: 06/03/24 Interval History: hospice gip pt reporting no new issues, appear comfortable Review of Systems r Physical Exam Vital Signs: Vital Signs: Last Vital Signs Temp 97.9 F 06/02/24 07:53 Pulse 69 06/02/24 07:53 Resp 16 06/02/24 07:53 BP 117/66 06/02/24 07:53 Pulse Ox 93 06/02/24 07:53 O2 Del Method Room Air 06/02/24 07:53 O2 Flow Rate 2 05/22/24 07:10 BMI result Body Mass Index 25.1 Const: Other: resting comfortable, without distress Objective Data Active Medications Acetaminophen (Acetaminophen 325 Mg Tablet) 650 mg PO Q6H PRN PRN Reason: fever Last Admin: 06/03/24 06:44 Dose: 650 mg Documented By: BALDEMAR Albuterol Sulfate (Albuterol Sulfate 90 Mcg 8 Gm Inhaler) 2 puff INHALE RQ4H PRN PRN Reason: sob Last Admin: 06/03/24 06:47 Dose: 2 puff Documented By: BALDEMAR Bisacodyl (Bisacodyl 10 Mg Supp.Rect) 10 mg [place] BEDTIME PRN PRN Reason: Constipation Docusate Sodium (Docusate Sodium 100 Mg Capsule) 100 mg PO BID [facility] Last Admin: 06/03/24 06:53 Dose: 100 mg Documented By: DARCI Fentanyl (Fentanyl 50 Mcg Patch.Td72) 50 mcg TRANSDERMA Q72H [facility] Last Admin: 06/01/24 14:04 Dose: 50 mcg Documented By: MICHAELA Haloperidol (Haloperidol 1 Mg Tablet) 1 mg PO Q4H PRN PRN Reason: anxiety/restlessness Haloperidol Lactate (Haloperidol Lactate 5 Mg/Ml Vial) 1 mg IVPUSH Q4H PRN PRN Reason: anxiety/restlessness Last Admin: 05/30/24 01:41 Dose: 1 mg Documented By: KETAN Lorazepam (Lorazepam 1 Mg Tablet) 1 mg PO BID PRN PRN Reason: anxiety/restlessness Last Admin: 06/03/24 06:53 Dose: 1 mg Documented By: DARCI Ondansetron HCl (Ondansetron Odt 4 Mg Tab.Rapdis) 4 mg TRANSLINGU Q6H PRN PRN Reason: Nausea and Vomiting Last Admin: 05/30/24 02:21 Dose: 4 mg Documented By: KETAN Oxycodone HCl (Oxycodone Hcl Immed Release 5 Mg Tablet) 10 mg PO Q4H PRN PRN Reason: Pain, Severe (Pain Scale 7-10) Last Admin: 06/03/24 06:53 Dose: 10 mg Documented By: DARCI Polyethylene Glycol (Polyethylene Glycol 3350 17 Gm Powd.Pack) 17 gm PO DAILY [facility] Last Admin: 06/03/24 09:36 Dose: Not Given Documented By: DARCI Non-Admin Reason: Previously Administered Senna (Sennosides 8.6 Mg Tablet) 17.2 mg PO BEDTIME PRN PRN Reason: Constipation Trazodone HCl (Trazodone Hcl 100 Mg Tablet) 100 mg PO BEDTIME PRN PRN Reason: sleep Last Admin: 06/02/24 20:48 Dose: 100 mg Documented By: NANETTEQC Labs 05/15/24 12:43 05/15/24 12:43 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 continue oral pain med and fentanyl Leakage around ostomy:Seen by wound care Coloplast barrier ring along with convex pouch and curved barrier strips applied without complications. Being followed by wound nurse due to recurrent leakage Unstageable pressure injury left heel, seen by wound nurse they recommend offload and dura fiber Ag for moisture management, follow recommendation Intermittent-- albuterol inhaler as per patient request, no acute exacerbation In regard to chronic medical issues including chronic kidney disease stage 3, hypertension, mood disorder, transitional cell carcinoma of left kidney, hold all home medications. DNR DNI/comfort measures only Quality Stroke Does the patient have a stroke diagnosis?: No VTE Prior VTE?: No VTE Risk Level:: Medical - moderate - high VTE Device Contraindication: Treatment Not Indicated VTE Drug Contraindication: Treatment Not Indicated
--- NOTE | 2024-06-03 13:17 | MHC.CM.PN ---
pt awaiting [facility] before pt can be dcd tp snf
[2024-06-03] MEDS: traZODone HCL 100 MG TABLET PO (19:23)
[2024-06-03] MEDS: HaloperidoL 1 MG TABLET PO (20:41)
[2024-06-03] MEDS: LORazepam 0.5 MG TABLET PO (23:49)
[2024-06-04] MEDS: Albuterol Sulfate 90 MCG 8 GM INHALER 2 PUFF INHALE ×2 (05:54→21:26)
--- NOTE | 2024-06-04 07:41 | HO.WOUND ---
Ostomy Consult: Follow up Update: New supplies arrived to unit - delivered to bedside. Will periodically check in with patient supplies while he remains inpatient. No new ostomy pouching recommendations needed at this time. Previous note details: 74yr old?[place] [facility] [place] - See progress notes and H&P for detailed history.?Ostomy consult followup for Urostomy with leaking and difficult to pouch stoma.? Patient agreeable to assessment and photo documentation.? Patient is alert and awake pleasant and making polite conversation at the time of my consult. Patient is known to this procedure writer from previous consultations. Patient is known to use a Convex pouch normally as pouch adherence difficult due to it being with in his crease of his abdomen. He is agreeable to a pouch change into Coloplast Convex pouch # [id number] (only available from inpt wound care nurse 1 left at bedside for future use). The creases on either side at 3 and 9 o'clock were filled with Brava Barrier Strip Paste (Storeroom#[id number]) including his umbilicus as this was a source of leaking when assessed. Pouch cut to 25MM oval. Pouch completed with Coloplast Elastic C strips to hold in place and a Brava Belt. (These are also only available from inpt wound care nurse). Please reuse belt this is not a onetime use item. Some pouch supplies remain at bedside - however pouch box ordered for patient supply - to arrive soon. Step by Step Instructions: Lay patient flat to apply pouch - he has to many creases to bit in another position and get a good seal. Remove pouch every 3 days. Change sooner if you notice any leaking. ?Do not reinforce with tape. Clean skin around stoma with warm water and soft cloth. ?Avoid using soaps or lotions. ?Do not use Adhesive remover. *Soaps can contain aloes/lanolins/extracts which leave film on skin that will interfere with pouch adherence Pat skin dry. Prepare products; Cut ostomy pouch approximately 25MM round - Use Templates left at bedside, Coloplast Convex pouch [id number] (Special order). Pat skin dry again the next part must be done fast. Fill the 3 and 9 o'clock creases with Brava Barrier Strip Paste and the umbilicus as well. Remove adhesive paper backing from back of pouch wafer apply Gentle Warm pressure to seal the wafer to his skin. ? Complete pouch change with application of [place] Elastic C strips to allow for added adherence. ?Complete with belt application - pt instructed to wear the belt to for added pressure to correct the way the stoma faces. ? Supplies needed 3 and 9 o'clock area filled with brave strip paste [place] Elastic C strips Pouch in place with belt Stoma - red moist round and above skin level but with in skin fold - needs convexity. Peristomal skin intact. Coloplast barrier ring used along with convex pouch [id number] and curved barrier strips to seal and belt. He was agreeable to these steps. Applied without complications.
[2024-06-04] MEDS: Docusate Sodium 100 MG CAPSULE PO ×2 (07:52→19:56)
[2024-06-04] MEDS: polyethylene glycoL 3350 17 GM POWD.PACK PO (07:52)
[2024-06-04] MEDS: oxyCODONE HCl Immed Release 5 MG TABLET 10 MG PO ×2 (07:52→21:21)
--- NOTE | 2024-06-04 09:48 | HO.PM.IMPN ---
Subjective Subjective Date of Service: 06/04/24 Interval History: hospice gip pt appear comfortable with no new issues Review of Systems r Physical Exam Vital Signs: Vital Signs: Last Vital Signs Temp 97.9 F 06/02/24 07:53 Pulse 69 06/02/24 07:53 Resp 16 06/02/24 07:53 BP 117/66 06/02/24 07:53 Pulse Ox 93 06/02/24 07:53 O2 Del Method Room Air 06/02/24 07:53 O2 Flow Rate 2 05/22/24 07:10 BMI result Body Mass Index 25.1 Const: Other: resting comfortable, without distress Objective Data Active Medications Acetaminophen (Acetaminophen 325 Mg Tablet) 650 mg PO Q6H PRN PRN Reason: fever Last Admin: 06/03/24 20:41 Dose: 650 mg Documented By: BALDEMAR Albuterol Sulfate (Albuterol Sulfate 90 Mcg 8 Gm Inhaler) 2 puff INHALE RQ4H PRN PRN Reason: sob Last Admin: 06/04/24 05:54 Dose: 2 puff Documented By: BALDEMAR Bisacodyl (Bisacodyl 10 Mg Supp.Rect) 10 mg RI BEDTIME PRN PRN Reason: Constipation Docusate Sodium (Docusate Sodium 100 Mg Capsule) 100 mg PO BID [facility] Last Admin: 06/04/24 07:52 Dose: 100 mg Documented By: ARTIE Fentanyl (Fentanyl 50 Mcg Patch.Td72) 50 mcg TRANSDERMA Q72H [facility] Last Admin: 06/01/24 14:04 Dose: 50 mcg Documented By: MICHAELA Haloperidol (Haloperidol 1 Mg Tablet) 1 mg PO Q4H PRN PRN Reason: anxiety/restlessness Last Admin: 06/03/24 20:41 Dose: 1 mg Documented By: BALDEMAR Haloperidol Lactate (Haloperidol Lactate 5 Mg/Ml Vial) 1 mg IVPUSH Q4H PRN PRN Reason: anxiety/restlessness Last Admin: 05/30/24 01:41 Dose: 1 mg Documented By: KETAN Ondansetron HCl (Ondansetron Odt 4 Mg Tab.Rapdis) 4 mg TRANSLINGU Q6H PRN PRN Reason: Nausea and Vomiting Last Admin: 05/30/24 02:21 Dose: 4 mg Documented By: HO.MENM Oxycodone HCl (Oxycodone Hcl Immed Release 5 Mg Tablet) 10 mg PO Q4H PRN PRN Reason: Pain, Severe (Pain Scale 7-10) Last Admin: 06/04/24 07:52 Dose: 10 mg Documented By: ARTIE Polyethylene Glycol (Polyethylene Glycol 3350 17 Gm Powd.Pack) 17 gm PO DAILY BALA Last Admin: 06/04/24 07:52 Dose: 17 gm Documented By: ARITE Senna (Sennosides 8.6 Mg Tablet) 17.2 mg PO BEDTIME PRN PRN Reason: Constipation Trazodone HCl (Trazodone Hcl 100 Mg Tablet) 100 mg PO BEDTIME PRN PRN Reason: sleep Last Admin: 06/03/24 19:23 Dose: 100 mg Documented By: NANETTEQC Labs 05/15/24 12:43 05/15/24 12:43 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 hospice for comfort care Metastatic bladder cancer with Mets and cancer pain syndrome under [facility] hospice for pain control and comfort care. continue oral pain med and fentanyl Leakage around ostomy:Seen by wound care Coloplast barrier ring along with convex pouch and curved barrier strips applied without complications. Being followed by wound nurse due to recurrent leakage Unstageable pressure injury left heel, seen by wound nurse they recommend offload and dura fiber Ag for moisture management, follow recommendation Intermittent-- albuterol inhaler as per patient request, no acute exacerbation In regard to chronic medical issues including chronic kidney disease stage 3, hypertension, mood disorder, transitional cell carcinoma of left kidney, hold all home medications. DNR DNI/comfort measures only Quality Stroke Does the patient have a stroke diagnosis?: No VTE Prior VTE?: No VTE Risk Level:: Medical - moderate - high VTE Device Contraindication: Treatment Not Indicated VTE Drug Contraindication: Treatment Not Indicated
--- NOTE | 2024-06-04 10:26 | MHC.CM.PN ---
Addendum entered by Fiorella Raza 06/04/24 13:13: MED NEC ON CHART Original Note: CM SPOKE TO [facility] SW WHO REPORTS SHE JUST MET WITH THE PT AND HIS SON AND SPOKE TO HER TEAM THE PLAN WILL BE FOR PT TO DC BACK HOME TOMORROW AT 1530 HOURS SON AND RHEUMATOLOGIST WILL MEET PT AT HOME BLS TRANSPORT BOOKED WITH [facility]
[2024-06-04] MEDS: fentaNYL 50 MCG PATCH.TD72 TRANSDERMA (14:58)
[2024-06-04] MEDS: traZODone HCL 100 MG TABLET PO (19:56)
[2024-06-04] MEDS: Sennosides 8.6 MG TABLET 17.2 MG PO (20:00)
[2024-06-04] MEDS: HaloperidoL 1 MG TABLET PO (21:21)
[2024-06-05] MEDS: Albuterol Sulfate 90 MCG 8 GM INHALER 2 PUFF INHALE (05:38)
[2024-06-05] MEDS: Acetaminophen 325 MG TABLET 650 MG PO ×2 (05:46→13:28)
[2024-06-05] MEDS: HaloperidoL 1 MG TABLET PO ×2 (05:46→13:28)
[2024-06-05] MEDS: oxyCODONE HCl Immed Release 5 MG TABLET 10 MG PO ×3 (05:47→13:28)
--- NOTE | 2024-06-05 07:47 | PM.DS ---
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, initially presented to [facility] emergency room on 05/15 for uncontrolled pain, workup in the emergency room showed no leukocytosis, had normocytic anemia and chronically stable thrombocytopenia , patient was treated with IV morphine, viral testing was negative, vitals were stable, patient was placed under physician observation in the emergency room, at that time he was awake alert tolerating diet, this morning patient complained of pain, was treated with IV Dilaudid accounts receivable assistant evaluated, MOLST form was filled out via telephone with son Cj Nation by ED provider, patient is DNR DNI and now being admitted under [facility] hospice for better pain control since requiring IV analgesics, at present time patient is unresponsive unable to provide any meaningful history as per nurse patient was unable to swallow pills this morning but was able to take thin liquids, speech therapy evaluated the patient and recommend pureed diet and thin liquids with spoon and no pills. hospital course: The patient has a history of metastatic bladder cancer with associated cancer pain syndrome and was receiving hospice care at home. Due to increasing pain that was not adequately controlled with oral pain medications, he was admitted to the hospital under hospice GIP for improved pain management. His treatment included IV Dilaudid and the initiation of a Fentanyl patch. Overall, his pain control has significantly improved, and he will be discharged back home to hospice care with a Fentanyl patch, oxycodone, Ativan, and Haldol for anxiety management. Time Attestation Discharge Coordination Time (in mins): 35 Quality: Safe Use of Opioids Does Pt have an Active Cancer Diagnosis on the Problem List?: Yes Opioid Measure Date for [facility] Report: 05/06/24 Opioid Measure Time for [facility] Report: 10:11 Quality: Stroke Does the patient have a stroke diagnosis?: No Physical Exam Vital Signs: Vital Signs: Last Vital Signs Temp 97.9 F 06/02/24 07:53 Pulse 69 06/02/24 07:53 Resp 16 06/02/24 07:53 BP 117/66 06/02/24 07:53 Pulse Ox 93 06/02/24 07:53 O2 Del Method Room Air 06/02/24 07:53 O2 Flow Rate 2 05/22/24 07:10 BMI result Body Mass Index 25.1 General: AO X 3, no acute distress Resp: CTA bilateral CVS: S1,S2,RRR GI: +BS, NT, no distention Skin: No rash Neuro: motor grossly intact Psych: appropriate affect DS: Data Data Completed and Pending Completed studies during hospitalization [Text1]: Procedures Dilation of Right Ureter with Intraluminal Device, Via Natural or Artificial Opening Endoscopic (05/19/21) Extirpation of Matter from Right Ureter, Via Natural or Artificial Opening Endoscopic (05/19/21) Discharge Plan Discharge Anticipated Discharge Date/Time: 06/05/24 07:38 Patient Disposition: Hospice - Home Discharge Diagnosis: Metastatic bladder cancer, uncontrolled pain Referrals: Nelson Pineda MD [Primary Care Provider] - 1 Week Discharge Medications: New fentanyl 50 mcg/hr Patch 72 Hour 50 mcg transdermal Q72H Qty: 5 0RF Rx Instructions: Partial Fill upon patient request. haloperidol 1 mg Tablet 1 mg PO Q4H PRN (Reason: Anxiety/Restlessness) Qty: 20 0RF acetaminophen 325 mg Tablet 650 mg PO Q6H PRN (Reason: fever) Qty: 30 0RF albuterol sulfate [Ventolin HFA] 90 mcg/actuation Hfa Aerosol Inhaler 2 puff inhalation RQ4H PRN (Reason: sob) Qty: 1 0RF bisacodyl [Gentle Laxative (bisacodyl)] 10 mg Suppository 10 mg LA BEDTIME PRN (Reason: Constipation) Qty: 30 0RF oxycodone 5 mg Tablet 10 mg PO Q4H PRN (Reason: Pain, Severe (Pain Scale 7-10)) Qty: 30 0RF Rx Instructions: Partial Fill upon patient request. docusate sodium 100 mg Capsule 100 mg PO BID Qty: 60 0RF polyethylene glycol 3350 17 gram Powder In Packet 17 g PO DAILY Qty: 30 0RF ondansetron 4 mg Tablet,Disintegrating 4 mg translingual Q6H PRN (Reason: Nausea And Vomiting) Qty: 30 0RF sennosides [Senna Lax] 8.6 mg Tablet 17.2 mg PO BEDTIME PRN (Reason: Constipation) Qty: 30 0RF lorazepam 0.5 mg tablet 0.5 mg PO Q6H PRN (Reason: anxiety/restlessness) 4 Days Qty: 16 0RF Continued (DME) Visi-Flow Fruit Cutter-Stoma Cone Misc See Rx Instructions .Route Qty: 1 5RF Rx Instructions: As directed trazodone 100 mg tablet 100 mg PO BEDTIME PRN (Reason: sleep) Qty: 30 2RF Discontinued amlodipine 5 mg tablet 10 mg PO DAILY Qty: 90 1RF oxycodone 20 mg tablet 20 mg PO Q4H PRN (Reason: SEVERE PAIN) Qty: 20 0RF morphine 30 mg tablet extended release 30 mg PO Q12H PRN (Reason: Pain) No Action (DME) SHOWER CHAIR See Rx Instructions .Route .MEDSUPPLY Qty: 1 0RF Rx Instructions: As directed Discharge Orders: Discharge Order (Routine); Ordered 06/05/24 Ordered By: Abhishek Street Diet: Advance to usual diet Activity on Discharge: As tolerated Stand Alone Forms: Patient Portal Discharge page Print Language: Nicaraguan Care Plan Goals: to go home with hospice with ultimate goal of comfort Health Concerns: Cancer pain syndrome due to metastatic bladder cancer Plan of Treatment: hospice at home pain medicatin as prescribed Assessment: see above
--- NOTE | 2024-06-05 10:37 | MHC.CM.PN ---
PT WILL DC HOME TODAY AT 1530 HOURS [facility]IA [facility] SON WILL MEET HIM AT HIS HOME [facility] WILL RESUME SERVICES
== END 2024-06-05 15:41 | disposition hospice, home (50) | DRG 951 ==
LOC: HO.ED 05-18 16:03 → HO.EDOVER 05-18 17:20 → HO.S3 05-19 16:09
PROVIDERS: Admitting Provider Hospitalist; Emergency Provider Student in an Organized Health Care Education/Training Program; PCP Internal Medicine; Visit Provider Internal Medicine
DX: Z51.5 Encounter for palliative care (principal); C64.2 Malignant neoplasm of left kidney, except renal pelvis; C79.11 Secondary malignant neoplasm of bladder; G89.3 Neoplasm related pain (acute) (chronic); T83.032A Leakage of nephrostomy catheter, initial encounter; Y73.8 Miscellaneous gastroenterology and urology devices associated with adverse incidents, not elsewhere classified; I12.9 Hypertensive chronic kidney disease with stage 1 through stage 4 chronic kidney disease, or unspecified chronic kidney disease; N18.30 Chronic kidney disease, stage 3 unspecified; J45.20 Mild intermittent asthma, uncomplicated; L89.620 Pressure ulcer of left heel, unstageable; Z20.822 Contact with and (suspected) exposure to COVID-19; Z93.6 Other artificial openings of urinary tract status; Z79.899 Other long term (current) drug therapy
CPT/HCPCS: 0241U; 36415; 80053; 81001; 83605; 84484; 85025; 87040; 87086; 87088; 87186; 92526; 99285; J1171; J1630; J2060

== ENCOUNTER → 2024-05-18 17:04 | Outpatient (BNV) | payer MEDICARE, MEDICAID, SELFPAY | PROVIDERS: Admitting Provider Hospitalist; Emergency Provider Student in an Organized Health Care Education/Training Program; PCP Internal Medicine; Visit Provider Hospitalist | DX: C79.9 Secondary malignant neoplasm of unspecified site (principal); R52 Pain, unspecified | CPT/HCPCS: 99223; 99231; 99232; 99239 ==

== ENCOUNTER 2024-07-03 11:33 | Inpatient (IN) | payer OTHER, SELFPAY ==
--- NOTE | 2024-07-03 11:49 | MHC.CM.ED ---
Received notification from [facility] that patient is active with their agency and will need GIP admission due to pain management issues. Olivia, industrial design engineer aware. Return referral made in [facility] so agency can follow.
[2024-07-03 12:05] VITALS: BP 180/90; BP 197/95; PULSE 100; PULSE 101; RESP 18; TEMP 36.7; O2SAT 97; O2SAT 99; BMI 26.6
--- NOTE | 2024-07-03 12:28 | ED.GENADULT ---
HPI - General Adult General Chief complaint: General Medical Stated complaint: Lower extremity pain/swelling Time Seen by Provider: 07/03/24 11:58 Source: patient, EMS and old records reviewed Mode of arrival: EMS Limitations: no limitations History of Present Illness ED Provider: CHRISTINE CERON narrative: 74 yo male with PMH of metastatic bladder cancer on home hospice, CKD, HTN, mood disorder, asthma, transitional cell carcinoma of left kidney here from home with sig pain in legs and hip - he states his pain medications at home will not help. His R leg is swollen he does not want any labs or imaging he just wants pain control. Case management states he is to get admitted as GIP for IV pain control - patient aware and agrees MD complaint: intractable pain Onset (ago): week(s) Location: pelvis and lower extremity Radiation: other (everywhere) Severity: moderate Quality: crushing Pain Consistency: constant Relieving factors: none Exacerbating factors: movement Associated symptoms: denies other symptoms Treatments prior to arrival: none Related Data Previous Rx's ?Medication ?Instructions ?Recorded ostomy supplies (Visi-Flow #1 ea 03/28/23 Presentation Team Member-Stoma Cone misc) SHOWER CHAIR #1 ea 02/26/24 trazodone 100 mg tablet 100 mg PO BEDTIME PRN sleep #30 03/03/24 tabs acetaminophen 325 mg tablet 650 mg (2 x 325 mg) PO Q6H PRN 06/04/24 fever #30 tabs albuterol sulfate 90 mcg/actuation 2 puff inhalation RQ4H PRN sob #1 g 06/04/24 aerosol inhaler (Ventolin HFA) bisacodyl 10 mg rectal suppository 10 mg PA BEDTIME PRN Constipation 06/04/24 (Gentle Laxative (bisacodyl)) #30 ea docusate sodium 100 mg capsule 100 mg PO BID #60 caps 06/04/24 haloperidol 1 mg tablet 1 mg PO Q4H PRN 06/04/24 Anxiety/Restlessness #20 tabs ondansetron 4 mg disintegrating 4 mg translingual Q6H PRN Nausea 06/04/24 tablet And Vomiting #30 tabs oxycodone 5 mg tablet 10 mg (2 x 5 mg) PO Q4H PRN Pain, 06/04/24 Severe (Pain Scale 7-10) #30 tabs polyethylene glycol 3350 17 gram 17 g PO DAILY #30 ea 06/04/24 oral powder packet sennosides 8.6 mg tablet (Senna 17.2 mg (2 x 8.6 mg) PO BEDTIME 06/04/24 Lax) PRN Constipation #30 tabs fentanyl 50 mcg/hr transdermal 50 mcg transdermal Q72H #10 ea 06/05/24 patch lorazepam 0.5 mg tablet 0.5 mg PO Q6H PRN 06/05/24 anxiety/restlessness 4 days #16 tabs Allergies Allergy/AdvReac Type Severity Reaction Status Date / Time piperacillin [From ZOSYN] Allergy Intermediate REDNESS/WARMTH Verified 07/03/24 12:05 TO IV SITE. tazobactam [From ZOSYN] Allergy Intermediate REDNESS/WARMTH Verified 07/03/24 12:05 TO IV SITE. ibuprofen Allergy Unknown Unknown Verified 07/03/24 12:05 lamotrigine [Lamictal] Allergy Unknown Unknown Verified 07/03/24 12:05 Anti-Inflammatory Enzyme Allergy Unknown rash on Uncoded 07/03/24 12:05 both legs Review of Systems Review of Systems: Constitutional : No Fever, No Chills, pos Fatigue ENT/Mouth : No sore throat, No Rhinorrhea Eyes: No Eye Pain, No Swelling, No Redness Cardiovascular : No Chest Pain, No SOB, No Dyspnea on Exertion Respiratory : No Cough, No Sputum Gastrointestinal : No Nausea, No Vomiting, No Diarrhea, No abdominal Pain Genitourinary : No Dysuria, No Urinary Frequency, No Hematuria, Musculoskeletal : pos joint pain, pos Myalgias, No Joint Swelling Skin : No Skin Lesions, No rash Neuro : pos Weakness, No Numbness, No Dizziness, no Headache All other systems reviewed and are negative [facility] Past Medical History Attestation statement: The following information was validated with the patient. Source: old records reviewed Medical History DVT (deep venous thrombosis) Overweight (BMI 25.0-29.9) Presence of urostomy CKD (chronic kidney disease), stage III Hematuria Hyperkalemia Hypertension, uncontrolled Hydronephrosis Urinary tract infection Acute renal failure Hypertension Bipolar disorder Acute kidney injury Dermatitis 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 Pruritic erythematous rash Anemia Obesity (BMI 30-39.9) Insomnia Lumbar degenerative disc disease Type 2 diabetes mellitus with diabetic chronic kidney disease Benign essential hypertension Chronic kidney disease (CKD), stage III (moderate) Hematuria Metabolic encephalopathy HLD (hyperlipidemia) Bladder cancer Asthma HTN (hypertension) Surgical History History of urinary diversion procedure Hx of total cystectomy (~08/03/21) History of left nephrectomy (~11/29/20) History of cystoscopy History of bladder surgery Family History Family History Father Hypertension CVD (cardiovascular disease) Mother No problems noted. Social History Social History Household Members: Unknown / Unable to assess Household Members Other:: pt. silvinole to speak Housing: Unknown / Unable to assess Unable to assess alcohol history related to: Refusing to respond Alcohol intake: former Comment: 1:1 sitter Patient Tobacco Use Status: Never used Tobacco e-Cigarette/Vaping Use: Never Used Second Hand Smoke Exposure: No Advance Directives: Yes Advance Directives on File: Yes Advance Directives Date on File: 11/17/21 Do you have a plan to hurt others: No Plan service: No Current occupational status: retired and disabled Cognitive needs: No Hearing needs: No Vision needs: No Physical Exam ED Vital Signs: Vital Signs - 24 hr 07/03/24 12:05 Temperature 98.1 F Pulse Rate 101 H Respiratory Rate 18 Blood Pressure 197/95 H Pulse Oximetry 97 Oxygen Delivery Method Room Air BMI result Body Mass Index 26.6 Appearance: Alert. Oriented X3. in pain weak and frail mild acute distress. Eyes: no signs of periorbital infeciton ENT: Pharynx normal. Neck: Normal inspection. Neck supple. CVS: Normal heart rate and rhythm. Pulses normal. Respiratory: No respiratory distress. Breath sounds normal. Abdomen: Soft and non-tender. Skin: Skin warm and dry. pale skin color. Normal skin turgor. Extremities: R leg edema Neuro: Oriented X 3. No motor deficit. No sensory deficit. CN2-12 intact Medical Decision Making Medical Decision Making MDM Narrative: 74 yo male with PMH of metastatic lung caner on hospice here for intractable pain. He agrees to IV pain medications and plan is to admit for pain control per hospice and CM. He is agreeable with the plan Differential Diagnosis Differential Diagnoses: The differential diagnosis associated with the presentation includes intractable pain Admission/Observation Consideration of admission/observation: Escalation of care including admission/observation considered admit to [facility] per case management Consult Healthcare Provider Management of the patient was discussed with: Hospitalist (will admit) Independent Historian Clinical information obtained from an independent historian. History obtained from or confirmed by: EMS External Record Review External record reviewed: Inpatient record and Outpatient record Discharge Plan Discharge Clinical Impression: Intractable pain Patient Disposition: Admitted As Inpatient Prescriptions: No Action (DME) Visi-Flow Presentation Team Member-Stoma Cone Misc See Rx Instructions .Route Qty: 1 5RF Rx Instructions: As directed (DME) SHOWER CHAIR See Rx Instructions .Route .MEDSUPPLY Qty: 1 0RF Rx Instructions: As directed trazodone 100 mg tablet 100 mg PO BEDTIME PRN (Reason: sleep) Qty: 30 2RF haloperidol 1 mg Tablet 1 mg PO Q4H PRN (Reason: Anxiety/Restlessness) Qty: 20 0RF acetaminophen 325 mg Tablet 650 mg PO Q6H PRN (Reason: fever) Qty: 30 0RF albuterol sulfate [Ventolin HFA] 90 mcg/actuation Hfa Aerosol Inhaler 2 puff inhalation RQ4H PRN (Reason: sob) Qty: 1 0RF bisacodyl [Gentle Laxative (bisacodyl)] 10 mg Suppository 10 mg PA BEDTIME PRN (Reason: Constipation) Qty: 30 0RF oxycodone 5 mg Tablet 10 mg PO Q4H PRN (Reason: Pain, Severe (Pain Scale 7-10)) Qty: 30 0RF Rx Instructions: Partial Fill upon patient request. docusate sodium 100 mg Capsule 100 mg PO BID Qty: 60 0RF polyethylene glycol 3350 17 gram Powder In Packet 17 g PO DAILY Qty: 30 0RF ondansetron 4 mg Tablet,Disintegrating 4 mg translingual Q6H PRN (Reason: Nausea And Vomiting) Qty: 30 0RF sennosides [Senna Lax] 8.6 mg Tablet 17.2 mg PO BEDTIME PRN (Reason: Constipation) Qty: 30 0RF lorazepam 0.5 mg tablet 0.5 mg PO Q6H PRN (Reason: anxiety/restlessness) 4 Days Qty: 16 0RF fentanyl 50 mcg/hr Patch 72 Hour 50 mcg transdermal Q72H Qty: 10 0RF Rx Instructions: Partial Fill upon patient request. Print Language: Kazakh
[2024-07-03 12:38] VITALS: RESP 18
[2024-07-03] MEDS: HYDROmorphone HCl 1 MG/ML SYRINGE IVPUSH ×2 (12:38→15:30)
[2024-07-03] MEDS: HYDROmorphone HCl 2 MG TABLET PO (12:39)
--- NOTE | 2024-07-03 15:14 | PM.IMHP ---
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 Patient denies recent sedated fever chills, no lightheadedness, no dizziness, no nausea, no vomiting, no abdominal pain or diarrhea. Review of Systems Review of Systems: General no headache no dizziness no fever chills. CVS no chest pain, no palpitation. Respiratory no cough ,no sob Gastrointestinal no nausea no vomiting, no abdominal pain no symptoms All other system reviewed and are negative [facility] Medical History DVT (deep venous thrombosis) Overweight (BMI 25.0-29.9) Presence of urostomy CKD (chronic kidney disease), stage III Hematuria Hyperkalemia Hypertension, uncontrolled Hydronephrosis Urinary tract infection Acute renal failure Hypertension Bipolar disorder Acute kidney injury Dermatitis 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 Pruritic erythematous rash Anemia Obesity (BMI 30-39.9) Insomnia Lumbar degenerative disc disease Type 2 diabetes mellitus with diabetic chronic kidney disease Benign essential hypertension Chronic kidney disease (CKD), stage III (moderate) Hematuria Metabolic encephalopathy HLD (hyperlipidemia) Bladder cancer Asthma HTN (hypertension) Family History Father Hypertension CVD (cardiovascular disease) Mother No problems noted. 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 If so, by whom?: No Do you feel safe in your current relationship?: No Current Relationship Is there a partner from a previous relationship who is making you feel unsafe now?: No Are you made to feel afraid or neglected: No Advance Directives: Yes Advance Directives on File: Yes Advance Directives Date on File: 11/17/21 Do you have a plan to hurt others: No Plan Recently lost weight without trying: No Eating poorly because of decreased appetite: No Nutrition Risks: No Nutritional Risk Poor oral hygiene: No service: No Current occupational status: retired and disabled Cognitive needs: No Hearing needs: No Vision needs: No Meds Allergies Allergy/AdvReac Type Severity Reaction Status Date / Time piperacillin [From ZOSYN] Allergy Intermediate REDNESS/WARMTH Verified 07/03/24 12:05 TO IV SITE. tazobactam [From ZOSYN] Allergy Intermediate REDNESS/WARMTH Verified 07/03/24 12:05 TO IV SITE. ibuprofen Allergy Unknown Unknown Verified 07/03/24 12:05 lamotrigine [Lamictal] Allergy Unknown Unknown Verified 07/03/24 12:05 Anti-Inflammatory Enzyme Allergy Unknown rash on Uncoded 07/03/24 12:05 both legs Active Medications: Current Medications Acetaminophen (Acetaminophen 325 Mg Tablet) 650 mg PO Q6H PRN PRN Reason: Fever Docusate Sodium (Docusate Sodium 100 Mg Capsule) 100 mg PO BID BALA Hydromorphone HCl (Hydromorphone Hcl 0.5 Mg/0.5 Ml Syringe) 0.5 mg IVPUSH Q4H PRN; Protocol PRN Reason: Pain, Severe (Pain Scale 7-10) Ondansetron HCl (Ondansetron Hcl 4 Mg/2 Ml Vial) 4 mg IVPUSH Q8H PRN PRN Reason: Nausea Home Medications ?Medication ?Instructions ?Recorded ?Confirmed ?Last Taken ?Type dexamethasone 4 mg tablet 8 mg PO DAILY 07/03/24 07/03/24 Unknown History haloperidol 1 mg tablet 1 mg PO BID PRN 07/03/24 07/03/24 Unknown History Anxiety/Restlessness lactulose 20 gram/30 mL oral 30 ml PO DAILY PRN Constipation 07/03/24 07/03/24 Unknown History solution morphine 60 mg tablet,extended 120 mg PO BID pain 07/03/24 07/03/24 Unknown History release (MS Contin) morphine concentrate 100 mg/5 mL 30 mg PO Q1H PRN pain or dyspnea 07/03/24 07/03/24 Unknown History (20 mg/mL) oral solution ondansetron 4 mg disintegrating 4 mg translingual Q8H PRN Nausea 07/03/24 07/03/24 Unknown History tablet And Vomiting Physical Exam Vital Signs and Narrative: Vital Signs: Last Vital Signs Temp 98.1 F 07/03/24 12:05 Pulse 101 H 07/03/24 12:05 Resp 18 07/03/24 12:38 BP 197/95 H 07/03/24 12:05 Pulse Ox 97 07/03/24 12:05 O2 Del Method Room Air 07/03/24 12:05 BMI result Body Mass Index 26.6 Const: Other: General awake alert, in mild distress due to pain Anicteric sclera Neck no JVD. CVS regular rate rhythm, Respiratory lungs clear to auscultation, no respiratory distress Gastrointestinal abdomen soft, non tender, urostomy in place right lower quadrant, clear urine with no drainage Extremities right lower extremity edema Neuro moving all 4 extremity speech clear. 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 Metastatic bladder cancer with Mets admitted due to worsening pain not responding to oral analgesics Admit under [facility] hospice Continue MS Contin 120 b.i.d., dexamethasone 8 mg daily,(discussed with Dr. Amador dexamethasone is being use for pain control) IV Dilaudid scheduled and as needed Ativan /Haldol/trazodone as needed for anxiety (continued from baseline medications) Oxygen for comfort/stool softeners Continue regular diet with thin liquids as tolerated chronic kidney disease stage 3, patient declined further imaging studies and lab hypertension, elevated blood pressures not on antihypertensives. mood disorder, continue Ativan for anxiety Intermittent asthma, no acute exacerbation continue home inhalers DNR DNI Quality Stroke Does the patient have a stroke diagnosis?: No VTE Prior VTE?: No VTE Risk Level:: Medical - moderate - high VTE Device Contraindication: Treatment Not Indicated VTE Drug Contraindication: Treatment Not Indicated
--- NOTE | 2024-07-03 16:12 | PHA.MEDREC ---
Pharmacy Consult ? Medication Reconciliation Pharmacy has completed the medication reconciliation. Utilized list from Hospice to confirm medications.
[2024-07-03] MEDS: Albuterol Sulfate 90 MCG 8 GM INHALER 2 PUFF INHALE (18:18)
[2024-07-03 18:51] VITALS: BP 229/113; PULSE 95; RESP 18; TEMP 37.3; O2SAT 97
[2024-07-03 20:00] VITALS: BP 164/83; PULSE 91
[2024-07-03] MEDS: LORazepam 0.5 MG TABLET PO (20:51)
[2024-07-03] MEDS: traZODone HCL 100 MG TABLET PO (20:51)
[2024-07-03] MEDS: HYDROmorphone HCl 0.5 MG/0.5 ML SYRINGE 1 MG IVPUSH (20:51)
[2024-07-03] MEDS: Morphine Sulfate ER 30 MG TABLET.ER 120 MG PO (20:52)
[2024-07-03] MEDS: Docusate Sodium 100 MG CAPSULE PO (20:55)
[2024-07-04] MEDS: HYDROmorphone HCl 0.5 MG/0.5 ML SYRINGE 1 MG IVPUSH ×2 (01:02→07:25)
[2024-07-04 03:32] VITALS: BP 168/94; PULSE 82; RESP 18; TEMP 36.6; O2SAT 95
[2024-07-04 07:48] VITALS: BP 202/95; PULSE 120; RESP 22; TEMP 37.6; O2SAT 91
[2024-07-04] MEDS: LORazepam 0.5 MG TABLET PO (08:00)
[2024-07-04] MEDS: Morphine Sulfate ER 30 MG TABLET.ER 120 MG PO (08:00)
[2024-07-04] MEDS: amLODIPine Besylate 5 MG TABLET PO (08:30)
--- NOTE | 2024-07-04 08:48 | MHC.CM.PN ---
Addendum entered by Roopa Thomas RN 07/04/24 12:57: CM spoke with son Cj. Patient lives alone. Cj lives less than 10 min away and visits patient several times a week. Cj reports patient has [employer] services through [facility], but isn't sure how many hours. Discussed plan for return home when pain is controlled and pump is obtained. Cj is agreeable, but has concerns re: patient's ability to care for himself. He is currently working w/ EC to increase [employer] hours. Son also reports patient does not have [employer]. 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 He plans to connect w/ hospice SW on Saturday to further discuss. CM will continue to follow. Original Note: CM LM for tiki Corona to complete CM assessment. Per chart review and conversation w/ [facility]: Patient lives at home w/ son/HCP Cj. [facility] w/ [facility]. Admitted [facility] for pain control. PCP Nelson Pineda MD HCP and STEVEN on file. DP: Per [facility], plan is return home w/ son via BLS once they are able to obtain a pump for home use, Saturday @ earliest. CM will continue to follow.
[2024-07-04 09:49] VITALS: BP 155/85; PULSE 124; RESP 22; O2SAT 90
[2024-07-04] MEDS: polyethylene glycoL 3350 17 GM POWD.PACK PO (10:24)
[2024-07-04] MEDS: dexAMETHasone 4 MG TABLET 8 MG PO (10:24)
--- NOTE | 2024-07-04 11:19 | P.PNIM_ITS ---
Subjective Subjective Date of Service: 07/05/24 Interval History: Patient noted to have episodes of apnea with blank stare, received MS Contin 120 b.i.d. (home dose) and as needed Dilaudid 1 mg q.4 hours since was complaining of pain at admission. Review of Systems Unable to obtain due to mental status Physical Exam Vital Signs: Vital Signs: Last Vital Signs Temp 99.6 F 07/04/24 07:48 Pulse 124 H 07/04/24 09:49 Resp 22 H 07/04/24 09:49 BP 155/85 H 07/04/24 09:49 Pulse Ox 90 L 07/04/24 09:49 O2 Del Method Room Air 07/04/24 09:49 BMI result Body Mass Index 26.6 Const: Other: General no distress, resting comfortably blank stare with periods of apnea Anicteric sclera Neck no JVD. CVS regular rate rhythm, Respiratory lungs no respiratory distress Gastrointestinal abdomen soft, non tender, urostomy in place right lower quadrant, clear urine with no drainage Extremities right lower extremity edema Neuro moving all 4 , periods of unresponsiveness. Skin no rash Objective Data Active Medications Acetaminophen (Acetaminophen 325 Mg Tablet) 650 mg PO Q6H PRN PRN Reason: Fever Albuterol Sulfate (Albuterol Sulfate 90 Mcg 8 Gm Inhaler) 2 puff INHALE RQ4H PRN PRN Reason: sob Last Admin: 07/03/24 18:18 Dose: 2 puff Documented By: MICHAELA Amlodipine Besylate (Amlodipine Besylate 5 Mg Tablet) 5 mg PO DAILY [facility]; Protocol Last Admin: 07/04/24 08:30 Dose: 5 mg Documented By: JAMAICA Bisacodyl (Bisacodyl 10 Mg Supp.Rect) 10 mg IN BEDTIME PRN PRN Reason: Constipation Dexamethasone (Dexamethasone 4 Mg Tablet) 4 mg PO BIDWM [facility] Docusate Sodium (Docusate Sodium 100 Mg Capsule) 100 mg PO BID [facility] Last Admin: 07/04/24 08:27 Dose: Not Given Documented By: JAMAICA Non-Admin Reason: Patient Refused Haloperidol (Haloperidol 1 Mg Tablet) 1 mg PO BID PRN PRN Reason: Anxiety/Restlessness Hydromorphone HCl (Hydromorphone Hcl 2 Mg/Ml Vial) 1 mg IVPUSH Q3H PRN; Protocol PRN Reason: Pain, Severe (Pain Scale 7-10) Lactulose (Lactulose 20 Gm/30 Ml Solution) 20 gm PO DAILY PRN PRN Reason: Constipation Lorazepam (Lorazepam 0.5 Mg Tablet) 0.5 mg PO Q6H PRN PRN Reason: anxiety/restlessness Last Admin: 07/04/24 08:00 Dose: 0.5 mg Documented By: JAMAICA Morphine Sulfate (Morphine Sulfate Er 30 Mg Tablet.Er) 120 mg PO BID [facility] Last Admin: 07/04/24 08:00 Dose: 120 mg Documented By: JAMAICA Ondansetron HCl (Ondansetron Hcl 4 Mg/2 Ml Vial) 4 mg IVPUSH Q8H PRN PRN Reason: Nausea Polyethylene Glycol (Polyethylene Glycol 3350 17 Gm Powd.Pack) 17 gm PO DAILY [facility] Last Admin: 07/04/24 10:24 Dose: 17 gm Documented By: JAMAICA Senna (Sennosides 8.6 Mg Tablet) 17.2 mg PO BEDTIME PRN PRN Reason: Constipation Trazodone HCl (Trazodone Hcl 100 Mg Tablet) 100 mg PO BEDTIME PRN PRN Reason: sleep Last Admin: 07/03/24 20:51 Dose: 100 mg Documented By: SANDRA Assessment and Plan (1) Intractable pain: Status: Acute (2) Metastatic cancer: Status: Acute (3) Hypertension: Status: Acute Plan 74-year-old gentleman with past medical history significant for metastatic bladder cancer, chronic kidney disease stage 3, hypertension, mood disorder, history of asthma, 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 Metastatic bladder cancer with Mets admitted due to worsening pain not responding to oral analgesics under [facility] hospice Will decrease dose of MS Contin to 90 b.i.d. from home dose of 120 b.i.d., dexamethasone 8 mg daily, (discussed with Dr. Amador dexamethasone is being use for pain control) minimize IV Dilaudid as needed Ativan /Haldol/trazodone as needed for anxiety (continued from home medications) Oxygen for comfort/stool softeners Continue regular diet with thin liquids as tolerated chronic kidney disease stage 3, patient declined further imaging studies and lab hypertension, elevated blood pressures not on antihypertensives. Due to significant hypertension added Norvasc 5 mg daily mood disorder, continue Ativan for anxiety Intermittent asthma, no acute exacerbation continue home inhalers DNR DNI/[facility] hospice Will discuss with [facility] nurse regarding further medication adjustment. Quality Stroke Does the patient have a stroke diagnosis?: No VTE Prior VTE?: No VTE Risk Level:: Medical - moderate - high VTE Device Contraindication: Treatment Not Indicated VTE Drug Contraindication: Treatment Not Indicated
[2024-07-04] MEDS: HYDROmorphone HCl 1 MG/ML SYRINGE IVPUSH (14:43)
[2024-07-04 15:09] VITALS: BP 114/65; PULSE 100; RESP 16; TEMP 36.6; O2SAT 94
[2024-07-04] MEDS: dexAMETHasone 4 MG TABLET PO (17:09)
[2024-07-04] MEDS: Docusate Sodium 100 MG CAPSULE PO (21:11)
[2024-07-04] MEDS: Morphine Sulfate ER 30 MG TABLET.ER 90 MG PO (21:11)
[2024-07-05] MEDS: HYDROmorphone HCl 1 MG/ML SYRINGE IVPUSH ×2 (02:20→05:38)
[2024-07-05 04:00] VITALS: RESP 16
[2024-07-05 08:00] VITALS: BP 132/67; PULSE 78; RESP 16; TEMP 36.1; O2SAT 93
[2024-07-05] MEDS: Docusate Sodium 100 MG CAPSULE PO ×2 (09:35→20:21)
[2024-07-05] MEDS: polyethylene glycoL 3350 17 GM POWD.PACK PO (09:35)
[2024-07-05] MEDS: dexAMETHasone 4 MG TABLET PO ×2 (09:36→16:52)
[2024-07-05] MEDS: amLODIPine Besylate 5 MG TABLET PO (09:36)
[2024-07-05] MEDS: Morphine Sulfate ER 30 MG TABLET.ER 60 MG PO ×3 (09:36→20:21)
[2024-07-05] MEDS: Morphine Sulfate ER 15 MG TABLET.ER PO ×3 (10:00→20:20)
[2024-07-05] MEDS: Albuterol Sulfate 90 MCG 8 GM INHALER 2 PUFF INHALE ×3 (10:03→20:23)
--- NOTE | 2024-07-05 15:05 | HO.PM.IMPN ---
Subjective Subjective Date of Service: 07/05/24 Interval History: Patient awake alert this morning complaining of left lower abdominal/hip pain with radiation down left leg, was unable to ambulate at home. Complaining of mild shortness of breath Tolerating diet no nausea, no vomiting, no bowel movement Review of Systems All other system reviewed and are negative Physical Exam Vital Signs: Vital Signs: Last Vital Signs Temp 97.0 F 07/05/24 08:00 Pulse 78 07/05/24 08:00 Resp 16 07/05/24 08:00 BP 132/67 07/05/24 08:00 Pulse Ox 93 07/05/24 08:00 O2 Del Method Room Air 07/05/24 08:00 O2 Flow Rate 2 07/04/24 15:09 BMI result Body Mass Index 26.6 Const: Other: General no distress, resting comfortably Anicteric sclera Neck no JVD. CVS regular rate rhythm, Respiratory lungs no respiratory distress Gastrointestinal abdomen soft, non tender, urostomy in place right lower quadrant, clear urine with no drainage, left hip limited range of motion due to pain no swelling/no bruising. Extremities right lower extremity edema, no left lower extremity edema Neuro moving all 4 Skin no rash Objective Data Active Medications Acetaminophen (Acetaminophen 325 Mg Tablet) 650 mg PO Q6H PRN PRN Reason: Fever Albuterol Sulfate (Albuterol Sulfate 90 Mcg 8 Gm Inhaler) 2 puff INHALE RQ4H PRN PRN Reason: sob Last Admin: 07/05/24 14:10 Dose: 2 puff Documented By: JAMAICA Amlodipine Besylate (Amlodipine Besylate 5 Mg Tablet) 5 mg PO DAILY [facility]; Protocol Last Admin: 07/05/24 09:36 Dose: 5 mg Documented By: JAMAICA Bisacodyl (Bisacodyl 10 Mg Supp.Rect) 10 mg [place] BEDTIME PRN PRN Reason: Constipation Dexamethasone (Dexamethasone 4 Mg Tablet) 4 mg PO BIDWM [facility] Last Admin: 07/05/24 09:36 Dose: 4 mg Documented By: JAMAICA Docusate Sodium (Docusate Sodium 100 Mg Capsule) 100 mg PO BID [facility] Last Admin: 07/05/24 09:35 Dose: 100 mg Documented By: JAMAICA Haloperidol (Haloperidol 1 Mg Tablet) 1 mg PO BID PRN PRN Reason: Anxiety/Restlessness Lactulose (Lactulose 20 Gm/30 Ml Solution) 20 gm PO DAILY PRN PRN Reason: Constipation Lorazepam (Lorazepam 0.5 Mg Tablet) 0.5 mg PO Q6H PRN PRN Reason: anxiety/restlessness Last Admin: 07/04/24 08:00 Dose: 0.5 mg Documented By: JAMAICA Morphine Sulfate (Morphine Sulfate Er 15 Mg Tablet.Er) 15 mg PO TID [facility] Last Admin: 07/05/24 14:10 Dose: 15 mg Documented By: JAMAICA Morphine Sulfate (Morphine Sulfate Er 30 Mg Tablet.Er) 60 mg PO TID [facility] Last Admin: 07/05/24 14:11 Dose: 60 mg Documented By: JAMAICA Ondansetron HCl (Ondansetron Hcl 4 Mg/2 Ml Vial) 4 mg IVPUSH Q8H PRN PRN Reason: Nausea Polyethylene Glycol (Polyethylene Glycol 3350 17 Gm Powd.Pack) 17 gm PO DAILY [facility] Last Admin: 07/05/24 09:35 Dose: 17 gm Documented By: JAMAICA Senna (Sennosides 8.6 Mg Tablet) 17.2 mg PO BEDTIME PRN PRN Reason: Constipation Trazodone HCl (Trazodone Hcl 100 Mg Tablet) 100 mg PO BEDTIME PRN PRN Reason: sleep Last Admin: 07/03/24 20:51 Dose: 100 mg Documented By: SANDRA Assessment and Plan (1) Intractable pain: Status: Acute (2) Metastatic cancer: Status: Acute (3) Hypertension: Status: Acute Plan 74-year-old gentleman with past medical history significant for metastatic bladder cancer, chronic kidney disease stage 3, hypertension, mood disorder, history of asthma, 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 Metastatic bladder cancer with Mets admitted due to worsening pain not responding to oral analgesics. under [facility] hospice Last CT abdomen and pelvis January 21 showed no osseous abnormalities. Spoke with hospice nurse there was a question patient was noncompliant with his home medications and unable to manage his care at home with poor pain control therefore was referred to hospital. on home dose of MS Contin 120 mg b.i.d.,prn Ativan and trazodone patient noted to to be unresponsive with periods of apnea since likely was not taking home medications as home Adjusted MS Contin dosage to 75 mg t.i.d., will DC IV Dilaudid, continue dexamethasone dose adjusted to 4 mg b.i.d. Continue Ativan /Haldol/trazodone as needed for anxiety (continued from home medications) Oxygen for comfort/stool softeners Continue regular diet with thin liquids as tolerated Patient will likely need placement chronic kidney disease stage 3, patient declined further imaging studies and lab hypertension, elevated blood pressures not on antihypertensives. Due to significant hypertension added Norvasc 5 mg daily mood disorder, continue Ativan for anxiety Intermittent asthma, no acute exacerbation continue home inhalers DNR DNI/[facility] hospice Spoke with [facility] nurse she agreed with above medication adjustment, hospice has no plan for arranging intravenous medication at home via [employer] patient was sent due to noncompliance with medications and uncontrolled pain Unable to take care of himself and possible placement. Quality Stroke Does the patient have a stroke diagnosis?: No VTE Prior VTE?: No VTE Risk Level:: Medical - moderate - high VTE Device Contraindication: Treatment Not Indicated VTE Drug Contraindication: Treatment Not Indicated
[2024-07-05] MEDS: oxyCODONE HCl Immed Release 5 MG TABLET 10 MG PO (17:59)
[2024-07-05 19:24] VITALS: BP 140/74; PULSE 88; RESP 20; TEMP 36.3; O2SAT 93
[2024-07-06] MEDS: oxyCODONE HCl Immed Release 5 MG TABLET 10 MG PO ×3 (04:26→20:06)
[2024-07-06 07:34] VITALS: BP 168/79; PULSE 60; RESP 14; TEMP 36.3; O2SAT 95
[2024-07-06] MEDS: Morphine Sulfate ER 30 MG TABLET.ER 60 MG PO ×3 (09:01→20:10)
[2024-07-06] MEDS: amLODIPine Besylate 5 MG TABLET PO (09:01)
[2024-07-06] MEDS: dexAMETHasone 4 MG TABLET PO ×2 (09:02→16:14)
[2024-07-06] MEDS: Morphine Sulfate ER 15 MG TABLET.ER PO ×3 (09:02→20:10)
[2024-07-06] MEDS: Docusate Sodium 100 MG CAPSULE PO ×2 (09:02→20:08)
--- NOTE | 2024-07-06 09:23 | MHC.CLN ---
NUTRITION PATIENT ADMITTED ON HOSPICE CARE. RD AVAILABLE NEEDED.
[2024-07-06] MEDS: Albuterol Sulfate 90 MCG 8 GM INHALER 2 PUFF INHALE ×2 (09:29→20:07)
--- NOTE | 2024-07-06 10:24 | MHC.CM.PN ---
Patient on [facility] Hospice. [facility] SW requested a referral to [facility] [employer]. The patient needs a secondary payor for Room[facility]board in a SNF. A referral has been sent. CM will follow for discharge home with hospice vs Hospice in a SNF. Patient will transport via BLS.
--- NOTE | 2024-07-06 12:14 | HO.PM.IMPN ---
Subjective Subjective Date of Service: 07/06/24 Interval History: No acute issues overnight. States pain control adequate Review of Systems Denies chest pain Denies shortness of breath Denies nausea vomiting diarrhea Denies fever chills Physical Exam Vital Signs: Vital Signs: Last Vital Signs Temp 97.4 F 07/06/24 07:34 Pulse 60 07/06/24 07:34 Resp 14 07/06/24 07:34 BP 168/79 H 07/06/24 07:34 Pulse Ox 95 07/06/24 07:34 O2 Del Method Room Air 07/06/24 07:34 O2 Flow Rate 2 07/04/24 15:09 BMI result Body Mass Index 26.6 Const: Other: Awake alert no acute distress Resp: Other: Clear to auscultation bilaterally no rales rhonchi or wheezes Cardio: Other: No S4; positive S1-S2; no S3 murmurs rubs or gallops GI: Other: Soft nontender nondistended normoactive bowel sounds Extrem: Other: No edema bilaterally Objective Data Active Medications Acetaminophen (Acetaminophen 325 Mg Tablet) 650 mg PO Q6H PRN PRN Reason: Fever Albuterol Sulfate (Albuterol Sulfate 90 Mcg 8 Gm Inhaler) 2 puff INHALE RQ4H PRN PRN Reason: sob Last Admin: 07/06/24 09:29 Dose: 2 puff Documented By: MAYRA Amlodipine Besylate (Amlodipine Besylate 5 Mg Tablet) 5 mg PO DAILY [facility]; Protocol Last Admin: 07/06/24 09:01 Dose: 5 mg Documented By: MAYRA Bisacodyl (Bisacodyl 10 Mg Supp.Rect) 10 mg [place] BEDTIME PRN PRN Reason: Constipation Dexamethasone (Dexamethasone 4 Mg Tablet) 4 mg PO BIDWM [facility] Last Admin: 07/06/24 09:02 Dose: 4 mg Documented By: MAYRA Docusate Sodium (Docusate Sodium 100 Mg Capsule) 100 mg PO BID [facility] Last Admin: 07/06/24 09:02 Dose: 100 mg Documented By: MAYRA Haloperidol (Haloperidol 1 Mg Tablet) 1 mg PO BID PRN PRN Reason: Anxiety/Restlessness Lactulose (Lactulose 20 Gm/30 Ml Solution) 20 gm PO DAILY PRN PRN Reason: Constipation Lorazepam (Lorazepam 0.5 Mg Tablet) 0.5 mg PO Q6H PRN PRN Reason: anxiety/restlessness Last Admin: 07/04/24 08:00 Dose: 0.5 mg Documented By: JAMAICA Morphine Sulfate (Morphine Sulfate Er 15 Mg Tablet.Er) 15 mg PO TID [facility] Last Admin: 07/06/24 09:02 Dose: 15 mg Documented By: MAYRA Morphine Sulfate (Morphine Sulfate Er 30 Mg Tablet.Er) 60 mg PO TID [facility] Last Admin: 07/06/24 09:01 Dose: 60 mg Documented By: MAYRA Ondansetron HCl (Ondansetron Hcl 4 Mg/2 Ml Vial) 4 mg IVPUSH Q8H PRN PRN Reason: Nausea Oxycodone HCl (Oxycodone Hcl Immed Release 5 Mg Tablet) 10 mg PO Q4H PRN PRN Reason: Pain, Severe (Pain Scale 7-10) Last Admin: 07/06/24 04:26 Dose: 10 mg Documented By: JERONIMO Polyethylene Glycol (Polyethylene Glycol 3350 17 Gm Powd.Pack) 17 gm PO DAILY [facility] Last Admin: 07/05/24 09:35 Dose: 17 gm Documented By: JAMAICA Senna (Sennosides 8.6 Mg Tablet) 17.2 mg PO BEDTIME PRN PRN Reason: Constipation Trazodone HCl (Trazodone Hcl 100 Mg Tablet) 100 mg PO BEDTIME PRN PRN Reason: sleep Last Admin: 07/03/24 20:51 Dose: 100 mg Documented By: SANDRA Assessment and Plan (1) Metastatic cancer: Status: Acute (2) Bladder carcinoma: Status: Acute Plan 74-year-old gentleman with past medical history significant for metastatic bladder cancer, chronic kidney disease stage 3, hypertension, mood disorder, history of asthma, 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 1.Metastatic bladder cancer with Mets admitted under [facility] hospice -MS Contin 75 mg t.i.d.,; continue dexamethasone dose adjusted to 4 mg b.i.d. -continue Ativan /Haldol/trazodone as needed for anxiety (continued from home medications) -oxygen for comfort/stool softeners 2.Chronic kidney disease stage 3 -stable well compensated -continue to follow clinically 3Hypertension -poor control at this time -increase Norvasc to 10 mg daily -adjust as clinically indicated 4.Intermittent asthma -stable at this time. DNR DNI/[facility] hospice Spoke with [facility] nurse she agreed with above medication adjustment, hospice has no plan for arranging intravenous medication at home via [employer] patient was sent due to noncompliance with medications and uncontrolled pain Unable to take care of himself and possible placement. Quality Stroke Does the patient have a stroke diagnosis?: No VTE Prior VTE?: No VTE Risk Level:: Medical - moderate - high VTE Device Contraindication: Treatment Not Indicated VTE Drug Contraindication: Treatment Not Indicated
[2024-07-06 19:41] VITALS: BP 158/82; PULSE 71; RESP 18; TEMP 36.2; O2SAT 97
[2024-07-06] MEDS: traZODone HCL 100 MG TABLET PO (21:21)
[2024-07-07] MEDS: oxyCODONE HCl Immed Release 5 MG TABLET 10 MG PO (03:34)
[2024-07-07] MEDS: LORazepam 0.5 MG TABLET PO (04:15)
[2024-07-07 08:00] VITALS: BP 172/73; PULSE 67; RESP 16; TEMP 36.1; O2SAT 97
[2024-07-07] MEDS: dexAMETHasone 4 MG TABLET PO ×2 (08:34→16:48)
[2024-07-07] MEDS: amLODIPine Besylate 5 MG TABLET PO (08:34)
[2024-07-07] MEDS: Morphine Sulfate ER 30 MG TABLET.ER 60 MG PO ×3 (08:34→19:36)
[2024-07-07] MEDS: Docusate Sodium 100 MG CAPSULE PO ×2 (08:34→19:35)
[2024-07-07] MEDS: Morphine Sulfate ER 15 MG TABLET.ER PO ×3 (08:34→19:35)
[2024-07-07] MEDS: polyethylene glycoL 3350 17 GM POWD.PACK PO (08:37)
[2024-07-07] MEDS: Albuterol Sulfate 90 MCG 8 GM INHALER 2 PUFF INHALE (13:31)
--- NOTE | 2024-07-07 14:47 | P.PNIM_ITS ---
Subjective Subjective Date of Service: 07/07/24 Interval History: No acute issues. Pain control adequate Review of Systems Denies chest pain Denies shortness of breath Denies nausea vomiting diarrhea Denies fever chills Physical Exam Vital Signs: Vital Signs: Last Vital Signs Temp 97.0 F 07/07/24 08:00 Pulse 67 07/07/24 08:00 Resp 16 07/07/24 08:00 BP 172/73 H 07/07/24 08:00 Pulse Ox 97 07/07/24 08:00 O2 Del Method Room Air 07/07/24 08:00 O2 Flow Rate 2 07/04/24 15:09 BMI result Body Mass Index 26.6 Const: Other: Awake alert no acute distress Resp: Other: Clear to auscultation bilaterally no rales rhonchi or wheezes Cardio: Other: No S4; positive S1-S2; no S3 murmurs rubs or gallops GI: Other: Soft nontender nondistended normoactive bowel sounds Extrem: Other: No edema bilaterally Objective Data Active Medications Acetaminophen (Acetaminophen 325 Mg Tablet) 650 mg PO Q6H PRN PRN Reason: Fever Albuterol Sulfate (Albuterol Sulfate 90 Mcg 8 Gm Inhaler) 2 puff INHALE RQ4H PRN PRN Reason: sob Last Admin: 07/07/24 13:31 Dose: 2 puff Documented By: MAYRA Amlodipine Besylate (Amlodipine Besylate 5 Mg Tablet) 5 mg PO DAILY [facility]; Protocol Last Admin: 07/07/24 08:34 Dose: 5 mg Documented By: MAYRA Bisacodyl (Bisacodyl 10 Mg Supp.Rect) 10 mg [place] BEDTIME PRN PRN Reason: Constipation Dexamethasone (Dexamethasone 4 Mg Tablet) 4 mg PO BIDWM [facility] Last Admin: 07/07/24 08:34 Dose: 4 mg Documented By: MAYRA Docusate Sodium (Docusate Sodium 100 Mg Capsule) 100 mg PO BID [facility] Last Admin: 07/07/24 08:34 Dose: 100 mg Documented By: MAYRA Haloperidol (Haloperidol 1 Mg Tablet) 1 mg PO BID PRN PRN Reason: Anxiety/Restlessness Lactulose (Lactulose 20 Gm/30 Ml Solution) 20 gm PO DAILY PRN PRN Reason: Constipation Lorazepam (Lorazepam 0.5 Mg Tablet) 0.5 mg PO Q6H PRN PRN Reason: anxiety/restlessness Last Admin: 07/07/24 04:15 Dose: 0.5 mg Documented By: PHILL Morphine Sulfate (Morphine Sulfate Er 15 Mg Tablet.Er) 15 mg PO TID [facility] Last Admin: 07/07/24 08:34 Dose: 15 mg Documented By: MAYRA Morphine Sulfate (Morphine Sulfate Er 30 Mg Tablet.Er) 60 mg PO TID [facility] Last Admin: 07/07/24 08:34 Dose: 60 mg Documented By: MAYRA Ondansetron HCl (Ondansetron Hcl 4 Mg/2 Ml Vial) 4 mg IVPUSH Q8H PRN PRN Reason: Nausea Oxycodone HCl (Oxycodone Hcl Immed Release 5 Mg Tablet) 10 mg PO Q4H PRN PRN Reason: Pain, Severe (Pain Scale 7-10) Last Admin: 07/07/24 03:34 Dose: 10 mg Documented By: PHILL Polyethylene Glycol (Polyethylene Glycol 3350 17 Gm Powd.Pack) 17 gm PO DAILY [facility] Last Admin: 07/07/24 08:37 Dose: 17 gm Documented By: MAYRA Senna (Sennosides 8.6 Mg Tablet) 17.2 mg PO BEDTIME PRN PRN Reason: Constipation Trazodone HCl (Trazodone Hcl 100 Mg Tablet) 100 mg PO BEDTIME PRN PRN Reason: sleep Last Admin: 07/06/24 21:21 Dose: 100 mg Documented By: PHILL Assessment and Plan (1) Metastatic cancer: Status: Acute (2) Bladder carcinoma: Status: Acute Plan 74-year-old gentleman with past medical history significant for metastatic bladder cancer, chronic kidney disease stage 3, hypertension, mood disorder, history of asthma, 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 1.Metastatic bladder cancer with Mets admitted under [facility] hospice -MS Contin 75 mg t.i.d.,; continue dexamethasone dose adjusted to 4 mg b.i.d. -continue Ativan /Haldol/trazodone as needed for anxiety (continued from home medications) -oxygen for comfort/stool softeners -adjust as clinically indicated 2.Chronic kidney disease stage 3 -stable well compensated -continue to follow clinically 3Hypertension -poor control at this time -increase Norvasc to 10 mg daily -adjust as clinically indicated 4.Intermittent asthma -stable at this time. DNR [facility] hospice Spoke with [facility] nurse she agreed with above medication adjustment, hospice has no plan for arranging intravenous medication at home via [employer] patient was sent due to noncompliance with medications and uncontrolled pain Unable to take care of himself and possible placement. Quality Stroke Does the patient have a stroke diagnosis?: No VTE Prior VTE?: No VTE Risk Level:: Medical - moderate - high VTE Device Contraindication: Treatment Not Indicated VTE Drug Contraindication: Treatment Not Indicated
[2024-07-07 14:59] VITALS: BP 139/65; PULSE 93; RESP 18; TEMP 36.7; O2SAT 94
[2024-07-07 20:00] VITALS: BP 140/74; PULSE 83; RESP 18; TEMP 36.1; O2SAT 94
[2024-07-07] MEDS: traZODone HCL 100 MG TABLET PO (20:30)
[2024-07-07 21:18] VITALS: PULSE 95; RESP 16; O2SAT 93
[2024-07-07] MEDS: Albuterol/Iprat 2.5/0.5MG 3 ML AMPUL.NEB INHALE (21:28)
[2024-07-08] MEDS: LORazepam 0.5 MG TABLET PO (01:30)
[2024-07-08] MEDS: oxyCODONE HCl Immed Release 5 MG TABLET 10 MG PO (06:19)
[2024-07-08 07:44] VITALS: BP 186/89; PULSE 52; RESP 16; TEMP 36.1; O2SAT 97
[2024-07-08] MEDS: Docusate Sodium 100 MG CAPSULE PO ×2 (07:52→20:11)
[2024-07-08] MEDS: Morphine Sulfate ER 15 MG TABLET.ER PO ×3 (07:52→20:12)
[2024-07-08] MEDS: dexAMETHasone 4 MG TABLET PO ×2 (07:52→17:50)
[2024-07-08] MEDS: amLODIPine Besylate 5 MG TABLET PO (07:52)
[2024-07-08] MEDS: Morphine Sulfate ER 30 MG TABLET.ER 60 MG PO ×3 (07:52→20:12)
[2024-07-08] MEDS: polyethylene glycoL 3350 17 GM POWD.PACK PO (07:52)
[2024-07-08 09:18] VITALS: BP 179/82; PULSE 78
[2024-07-08] MEDS: oxyCODONE HCl Immed Release 15 MG TABLET PO ×2 (09:43→13:43)
--- NOTE | 2024-07-08 11:58 | HO.PM.IMPN ---
Subjective Subjective Date of Service: 07/08/24 Interval History: GI IP hospice. States pain control not well managed Review of Systems Denies chest pain Denies shortness of breath Denies nausea vomiting diarrhea Denies fever chills Physical Exam Vital Signs: Vital Signs: Last Vital Signs Temp 97.0 F 07/08/24 07:44 Pulse 78 07/08/24 09:18 Resp 16 07/08/24 07:44 BP 179/82 H 07/08/24 09:18 Pulse Ox 97 07/08/24 07:44 O2 Del Method Room Air 07/08/24 07:44 O2 Flow Rate 2 07/07/24 20:00 BMI result Body Mass Index 26.6 Const: Other: Awake alert no acute distress Resp: Other: Clear to auscultation bilaterally no rales rhonchi or wheezes Cardio: Other: No S4; positive S1-S2; no S3 murmurs rubs or gallops GI: Other: Soft nontender nondistended normoactive bowel sounds Extrem: Other: No edema bilaterally Objective Data Active Medications Acetaminophen (Acetaminophen 325 Mg Tablet) 650 mg PO Q6H PRN PRN Reason: Fever Albuterol Sulfate (Albuterol Sulfate 90 Mcg 8 Gm Inhaler) 2 puff INHALE RQ4H PRN PRN Reason: sob Last Admin: 07/07/24 13:31 Dose: 2 puff Documented By: MAYRA Albuterol/Ipratropium (Albuterol/Iprat 2.5/0.5mg 3 Ml Ampul.Neb) 3 ml INHALE Q4H PRN PRN Reason: Wheezing Last Admin: 07/07/24 21:28 Dose: 3 ml Documented By: MINH Amlodipine Besylate (Amlodipine Besylate 5 Mg Tablet) 5 mg PO DAILY [facility]; Protocol Last Admin: 07/08/24 07:52 Dose: 5 mg Documented By: DARCI Bisacodyl (Bisacodyl 10 Mg Supp.Rect) 10 mg [place] BEDTIME PRN PRN Reason: Constipation Dexamethasone (Dexamethasone 4 Mg Tablet) 4 mg PO BIDWM [facility] Last Admin: 07/08/24 07:52 Dose: 4 mg Documented By: DARCI Docusate Sodium (Docusate Sodium 100 Mg Capsule) 100 mg PO BID [facility] Last Admin: 07/08/24 07:52 Dose: 100 mg Documented By: DARCI Haloperidol (Haloperidol 1 Mg Tablet) 1 mg PO BID PRN PRN Reason: Anxiety/Restlessness Hydromorphone HCl (Hydromorphone Hcl 1 Mg/Ml Syringe) 1 mg IVPUSH Q3H PRN; Protocol PRN Reason: Pain, Severe (Pain Scale 7-10) Lactulose (Lactulose 20 Gm/30 Ml Solution) 20 gm PO DAILY PRN PRN Reason: Constipation Lorazepam (Lorazepam 0.5 Mg Tablet) 0.5 mg PO Q6H PRN PRN Reason: anxiety/restlessness Last Admin: 07/08/24 01:30 Dose: 0.5 mg Documented By: PHILL Morphine Sulfate (Morphine Sulfate Er 15 Mg Tablet.Er) 15 mg PO TID [facility] Last Admin: 07/08/24 07:52 Dose: 15 mg Documented By: DARCI Morphine Sulfate (Morphine Sulfate Er 30 Mg Tablet.Er) 60 mg PO TID [facility] Last Admin: 07/08/24 07:52 Dose: 60 mg Documented By: DARCI Ondansetron HCl (Ondansetron Hcl 4 Mg/2 Ml Vial) 4 mg IVPUSH Q8H PRN PRN Reason: Nausea Oxycodone HCl (Oxycodone Hcl Immed Release 15 Mg Tablet) 15 mg PO Q4H PRN PRN Reason: Pain, Moderate(Pain Scale 4-6) Last Admin: 07/08/24 09:43 Dose: 15 mg Documented By: DARCI Polyethylene Glycol (Polyethylene Glycol 3350 17 Gm Powd.Pack) 17 gm PO DAILY [facility] Last Admin: 07/08/24 07:52 Dose: 17 gm Documented By: DARCI Senna (Sennosides 8.6 Mg Tablet) 17.2 mg PO BEDTIME PRN PRN Reason: Constipation Trazodone HCl (Trazodone Hcl 100 Mg Tablet) 100 mg PO BEDTIME PRN PRN Reason: sleep Last Admin: 07/07/24 20:30 Dose: 100 mg Documented By: PHILL Assessment and Plan (1) Bladder carcinoma: Status: Acute (2) Metastatic cancer: Status: Acute Plan 74-year-old gentleman with past medical history significant for metastatic bladder cancer, chronic kidney disease stage 3, hypertension, mood disorder, history of asthma, 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 1.Metastatic bladder cancer with Mets admitted under [facility] hospice -MS Contin 75 mg t.i.d.,; continue dexamethasone dose adjusted to 4 mg b.i.d... Oxycodone added along with pulse dose Dilaudid -continue Ativan /Haldol/trazodone as needed for anxiety (continued from home medications) -oxygen for comfort/stool softeners -adjust as clinically indicated 2.Chronic kidney disease stage 3 -stable well compensated -continue to follow clinically 3Hypertension -poor control at this time -increase Norvasc to 10 mg daily -adjust as clinically indicated 4.Intermittent asthma -stable at this time. DNR [facility] hospice Spoke with [facility] nurse she agreed with above medication adjustment, hospice has no plan for arranging intravenous medication at home via [employer] patient was sent due to noncompliance with medications and uncontrolled pain Unable to take care of himself and possible placement. Quality Stroke Does the patient have a stroke diagnosis?: No VTE Prior VTE?: No VTE Risk Level:: Medical - moderate - high VTE Device Contraindication: Treatment Not Indicated VTE Drug Contraindication: Treatment Not Indicated
[2024-07-08 13:26] VITALS: BP 166/78
--- NOTE | 2024-07-08 13:46 | MHC.CM.PN ---
DP on hospice with [facility] to the [facility] via BLS when a bed is available, Per [facility]. CM will continue to follow.
[2024-07-08] MEDS: Albuterol Sulfate 90 MCG 8 GM INHALER 2 PUFF INHALE (20:12)
[2024-07-08] MEDS: traZODone HCL 100 MG TABLET PO (20:14)
[2024-07-08 21:00] VITALS: BP 164/80; PULSE 91; RESP 18; TEMP 37.1; O2SAT 95
[2024-07-08] MEDS: Albuterol/Iprat 2.5/0.5MG 3 ML AMPUL.NEB INHALE (21:06)
[2024-07-08 21:11] VITALS: PULSE 91; RESP 18; O2SAT 95
[2024-07-09] MEDS: HYDROmorphone HCl 1 MG/ML SYRINGE IVPUSH (04:49)
[2024-07-09 05:10] VITALS: RESP 16
[2024-07-09 08:00] VITALS: BP 154/72; PULSE 69; RESP 16; TEMP 36.1; O2SAT 95
[2024-07-09] MEDS: Docusate Sodium 100 MG CAPSULE PO ×2 (09:43→22:39)
[2024-07-09] MEDS: dexAMETHasone 4 MG TABLET PO ×2 (09:43→16:42)
[2024-07-09] MEDS: polyethylene glycoL 3350 17 GM POWD.PACK PO (09:43)
[2024-07-09] MEDS: Morphine Sulfate ER 30 MG TABLET.ER 60 MG PO ×3 (09:44→22:38)
[2024-07-09] MEDS: Morphine Sulfate ER 15 MG TABLET.ER PO ×3 (09:44→22:38)
[2024-07-09 09:46] VITALS: BP 141/68
[2024-07-09] MEDS: amLODIPine Besylate 5 MG TABLET PO (09:46)
[2024-07-09] MEDS: oxyCODONE HCl Immed Release 15 MG TABLET PO (10:00)
--- NOTE | 2024-07-09 12:09 | HO.PM.IMPN ---
Subjective Subjective Date of Service: 07/09/24 Interval History: Good response to med changes. Pain much better control Review of Systems Denies chest pain Denies shortness of breath Denies nausea vomiting diarrhea Denies fever chills Physical Exam Vital Signs: Vital Signs: Last Vital Signs Temp 97.0 F 07/09/24 08:00 Pulse 69 07/09/24 08:00 Resp 16 07/09/24 08:00 BP 141/68 H 07/09/24 09:46 Pulse Ox 95 07/09/24 08:00 O2 Del Method Room Air 07/09/24 08:00 O2 Flow Rate 2 07/07/24 20:00 BMI result Body Mass Index 26.6 Const: Other: Awake alert no acute distress Resp: Other: Clear to auscultation bilaterally no rales rhonchi or wheezes Cardio: Other: No S4; positive S1-S2; no S3 murmurs rubs or gallops GI: Other: Soft nontender nondistended normoactive bowel sounds Extrem: Other: No edema bilaterally Objective Data Active Medications Acetaminophen (Acetaminophen 325 Mg Tablet) 650 mg PO Q6H PRN PRN Reason: Fever Albuterol Sulfate (Albuterol Sulfate 90 Mcg 8 Gm Inhaler) 2 puff INHALE RQ4H PRN PRN Reason: sob Last Admin: 07/08/24 20:12 Dose: 2 puff Documented By: KEVIN Albuterol/Ipratropium (Albuterol/Iprat 2.5/0.5mg 3 Ml Ampul.Neb) 3 ml INHALE Q4H PRN PRN Reason: Wheezing Last Admin: 07/08/24 21:06 Dose: 3 ml Documented By: RAQUEL Amlodipine Besylate (Amlodipine Besylate 5 Mg Tablet) 5 mg PO DAILY [facility]; Protocol Last Admin: 07/09/24 09:46 Dose: 5 mg Documented By: LUL Bisacodyl (Bisacodyl 10 Mg Supp.Rect) 10 mg [place] BEDTIME PRN PRN Reason: Constipation Dexamethasone (Dexamethasone 4 Mg Tablet) 4 mg PO BIDWM [facility] Last Admin: 07/09/24 09:43 Dose: 4 mg Documented By: LUL Docusate Sodium (Docusate Sodium 100 Mg Capsule) 100 mg PO BID [facility] Last Admin: 07/09/24 09:43 Dose: 100 mg Documented By: LUL Haloperidol (Haloperidol 1 Mg Tablet) 1 mg PO BID PRN PRN Reason: Anxiety/Restlessness Hydromorphone HCl (Hydromorphone Hcl 1 Mg/Ml Syringe) 1 mg IVPUSH Q3H PRN; Protocol PRN Reason: Pain, Severe (Pain Scale 7-10) Last Admin: 07/09/24 04:49 Dose: 1 mg Documented By: KETAN Lactulose (Lactulose 20 Gm/30 Ml Solution) 20 gm PO DAILY PRN PRN Reason: Constipation Morphine Sulfate (Morphine Sulfate Er 15 Mg Tablet.Er) 15 mg PO TID [facility] Last Admin: 07/09/24 09:44 Dose: 15 mg Documented By: LUL Morphine Sulfate (Morphine Sulfate Er 30 Mg Tablet.Er) 60 mg PO TID [facility] Last Admin: 07/09/24 09:44 Dose: 60 mg Documented By: LUL Ondansetron HCl (Ondansetron Hcl 4 Mg/2 Ml Vial) 4 mg IVPUSH Q8H PRN PRN Reason: Nausea Oxycodone HCl (Oxycodone Hcl Immed Release 15 Mg Tablet) 15 mg PO Q4H PRN PRN Reason: Pain, Moderate(Pain Scale 4-6) Last Admin: 07/09/24 10:00 Dose: 15 mg Documented By: LUL Polyethylene Glycol (Polyethylene Glycol 3350 17 Gm Powd.Pack) 17 gm PO DAILY [facility] Last Admin: 07/09/24 09:43 Dose: 17 gm Documented By: LUL Senna (Sennosides 8.6 Mg Tablet) 17.2 mg PO BEDTIME PRN PRN Reason: Constipation Trazodone HCl (Trazodone Hcl 100 Mg Tablet) 100 mg PO BEDTIME PRN PRN Reason: sleep Last Admin: 07/08/24 20:14 Dose: 100 mg Documented By: KEVIN Assessment and Plan (1) Metastatic cancer: Status: Acute (2) Bladder carcinoma: Status: Acute Plan 74-year-old gentleman with past medical history significant for metastatic bladder cancer, chronic kidney disease stage 3, hypertension, mood disorder, history of asthma, 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 1.Metastatic bladder cancer with Mets admitted under [facility] hospice -MS Contin 75 mg t.i.d.,; continue dexamethasone dose adjusted to 4 mg b.i.d... Oxycodone added along with pulse dose Dilaudid.. Good results -continue Ativan /Haldol/trazodone as needed for anxiety (continued from home medications) -oxygen for comfort/stool softeners -adjust as clinically indicated 2.Chronic kidney disease stage 3 -stable well compensated -continue to follow clinically 3Hypertension -poor control at this time -increase Norvasc to 10 mg daily -adjust as clinically indicated 4.Intermittent asthma -stable at this time. DNR [facility] hospice Spoke with [facility] nurse she agreed with above medication adjustment, hospice has no plan for arranging intravenous medication at home via [employer] patient was sent due to noncompliance with medications and uncontrolled pain Unable to take care of himself and possible placement. Quality Stroke Does the patient have a stroke diagnosis?: No VTE Prior VTE?: No VTE Risk Level:: Medical - moderate - high VTE Device Contraindication: Treatment Not Indicated VTE Drug Contraindication: Treatment Not Indicated
--- NOTE | 2024-07-09 12:29 | MHC.CM.PN ---
Addendum entered by Julia Mckeon 07/09/24 13:37: [facility] is interested and asking for patients Medicare card and ID. Information has been sent as requested. An offer to come in to meet with the patient has been extended. MD and [facility] have been informed of the SNFs interest. Original Note: [employer] application for LTC has been sent to local SNFs. [facility] in a SNF vs [facility] via BLS.
[2024-07-09 19:30] VITALS: BP 158/79; PULSE 102; RESP 16; TEMP 36.7; O2SAT 95
[2024-07-09 19:38] VITALS: PULSE 102; RESP 18; O2SAT 94
[2024-07-09] MEDS: Albuterol/Iprat 2.5/0.5MG 3 ML AMPUL.NEB INHALE (19:38)
[2024-07-09] MEDS: traZODone HCL 100 MG TABLET PO (20:31)
[2024-07-10 03:31] VITALS: BP 156/70; PULSE 77; RESP 16; TEMP 36.3; O2SAT 96
[2024-07-10] MEDS: HYDROmorphone HCl 1 MG/ML SYRINGE IVPUSH (03:33)
[2024-07-10] MEDS: oxyCODONE HCl Immed Release 15 MG TABLET PO ×3 (06:48→14:33)
[2024-07-10] MEDS: dexAMETHasone 4 MG TABLET PO ×2 (06:48→16:45)
[2024-07-10 07:27] VITALS: BP 148/78; PULSE 66; RESP 16; TEMP 36.1; O2SAT 96
[2024-07-10] MEDS: polyethylene glycoL 3350 17 GM POWD.PACK PO (07:50)
[2024-07-10] MEDS: Morphine Sulfate ER 30 MG TABLET.ER 60 MG PO ×3 (07:50→20:43)
[2024-07-10] MEDS: Docusate Sodium 100 MG CAPSULE PO ×2 (07:50→20:44)
[2024-07-10] MEDS: amLODIPine Besylate 5 MG TABLET PO (07:50)
[2024-07-10] MEDS: Morphine Sulfate ER 15 MG TABLET.ER PO ×3 (07:50→20:44)
--- NOTE | 2024-07-10 12:42 | HO.PM.IMPN ---
Subjective Subjective Date of Service: 07/10/24 Interval History: No acute issues overnight. Pain control adequate Review of Systems Denies chest pain Denies shortness of breath Denies nausea vomiting diarrhea Denies fever chills Physical Exam Vital Signs: Vital Signs: Last Vital Signs Temp 97.0 F 07/10/24 07:27 Pulse 66 07/10/24 07:27 Resp 16 07/10/24 07:27 BP 148/78 H 07/10/24 07:27 Pulse Ox 96 07/10/24 07:27 O2 Del Method Room Air 07/10/24 07:27 O2 Flow Rate 2 07/07/24 20:00 BMI result Body Mass Index 26.6 Const: Other: Awake alert no acute distress Resp: Other: Clear to auscultation bilaterally no rales rhonchi or wheezes Cardio: Other: No S4; positive S1-S2; no S3 murmurs rubs or gallops GI: Other: Soft nontender nondistended normoactive bowel sounds Extrem: Other: No edema bilaterally Objective Data Active Medications Acetaminophen (Acetaminophen 325 Mg Tablet) 650 mg PO Q6H PRN PRN Reason: Fever Albuterol Sulfate (Albuterol Sulfate 90 Mcg 8 Gm Inhaler) 2 puff INHALE RQ4H PRN PRN Reason: sob Last Admin: 07/08/24 20:12 Dose: 2 puff Documented By: KEVIN Albuterol/Ipratropium (Albuterol/Iprat 2.5/0.5mg 3 Ml Ampul.Neb) 3 ml INHALE Q4H PRN PRN Reason: Wheezing Last Admin: 07/09/24 19:38 Dose: 3 ml Documented By: RAQUEL Amlodipine Besylate (Amlodipine Besylate 5 Mg Tablet) 5 mg PO DAILY [facility]; Protocol Last Admin: 07/10/24 07:50 Dose: 5 mg Documented By: DARCI Bisacodyl (Bisacodyl 10 Mg Supp.Rect) 10 mg [place] BEDTIME PRN PRN Reason: Constipation Dexamethasone (Dexamethasone 4 Mg Tablet) 4 mg PO BIDWM [facility] Last Admin: 07/10/24 06:48 Dose: 4 mg Documented By: DARCI Docusate Sodium (Docusate Sodium 100 Mg Capsule) 100 mg PO BID [facility] Last Admin: 07/10/24 07:50 Dose: 100 mg Documented By: DARCI Haloperidol (Haloperidol 1 Mg Tablet) 1 mg PO BID PRN PRN Reason: Anxiety/Restlessness Hydromorphone HCl (Hydromorphone Hcl 1 Mg/Ml Syringe) 1 mg IVPUSH Q3H PRN; Protocol PRN Reason: Pain, Severe (Pain Scale 7-10) Last Admin: 07/10/24 03:33 Dose: 1 mg Documented By: ZONIA Lactulose (Lactulose 20 Gm/30 Ml Solution) 20 gm PO DAILY PRN PRN Reason: Constipation Ondansetron HCl (Ondansetron Hcl 4 Mg/2 Ml Vial) 4 mg IVPUSH Q8H PRN PRN Reason: Nausea Oxycodone HCl (Oxycodone Hcl Immed Release 15 Mg Tablet) 15 mg PO Q4H PRN PRN Reason: Pain, Moderate(Pain Scale 4-6) Last Admin: 07/10/24 10:38 Dose: 15 mg Documented By: DARCI Polyethylene Glycol (Polyethylene Glycol 3350 17 Gm Powd.Pack) 17 gm PO DAILY [facility] Last Admin: 07/10/24 07:50 Dose: 17 gm Documented By: DARCI Senna (Sennosides 8.6 Mg Tablet) 17.2 mg PO BEDTIME PRN PRN Reason: Constipation Trazodone HCl (Trazodone Hcl 100 Mg Tablet) 100 mg PO BEDTIME PRN PRN Reason: sleep Last Admin: 07/09/24 20:31 Dose: 100 mg Documented By: ZONIA Assessment and Plan (1) Metastatic cancer: Status: Acute (2) Bladder carcinoma: Status: Acute Plan 74-year-old gentleman with past medical history significant for metastatic bladder cancer, chronic kidney disease stage 3, hypertension, mood disorder, history of asthma, 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 1.Metastatic bladder cancer with Mets admitted under [facility] hospice -MS Contin 75 mg t.i.d.,; continue dexamethasone dose adjusted to 4 mg b.i.d... Oxycodone added along with pulse dose Dilaudid.. Good results -continue Ativan /Haldol/trazodone as needed for anxiety (continued from home medications) -oxygen for comfort/stool softeners -adjust as clinically indicated 2.Chronic kidney disease stage 3 -stable well compensated -continue to follow clinically 3Hypertension -poor control at this time -increase Norvasc to 10 mg daily -adjust as clinically indicated 4.Intermittent asthma -stable at this time. DNR [facility] hospice Spoke with [facility] nurse she agreed with above medication adjustment, hospice has no plan for arranging intravenous medication at home via [employer] patient was sent due to noncompliance with medications and uncontrolled pain Unable to take care of himself and possible placement. Quality Stroke Does the patient have a stroke diagnosis?: No VTE Prior VTE?: No VTE Risk Level:: Medical - moderate - high VTE Device Contraindication: Treatment Not Indicated VTE Drug Contraindication: Treatment Not Indicated
--- NOTE | 2024-07-10 12:48 | MHC.CM.PN ---
SNF referrals sent yesterday, have not generated any bed offers. Per the [facility] SW, Cayla Fernandez may be able to accept the patient next week. [facility] in a facility via BLS.
[2024-07-10 19:21] VITALS: BP 150/73; PULSE 97; RESP 20; TEMP 36.3; O2SAT 95
[2024-07-10] MEDS: traZODone HCL 100 MG TABLET PO (20:44)
[2024-07-11 03:48] VITALS: BP 151/73; PULSE 77; RESP 18; TEMP 36.3; O2SAT 96
[2024-07-11] MEDS: HYDROmorphone HCl 1 MG/ML SYRINGE IVPUSH ×2 (03:51→17:17)
[2024-07-11 07:13] VITALS: BP 135/78; PULSE 72; RESP 12; TEMP 36.2; O2SAT 95
[2024-07-11] MEDS: Docusate Sodium 100 MG CAPSULE PO ×2 (09:28→20:03)
[2024-07-11] MEDS: dexAMETHasone 4 MG TABLET PO ×2 (09:28→16:25)
[2024-07-11] MEDS: Morphine Sulfate ER 15 MG TABLET.ER PO ×3 (09:28→20:02)
[2024-07-11] MEDS: polyethylene glycoL 3350 17 GM POWD.PACK PO (09:29)
[2024-07-11] MEDS: Morphine Sulfate ER 30 MG TABLET.ER 60 MG PO ×3 (09:29→20:02)
--- NOTE | 2024-07-11 13:53 | P.PNIM_ITS ---
Subjective Subjective Date of Service: 07/11/24 Interval History: endorses adequate pain contrl Review of Systems Review of Systems: Yes all other systems are reviewed and are negative Physical Exam Vital Signs: Vital Signs: Last Vital Signs Temp 97.1 F 07/11/24 07:13 Pulse 72 07/11/24 07:13 Resp 12 07/11/24 07:13 BP 135/78 07/11/24 07:13 Pulse Ox 95 07/11/24 07:13 O2 Del Method Room Air 07/11/24 07:13 O2 Flow Rate 2 07/07/24 20:00 BMI result Body Mass Index 26.6 Gen: in no acute distress HEENT: sclera anicteric, moist mucus membranes Neck: supple Lungs: clear to auscultation bilaterally Heart: regular rate and rhythm, no murmurs Abd: soft, non-tender, non-distended Ext: no edema Skin: warm/well-perfused Neuro: alert and oriented x3, no focal findings Psych: appropriate affect Objective Data Active Medications Acetaminophen (Acetaminophen 325 Mg Tablet) 650 mg PO Q6H PRN PRN Reason: Fever Albuterol Sulfate (Albuterol Sulfate 90 Mcg 8 Gm Inhaler) 2 puff INHALE RQ4H PRN PRN Reason: sob Last Admin: 07/08/24 20:12 Dose: 2 puff Documented By: KEVIN Albuterol/Ipratropium (Albuterol/Iprat 2.5/0.5mg 3 Ml Ampul.Neb) 3 ml INHALE Q4H PRN PRN Reason: Wheezing Last Admin: 07/09/24 19:38 Dose: 3 ml Documented By: RAQUEL Bisacodyl (Bisacodyl 10 Mg Supp.Rect) 10 mg [place] BEDTIME PRN PRN Reason: Constipation Dexamethasone (Dexamethasone 4 Mg Tablet) 4 mg PO BIDWM [facility] Last Admin: 07/11/24 09:28 Dose: 4 mg Documented By: EVY Docusate Sodium (Docusate Sodium 100 Mg Capsule) 100 mg PO BID [facility] Last Admin: 07/11/24 09:28 Dose: 100 mg Documented By: EVY Haloperidol (Haloperidol 1 Mg Tablet) 1 mg PO BID PRN PRN Reason: Anxiety/Restlessness Hydromorphone HCl (Hydromorphone Hcl 1 Mg/Ml Syringe) 1 mg IVPUSH Q3H PRN; Protocol PRN Reason: Pain, Severe (Pain Scale 7-10) Last Admin: 07/11/24 03:51 Dose: 1 mg Documented By: ZONIA Lactulose (Lactulose 20 Gm/30 Ml Solution) 20 gm PO DAILY PRN PRN Reason: Constipation Morphine Sulfate (Morphine Sulfate Er 30 Mg Tablet.Er) 60 mg PO TID [facility] Last Admin: 07/11/24 09:29 Dose: 60 mg Documented By: EVY Morphine Sulfate (Morphine Sulfate Er 15 Mg Tablet.Er) 15 mg PO TID [facility] Last Admin: 07/11/24 09:28 Dose: 15 mg Documented By: EVY Ondansetron HCl (Ondansetron Hcl 4 Mg/2 Ml Vial) 4 mg IVPUSH Q8H PRN PRN Reason: Nausea Oxycodone HCl (Oxycodone Hcl Immed Release 15 Mg Tablet) 15 mg PO Q4H PRN PRN Reason: Pain, Moderate(Pain Scale 4-6) Last Admin: 07/10/24 14:33 Dose: 15 mg Documented By: DARCI Polyethylene Glycol (Polyethylene Glycol 3350 17 Gm Powd.Pack) 17 gm PO DAILY [facility] Last Admin: 07/11/24 09:29 Dose: 17 gm Documented By: EVY Senna (Sennosides 8.6 Mg Tablet) 17.2 mg PO BEDTIME PRN PRN Reason: Constipation Trazodone HCl (Trazodone Hcl 100 Mg Tablet) 100 mg PO BEDTIME PRN PRN Reason: sleep Last Admin: 07/10/24 20:44 Dose: 100 mg Documented By: ZONIA Assessment and Plan (1) Metastatic cancer: Status: Acute (2) Bladder carcinoma: Status: Acute Plan d9 for 74yo M with metastatic bladder CA, CKD3, HTN, mood disorder, asthma, 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 admitted under [facility] Hospice for uncontrolled pain metastatic bladder CA with CA-associated pain - MSSR 75mg tid + oxycodone 15mg q4h prn + hydromorphone IV 1mg q3h prn; dexam ethasone 4mg bid - continue lorazepam, haloperidol, trazodone prn HTN - discontinue amlodipine as it is not palliative VTE ppx - no heparin as it is not palliative dispo - plan eventual discharge to hospice facility as pt cannot take care of self In my clinical judgment, the patient requires continued inpatient hospitalization for the following reasons: placement Total time managing care of this patient today: 35 minutes. Quality Stroke Does the patient have a stroke diagnosis?: No VTE Prior VTE?: No VTE Risk Level:: Medical - moderate - high VTE Device Contraindication: Treatment Not Indicated VTE Drug Contraindication: Treatment Not Indicated
[2024-07-11 14:26] VITALS: PULSE 72; RESP 18; O2SAT 95
[2024-07-11] MEDS: Albuterol/Iprat 2.5/0.5MG 3 ML AMPUL.NEB INHALE ×2 (14:26→17:13)
[2024-07-11 17:15] VITALS: PULSE 113; RESP 20; O2SAT 96
[2024-07-11 17:21] VITALS: O2SAT 96
--- NOTE | 2024-07-11 17:25 | PC.NURSE ---
Patientc/o difficulty breathing,Dr. Villanueva notified ,evaluated patient,updraft ordered and administered by respiratory therapist,Dilaudid administered,patient states he feels better,sat 96% on 2l
[2024-07-11 19:10] VITALS: BP 131/70; PULSE 100; RESP 18; TEMP 36.6; O2SAT 94
[2024-07-11] MEDS: traZODone HCL 100 MG TABLET PO (20:03)
[2024-07-12] MEDS: HYDROmorphone HCl 1 MG/ML SYRINGE IVPUSH (01:55)
[2024-07-12 07:35] VITALS: BP 129/66; PULSE 77; RESP 18; TEMP 36; O2SAT 97
[2024-07-12] MEDS: dexAMETHasone 4 MG TABLET PO ×2 (08:55→16:29)
[2024-07-12] MEDS: Docusate Sodium 100 MG CAPSULE PO ×2 (08:55→22:26)
[2024-07-12] MEDS: Morphine Sulfate ER 30 MG TABLET.ER 60 MG PO ×3 (08:56→22:27)
[2024-07-12] MEDS: Morphine Sulfate ER 15 MG TABLET.ER PO ×3 (08:56→22:26)
[2024-07-12] MEDS: polyethylene glycoL 3350 17 GM POWD.PACK PO (08:57)
[2024-07-12] MEDS: Albuterol/Iprat 2.5/0.5MG 3 ML AMPUL.NEB INHALE ×2 (11:37→19:31)
[2024-07-12 11:38] VITALS: PULSE 77; RESP 18; O2SAT 93
--- NOTE | 2024-07-12 15:56 | HO.PM.IMPN ---
Subjective Subjective Date of Service: 07/12/24 Interval History: pain controlled no dyspnea Review of Systems Review of Systems: Yes all other systems are reviewed and are negative Physical Exam Vital Signs: Vital Signs: Last Vital Signs Temp 96.8 F 07/12/24 07:35 Pulse 77 07/12/24 11:38 Resp 18 07/12/24 11:38 BP 129/66 07/12/24 07:35 Pulse Ox 97 07/12/24 07:35 O2 Del Method Room Air 07/12/24 07:35 O2 Flow Rate 2 07/11/24 19:10 BMI result Body Mass Index 26.6 Gen: in no acute distress HEENT: sclera anicteric, moist mucus membranes Neck: supple Lungs: clear to auscultation bilaterally Heart: regular rate and rhythm, no murmurs Abd: soft, non-tender, non-distended Ext: no edema Skin: warm/well-perfused Neuro: alert and oriented x3, no focal findings Psych: appropriate affect Objective Data Active Medications Acetaminophen (Acetaminophen 325 Mg Tablet) 650 mg PO Q6H PRN PRN Reason: Fever Albuterol Sulfate (Albuterol Sulfate 90 Mcg 8 Gm Inhaler) 2 puff INHALE RQ4H PRN PRN Reason: sob Last Admin: 07/08/24 20:12 Dose: 2 puff Documented By: KEVIN Albuterol/Ipratropium (Albuterol/Iprat 2.5/0.5mg 3 Ml Ampul.Neb) 3 ml INHALE Q4H PRN PRN Reason: Wheezing Last Admin: 07/12/24 11:37 Dose: 3 ml Documented By: PALLAVI Bisacodyl (Bisacodyl 10 Mg Supp.Rect) 10 mg [place] BEDTIME PRN PRN Reason: Constipation Dexamethasone (Dexamethasone 4 Mg Tablet) 4 mg PO BIDWM [facility] Last Admin: 07/12/24 08:55 Dose: 4 mg Documented By: EVY Docusate Sodium (Docusate Sodium 100 Mg Capsule) 100 mg PO BID [facility] Last Admin: 07/12/24 08:55 Dose: 100 mg Documented By: EVY Haloperidol (Haloperidol 1 Mg Tablet) 1 mg PO BID PRN PRN Reason: Anxiety/Restlessness Hydromorphone HCl (Hydromorphone Hcl 1 Mg/Ml Syringe) 1 mg IVPUSH Q3H PRN; Protocol PRN Reason: Pain, Severe (Pain Scale 7-10) Last Admin: 07/12/24 01:55 Dose: 1 mg Documented By: ZONIA Lactulose (Lactulose 20 Gm/30 Ml Solution) 20 gm PO DAILY PRN PRN Reason: Constipation Morphine Sulfate (Morphine Sulfate Er 30 Mg Tablet.Er) 60 mg PO TID [facility] Last Admin: 07/12/24 14:28 Dose: 60 mg Documented By: EVY Morphine Sulfate (Morphine Sulfate Er 15 Mg Tablet.Er) 15 mg PO TID [facility] Last Admin: 07/12/24 14:29 Dose: 15 mg Documented By: EVY Ondansetron HCl (Ondansetron Hcl 4 Mg/2 Ml Vial) 4 mg IVPUSH Q8H PRN PRN Reason: Nausea Oxycodone HCl (Oxycodone Hcl Immed Release 15 Mg Tablet) 15 mg PO Q4H PRN PRN Reason: Pain, Moderate(Pain Scale 4-6) Last Admin: 07/10/24 14:33 Dose: 15 mg Documented By: DARCI Polyethylene Glycol (Polyethylene Glycol 3350 17 Gm Powd.Pack) 17 gm PO DAILY [facility] Last Admin: 07/12/24 08:57 Dose: 17 gm Documented By: EVY Senna (Sennosides 8.6 Mg Tablet) 17.2 mg PO BEDTIME PRN PRN Reason: Constipation Trazodone HCl (Trazodone Hcl 100 Mg Tablet) 100 mg PO BEDTIME PRN PRN Reason: sleep Last Admin: 07/11/24 20:03 Dose: 100 mg Documented By: ZONIA Assessment and Plan (1) Metastatic cancer: Status: Acute (2) Bladder carcinoma: Status: Acute Plan d10 for 74yo M with metastatic bladder CA, CKD3, HTN, mood disorder, asthma, 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 admitted under [facility] for uncontrolled pain metastatic bladder CA with CA-associated pain - MSSR 75mg tid + oxycodone 15mg q4h prn + hydromorphone IV 1mg q3h prn; dexamethasone 4mg bid - continue lorazepam, haloperidol, trazodone prn HTN - discontinued amlodipine as it is not palliative VTE ppx - no heparin as it is not palliative dispo - plan eventual discharge to hospice facility as pt cannot take care of self In my clinical judgment, the patient requires continued inpatient hospitalization for the following reasons: placement Total time managing care of this patient today: 35 minutes. Quality Stroke Does the patient have a stroke diagnosis?: No VTE Prior VTE?: No VTE Risk Level:: Medical - moderate - high VTE Device Contraindication: Treatment Not Indicated VTE Drug Contraindication: Treatment Not Indicated
[2024-07-12 19:34] VITALS: PULSE 104; RESP 18; O2SAT 96
[2024-07-12 20:00] VITALS: BP 146/81; PULSE 109; RESP 16; TEMP 35.7; O2SAT 94
[2024-07-12] MEDS: traZODone HCL 100 MG TABLET PO (22:27)
[2024-07-12 23:30] VITALS: RESP 18
[2024-07-12 23:47] VITALS: BP 136/67; PULSE 98; RESP 18; TEMP 36.2; O2SAT 94
[2024-07-13] VITALS (7 sets, daily range): BP systolic 129–135; BP diastolic 62–69; PULSE 79–109; RESP 16–20; TEMP 36.3; O2SAT 95–96
[2024-07-13] MEDS: HYDROmorphone HCl 1 MG/ML SYRINGE IVPUSH ×2 (01:00→06:13)
[2024-07-13] MEDS: oxyCODONE HCl Immed Release 15 MG TABLET PO ×3 (08:13→16:11)
[2024-07-13] MEDS: dexAMETHasone 4 MG TABLET PO ×2 (08:13→16:11)
[2024-07-13] MEDS: Morphine Sulfate ER 30 MG TABLET.ER 60 MG PO ×3 (08:13→20:43)
[2024-07-13] MEDS: Docusate Sodium 100 MG CAPSULE PO ×2 (08:13→20:43)
[2024-07-13] MEDS: Morphine Sulfate ER 15 MG TABLET.ER PO (08:14)
[2024-07-13] MEDS: polyethylene glycoL 3350 17 GM POWD.PACK PO (08:14)
[2024-07-13] MEDS: Albuterol/Iprat 2.5/0.5MG 3 ML AMPUL.NEB INHALE ×2 (10:59→20:03)
--- NOTE | 2024-07-13 11:59 | P.PNIM_ITS ---
Subjective Subjective Date of Service: 07/13/24 Interval History: over last 24h has used 2 mg IV hydromorphone and 15 mg PO oxycodone in addition to basal MSSR 75 mg tid in PO morphine equivalents, this is 40 mg + 22.5 mg in addition to basal 225 mg no dyspnea Review of Systems Review of Systems: Yes all other systems are reviewed and are negative Physical Exam Vital Signs: Vital Signs: Last Vital Signs Temp 97.3 F 07/13/24 07:31 Pulse 93 07/13/24 11:02 Resp 18 07/13/24 11:02 BP 129/69 07/13/24 07:31 Pulse Ox 96 07/13/24 07:31 O2 Del Method Room Air 07/13/24 07:31 O2 Flow Rate 2 07/11/24 19:10 BMI result Body Mass Index 26.6 Gen: in no acute distress HEENT: sclera anicteric, moist mucus membranes Neck: supple Lungs: clear to auscultation bilaterally Heart: regular rate and rhythm, no murmurs Abd: soft, non-tender, non-distended Ext: no edema Skin: warm/well-perfused Neuro: alert and oriented x3, no focal findings Psych: appropriate affect Objective Data Active Medications Acetaminophen (Acetaminophen 325 Mg Tablet) 650 mg PO Q6H PRN PRN Reason: Fever Albuterol Sulfate (Albuterol Sulfate 90 Mcg 8 Gm Inhaler) 2 puff INHALE RQ4H PRN PRN Reason: sob Last Admin: 07/08/24 20:12 Dose: 2 puff Documented By: KEVIN Albuterol/Ipratropium (Albuterol/Iprat 2.5/0.5mg 3 Ml Ampul.Neb) 3 ml INHALE Q4H PRN PRN Reason: Wheezing Last Admin: 07/13/24 10:59 Dose: 3 ml Documented By: BRESMARIE Bisacodyl (Bisacodyl 10 Mg Supp.Rect) 10 mg [place] BEDTIME PRN PRN Reason: Constipation Dexamethasone (Dexamethasone 4 Mg Tablet) 4 mg PO BIDWM [facility] Last Admin: 07/13/24 08:13 Dose: 4 mg Documented By: DARCI Docusate Sodium (Docusate Sodium 100 Mg Capsule) 100 mg PO BID [facility] Last Admin: 07/13/24 08:13 Dose: 100 mg Documented By: DARCI Haloperidol (Haloperidol 1 Mg Tablet) 1 mg PO BID PRN PRN Reason: Anxiety/Restlessness Lactulose (Lactulose 20 Gm/30 Ml Solution) 20 gm PO DAILY PRN PRN Reason: Constipation Morphine Sulfate (Morphine Sulfate Er 30 Mg Tablet.Er) 60 mg PO TID [facility] Last Admin: 07/13/24 08:13 Dose: 60 mg Documented By: DARCI Ondansetron HCl (Ondansetron Hcl 4 Mg/2 Ml Vial) 4 mg IVPUSH Q8H PRN PRN Reason: Nausea Polyethylene Glycol (Polyethylene Glycol 3350 17 Gm Powd.Pack) 17 gm PO DAILY [facility] Last Admin: 07/13/24 08:14 Dose: 17 gm Documented By: DARCI Senna (Sennosides 8.6 Mg Tablet) 17.2 mg PO BEDTIME PRN PRN Reason: Constipation Trazodone HCl (Trazodone Hcl 100 Mg Tablet) 100 mg PO BEDTIME PRN PRN Reason: sleep Last Admin: 07/12/24 22:27 Dose: 100 mg Documented By: ALEJANDRA Assessment and Plan (1) Metastatic cancer: Status: Acute (2) Bladder carcinoma: Status: Acute Plan d11 for 74yo M with metastatic bladder CA, CKD3, HTN, mood disorder, asthma, 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 admitted under [facility] for uncontrolled pain metastatic bladder CA with CA-associated pain - increase MSSR from 75 to 90 mg tid, continue oxycodone 15mg q4h prn, d/c IV hydromorphone; continue dexamethasone - continue lorazepam, haloperidol, trazodone prn HTN - discontinued amlodipine as it is not palliative VTE ppx - no heparin as it is not palliative dispo - plan eventual discharge to hospice facility as pt cannot take care of self In my clinical judgment, the patient requires continued inpatient hospitalization for the following reasons: placement Total time managing care of this patient today: 35 minutes. Quality Stroke Does the patient have a stroke diagnosis?: No VTE Prior VTE?: No VTE Risk Level:: Medical - moderate - high VTE Device Contraindication: Treatment Not Indicated VTE Drug Contraindication: Treatment Not Indicated
--- NOTE | 2024-07-13 13:47 | PC.NURSE ---
Unable to have urostomy stick to patients skin. Ostomy nurse paged to assist.
--- NOTE | 2024-07-13 14:36 | HO.OSTOMY ---
Ostomy Consult: Initial 74yr old?Male admitted to [facility] [place] on 07/03/24 15:30 - See progress notes and H&P for detailed history.?Ostomy consult placed for Urostomy with leaking and difficult to pouch stoma.? Patient agreeable to assessment and photo documentation.? Patient is alert and awake pleasant and making polite conversation at the time of my consult. Patient is known to this rfp writer from previous consultations. Patient is known to use a Convex pouch normally as pouch adherence difficult due to it being with in his crease of his abdomen. He is agreeable to a pouch change into Coloplast Convex pouch # [id number] (only available from inpt wound care nurse). The creases on either side at 3 and 9 o'clock were filled with Brava Barrier Strip Paste (Storeroom#[id number]) including his umbilicus as this was a source of leaking when assessed. Pouch cut to 25MM oval. Pouch completed with Coloplast Elastic C strips to hold in place and a Brava Belt. (These are also only available from inpt wound care nurse). Please reuse belt this is not a onetime use item. 07/13/24 Stoma Step by Step Instructions: Lay patient flat to apply pouch - he has to many creases to bit in another position and get a good seal. Remove pouch every 3 days. Change sooner if you notice any leaking. ?Do not reinforce with tape. Clean skin around stoma with warm water and soft cloth. ?Avoid using soaps or lotions. ?Do not use Adhesive remover. *Soaps can contain aloes/lanolins/extracts which leave film on skin that will interfere with pouch adherence Pat skin dry. Prepare products; Cut ostomy pouch approximately 25MM round - Use Templates left at bedside, Coloplast Convex pouch [id number] (Special order). Pat skin dry again the next part must be done fast. Fill the 3 and 9 o'clock creases with Brava Barrier Strip Paste and the umbilicus as well. Remove adhesive paper backing from back of pouch wafer apply Gentle Warm pressure to seal the wafer to his skin. ? Complete pouch change with application of [place] Elastic C strips to allow for added adherence. ?Complete with belt application - pt instructed to wear the belt to for added pressure to correct the way the stoma faces. ? Supplies needed 3 and 9 o'clock area filled with brave strip paste [place] Elastic C strips Pouch in place with belt Stoma - red moist round and above skin level but with in skin fold - needs convexity. Peristomal skin intact. Coloplast barrier ring used along with convex pouch 11241 and curved barrier strips to seal and belt. He was agreeable to these steps. Applied without complications. Of note while changing spied linen on bed sacrum noted for Evidence of previous full thickness tissue injury noted. Tissue remains intact at this time. Preventative measure in place, Q2hr turns, Off load with pillows, barrier cream to be applied and GRAHAM pump on bed. 07/13/24 Sacrum
--- NOTE | 2024-07-13 14:52 | MHC.CM.PN ---
Clinical updates have been sent to facilities. No bed offers received. Spoke with [facility] AYANNA, Meena Ga. She plans to touch base with Rut Priest Director of [facility] today. She will check on bed availability. CM will continue to follow.
[2024-07-13] MEDS: Morphine Sulfate ER 30 MG TABLET.ER PO ×2 (14:58→20:44)
--- NOTE | 2024-07-13 16:55 | PC.NURSE ---
Pt urosotomy was leaking and I charted the leak as incontinence.
[2024-07-13] MEDS: traZODone HCL 100 MG TABLET PO (20:43)
[2024-07-14] MEDS: oxyCODONE HCl Immed Release 15 MG TABLET PO ×5 (02:18→22:21)
--- NOTE | 2024-07-14 04:46 | PC.NURSE ---
Pt's IV leaking, pt refused a new IV. MD Macias made aware of the situation. No need for new IV now, per MD Macias.
[2024-07-14 07:47] VITALS: BP 152/78; PULSE 83; RESP 18; TEMP 36.2; O2SAT 97
[2024-07-14] MEDS: Morphine Sulfate ER 30 MG TABLET.ER PO ×3 (07:56→20:10)
[2024-07-14] MEDS: Morphine Sulfate ER 30 MG TABLET.ER 60 MG PO ×3 (07:57→20:10)
[2024-07-14] MEDS: Docusate Sodium 100 MG CAPSULE PO ×2 (07:57→20:10)
[2024-07-14] MEDS: dexAMETHasone 4 MG TABLET PO ×2 (07:57→16:01)
[2024-07-14] MEDS: polyethylene glycoL 3350 17 GM POWD.PACK PO (07:58)
--- NOTE | 2024-07-14 11:21 | HO.WOUND ---
Ostomy Consult: Follow up 74yr old?[place] [facility] [place] 15:30 - See progress notes and H&P for detailed history.?Ostomy consult follow up for Urostomy with leaking and difficult to pouch stoma.? Todays pouch assessment reveals it is intact and no leaking noted. Belt in place. Additional supplies delivered to bedside at the bedside the patient has enough for two pouch changes. The stoma template was labeled and left at bedside table along with written and printed step by step pouch instructions tapes to wipe board in room. Will discuss with case mgt patient admission time frame as we will need to order more supplies if he is set to be here for a period of time. Information from last assessment: Patient agreeable to assessment and photo documentation.? Patient is alert and awake pleasant and making polite conversation at the time of my consult. Patient is known to this advertising copy writer from previous consultations. Patient is known to use a Convex pouch normally as pouch adherence difficult due to it being with in his crease of his abdomen. He is agreeable to a pouch change into Coloplast Convex pouch # [id number] (only available from inpt wound care nurse). The creases on either side at 3 and 9 o'clock were filled with Brava Barrier Strip Paste (Storeroom#[id number]) including his umbilicus as this was a source of leaking when assessed. Pouch cut to 25MM oval. Pouch completed with Coloplast Elastic C strips to hold in place and a Brava Belt. (These are also only available from inpt wound care nurse). Please reuse belt this is not a onetime use item. 07/13/24 Stoma Step by Step Instructions: Lay patient flat to apply pouch - he has to many creases to bit in another position and get a good seal. Remove pouch every 3 days. Change sooner if you notice any leaking. ?Do not reinforce with tape. Clean skin around stoma with warm water and soft cloth. ?Avoid using soaps or lotions. ?Do not use Adhesive remover. *Soaps can contain aloes/lanolins/extracts which leave film on skin that will interfere with pouch adherence Pat skin dry. Prepare products; Cut ostomy pouch approximately 25MM round - Use Templates left at bedside, Coloplast Convex pouch [id number] (Special order). Pat skin dry again the next part must be done fast. Fill the 3 and 9 o'clock creases with Brava Barrier Strip Paste and the umbilicus as well. Remove adhesive paper backing from back of pouch wafer apply Gentle Warm pressure to seal the wafer to his skin. ? Complete pouch change with application of [place] Elastic C strips to allow for added adherence. ?Complete with belt application - pt instructed to wear the belt to for added pressure to correct the way the stoma faces. ? Supplies needed 3 and 9 o'clock area filled with brave strip paste [place] Elastic C strips Pouch in place with belt Stoma - red moist round and above skin level but with in skin fold - needs convexity. Peristomal skin intact. Coloplast barrier ring used along with convex pouch [id number] and curved barrier strips to seal and belt. He was agreeable to these steps. Applied without complications. Of note while changing spied linen on bed sacrum noted for Evidence of previous full thickness tissue injury noted. Tissue remains intact at this time. Preventative measure in place, Q2hr turns, Off load with pillows, barrier cream to be applied and GRAHAM pump on bed. 07/13/24 Sacrum
--- NOTE | 2024-07-14 11:28 | HO.PM.IMPN ---
Subjective Subjective Date of Service: 07/14/24 Interval History: pain controlled no dyspnea Review of Systems Review of Systems: Yes all other systems are reviewed and are negative Physical Exam Vital Signs: Vital Signs: Last Vital Signs Temp 97.1 F 07/14/24 07:47 Pulse 83 07/14/24 07:47 Resp 18 07/14/24 07:47 BP 152/78 H 07/14/24 07:47 Pulse Ox 97 07/14/24 07:47 O2 Del Method Room Air 07/14/24 07:47 O2 Flow Rate 2 07/11/24 19:10 BMI result Body Mass Index 26.6 Gen: in no acute distress HEENT: sclera anicteric, moist mucus membranes Neck: supple Lungs: clear to auscultation bilaterally Heart: regular rate and rhythm, no murmurs Abd: soft, non-tender, non-distended Ext: no edema Skin: warm/well-perfused Neuro: alert and oriented x3, no focal findings Psych: appropriate affect Objective Data Active Medications Acetaminophen (Acetaminophen 325 Mg Tablet) 650 mg PO Q6H PRN PRN Reason: Fever Albuterol Sulfate (Albuterol Sulfate 90 Mcg 8 Gm Inhaler) 2 puff INHALE RQ4H PRN PRN Reason: sob Last Admin: 07/08/24 20:12 Dose: 2 puff Documented By: KEVIN Albuterol/Ipratropium (Albuterol/Iprat 2.5/0.5mg 3 Ml Ampul.Neb) 3 ml INHALE Q4H PRN PRN Reason: Wheezing Last Admin: 07/13/24 20:03 Dose: 3 ml Documented By: MINH Bisacodyl (Bisacodyl 10 Mg Supp.Rect) 10 mg MD BEDTIME PRN PRN Reason: Constipation Dexamethasone (Dexamethasone 4 Mg Tablet) 4 mg PO BIDWM [facility] Last Admin: 07/14/24 07:57 Dose: 4 mg Documented By: MARISA Docusate Sodium (Docusate Sodium 100 Mg Capsule) 100 mg PO BID [facility] Last Admin: 07/14/24 07:57 Dose: 100 mg Documented By: MARISA Haloperidol (Haloperidol 1 Mg Tablet) 1 mg PO BID PRN PRN Reason: Anxiety/Restlessness Lactulose (Lactulose 20 Gm/30 Ml Solution) 20 gm PO DAILY PRN PRN Reason: Constipation Morphine Sulfate (Morphine Sulfate Er 30 Mg Tablet.Er) 60 mg PO TID [facility] Last Admin: 07/14/24 07:57 Dose: 60 mg Documented By: MARISA Morphine Sulfate (Morphine Sulfate Er 30 Mg Tablet.Er) 30 mg PO TID [facility] Last Admin: 07/14/24 07:56 Dose: 30 mg Documented By: MARISA Ondansetron HCl (Ondansetron Hcl 4 Mg/2 Ml Vial) 4 mg IVPUSH Q8H PRN PRN Reason: Nausea Oxycodone HCl (Oxycodone Hcl Immed Release 15 Mg Tablet) 15 mg PO Q4H PRN PRN Reason: Breakthrough Pain Last Admin: 07/14/24 07:57 Dose: 15 mg Documented By: MARISA Polyethylene Glycol (Polyethylene Glycol 3350 17 Gm Powd.Pack) 17 gm PO DAILY [facility] Last Admin: 07/14/24 07:58 Dose: 17 gm Documented By: MARISA Senna (Sennosides 8.6 Mg Tablet) 17.2 mg PO BEDTIME PRN PRN Reason: Constipation Trazodone HCl (Trazodone Hcl 100 Mg Tablet) 100 mg PO BEDTIME PRN PRN Reason: sleep Last Admin: 07/13/24 20:43 Dose: 100 mg Documented By: MARI Assessment and Plan (1) Metastatic cancer: Status: Acute (2) Bladder carcinoma: Status: Acute Plan d12 for 74yo M with metastatic bladder CA, CKD3, HTN, mood disorder, asthma, 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 for uncontrolled pain metastatic bladder CA with CA-associated pain - increased MSSR from 75 to 90 mg tid, continue oxycodone 15mg q4h prn; continue dexamethasone - continue lorazepam, haloperidol, trazodone prn VTE ppx - no heparin as it is not palliative dispo - plan discharge to hospice facility as pt cannot take care of self In my clinical judgment, the patient requires continued inpatient hospitalization for the following reasons: placement Total time managing care of this patient today: 35 minutes. Quality Stroke Does the patient have a stroke diagnosis?: No VTE Prior VTE?: No VTE Risk Level:: Medical - moderate - high VTE Device Contraindication: Treatment Not Indicated VTE Drug Contraindication: Treatment Not Indicated
[2024-07-14 15:51] VITALS: BP 134/75; PULSE 85; RESP 12; TEMP 36.1; O2SAT 96
[2024-07-14 17:21] VITALS: PULSE 85; RESP 12; O2SAT 95
[2024-07-14] MEDS: Albuterol/Iprat 2.5/0.5MG 3 ML AMPUL.NEB INHALE (17:21)
[2024-07-14 19:37] VITALS: BP 151/71; PULSE 94; RESP 18; TEMP 36.6; O2SAT 96
[2024-07-14] MEDS: traZODone HCL 100 MG TABLET PO (22:21)
[2024-07-15] MEDS: oxyCODONE HCl Immed Release 15 MG TABLET PO ×3 (04:37→12:27)
[2024-07-15] MEDS: HYDROmorphone HCl 2 MG TABLET 1 MG PO (05:28)
[2024-07-15 07:47] VITALS: BP 172/82; PULSE 80; RESP 16; TEMP 36.2; O2SAT 94
[2024-07-15] MEDS: Docusate Sodium 100 MG CAPSULE PO ×2 (08:26→20:58)
[2024-07-15] MEDS: Morphine Sulfate ER 15 MG TABLET.ER PO ×3 (08:26→20:59)
[2024-07-15] MEDS: dexAMETHasone 4 MG TABLET PO ×2 (08:26→16:36)
[2024-07-15] MEDS: polyethylene glycoL 3350 17 GM POWD.PACK PO (08:26)
[2024-07-15] MEDS: Morphine Sulfate ER 30 MG TABLET.ER 90 MG PO ×3 (08:26→20:59)
--- NOTE | 2024-07-15 09:41 | P.PNIM_ITS ---
Subjective Subjective Date of Service: 07/15/24 Interval History: got 5 doses of oxycodone 15 mg plus 1 dose of IV hydromorphone 1 mg in last 24h. Equivalent in PO morphine is 132.5 mg no dyspnea Review of Systems Review of Systems: Yes all other systems are reviewed and are negative Physical Exam Vital Signs: Vital Signs: Last Vital Signs Temp 97.1 F 07/15/24 07:47 Pulse 80 07/15/24 07:47 Resp 16 07/15/24 07:47 BP 172/82 H 07/15/24 07:47 Pulse Ox 94 07/15/24 07:47 O2 Del Method Room Air 07/15/24 07:47 O2 Flow Rate 2 07/11/24 19:10 BMI result Body Mass Index 26.6 Gen: in no acute distress but chronically ill-appearing HEENT: sclera anicteric, moist mucus membranes Neck: supple Lungs: clear to auscultation bilaterally Heart: regular rate and rhythm, no murmurs Abd: soft, non-tender, non-distended Ext: no edema Skin: warm/well-perfused Neuro: alert and oriented x3, no focal findings Psych: appropriate affect Objective Data Active Medications Acetaminophen (Acetaminophen 325 Mg Tablet) 650 mg PO Q6H PRN PRN Reason: Fever Albuterol Sulfate (Albuterol Sulfate 90 Mcg 8 Gm Inhaler) 2 puff INHALE RQ4H PRN PRN Reason: sob Last Admin: 07/08/24 20:12 Dose: 2 puff Documented By: KEVIN Bisacodyl (Bisacodyl 10 Mg Supp.Rect) 10 mg [place] BEDTIME PRN PRN Reason: Constipation Dexamethasone (Dexamethasone 4 Mg Tablet) 4 mg PO BIDWM [facility] Last Admin: 07/15/24 08:26 Dose: 4 mg Documented By: DARCI Docusate Sodium (Docusate Sodium 100 Mg Capsule) 100 mg PO BID [facility] Last Admin: 07/15/24 08:26 Dose: 100 mg Documented By: DARCI Haloperidol (Haloperidol 1 Mg Tablet) 1 mg PO BID PRN PRN Reason: Anxiety/Restlessness Lactulose (Lactulose 20 Gm/30 Ml Solution) 20 gm PO DAILY PRN PRN Reason: Constipation Morphine Sulfate (Morphine Sulfate Er 30 Mg Tablet.Er) 90 mg PO TID [facility] Last Admin: 07/15/24 08:26 Dose: 90 mg Documented By: DARCI Morphine Sulfate (Morphine Sulfate Er 15 Mg Tablet.Er) 15 mg PO TID [facility] Last Admin: 07/15/24 08:26 Dose: 15 mg Documented By: DARCI Ondansetron HCl (Ondansetron Hcl 4 Mg/2 Ml Vial) 4 mg IVPUSH Q8H PRN PRN Reason: Nausea Oxycodone HCl (Oxycodone Hcl Immed Release 15 Mg Tablet) 15 mg PO Q4H PRN PRN Reason: Breakthrough Pain Last Admin: 07/15/24 08:26 Dose: 15 mg Documented By: DARCI Polyethylene Glycol (Polyethylene Glycol 3350 17 Gm Powd.Pack) 17 gm PO DAILY [facility] Last Admin: 07/15/24 08:26 Dose: 17 gm Documented By: DARCI Senna (Sennosides 8.6 Mg Tablet) 17.2 mg PO BEDTIME PRN PRN Reason: Constipation Trazodone HCl (Trazodone Hcl 100 Mg Tablet) 100 mg PO BEDTIME PRN PRN Reason: sleep Last Admin: 07/14/24 22:21 Dose: 100 mg Documented By: ELIZABETH Assessment and Plan (1) Metastatic cancer: Status: Acute (2) Bladder carcinoma: Status: Acute Plan d13 for 74yo M with metastatic bladder CA, CKD3, HTN, mood disorder, asthma, 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 admitted under [facility] for uncontrolled pain metastatic bladder CA with CA-associated pain - increase MSSR from 90 to 105 mg tid, continue oxycodone 15mg q4h prn; continue dexamethasone [palliative per Dr Amador from [facility]] - continue lorazepam, haloperidol, trazodone prn VTE ppx - no heparin as it is not palliative dispo - plan discharge to hospice facility as pt cannot take care of self In my clinical judgment, the patient requires continued inpatient hospitalization for the following reasons: placement Total time managing care of this patient today: 35 minutes. Quality Stroke Does the patient have a stroke diagnosis?: No VTE Prior VTE?: No VTE Risk Level:: Medical - moderate - high VTE Device Contraindication: Treatment Not Indicated VTE Drug Contraindication: Treatment Not Indicated
--- NOTE | 2024-07-15 11:32 | MHC.CM.PN ---
Met with [facility] match up worker and Hospitalist. Pain management and placement were reviewed. [facility] vs Hospice in a SNF. [facility] pending. The application has been sent for SNFs to review.
[2024-07-15 15:10] VITALS: PULSE 80; RESP 16; O2SAT 96
[2024-07-15] MEDS: Albuterol Sulfate 90 MCG 8 GM INHALER 2 PUFF INHALE (15:10)
[2024-07-15 19:08] VITALS: BP 147/66; PULSE 97; RESP 18; TEMP 36.3; O2SAT 96
[2024-07-15] MEDS: traZODone HCL 100 MG TABLET PO (21:03)
[2024-07-16 07:46] VITALS: BP 150/70; PULSE 83; RESP 14; TEMP 36.4; O2SAT 98
[2024-07-16] MEDS: Docusate Sodium 100 MG CAPSULE PO ×2 (08:07→20:15)
[2024-07-16] MEDS: dexAMETHasone 4 MG TABLET PO ×2 (08:07→16:57)
[2024-07-16] MEDS: Morphine Sulfate ER 15 MG TABLET.ER PO ×3 (08:07→20:16)
[2024-07-16] MEDS: polyethylene glycoL 3350 17 GM POWD.PACK PO (08:07)
[2024-07-16] MEDS: Morphine Sulfate ER 30 MG TABLET.ER 90 MG PO ×3 (08:07→20:15)
--- NOTE | 2024-07-16 11:08 | P.PNIM_ITS ---
Subjective Subjective Date of Service: 07/16/24 Interval History: 2 doses oxycodone in last 24h; complains it doesn't work Review of Systems Review of Systems: Yes all other systems are reviewed and are negative Physical Exam Vital Signs: Vital Signs: Last Vital Signs Temp 97.6 F 07/16/24 07:46 Pulse 83 07/16/24 07:46 Resp 14 07/16/24 07:46 BP 150/70 H 07/16/24 07:46 Pulse Ox 98 07/16/24 07:46 O2 Del Method Room Air 07/16/24 07:46 O2 Flow Rate 2 07/11/24 19:10 BMI result Body Mass Index 26.6 Gen: in no acute distress but chronically ill-appearing HEENT: sclera anicteric, moist mucus membranes Neck: supple Lungs: clear to auscultation bilaterally Heart: regular rate and rhythm, no murmurs Abd: soft, non-tender, non-distended Ext: no edema Skin: warm/well-perfused Neuro: alert and oriented x3, no focal findings Psych: appropriate affect Objective Data Active Medications Acetaminophen (Acetaminophen 325 Mg Tablet) 650 mg PO Q6H PRN PRN Reason: Fever Albuterol Sulfate (Albuterol Sulfate (0.083%) 2.5 Mg/3 Ml Vial.Neb) 2.5 mg IN CRAMER Q4H PRN PRN Reason: Shortness of Breath/Wheezing Bisacodyl (Bisacodyl 10 Mg Supp.Rect) 10 mg ID BEDTIME PRN PRN Reason: Constipation Dexamethasone (Dexamethasone 4 Mg Tablet) 4 mg PO BIDWM [facility] Last Admin: 07/16/24 08:07 Dose: 4 mg Documented By: RAE Docusate Sodium (Docusate Sodium 100 Mg Capsule) 100 mg PO BID [facility] Last Admin: 07/16/24 08:07 Dose: 100 mg Documented By: RAE Haloperidol (Haloperidol 1 Mg Tablet) 1 mg PO BID PRN PRN Reason: Anxiety/Restlessness Lactulose (Lactulose 20 Gm/30 Ml Solution) 20 gm PO DAILY PRN PRN Reason: Constipation Morphine Sulfate (Morphine Sulfate Er 30 Mg Tablet.Er) 90 mg PO TID [facility] Last Admin: 07/16/24 08:07 Dose: 90 mg Documented By: RAE Morphine Sulfate (Morphine Sulfate Er 15 Mg Tablet.Er) 15 mg PO TID [facility] Last Admin: 07/16/24 08:07 Dose: 15 mg Documented By: RAE Morphine Sulfate (Morphine Sulfate Oral Ericka 10 Mg/5 Ml Solution) 15 mg SUBLINGUAL Q4H PRN PRN Reason: pain,severe Ondansetron HCl (Ondansetron Hcl 4 Mg/2 Ml Vial) 4 mg IVPUSH Q8H PRN PRN Reason: Nausea Polyethylene Glycol (Polyethylene Glycol 3350 17 Gm Powd.Pack) 17 gm PO DAILY [facility] Last Admin: 07/16/24 08:07 Dose: 17 gm Documented By: RAE Senna (Sennosides 8.6 Mg Tablet) 17.2 mg PO BEDTIME PRN PRN Reason: Constipation Trazodone HCl (Trazodone Hcl 100 Mg Tablet) 100 mg PO BEDTIME PRN PRN Reason: sleep Last Admin: 07/15/24 21:03 Dose: 100 mg Documented By: DEENA Assessment and Plan (1) Metastatic cancer: Status: Acute (2) Bladder carcinoma: Status: Acute Plan d14 for 74yo M with metastatic bladder CA, CKD3, HTN, mood disorder, asthma, 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 admitted under [facility] H[facility] for uncontrolled pain metastatic bladder CA with CA-associated pain - increased MSSR from to 105 mg tid yesterday, change oxycodone to morphine liquid [immediate-release] 20 mg q4h prn and titrate upwards as needed; continue dexamethasone [palliative per Dr Amador from Heme-Onc] - continue lorazepam, haloperidol, trazodone prn VTE ppx - no heparin as it is not palliative dispo - plan discharge to hospice facility as pt cannot take care of self In my clinical judgment, the patient requires continued inpatient hospitalization for the following reasons: placement [waiting for bed at [facility]] Total time managing care of this patient today: 35 minutes. Quality Stroke Does the patient have a stroke diagnosis?: No VTE Prior VTE?: No VTE Risk Level:: Medical - moderate - high VTE Device Contraindication: Treatment Not Indicated VTE Drug Contraindication: Treatment Not Indicated
[2024-07-16] MEDS: Albuterol Sulfate (0.083%) 2.5 MG/3 ML VIAL.NEB INHALE (11:22)
[2024-07-16 11:28] VITALS: PULSE 82; RESP 17; O2SAT 98
--- NOTE | 2024-07-16 12:56 | P.DS_ITS ---
DS: Providers Provider Date of Service: 07/25/24 Date of admission: 07/03/24 15:30 Date of discharge: 07/25/24 Primary care physician: Nelson Pineda MD Consults: 07/14/24 11:30 Consult to Ostomy Care Routine DS: Diagnosis Discharge Diagnosis (1) Metastatic cancer: Status: Acute (2) Bladder carcinoma: Status: Acute (3) Cancer associated pain: Status: Acute DS: Summary Hospital Course Hospital Course: From the history and physical by the admitting hospitalist, Diogenes Costa MD, 07/03/24: This is a 74-year-old gentleman with past medical history significant for metastatic bladder cancer, chronic kidney disease stage 3, hypertension, history of asthma, mood disorder, 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 Patient denies recent sedated fever chills, no lightheadedness, no dizziness, no nausea, no vomiting, no abdominal pain or diarrhea. 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 Initially pain was managed with oral morphine and IV hydromorphone with plan for discharge to outpatient hospice facility. However, the patient declined to the point where he was placed on OIL SEPARATOR measures in the hospital to best manage his symptoms. He was treated with IV hydromorphone and without apparent distress on 07/25/24 at 20:55. Time Attestation Discharge Coordination Time (in mins): 3- Quality: Safe Use of Opioids Does Pt have an Active Cancer Diagnosis on the Problem List?: Yes Opioid Measure Date for CMS Report: 06/27/24 Opioid Measure Time for [facility] Report: 13:32 Quality: Stroke Does the patient have a stroke diagnosis?: No Physical Exam Vital Signs: Vital Signs: Last Vital Signs Temp 97.6 F 07/16/24 07:46 Pulse 82 07/16/24 11:28 Resp 17 07/16/24 11:28 BP 150/70 H 07/16/24 07:46 Pulse Ox 98 07/16/24 07:46 O2 Del Method Room Air 07/16/24 07:46 O2 Flow Rate 2 07/11/24 19:10 BMI result Body Mass Index 26.6 Discharge Plan Discharge Date/Time: 07/25/24 20:55 Patient Disposition: Discharge Diagnosis: Referrals: Nelson Pineda MD [Primary Care Provider] - 1 Week Discharge Medications: No Action (DME) Visi-Flow Sheet Metal Apprentice-Stoma Cone Misc See Rx Instructions .Route Qty: 1 5RF Rx Instructions: As directed (DME) SHOWER CHAIR See Rx Instructions .Route .MEDSUPPLY Qty: 1 0RF Rx Instructions: As directed trazodone 100 mg tablet 100 mg PO BEDTIME PRN (Reason: sleep) Qty: 30 2RF sertraline 50 mg tablet 50 mg PO DAILY 30 Days Qty: 30 2RF acetaminophen 325 mg Tablet 650 mg PO Q6H PRN (Reason: fever) Qty: 30 0RF albuterol sulfate [Ventolin HFA] 90 mcg/actuation Hfa Aerosol Inhaler 2 puff inhalation RQ4H PRN (Reason: sob) Qty: 1 0RF bisacodyl [Gentle Laxative (bisacodyl)] 10 mg Suppository 10 mg ME BEDTIME PRN (Reason: Constipation) Qty: 30 0RF docusate sodium 100 mg Capsule 100 mg PO BID Qty: 60 0RF sennosides [Senna Lax] 8.6 mg Tablet 17.2 mg PO BEDTIME PRN (Reason: Constipation) Qty: 30 0RF lorazepam 0.5 mg tablet 0.5 mg PO Q6H PRN (Reason: anxiety/restlessness) 4 Days Qty: 16 0RF morphine concentrate 100 mg/5 mL (20 mg/mL) solution 30 mg PO Q1H PRN (Reason: pain or dyspnea) morphine [MS Contin] 60 mg tablet extended release 120 mg PO BID dexamethasone 4 mg Tablet 8 mg PO DAILY lactulose 20 gram/30 mL Solution 30 ml PO DAILY PRN (Reason: Constipation) haloperidol 1 mg tablet 1 mg PO BID PRN (Reason: Anxiety/Restlessness) ondansetron 4 mg tablet,disintegrating 4 mg translingual Q8H PRN (Reason: Nausea And Vomiting) Print Language: Sami Discharge Date/Time: 07/25/24 22:45
[2024-07-16] MEDS: traZODone HCL 100 MG TABLET PO (20:16)
--- NOTE | 2024-07-16 23:33 | PC.NURSE ---
2020-Patient requested to have his night time medications at this time for pain management and sleep. Medications given as requested, pt repositioned, urostomy patent with yellow urine, noted to rest quietly shortly after snack and medications.
[2024-07-17 07:42] VITALS: BP 149/72; PULSE 82; RESP 16; TEMP 36.2; O2SAT 96
[2024-07-17] MEDS: Morphine Sulfate ER 15 MG TABLET.ER PO ×3 (08:42→20:04)
[2024-07-17] MEDS: Morphine Sulfate ER 30 MG TABLET.ER 90 MG PO ×3 (08:42→20:04)
[2024-07-17] MEDS: dexAMETHasone 4 MG TABLET PO ×2 (08:43→16:17)
[2024-07-17] MEDS: polyethylene glycoL 3350 17 GM POWD.PACK PO (08:43)
[2024-07-17] MEDS: Docusate Sodium 100 MG CAPSULE PO ×2 (08:43→20:04)
--- NOTE | 2024-07-17 08:48 | HO.PM.IMPN ---
Subjective Subjective Date of Service: 07/17/24 Interval History: He's reporting 7/10 pain, although he seems comfortable Physical Exam Vital Signs: Vital Signs: Last Vital Signs Temp 97.2 F 07/17/24 07:42 Pulse 82 07/17/24 07:42 Resp 16 07/17/24 07:42 BP 149/72 H 07/17/24 07:42 Pulse Ox 96 07/17/24 07:42 O2 Del Method Room Air 07/17/24 07:42 O2 Flow Rate 2 07/11/24 19:10 BMI result Body Mass Index 26.6 Gen: in no acute distress but chronically ill-appearing HEENT: sclera anicteric, moist mucus membranes Neck: supple Lungs: clear to auscultation bilaterally Heart: regular rate and rhythm, no murmurs Abd: soft, non-tender, non-distended Ext: no edema Skin: warm/well-perfused Neuro: alert and oriented x3, no focal findings Psych: appropriate affect Objective Data Active Medications Acetaminophen (Acetaminophen 325 Mg Tablet) 650 mg PO Q6H PRN PRN Reason: Fever Albuterol Sulfate (Albuterol Sulfate (0.083%) 2.5 Mg/3 Ml Vial.Neb) 2.5 mg INHALE Q4H PRN PRN Reason: Shortness of Breath/Wheezing Last Admin: 07/16/24 11:22 Dose: 2.5 mg Documented By: KRISTINE Bisacodyl (Bisacodyl 10 Mg Supp.Rect) 10 mg [place] BEDTIME PRN PRN Reason: Constipation Dexamethasone (Dexamethasone 4 Mg Tablet) 4 mg PO BIDWM [facility] Last Admin: 07/17/24 08:43 Dose: 4 mg Documented By: ABDIEL Docusate Sodium (Docusate Sodium 100 Mg Capsule) 100 mg PO BID [facility] Last Admin: 07/17/24 08:43 Dose: 100 mg Documented By: ABDIEL Haloperidol (Haloperidol 1 Mg Tablet) 1 mg PO BID PRN PRN Reason: Anxiety/Restlessness Lactulose (Lactulose 20 Gm/30 Ml Solution) 20 gm PO DAILY PRN PRN Reason: Constipation Morphine Sulfate (Morphine Sulfate Er 30 Mg Tablet.Er) 90 mg PO TID [facility] Last Admin: 07/17/24 08:42 Dose: 90 mg Documented By: ABDIEL Morphine Sulfate (Morphine Sulfate Er 15 Mg Tablet.Er) 15 mg PO TID [facility] Last Admin: 07/17/24 08:42 Dose: 15 mg Documented By: ABDIEL Morphine Sulfate (Morphine Sulfate Oral Ericka 10 Mg/5 Ml Solution) 20 mg SUBLINGUAL Q4H PRN PRN Reason: pain,severe Ondansetron HCl (Ondansetron Hcl 4 Mg/2 Ml Vial) 4 mg IVPUSH Q8H PRN PRN Reason: Nausea Polyethylene Glycol (Polyethylene Glycol 3350 17 Gm Powd.Pack) 17 gm PO DAILY [facility] Last Admin: 07/17/24 08:43 Dose: 17 gm Documented By: ABDIEL Senna (Sennosides 8.6 Mg Tablet) 17.2 mg PO BEDTIME PRN PRN Reason: Constipation Trazodone HCl (Trazodone Hcl 100 Mg Tablet) 100 mg PO BEDTIME PRN PRN Reason: sleep Last Admin: 07/16/24 20:16 Dose: 100 mg Documented By: DEENA Assessment and Plan (1) Metastatic cancer: Status: Acute (2) Bladder carcinoma: Status: Acute Plan d15 for 74yo M with metastatic bladder CA, CKD3, HTN, mood disorder, asthma, 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 admitted under [facility] for uncontrolled pain metastatic bladder CA with CA-associated pain, reports 01/07 pain - continue MSSR 105 tid, morphine liquid [immediate-release] 20 mg q4h prn and titrate upwards as needed; continue dexamethasone [palliative per Dr Amador from Heme-Onc] - continue lorazepam, haloperidol, trazodone prn VTE ppx - no heparin as it is not palliative dispo - plan discharge to hospice facility as pt cannot take care of self In my clinical judgment, the patient requires continued inpatient hospitalization for the following reasons: placement [waiting for bed at [facility]] Total time managing care of this patient today: 35 minutes. Quality Stroke Does the patient have a stroke diagnosis?: No VTE Prior VTE?: No VTE Risk Level:: Medical - moderate - high VTE Device Contraindication: Treatment Not Indicated VTE Drug Contraindication: Treatment Not Indicated
[2024-07-17 12:38] VITALS: PULSE 82; RESP 16; O2SAT 97
[2024-07-17] MEDS: Albuterol Sulfate (0.083%) 2.5 MG/3 ML VIAL.NEB INHALE (12:38)
[2024-07-17 15:40] VITALS: BP 139/67; PULSE 90; RESP 18; TEMP 36.3; O2SAT 96
[2024-07-17 19:35] VITALS: BP 170/77; PULSE 96; RESP 18; TEMP 36.5; O2SAT 95
[2024-07-17] MEDS: traZODone HCL 100 MG TABLET PO (20:08)
[2024-07-17 21:08] VITALS: RESP 18
[2024-07-18] VITALS (8 sets, daily range): BP systolic 158–169; BP diastolic 72–74; PULSE 80–94; RESP 14–20; TEMP 36.2–36.6; O2SAT 95–96
[2024-07-18] MEDS: Morphine Sulfate Oral Sol 10 MG/5 ML SOLUTION 20 MG SUBLINGUAL ×4 (05:23→16:57)
[2024-07-18] MEDS: dexAMETHasone 4 MG TABLET PO ×2 (08:31→16:58)
[2024-07-18] MEDS: Morphine Sulfate ER 15 MG TABLET.ER PO (08:31)
[2024-07-18] MEDS: Docusate Sodium 100 MG CAPSULE PO ×2 (08:31→20:39)
[2024-07-18] MEDS: HaloperidoL 1 MG TABLET PO (08:31)
[2024-07-18] MEDS: Morphine Sulfate ER 30 MG TABLET.ER 90 MG PO ×3 (08:31→20:39)
[2024-07-18] MEDS: polyethylene glycoL 3350 17 GM POWD.PACK PO (08:31)
--- NOTE | 2024-07-18 10:22 | HO.PM.IMPN ---
Subjective Subjective Date of Service: 07/18/24 Interval History: Pain level about the same as yesterday, and doesn't look particulary uncomfortable Physical Exam Vital Signs: Vital Signs: Last Vital Signs Temp 97.1 F 07/18/24 07:21 Pulse 80 07/18/24 07:21 Resp 18 07/18/24 07:21 BP 158/74 H 07/18/24 07:21 Pulse Ox 96 07/18/24 07:21 O2 Del Method Room Air 07/18/24 07:21 O2 Flow Rate 2 07/11/24 19:10 BMI result Body Mass Index 26.6 Gen: in no acute distress but chronically ill-appearing HEENT: sclera anicteric, moist mucus membranes Neck: supple Lungs: clear to auscultation bilaterally Heart: regular rate and rhythm, no murmurs Abd: soft, non-tender, non-distended Ext: no edema Skin: warm/well-perfused Neuro: alert and oriented x3, no focal findings Psych: appropriate affect Objective Data Active Medications Acetaminophen (Acetaminophen 325 Mg Tablet) 650 mg PO Q6H PRN PRN Reason: Fever Albuterol Sulfate (Albuterol Sulfate (0.083%) 2.5 Mg/3 Ml Vial.Neb) 2.5 mg INHALE Q4H PRN PRN Reason: Shortness of Breath/Wheezing Last Admin: 07/17/24 12:38 Dose: 2.5 mg Documented By: THAIS Bisacodyl (Bisacodyl 10 Mg Supp.Rect) 10 mg [place] BEDTIME PRN PRN Reason: Constipation Dexamethasone (Dexamethasone 4 Mg Tablet) 4 mg PO BIDWM [facility] Last Admin: 07/18/24 08:31 Dose: 4 mg Documented By: JAMAICA Docusate Sodium (Docusate Sodium 100 Mg Capsule) 100 mg PO BID [facility] Last Admin: 07/18/24 08:31 Dose: 100 mg Documented By: JAMAICA Haloperidol (Haloperidol 1 Mg Tablet) 1 mg PO BID PRN PRN Reason: Anxiety/Restlessness Last Admin: 07/18/24 08:31 Dose: 1 mg Documented By: JAMAICA Lactulose (Lactulose 20 Gm/30 Ml Solution) 20 gm PO DAILY PRN PRN Reason: Constipation Morphine Sulfate (Morphine Sulfate Er 30 Mg Tablet.Er) 90 mg PO TID [facility] Last Admin: 07/18/24 08:31 Dose: 90 mg Documented By: JAMAICA Morphine Sulfate (Morphine Sulfate Er 15 Mg Tablet.Er) 15 mg PO TID [facility] Last Admin: 07/18/24 08:31 Dose: 15 mg Documented By: JAMAICA Morphine Sulfate (Morphine Sulfate Oral Ericka 10 Mg/5 Ml Solution) 20 mg SUBLINGUAL Q4H PRN PRN Reason: pain,severe Last Admin: 07/18/24 09:21 Dose: 20 mg Documented By: JAMAICA Ondansetron HCl (Ondansetron Hcl 4 Mg/2 Ml Vial) 4 mg IVPUSH Q8H PRN PRN Reason: Nausea Polyethylene Glycol (Polyethylene Glycol 3350 17 Gm Powd.Pack) 17 gm PO DAILY [facility] Last Admin: 07/18/24 08:31 Dose: 17 gm Documented By: JAMAICA Senna (Sennosides 8.6 Mg Tablet) 17.2 mg PO BEDTIME PRN PRN Reason: Constipation Trazodone HCl (Trazodone Hcl 100 Mg Tablet) 100 mg PO BEDTIME PRN PRN Reason: sleep Last Admin: 07/17/24 20:08 Dose: 100 mg Documented By: ALEJANDRA Assessment and Plan (1) Metastatic cancer: Status: Acute (2) Bladder carcinoma: Status: Acute Plan d15 for 74yo M with metastatic bladder CA, CKD3, HTN, mood disorder, asthma, 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 admitted under [facility] for uncontrolled pain metastatic bladder CA with CA-associated pain, reports 7/10 pain - increase MS contin to 110 tid, cont morphine liquid [immediate-release] 25 mg q4h prn and titrate upwards as needed; continue dexamethasone [palliative per Dr Amador from Heme-Onc] - continue lorazepam, haloperidol, trazodone prn VTE ppx - no heparin as it is not palliative dispo - plan discharge to hospice facility as pt cannot take care of self In my clinical judgment, the patient requires continued inpatient hospitalization for the following reasons: placement [waiting for bed at [facility]] Total time managing care of this patient today: 35 minutes. Quality Stroke Does the patient have a stroke diagnosis?: No VTE Prior VTE?: No VTE Risk Level:: Medical - moderate - high VTE Device Contraindication: Treatment Not Indicated VTE Drug Contraindication: Treatment Not Indicated
[2024-07-18] MEDS: Albuterol Sulfate (0.083%) 2.5 MG/3 ML VIAL.NEB INHALE ×2 (11:28→16:10)
[2024-07-18] MEDS: Morphine Sulfate ER 30 MG TABLET.ER PO ×2 (14:52→20:39)
[2024-07-18] MEDS: traZODone HCL 100 MG TABLET PO (20:41)
--- NOTE | 2024-07-19 00:24 | PC.NURSE ---
Addendum entered by Lynette Chase RN 07/19/24 00:42: Pt given prn breathing treatment by RT per request. Pain management/LANDSCAPER education reinforced again by filing writer. Pt then agreeable to prn morphine. Given, effectiveness pending. Original Note: Patient seen on s3. LANDSCAPER. Given scheduled pain meds in the evening per AUG. Pt offered pain meds on mid-shift rounding, declined pain meds at this time though requested breathing treatment. Breathing is even and unlabored without distress. Respiratory notified of pt request for prn treatment. Patient remains in chair with the chair alarm in place and in-room camera for safety measures (pt is refusing to return to bed tonight). Plan of care continues.
[2024-07-19 00:30] VITALS: PULSE 80; RESP 18; O2SAT 95
[2024-07-19] MEDS: Albuterol Sulfate (0.083%) 2.5 MG/3 ML VIAL.NEB INHALE ×2 (00:30→10:21)
[2024-07-19] MEDS: Morphine Sulfate Oral Sol 10 MG/5 ML SOLUTION 20 MG SUBLINGUAL ×4 (00:38→16:28)
[2024-07-19 01:37] VITALS: RESP 18
[2024-07-19 01:38] VITALS: RESP 18
[2024-07-19] MEDS: HaloperidoL 1 MG TABLET PO (03:55)
[2024-07-19] MEDS: LORazepam 1 MG TABLET PO ×2 (05:28→13:07)
[2024-07-19] MEDS: Morphine Sulfate ER 30 MG TABLET.ER 90 MG PO ×3 (08:43→20:10)
[2024-07-19] MEDS: Morphine Sulfate ER 30 MG TABLET.ER PO ×3 (08:44→20:09)
[2024-07-19] MEDS: dexAMETHasone 4 MG TABLET PO ×2 (08:45→16:29)
[2024-07-19] MEDS: polyethylene glycoL 3350 17 GM POWD.PACK PO (08:48)
[2024-07-19] MEDS: Docusate Sodium 100 MG CAPSULE PO ×2 (08:48→20:09)
--- NOTE | 2024-07-19 09:11 | HO.PM.IMPN ---
Subjective Subjective Date of Service: 07/19/24 Interval History: hospice/gip/comfort care patient reporting 8/10 pain this morning Physical Exam Vital Signs: Vital Signs: Last Vital Signs Temp 97.1 F 07/18/24 07:21 Pulse 80 07/19/24 00:30 Resp 18 07/19/24 01:38 BP 158/74 H 07/18/24 07:21 Pulse Ox 96 07/18/24 07:21 O2 Del Method Room Air 07/18/24 07:21 O2 Flow Rate 2 07/11/24 19:10 BMI result Body Mass Index 26.6 No distress, alert, oriented expressing himself Objective Data Active Medications Acetaminophen (Acetaminophen 325 Mg Tablet) 650 mg PO Q6H PRN PRN Reason: Fever Albuterol Sulfate (Albuterol Sulfate (0.083%) 2.5 Mg/3 Ml Vial.Neb) 2.5 mg INHALE Q4H PRN PRN Reason: Shortness of Breath/Wheezing Last Admin: 07/19/24 00:30 Dose: 2.5 mg Documented By: RAQUEL Bisacodyl (Bisacodyl 10 Mg Supp.Rect) 10 mg [place] BEDTIME PRN PRN Reason: Constipation Dexamethasone (Dexamethasone 4 Mg Tablet) 4 mg PO BIDWM [facility] Last Admin: 07/19/24 08:45 Dose: 4 mg Documented By: PRETTY Docusate Sodium (Docusate Sodium 100 Mg Capsule) 100 mg PO BID [facility] Last Admin: 07/19/24 08:48 Dose: 100 mg Documented By: PRETTY Haloperidol (Haloperidol 1 Mg Tablet) 1 mg PO BID PRN PRN Reason: Anxiety/Restlessness Last Admin: 07/19/24 03:55 Dose: 1 mg Documented By: ALEJANDRA Lactulose (Lactulose 20 Gm/30 Ml Solution) 20 gm PO DAILY PRN PRN Reason: Constipation Morphine Sulfate (Morphine Sulfate Er 30 Mg Tablet.Er) 90 mg PO TID [facility] Last Admin: 07/19/24 08:43 Dose: 90 mg Documented By: PRETTY Morphine Sulfate (Morphine Sulfate Oral Ericka 10 Mg/5 Ml Solution) 20 mg SUBLINGUAL Q4H PRN PRN Reason: pain,severe Last Admin: 07/19/24 04:29 Dose: 20 mg Documented By: ALEJANDRA Morphine Sulfate (Morphine Sulfate Er 30 Mg Tablet.Er) 30 mg PO TID [facility] Last Admin: 07/19/24 08:44 Dose: 30 mg Documented By: PRETTY Ondansetron HCl (Ondansetron Hcl 4 Mg/2 Ml Vial) 4 mg IVPUSH Q8H PRN PRN Reason: Nausea Polyethylene Glycol (Polyethylene Glycol 3350 17 Gm Powd.Pack) 17 gm PO DAILY [facility] Last Admin: 07/19/24 08:48 Dose: 17 gm Documented By: PRETTY Senna (Sennosides 8.6 Mg Tablet) 17.2 mg PO BEDTIME PRN PRN Reason: Constipation Trazodone HCl (Trazodone Hcl 100 Mg Tablet) 100 mg PO BEDTIME PRN PRN Reason: sleep Last Admin: 07/18/24 20:41 Dose: 100 mg Documented By: ALEJANDRA Assessment and Plan (1) Metastatic cancer: Status: Acute (2) Bladder carcinoma: Status: Acute Plan d15 for 74yo M with metastatic bladder CA, CKD3, HTN, mood disorder, asthma, 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 admitted under [facility] H[facility]ice for uncontrolled pain metastatic bladder CA with CA-associated pain, reports 01/07 pain - increase MS contin to 110 tid, increase morphine liquid [immediate-release] 30 mg q4h prn and titrate upwards as needed; continue dexamethasone [palliative per Dr Amador from Heme-Onc] - continue lorazepam, haloperidol, trazodone prn VTE ppx - no heparin as it is not palliative dispo - plan discharge to hospice facility as pt cannot take care of self In my clinical judgment, the patient requires continued inpatient hospitalization for the following reasons: placement [waiting for bed at [facility]] Total time managing care of this patient today: 15 minutes. Quality Stroke Does the patient have a stroke diagnosis?: No VTE Prior VTE?: No VTE Risk Level:: Medical - moderate - high VTE Device Contraindication: Treatment Not Indicated VTE Drug Contraindication: Treatment Not Indicated
[2024-07-19 10:23] VITALS: PULSE 82; RESP 18; O2SAT 96
[2024-07-19 20:00] VITALS: RESP 18
[2024-07-19] MEDS: traZODone HCL 100 MG TABLET PO (20:09)
[2024-07-20] VITALS (7 sets, daily range): BP systolic 156–176; BP diastolic 70–80; PULSE 62–114; RESP 14–18; TEMP 36.1–36.5; O2SAT 93–97
[2024-07-20] MEDS: Docusate Sodium 100 MG CAPSULE PO ×2 (07:54→20:31)
[2024-07-20] MEDS: polyethylene glycoL 3350 17 GM POWD.PACK PO (07:54)
[2024-07-20] MEDS: Morphine Sulfate ER 30 MG TABLET.ER PO ×3 (07:55→20:31)
[2024-07-20] MEDS: Morphine Sulfate ER 30 MG TABLET.ER 90 MG PO (07:55)
[2024-07-20] MEDS: dexAMETHasone 4 MG TABLET PO ×2 (07:56→17:15)
[2024-07-20] MEDS: Albuterol Sulfate (0.083%) 2.5 MG/3 ML VIAL.NEB INHALE (10:41)
--- NOTE | 2024-07-20 12:05 | MHC.CM.PN ---
Patient on [facility] with [facility]. His [facility] is pending. The application has been sent to facilities. There have been no SNF bed offers. There is either no male bed or the facilities are OON. A message requesting male bed offers has been made. A message has been sent to the facilities that are OON: we have denials for authorization. The only bed is pending at [facility]. The Patient will change from [facility] hospice to respite. CM Director notfied.
[2024-07-20] MEDS: LORazepam 1 MG TABLET PO ×2 (12:39→22:32)
--- NOTE | 2024-07-20 13:37 | HO.PM.IMPN ---
Subjective Subjective Date of Service: 07/20/24 Interval History: hospice/gip/comfort care patient pain reasonably controlled Physical Exam Vital Signs: Vital Signs: Last Vital Signs Temp 97.1 F 07/18/24 07:21 Pulse 82 07/20/24 10:41 Resp 16 07/20/24 10:41 BP 158/74 H 07/18/24 07:21 Pulse Ox 96 07/18/24 07:21 O2 Del Method Room Air 07/18/24 07:21 O2 Flow Rate 2 07/11/24 19:10 BMI result Body Mass Index 26.6 No distress, alert, oriented expressing himself Objective Data Active Medications Acetaminophen (Acetaminophen 325 Mg Tablet) 650 mg PO Q6H PRN PRN Reason: Fever Albuterol Sulfate (Albuterol Sulfate (0.083%) 2.5 Mg/3 Ml Vial.Neb) 2.5 mg INHALE Q4H PRN PRN Reason: Shortness of Breath/Wheezing Last Admin: 07/20/24 10:41 Dose: 2.5 mg Documented By: THAIS Bisacodyl (Bisacodyl 10 Mg Supp.Rect) 10 mg [place] BEDTIME PRN PRN Reason: Constipation Dexamethasone (Dexamethasone 4 Mg Tablet) 4 mg PO BIDWM [facility] Last Admin: 07/20/24 07:56 Dose: 4 mg Documented By: KEVIN Docusate Sodium (Docusate Sodium 100 Mg Capsule) 100 mg PO BID [facility] Last Admin: 07/20/24 07:54 Dose: 100 mg Documented By: KEVIN Haloperidol (Haloperidol 1 Mg Tablet) 1 mg PO BID PRN PRN Reason: Anxiety/Restlessness Last Admin: 07/19/24 03:55 Dose: 1 mg Documented By: ALEJANDRA Lactulose (Lactulose 20 Gm/30 Ml Solution) 20 gm PO DAILY PRN PRN Reason: Constipation Lorazepam (Lorazepam 1 Mg Tablet) 1 mg PO Q6H PRN PRN Reason: anxiety/restlessness Last Admin: 07/20/24 12:39 Dose: 1 mg Documented By: KEVIN Morphine Sulfate (Morphine Sulfate Oral Ericka 10 Mg/5 Ml Solution) 20 mg SUBLINGUAL Q4H PRN PRN Reason: pain,severe Last Admin: 07/19/24 16:28 Dose: 20 mg Documented By: PRETTY Morphine Sulfate (Morphine Sulfate Er 30 Mg Tablet.Er) 30 mg PO TID [facility] Last Admin: 07/20/24 07:55 Dose: 30 mg Documented By: KEVIN Ondansetron HCl (Ondansetron Hcl 4 Mg/2 Ml Vial) 4 mg IVPUSH Q8H PRN PRN Reason: Nausea Polyethylene Glycol (Polyethylene Glycol 3350 17 Gm Powd.Pack) 17 gm PO DAILY [facility] Last Admin: 07/20/24 07:54 Dose: 17 gm Documented By: KEVIN Senna (Sennosides 8.6 Mg Tablet) 17.2 mg PO BEDTIME PRN PRN Reason: Constipation Trazodone HCl (Trazodone Hcl 100 Mg Tablet) 100 mg PO BEDTIME PRN PRN Reason: sleep Last Admin: 07/19/24 20:09 Dose: 100 mg Documented By: CHAGO Assessment and Plan (1) Metastatic cancer: Status: Acute (2) Bladder carcinoma: Status: Acute Plan d15 for 74yo M with metastatic bladder CA, CKD3, HTN, mood disorder, asthma, 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 admitted under [facility] H[facility] for uncontrolled pain metastatic bladder CA with CA-associated pain, reports 01/07 pain - increase MS contin to 110 tid, increase morphine liquid [immediate-release] 30 mg q4h prn and titrate upwards as needed; continue dexamethasone [palliative per Dr Amador from Heme-Onc] - continue lorazepam, haloperidol, trazodone prn VTE ppx - no heparin as it is not palliative dispo - plan discharge to hospice facility as pt cannot take care of self In my clinical judgment, the patient requires continued inpatient hospitalization for the following reasons: placement [waiting for bed at [facility]] Total time managing care of this patient today: 15 minutes. Quality Stroke Does the patient have a stroke diagnosis?: No VTE Prior VTE?: No VTE Risk Level:: Medical - moderate - high VTE Device Contraindication: Treatment Not Indicated VTE Drug Contraindication: Treatment Not Indicated
[2024-07-20] MEDS: Morphine Sulfate Oral Sol 10 MG/5 ML SOLUTION 20 MG SUBLINGUAL ×2 (17:15→22:32)
[2024-07-20] MEDS: traZODone HCL 100 MG TABLET PO (20:31)
[2024-07-21] MEDS: Albuterol Sulfate (0.083%) 2.5 MG/3 ML VIAL.NEB INHALE ×2 (02:07→05:56)
[2024-07-21 02:08] VITALS: PULSE 112; RESP 18; O2SAT 95
[2024-07-21] MEDS: HaloperidoL 1 MG TABLET PO (02:16)
[2024-07-21] MEDS: Morphine Sulfate Oral Sol 10 MG/5 ML SOLUTION 20 MG SUBLINGUAL ×3 (02:16→14:59)
[2024-07-21] MEDS: LORazepam 1 MG TABLET PO ×3 (03:15→12:30)
[2024-07-21 03:22] VITALS: RESP 16
--- NOTE | 2024-07-21 03:26 | PC.NURSE ---
Addendum entered by Lynette Chase RN 07/21/24 06:47: Patient again c/o anxiety this morning. MD notified, additional order for po ativan placed though still pending pharmacy verifcation at this time. Pharmacy called and med verification requested. Handoff report given. 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 03:00 hour: patient still c/o anxiety/difficulty breathing despite being due for reassessment of prn morphine and prn haldol. Pt had also received a respiratory treatment at 02:07 ordered q4hr prn. Pt did appear visibly anxious. Pt educated to placed 2L nc back on (pt found intermittently removing it overnight). Covering Dr. Macias notified of this, MD orders okay to give prn ativan early/now. Effectiveness pending. Frequent reassurance provided. Plan of care continues.
[2024-07-21 04:14] VITALS: RESP 20
[2024-07-21 05:56] VITALS: PULSE 97; RESP 20; O2SAT 97
[2024-07-21] MEDS: dexAMETHasone 4 MG TABLET PO ×2 (07:31→17:06)
[2024-07-21 07:54] VITALS: BP 145/93; PULSE 95; RESP 18; TEMP 36.4; O2SAT 99
[2024-07-21] MEDS: Morphine Sulfate ER 30 MG TABLET.ER PO ×3 (09:09→21:06)
[2024-07-21] MEDS: Docusate Sodium 100 MG CAPSULE PO ×2 (09:09→21:07)
[2024-07-21] MEDS: polyethylene glycoL 3350 17 GM POWD.PACK PO (09:09)
--- NOTE | 2024-07-21 10:53 | HO.PM.IMPN ---
Subjective Subjective Date of Service: 07/21/24 Interval History: hospice/gip/comfort care patient pain reasonably controlled no new issues Physical Exam Vital Signs: Vital Signs: Last Vital Signs Temp 97.5 F 07/21/24 07:54 Pulse 95 07/21/24 07:54 Resp 18 07/21/24 07:54 BP 145/93 H 07/21/24 07:54 Pulse Ox 99 07/21/24 07:54 O2 Del Method Room Air 07/21/24 07:54 O2 Flow Rate 2 07/20/24 19:11 BMI result Body Mass Index 26.6 No distress, alert, oriented expressing himself Objective Data Active Medications Acetaminophen (Acetaminophen 325 Mg Tablet) 650 mg PO Q6H PRN PRN Reason: Fever Albuterol Sulfate (Albuterol Sulfate (0.083%) 2.5 Mg/3 Ml Vial.Neb) 2.5 mg INHALE Q4H PRN PRN Reason: Shortness of Breath/Wheezing Last Admin: 07/21/24 05:56 Dose: 2.5 mg Documented By: HAO Bisacodyl (Bisacodyl 10 Mg Supp.Rect) 10 mg [place] BEDTIME PRN PRN Reason: Constipation Dexamethasone (Dexamethasone 4 Mg Tablet) 4 mg PO BIDWM [facility] Last Admin: 07/21/24 07:31 Dose: 4 mg Documented By: LOKESH Docusate Sodium (Docusate Sodium 100 Mg Capsule) 100 mg PO BID [facility] Last Admin: 07/21/24 09:09 Dose: 100 mg Documented By: LOKESH Haloperidol (Haloperidol 1 Mg Tablet) 1 mg PO BID PRN PRN Reason: Anxiety/Restlessness Last Admin: 07/21/24 02:16 Dose: 1 mg Documented By: ALEJANDRA Lactulose (Lactulose 20 Gm/30 Ml Solution) 20 gm PO DAILY PRN PRN Reason: Constipation Lorazepam (Lorazepam 1 Mg Tablet) 1 mg PO Q6H PRN PRN Reason: anxiety/restlessness Last Admin: 07/21/24 03:15 Dose: 1 mg Documented By: PHILL Comments: early dose ok per Morphine Sulfate (Morphine Sulfate Oral Ericka 10 Mg/5 Ml Solution) 20 mg SUBLINGUAL Q4H PRN PRN Reason: pain,severe Last Admin: 07/21/24 06:00 Dose: 20 mg Documented By: ALEJANDRA Morphine Sulfate (Morphine Sulfate Er 30 Mg Tablet.Er) 30 mg PO TID [facility] Last Admin: 07/21/24 09:09 Dose: 30 mg Documented By: LOKESH Ondansetron HCl (Ondansetron Hcl 4 Mg/2 Ml Vial) 4 mg IVPUSH Q8H PRN PRN Reason: Nausea Polyethylene Glycol (Polyethylene Glycol 3350 17 Gm Powd.Pack) 17 gm PO DAILY [facility] Last Admin: 07/21/24 09:09 Dose: 17 gm Documented By: LOKESH Senna (Sennosides 8.6 Mg Tablet) 17.2 mg PO BEDTIME PRN PRN Reason: Constipation Trazodone HCl (Trazodone Hcl 100 Mg Tablet) 100 mg PO BEDTIME PRN PRN Reason: sleep Last Admin: 07/20/24 20:31 Dose: 100 mg Documented By: ALEJANDRA Assessment and Plan (1) Metastatic cancer: Status: Acute (2) Bladder carcinoma: Status: Acute Plan 74yo M with metastatic bladder CA, CKD3, HTN, mood disorder, asthma, 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 Quality Stroke Does the patient have a stroke diagnosis?: No VTE Prior VTE?: No VTE Risk Level:: Medical - moderate - high VTE Device Contraindication: Treatment Not Indicated VTE Drug Contraindication: Treatment Not Indicated
--- NOTE | 2024-07-21 15:22 | MHC.CM.PN ---
No bed offers have been received. Additional referrals have been made.
[2024-07-21] MEDS: traZODone HCL 100 MG TABLET PO (21:06)
[2024-07-21 23:54] VITALS: RESP 16
[2024-07-22] MEDS: Morphine Sulfate Oral Sol 10 MG/5 ML SOLUTION 20 MG SUBLINGUAL ×3 (00:08→11:59)
[2024-07-22] MEDS: Scopolamine 1.5 MG PATCH.TD.3 EAR-BEHIND ×2 (02:28→14:15)
[2024-07-22 03:13] VITALS: RESP 16
[2024-07-22] MEDS: Morphine Sulfate ER 30 MG TABLET.ER PO (10:34)
[2024-07-22] MEDS: Docusate Sodium 100 MG CAPSULE PO ×2 (10:35→21:06)
[2024-07-22] MEDS: dexAMETHasone 4 MG TABLET PO ×2 (10:36→16:13)
[2024-07-22] MEDS: LORazepam 1 MG TABLET PO (11:12)
--- NOTE | 2024-07-22 11:17 | HO.OSTOMY ---
Ostomy Consult: Follow up 74yr old?Male admitted to [facility] on 07/03/24 15:30 - See progress notes and H&P for detailed history.?Ostomy consult follow up for Urostomy with leaking and difficult to pouch stoma.? Todays pouch assessment reveals leaking noted from the 3 o'clock location taped in place. Bed linen changed and pat washed. of importance Belt was not in place. Additional supplies delivered to bedside at the bedside the patient has enough for 1 pouch change. Specialty order was placed for supplies as patient continues to wait for placement. The stoma template was labeled and left at bedside table along with written and printed step by step pouch instructions tapes to wipe board in room. Information from last assessment: Patient agreeable to assessment and photo documentation.? Patient is alert and awake pleasant and making polite conversation at the time of my consult. Patient is known to this music writer from previous consultations. Patient is known to use a Convex pouch normally as pouch adherence difficult due to it being with in his crease of his abdomen. He is agreeable to a pouch change into Coloplast Convex pouch # [id number] (only available from inpt wound care nurse). The creases on either side at 3 and 9 o'clock were filled with Brava Barrier Strip Paste (Storeroom#[id number]) including his umbilicus as this was a source of leaking when assessed. Pouch cut to 25MM oval. Pouch completed with Coloplast Elastic C strips to hold in place and a Brava Belt. (These are also only available from inpt wound care nurse). Please reuse belt this is not a onetime use item. 07/13/24 Stoma Step by Step Instructions: Lay patient flat to apply pouch - he has to many creases to bit in another position and get a good seal. Remove pouch every 3 days. Change sooner if you notice any leaking. ?Do not reinforce with tape. Clean skin around stoma with warm water and soft cloth. ?Avoid using soaps or lotions. ?Do not use Adhesive remover. *Soaps can contain aloes/lanolins/extracts which leave film on skin that will interfere with pouch adherence Pat skin dry. Prepare products; Cut ostomy pouch approximately 25MM round - Use Templates left at bedside, Coloplast Convex pouch [id number] (Special order). Pat skin dry again the next part must be done fast. Fill the 3 and 9 o'clock creases with Brava Barrier Strip Paste and the umbilicus as well. Remove adhesive paper backing from back of pouch wafer apply Gentle Warm pressure to seal the wafer to his skin. ? Complete pouch change with application of [place] Varina Elastic C strips to allow for added adherence. ?Complete with belt application - pt instructed to wear the belt to for added pressure to correct the way the stoma faces. ? Supplies needed 3 and 9 o'clock area filled with brave strip paste [place] Varina Elastic C strips Pouch in place with belt Stoma - red moist round and above skin level but with in skin fold - needs convexity. Peristomal skin intact. Coloplast barrier ring used along with convex pouch [id number] and curved barrier strips to seal and belt. He was agreeable to these steps. Applied without complications. Of note while changing spied linen on bed sacrum noted for Evidence of previous full thickness tissue injury noted. Tissue remains intact at this time. Preventative measure in place, Q2hr turns, Off load with pillows, barrier cream to be applied and GRAHAM pump on bed. 07/13/24 Sacrum
[2024-07-22] MEDS: Acetaminophen 325 MG TABLET 650 MG PO (12:06)
[2024-07-22] MEDS: HaloperidoL 1 MG TABLET PO (14:15)
--- NOTE | 2024-07-22 14:17 | P.PNIM_ITS ---
Subjective Subjective Date of Service: 07/22/24 Interval History: metastatic bladder CA Review of Systems more weaker pain similar Physical Exam Vital Signs: Vital Signs: Last Vital Signs Temp 97.5 F 07/21/24 07:54 Pulse 95 07/21/24 07:54 Resp 16 07/22/24 03:13 BP 145/93 H 07/21/24 07:54 Pulse Ox 99 07/21/24 07:54 O2 Del Method Room Air 07/21/24 07:54 O2 Flow Rate 2 07/20/24 19:11 BMI result Body Mass Index 26.6 No distress, awake ,weak Objective Data Active Medications Acetaminophen (Acetaminophen 325 Mg Tablet) 650 mg PO Q6H PRN PRN Reason: Fever Albuterol/Ipratropium (Albuterol/Iprat 2.5/0.5mg 3 Ml Ampul.Neb) 3 ml INHALE RQ4H WHILE AWAKE [facility] Bisacodyl (Bisacodyl 10 Mg Supp.Rect) 10 mg [place] BEDTIME PRN PRN Reason: Constipation Dexamethasone (Dexamethasone 4 Mg Tablet) 4 mg PO BIDWM [facility] Last Admin: 07/22/24 10:36 Dose: 4 mg Documented By: MAYRA Docusate Sodium (Docusate Sodium 100 Mg Capsule) 100 mg PO BID [facility] Last Admin: 07/22/24 10:35 Dose: 100 mg Documented By: MAYRA Haloperidol (Haloperidol 1 Mg Tablet) 1 mg PO BID PRN PRN Reason: Anxiety/Restlessness Last Admin: 07/22/24 14:15 Dose: 1 mg Documented By: MAYRA Lactulose (Lactulose 20 Gm/30 Ml Solution) 20 gm PO DAILY PRN PRN Reason: Constipation Lorazepam (Lorazepam 1 Mg Tablet) 1 mg PO Q6H PRN PRN Reason: anxiety/restlessness Last Admin: 07/22/24 11:12 Dose: 1 mg Documented By: MAYRA Morphine Sulfate (Morphine Sulfate 4 Mg/Ml Cartridge) 4 mg IVPUSH Q4H PRN; Protocol PRN Reason: Pain, Severe (Pain Scale 7-10) Morphine Sulfate (Morphine Sulfate Oral Ericka 10 Mg/5 Ml Solution) 20 mg SUBLINGUAL Q4H PRN PRN Reason: Pain, Moderate(Pain Scale 4-6) Ondansetron HCl (Ondansetron Hcl 4 Mg/2 Ml Vial) 4 mg IVPUSH Q8H PRN PRN Reason: Nausea Polyethylene Glycol (Polyethylene Glycol 3350 17 Gm Powd.Pack) 17 gm PO DAILY [facility] Last Admin: 07/22/24 10:33 Dose: Not Given Documented By: MAYRA Non-Admin Reason: Patient Refused Scopolamine (Scopolamine 1.5 Mg Patch.Td.3) 1.5 mg EAR-BEHIND Q72H [facility] Last Admin: 07/22/24 14:15 Dose: 1.5 mg Documented By: MAYRA Senna (Sennosides 8.6 Mg Tablet) 17.2 mg PO BEDTIME PRN PRN Reason: Constipation Trazodone HCl (Trazodone Hcl 100 Mg Tablet) 100 mg PO BEDTIME PRN PRN Reason: sleep Last Admin: 07/21/24 21:06 Dose: 100 mg Documented By: TEETEE Assessment and Plan (1) Cancer associated pain: Status: Acute (2) Metastatic cancer: Status: Acute Plan 74yo M with metastatic bladder CA, CKD3, HTN, mood disorder, asthma, 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 Hospice for uncontrolled pain metastatic bladder CA with CA-associated pain pain similar added iv morphine , lorazepam, haloperidol, trazodone prn,scoplamaine patch patient is hospice/comfort care patient- d/w patient family and hospice staff . continue above amangement. Quality Stroke Does the patient have a stroke diagnosis?: No VTE Prior VTE?: No VTE Risk Level:: Medical - moderate - high VTE Device Contraindication: Treatment Not Indicated VTE Drug Contraindication: Treatment Not Indicated
--- NOTE | 2024-07-22 14:41 | MHC.CM.PN ---
Hospice nurse has reported a significant decline in the patient. Dr Mendoza has changed the pt's medication to IV. Per Josefina requested Patient be reverted back to GIP for symptom control.
[2024-07-22 14:55] VITALS: PULSE 95; RESP 16; O2SAT 96
[2024-07-22] MEDS: Albuterol/Iprat 2.5/0.5MG 3 ML AMPUL.NEB INHALE ×2 (14:55→18:54)
[2024-07-22] MEDS: Morphine Sulfate 4 MG/ML CARTRIDGE IVPUSH ×2 (16:13→21:06)
[2024-07-22 18:54] VITALS: PULSE 98; RESP 16; O2SAT 91
--- NOTE | 2024-07-22 19:05 | PC.NURSE ---
pt refused PO meds and any oral intake this morning and consumed minimal breakfast. Later pt more agreeable to taking PO meds but experiencing difficulty swallowing. Dr. Mendoza notified and recommended placing an IV. Pt now with IV access.
[2024-07-22 21:06] VITALS: RESP 17
[2024-07-22] MEDS: LORazepam 2 MG/ML VIAL 1 MG IVPUSH (21:07)
[2024-07-23 02:55] VITALS: RESP 19
[2024-07-23] MEDS: Morphine Sulfate 4 MG/ML CARTRIDGE IVPUSH ×2 (02:55→10:19)
[2024-07-23] MEDS: LORazepam 2 MG/ML VIAL 1 MG IVPUSH ×2 (03:06→13:18)
[2024-07-23 07:50] VITALS: PULSE 88; RESP 22; O2SAT 90
[2024-07-23] MEDS: Albuterol/Iprat 2.5/0.5MG 3 ML AMPUL.NEB INHALE ×5 (07:51→20:33)
[2024-07-23] MEDS: Docusate Sodium 100 MG CAPSULE PO ×2 (09:59→20:20)
[2024-07-23] MEDS: dexAMETHasone 4 MG TABLET PO ×2 (09:59→16:39)
[2024-07-23 11:24] VITALS: PULSE 70; RESP 14; O2SAT 93
[2024-07-23] MEDS: Morphine Sulfate ER 30 MG TABLET.ER PO ×2 (14:29→20:20)
[2024-07-23 14:51] VITALS: PULSE 76; RESP 22; O2SAT 91
--- NOTE | 2024-07-23 16:51 | P.PNIM_ITS ---
Subjective Subjective Date of Service: 07/23/24 Interval History: metastatic bladder CA Review of Systems more weaker pain similar Physical Exam Vital Signs: Vital Signs: Last Vital Signs Temp 97.5 F 07/21/24 07:54 Pulse 76 07/23/24 14:51 Resp 22 H 07/23/24 14:51 BP 145/93 H 07/21/24 07:54 Pulse Ox 99 07/21/24 07:54 O2 Del Method Room Air 07/21/24 07:54 O2 Flow Rate 2 07/20/24 19:11 BMI result Body Mass Index 26.6 No distress, awake ,weak Objective Data Active Medications Acetaminophen (Acetaminophen 325 Mg Tablet) 650 mg PO Q6H PRN PRN Reason: Fever Albuterol/Ipratropium (Albuterol/Iprat 2.5/0.5mg 3 Ml Ampul.Neb) 3 ml INHALE RQ4H WHILE AWAKE [facility] Last Admin: 07/23/24 14:51 Dose: 3 ml Documented By: HAFSA Albuterol/Ipratropium (Albuterol/Iprat 2.5/0.5mg 3 Ml Ampul.Neb) 3 ml INHALE Q3H PRN PRN Reason: sob Bisacodyl (Bisacodyl 10 Mg Supp.Rect) 10 mg [place] BEDTIME PRN PRN Reason: Constipation Dexamethasone (Dexamethasone 4 Mg Tablet) 4 mg PO BIDWM [facility] Last Admin: 07/23/24 16:39 Dose: 4 mg Documented By: ROSIBEL Docusate Sodium (Docusate Sodium 100 Mg Capsule) 100 mg PO BID [facility] Last Admin: 07/23/24 09:59 Dose: 100 mg Documented By: ROSIBEL Haloperidol Lactate (Haloperidol Lactate Oral Conc 10 Mg/5 Ml Oral.Conc) 1 mg SUBLINGUAL BID [facility] Lactulose (Lactulose 20 Gm/30 Ml Solution) 20 gm PO DAILY PRN PRN Reason: Constipation Lorazepam (Lorazepam 1 Mg Tablet) 1 mg PO Q4H PRN PRN Reason: anxiety/restlessness Morphine Sulfate (Morphine Sulfate 4 Mg/Ml Cartridge) 4 mg IVPUSH Q4H PRN; Protocol PRN Reason: Pain, Severe (Pain Scale 7-10) Last Admin: 07/23/24 10:19 Dose: 4 mg Documented By: ROSIBEL Morphine Sulfate (Morphine Sulfate Oral Ericka 10 Mg/5 Ml Solution) 20 mg SUBLINGUAL Q4H PRN PRN Reason: Pain, Moderate(Pain Scale 4-6) Morphine Sulfate (Morphine Sulfate Er 30 Mg Tablet.Er) 30 mg PO TID [facility] Last Admin: 07/23/24 14:29 Dose: 30 mg Documented By: ROSIBEL Ondansetron HCl (Ondansetron Hcl 4 Mg/2 Ml Vial) 4 mg IVPUSH Q8H PRN PRN Reason: Nausea Polyethylene Glycol (Polyethylene Glycol 3350 17 Gm Powd.Pack) 17 gm PO DAILY [facility] Last Admin: 07/22/24 10:33 Dose: Not Given Documented By: MAYRA Non-Admin Reason: Patient Refused Scopolamine (Scopolamine 1.5 Mg Patch.Td.3) 1.5 mg EAR-BEHIND Q72H [facility] Last Admin: 07/22/24 14:15 Dose: 1.5 mg Documented By: MAYRA Senna (Sennosides 8.6 Mg Tablet) 17.2 mg PO BEDTIME PRN PRN Reason: Constipation Trazodone HCl (Trazodone Hcl 100 Mg Tablet) 100 mg PO BEDTIME [facility] Assessment and Plan (1) Cancer associated pain: Status: Acute (2) Metastatic cancer: Status: Acute Plan 74yo M with metastatic bladder CA, CKD3, HTN, mood disorder, asthma, 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 continue above amangement. Quality Stroke Does the patient have a stroke diagnosis?: No VTE Prior VTE?: No VTE Risk Level:: Medical - moderate - high VTE Device Contraindication: Treatment Not Indicated VTE Drug Contraindication: Treatment Not Indicated
[2024-07-23 17:28] VITALS: PULSE 119; RESP 22; O2SAT 95
[2024-07-23] MEDS: Haloperidol Lactate Oral Conc 10 MG/5 ML ORAL.CONC SUBLINGUAL (20:20)
[2024-07-23] MEDS: traZODone HCL 100 MG TABLET PO (20:20)
[2024-07-23 20:33] VITALS: PULSE 98; RESP 22; O2SAT 94
[2024-07-23] MEDS: HYDROmorphone HCl 1 MG/ML SYRINGE IVPUSH (22:40)
[2024-07-23] MEDS: LORazepam 1 MG TABLET PO (23:51)
[2024-07-24] MEDS: Morphine Sulfate 4 MG/ML CARTRIDGE IVPUSH ×4 (01:02→09:22)
--- NOTE | 2024-07-24 03:06 | PC.NURSE ---
Patient still very anxious, asking frequently for respiratory treatments, taking oxygen off at times. Per Dr Gibbons morphine IV is now q2hr PRN . Also Ativan is changed to IV.
[2024-07-24] MEDS: LORazepam 2 MG/ML VIAL 1 MG IVPUSH ×4 (04:14→19:51)
[2024-07-24] MEDS: Albuterol/Iprat 2.5/0.5MG 3 ML AMPUL.NEB INHALE ×4 (07:30→19:39)
[2024-07-24 07:31] VITALS: PULSE 95; RESP 22; O2SAT 95
[2024-07-24] MEDS: Morphine Sulfate ER 30 MG TABLET.ER PO ×3 (08:04→19:52)
[2024-07-24] MEDS: Haloperidol Lactate Oral Conc 10 MG/5 ML ORAL.CONC SUBLINGUAL ×2 (08:04→19:53)
[2024-07-24] MEDS: dexAMETHasone 4 MG TABLET PO ×2 (08:04→17:25)
[2024-07-24] MEDS: Docusate Sodium 100 MG CAPSULE PO ×2 (08:04→19:52)
[2024-07-24] MEDS: HYDROmorphone HCl 1 MG/ML SYRINGE IVPUSH ×5 (10:46→23:35)
[2024-07-24 11:59] VITALS: PULSE 90; RESP 20; O2SAT 95
[2024-07-24] MEDS: Atropine Sulfate 1 % Ophth Sol 2 ML BOTTLE 2 DROP SUBLINGUAL ×2 (12:28→16:26)
--- NOTE | 2024-07-24 12:57 | HO.OSTOMY ---
Ostomy Consult: Follow up 74yr old?Male admitted to [facility] on 07/03/24 15:30 - See progress notes and H&P for detailed history.?Ostomy consult follow up for Urostomy with leaking and difficult to pouch stoma.? Todays pouch assessment reveals intact pouch no leaking noted Belt was in place. Additional supplies delivered to bedside at the bedside the patient has enough for several pouch changes. Specialty order was delivered as patient continues to wait for placement. The stoma template was labeled and left at bedside table along with written and printed step by step pouch instructions tapes to wipe board in room. Inpatient ostomy nurse will continue to loosely follow along for supply needs.
--- NOTE | 2024-07-24 13:06 | HO.PM.IMPN ---
Subjective Subjective Date of Service: 07/24/24 Interval History: metastatic bladder CA Review of Systems seems similar sitting , has pain similar . Physical Exam Vital Signs: Vital Signs: Last Vital Signs Temp 97.5 F 07/21/24 07:54 Pulse 90 07/24/24 11:59 Resp 20 07/24/24 11:59 BP 145/93 H 07/21/24 07:54 Pulse Ox 99 07/21/24 07:54 O2 Del Method Room Air 07/21/24 07:54 O2 Flow Rate 2 07/20/24 19:11 BMI result Body Mass Index 26.6 awake ,generlaised weak,mild anxious Objective Data Active Medications Acetaminophen (Acetaminophen 325 Mg Tablet) 650 mg PO Q6H PRN PRN Reason: Fever Albuterol/Ipratropium (Albuterol/Iprat 2.5/0.5mg 3 Ml Ampul.Neb) 3 ml INHALE RQ4H WHILE AWAKE [facility] Last Admin: 07/24/24 11:59 Dose: 3 ml Documented By: THAIS Albuterol/Ipratropium (Albuterol/Iprat 2.5/0.5mg 3 Ml Ampul.Neb) 3 ml INHALE Q3H PRN PRN Reason: sob Last Admin: 07/23/24 17:28 Dose: 3 ml Documented By: CLINTNO Atropine Sulfate (Atropine Sulfate 1 % Oph Ericka 2 Ml Bottle) 2 drop SUBLINGUAL Q4H PRN PRN Reason: Secretions Last Admin: 07/24/24 12:28 Dose: 2 drop Documented By: JAMAICA Bisacodyl (Bisacodyl 10 Mg Supp.Rect) 10 mg [place] BEDTIME PRN PRN Reason: Constipation Dexamethasone (Dexamethasone 4 Mg Tablet) 4 mg PO BIDWM [facility] Last Admin: 07/24/24 08:04 Dose: 4 mg Documented By: JAMAICA Docusate Sodium (Docusate Sodium 100 Mg Capsule) 100 mg PO BID [facility] Last Admin: 07/24/24 08:04 Dose: 100 mg Documented By: JAMAICA Haloperidol Lactate (Haloperidol Lactate Oral Conc 10 Mg/5 Ml Oral.Conc) 1 mg SUBLINGUAL BID [facility] Last Admin: 07/24/24 08:04 Dose: 1 mg Documented By: JAMAICA Hydromorphone HCl (Hydromorphone Hcl 1 Mg/Ml Syringe) 1 mg IVPUSH Q2H PRN; Protocol PRN Reason: Pain, Severe (Pain Scale 7-10) Last Admin: 07/24/24 12:48 Dose: 1 mg Documented By: JAMAICA Lactulose (Lactulose 20 Gm/30 Ml Solution) 20 gm PO DAILY PRN PRN Reason: Constipation Lorazepam (Lorazepam 2 Mg/Ml Vial) 1 mg IVPUSH Q4H PRN PRN Reason: Anxiety Last Admin: 07/24/24 09:52 Dose: 1 mg Documented By: JAMAICA Morphine Sulfate (Morphine Sulfate Er 30 Mg Tablet.Er) 30 mg PO TID [facility] Last Admin: 07/24/24 08:04 Dose: 30 mg Documented By: JAMAICA Ondansetron HCl (Ondansetron Hcl 4 Mg/2 Ml Vial) 4 mg IVPUSH Q8H PRN PRN Reason: Nausea Polyethylene Glycol (Polyethylene Glycol 3350 17 Gm Powd.Pack) 17 gm PO DAILY [facility] Last Admin: 07/22/24 10:33 Dose: Not Given Documented By: MAYRA Non-Admin Reason: Patient Refused Scopolamine (Scopolamine 1.5 Mg Patch.Td.3) 1.5 mg EAR-BEHIND Q72H [facility] Last Admin: 07/22/24 14:15 Dose: 1.5 mg Documented By: MAYRA Senna (Sennosides 8.6 Mg Tablet) 17.2 mg PO BEDTIME PRN PRN Reason: Constipation Trazodone HCl (Trazodone Hcl 100 Mg Tablet) 100 mg PO BEDTIME [facility] Last Admin: 07/23/24 20:20 Dose: 100 mg Documented By: ZONIA Assessment and Plan (1) Cancer associated pain: Status: Acute (2) Metastatic cancer: Status: Acute Plan 74yo M with metastatic bladder CA, CKD3, HTN, mood disorder, asthma, 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 continue above amangement. Quality Stroke Does the patient have a stroke diagnosis?: No VTE Prior VTE?: No VTE Risk Level:: Medical - moderate - high VTE Device Contraindication: Treatment Not Indicated VTE Drug Contraindication: Treatment Not Indicated
--- NOTE | 2024-07-24 15:11 | MHC.CM.PN ---
Met with Hospice SW and later opal polisher. Patient continues on GIP for management of symptoms. Medication changes have been made for symptoms: pain, anxiety and SOB. IV medications are being used. CM will continue follow.
[2024-07-24 16:29] VITALS: PULSE 90; RESP 15; O2SAT 96
[2024-07-24 19:39] VITALS: PULSE 125; RESP 32; O2SAT 88
[2024-07-24] MEDS: traZODone HCL 100 MG TABLET PO (19:52)
[2024-07-25] MEDS: LORazepam 2 MG/ML VIAL 1 MG IVPUSH ×7 (01:45→18:17)
[2024-07-25] MEDS: Atropine Sulfate 1 % Ophth Sol 2 ML BOTTLE 2 DROP SUBLINGUAL (07:49)
[2024-07-25] MEDS: HYDROmorphone HCl 1 MG/ML SYRINGE IVPUSH ×8 (07:49→14:56)
[2024-07-25 08:12] VITALS: PULSE 118; RESP 26; O2SAT 84
[2024-07-25] MEDS: Albuterol/Iprat 2.5/0.5MG 3 ML AMPUL.NEB INHALE (08:12)
--- NOTE | 2024-07-25 11:41 | P.PNIM_ITS ---
Subjective Subjective Date of Service: 07/25/24 Interval History: appears terminally ill, unable to take POs Review of Systems Review of Systems: Yes Unobtainable due to mental status Physical Exam Vital Signs: Vital Signs: Last Vital Signs Temp 97.5 F 07/21/24 07:54 Pulse 118 H 07/25/24 08:12 Resp 26 H 07/25/24 08:12 BP 145/93 H 07/21/24 07:54 Pulse Ox 99 07/21/24 07:54 O2 Del Method Room Air 07/21/24 07:54 O2 Flow Rate 2 07/20/24 19:11 BMI result Body Mass Index 26.6 gen: ill-appearing lungs: wet crackles, tachypneic CV: tachycardic ext: generalized edema neuro: somnolent Objective Data Active Medications Acetaminophen (Acetaminophen 325 Mg Tablet) 650 mg PO Q6H PRN PRN Reason: Fever Albuterol/Ipratropium (Albuterol/Iprat 2.5/0.5mg 3 Ml Ampul.Neb) 3 ml INHALE Q3H PRN PRN Reason: sob Last Admin: 07/23/24 17:28 Dose: 3 ml Documented By: CLINTON Atropine Sulfate (Atropine Sulfate 1 % Ophth Ericka 2 Ml Bottle) 2 drop SUBLINGUAL Q4H PRN PRN Reason: Secretions Last Admin: 07/25/24 07:49 Dose: 2 drop Documented By: ABDIEL Bisacodyl (Bisacodyl 10 Mg Supp.Rect) 10 mg AR BEDTIME PRN PRN Reason: Constipation Haloperidol Lactate (Haloperidol Lactate Oral Conc 10 Mg/5 Ml Oral.Conc) 1 mg SUBLINGUAL BID BALA Last Admin: 07/25/24 10:22 Dose: Not Given Documented By: ABDIEL Non-Admin Reason: medications readjusted per Hydromorphone HCl (Hydromorphone Hcl 1 Mg/Ml Syringe) 1 mg IVPUSH Q2H BALA; Protocol Last Admin: 07/25/24 10:22 Dose: Not Given Documented By: ABDIEL Non-Admin Reason: PRN dose given now Hydromorphone HCl (Hydromorphone Hcl 1 Mg/Ml Syringe) 1 mg IVPUSH Q1H PRN; Protocol PRN Reason: pain or shortness of breath Lactulose (Lactulose 20 Gm/30 Ml Solution) 20 gm PO DAILY PRN PRN Reason: Constipation Lorazepam (Lorazepam 2 Mg/Ml Vial) 1 mg IVPUSH Q4H [facility] Last Admin: 07/25/24 10:45 Dose: 1 mg Documented By: ABDIEL Lorazepam (Lorazepam 2 Mg/Ml Vial) 1 mg IVPUSH Q2H PRN PRN Reason: anxiety or agitation Ondansetron HCl (Ondansetron Hcl 4 Mg/2 Ml Vial) 4 mg IVPUSH Q8H PRN PRN Reason: Nausea Scopolamine (Scopolamine 1.5 Mg Patch.Td.3) 1.5 mg EAR-BEHIND Q72H [facility] Last Admin: 07/22/24 14:15 Dose: 1.5 mg Documented By: MAYRA Assessment and Plan (1) Cancer associated pain: Status: Acute (2) Metastatic cancer: Status: Acute Plan d23 for 74yo M with metastatic bladder CA, CKD3, HTN, mood disorder, asthma, 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 Total time managing care of this patient today: 35 minutes. Quality Stroke Does the patient have a stroke diagnosis?: No VTE Prior VTE?: No VTE Risk Level:: Medical - moderate - high VTE Device Contraindication: Treatment Not Indicated VTE Drug Contraindication: Treatment Not Indicated
[2024-07-25] MEDS: Scopolamine 1.5 MG PATCH.TD.3 EAR-BEHIND (13:29)
--- NOTE | 2024-07-25 13:40 | PC.NURSE ---
At start of shift pt is lethargic and non-verbal, unable to make needs known. Pt transferred from chair to bed via warren lift. MD Villanueva and Hospice nurse at bedside with family. Pt transitioned to IV medications as cannot tolerate PO. Family is at bedside and in agreement with plan.
[2024-07-25] MEDS: HYDROmorphone HCl 1 MG/ML SYRINGE 2 MG IVPUSH (15:52)
[2024-07-25] MEDS: HYDROmorphone HCl 2 MG/ML VIAL IVPUSH ×3 (16:54→19:36)
--- NOTE | 2024-07-25 21:31 | PM.EVENT ---
Event Note Date of Service: 07/25/24 Event Note: Note I was called to patient's bedside to pronounce that the patient has . No spontaneous movements were present. There was no response to verbal or tactile stimuli. Pupils were mild dilated and fixed. No breath sounds were appreciated over either lung field. No carotid pulses were palpable. No heart sounds were auscultated over entire pericardium. Patient pronounced at 07/25/2024 - 8:55 PM. Family is aware patient has spasm wave. No autopsy will be performed. It has been documented that the patient is DNR DNI. Patient's major illness was metastatic cancer of the bladder. Time of was 8:55 PM. Time Spent With Patient Time: Total time managing care of this patient today ____ minutes.
== END 2024-07-25 22:45 | disposition expired | DRG 951 ==
LOC: HO.ED 12:55 → HO.EDOVER 15:31 → HO.S3 15:42
PROVIDERS: Admitting Provider Hospitalist; Emergency Provider Emergency Medicine; PCP Internal Medicine; Visit Provider Family Medicine
DX: Z51.5 Encounter for palliative care (principal); G89.3 Neoplasm related pain (acute) (chronic); I12.9 Hypertensive chronic kidney disease with stage 1 through stage 4 chronic kidney disease, or unspecified chronic kidney disease; N18.30 Chronic kidney disease, stage 3 unspecified; F39 Unspecified mood [affective] disorder; J45.20 Mild intermittent asthma, uncomplicated; C67.9 Malignant neoplasm of bladder, unspecified; Z90.5 Acquired absence of kidney; Z85.528 Personal history of other malignant neoplasm of kidney; Z93.6 Other artificial openings of urinary tract status; Z79.899 Other long term (current) drug therapy
CPT/HCPCS: 94640; 99285; J1171; J2060; J2270; J8540

== ENCOUNTER → 2024-07-03 15:30 | Outpatient (BNV) | payer OTHER, SELFPAY | PROVIDERS: Admitting Provider Hospitalist; Emergency Provider Emergency Medicine; PCP Internal Medicine; Visit Provider Hospitalist | DX: C79.9 Secondary malignant neoplasm of unspecified site (principal); C67.9 Malignant neoplasm of bladder, unspecified | CPT/HCPCS: 99223; 99232; 99233 ==